=== PATIENT | female | born 1970 | race Caucasian/White ===

== ENCOUNTER 2019-08-08 15:57 | Inpatient (IN) | payer SELFPAY ==
[2019-08-08] VITALS (7 sets, daily range): BP systolic 150–200; BP diastolic 94–129; PULSE 103–123; RESP 16–30; TEMP 36.8–37; O2SAT 96–99; BMI 42.7
--- NOTE | ~2019-08-08 | XR_ITS ---
EXAMINATION: XR chest 2V EXAM DATE: 08/08/2019 17:05 INDICATION: Cough and weakness. TECHNIQUE: Frontal and lateral projections of the chest obtained and reviewed. Comparison is made to prior examination from 03/13/2017. FINDINGS: The lungs are clear. There are no pleural effusions. The cardiomediastinal silhouette is within normal limits. There is no pneumothorax suspected. The bones and soft tissues are unremarkab le. IMPRESSION: No acute cardiopulmonary findings. Reviewed, dictated and finalized at location A.
--- NOTE | 2019-08-08 16:25 | PC.NURSE ---
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
--- NOTE | 2019-08-08 16:47 | ECG_ITS ---
Measurements Intervals [place] Rate: 101 P: 73 DC: 144 QRS: -58 QRSD: 93 T: 46 QT: 381 QTc: 494 Interpretive Statements SINUS TACHYCARDIA LEFT ATRIAL ENLARGEMENT LEFT ANTERIOR FASCICULAR BLOCK POOR R WAVE PROGRESSION, ANTERIOR LEADS BORDERLINE ST-T WAVE ABNORMALITY- LATERAL LEADS BASELINE WANDER- I, II, AVR, AVL, V6 ABNORMAL ECG Electronically Signed On 08-09-2019 7:09:20 CDT by Kike Barrow D.O.
--- NOTE | 2019-08-08 16:50 | ED.WEAKNESS ---
HPI - Weakness General Chief complaint: Weakness <Lilian Mercedes PA-C - Last Filed: 08/08/19 18:50> Stated complaint: achey x8 months <UTE Lopez Last Filed: 08/08/19 18:50> Time Seen by Provider: 08/08/19 16:38 <Lilian Mercedes PA-C - Last Filed: 08/08/19 18:50> Source: patient <UTE Lopez Last Filed: 08/08/19 18:50> Mode of arrival: ambulatory <UTE Lopez Last Filed: 08/08/19 18:50> Limitations: no limitations <UTE Lopez Last Filed: 08/08/19 18:50> History of Present Illness HPI Narrative: This is a 49 year old female that presents to the ER for achiness x 8 months. Reports joint pain and myalgias mostly in her lower back pain and legs. Reports she has not been seen by anyone for this. Also reports a chronic cough and some congestion for the last couple of days. Reports some intermittent abdominal pain for a while as well. Denies fever, chest pain, shortness of breath, vomiting, diarrhea, dysuria or hematuria. <UTE Lopez Last Filed: 08/08/19 18:50> Related Data Home medications: Home Medications Medication Instructions Recorded Confirmed Unable to Obtain Home Medications 08/08/19 08/08/19 <UTE Lopez Last Filed: 08/08/19 18:50> Allergies/Adverse reactions: Allergies Allergy/AdvReac Type Severity Reaction Status Date / Time No Known Allergies Verified 10/24/09 16:24 <UTE Lopez Last Filed: 08/08/19 18:50> Review of Systems Review of Systems: Narrative: CONSTITUTIONAL: Denies fever ENT: Reports rhinorrhea, congestion. Denies sore throat, or otalgia. CARDIOVASCULAR: Denies chest pain, or edema. RESPIRATORY: Reports cough. Denies dyspnea. GASTROINTESTINAL: Reports abdominal pain. Denies nausea, vomiting, or diarrhea. GENITOURINARY: Denies dysuria or hematuria. MUSCULOSKELETAL: Reports back pain, joint pain, and myalgia. NEUROLOGIC: Denies numbness, or weakness. <Lilian Mercedes PA-C - Last Filed: 08/08/19 18:50> All systems reviewed & are unremarkable except as noted in HPI and below <Lilian Mercedes PA-C - Last Filed: 08/08/19 18:50> [facility] Past Medical History Medical History: Medical History (Updated 08/08/19 @ 16:56 by Lilian Mercedes PA-C) History of hypertension <Lilian Mercedes PA-C - Last Filed: 08/08/19 18:50> Social History Social History: Social History Smoking status: Current every day smoker <Lilian Mercedes PA-C - Last Filed: 08/08/19 18:50> Exam Narrative: Exam Narrative: GENERAL: Well-appearing, obese, and in no acute distress. HEAD: Normocephalic, atraumatic. EYES: EOMI. ENT: Nares clear, no rhinorrhea or epistaxis. Mucous membranes moist. Oropharynx without tonsillar hypertrophy exudate or other lesions. Bilateral TMs pearly hartman non-bulging NECK: Supple. No adenopathy or masses. CHEST: Clear to auscultation. No respiratory distress. No wheezes rales or rhonchi HEART: Regular rate and rhythm. No murmur heard. Normal peripheral pulses. ABDOMEN: Soft, nondistended, normal active bowel sounds. Mild tenderness to palpation throughout the abdomen, without guarding EXTREMITIES: Normal range of motion. No edema. Strength equal in bilateral upper and lower extremities SKIN: Warm, dry, no rash. NEURO: No focal deficits. Alert and oriented x3. PSYCH: Normal mood and affect <Lilian Mercedes PA-C - Last Filed: 08/08/19 18:50> Course TRANSPORTATION AGENT/PA Physician Supervision For this patient encounter, I reviewed the TRANSPORTATION AGENT or PA documentation, treatment plan, and medical decision making, and I had [id number] time with this patient. <Saul Rodríguez MD - Last Filed: 08/08/19 19:20> Vital Signs Vital signs: Vital Signs Temperature 36.8 C 08/08/19 16:14 Pulse Rate 118 H 08/08/19 16:14 Respiratory Rate 16 08/08/19 16:14 Blood Pressure 170/98 H 08/08/19 16:14 Pulse Oximetry 96 08/08/19 16:14 Temperatur
[2019-08-08 17:23] LABS: Basophils Absolute Auto 0.1 K/mm3 (0.0-0.1); Eosinophils Absolute Auto 0.2 K/mm3 (0-0.3); Eosinophils Percent Auto 1.2 % (0-4.4); Hematocrit 46.4 % (37.0-47.0); Immature Granulocyte Absolute 0.05 K/mm3 (0.00-0.031); Immature Granulocyte Percent A 0.4 % (0-0.5); Lymphocytes Absolute Auto 3.63 K/mm3 (0.9-3.2); Lymphocytes Percent Auto 26.2 % (18.3-44.2); Mean Corpuscular HGB Conc 32.3 g/dl (32-36); Mean Corpuscular Hemoglobin 27.2 pg (26-34); Mean Corpuscular Volume 84.1 fl (80-100); Mean Platelet Volume 11.6 fl (7.4-10.4); Monocytes Percent Auto 6.9 % (2.6-8.5); Neutrophils Absolute Auto 8.9 K/mm3 (1.3-6.7); Neutrophils Percent Auto 64.3 % (45.5-73.1); Platelet Count Result 275 k/mm3 (150-375); Red Blood Count 5.52 M/mm3 (4.2-5.4); Red Cell Distribution Width 13.9 % (11.5-14.5); White Blood Count 13.9 K/mm3 (4.5-10.0)
[2019-08-08 17:38] LABS: Alanine Aminotransferase 26 U/L (4-35); Albumin Level 3.5 g/dL (3.5-5.1); Alkaline Phosphatase 122 U/L (38-126); Aspartate Amino Transferase 34 U/L (14-36); Bilirubin,Total 0.2 mg/dL (0.2-1.3); Blood Urea Nitrogen 20 mg/dL (7-17); Calcium 8.8 mg/dL (8.4-10.2); Carbon Dioxide 23 mmol/L (22-30); Chloride 95 mmol/L (98-107); Estimated CRCL calculation 68 ml/min; Estimated Glomerular Filt Rate > 60; Glucose 625 mg/dL (65-105); Lipase 400 U/L (23-300); Potassium 4.4 mmol/L (3.4-5.0); Sodium 127 mmol/L (137-145)
[2019-08-08 17:50] LABS: CRP < 0.5 mg/dL (<1.0)
[2019-08-08] MEDS: ONDANSETRON INJ 4 MG/2 ML VIAL IV PUSH (18:03)
[2019-08-08] MEDS: INSULIN HUMAN REGULAR (*BKC) 100 UNITS/ML 9 UNITS IV PUSH (18:03)
[2019-08-08] MEDS: hydrALAZINE HCL 20 MG/ML VIAL IV PUSH (18:03)
[2019-08-08 18:04] LABS: Beta-Hydroxybutyrate/Acetoacetate 0.07 mmol/L (0.02-0.27)
[2019-08-08 18:08] LABS: Alveolar/Arterial O2 Gradient 37.8 mmHg; Base Excess ABG -0.3 mEq/l (+/-2.0); Carboxyhemoglobin 3.8 % THb (0-2.0); Fractional Inspired Oxygen 21 %; HCO3 ABG 23.6 mEq/l (22.0-26.0); Methemoglobin ABG 0.2 %THb (0-1.5); Oxygen Content ABG 19.7 %vol (16.0-22.0); Oxygen Saturation ABG 94.2 % (95.0-100.0); Oxyhemoglobin 90.5 % THb (90.0-100.0); PCO2 ABG 36.4 mmHg (35.0-45.0); PO2 ABG 68.3 mmHg (80.0-100.0); PO2 FiO2 Ratio Arterial Blood 3.25 %; Reduced Hemoglobin 5.5 %THb (0-5.0); Total Hemoglobin 15.5 g/dL (12.0-18.0); pH ABG 7.429 (7.350-7.450)
[2019-08-08 18:09] LABS: Magnesium 1.7 mg/dL (1.6-2.3); Phosphorus 6.3 mg/dL (2.5-4.5)
[2019-08-08 18:09] LABS: Device ROOM AIR; Site Drawn RIGHT BRACHIAL
[2019-08-08] MEDS: SODIUM CHLORIDE 0.9% IV 500 ML 999 ML IV CONT (18:13)
[2019-08-08 18:29] LABS: Hemoglobin A1C 11.5 % (<5.7)
[2019-08-08] MEDS: SODIUM CHLORIDE 0.9% IV 1,000 ML 999 ML IV CONT (18:46)
[2019-08-08 19:10] LABS: Add Urine Microscopic? YES; Appearance Urine Cloudy (Clear); Bilirubin Urine Negative (Negative); Blood Urine Negative (Negative); Color Urine Yellow (Yellow); Glucose Urine UA 3+ mg/dL (Negative); Ketones Urine Negative (Negative); Leukocyte Esterase Ur Trace LEU/UL (Negative); Mucus Urine Rare /lpf; Nitrate Urine Negative (Negative); Protein Urine 3+ mg/dL (Negative); Specific Grav Ur 1.029 (1.001-1.035); Squamous Epithelial Cell Urine Many /hpf (Few); Urobilinogen Urine Negative mg/dL (<2.0); WBC Urine 51-75 /hpf
[2019-08-08 19:11] LABS: Glucose Point of Care 356 (65-105)
[2019-08-08 21:18] LABS: Glucose Point of Care 423 (65-105)
[2019-08-08] MEDS: KETOROLAC 15 MG/ML VIAL (*BKC) IV PUSH (21:29)
--- NOTE | 2019-08-08 22:31 | PM.IMHP ---
H&P: HPI History of Present Illness Chief complaint: NEW ONSET DIABETES,HYPERTENSIVE URGENCY,HYPONATREM Narrative: This is a 49 year old morbidly obese female with known HTN who presented to the hospital with a complaint of diffuse body aches, abdominal discomfort, dysuria, increased urinartion and thirst, as well as generalized weakness. The patient is known to see Dr. Isaacs but states she hasn't followed up for several months. She can't tell me off the top of her head what blood pressure medication she is on. She denies any fevers, chills, sore throat, cough, nausea, vomiting, diarrhea, or rectal bleeding. The patient was evaluted in the ER tonight and found to have severely elevated blood pressure of 200/120 mm Hg. The patient's blood glucose was found to be 625 mg/dl. Her HgbA1c came back at 11.5%. The patient has a history of gestational diabetes. This is the first time she is being told that she is diabetic. The patient was treated in the ER with 1.5 Liters of NS as well as 9 units of insulin IV push. She was also given 20 mg of Hydralazine at 5 pm. We were asked to admit the patient to the hospital for her dehydration, UTI, and new onset diabetes mellitus. Review of Systems Review of Systems: All systems reviewed & are unremarkable except as noted in HPI and below PMFSH Past Medical History Medical History Gestational diabetes History of hypertension HTN (hypertension) with goal to be determined Social History Social History Smoking packs per day: 1 Smoking cigarettes per day: 20.0 Years smoked: 35 Smoking pack-years: 35.00 Smoking status: Current every day smoker Tobacco type: cigarettes Second hand tobacco smoke exposure: Yes Alcohol intake: current Substance use: never Gender identity (if verbalized by the patient): Female Spiritual care concerns: No Agree to blood products: Yes Meds Home Medications and Allergies Home Medications Medication Instructions Recorded Confirmed Type Unable to Obtain Home Medications 08/08/19 08/08/19 History Allergies Allergy/AdvReac Type Severity Reaction Status Date / Time No Known Allergies Verified 10/24/09 16:24 Vital Signs Vital Signs - 24 hr 08/08/19 16:14 08/08/19 18:11 08/08/19 18:12 Temperature 36.8 C Pulse Rate 118 H 105 H 112 H Respiratory Rate 16 30 H Blood Pressure 170/98 H 200/120 H Pulse Oximetry 96 99 08/08/19 19:30 08/08/19 20:30 08/08/19 21:20 Temperature Pulse Rate 109 H 123 H 105 H Respiratory Rate 20 20 20 Blood Pressure 178/102 H 182/129 H 150/105 H Pulse Oximetry 99 99 99 Exam Const: General: cooperative, no acute distress, alert, awake and ill appearing chronically Nutritional Appearance: obese morbidly obese Orientation/consciousness: patient oriented x3 HENMT: Head: normal to inspection General nose exam: Normal external nose present Face and sinus: normal facial exam Mouth: Yes Normal oral and palatal mucosa present and Yes oropharynx normal Eyes: Pupils: Equal, round and reactive pupils present EOM: EOMs intact bilaterally Neck: Neck: supple and no JVD Thyroid: thyroid normal Lymphatic: lymphadenopathy not noted Resp: Effort & Inspection: normal respiratory effort Auscultation: clear to auscultation bilaterally Cardio: Rate: tachycardic Rhythm: regular rhythm Heart sounds: no murmurs GI: Inspection: normal to inspection Auscultation: normal bowel sounds Skin: General skin exam: normal color and no rashes or lesions noted Neuro: General: patient oriented x3 Cranial nerves: Yes CN's II-XII intact bilaterally and Yes Equal, round and reactive pupils present Speech: normal speech Motor exam (neuro): 5/5 motor strength present throughout Sensory Exam: normal sensation Extrem: General: normal to inspection and no edema Psych: Mental Status: mental status
[2019-08-08 22:33] LABS: Glucose Point of Care 446 (65-105)
--- NOTE | 2019-08-08 22:48 | ADMGEN ---
This patient, Josy Perez, was admitted to [address] [facility] Surg Room 316-01. Patient/family oriented to hospital policies and general routines including ID bracelet, bed and alarms, visiting hours, pain management, procedures, bathroom and other care routines, personal items, smoking policy, room service/diet, and visiting hours. Valuables list has been completed. Information on how to activate the Rapid Response Team has been discussed. Patient/Family are encouraged to report perceived risks to care and to ask questions if they do not understand what they are told or what they should do.
[2019-08-08] MEDS: INSULIN ASPART (*BKC) 100 UNITS/ML 10 UNITS SUB-Q (23:12)
[2019-08-08] MEDS: SODIUM CHLORIDE 0.9% IV 1,000 ML 999 ML (23:23)
[2019-08-09 04:21] LABS: Glucose Point of Care 189 (65-105)
[2019-08-09] MEDS: hydrALAZINE HCL 20 MG/ML VIAL 10 MG IV PUSH (05:54)
[2019-08-09 05:59] LABS: Basophils Absolute Auto 0.1 K/mm3 (0.0-0.1); Basophils Percent Auto 0.8 % (0.2-1.2); Eosinophils Absolute Auto 0.3 K/mm3 (0-0.3); Eosinophils Percent Auto 2.2 % (0-4.4); Hemoglobin 13.1 g/dL (12.0-15.0); Immature Granulocyte Absolute 0.05 K/mm3 (0.00-0.031); Immature Granulocyte Percent A 0.4 % (0-0.5); Lymphocytes Absolute Auto 4.73 K/mm3 (0.9-3.2); Lymphocytes Percent Auto 40.2 % (18.3-44.2); Mean Corpuscular HGB Conc 31.2 g/dl (32-36); Mean Corpuscular Hemoglobin 26.7 pg (26-34); Mean Corpuscular Volume 85.5 fl (80-100); Monocytes Absolute Auto 0.9 K/mm3 (0.1-0.6); Monocytes Percent Auto 7.8 % (2.6-8.5); Neutrophils Absolute Auto 5.7 K/mm3 (1.3-6.7); Neutrophils Percent Auto 48.6 % (45.5-73.1); Platelet Count Result 233 k/mm3 (150-375); Red Blood Count 4.91 M/mm3 (4.2-5.4); White Blood Count 11.8 K/mm3 (4.5-10.0)
[2019-08-09 06:00] VITALS: BP 167/115; PULSE 95; RESP 20; TEMP 36.8; O2SAT 97
[2019-08-09 06:32] LABS: Blood Urea Nitrogen 20 mg/dL (7-17); Calcium 7.6 mg/dL (8.4-10.2); Carbon Dioxide 26 mmol/L (22-30); Chloride 101 mmol/L (98-107); Estimated CRCL calculation 62 ml/min; Estimated Glomerular Filt Rate 52; Glucose 284 mg/dL (65-105); Lipase 1204 U/L (23-300); Potassium 4.1 mmol/L (3.4-5.0); Sodium 130 mmol/L (137-145)
[2019-08-09 06:55] VITALS: BP 154/85
[2019-08-09 07:55] LABS: Glucose Point of Care 276 (65-105)
[2019-08-09] MEDS: INSULIN ASPART (*BKC) 100 UNITS/ML SUB-Q ×2 (08:38→12:29)
[2019-08-09] MEDS: INSULIN GLARGINE (*BKC) 100 UNITS/ML 21 UNITS SUB-Q (08:39)
[2019-08-09 12:13] LABS: Glucose Point of Care 286 (65-105)
--- NOTE | 2019-08-09 13:45 | PM.DS ---
DS: Diagnosis Admitting Diagnosis Admitting Diagnosis: Type 2 diabetes mellitus with hyperglycemia Discharge Diagnosis (1) Hyperglycemia due to type 2 diabetes mellitus: Qualifiers: Diabetes mellitus rodent exterminator insulin use: without skilled nursing use Qualified Code(s): E11.65 - Type 2 diabetes mellitus with hyperglycemia Code(s): E11.65 - Type 2 diabetes mellitus with hyperglycemia Status: Acute Assessment and Plan: Home with basal insulin, metformin, glipizide (2) Uncontrolled hypertension: Code(s): I10 - Essential (primary) hypertension Status: Chronic Assessment and Plan: Patient was noncompliant with home meds. Hydralazine and clonidine utilized while hospitalized Resume upon discharge. (3) Elevated lipase: Code(s): R74.8 - Abnormal levels of other serum enzymes Status: Acute Assessment and Plan: May be secondary to uncontorlled (4) Leukocytosis: Qualifiers: Leukocytosis type: unspecified Qualified Code(s): D72.829 - Elevated white blood cell count, unspecified Code(s): D72.829 - Elevated white blood cell count, unspecified Status: Acute Assessment and Plan: Likely secondary to UTI vs. hyperglycemia. Monitor CBCd. (5) Hyponatremia: Code(s): E87.1 - Hypo-osmolality and hyponatremia Status: Acute Assessment and Plan: Appears to be pseudohyponatremia from hyperglycemia. Corrected sodium for glucose is 135. Monitor serum sodium. (6) Dehydration: Code(s): E86.0 - Dehydration Status: Acute Assessment and Plan: Secondary to hyperglycemia and polyuria. We will administer another 1 liter NS now. Continue IV hydration overnight. Monitor urine output. (7) Tobacco dependence: Code(s): F17.200 - Nicotine dependence, unspecified, uncomplicated Status: Chronic Assessment and Plan: I have counseled the patient on tobacco cessation for 4 minutes. She verbalized her undrestanding and agreement. (8) Type 2 diabetes mellitus with diabetic polyneuropathy: Code(s): E11.42 - Type 2 diabetes mellitus with diabetic polyneuropathy Status: Acute Assessment and Plan: Likely due to hyperglycemia. A1c 11.4% Start gabapentin. DS: Summary Hospital Course Reason for hospitalization: Uncontrolled diabetes and hypertension Hospital Course: Patient presented with generalized aches and pains especially in the hands and feet. Found to have a blood sugar of 625. Terry wanted to repeated doses of subcutaneous insulin as well as IV fluids. Urinalysis was abnormal but appeared to be contaminated with many squamous cells noted. No bacteria were seen. She received ceftriaxone while inpatient. Lipase was elevated but felt to be due to uncontrolled diabetes. Sodium was was low and again felt to be due to on controlled diabetes. Blood sugar improved to 284 by morning of discharge. She was up and about with her walker as is her usual. She was tolerating her diet. She was encouraged to fill her prescriptions and take her medication. She had not been taking her medication at home. She did not realize that her primary physician had retired months ago. Status at Discharge Functional status at discharge: uses cane/walker Overall status at discharge: patient is progressing back to baseline Time Spent with Patient Time attestation: Total time spent providing and/or coordinating discharge services: 35 min Time spent: Greater than 30 minutes Exam Narrative: Exam Narrative: HEENT: EOMI, PERRL, pharyngeal mucosa pink and intact NECK: No JVD, adenopathy, or thyromegaly CHEST: Clear to auscultation. Normal effort. HEART: NL S1/S2, regular, no murmur ABDOMEN: BS+, soft, nontender, no mass, no bruits EXTREMITIES: No cyanosis, edema, or clubbing; without hyperalgesia or inflammatory changes or tenderness in hands or feet NEUROLOGIC: CN intact and symmetric to inspection. MUSCULOSKEL
[2019-08-09 14:00] VITALS: BP 147/73; PULSE 84; RESP 18; TEMP 36.8; O2SAT 99
[2019-08-09 14:50] VITALS: BMI 42.7
[2019-08-09] MEDS: CLONIDINE HCL 0.1 MG TABLET PO (15:26)
== END 2019-08-09 17:10 | disposition home or self-care (01) | DRG 420 ==
LOC: ANHED 16:38 → ANH3MEDSUR 20:53
PROVIDERS: Physician Assistant; Admitting Provider Family Medicine; Emergency Provider Emergency Medicine; Visit Provider Internal Medicine
DX: E11.65 Type 2 diabetes mellitus with hyperglycemia (principal); I16.0 Hypertensive urgency; E11.42 Type 2 diabetes mellitus with diabetic polyneuropathy; D72.829 Elevated white blood cell count, unspecified; E87.1 Hypo-osmolality and hyponatremia; E86.0 Dehydration; F17.200 Nicotine dependence, unspecified, uncomplicated; Z68.41 Body mass index [BMI] 40.0-44.9, adult; Z91.14 Patient's other noncompliance with medication regimen; E66.01 Morbid (severe) obesity due to excess calories
CPT/HCPCS: 36415; 36600; 71046; 80048; 80053; 81001; 82010; 82375; 82805; 83036; 83050; 83690; 83735; 84100; 84443; 85025; 86140; 87086; 93005; 96361; 96365; 96374; 96375; 99285; A9270; G0378; G0379; J0131; J0360; J0696; J1815; J1885; J2405; J7030; J7040

== ENCOUNTER 2019-12-20 17:49 | Observation (INO) | payer MEDICAID, SELFPAY ==
[2019-12-20] VITALS (9 sets, daily range): BP systolic 113–224; BP diastolic 59–123; PULSE 97–105; RESP 14–15; TEMP 36.7; O2SAT 98–100
--- NOTE | ~2019-12-20 | CT_ITS ---
EXAMINATION: CT brain wo con EXAM DATE: 12/20/2019 22:10 INDICATION: Fall, head injury. Generalized headache. TECHNIQUE: Spiral CT of the head was performed without contrast. Axial, coronal and sagittal images were reviewed. The dose-length product (DLP) for this examination was 605.33 mGy-cm. The exposure w as tailored according to patient size, and iterative reconstruction (ASIR) was used as additional dos e reduction technique. There is no prior study for comparison. FINDINGS: There is no acute intraparenchymal hemorrhage. No evidence of intraparenchymal brain mass lesion. No evidence of acute infarction. Mild microangiopathy. There is no mass effect or midline sh ift. The ventricles are normal in size. There are no extra-axial collections. There are no acute c alvarial fractures. The orbits are unremarkable. Soft tissue is unremarkable. Small right mastoid e ffusion. IMPRESSION: 1. No acute intracranial findings. Reviewed, dictated and finalized at location A.
--- NOTE | ~2019-12-20 | CT_ITS ---
EXAMINATION: CTA chest PE protocol EXAM DATE: 12/20/2019 22:09 INDICATION: Shortness of breath, elevated d-dimer, pneumonia. TECHNIQUE: Spiral CTA of the chest (pulmonary arteries) was performed with 100 cc Omnipaque 350 intr avenous contrast injection. Images were acquired during the pulmonary arterial phase. Coronal maxi mum intensity projection 3D-reconstructions were created by the technologist on dedicated workstation . Axial, coronal and sagittal reformatted images were reviewed. The dose-length product (DLP) for t his examination was 1018.16 mGy-cm. The exposure was tailored according to patient size (auto mA ex posure control), and iterative reconstruction (ASIR) was used as additional dose reduction technique. There is no prior study for comparison. FINDINGS: Pulmonary arteries are well opacified and without intraluminal filling defects. No thora cic aortic dissection. There is cardiomegaly. There are moderate bilateral pleural effusions with adj acent multisegmental bibasilar atelectasis. Can't exclude superimposed infection. Tracheobronchial tr ee is patent. There is no mediastinal, hilar or axillary lymphadenopathy. There is no pneumothora x. There is mild coronary arterial calcification, arterial sclerosis. Approximately half of the spleen is hypodense and also appears expanded, could be edematous if this i s acute infarction. Differential diagnosis does include necrotic mass, subcapsular seroma, abscess. T here is thoracic spondylosis without osteoblastic or osteolytic lesions identified. IMPRESSION: 1. No pulmonary emboli. 2. Cardiomegaly. Moderate pleural effusions and adjacent multisegmental atelectasis. Pneumonia not e xcludable. 3. Large splenic hypodensity, low density and appearance could indicate acute infarction. Recommend follow-up CT abdomen without and with contrast (after this contrast has been excreted, please wait at least 12 hours) which may help exclude other possibilities. Reviewed, dictated and finalized at location A. IMPRESSION: 1. No pulmonary emboli. 2. Cardiomegaly. Moderate pleural effusions and adjacent multisegmental atelec tasis. Pneumonia not excludable. 3. Large splenic hypodensity, low density and appearance could indicate acute infarction. Recommend follow-up CT abdomen without and with contrast (after thi s contrast has been excreted, please wait at least 12 hours) which may help exc lude other possibilities.
--- NOTE | ~2019-12-20 | CT_ITS ---
EXAMINATION: CT abdomen pelvis wo con DATE: 12/21/2019 11:30 INDICATION: Low abdominal pain. Splenic hypodensity. TECHNIQUE: Computed tomography (CT) of the abdomen and pelvis was performed without intravenous contr ast. Automated exposure control and iterative reconstruction technique were employed. The dose-length product was 1515.13 mGy-cm. COMPARISON: Chest CT 12/20/2019, CT abdomen and pelvis 11/21/2016 FINDINGS: The visualized portions of the lung bases demonstrate small pleural effusions and atelectas is with a dependent predominance. A calcified left lung nodule and calcified paraesophageal lymph nod e are consistent with old granulomatous disease. Cardiomegaly is noted. No pericardial effusion. The liver is normal. 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 There is a 10.1 x 6.4 cm mass in the spleen with attenuation of 28 HU, which enlarges the spleen. The pancreas, adrenal glands, and kidneys are normal. There are no dilated loops of bowel. The appendix is normal. There are no pathologically enlarged lymph nodes. There is no free intraperitoneal fluid. There is a benign bone island in right ilium. There is moderate thoracic spondylosis and mild lumbar spondylosi s. IMPRESSION: 1. 10.1 x 6.4 cm splenic mass, new from 11/21/16, most likely a subacute hematoma. 2. Small pleural effusions. Reviewed, dictated and finalized at location B. IMPRESSION: 1. 10.1 x 6.4 cm splenic mass, new from 11/21/16, most likely a subacute hematom a. 2. Small pleural effusions.
--- NOTE | ~2019-12-20 | XR_ITS ---
EXAMINATION: XR chest 1V portable EXAM DATE: 12/20/2019 19:00 INDICATION: Cough. TECHNIQUE: Portable AP frontal chest x-ray was obtained. Comparison is made to prior examination from 08/08/2019. FINDINGS: Dense left lower lobe segmental, and smaller amount of right lower lobe edema or pneumonia. The cardiac silhouette is enlarged. There is no pneumothorax suspected. Possible small left pleural effusion. There are no osseous abnormalities identified. IMPRESSION: 1. Acute bibasilar edema or pneumonia left more confluent than right. Clinical correlation. Reviewed, dictated and finalized at location A. IMPRESSION: 1. Acute bibasilar edema or pneumonia left more confluent than right. Clinica l correlation.
[2019-12-20 18:01] LABS: Glucose Point of Care 440 (65-105)
--- NOTE | 2019-12-20 18:10 | ED.GENADULT ---
HPI - General Adult General Chief complaint: Nausea/Vomiting/Diarrhea Stated complaint: AMB Source: patient Mode of arrival: EMS Limitations: no limitations History of Present Illness HPI narrative: Patient is vague about character and duration of symptoms. 49 y.o. with DM type 2 and HTN c/o weakness and shortness of breath since last week sometime. She states she has had chronic diarrhea and periodic vomiting for years. The latter has been much worse over the past week associated with lower abdominal discomfort. She has been short of breath with exertion recently. Today she had an attack SOB which prompted her evaluation. She has an occasional cough. She fell on 4 occasions in the past week contusing her buttocks, hitting her head and possibly other, forgotten areas. Since then she has been getting periodic bouts of head pain. Records reveal an admission to [facility] in July where she was first diagnosed with diabetes and also dx. with uncontrolled hypertension. Pt had been prescribed amlodipine, lisinopril- hctz, glipizide, metformin, Basaglar KwikPen u-100 u insulin to administer once daily and gabapentin. Pt. states she lost the medicine somewhere in the house but she's been so weak and falling that she hasn't been able to get up and look for them. She's not sure how long she's been out. Pt states she has been to [facility], [place], [place] and [facility] with complaints and is sent home. Related Data Allergies Allergy/AdvReac Type Severity Reaction Status Date / Time No Known Allergies Verified 10/24/09 16:24 Review of Systems Constitutional: Constitutional: Reports no additional constitutional complaints, Denies chills and Denies fever(s) ENT: Denies nasal congestion and Denies sore throat Cardiovascular: Cardiovascular: Denies chest pain Respiratory: Respiratory: Reports no additional respiratory complaints Gastrointestinal: Gastrointestinal: Denies melena and Reports diarrhea Genitourinary: Genitourinary: Denies dysuria Musculoskeletal: Musculoskeletal: Reports muscle weakness (legs get so weak she falls. ) and Denies numbness Integumentary/Breasts: Skin/Breast: Denies rash Neurologic: Denies syncope [facility] Past Medical History Medical History (Updated 12/21/19 @ 02:36 by Mahesh Addison MD) Gestational diabetes History of hypertension HTN (hypertension) with goal to be determined Obesity Social History Social History Smoking packs per day: 1 Smoking cigarettes per day: 20.0 Years smoked: 35 Smoking pack-years: 35.00 Smoking status: Current every day smoker Tobacco type: cigarettes Second hand tobacco smoke exposure: Yes Alcohol intake: current Substance use: never Gender identity (if verbalized by the patient): Female Spiritual care concerns: No Agree to blood products: Yes Exam Const: General: alert (On initial presentation pt. laying on side, moaning in distress) and ill appearing; No diaphoretic Orientation/consciousness: patient oriented x3 HENMT: Face and sinus: no sinus tenderness Mouth: Yes moist mucous membranes Eyes: EOM: EOMs intact bilaterally Neck: Neck: no lymphadenopathy Chest: Chest palpation & inspection: normal inspection of the chest Resp: Auscultation: no rales, no rhonchi, wheezes and diminished lung sounds Other: audible wheezes. Cardio: Rate: regular rate Rhythm: regular rhythm Heart sounds: no murmurs GI: Other: Tender across lower abdomen and panniculus : General: Yes no CVA tenderness Skin: Other: Moist, red rash speckled with white dots c/w candidal infection. Neuro: General: patient oriented x3 Extrem: General: normal to inspection Psych: Appearance: disheveled Mental Status: mental status grossly normal Thought content: Yes Normal thought content present Course Vital Signs Vital signs: Vital Signs Blood Pressure 204/113 H
--- NOTE | 2019-12-20 18:37 | ECG_ITS ---
Measurements Intervals [place] Rate: 98 P: 60 [place]V: 160 QRS: -18 QRSD: 104 T: 54 QT: 396 QTc: 506 Interpretive Statements SINUS RHYTHM LEFT ATRIAL ENLARGEMENT POOR R WAVE PROGRESSION, CONSIDER ANTERIOR INFARCT BASELINE WANDER- I, II, III ABNORMAL ECG Electronically Signed On 12-20-2019 19:38:52 CDT by Kike Barrow D.O.
[2019-12-20] MEDS: SODIUM CHLORIDE 0.9% IV 500 ML 999 ML IV CONT (18:59)
[2019-12-20 19:47] LABS: Basophils Absolute Auto 0.05 K/mm3 (0.00-0.10); Basophils Percent Auto 0.4 % (0.0-1.0); Eosinophils Absolute Auto 0.01 K/mm3 (0.02-0.50); Eosinophils Percent Auto 0.1 % (1.0-6.0); Hematocrit 43.1 % (35.0-49.0); Hemoglobin 13.1 g/dL (12.0-15.0); Immature Granulocyte Absolute 0.07 K/mm3 (0.00-0.00); Immature Granulocyte Percent A 0.6 % (0.0-0.0); Lymphocytes Absolute Auto 1.19 K/mm3 (1.10-4.50); Lymphocytes Percent Auto 10.1 % (18.0-42.0); Mean Corpuscular HGB Conc 30.4 g/dL (32.0-36.0); Mean Corpuscular Hemoglobin 25.4 pg (27.0-31.0); Mean Corpuscular Volume 83.7 fL (78.0-102.0); Mean Platelet Volume 11.3 fl (9.2-11.8); Monocytes Absolute Auto 0.59 K/mm3 (0.10-0.90); Neutrophils Absolute Auto 9.9 K/mm3 (1.7-7.2); Neutrophils Percent Auto 83.8 % (50.0-70.0); Platelet Count Result 400 K/mm3 (150-420); Red Blood Count 5.15 M/mm3 (4.20-5.40); Red Cell Distribution Width 14.6 % (11.6-14.4); White Blood Count 11.8 K/mm3 (4.8-10.8)
[2019-12-20 19:51] LABS: Add Urine Microscopic? YES; Appearance Urine Sl Cloudy (Clear); Bilirubin Urine 1+ (Negative); Blood Urine 1+ (Negative); Color Urine Yellow (Yellow); Glucose Urine UA 3+ (Negative); Ketones Urine 1+ (Negative); Leukocyte Esterase Ur Negative (Negative); Nitrate Urine Negative (Negative); Protein Urine 3+ (Negative); Specific Grav Ur 1.015 (1.010-1.020); Urobilinogen Urine 0.2 mg/dL (0.2-1.0)
[2019-12-20 20:02] LABS: Bacteria Urine 1+ /hpf; Budding Yeast Urine Present /hpf; Squamous Epithelial Cell Urine Few /hpf (Few)
[2019-12-20 20:06] LABS: Alanine Aminotransferase 19 U/L (14-59); Albumin Level 1.8 g/dL (3.4-5.0); Alkaline Phosphatase 102 U/L (46-116); Anion Gap 8 mmol/L (8-16); Aspartate Amino Transferase 22 U/L (15-37); Bilirubin,Total 0.4 mg/dL (0.00-1.00); Blood Urea Nitrogen 12 mg/dL (7-18); Calcium 8.3 mg/dL (8.5-10.1); Carbon Dioxide 29 mmol/L (21-32); Chloride 96 mmol/L (98-108); Estimated CRCL calculation 63 ml/min; Estimated Glomerular Filt Rate 45; Osmolality Calculated 294 mOsm/kg (285-295); Potassium 3.2 mmol/L (3.5-5.1); Sodium 133 mmol/L (136-145); Total Protein 7.1 g/dL (6.4-8.2); Troponin I 0.03 ng/mL (0.00-0.056)
[2019-12-20 20:07] LABS: D Dimer 1.45 mg/L (0.19-0.50)
[2019-12-20 20:08] LABS: Glucose 439 mg/dL (70-99)
[2019-12-20 21:45] LABS: Lipase 72 U/L (73-393)
--- NOTE | 2019-12-20 23:26 | PC.NURSE ---
2325 RN REQUESTS INPATIENT ROOM. PEDRO, DROP WIRE ALIGNER, PROVIDED ROOM 203.
--- NOTE | 2019-12-20 23:52 | PC.NURSE ---
PT HAS BEEN HAVING AUDITORY HALLUCINATIONS DURING ER TREATMENT, REFERRING TO THE HALLUCINATION SISSY
--- NOTE | 2019-12-20 23:53 | PC.NURSE ---
REPORT PROVIDED TO RACHEL STONE
[2019-12-21] VITALS (12 sets, daily range): BP systolic 136–204; BP diastolic 10–116; PULSE 79–105; RESP 16–22; TEMP 36.1–37.3; O2SAT 94–98; BMI 42.5
[2019-12-21] MEDS: cloNIDine HCL 0.1 MG TABLET PO (00:05)
--- NOTE | 2019-12-21 00:07 | PC.NURSE ---
0000 Requested that ERP address pts. BP as she has been in ER for 6 hrs. Orders received. Pt. resting in bed, talking to herself when entering room. Pt. has hx of bipolar and hasn't had any of her meds for days. Pt. states she hasn't been able to take any of them. Pt. sipping on ice water and requesting food from vending machine. Request denied as pt. is on special diet orders.
[2019-12-21 00:30] LABS: BNP 868 pg/mL (0-100)
[2019-12-21 00:34] LABS: Glucose Point of Care 278 (65-105)
[2019-12-21 00:54] LABS: Magnesium 2.1 mg/dL (1.8-2.4)
[2019-12-21] MEDS: LACTATED RINGERS 1,000 ML 75 ML IV CONT ×2 (02:22→17:14)
[2019-12-21] MEDS: POTASSIUM CHLORIDE 20 MEQ TABLET 40 MEQ PO (02:51)
--- NOTE | 2019-12-21 04:40 | PC.NURSE ---
Azithromycin started on 12/21/19 @ 0340 and stopped @ 12/21/19 [id number]
--- NOTE | 2019-12-21 05:00 | ECG_ITS ---
Measurements Intervals [place] Rate: 100 P: 77 WI: 164 QRS: -56 QRSD: 101 T: 63 QT: 393 QTc: 507 Interpretive Statements SINUS TACHYCARDIA LEFT ATRIAL ENLARGEMENT LEFT AXIS DEVIATION LOW QRS VOLTAGE IN LIMB LEADS POOR R WAVE PROGRESSION, CONSIDER ANTERIOR INFARCT BASELINE ARTIFACT- I, III, AVR, AVL ABNORMAL ECG Electronically Signed On 12-21-2019 7:21:07 CDT by Kike Barrow D.O.
--- NOTE | 2019-12-21 05:43 | ADMGEN ---
This patient, Josy Perez, was admitted to 2nd Floor Room 211-1. Patient oriented to hospital policies and general routines including ID bracelet, bed and alarms, visiting hours, pain management, procedures, bathroom and other care routines, personal items, smoking policy, room service/diet, and visiting hours. Valuables list includes clothing and purse. Information on how to activate the Rapid Response Team has been discussed. Patient/Family are encouraged to report perceived risks to care and to ask questions if they do not understand what they are told or what they should do.
[2019-12-21 06:23] LABS: Anion Gap 9 mmol/L (8-16); Blood Urea Nitrogen 16 mg/dL (7-18); Calcium 7.5 mg/dL (8.5-10.1); Carbon Dioxide 25 mmol/L (21-32); Chloride 95 mmol/L (98-108); Estimated CRCL calculation 61 ml/min; Estimated Glomerular Filt Rate 52; Osmolality Calculated 286 mOsm/kg (285-295); Potassium 3.1 mmol/L (3.5-5.1); Sodium 129 mmol/L (136-145); Troponin I 0.05 ng/mL (0.00-0.056)
[2019-12-21 06:29] LABS: Lactic Acid 1.2 mmol/L (0.4-2.0)
[2019-12-21 06:31] LABS: Glucose 403 mg/dL (70-99)
[2019-12-21 06:47] LABS: Influenza Control Valid (Valid)
--- NOTE | 2019-12-21 07:21 | ECHO_ITS ---
Patient Info Name: Josy Perez Age: 49 years : 1970 Gender: Female Ht: 62 in Wt: 232 lbs BSA: 2.21 m2 HR: 86 bpm BP: 184 / 107 mmHg Heart Rhythm: Sinus Rhythm Technical Quality: Fair Exam Date: 12/21/2019 9:52 AM Exam Location: [facility] Patient Status: Inpatient Admit Date: 12/21/2019 Staff Ordering Physician: Arti Albarran NP Group Art Supervisor: Anali Willingham RDCS Attending Provider: Mahesh Addison MD Referring Physician: Deion JOY; Exam Type: CA echo doppler color flow Study Info Indications I10 - Essential (primary) hypertension R06.00 - Dyspnea, unspecified Complete two-dimensional, color flow and Doppler transthoracic echocardiogram is performed. Strain analysis performed. History/Risk Factors Hypertension: Yes Diabetic Therapy: Insulin Obesity: Yes Diabetes Mellitus: Yes Tobacco Use: Current - Every Day If Any Current, Tobacco Type: Cigarettes If Current - Every Day \T\ Cigarettes, Amount: Heavy Tobacco Use (>=10/day) Frailty Scale (CSHA): 5: Mildly Frail Summary 1. Group Art Supervisor note: PT WOULD NOT LET ME FINISH EXAM. I WAS UNABLE TO GET THE REMAINING 2 CH, 3 CH, SUBCOSTALS OR SUPRASTERNAL NOTCH. PT APPEARS TO HAVE MENTAL RESTRICTION. 2. Left ventricular chamber dimension is normal. 3. Left ventricular systolic function is normal, estimated at 55-60%. 4. There is moderately increased left ventricular wall thickness. 5. The left ventricular diastolic function is grade I diastolic dysfunction. 6. E/e' 34 is significantly elevated. 7. Global longitudinal strain is abnormal at -7.8%. 8. Small mobile echogenic mass noted attached to left coronary cusp suggestive of vegetation. 9. There is mild aortic valve sclerosis. 10. The mitral valve has severely calcified leaflets and moderately calcified annulus. 11. Small mobile echogenic mass noted attached to posterior mitral valve leaflet suggestive of vegetation. 12. There is mild mitral valve regurgitation. Recommendations * Continue medical therapy for diabetes. * Smoking cessation counseling is recommended for this patient. Left Ventricle Group Art Supervisor note: PT WOULD NOT LET ME FINISH EXAM. I WAS UNABLE TO GET THE REMAINING 2 CH, 3 CH, SUBCOSTALS OR SUPRASTERNAL NOTCH. PT APPEARS TO HAVE MENTAL RESTRICTION. E/e' 34 is significantly elevated. Global longitudinal strain is abnormal at -7.8%. Left ventricular chamber dimension is normal. Left ventricular systolic function is normal, estimated at 55-60%. There is moderately increased left ventricular wall thickness. The left ventricular diastolic function is grade I diastolic dysfunction. Right Ventricle Right ventricular chamber dimension is normal. Right ventricular systolic function is normal. Left Atria Left atrial chamber dimension is normal. Right Atria Right atrial chamber dimension is normal. Aortic Valve Small mobile echogenic mass noted attached to left coronary cusp suggestive of vegetation. The aortic valve is trileaflet. There is mild aortic valve sclerosis. There is no aortic valve stenosis. There is no aortic valve regurgitation. Pulmonic Valve There is no pulmonic regurgitation. Mitral Valve The mitral valve has severely calcified leaflets and moderately calcified annulus. Small mobile echogenic mass noted attached to posterior mitral valve leaflet suggestive of vegetation. There is no mitral valve stenosis. There is mild mitral valve regurgitation. Tricuspid
[2019-12-21] MEDS: lisinopriL 20 MG TABLET PO (07:56)
[2019-12-21] MEDS: amLODIPine BESYLATE 5 MG TABLET 10 MG PO (07:56)
[2019-12-21] MEDS: hydroCHLOROthiazide 25 MG TABLET PO (07:57)
[2019-12-21] MEDS: ENOXAPARIN 40 MG/0.4 ML SYRINGE SUB-Q (07:59)
[2019-12-21] MEDS: GABAPENTIN 300 MG CAPSULE PO ×2 (08:00→17:11)
[2019-12-21] MEDS: MICONAZOLE NITRATE 2% CREAM 30 GM TUBE 1 APPLIC TOPICAL ×2 (08:00→21:33)
--- NOTE | 2019-12-21 08:28 | PM.IMHP ---
H&P: HPI History of Present Illness Date/Time: 12/21/19 08:28 <Arti Albarran, FRONT END DEVELOPER DESIGNER - Last Filed: 12/21/19 19:15> Chief complaint: Shortness of Breath <Arti Albarran, FRONT END DEVELOPER DESIGNER - Last Filed: 12/21/19 19:15> Narrative: Josy Perez is a 49 year old female admitted to the ED yesterday evening with shortness of breath and weakness for the past week. She stated she had chronic diarrhea and periodic vomiting for years. The vomitting had been worse over the past week, plus she started having an associated lower abdominal discomfort. Recently, she has been short of breath with exertion recently. Yesterday, she had an attack SOB which prompted her to go to the ED. She has an occasional cough and states that after her fall she had bloody and darkened sputum. She fell on 4-5 occasions in the past week; contusing her buttocks, hitting her head and flat on my abdomen . Since her falls, she has been getting periodic bouts of head pain. During her July admission to [facility], she was first diagnosed with diabetes and also dx. with uncontrolled hypertension. Pt had been prescribed amlodipine, lisinopril- hctz, glipizide, metformin, Basaglar KwikPen u-100 u insulin to administer once daily and gabapentin. BUT the patient told the ED doc that she lost the medicine somewhere in the house. And since she's been so weak and falling, that she hasn't been able to get up and look for her meds. She's not sure how long she's been without her meds. Pt states she has been to 4 different local hospitals: [place], [place], [place] and [facility] with complaints and is sent home. CT head had no acute changes. Her BPs were very high in ED; she was given clonidine in E.D. and started back on amlodipine and lisinopril/HCtz. Josy has a history of type 2 diabetes, hypertension, and weakness. She stated that she has been weak for many months >3 months, when I pushed her to ask how long she had been unable to walk without falling. She stated that there was no specific reason why she had been getting progressively weaker. When I asked her if she had tried physical therapy, she stated I just can't do it . She may benefit from antidepressant therapy And need a referral to a counselor and psychiatrist for major depression. She is a current everyday smoker, 1 pack per day. She is having difficulty processing her thoughts and communicating in a linear fashion. We will order a CT of the abdomen with contrast, but the patient refused the contrast so a CT of the abdomen and pelvis was completed without contrast. Her blood sugars, pulse, and blood pressures have been out of control without her taking medications at home. We will attempt to get her glucose levels under control with sliding scale insulin at the moderate dose level, her glucose levels are currently 312. Her systolic blood pressures since admission have been over 170 consistently. We will restart her home medications to better control her Blood pressures, including amlodipine at 10 mg and lisinopril. Her chest x-ray showed some possible bilateral pneumonia, the ED physician started her on IV Rocephin and IV azithromycin. ED physician ordered a COVID test, collected this morning, and that is pending. She was also ruled out for influenza a and B in those were both found to be negative. Her D-dimer has been elevated, the ED physician ordered a CT a of the chest and there was no pulmonary embolism found. She was started on Lovenox 40 subcu daily as DVT prophylaxis. She has had no coughing or sputum or expectorant during my exams and time spent with her. She has also not been short of breath or dyspneic with our conversations. her oxygen levels on room air show an SpO2 of 96% but at times when she complains of shortness of breath nursing staff will put her on 2 L of oxygen as needed per nasal cannula. She has some mild leukocytosis with a white blood cell count of 11.8. With her el
[2019-12-21 12:36] LABS: Basophils Absolute Auto 0.06 K/mm3 (0.00-0.10); Basophils Percent Auto 0.5 % (0.0-1.0); Eosinophils Absolute Auto 0.08 K/mm3 (0.02-0.50); Eosinophils Percent Auto 0.7 % (1.0-6.0); Hemoglobin 10.5 g/dL (12.0-15.0); Immature Granulocyte Absolute 0.05 K/mm3 (0.00-0.00); Immature Granulocyte Percent A 0.5 % (0.0-0.0); Lymphocytes Absolute Auto 2.52 K/mm3 (1.10-4.50); Lymphocytes Percent Auto 22.9 % (18.0-42.0); Mean Corpuscular Hemoglobin 25.2 pg (27.0-31.0); Mean Corpuscular Volume 84.1 fL (78.0-102.0); Mean Platelet Volume 10.9 fl (9.2-11.8); Monocytes Absolute Auto 1.04 K/mm3 (0.10-0.90); Monocytes Percent Auto 9.4 % (2.0-11.0); Neutrophils Absolute Auto 7.3 K/mm3 (1.7-7.2); Platelet Count Result 327 K/mm3 (150-420); Red Blood Count 4.16 M/mm3 (4.20-5.40); Red Cell Distribution Width 14.7 % (11.6-14.4)
[2019-12-21 12:44] LABS: Prothrombin Time 10.1 Seconds (9.64-11.0)
[2019-12-21 12:52] LABS: D Dimer 0.93 mg/L (0.19-0.50)
[2019-12-21] MEDS: ALBUTEROL SULFATE (*SP) INHALER 8 PUFF INHALATION ×2 (12:54→18:46)
[2019-12-21 13:02] LABS: BNP 497 pg/mL (0-100)
[2019-12-21 13:10] LABS: Creatine Kinase 23 U/L (26-192); Troponin I 0.04 ng/mL (0.00-0.056)
[2019-12-21 13:11] LABS: Anion Gap 6 mmol/L (8-16); Carbon Dioxide 28 mmol/L (21-32); Chloride 98 mmol/L (98-108); Potassium 3.1 mmol/L (3.5-5.1); Sodium 132 mmol/L (136-145)
[2019-12-21 13:12] LABS: Blood Urea Nitrogen 15 mg/dL (7-18); Calcium 7.8 mg/dL (8.5-10.1); Estimated CRCL calculation 69 ml/min; Estimated Glomerular Filt Rate > 60; Glucose 312 mg/dL (70-99); Osmolality Calculated 286 mOsm/kg (285-295)
[2019-12-21 13:13] LABS: Thyroid Stimulating Hormone Reflex 0.76 u/IU/mL (0.36-3.74)
--- NOTE | 2019-12-21 16:35 | PM.EVENT ---
Event Note Event Note Event Note: Echo today showed Left ventricular chamber dimension is normal. Left ventricular systolic function is normal, estimated at 55-60%. moderately increased left ventricular wall thickness. left ventricular diastolic function is grade I diastolic dysfunction. Small mobile echogenic mass noted attached to left coronary cusp suggestive of vegetation. mild aortic valve sclerosis. mitral valve has severely calcified leaflets and moderately Small mobile echogenic mass noted attached to posterior mitral valve leaflet suggestive of vegetation. mild mitral valve regurgitation. Right ventricular chamber dimension is normal. Right ventricular systolic function is normal. Left atrial chamber dimension is normal. Right atrial chamber dimension is normal. Aortic Valve Small mobile echogenic mass noted attached to left coronary cusp suggestive of vegetation. The aortic valve is trileaflet. There is mild aortic valve sclerosis. There is no aortic valve stenosis. There is no aortic valve regurgitation. There is no pulmonic regurgitation. Mitral Valve The mitral valve has severely calcified leaflets and moderately calcified annulus. Small mobile echogenic mass noted attached to posterior mitral valve leaflet suggestive of vegetation. There is no mitral valve stenosis. There is mild mitral valve regurgitation. Tricuspid Valve There is no tricuspid valve regurgitation. I have called and discussed these results with Dr. Pickett the ER physician at this time. I then called [facility] transfer line to update them regarding this finding. they are currently paging out a forming fixer to call us back and discuss this finding. I have advised them to call the charge nurses number at [phone] or the ER physician number at [phone].
--- NOTE | 2019-12-21 16:37 | PC.NURSE ---
pt heavy assist of 2 to get to commode, states she can't use her legs since having so many strokes, once up to commode pt unable to pee, back in bed, hob up, pt c/o not being able to eat or drink, repeats constantly that promised if i wasnt naughty and didnt throw up no more i could have something
[2019-12-21 17:30] LABS: Glucose Point of Care 324 (65-105)
--- NOTE | 2019-12-21 17:35 | PC.NURSE ---
pt complains that she is only getting liquids, no food, takes pill with no problems, iv running, hob up
--- NOTE | 2019-12-21 19:56 | PC.NURSE ---
pt is sleeping upon entering the room, sleeps through vital check, diet sofia mist refilled, rails up, 02 on, hob up, tele 87bpm
--- NOTE | 2019-12-21 20:18 | PC.NURSE ---
MD updated on current vitals signs and status. No new orders at this time.
[2019-12-21 21:15] LABS: Glucose Point of Care 386 (65-105)
[2019-12-21] MEDS: INSULIN GLARGINE (*BKC) 100 UNITS/ML 31 UNITS SUB-Q (21:20)
--- NOTE | 2019-12-21 22:10 | PC.NURSE ---
pt up to commode with assist x2, c/o weakness in legs, offered bed vargas, pt states no ill just pee the bed I won't use a bedpan , up with encouragement and cues, back in bed, unable to pee, pt requests more jello, chicken broth and juice
[2019-12-21 22:50] LABS: SARS-CoV-2 RNA PCR Negative
--- NOTE | 2019-12-21 23:22 | PM.EVENT ---
Event Note Event Note Event Note: I have examined the patient reviewed the chart. I discussed the patient's care with A Deion AGUSTIN and agree with her assessment and plan.
--- NOTE | 2019-12-21 23:24 | PC.NURSE ---
Contacted [facility] regarding transfer of pt and pt's COVID test coming back negative. They said they didnt have a bed available at this time but would call when one was available.
--- NOTE | 2019-12-21 23:59 | PC.NURSE ---
[facility] called stating that they have a bed available.
[2019-12-22] VITALS: BP 140/81; PULSE 87; PULSE 93; RESP 20; TEMP 36.5; O2SAT 90
--- NOTE | 2019-12-22 00:01 | PC.NURSE ---
Returned call to [facility] regarding bed on hold for pt. Information given to [employer] insurance healthcare consultant regarding pt.
--- NOTE | 2019-12-22 00:06 | PC.NURSE ---
Patient is disoriented to situation.
--- NOTE | 2019-12-22 00:11 | PC.NURSE ---
Notified Dr. Pickett of bed availability for pt.
--- NOTE | 2019-12-22 00:16 | PC.NURSE ---
Report called to Alan Norris RN at [facility]
[2019-12-22] MEDS: ACETAMINOPHEN 325 MG TABLET 650 MG PO (00:19)
--- NOTE | 2019-12-22 01:17 | PC.NURSE ---
[facility] ambulance notified of the need for a transfer.
--- NOTE | 2019-12-22 01:24 | PC.NURSE ---
[facility] ambulance service is unavailable for services. [facility] ambulance service notified and they said they could do the transfer.
--- NOTE | 2019-12-22 02:05 | PC.NURSE ---
Patient left for transfer to [facility] with [facility]. LR that was running was sent with the ambulance crew. Personal belongings were sent with the patient.
--- NOTE | 2019-12-22 02:10 | PC.NURSE ---
Pt transported to [facility] by [facility] ambulance service.
--- NOTE | 2020-01-07 02:46 | PM.DS ---
DS: Admitting Diagnosis Admitting Diagnosis Admitting Diagnosis: Shortness of Breath DS: Discharge Diagnosis Discharge Diagnosis (1) Vegetation of heart valve: Code(s): I33.0 - Acute and subacute infective endocarditis Status: Acute Assessment and Plan: Echocardiogram suggests small echogenic mass attached the left coronary cusp as well as echogenic masses attached to the posterior mitral valve leaflet. Patient also had a very mildly increased troponin as well as leukocytosis. Further evaluation, probably a EAMON, will be needed to further elucidate these issues. Patient is currently on ceftriaxone and azithromycin for presumed pneumonia. Patient had pending transfer for traumatic splenic disease and [facility] transfer line was called update them with the above findings. Cardiology [facility] was to call us back. (2) Injury, spleen, with hematoma: Code(s): S36.029A - Unspecified contusion of spleen, initial encounter Status: Acute Assessment and Plan: On admission his CT of the chest was done to evaluate shortness of breath and positive D-dimer. While the CTA was essentially negative for PE, it was noted that she had as hypodensity in the spleen. CT the abdomen and pelvis without contrast was performed and there was a 10 x 6 cm splenic mass thought to be a subacute hematoma. 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 Patient states she has many recent falls. A Deion AP and discussed the case with Dr. Deacon Lety Topete, trauma surgery at [facility] in [facility] who accepted her for transfer. (3) Fall: Code(s): W19.XXXA - Unspecified fall, initial encounter Status: Acute Assessment and Plan: Patient presented with hyponatremia, weakness, and likely some acute dehydration from her chronic vomiting and diarrhea. (4) Type 2 diabetes mellitus with diabetic polyneuropathy: Code(s): E11.42 - Type 2 diabetes mellitus with diabetic polyneuropathy Status: Acute Assessment and Plan: Patient has poorly controlled type 2 diabetes which is likely due to noncompliance with her medications. Patient states that she has been so weak that she is unable to get up and look for her medications. (5) Hyponatremia: Code(s): E87.1 - Hypo-osmolality and hyponatremia Status: Acute Assessment and Plan: Likely due to poor intake and diarrhea. Patient was given sodium chloride bolus plus lactated Ringer's during her stay. Her sodium decreased from 133 to 129 During the initial part of her stay but recovered partly prior to discharge. (6) Hypokalemia: Code(s): E87.6 - Hypokalemia Status: Acute Assessment and Plan: Likely due to poor intake. She received oral and IV potassium and during her stay her potassium remained relatively unchanged. (7) Shortness of breath: Code(s): R06.02 - Shortness of breath Status: Acute Assessment and Plan: patient require 1 L by nasal cannula to maintain sats from 95 to 97%. On the day of discharge her sats were 90% on room air. Hypoxia was initially thought to be related to her presumed pneumonia, however dehydration and presumed endocarditis pleural. Patient's habitus also suggests a history of CONNOR. DS: Summary Time Spent with Patient Time attestation: Total time spent providing and/or coordinating discharge services: 30 minutes. Exam Const: General: uncomfortable Other: Mild acute distress. HENMT: Mouth: Yes moist mucous membranes Resp: Effort & Inspection: normal respiratory effort Auscultation: clear to auscultation bilaterally, no rales, no rhonchi and no wheezes Cardio: Rate: regular rate Rhythm: regular rhythm Heart sounds: no gallops, no murmurs and no rubs GI: GI Palp: Yes Soft to palpation, Yes Tenderness to palpation present (GI) ( Mild left upper quadrant tenderness) and No Guarding due
== END 2019-12-22 02:04 | disposition short-term general hospital (02) ==
LOC: CHSED 17:52 → CHS2ND 12-21 01:00
PROVIDERS: Nurse Practitioner; Admitting Provider Family Medicine; Emergency Provider Family Medicine; Visit Provider Emergency Medicine
DX: I38 Endocarditis, valve unspecified (principal); S36.029A Unspecified contusion of spleen, initial encounter; N39.0 Urinary tract infection, site not specified; J18.9 Pneumonia, unspecified organism; E87.1 Hypo-osmolality and hyponatremia; E87.6 Hypokalemia; I10 Essential (primary) hypertension; E11.65 Type 2 diabetes mellitus with hyperglycemia; K52.9 Noninfective gastroenteritis and colitis, unspecified; R11.10 Vomiting, unspecified; R51 Headache; R29.6 Repeated falls; E66.9 Obesity, unspecified; F17.210 Nicotine dependence, cigarettes, uncomplicated; Z20.828 Contact with and (suspected) exposure to other viral communicable diseases; W19.XXXA Unspecified fall, initial encounter
CPT/HCPCS: 36415; 70450; 71045; 71275; 74176; 80048; 80053; 81001; 82550; 82553; 82948; 83036; 83605; 83690; 83735; 83880; 84443; 84484; 85025; 85380; 85610; 87040; 87086; 87088; 87635; 87804; 93005; 93306; 96360; 96361; 96365; 96367; 96372; 96375; 99284; 99285; A9270; C9803; G0378; G0379; J0696; J1650; J1815; J2060; J7040; J7060; J7120; Q9965; U0003

== ENCOUNTER 2020-03-09 17:35 | Emergency (ER) | payer OTHER, SELFPAY ==
--- NOTE | ~2020-03-09 | CT_ITS ---
EXAMINATION: CT abdomen pelvis wo con DATE: 03/09/2020 21:24 INDICATION: Abdominal pain. Perineal swelling. Wound. TECHNIQUE: Computed tomography (CT) of the abdomen and pelvis was performed without intravenous contr ast. The dose-length product was 1521.72 mGy-cm. Automated exposure control and iterative reconstruct ion technique were employed. COMPARISON: CT dated 12/21/2019 FINDINGS: There is lingular atelectasis left lower lobe. No significant pleural effusion. Small peric ardial effusion. Heart size normal. Calcified granuloma left lung base. There is a porcelain gallbladder. There is an ill-defined mass of the spleen, decreased in size brent red with prior examination allowing for differences of technique. There is hepatomegaly. The adrenal glands, pancreas and kidneys are unremarkable. Nonobstructive bowel gas pattern. There is inflammatio n and phlegmonous change in the posterior subcutaneous tissues overlying the sacrum extending to the perirectal region, suspicious for cellulitis. No definite abscess is identified, although evaluation limited without contrast. Small sclerotic lesion right ilium, likely benign bone island. IMPRESSION: 1. Inflammation and phlegmonous change in the posterior subcutaneous tissues overlying the sacrum ext ending to the perirectal region, suspicious for cellulitis. No definite abscess is identified, althou gh evaluation limited without contrast. 2: Decreased in size of ill-defined hypodense splenic mass, possibly maturing splenic infarct or reso lving infection. Reviewed, dictated and finalized at location A. IMPRESSION: 1. Inflammation and phlegmonous change in the posterior subcutaneous tissues ov erlying the sacrum extending to the perirectal region, suspicious for celluliti s. No definite abscess is identified, although evaluation limited without contr ast. 2: Decreased in size of ill-defined hypodense splenic mass, possibly maturing s plenic infarct or resolving infection.
--- NOTE | ~2020-03-09 | CT_ITS ---
EXAMINATION: CT pelvis wo con DATE: 03/09/2020 21:43 INDICATION: Perineal infection TECHNIQUE: Computed tomography (CT) of the pelvis was performed without intravenous contrast. The dos e-length product was 1031.18 mGy-cm. Automated exposure control and iterative reconstruction techniqu e were employed. COMPARISON: CT dated 03/09/2020 FINDINGS: There is inflammation and phlegmonous change in the gluteal soft tissues extending to the p erirectal region, compatible with cellulitis. No definitive abscess, although evaluation limited with out contrast. No significant bone or joint abnormality. Visualized aspects of the pelvis are unremark able. Bladder is unremarkable. IMPRESSION: 1. Inflammation/phlegmonous change posterior soft tissues extending from the sacral level into the gl uteal soft tissues to include the perirectal space. No definite fluid collection is identified, altho ugh abscess is not excluded without contrast. Reviewed, dictated and finalized at location A. IMPRESSION: 1. Inflammation/phlegmonous change posterior soft tissues extending from the sa cral level into the gluteal soft tissues to include the perirectal space. No de finite fluid collection is identified, although abscess is not excluded without contrast.
--- NOTE | ~2020-03-09 | XR_ITS ---
EXAMINATION: XR chest 1V portable 03/09/2020 21:28 INDICATION: Weakness. Transient alteration of awareness. PROCEDURE: AP view of the chest COMPARISON: Comparison to multiple prior studies sequentially, with oldest reviewed study dated 02/08. FINDINGS: The lungs are clear. The cardiomediastinal silhouette is within normal limits for techniqu e. There are no pleural effusions. There is no pneumothorax suspected. IMPRESSION: 1: NO ACUTE CARDIOPULMONARY DISEASE. Reviewed, dictated and finalized at location A.
[2020-03-09 18:20] VITALS: BP 124/69; PULSE 86; RESP 18; TEMP 35.8; O2SAT 98
--- NOTE | 2020-03-09 18:58 | PC.NURSE ---
patient presents to er with c/o my ass hurts . patients agatha area is red and has several open areas. patient just discharged from a rehab center and family states they need placement for patient.
--- NOTE | 2020-03-09 19:32 | ED.GENADULT ---
HPI - General Adult General Chief complaint: Unspecified Stated complaint: pain to perineum Time Seen by Provider: 03/09/20 18:58 History of Present Illness HPI narrative: Patient is a 49-year-old female who presents ER with swelling to her vaginal perineal region. Patient reports that she has been living at home for last 2-1/2 weeks since leaving a long-term rehab because her insurance will no longer pay. Because no one at her home will help care for her role her she has been urinating and sitting in her own excrement causing swelling and discomfort to her private region. Patient cannot give much history as to what her medical history is or why she was in a prison previously. Related Data Home Medications Medication Instructions Recorded Confirmed fluconazole 03/09/20 Allergies Allergy/AdvReac Type Severity Reaction Status Date / Time No Known Allergies Verified 10/24/09 16:24 Review of Systems Review of Systems: All systems reviewed & are unremarkable except as noted in HPI and below Constitutional: Constitutional: Denies chills, Denies fever(s) and Reports weakness ENT: Denies post nasal drip, Denies sinus pressure and Denies sore throat Cardiovascular: Cardiovascular: Denies chest pain, Denies edema and Denies dyspnea Gastrointestinal: Gastrointestinal: Denies abdominal pain, Denies diarrhea and Denies nausea Genitourinary: Comments: Perineal swelling and redness with tenderness. [facility] Past Medical History Medical History (Updated 03/10/20 @ 04:00 by Herbert Phillips MD) Gestational diabetes History of hypertension HTN (hypertension) with goal to be determined Obesity Social History Social History Smoking packs per day: 2 Smoking cigarettes per day: 40.0 Years smoked: 40 Smoking pack-years: 80.00 Smoking status: Current every day smoker Tobacco type: cigarettes Second hand tobacco smoke exposure: Yes Alcohol intake: former Substance use: never Gender identity (if verbalized by the patient): Female Spiritual care concerns: No Agree to blood products: Yes Exam Narrative: Exam Narrative: GENERAL: Chronically ill-appearing and unkempt, obese, and in no acute distress. HEAD: Normocephalic, atraumatic. EYES: PERRL and EOMI. ENT: Mucous membranes moist. CHEST: Clear to auscultation. No respiratory distress. HEART: Regular rate and rhythm. Normal peripheral pulses. ABDOMEN: Soft, nontender, nondistended. EXTREMITIES: Normal range of motion. No edema. SKIN: Warm, dry. Significant perineal redness and swelling with some healing 1 cm ulcerations. No area of discernible abscess. NEURO: Alert and oriented x3. Course Reevaluation(s) Reevaluation #1: Imipenem/elastin and vancomycin ordered for perineal infection. Discussed case with general surgery who feels patient should be transferred to a tertiary care center given significant leukocytosis and hyperglycemia that puts her at risk for a necrotizing infection of the perineal region. Feels this hospital is not capable of performing recurrent debridements that would be necessary and patient be better served with higher level of care. Will discuss with [facility] as thoughts were patient went for evaluation of cardiac vegetations a couple months ago. Date: 03/09/20 Time: 23:26 Reevaluation #2: Patient has been resting comfortably. BP has been stable. She is on insulin drip. Patient has received her room at [facility] where she is being admitted to the MICU under the care of Dr. Dang. Date: 03/10/20 Time: 03:58 Vital Signs Vital signs: Vital Signs Temperature 96.4 F L 03/09/20 18:20 Pulse Rate 86 03/09/20 18:20 Respiratory Rate 18 03/09/20 18:20 Blood Pressure 124/69 03/09/20 18:20 Pulse Oximetry 98 03/09/20 18:20 Temperature 96.4 F L 03/09/20 18:20 Pulse Rate 79 03/10/20 02:30 Respiratory Rate 18 03/10/20 02:30 Blood Pressure 149/62 H 10/3
[2020-03-09 20:35] LABS: Basophils Absolute Auto 0.2 K/mm3 (0.0-0.1); Basophils Percent Auto 0.6 % (0.2-1.2); Eosinophils Percent Auto 0.1 % (0-4.4); Hematocrit 35.5 % (37.0-47.0); Hemoglobin 10.9 g/dL (12.0-15.0); Immature Granulocyte Absolute 1.43 K/mm3 (0.00-0.031); Immature Granulocyte Percent A 4.4 % (0-0.5); Lymphocytes Absolute Auto 0.88 K/mm3 (0.9-3.2); Lymphocytes Percent Auto 2.7 % (18.3-44.2); Mean Corpuscular HGB Conc 30.7 g/dl (32-36); Mean Corpuscular Hemoglobin 23.3 pg (26-34); Mean Platelet Volume 10.6 fl (7.4-10.4); Monocytes Absolute Auto 1.5 K/mm3 (0.1-0.6); Monocytes Percent Auto 4.7 % (2.6-8.5); Neutrophils Absolute Auto 28.3 K/mm3 (1.3-6.7); Neutrophils Percent Auto 87.5 % (45.5-73.1); Nucleated Red Blood Cells Perc 0.1 % (0.0-0.2); Platelet Count Result 425 k/mm3 (150-375); Red Blood Count 4.67 M/mm3 (4.2-5.4); Red Cell Distribution Width 19.3 % (11.5-14.5); White Blood Count 32.4 K/mm3 (4.5-10.0)
[2020-03-09 20:54] LABS: Lactic Acid Reflex 1.7 mmol/L (0.7-2.1)
[2020-03-09 21:01] LABS: Anion Gap 10 mmol/L (8-16); Blood Urea Nitrogen 47 mg/dL (7-17); Carbon Dioxide 19 mmol/L (22-30); Chloride 95 mmol/L (98-107); Estimated Glomerular Filt Rate 30; Glucose 755 mg/dL (65-105); Potassium 3.3 mmol/L (3.4-5.0); Sodium 124 mmol/L (137-145)
[2020-03-09] MEDS: SODIUM CHLORIDE 0.9% IV 1,000 ML 999 ML IV CONT ×2 (21:30)
[2020-03-09] MEDS: INSULIN HUMAN REGULAR (*BKC) 100 UNITS/ML 10 UNITS IV PUSH (21:30)
[2020-03-09 21:59] VITALS: BP 122/70; PULSE 68; RESP 16; O2SAT 99
--- NOTE | 2020-03-09 22:57 | PC.NURSE ---
patient refusing finger stick and straight cath
[2020-03-09 23:06] LABS: Glucose Point of Care > 500 (65-105)
[2020-03-10 00:15] VITALS: BP 126/58; PULSE 75; RESP 18; O2SAT 99
--- NOTE | 2020-03-10 00:15 | PC.NURSE ---
Patient refusing to leave monitoring tech leads, BP cuff or SpO2 equipment on. Patient yelling and crying wants to be moved- Im freezing . Patient repositioned onto her right side-additional blankets added, given paper towels to spit in . Call albarado in reach
[2020-03-10] MEDS: INSULIN HUMAN REGULAR (*BKC) 100 UNITS in SODIUM CHLORIDE 0.9% IV 99 ML 8.8 UNITS IV CONT (01:40)
[2020-03-10] MEDS: SODIUM CHLORIDE 0.9% IV 1,000 ML 999 ML IV CONT (01:42)
[2020-03-10 02:30] VITALS: BP 149/62; PULSE 79; RESP 18; O2SAT 100
--- NOTE | 2020-03-10 02:30 | PC.NURSE ---
Patient continues to refuse continous monitoring---spot VS allowed by her--patient repositioned onto her left side now, water at her bedside refused tap water only bottled water , given new paper towels to spit in. Still refusing urinary straight cath or voiding per bedpan
[2020-03-10 02:37] LABS: Glucose Point of Care > 500 (65-105)
[2020-03-10 02:38] LABS: Glucose Point of Care > 500 (65-105)
--- NOTE | 2020-03-10 03:32 | PC.NURSE ---
fred called about transport, eta [id number]
--- NOTE | 2020-03-10 03:33 | PC.NURSE ---
Report given to Temitope RAMOS at [facility] for patient going to room 8424-A Transport called
[2020-03-10 03:52] LABS: Glucose Point of Care 438 (65-105)
--- NOTE | 2020-03-10 04:29 | PC.NURSE ---
Addendum entered by Olena Ron RN 03/10/20 04:29: from [facility] Original Note: updated eta [phone]
[2020-03-10 05:07] LABS: Glucose Point of Care 388 (65-105)
--- NOTE | 2020-03-10 05:27 | PC.NURSE ---
Transport here-per [facility] policy they are not able to take an Insulin drip without a nurse during transport. Dr Phillips aware that 0455 BGL was 388. He gave order to pause the insulin during transport -patient is stable and not in DKA. Update called to Temitope at [facility]
[2020-03-10 05:36] VITALS: BP 130/61; PULSE 77; RESP 18; O2SAT 99
== END 2020-03-10 05:38 | disposition short-term general hospital (02) ==
PROVIDERS: Emergency Provider Emergency Medicine; PCP Family Medicine
DX: L03.315 Cellulitis of perineum (principal); N17.9 Acute kidney failure, unspecified; R73.9 Hyperglycemia, unspecified; I10 Essential (primary) hypertension; E66.9 Obesity, unspecified; F17.210 Nicotine dependence, cigarettes, uncomplicated
CPT/HCPCS: 36415; 71045; 72192; 74176; 80048; 83605; 85025; 87040; 87147; 87186; 96361; 96365; 96366; 96367; 96375; 99285; J0743; J1815; J3370; J7030

== ENCOUNTER 2021-08-03 00:40 | Inpatient (IN) | payer OTHER, SELFPAY ==
[2021-08-03] VITALS (25 sets, daily range): BP systolic 132–178; BP diastolic 74–98; PULSE 66–166; RESP 10–24; TEMP 36.2–36.7; O2SAT 88–100
--- NOTE | 2021-08-03 | ECHO_ITS ---
Patient Info Name: Josy Perez Age: 51 years : 1970 Gender: Female Ht: 65 in Wt: 249 lbs BSA: 2.33 m2 HR: 81 bpm Technical Quality: Poor Exam Date: 08/03/2021 9:29 AM Exam Location: [facility] Patient Status: Inpatient Admit Date: 08/03/2021 Staff Ordering Physician: Edith Jennings DO Area Field Worker: Maryanne Bautista RDCS Attending Provider: Melvin Rao MD Referring Physician: Michaela SINGLETON; Exam Type: CA echo dop color flow w con Study Info Indications - Acute Respiratory Failure Complete two-dimensional, color flow and Doppler transthoracic echocardiogram is performed with contrast to opacify the left ventricle and to improve the deliniation of the left ventricle endocardial borders. Contrast/Agitated Saline Contrast/Ag. Saline: Definity Amount: 4.00 ml Reason for Poor Study: patient body habitus History/Risk Factors Hypertension: Yes Diabetic Therapy: Insulin Obesity: Yes Diabetes Mellitus: Yes Tobacco Use: Current - Every Day If Any Current, Tobacco Type: Cigarettes If Current - Every Day \T\ Cigarettes, Amount: Heavy Tobacco Use (>=10/day) Frailty Scale (CSHA): 5: Mildly Frail Summary 1. Left ventricular chamber dimension is mildly enlarged. 2. Definity contrast administered improved wall motion interpretation. 3. Left ventricular systolic function is normal, estimated at 60-65%. 4. There is moderately increased left ventricular wall thickness. 5. The left ventricular diastolic function is abnormal. 6. E/e' 25 is significantly elevated. 7. Left atrial chamber dimension is moderately enlarged. 8. There is mild aortic valve sclerosis. 9. Small echogenic mass attached to left coronary cusp measuring 0.28cm x 0.93 cm suggestive of vegetation and infective endocarditis. 10. There is mild mitral valve stenosis based on mean gradient of 8 mmHg, MVA of 1.8 by PHT. 11. No pulmonary hypertension, estimated pulmonary arterial systolic pressure is 38 mmHg. Recommendations * Continue medical therapy for diabetes. * Smoking cessation counseling is recommended for this patient. Left Ventricle E/e' 25 is significantly elevated. Definity contrast administered improved wall motion interpretation. Left ventricular chamber dimension is mildly enlarged. Left ventricular systolic function is normal, estimated at 60-65%. There is moderately increased left ventricular wall thickness. The left ventricular diastolic function is abnormal. Right Ventricle Right ventricular systolic function is normal and with normal TAPSE 2.3 cm. Right ventricular chamber dimension is normal. Left Atria Left atrial chamber dimension is moderately enlarged. Right Atria Right atrial chamber dimension is normal. Aortic Valve Small echogenic mass attached to left coronary cusp measuring 0.28cm x 0.93 cm suggestive of vegetation and infective endocarditis. The aortic valve is trileaflet. There is mild aortic valve sclerosis. There is no aortic valve stenosis. There is no aortic valve regurgitation. Pulmonic Valve There is no pulmonic regurgitation. Mitral Valve There is mild mitral valve stenosis based on mean gradient of 8 mmHg, MVA of 1.8 by PHT. The mitral valve has not well visualized. There is no mitral valve regurgitation. Tricuspid Valve The tricuspid valve leaflets are not well visualized. There is no tricuspid valve regurgitation. No pulmonary hypertension, estimated p
--- NOTE | ~2021-08-03 | CT_ITS ---
EXAMINATION: CT diagnostic chest wo con EXAM DATE: 08/03/2021 17:07 INDICATION: Shortness of breath. TECHNIQUE: Spiral CT of the chest without contrast. Axial, coronal and sagittal images of the chest were reviewed. Coronal maximum intensity pixel images of chest reviewed. The dose-length product ( DLP) for this examination was 1018.07 mGy-cm. The exposure was tailored according to patient size (a uto mA exposure control), and iterative reconstruction (ASIR) was used as additional dose reduction t echnique. Comparison is made to prior examination from 12/20/2019. FINDINGS: Development of multi segmental bilateral airspace disease with volume loss, appearance is most consistent with atelectasis. Difficult to exclude pneumonia. Small to moderate right, small lef t pleural effusions. Tracheobronchial tree is patent. There is no mediastinal, hilar or axillary l ymphadenopathy. There is no pneumothorax. Cardiomegaly. Small pericardial effusion. There is mil d coronary arterial calcification, arterial sclerosis. Upper abdomen is unremarkable. There is mil d to moderate thoracic spondylosis without osteoblastic or osteolytic lesions identified. IMPRESSION: 1. Cardiomegaly, small to moderate right, small left pleural effusions. 2. Multisegmental bilateral airspace disease with volume loss most consistent with atelectasis. Supe rimposed pneumonia not entirely excludable. Reviewed, dictated and finalized at location G. IMPRESSION: 1. Cardiomegaly, small to moderate right, small left pleural effusions. 2. Multisegmental bilateral airspace disease with volume loss most consistent with atelectasis. Superimposed pneumonia not entirely excludable.
--- NOTE | ~2021-08-03 | US_ITS ---
EXAMINATION: US venous doppler [facility] DATE: 08/05/2021 16:13 INDICATION: Lower limb swelling. TECHNIQUE: Grayscale ultrasound images without and with compression and Doppler ultrasound images of the bilateral lower extremity veins were obtained. COMPARISON: None. FINDINGS: The visualized portions of right common femoral vein, profunda (deep) femoral vein, femoral vein, pop liteal vein, peroneal veins, posterior tibial veins, and greater saphenous vein outflow are patent. The visualized portions of left common femoral vein, profunda femoral vein, femoral vein, popliteal v ein, peroneal veins, posterior tibial veins, and greater saphenous vein outflow are patent. IMPRESSION: 1. No deep venous thrombosis. Reviewed, dictated and finalized at location A.
--- NOTE | ~2021-08-03 | XR_ITS ---
EXAMINATION: XR chest 1V portable DATE: 08/04/2021 05:28 INDICATION: Shortness of breath TECHNIQUE: frontal view of the chest was obtained. COMPARISON: Chest radiograph and CT dated 07/2621 FINDINGS: Patient is rotated towards the left. Persistent opacities in the bilateral mid and lower lung zones c onsistent with atelectasis and/or pneumonia. There are also small bilateral pleural effusions trackin g along the fissures. No pneumothorax. Cardiomegaly. IMPRESSION: 1. Opacities in the bilateral mid and lower lung zones which could represent atelectasis and/or pneum onia. 2. Small bilateral pleural effusions. 3. Cardiomegaly. Reviewed, dictated and finalized at location A. IMPRESSION: 1. Opacities in the bilateral mid and lower lung zones which could represent at electasis and/or pneumonia. 2. Small bilateral pleural effusions. 3. Cardiomegaly.
--- NOTE | ~2021-08-03 | NM_ITS ---
EXAMINATION: NM pulmonary perfusion DATE: 08/05/2021 13:01 INDICATION: Shortness of breath. TECHNIQUE: 5.5 mCi Tc-99m MAA was administered intravenously for perfusion images. Scintigraphic eileen ges of the chest were obtained. COMPARISON: Chest single view 08/04/2021, chest CT 08/03/2021 FINDINGS: Perfusion images show moderate sized and large matched defects in left lower lobe. There are small ma tched defects in the upper lobes and right lower lobe. IMPRESSION: 1. Nondiagnostic (intermediate probability for pulmonary embolism). Reviewed, dictated and finalized at location A.
--- NOTE | ~2021-08-03 | US_ITS ---
EXAMINATION: US venous doppler UE DATE: 08/05/2021 16:14 INDICATION: Lower limb swelling. Shortness of breath. TECHNIQUE: Grayscale ultrasound images without and with compression and Doppler ultrasound images of the bilateral upper extremity veins were obtained. COMPARISON: None. FINDINGS: The visualized portions of the right internal jugular vein, subclavian vein, axillary vein, brachial veins, basilic vein, cephalic vein, radial vein, and ulnar vein are patent. The visualized portions of the left internal jugular vein, subclavian vein, axillary vein, brachial v eins, basilic vein, cephalic vein, radial vein, and ulnar vein are patent. IMPRESSION: 1. No deep venous thrombosis. Reviewed, dictated and finalized at location A.
--- NOTE | ~2021-08-03 | XR_ITS ---
EXAMINATION: XR chest 1V portable DATE: 08/03/2021 01:32 INDICATION: Shortness of breath TECHNIQUE: frontal view of the chest was obtained. COMPARISON: Chest radiograph dated 03/09/2020 FINDINGS: Gradient of basilar predominant hazy airspace opacity throughout the left hemithorax and in the right lower lung zone with blunting of the costophrenic angles consistent with small bilateral pleural eff usions and associated atelectasis or pneumonia. No pneumothorax. Cardiomegaly. IMPRESSION: 1. Small right and vjoxj-ds-lwrjguxt left posterior layering pleural effusions with associated atelec tasis and/or pneumonia. 2. Cardiomegaly. Reviewed, dictated and finalized at location A. IMPRESSION: 1. Small right and wcdte-gu-ufmnnsdp left posterior layering pleural effusions with associated atelectasis and/or pneumonia. 2. Cardiomegaly.
--- NOTE | 2021-08-03 00:50 | ECG_ITS ---
Measurements Intervals [place] Rate: 69 P: 80 UT: 183 QRS: -64 QRSD: 97 T: 32 QT: 416 QTc: 446 Interpretive Statements SINUS RHYTHM MARKED LEFT AXIS DEVIATION [QRS AXIS < -30] LOW QRS VOLTAGE IN PRECORDIAL LEADS [QRS DEFLECTION < 1.0 mV IN CHEST LEADS] POSSIBLE ANTERIOR MYOCARDIAL INFARCTION , OLD COMPARED TO ECG 12/21/2019 05:07:55 NO DIFFERENCE Electronically Signed On 08-03-2021 8:39:37 CDT by Sánchez Taylor M.D.
--- NOTE | 2021-08-03 00:55 | ED.SOB ---
HPI - SOB/Dyspnea General Chief Complaint: Shortness of Breath/Dyspnea Stated Complaint: SOB, LOW SAT Time Seen by Provider: 08/03/21 00:48 Source: patient and EMS Mode of arrival: EMS Limitations: no limitations History of Present Illness HPI Narrative: Patient is a 51-year-old female complain of shortness of breath that started tonight. Patient oxygen saturation according to EMS was in the low 80s when they arrived at the half-way. Patient was placed on 6 L which eventually brought it up to 88 to 90%. Patient denies any chest pain, cough, chest congestion, abdominal pain, nausea, vomiting, diaphoresis, fever or chills. Related Data Home Medications Medication Instructions Recorded Confirmed acetaminophen 650 mg PO Q4-5H PRN 08/03/21 08/03/21 Allergies Allergy/AdvReac Type Severity Reaction Status Date / Time citalopram AdvReac Unknown Verified 08/03/21 01:53 varenicline [From Chantix] AdvReac Unknown Verified 08/03/21 01:53 Review of Systems Review of Systems: All systems reviewed & are unremarkable except as noted in HPI and below Constitutional: Constitutional: Denies body ache(s), Denies chills, Denies excessive sweating, Denies fatigue, Denies fever(s), Denies headache(s), Denies lethargy, Denies malaise, Denies weakness and Denies weight loss Eyes: Eyes: Denies blurry vision, Denies change in vision and Denies loss of vision ENT: Denies dizziness, Denies ear discharge, Denies headache(s), Denies lip swelling, Denies epistaxis, Denies nasal congestion, Denies neck pain, Denies throat swelling and Denies tongue swelling Cardiovascular: Cardiovascular: Denies chest pain, Denies chest pain at rest, Denies chest pain with activity, Denies diaphoresis, Denies rapid heart rate, Denies edema, Denies irregular heart rhythm, Denies lightheadedness and Denies palpitations Respiratory: Respiratory: Denies chest congestion, Denies cough and Denies hemoptysis Gastrointestinal: Gastrointestinal: Denies abdominal pain, Denies melena, Denies hematochezia, Denies diarrhea, Denies nausea, Denies vomiting and Denies hematemesis Musculoskeletal: Musculoskeletal: Denies abnormal gait, Denies deformity, Denies joint swelling, Denies limited range of motion, Denies neck pain and Denies numbness Neurologic: Denies Abnormal speech present, Denies abnormal gait, Denies confusion, Denies dizziness, Denies headache(s), Denies focal weakness, Denies loss of vision, Denies numbness, Denies Other visual disturbances, Denies Sensory deficit (Neuro) and Denies weakness Psychiatric: Psychiatric: Denies confusion, Denies depression, Denies auditory hallucinations, Denies homicidal ideation and Denies suicidal ideation Endocrine: Endocrine: Denies cold intolerance, Denies excessive sweating, Denies fatigue, Denies heat intolerance and Denies palpitations Hematologic/Lymphatic: Hematologic/Lymphatic: Denies easy bleeding and Denies easy bruising Allergic/Immunologic: Allergic/Immunologic: Denies lip swelling, Denies throat swelling and Denies tongue swelling PMFSH Past Medical History Medical History (Updated 08/03/21 @ 02:05 by Don Ellsworth MD) Gestational diabetes History of hypertension HTN (hypertension) with goal to be determined Obesity Social History Social History Smoking packs per day: 2 Smoking cigarettes per day: 40.0 Years smoked: 40 Smoking pack-years: 80.00 Smoking status: Current every day smoker Tobacco type: cigarettes Second hand tobacco smoke exposure: Yes Alcohol intake: former Substance use: never Gender identity (if verbalized by the patient): Female Sexual Orientation (if Verbalized by the Patient): Straight or Heterosexual Spiritual care concerns: No Agree to blood products: Yes Exam Const: General: cooperative, comfortable, well developed, alert and awake; No confusion Nutritional Appearance: obese Orientation/conscious
[2021-08-03] MEDS: ALBUTEROL SULFATE NEB 2.5 MG/0.5 ML INH 5 MG INHALATION ×4 (01:00→20:55)
[2021-08-03] MEDS: IPRATROPIUM BR 0.02% INH SOLN 0.5 MG/2.5 ML VIAL INHALATION ×4 (01:00→20:55)
[2021-08-03 01:02] LABS: Basophils Absolute Auto 0.2 K/mm3 (0.0-0.1); Basophils Percent Auto 1.4 % (0.2-1.2); Eosinophils Absolute Auto 0.2 K/mm3 (0-0.3); Eosinophils Percent Auto 1.8 % (0-4.4); Hematocrit 32.5 % (37.0-47.0); Hemoglobin 9.2 g/dL (12.0-15.0); Immature Granulocyte Absolute 0.17 K/mm3 (0.00-0.031); Immature Granulocyte Percent A 1.5 % (0-0.5); Lymphocytes Absolute Auto 1.82 K/mm3 (0.9-3.2); Mean Corpuscular HGB Conc 28.3 g/dl (32-36); Mean Corpuscular Hemoglobin 21.9 pg (26-34); Mean Corpuscular Volume 77.2 fl (80-100); Mean Platelet Volume 9.3 fl (7.4-10.4); Monocytes Absolute Auto 1.4 K/mm3 (0.1-0.6); Monocytes Percent Auto 12.1 % (2.6-8.5); Neutrophils Absolute Auto 7.6 K/mm3 (1.3-6.7); Neutrophils Percent Auto 67.2 % (45.5-73.1); Nucleated Red Blood Cells Absolute Auto 0.1 K/mm3 (0.0-0.012); Nucleated Red Blood Cells Perc 1.1 % (0.0-0.2); Platelet Count Result 376 k/mm3 (150-375); Red Blood Count 4.21 M/mm3 (4.2-5.4); Red Cell Distribution Width 22.7 % (11.5-14.5); White Blood Count 11.4 K/mm3 (4.5-10.0)
[2021-08-03 01:14] LABS: Anion Gap 9 mmol/L (8-16); Blood Urea Nitrogen 38 mg/dL (7-17); Calcium 8.2 mg/dL (8.4-10.2); Carbon Dioxide 22 mmol/L (22-30); Chloride 107 mmol/L (98-107); Estimated Glomerular Filt Rate 31; Glucose 376 mg/dL (65-110); INR 1.1; Potassium 4.7 mmol/L (3.4-5.0); Prothrombin Time 13.3 Seconds (11.1-14.7); Sodium 138 mmol/L (137-145)
[2021-08-03 01:15] LABS: Partial Thromboplastin Time 29.8 SECONDS (22.3-36.8)
[2021-08-03 01:16] LABS: Alveolar/Arterial O2 Gradient 213.1 mmHg; Base Excess ABG -8.2 mEq/l (+/-2.0); Fractional Inspired Oxygen 44 %; HCO3 ABG 19.2 mEq/l (22.0-26.0); Oxygen Content ABG 11.2 %vol (16.0-22.0); PCO2 ABG 47.6 mmHg (35.0-45.0); PO2 FiO2 Ratio Arterial Blood 1.05 %; Total Hemoglobin 10.3 g/dL (12.0-18.0)
[2021-08-03 01:17] LABS: D Dimer 1.72 ug/mL (<0.48)
[2021-08-03 01:18] LABS: PO2 ABG 46.4 mmHg (80.0-100.0); pH ABG 7.223 (7.350-7.450)
[2021-08-03 01:19] LABS: Device NASAL CANNULA; Modified Allen's Test Pass; Oxygen Saturation ABG 73.8 % (95.0-100.0); Oxyhemoglobin 77.4 % THb (90.0-100.0); Site Drawn RIGHT RADIAL
[2021-08-03 01:23] LABS: Anisocytosis 1+ (NORMAL); Platelet Estimate Adequate (Adequate)
[2021-08-03 01:29] LABS: NT Pro B Type Natriuretic Pept 5470 pg/mL (5-100); Troponin I 0.062 ng/mL (0.000-0.034)
--- NOTE | 2021-08-03 01:42 | PC.NURSE ---
upon entry into room to take patient to CT. Patient adamantly refusing ct due to contrast. risks of not having CT explained. pt states she does not want CT dye.
[2021-08-03] MEDS: methylPREDNISolone SOD SUCC 125 MG VIAL IV PUSH (01:45)
--- NOTE | 2021-08-03 02:00 | PC.NURSE ---
Pt refused ABG blood draw and troponin 3 HR. pt states to get all of it in one stick education provided to patient about purpose of blood draw. pt refuses blood draw at this time. aware.
--- NOTE | 2021-08-03 03:19 | PC.NURSE ---
When tried to get blood, pt refused all tests
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
[2021-08-03 03:27] LABS: Glucose Point of Care 342 mg/dl (65-105)
[2021-08-03] MEDS: INSULIN ASPART (*BKC) 100 UNITS/ML 8 UNITS SUB-Q (03:54)
[2021-08-03] MEDS: ENOXAPARIN 30 MG/0.3 ML SYRINGE 15 MG SUB-Q (03:56)
[2021-08-03] MEDS: ASPIRIN 325 MG TABLET PO (03:57)
[2021-08-03] MEDS: FUROSEMIDE INJ 40 MG/4 ML VIAL IV PUSH ×2 (03:57→10:07)
[2021-08-03] MEDS: ENOXAPARIN 100 MG/ML SYRINGE SUB-Q (03:57)
[2021-08-03 04:40] LABS: SARS-CoV-2 RNA PCR Negative
[2021-08-03 04:52] LABS: Alanine Aminotransferase 17 U/L (4-35); Albumin Level 3.6 g/dL (3.5-5.1); Alkaline Phosphatase 124 U/L (38-126); Aspartate Amino Transferase 29 U/L (14-36); Bilirubin,Total 0.2 mg/dL (0.2-1.3)
--- NOTE | 2021-08-03 05:07 | ADMGEN ---
This patient, Josy Perez, was admitted to Intensive Care Unit-5 on 08/03/21 at 0430. Patient/family oriented to hospital policies and general routines including ID bracelet, bed and alarms, visiting hours, pain management, procedures, bathroom and other care routines, personal items, smoking policy, room service/diet, and visiting hours. Information on how to activate the Rapid Response Team has been discussed. Patient/Family are encouraged to report perceived risks to care and to ask questions if they do not understand what they are told or what they should do.
--- NOTE | 2021-08-03 05:42 | PC.NURSE ---
Pt refused russ catheter. Dr. Jennings notified. Specimen obtained by straight cath.
[2021-08-03] MEDS: IPRATROPIUM BR 0.02% INH SOLN 0.5 MG/2.5 ML VIAL 1 MG INHALATION (06:10)
[2021-08-03] MEDS: ALBUTEROL SULFATE NEB 2.5 MG/0.5 ML INH 10 MG INHALATION (06:10)
[2021-08-03 06:16] LABS: Alveolar/Arterial O2 Gradient 174.9 mmHg; Base Excess ABG -3.6 mEq/l (+/-2.0); Carboxyhemoglobin 2.2 % THb (0-2.0); Fractional Inspired Oxygen 55 %; HCO3 ABG 19.2 mEq/l (22.0-26.0); Methemoglobin ABG 0.3 %THb (0-1.5); Oxygen Content ABG 12.9 %vol (16.0-22.0); Oxygen Saturation ABG 99.4 % (95.0-100.0); Oxyhemoglobin 96.3 % THb (90.0-100.0); PCO2 ABG 26.9 mmHg (35.0-45.0); PO2 ABG 187.3 mmHg (80.0-100.0); PO2 FiO2 Ratio Arterial Blood 3.41 %; Reduced Hemoglobin 1.2 %THb (0-5.0); Total Hemoglobin 9.2 g/dL (12.0-18.0); pH ABG 7.471 (7.350-7.450)
[2021-08-03 06:17] LABS: Device HIGH FLOW NASAL CANN; Modified Allen's Test Pass; Site Drawn LEFT RADIAL
[2021-08-03 06:27] LABS: Add Urine Microscopic? YES; Appearance Urine Cloudy (Clear); Bacteria Urine 3+ /hpf; Bilirubin Urine Negative (Negative); Blood Urine Negative (Negative); Color Urine Yellow (Yellow); Glucose Urine UA 1+ mg/dL (Negative); Ketones Urine Negative (Negative); Leukocyte Esterase Ur Negative LEU/UL (Negative); Nitrate Urine Negative (Negative); Protein Urine 2+ mg/dL (Negative); RBC Urine 0-2 /hpf (0-2); Specific Grav Ur 1.008 (1.001-1.035); Squamous Epithelial Cell Urine Rare /hpf (Few); Urobilinogen Urine Negative mg/dL (<2.0)
[2021-08-03 06:47] LABS: Troponin I < 0.012 ng/mL (0.000-0.034)
[2021-08-03] MEDS: methylPREDNISolone SOD SUCC 125 MG VIAL 60 MG IV PUSH ×3 (08:21→22:17)
[2021-08-03] MEDS: NICOTINE (*PBKC) 14 MG PATCH 1 PATCH TRANSDERM (08:26)
[2021-08-03] MEDS: COLLAGENASE OINT 30 GM TUBE 1 APPLIC TOPICAL (08:28)
[2021-08-03 08:47] LABS: Hemoglobin A1C 8.9 % (<5.7)
[2021-08-03 08:48] LABS: Glucose Point of Care 399 mg/dl (65-105)
--- NOTE | 2021-08-03 08:50 | PCRCNOTE ---
08:00 tx omitted due to recent cont. neb given at 07:10, nurse notify, will give 14:00 tx earlier
[2021-08-03] MEDS: INSULIN ASPART (*BKC) 100 UNITS/ML SUB-Q ×2 (08:58→12:38)
[2021-08-03] MEDS: INSULIN ASPART (*BKC) 100 UNITS/ML 6 UNITS SUB-Q ×3 (08:59→17:31)
[2021-08-03] MEDS: PERFLUTREN LIPID MICROSPHERES 1.5 ML VIAL DILUTED TO 10 ML TOTAL VOLUME IV PUSH (09:29)
--- NOTE | 2021-08-03 09:29 | PC.NURSE ---
Patient refusing to answer orientation questions at 0800. continues to roll over and pull blankets over her head during physical assessment. Education and reassurance provided. No change in behavior.
[2021-08-03 09:37] LABS: Troponin I < 0.012 ng/mL (0.000-0.034)
[2021-08-03] MEDS: cloNIDine 0.2 MG/24 HR PATCH 1 PATCH TRANSDERM (10:07)
--- NOTE | 2021-08-03 10:46 | PC.NURSE ---
Patient refusing morning medications at 0800. Education provided and multiple attempts made. Patient continues to refuse medication. Will wait a bit and re-offer when breakfast arrives. Nurse to monitor.
[2021-08-03] MEDS: ASPIRIN 81 MG CHEWABLE TABLET PO (11:56)
[2021-08-03] MEDS: carvediloL 25 MG TABLET PO ×2 (11:57→17:33)
[2021-08-03] MEDS: GABAPENTIN 300 MG CAPSULE PO ×2 (11:57→17:33)
[2021-08-03] MEDS: ASCORBIC ACID 500 MG TABLET PO ×2 (11:57→17:32)
[2021-08-03] MEDS: ESCITALOPRAM OXALATE 10 MG TABLET PO (11:57)
[2021-08-03] MEDS: CHOLECALCIFEROL 1,000 UNITS TABLET 2000 UNITS PO (11:57)
[2021-08-03] MEDS: OLANZapine 5 MG TABLET PO (11:58)
[2021-08-03] MEDS: hydrALAZINE HCL 50 MG TABLET PO ×2 (11:58→17:33)
[2021-08-03] MEDS: amLODIPine BESYLATE 5 MG TABLET 10 MG PO (11:58)
[2021-08-03] MEDS: MULTIVITAMINS /C LUTEIN (CENTRUM SILVER) TABLET *BKC 1 TAB PO (11:58)
[2021-08-03] MEDS: QUEtiapine FUMARATE XR 50 MG TAB.ER.24H 150 MG PO (11:59)
--- NOTE | 2021-08-03 12:03 | PC.NURSE ---
Medications re-offered at 0900. Patient continues to ignore nurse and pull bed sheets over head. Education provided. No change in patient behavior. MD updated and aware.
--- NOTE | 2021-08-03 12:04 | PC.NURSE ---
Patient agreeable to taking morning medications now. Oral medications given at 1157.
[2021-08-03 13:14] LABS: Glucose Point of Care 372 mg/dl (65-105)
--- NOTE | 2021-08-03 15:11 | PC.NURSE ---
Patient assigned a bed in IMU department. Patient to be transferred to IMU room 202.
--- NOTE | 2021-08-03 15:45 | PM.IMPN ---
Progress Note: A&P Assessment and Plan (1) Acute respiratory failure with hypoxia and hypercapnia: Code(s): J96.01 - Acute respiratory failure with hypoxia; J96.02 - Acute respiratory failure with hypercapnia Status: Acute (2) Tobacco dependence: Code(s): F17.200 - Nicotine dependence, unspecified, uncomplicated Status: Chronic (3) Hyperglycemia due to type 2 diabetes mellitus: Qualifiers: Diabetes mellitus halfway insulin use: with halfway use Qualified Code(s): E11.65 - Type 2 diabetes mellitus with hyperglycemia; Z79.4 - nursing home (current) use of insulin Code(s): E11.65 - Type 2 diabetes mellitus with hyperglycemia Status: Acute (4) D-dimer, elevated: Code(s): R79.89 - Other specified abnormal findings of blood chemistry Status: Acute Additional Plan # acute hypoxic hypercapnic respiratory failure on to have oxygen saturation of 78% likely acute COPD exacerbation. Needed BiPAP due to tachypnea and accessory muscle use. However diffuse BiPAP and repeat ABG with improvement. Possible congestive heart failure particularly diastolic. Bilateral lower extremity edema with elevated BNP more than 5000. Started on diuresis. Will increase to 40 mg in the morning and 20 in the evening. Monitor renal function and adjust as needed. Did make good amount of diuresis with the current does of diuretics. COVID was negative. Check influenza screen. Chest x-ray with small right and [id number] left posterior layering pleural effusion with associated atelectasis and/or pneumonia with cardiomegaly. Echo is ordered. V/Q scan has not been done. Will get CT chest further evaluate. Likely combination of COPD exacerbation as well as CHF. # acute COPD exacerbation. No prior history of COPD however diffusely wheezing with significant history of smoking. Bronchodilators, Solu-Medrol. # hyperglycemia related to type 2 diabetes SSI and Lantus as ordered adjust as needed. Increase Lantus to 15 units twice daily # elevated D-dimer refused contrast study. V/Q scan ordered received a dose of Lovenox. V/Q scan when able to do # renal insufficiency unknown whether it is acute or chronic. However likely chronic kidney disease stage 3 in February her creatinine was 1.8 currently 1.7 continue to monitor # elevated troponin next set is normal will continue to monitor likely due to hypoxia # acute on chronic CHF exacerbation. Echo in the past with Grade 1 diastolic dysfunction # left heel ulcer looks infected and needs debridement. Will consult General surgery. Will start on antibiotics as well vancomycin and Primaxin. This would also cover for possible pneumonia underlying. Mild leukocytosis noted. # History of mitral valve and aortic valve vegetation on 12/2019 # History of bilateral buttock abscess needing debridement and status post colostomy 2019 # mild anemia no signs of bleeding continue to monitor # history of intellectual disability, psychiatric illness # history of hepatitis C # colostomy status # hypertension # obesity # diabetic neuropathy # DVT prophylaxis Lovenox full dose received this morning will start DVT prophylaxis dose from tomorrow 30 mg subQ daily. # [facility] at [facility] since 2019 # full code Subjective Date/time seen: 08/03/21 15:45 Interval history: HPI:51-year-old female with past medical history of intellectual disability, psychiatric illness, poorly controlled diabetes mellitus, hypertension, hepatitis-C, colostomy and diabetic foot wound who presented to the ER from [facility] due to shortness of breath. Patient is uncooperative with providing much history and tells me multiple times to leave her alone so that she can sleep. Evidently [facility] the patient was on a portable oxygen tank of 3 L nasal cannula satting 78%. The patient is not usually on a oxygen at home. According to the EMS run report the patient started leal
--- NOTE | 2021-08-03 17:08 | PC.NURSE ---
Patient moved to IMU department room 202 at 1700. This nurse to resume care.
[2021-08-03] MEDS: INSULIN GLARGINE (*BKC) 100 UNITS/ML 15 UNITS SUB-Q ×2 (17:31→22:48)
[2021-08-03] MEDS: FUROSEMIDE INJ 40 MG/4 ML VIAL 20 MG IV PUSH (17:47)
[2021-08-03 18:04] LABS: Influenza Control Positive
[2021-08-03] MEDS: INSULIN ASPART (*BKC) 100 UNITS/ML 12 UNITS SUB-Q (18:09)
[2021-08-03 18:44] LABS: Glucose Point of Care 414 mg/dl (65-105)
[2021-08-03 20:52] LABS: Glucose Point of Care 465 mg/dl (65-105)
[2021-08-03] MEDS: INSULIN ASPART (*BKC) 100 UNITS/ML 15 UNITS SUB-Q (22:49)
[2021-08-04] VITALS (30 sets, daily range): BP systolic 137–180; BP diastolic 55–91; PULSE 62–98; RESP 11–22; TEMP 36.3–37.2; O2SAT 90–99
[2021-08-04] MEDS: ALBUTEROL SULFATE NEB 2.5 MG/0.5 ML INH 5 MG INHALATION ×4 (01:12→19:47)
[2021-08-04] MEDS: IPRATROPIUM BR 0.02% INH SOLN 0.5 MG/2.5 ML VIAL INHALATION ×4 (01:13→19:48)
[2021-08-04] MEDS: INSULIN ASPART (*BKC) 100 UNITS/ML 15 UNITS SUB-Q ×2 (04:51→20:13)
[2021-08-04 05:08] LABS: Alveolar/Arterial O2 Gradient 224.3 mmHg; Base Excess ABG -0.8 mEq/l (+/-2.0); Fractional Inspired Oxygen 50 %; HCO3 ABG 25.5 mEq/l (22.0-26.0); Methemoglobin ABG 0.3 %THb (0-1.5); Oxygen Saturation ABG 94.1 % (95.0-100.0); Oxyhemoglobin 94.3 % THb (90.0-100.0); PO2 FiO2 Ratio Arterial Blood 1.52 %; Reduced Hemoglobin 5.4 %THb (0-5.0); Total Hemoglobin 9.7 g/dL (12.0-18.0); pH ABG 7.325 (7.350-7.450)
[2021-08-04 05:09] LABS: Device NON-INVASIVE VENT; Modified Allen's Test Pass; Non-Invasive Expiratory Pressure 5 CMH2O; Non-Invasive Inspiratory Pressure 12 CMH2O; Non-Invasive Vent Rate 12 /MIN; Site Drawn LEFT RADIAL
[2021-08-04 05:13] LABS: Basophils Percent Auto 0.2 % (0.2-1.2); Hematocrit 29.3 % (37.0-47.0); Hemoglobin 8.5 g/dL (12.0-15.0); Immature Granulocyte Absolute 0.15 K/mm3 (0.00-0.031); Immature Granulocyte Percent A 1.6 % (0-0.5); Lymphocytes Absolute Auto 0.89 K/mm3 (0.9-3.2); Lymphocytes Percent Auto 9.3 % (18.3-44.2); Mean Corpuscular Hemoglobin 21.8 pg (26-34); Mean Corpuscular Volume 75.1 fl (80-100); Mean Platelet Volume 9.6 fl (7.4-10.4); Monocytes Absolute Auto 0.6 K/mm3 (0.1-0.6); Monocytes Percent Auto 5.8 % (2.6-8.5); Neutrophils Percent Auto 83.1 % (45.5-73.1); Nucleated Red Blood Cells Absolute Auto 0.1 K/mm3 (0.0-0.012); Nucleated Red Blood Cells Perc 0.8 % (0.0-0.2); Platelet Count Result 351 k/mm3 (150-375); White Blood Count 9.6 K/mm3 (4.5-10.0)
[2021-08-04] MEDS: methylPREDNISolone SOD SUCC 125 MG VIAL 60 MG IV PUSH ×2 (05:22→13:04)
[2021-08-04 05:27] LABS: Alanine Aminotransferase 15 U/L (4-35); Albumin Level 3.3 g/dL (3.5-5.1); Alkaline Phosphatase 114 U/L (38-126); Anion Gap 10 mmol/L (8-16); Aspartate Amino Transferase 16 U/L (14-36); Bilirubin,Total 0.2 mg/dL (0.2-1.3); Blood Urea Nitrogen 43 mg/dL (7-17); Calcium 7.9 mg/dL (8.4-10.2); Carbon Dioxide 25 mmol/L (22-30); Chloride 101 mmol/L (98-107); Estimated CRCL calculation 45 ml/min; Estimated Glomerular Filt Rate 31; Glucose 395 mg/dL (65-110); Potassium 3.7 mmol/L (3.4-5.0); Sodium 136 mmol/L (137-145)
[2021-08-04 05:46] LABS: Anisocytosis 2+ (NORMAL); Hypochromasia 2+ (NORMAL); Platelet Estimate Adequate (Adequate)
[2021-08-04 05:52] LABS: Glucose Point of Care 366 mg/dl (65-105)
[2021-08-04 07:25] LABS: Glucose Point of Care 370 mg/dl (65-105)
[2021-08-04] MEDS: FUROSEMIDE INJ 40 MG/4 ML VIAL IV PUSH (08:14)
[2021-08-04] MEDS: NICOTINE (*PBKC) 14 MG PATCH 1 PATCH TRANSDERM (08:14)
[2021-08-04] MEDS: cloNIDine 0.2 MG/24 HR PATCH 1 PATCH TRANSDERM (08:15)
[2021-08-04] MEDS: INSULIN GLARGINE (*BKC) 100 UNITS/ML 15 UNITS SUB-Q (08:29)
[2021-08-04] MEDS: INSULIN ASPART (*BKC) 100 UNITS/ML SUB-Q ×2 (08:30→17:33)
[2021-08-04] MEDS: INSULIN ASPART (*BKC) 100 UNITS/ML 6 UNITS SUB-Q (08:30)
[2021-08-04] MEDS: GABAPENTIN 300 MG CAPSULE PO ×3 (08:37→16:26)
[2021-08-04] MEDS: MULTIVITAMINS /C LUTEIN (CENTRUM SILVER) TABLET *BKC 1 TAB PO (08:37)
[2021-08-04] MEDS: carvediloL 25 MG TABLET PO ×2 (08:37→16:26)
[2021-08-04] MEDS: ASCORBIC ACID 500 MG TABLET PO ×2 (08:37→16:26)
[2021-08-04] MEDS: QUEtiapine FUMARATE XR 50 MG TAB.ER.24H 150 MG PO (08:37)
[2021-08-04] MEDS: CHOLECALCIFEROL 1,000 UNITS TABLET 2000 UNITS PO (08:37)
[2021-08-04] MEDS: hydrALAZINE HCL 50 MG TABLET PO ×2 (08:37→16:26)
[2021-08-04] MEDS: OLANZapine 5 MG TABLET PO (08:37)
[2021-08-04] MEDS: amLODIPine BESYLATE 5 MG TABLET 10 MG PO (08:37)
[2021-08-04] MEDS: ESCITALOPRAM OXALATE 10 MG TABLET PO (08:37)
[2021-08-04] MEDS: COLLAGENASE OINT 30 GM TUBE 1 APPLIC TOPICAL (08:38)
[2021-08-04] MEDS: ASPIRIN 81 MG CHEWABLE TABLET PO (08:38)
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
[2021-08-04] MEDS: ENOXAPARIN 30 MG/0.3 ML SYRINGE SUB-Q (10:44)
[2021-08-04] MEDS: INSULIN GLARGINE (*BKC) 100 UNITS/ML SUB-Q (10:45)
[2021-08-04 11:19] LABS: Glucose Point of Care 401 mg/dl (65-105)
[2021-08-04] MEDS: INSULIN ASPART (*BKC) 100 UNITS/ML 14 UNITS SUB-Q (12:30)
[2021-08-04] MEDS: INSULIN ASPART (*BKC) 100 UNITS/ML 10 UNITS SUB-Q ×2 (12:31→17:34)
--- NOTE | 2021-08-04 14:05 | PM.IMPN ---
Progress Note: A&P Assessment and Plan (1) Acute respiratory failure with hypoxia and hypercapnia: Code(s): J96.01 - Acute respiratory failure with hypoxia; J96.02 - Acute respiratory failure with hypercapnia Status: Acute (2) Tobacco dependence: Code(s): F17.200 - Nicotine dependence, unspecified, uncomplicated Status: Chronic (3) Hyperglycemia due to type 2 diabetes mellitus: Qualifiers: Diabetes mellitus chcf insulin use: with chcf use Qualified Code(s): E11.65 - Type 2 diabetes mellitus with hyperglycemia; Z79.4 - correction (current) use of insulin Code(s): E11.65 - Type 2 diabetes mellitus with hyperglycemia Status: Acute (4) D-dimer, elevated: Code(s): R79.89 - Other specified abnormal findings of blood chemistry Status: Acute Additional Plan # acute hypoxic hypercapnic respiratory failure on to have oxygen saturation of 78% likely acute COPD exacerbation. Needed BiPAP due to tachypnea and accessory muscle use. However diffuse BiPAP and repeat ABG with improvement. Possible congestive heart failure particularly diastolic. Bilateral lower extremity edema with elevated BNP more than 5000. Started on diuresis. Will increase to 40 mg in the morning and 20 in the evening. Monitor renal function and adjust as needed. Did make good amount of diuresis with the current does of diuretics. COVID was negative. Check influenza screen. Chest x-ray with small right and zrrop-gf-wxmotojk left posterior layering pleural effusion with associated atelectasis and/or pneumonia with cardiomegaly. Echo is ordered. V/Q scan has not been done. CT chest reviewed. Noted cardiomegaly with vptgh-re-vrevkzoy right small left pleural effusions and multisegmental bilateral airspace disease with volume loss most consistent with atelectasis. Superimposed pneumonia not entirely excludable. Chest x-ray 08/04/2021 with improved aeration On vancomycin on imipenem for broad-spectrum antibiotic coverage for pneumonia along with wound infection in left heel Hypoxic respiratory failure Likely combination of COPD exacerbation as well as CHF. # acute COPD exacerbation. No prior history of COPD however diffusely wheezing with significant history of smoking. Bronchodilators, Solu-Medrol. Will lower the frequency of Solu-Medrol # hyperglycemia related to type 2 diabetes SSI and Lantus as ordered adjust as needed. Add prandial insulin along with increase Lantus # elevated D-dimer refused contrast study. V/Q scan ordered received a dose of Lovenox. V/Q scan when able to do # renal insufficiency unknown whether it is acute or chronic. However likely chronic kidney disease stage 3 in February her creatinine was 1.8 currently 1.7 continue to monitor # elevated troponin next set is normal will continue to monitor likely due to hypoxia # acute on chronic CHF exacerbation. Echo in the past with Grade 1 diastolic dysfunction continue diuresis # left heel ulcer looks infected and needs debridement. General surgery consulted. Started on antibiotics as well vancomycin and Primaxin. This would also cover for possible pneumonia underlying. Mild leukocytosis noted. # History of mitral valve and aortic valve vegetation on 12/2019 # History of bilateral buttock abscess needing debridement and status post colostomy 2019 # mild anemia no signs of bleeding continue to monitor # history of intellectual disability, psychiatric illness #history of hepatitis C # colostomy status # hypertension # obesity # diabetic neuropathy # DVT prophylaxis Lovenox full dose received this morning will start DVT prophylaxis dose from tomorrow 30 mg subQ daily. # shelter resident at [facility] since 2019 # full code Subjective Date/time seen: 08/04/21 14:05 Interval history: HPI:51-year-old female with past medical history of intellectual disability, psychiatric illness, poorly controlled d
[2021-08-04] MEDS: FUROSEMIDE INJ 40 MG/4 ML VIAL 20 MG IV PUSH (16:24)
[2021-08-04 16:33] LABS: Glucose Point of Care 327 mg/dl (65-105)
[2021-08-04 19:57] LABS: Glucose Point of Care 425 mg/dl (65-105)
[2021-08-04] MEDS: INSULIN GLARGINE (*BKC) 100 UNITS/ML 40 UNITS SUB-Q (20:12)
[2021-08-04] MEDS: ATORVASTATIN 40 MG TABLET PO (20:14)
[2021-08-04] MEDS: methylPREDNISolone SOD SUCC 40 MG VIAL IV PUSH (20:14)
[2021-08-04] MEDS: hydrOXYzine HCL 25 MG TABLET PO (20:15)
[2021-08-04 23:35] LABS: Glucose Point of Care 328 mg/dl (65-105)
[2021-08-04] MEDS: guaiFENesin 12 HR 600 MG TABCR PO (23:43)
[2021-08-05] VITALS (22 sets, daily range): BP systolic 130–179; BP diastolic 67–81; PULSE 57–78; RESP 14–27; TEMP 36–37.2; O2SAT 93–99
[2021-08-05] MEDS: INSULIN ASPART (*BKC) 100 UNITS/ML 10 UNITS SUB-Q ×3 (00:28→13:02)
[2021-08-05] MEDS: IPRATROPIUM BR 0.02% INH SOLN 0.5 MG/2.5 ML VIAL INHALATION ×3 (03:02→20:37)
[2021-08-05] MEDS: ALBUTEROL SULFATE NEB 2.5 MG/0.5 ML INH 5 MG INHALATION ×3 (03:02→20:37)
[2021-08-05 05:36] LABS: Basophils Percent Auto 0.2 % (0.2-1.2); Hematocrit 30.2 % (37.0-47.0); Hemoglobin 8.9 g/dL (12.0-15.0); Immature Granulocyte Absolute 0.16 K/mm3 (0.00-0.031); Immature Granulocyte Percent A 1.5 % (0-0.5); Lymphocytes Absolute Auto 1.11 K/mm3 (0.9-3.2); Lymphocytes Percent Auto 10.3 % (18.3-44.2); Mean Corpuscular HGB Conc 29.5 g/dl (32-36); Mean Corpuscular Hemoglobin 21.8 pg (26-34); Mean Corpuscular Volume 73.8 fl (80-100); Mean Platelet Volume 9.8 fl (7.4-10.4); Monocytes Absolute Auto 0.6 K/mm3 (0.1-0.6); Monocytes Percent Auto 5.3 % (2.6-8.5); Neutrophils Absolute Auto 8.9 K/mm3 (1.3-6.7); Neutrophils Percent Auto 82.7 % (45.5-73.1); Nucleated Red Blood Cells Absolute Auto 0.1 K/mm3 (0.0-0.012); Nucleated Red Blood Cells Perc 0.6 % (0.0-0.2); Platelet Count Result 344 k/mm3 (150-375); Red Blood Count 4.09 M/mm3 (4.2-5.4); Red Cell Distribution Width 21.2 % (11.5-14.5); White Blood Count 10.8 K/mm3 (4.5-10.0)
[2021-08-05 05:46] LABS: Alanine Aminotransferase 13 U/L (4-35); Albumin Level 3.5 g/dL (3.5-5.1); Alkaline Phosphatase 97 U/L (38-126); Anion Gap 8 mmol/L (8-16); Aspartate Amino Transferase 17 U/L (14-36); Bilirubin,Total 0.2 mg/dL (0.2-1.3); Blood Urea Nitrogen 52 mg/dL (7-17); Carbon Dioxide 28 mmol/L (22-30); Chloride 100 mmol/L (98-107); Estimated CRCL calculation 45 ml/min; Estimated Glomerular Filt Rate 31; Glucose 276 mg/dL (65-110); Magnesium 1.9 mg/dL (1.6-2.3); Potassium 3.5 mmol/L (3.4-5.0); Sodium 136 mmol/L (137-145)
[2021-08-05] MEDS: NICOTINE (*PBKC) 14 MG PATCH 1 PATCH TRANSDERM (08:55)
[2021-08-05] MEDS: cloNIDine 0.2 MG/24 HR PATCH 1 PATCH TRANSDERM (08:55)
[2021-08-05] MEDS: ASPIRIN 81 MG CHEWABLE TABLET PO (08:55)
[2021-08-05] MEDS: FUROSEMIDE INJ 40 MG/4 ML VIAL IV PUSH (08:56)
[2021-08-05] MEDS: hydrALAZINE HCL 50 MG TABLET PO ×2 (08:56→18:02)
[2021-08-05] MEDS: GABAPENTIN 300 MG CAPSULE PO ×3 (08:56→18:02)
[2021-08-05] MEDS: carvediloL 25 MG TABLET PO ×2 (08:56→18:02)
[2021-08-05] MEDS: INSULIN ASPART (*BKC) 100 UNITS/ML SUB-Q ×3 (08:57→18:03)
[2021-08-05] MEDS: INSULIN GLARGINE (*BKC) 100 UNITS/ML 20 UNITS SUB-Q ×2 (08:57→20:49)
[2021-08-05] MEDS: ENOXAPARIN 30 MG/0.3 ML SYRINGE SUB-Q (08:58)
[2021-08-05] MEDS: MULTIVITAMINS /C LUTEIN (CENTRUM SILVER) TABLET *BKC 1 TAB PO (08:58)
[2021-08-05] MEDS: guaiFENesin 12 HR 600 MG TABCR PO ×2 (08:58→20:56)
[2021-08-05] MEDS: methylPREDNISolone SOD SUCC 40 MG VIAL IV PUSH ×2 (08:58→20:56)
[2021-08-05] MEDS: amLODIPine BESYLATE 5 MG TABLET 10 MG PO (08:58)
[2021-08-05] MEDS: ASCORBIC ACID 500 MG TABLET PO ×2 (08:59→18:02)
[2021-08-05] MEDS: QUEtiapine FUMARATE XR 50 MG TAB.ER.24H 150 MG PO (08:59)
[2021-08-05] MEDS: COLLAGENASE OINT 30 GM TUBE 1 APPLIC TOPICAL ×2 (08:59→22:27)
[2021-08-05] MEDS: ESCITALOPRAM OXALATE 10 MG TABLET PO (08:59)
[2021-08-05] MEDS: OLANZapine 5 MG TABLET PO (08:59)
[2021-08-05] MEDS: CHOLECALCIFEROL 1,000 UNITS TABLET 2000 UNITS PO (09:00)
[2021-08-05 09:58] LABS: Glucose Point of Care 264 mg/dl (65-105)
[2021-08-05 13:33] LABS: Glucose Point of Care 265 mg/dl (65-105)
--- NOTE | 2021-08-05 14:27 | PM.IMPN ---
Progress Note: A&P Assessment and Plan (1) Acute respiratory failure with hypoxia and hypercapnia: Code(s): J96.01 - Acute respiratory failure with hypoxia; J96.02 - Acute respiratory failure with hypercapnia Status: Acute (2) Tobacco dependence: Code(s): F17.200 - Nicotine dependence, unspecified, uncomplicated Status: Chronic (3) Hyperglycemia due to type 2 diabetes mellitus: Qualifiers: Diabetes mellitus intermediate frame tender insulin use: with residential use Qualified Code(s): E11.65 - Type 2 diabetes mellitus with hyperglycemia; Z79.4 - watermelon inspector (current) use of insulin Code(s): E11.65 - Type 2 diabetes mellitus with hyperglycemia Status: Acute (4) D-dimer, elevated: Code(s): R79.89 - Other specified abnormal findings of blood chemistry Status: Acute Additional Plan # acute hypoxic hypercapnic respiratory failure on to have oxygen saturation of 78% likely acute COPD exacerbation. Needed BiPAP due to tachypnea and accessory muscle use. However diffuse BiPAP and repeat ABG with improvement. Possible congestive heart failure particularly diastolic. Bilateral lower extremity edema with elevated BNP more than 5000. Started on diuresis. Will increase to 40 mg in the morning and 20 in the evening. Monitor renal function and adjust as needed. Did make good amount of diuresis with the current does of diuretics. COVID was negative. Check influenza screen. Chest x-ray with small right and piiet-cp-dljtuuha left posterior layering pleural effusion with associated atelectasis and/or pneumonia with cardiomegaly. Echo is ordered. V/Q scan with moderate size and large matched defect in left lower lobe, small matched defect in the upper lobes of right lower lobe: Intermediate probability for PE. CT chest reviewed. Noted cardiomegaly with djvjk-tp-bmovctot right small left pleural effusions and multisegmental bilateral airspace disease with volume loss most consistent with atelectasis. Superimposed pneumonia not entirely excludable. Echo 08/03/2021 EF 60-65% moderately increased left ventricular wall thickness small echogenic mass attached to left coronary cusp measuring 0.28 cm x 0.93 cm suggestive of vegetation infective endocarditis. Blood culture however has been negative. Will need further evaluation with EAMON. Will consult Cardiology for this finding Chest x-ray 08/04/2021 with improved aeration On vancomycin on imipenem for broad-spectrum antibiotic coverage for pneumonia along with wound infection in left heel Hypoxic respiratory failure Likely combination of COPD exacerbation as well as CHF. # acute COPD exacerbation. No prior history of COPD however diffusely wheezing with significant history of smoking. Bronchodilators, Solu-Medrol. Continue Solu Medrol # hyperglycemia related to type 2 diabetes SSI and Lantus as ordered adjust as needed. Add prandial insulin along with increase Lantus # elevated D-dimer refused contrast study. V/Q scan ordered received a dose of Lovenox. V/Q scan with intermediate probability. Cannot do CTA due to renal insufficiency. Consult pulmonary. Will cover with therapeutic anticoagulation for PE. Check lower extremity Doppler # renal insufficiency unknown whether it is acute or chronic. However likely chronic kidney disease stage 3 in February her creatinine was 1.8 currently 1.7 continue to monitor # elevated troponin next set is normal will continue to monitor likely due to hypoxia # acute on chronic CHF exacerbation. Echo in the past with Grade 1 diastolic dysfunction continue diuresis # left heel ulcer looks infected and needs debridement. General surgery consulted. Started on antibiotics as well vancomycin and Primaxin. This would also cover for possible pneumonia underlying. Mild leukocytosis noted. # History of mitral valve and aortic valve vegetation on 12/2019 # History of bilateral buttock abscess needing debridement and status post colostomy
[2021-08-05] MEDS: INSULIN GLARGINE (*BKC) 100 UNITS/ML 10 UNITS SUB-Q (15:01)
--- NOTE | 2021-08-05 15:24 | PC.NURSE ---
Patient down to ultrasound at 1524. Transported by transport team via bed.
[2021-08-05 15:41] LABS: NT Pro B Type Natriuretic Pept 4820 pg/mL (5-100)
--- NOTE | 2021-08-05 16:12 | PC.NURSE ---
Patient back from ultrasound at 1612.
[2021-08-05 16:34] LABS: Glucose Point of Care 322 mg/dl (65-105)
--- NOTE | 2021-08-05 17:02 | PM.CNCAR ---
Assessment and Plan Assessment and plan (1) Abnormal echocardiogram: Code(s): R93.1 - Abnormal findings on diagnostic imaging of heart and coronary circulation Status: Acute Assessment and Plan: Echocardiogram reveals preserved LV systolic function without wall motion abnormalities, diastolic dysfunction. Mobile echodensity on left coronary cusp previous noted to be nodular calcification and mobile echodensity at the posterior mitral annulus on EAMON also found to be consistent with mobile calcification and not infective endocarditis patient is is not highly suspicious for infective endocarditis. Blood cultures negative to date from 08/03/2021. Continue to follow. No further workup or imaging indicated for chronic calcifications confirmed by repeat EAMON and again similar on surface echocardiograms over the past 2 years. (2) CHF (congestive heart failure): Code(s): I50.9 - Heart failure, unspecified Status: Acute Assessment and Plan: Possible mild decompensated heart failure with preserved ejection fraction in setting of acute on chronic hypoxic and hypercapnic respiratory failure. Patient very likely has underlying CONNOR and COPD. Gentle diuresis. Accurate input and output, daily weight. Monitor renal function electrolytes. Reassess volume status in a.m. consider transition to oral regimen after tomorrow. (3) Acute respiratory failure with hypoxia and hypercapnia: Code(s): J96.01 - Acute respiratory failure with hypoxia; J96.02 - Acute respiratory failure with hypercapnia Status: Acute Assessment and Plan: Continue support with supplemental oxygenation, BiPAP, antibiotics, bronchodilator therapy. Management per primary service. (4) Hypertension, uncontrolled: Code(s): I10 - Essential (primary) hypertension Status: Acute Assessment and Plan: Improved since admission. Continue to monitor (5) Diabetes mellitus type 2, uncontrolled: Qualifiers: Glycemic state: with hyperglycemia Qualified Code(s): E11.65 - Type 2 diabetes mellitus with hyperglycemia Code(s): E11.65 - Type 2 diabetes mellitus with hyperglycemia Status: Acute Assessment and Plan: Per primary service. (6) Tobacco dependence: Code(s): F17.200 - Nicotine dependence, unspecified, uncomplicated Status: Chronic Assessment and Plan: Smoking cessation staff genetic counselor performed. Patient very likely has COPD. History of Present Illness History of Present Illness Consult date/time: Date of service: 08/05/21 17:02 Cardiology consultation at the request of Dr. Rao for opinion regarding abnormal echocardiogram Requesting physician: Melvin Rao MD Consult reason: Other (Abnormal echocardiogram) Reason For Visit: Acute respiratory failure, acute CHF Narrative: Patient is a 51-year-old complicated female with a past medical history significant for intellectual disability, poorly controlled diabetes mellitus, hypertension diabetic ulcers, history of colostomy who was in half-way resident who was brought to the ER for complaints of shortness of breath and cough on 08/03/2021. Patient states she is not usually on oxygen. She denies chest pain at this time but admits to intermittent sharp right-sided and occasional left-sided chest pain once every 1-2 months lasting an hour so then resolved spontaneously. Sometimes worse with coughing no palpitations. Patient denies any prior known problems with her heart. She has a history mobile calcification and mention of vegetation on left coronary cusp of the aortic valve by echocardiogram 2019 and again this hospitalization. Reports from [facility] reveals 2 transesophageal echocardiograms which reveal mobile calcification posterior mitral valve annulus and nodular calcification of left coronary cusp of the aortic valve unchanged compared to previous studies. She does not recall having transesophageal echocardiogram perf
[2021-08-05] MEDS: FUROSEMIDE INJ 40 MG/4 ML VIAL 20 MG IV PUSH (18:02)
[2021-08-05] MEDS: ENOXAPARIN 120 MG/0.8 ML SYRINGE SUB-Q (18:03)
[2021-08-05] MEDS: INSULIN ASPART (*BKC) 100 UNITS/ML 14 UNITS SUB-Q (18:03)
[2021-08-05] MEDS: INSULIN GLARGINE (*BKC) 100 UNITS/ML 30 UNITS SUB-Q (18:04)
[2021-08-05 20:04] LABS: Glucose Point of Care 348 mg/dl (65-105)
[2021-08-05 20:34] LABS: Glucose Point of Care 458 mg/dl (65-105)
[2021-08-05] MEDS: INSULIN ASPART (*BKC) 100 UNITS/ML 18 UNITS SUB-Q (20:50)
[2021-08-05] MEDS: ATORVASTATIN 40 MG TABLET PO (20:56)
[2021-08-05] MEDS: hydrOXYzine HCL 25 MG TABLET PO (20:56)
[2021-08-06] VITALS (25 sets, daily range): BP systolic 145–178; BP diastolic 65–81; PULSE 65–79; RESP 16–22; TEMP 36.1–36.9; O2SAT 87–99
[2021-08-06 00:23] LABS: Glucose Point of Care 316 mg/dl (65-105)
[2021-08-06] MEDS: INSULIN ASPART (*BKC) 100 UNITS/ML 15 UNITS SUB-Q (01:04)
[2021-08-06] MEDS: ACETAMINOPHEN 325 MG TABLET 650 MG PO ×2 (02:34→17:44)
[2021-08-06] MEDS: ALBUTEROL SULFATE NEB 2.5 MG/0.5 ML INH 5 MG INHALATION ×4 (02:40→20:55)
[2021-08-06] MEDS: IPRATROPIUM BR 0.02% INH SOLN 0.5 MG/2.5 ML VIAL INHALATION ×4 (02:40→20:55)
[2021-08-06] MEDS: ENOXAPARIN 120 MG/0.8 ML SYRINGE SUB-Q (05:30)
--- NOTE | 2021-08-06 06:40 | PC.NURSE ---
Patient refused blood draws at 0430 and 0630 for cbc, mag cmp and glucose.
[2021-08-06 09:04] LABS: Glucose Point of Care 273 mg/dl (65-105)
[2021-08-06] MEDS: INSULIN GLARGINE (*BKC) 100 UNITS/ML 30 UNITS SUB-Q (10:27)
[2021-08-06] MEDS: INSULIN ASPART (*BKC) 100 UNITS/ML SUB-Q ×3 (10:28→17:33)
[2021-08-06] MEDS: INSULIN ASPART (*BKC) 100 UNITS/ML 14 UNITS SUB-Q ×3 (10:28→17:33)
[2021-08-06] MEDS: methylPREDNISolone SOD SUCC 40 MG VIAL IV PUSH (10:30)
[2021-08-06] MEDS: FUROSEMIDE INJ 40 MG/4 ML VIAL IV PUSH (10:30)
[2021-08-06] MEDS: ASPIRIN 81 MG CHEWABLE TABLET PO (10:34)
[2021-08-06] MEDS: carvediloL 25 MG TABLET PO ×2 (10:34→17:31)
[2021-08-06] MEDS: hydrALAZINE HCL 50 MG TABLET PO ×2 (10:34→17:31)
[2021-08-06] MEDS: amLODIPine BESYLATE 5 MG TABLET 10 MG PO (10:34)
[2021-08-06] MEDS: guaiFENesin 12 HR 600 MG TABCR PO ×2 (10:35→20:49)
[2021-08-06] MEDS: ASCORBIC ACID 500 MG TABLET PO ×2 (10:35→17:31)
[2021-08-06] MEDS: OLANZapine 5 MG TABLET PO (10:35)
[2021-08-06] MEDS: ESCITALOPRAM OXALATE 10 MG TABLET PO (10:35)
[2021-08-06] MEDS: GABAPENTIN 300 MG CAPSULE PO ×2 (10:35→17:31)
[2021-08-06] MEDS: QUEtiapine FUMARATE XR 50 MG TAB.ER.24H 150 MG PO (10:36)
[2021-08-06] MEDS: cloNIDine 0.2 MG/24 HR PATCH 1 PATCH TRANSDERM (10:36)
[2021-08-06 12:09] LABS: Glucose Point of Care 308 mg/dl (65-105)
--- NOTE | 2021-08-06 13:07 | PM.IMPN ---
Progress Note: A&P Assessment and Plan (1) Acute respiratory failure with hypoxia and hypercapnia: Code(s): J96.01 - Acute respiratory failure with hypoxia; J96.02 - Acute respiratory failure with hypercapnia Status: Acute (2) Tobacco dependence: Code(s): F17.200 - Nicotine dependence, unspecified, uncomplicated Status: Chronic (3) Hyperglycemia due to type 2 diabetes mellitus: Qualifiers: Diabetes mellitus termite exterminator insulin use: with termite exterminator use Qualified Code(s): E11.65 - Type 2 diabetes mellitus with hyperglycemia; Z79.4 - long term care pharmacist (current) use of insulin Code(s): E11.65 - Type 2 diabetes mellitus with hyperglycemia Status: Acute (4) D-dimer, elevated: Code(s): R79.89 - Other specified abnormal findings of blood chemistry Status: Acute Additional Plan # acute hypoxic hypercapnic respiratory failure on to have oxygen saturation of 78% likely acute COPD exacerbation. Needed BiPAP due to tachypnea and accessory muscle use. However diffuse BiPAP and repeat ABG with improvement. Possible congestive heart failure particularly diastolic. Bilateral lower extremity edema with elevated BNP more than 5000. Started on diuresis. increased to 40 mg in the morning and 20 in the evening. Monitor renal function and adjust as needed. Did make good amount of diuresis with the current does of diuretics. COVID was negative. Influenza screen negative Chest x-ray with small right and wcnqs-vz-njyrleuy left posterior layering pleural effusion with associated atelectasis and/or pneumonia with cardiomegaly. Echo is ordered. V/Q scan with moderate size and large matched defect in left lower lobe, small matched defect in the upper lobes of right lower lobe: Intermediate probability for PE. CT chest reviewed. Noted cardiomegaly with rswnx-xs-iexofncw right small left pleural effusions and multisegmental bilateral airspace disease with volume loss most consistent with atelectasis. Superimposed pneumonia not entirely excludable. Echo 08/03/2021 EF 60-65% moderately increased left ventricular wall thickness small echogenic mass attached to left coronary cusp measuring 0.28 cm x 0.93 cm suggestive of vegetation infective endocarditis. Blood culture however has been negative. Consulted Cardiology. Farm Implement Mechanic suggest these finding to be related to mobile calcification and not infective endocarditis. Fransisco deferred. Chest x-ray 08/04/2021 with improved aeration On vancomycin on imipenem for broad-spectrum antibiotic coverage for pneumonia along with wound infection in left heel Hypoxic respiratory failure Likely combination of COPD exacerbation as well as CHF. Further assessment for indeterminate V/Q scan with duplex ultrasound upper and lower extremities came back negative. Low likelihood of this being PE related. Will resume DVT prophylaxis dose now. # acute COPD exacerbation. No prior history of COPD however diffusely wheezing with significant history of smoking. Bronchodilators, Solu-Medrol. Continue Solu Medrol Change to p.o. prednisone # hyperglycemia related to type 2 diabetes SSI and Lantus as ordered adjust as needed. Add prandial insulin along with increase Lantus. Hyperglycemia related to steroid use. # elevated D-dimer refused contrast study. V/Q scan ordered received a dose of Lovenox. V/Q scan with intermediate probability. Cannot do CTA due to renal insufficiency. Covered with therapeutic anticoagulation for PE. Check lower extremity Doppler in upper extremity Doppler which came back negative for DVT low likelihood for this to be related to PE. Will lower down to prophylactic dose of Lovenox. # renal insufficiency unknown whether it is acute or chronic. However likely chronic kidney disease stage 3 in February her creatinine was 1.8 currently 1.7 continue to monitor # elevated troponin next set is normal will continue to monitor likely due to hypoxia # acute on chronic CHF exacerbati
[2021-08-06 16:06] LABS: Basophils Percent Auto 0.1 % (0.2-1.2); Hematocrit 31.7 % (37.0-47.0); Hemoglobin 9.4 g/dL (12.0-15.0); Immature Granulocyte Absolute 0.17 K/mm3 (0.00-0.031); Immature Granulocyte Percent A 1.6 % (0-0.5); Lymphocytes Absolute Auto 0.89 K/mm3 (0.9-3.2); Lymphocytes Percent Auto 8.5 % (18.3-44.2); Mean Corpuscular HGB Conc 29.7 g/dl (32-36); Mean Corpuscular Hemoglobin 22.2 pg (26-34); Mean Corpuscular Volume 74.8 fl (80-100); Mean Platelet Volume 9.5 fl (7.4-10.4); Monocytes Absolute Auto 0.7 K/mm3 (0.1-0.6); Monocytes Percent Auto 6.3 % (2.6-8.5); Neutrophils Absolute Auto 8.7 K/mm3 (1.3-6.7); Neutrophils Percent Auto 83.5 % (45.5-73.1); Nucleated Red Blood Cells Absolute Auto 0.1 K/mm3 (0.0-0.012); Nucleated Red Blood Cells Perc 0.7 % (0.0-0.2); Platelet Count Result 321 k/mm3 (150-375); Red Blood Count 4.24 M/mm3 (4.2-5.4); Red Cell Distribution Width 21.1 % (11.5-14.5); White Blood Count 10.4 K/mm3 (4.5-10.0)
[2021-08-06 16:35] LABS: Alanine Aminotransferase 19 U/L (4-35); Albumin Level 3.3 g/dL (3.5-5.1); Alkaline Phosphatase 111 U/L (38-126); Anion Gap 8 mmol/L (8-16); Aspartate Amino Transferase 35 U/L (14-36); Bilirubin,Total 0.4 mg/dL (0.2-1.3); Blood Urea Nitrogen 68 mg/dL (7-17); Calcium 7.5 mg/dL (8.4-10.2); Carbon Dioxide 31 mmol/L (22-30); Chloride 94 mmol/L (98-107); Estimated CRCL calculation 45 ml/min; Estimated Glomerular Filt Rate 31; Glucose 259 mg/dL (65-110); Magnesium 1.8 mg/dL (1.6-2.3); Potassium 3.7 mmol/L (3.4-5.0); Sodium 133 mmol/L (137-145)
[2021-08-06 16:48] LABS: Glucose Point of Care 280 mg/dl (65-105)
[2021-08-06 17:02] LABS: Vancomycin Trough 24.2 ug/mL (10.0-20.0)
[2021-08-06] MEDS: INSULIN GLARGINE (*BKC) 100 UNITS/ML 40 UNITS SUB-Q (17:32)
[2021-08-06] MEDS: FUROSEMIDE INJ 40 MG/4 ML VIAL 20 MG IV PUSH (17:32)
[2021-08-06 20:02] LABS: Glucose Point of Care 397 mg/dl (65-105)
[2021-08-06] MEDS: ATORVASTATIN 40 MG TABLET PO (20:49)
[2021-08-06] MEDS: hydrOXYzine HCL 25 MG TABLET PO (20:49)
[2021-08-07] VITALS (27 sets, daily range): BP systolic 132–166; BP diastolic 65–98; PULSE 62–116; RESP 12–24; TEMP 36.2–36.6; O2SAT 90–98
[2021-08-07] MEDS: ALBUTEROL SULFATE NEB 2.5 MG/0.5 ML INH 5 MG INHALATION ×3 (03:00→19:36)
[2021-08-07] MEDS: IPRATROPIUM BR 0.02% INH SOLN 0.5 MG/2.5 ML VIAL INHALATION ×3 (03:00→19:36)
[2021-08-07] MEDS: ENOXAPARIN 40 MG/0.4 ML SYRINGE SUB-Q (06:01)
[2021-08-07 07:59] LABS: Glucose Point of Care 258 mg/dl (65-105)
[2021-08-07 09:24] LABS: Alanine Aminotransferase 17 U/L (4-35); Albumin Level 3.1 g/dL (3.5-5.1); Alkaline Phosphatase 101 U/L (38-126); Anion Gap 7 mmol/L (8-16); Aspartate Amino Transferase 24 U/L (14-36); Bilirubin,Total 0.3 mg/dL (0.2-1.3); Blood Urea Nitrogen 72 mg/dL (7-17); Calcium 7.5 mg/dL (8.4-10.2); Carbon Dioxide 33 mmol/L (22-30); Chloride 94 mmol/L (98-107); Estimated CRCL calculation 41 ml/min; Estimated Glomerular Filt Rate 29; Glucose 205 mg/dL (65-110); Magnesium 1.9 mg/dL (1.6-2.3); Potassium 3.4 mmol/L (3.4-5.0); Sodium 134 mmol/L (137-145)
[2021-08-07 09:27] LABS: Basophils Percent Auto 0.2 % (0.2-1.2); Eosinophils Percent Auto 0.2 % (0-4.4); Hematocrit 31.6 % (37.0-47.0); Hemoglobin 9.2 g/dL (12.0-15.0); Immature Granulocyte Absolute 0.15 K/mm3 (0.00-0.031); Immature Granulocyte Percent A 1.2 % (0-0.5); Lymphocytes Absolute Auto 2.88 K/mm3 (0.9-3.2); Lymphocytes Percent Auto 22.5 % (18.3-44.2); Mean Corpuscular HGB Conc 29.1 g/dl (32-36); Mean Corpuscular Volume 75.6 fl (80-100); Monocytes Absolute Auto 1.6 K/mm3 (0.1-0.6); Monocytes Percent Auto 12.2 % (2.6-8.5); Neutrophils Absolute Auto 8.2 K/mm3 (1.3-6.7); Neutrophils Percent Auto 63.7 % (45.5-73.1); Nucleated Red Blood Cells Perc 0.3 % (0.0-0.2); Platelet Count Result 301 k/mm3 (150-375); Red Blood Count 4.18 M/mm3 (4.2-5.4); Red Cell Distribution Width 20.9 % (11.5-14.5); White Blood Count 12.8 K/mm3 (4.5-10.0)
--- NOTE | 2021-08-07 09:31 | PCRCNOTE ---
Window of time for administration has passed. See next scheduled administration.
[2021-08-07 10:32] LABS: Atypical Lymphocytes Present; Hypochromasia 2+ (NORMAL); Platelet Estimate Adequate (Adequate)
[2021-08-07] MEDS: QUEtiapine FUMARATE XR 50 MG TAB.ER.24H 150 MG PO (10:42)
[2021-08-07] MEDS: ESCITALOPRAM OXALATE 10 MG TABLET PO (10:43)
[2021-08-07] MEDS: cloNIDine 0.2 MG/24 HR PATCH 1 PATCH TRANSDERM (10:43)
[2021-08-07] MEDS: amLODIPine BESYLATE 5 MG TABLET 10 MG PO (10:43)
[2021-08-07] MEDS: hydrALAZINE HCL 50 MG TABLET PO ×3 (10:44→17:19)
[2021-08-07] MEDS: CHOLECALCIFEROL 1,000 UNITS TABLET 2000 UNITS PO (10:44)
[2021-08-07] MEDS: guaiFENesin 12 HR 600 MG TABCR PO ×2 (10:44→21:19)
[2021-08-07] MEDS: predniSONE 20 MG TABLET 40 MG PO (10:44)
[2021-08-07] MEDS: GABAPENTIN 300 MG CAPSULE PO ×3 (10:44→17:18)
[2021-08-07] MEDS: MULTIVITAMINS /C LUTEIN (CENTRUM SILVER) TABLET *BKC 1 TAB PO (10:44)
[2021-08-07] MEDS: OLANZapine 5 MG TABLET PO (10:45)
[2021-08-07] MEDS: ASCORBIC ACID 500 MG TABLET PO ×2 (10:45→17:19)
--- NOTE | 2021-08-07 10:45 | PM.PNCARD ---
Progress Note: A&P Assessment and Plan (1) Abnormal echocardiogram: Code(s): R93.1 - Abnormal findings on diagnostic imaging of heart and coronary circulation Status: Acute Assessment and Plan: Echocardiogram reveals preserved LV systolic function without wall motion abnormalities, diastolic dysfunction. Mobile echodensity on left coronary cusp previous noted to be nodular calcification and mobile echodensity at the posterior mitral annulus on EAMON also found to be consistent with mobile calcification and not infective endocarditis patient is is not highly suspicious for infective endocarditis. Blood cultures negative to date from 08/03/2021. Continue to follow. No further workup or imaging indicated for chronic calcifications confirmed by repeat EAMON and again similar on surface echocardiograms over the past 2 years. -no further cardiovascular workup in this regard warranted. (2) CHF (congestive heart failure): Code(s): I50.9 - Heart failure, unspecified Status: Acute Assessment and Plan: Possible mild decompensated heart failure with preserved ejection fraction in setting of acute on chronic hypoxic and hypercapnic respiratory failure. Patient very likely has underlying CONNOR and COPD. -significant increase in BUN. Discontinue IV Lasix. Very good urine output past 48 hours. Change to Lasix 40 mg daily for more gentle diuresis. Accurate input and output, daily weight. Monitor renal function electrolytes. -patient will follow-up with her bending press operator as an outpatient. No further recommendations at this time. Please do not hesitate to contact us with any additional questions or concerns. -we will sign off for now. (3) Acute respiratory failure with hypoxia and hypercapnia: Code(s): J96.01 - Acute respiratory failure with hypoxia; J96.02 - Acute respiratory failure with hypercapnia Status: Acute Assessment and Plan: Improving. Continue support with supplemental oxygenation, BiPAP, antibiotics, bronchodilator therapy. Management per primary service. (4) Hypertension, uncontrolled: Code(s): I10 - Essential (primary) hypertension Status: Acute Assessment and Plan: Improved since admission. Continue to monitor (5) Diabetes mellitus type 2, uncontrolled: Qualifiers: Glycemic state: with hyperglycemia Qualified Code(s): E11.65 - Type 2 diabetes mellitus with hyperglycemia Code(s): E11.65 - Type 2 diabetes mellitus with hyperglycemia Status: Acute Assessment and Plan: Per primary service. (6) Tobacco dependence: Code(s): F17.200 - Nicotine dependence, unspecified, uncomplicated Status: Chronic Assessment and Plan: Smoking cessation adult school counselor performed. Patient very likely has COPD. Subjective Date/time seen: Date of service: 08/07/21 10:45 Follow-up for abnormal echocardiogram, shortness of breath Patient initially refusing to speak with me lying in bed with her covers over her face eventually agreed speak with me and undergo examination. She states her breathing is better. She denies shortness of breath lying down, chest pain, palpitations. No edema. No new issues overnight. Review of Systems Review of Systems: All systems reviewed & are unremarkable except as noted in HPI and below Constitutional: Constitutional: Reports as per HPI, Reports no additional constitutional complaints, Reports fatigue, Denies fever(s) and Reports lethargy Eyes: Eyes: Reports as per HPI and Reports no additional eye complaints ENT: Reports system reviewed and no additional complaints, except as documented and Reports as per HPI Cardiovascular: Cardiovascular: Reports as per HPI, Reports no additional cardiovascular complaints, Denies chest pain, Reports pedal edema, Reports leg ulcers, Reports dyspnea and Reports dyspnea on exertion Respiratory: Respiratory: Reports as per HPI, Reports no additional respiratory complaints,
[2021-08-07] MEDS: ASPIRIN 81 MG CHEWABLE TABLET PO (10:46)
[2021-08-07] MEDS: carvediloL 25 MG TABLET PO ×2 (10:46→17:19)
[2021-08-07] MEDS: INSULIN ASPART (*BKC) 100 UNITS/ML SUB-Q (10:47)
[2021-08-07] MEDS: INSULIN ASPART (*BKC) 100 UNITS/ML 14 UNITS SUB-Q ×2 (10:47→12:48)
[2021-08-07] MEDS: INSULIN GLARGINE (*BKC) 100 UNITS/ML 40 UNITS SUB-Q ×2 (10:47→17:18)
[2021-08-07] MEDS: COLLAGENASE OINT 30 GM TUBE 1 APPLIC TOPICAL (10:48)
--- NOTE | 2021-08-07 11:10 | PCPTNOTE ---
Patient refused treatment this session due to butt hurts . Pt uncovered her face when therapy walked into the room. Pulled the covers over her head and shouted no when asked to sit EOB with therapy. Will attempt again.
[2021-08-07] MEDS: FUROSEMIDE 40 MG TABLET PO (12:44)
[2021-08-07 12:49] LABS: Glucose Point of Care 111 mg/dl (65-105)
[2021-08-07] MEDS: BENZONATATE 100 MG CAPSULE PO (17:18)
[2021-08-07 17:55] LABS: Glucose Point of Care 133 mg/dl (65-105)
--- NOTE | 2021-08-07 18:26 | PM.IMPN ---
Progress Note: A&P Assessment and Plan (1) Acute respiratory failure with hypoxia and hypercapnia: Code(s): J96.01 - Acute respiratory failure with hypoxia; J96.02 - Acute respiratory failure with hypercapnia Status: Acute (2) Tobacco dependence: Code(s): F17.200 - Nicotine dependence, unspecified, uncomplicated Status: Chronic (3) Hyperglycemia due to type 2 diabetes mellitus: Qualifiers: Diabetes mellitus terminal makeup operator insulin use: with terminal makeup operator use Qualified Code(s): E11.65 - Type 2 diabetes mellitus with hyperglycemia; Z79.4 - intermediate designer (current) use of insulin Code(s): E11.65 - Type 2 diabetes mellitus with hyperglycemia Status: Acute (4) D-dimer, elevated: Code(s): R79.89 - Other specified abnormal findings of blood chemistry Status: Acute Additional Plan # acute hypoxic hypercapnic respiratory failure on to have oxygen saturation of 78% likely acute COPD exacerbation. Needed BiPAP due to tachypnea and accessory muscle use. However diffuse BiPAP and repeat ABG with improvement. Possible congestive heart failure particularly diastolic. Bilateral lower extremity edema with elevated BNP more than 5000. Started on diuresis. increased to 40 mg in the morning and 20 in the evening. Monitor renal function and adjust as needed. Did make good amount of diuresis with the current does of diuretics. COVID was negative. Influenza screen negative Chest x-ray with small right and eukth-yf-szbjljho left posterior layering pleural effusion with associated atelectasis and/or pneumonia with cardiomegaly. Echo is ordered. V/Q scan with moderate size and large matched defect in left lower lobe, small matched defect in the upper lobes of right lower lobe: Intermediate probability for PE. CT chest reviewed. Noted cardiomegaly with jiuzc-lv-oogqcetz right small left pleural effusions and multisegmental bilateral airspace disease with volume loss most consistent with atelectasis. Superimposed pneumonia not entirely excludable. Echo 08/03/2021 EF 60-65% moderately increased left ventricular wall thickness small echogenic mass attached to left coronary cusp measuring 0.28 cm x 0.93 cm suggestive of vegetation infective endocarditis. Blood culture however has been negative. Consulted Cardiology. Refining Machine Operator suggest these finding to be related to mobile calcification and not infective endocarditis. Fransisco deferred. Chest x-ray 08/04/2021 with improved aeration On vancomycin on imipenem for broad-spectrum antibiotic coverage for pneumonia along with wound infection in left heel Hypoxic respiratory failure Likely combination of COPD exacerbation as well as CHF. Further assessment for indeterminate V/Q scan with duplex ultrasound upper and lower extremities came back negative. Low likelihood of this being PE related. Will resume DVT prophylaxis dose now. # acute COPD exacerbation. No prior history of COPD however diffusely wheezing with significant history of smoking. Bronchodilators, Solu-Medrol. Continue Solu Medrol Change to p.o. prednisone # hyperglycemia related to type 2 diabetes SSI and Lantus as ordered adjust as needed. Add prandial insulin along with increase Lantus. Hyperglycemia related to steroid use. # elevated D-dimer refused contrast study. V/Q scan ordered received a dose of Lovenox. V/Q scan with intermediate probability. Cannot do CTA due to renal insufficiency. Covered with therapeutic anticoagulation for PE. Check lower extremity Doppler in upper extremity Doppler which came back negative for DVT low likelihood for this to be related to PE. Will lower down to prophylactic dose of Lovenox. # renal insufficiency unknown whether it is acute or chronic. However likely chronic kidney disease stage 3 in February her creatinine was 1.8 currently 1.7 continue to monitor # elevated troponin next set is normal will continue to monitor likely due to hypoxia # acute on chronic CHF exacerbati
[2021-08-07 20:27] LABS: Glucose Point of Care 347 mg/dl (65-105)
[2021-08-07] MEDS: ATORVASTATIN 40 MG TABLET PO (21:19)
[2021-08-07] MEDS: hydrOXYzine HCL 25 MG TABLET PO (21:19)
[2021-08-08] VITALS (27 sets, daily range): BP systolic 146–174; BP diastolic 72–88; PULSE 62–76; RESP 16–22; TEMP 36.1–36.8; O2SAT 92–100
[2021-08-08] MEDS: IPRATROPIUM BR 0.02% INH SOLN 0.5 MG/2.5 ML VIAL INHALATION ×4 (02:10→20:25)
[2021-08-08] MEDS: ALBUTEROL SULFATE NEB 2.5 MG/0.5 ML INH 5 MG INHALATION ×4 (02:10→20:25)
[2021-08-08 05:12] LABS: Hemoglobin 9.3 g/dL (12.0-15.0); Mean Corpuscular HGB Conc 29.1 g/dl (32-36); Mean Corpuscular Hemoglobin 21.9 pg (26-34); Mean Corpuscular Volume 75.5 fl (80-100); Mean Platelet Volume 10.3 fl (7.4-10.4); Platelet Count Result 278 k/mm3 (150-375); Red Blood Count 4.24 M/mm3 (4.2-5.4); Red Cell Distribution Width 20.1 % (11.5-14.5); White Blood Count 10.7 K/mm3 (4.5-10.0)
[2021-08-08 05:40] LABS: Anion Gap 10 mmol/L (8-16); Blood Urea Nitrogen 78 mg/dL (7-17); Calcium 7.6 mg/dL (8.4-10.2); Carbon Dioxide 32 mmol/L (22-30); Chloride 90 mmol/L (98-107); Estimated CRCL calculation 39 ml/min; Estimated Glomerular Filt Rate 28; Glucose 342 mg/dL (65-110); Potassium 3.2 mmol/L (3.4-5.0); Sodium 132 mmol/L (137-145)
[2021-08-08] MEDS: ENOXAPARIN 40 MG/0.4 ML SYRINGE SUB-Q (06:20)
[2021-08-08 09:16] LABS: Glucose Point of Care 266 mg/dl (65-105)
--- NOTE | 2021-08-08 10:14 | PCPTNOTE ---
Attempted physical therapy evaluation, patient refused stating I'm still sleeping ! Let me be! RN and hospitalist aware. Will continue to follow.
[2021-08-08] MEDS: ASPIRIN 81 MG CHEWABLE TABLET PO (11:27)
[2021-08-08] MEDS: QUEtiapine FUMARATE XR 50 MG TAB.ER.24H 150 MG PO (11:28)
[2021-08-08] MEDS: CHOLECALCIFEROL 1,000 UNITS TABLET 2000 UNITS PO (11:28)
[2021-08-08] MEDS: ESCITALOPRAM OXALATE 10 MG TABLET PO (11:28)
[2021-08-08] MEDS: MULTIVITAMINS /C LUTEIN (CENTRUM SILVER) TABLET *BKC 1 TAB PO (11:29)
[2021-08-08] MEDS: amLODIPine BESYLATE 5 MG TABLET 10 MG PO (11:29)
[2021-08-08] MEDS: BENZONATATE 100 MG CAPSULE PO ×2 (11:29→16:52)
[2021-08-08] MEDS: predniSONE 20 MG TABLET 40 MG PO (11:29)
[2021-08-08] MEDS: GABAPENTIN 300 MG CAPSULE PO ×2 (11:29→16:53)
[2021-08-08] MEDS: hydrALAZINE HCL 50 MG TABLET PO ×2 (11:30→16:53)
[2021-08-08] MEDS: FUROSEMIDE 40 MG TABLET PO (11:30)
[2021-08-08] MEDS: ASCORBIC ACID 500 MG TABLET PO ×2 (11:30→16:52)
[2021-08-08] MEDS: guaiFENesin 12 HR 600 MG TABCR PO ×2 (11:30→20:31)
[2021-08-08] MEDS: NICOTINE (*PBKC) 14 MG PATCH 1 PATCH TRANSDERM (11:31)
[2021-08-08] MEDS: OLANZapine 5 MG TABLET PO (11:31)
[2021-08-08] MEDS: INSULIN GLARGINE (*BKC) 100 UNITS/ML 40 UNITS SUB-Q ×2 (11:32→16:55)
[2021-08-08] MEDS: cloNIDine 0.2 MG/24 HR PATCH 1 PATCH TRANSDERM (11:35)
[2021-08-08] MEDS: COLLAGENASE OINT 30 GM TUBE 1 APPLIC TOPICAL (11:41)
[2021-08-08] MEDS: carvediloL 25 MG TABLET PO ×2 (11:42→16:53)
[2021-08-08] MEDS: INSULIN ASPART (*BKC) 100 UNITS/ML SUB-Q ×2 (11:55→16:55)
[2021-08-08] MEDS: INSULIN ASPART (*BKC) 100 UNITS/ML 14 UNITS SUB-Q ×2 (11:56→16:55)
[2021-08-08] MEDS: POTASSIUM CHLORIDE INJ 40 MEQ in SODIUM CHLORIDE 0.9% IV 500 ML 130 MEQ IVPB (12:24)
[2021-08-08 12:37] LABS: Glucose Point of Care 246 mg/dl (65-105)
--- NOTE | 2021-08-08 15:49 | PM.IMPN ---
Progress Note: A&P Assessment and Plan (1) Acute respiratory failure with hypoxia and hypercapnia: Code(s): J96.01 - Acute respiratory failure with hypoxia; J96.02 - Acute respiratory failure with hypercapnia Status: Acute (2) Tobacco dependence: Code(s): F17.200 - Nicotine dependence, unspecified, uncomplicated Status: Chronic (3) Hyperglycemia due to type 2 diabetes mellitus: Qualifiers: Diabetes mellitus medical coding instructor insulin use: with medical coding instructor use Qualified Code(s): E11.65 - Type 2 diabetes mellitus with hyperglycemia; Z79.4 - roller inspector (current) use of insulin Code(s): E11.65 - Type 2 diabetes mellitus with hyperglycemia Status: Acute (4) D-dimer, elevated: Code(s): R79.89 - Other specified abnormal findings of blood chemistry Status: Acute Additional Plan # acute hypoxic hypercapnic respiratory failure on to have oxygen saturation of 78% likely acute COPD exacerbation. Needed BiPAP due to tachypnea and accessory muscle use. However diffuse BiPAP and repeat ABG with improvement. Possible congestive heart failure particularly diastolic. Bilateral lower extremity edema with elevated BNP more than 5000. Started on diuresis. increased to 40 mg in the morning and 20 in the evening. Monitor renal function and adjust as needed. Did make good amount of diuresis with the current does of diuretics. COVID was negative. Influenza screen negative Chest x-ray with small right and pjvfe-jt-rjzfuwzn left posterior layering pleural effusion with associated atelectasis and/or pneumonia with cardiomegaly. Echo is ordered. V/Q scan with moderate size and large matched defect in left lower lobe, small matched defect in the upper lobes of right lower lobe: Intermediate probability for PE. CT chest reviewed. Noted cardiomegaly with bledr-up-ugzqqktr right small left pleural effusions and multisegmental bilateral airspace disease with volume loss most consistent with atelectasis. Superimposed pneumonia not entirely excludable. Echo 08/03/2021 EF 60-65% moderately increased left ventricular wall thickness small echogenic mass attached to left coronary cusp measuring 0.28 cm x 0.93 cm suggestive of vegetation infective endocarditis. Blood culture however has been negative. Consulted Cardiology. Supervisor Opening And Picking suggest these finding to be related to mobile calcification and not infective endocarditis. Fransisco deferred. Chest x-ray 08/04/2021 with improved aeration On vancomycin on imipenem for broad-spectrum antibiotic coverage for pneumonia along with wound infection in left heel Hypoxic respiratory failure Likely combination of COPD exacerbation as well as CHF. Further assessment for indeterminate V/Q scan with duplex ultrasound upper and lower extremities came back negative. Low likelihood of this being PE related. Will resume DVT prophylaxis dose now. # acute COPD exacerbation. No prior history of COPD however diffusely wheezing with significant history of smoking. Bronchodilators, Solu-Medrol. Continue Solu Medrol Change to p.o. prednisone # hyperglycemia related to type 2 diabetes SSI and Lantus as ordered adjust as needed. Add prandial insulin along with increase Lantus. Hyperglycemia related to steroid use. # elevated D-dimer refused contrast study. V/Q scan ordered received a dose of Lovenox. V/Q scan with intermediate probability. Cannot do CTA due to renal insufficiency. Covered with therapeutic anticoagulation for PE. Check lower extremity Doppler in upper extremity Doppler which came back negative for DVT low likelihood for this to be related to PE. Will lower down to prophylactic dose of Lovenox. # renal insufficiency unknown whether it is acute or chronic. However likely chronic kidney disease stage 3 in February her creatinine was 1.8 currently 1.7 continue to monitor # elevated troponin next set is normal will continue to monitor likely due to hypoxia # acute on chronic CHF exacerbati
[2021-08-08 16:51] LABS: Glucose Point of Care 186 mg/dl (65-105)
--- NOTE | 2021-08-08 20:15 | PC.NURSE ---
Pt received from IMU, oriented to unit, report received from [facility].
--- NOTE | 2021-08-08 20:22 | PC.NURSE ---
patient transferred to edical at 2018. report given to melina ceballos rn at 0800.
[2021-08-08] MEDS: ATORVASTATIN 40 MG TABLET PO (20:31)
[2021-08-08] MEDS: hydrOXYzine HCL 25 MG TABLET PO (20:31)
[2021-08-08] MEDS: ACETAMINOPHEN 325 MG TABLET 650 MG PO (20:46)
[2021-08-08 21:31] LABS: Glucose Point of Care 266 mg/dl (65-105)
--- NOTE | 2021-08-08 22:15 | PCRCNOTE ---
Pt extremely agitated and refusing BiPAP. Will try again later in the evening after nurse has given her meds.
[2021-08-08] MEDS: ALPRAZolam (*CRX) 0.25 MG TABLET PO (22:34)
[2021-08-09] VITALS (13 sets, daily range): BP systolic 145–177; BP diastolic 66–85; PULSE 61–77; RESP 16–118; TEMP 36.3–36.6; O2SAT 94–97
[2021-08-09] MEDS: ALBUTEROL SULFATE NEB 2.5 MG/0.5 ML INH 5 MG INHALATION ×2 (01:57→09:40)
[2021-08-09] MEDS: IPRATROPIUM BR 0.02% INH SOLN 0.5 MG/2.5 ML VIAL INHALATION ×2 (01:57→09:40)
[2021-08-09] MEDS: ENOXAPARIN 40 MG/0.4 ML SYRINGE SUB-Q (06:04)
[2021-08-09 07:31] LABS: Glucose Point of Care 174 mg/dl (65-105)
[2021-08-09] MEDS: OLANZapine 5 MG TABLET PO (08:22)
[2021-08-09] MEDS: carvediloL 25 MG TABLET PO (08:23)
[2021-08-09] MEDS: BENZONATATE 100 MG CAPSULE PO ×2 (08:23→12:04)
[2021-08-09] MEDS: ASCORBIC ACID 500 MG TABLET PO (08:23)
[2021-08-09] MEDS: ESCITALOPRAM OXALATE 10 MG TABLET PO (08:23)
[2021-08-09] MEDS: MULTIVITAMINS /C LUTEIN (CENTRUM SILVER) TABLET *BKC 1 TAB PO (08:24)
[2021-08-09] MEDS: amLODIPine BESYLATE 5 MG TABLET 10 MG PO (08:24)
[2021-08-09] MEDS: predniSONE 20 MG TABLET 40 MG PO (08:24)
[2021-08-09] MEDS: CHOLECALCIFEROL 1,000 UNITS TABLET 2000 UNITS PO (08:24)
[2021-08-09] MEDS: hydrALAZINE HCL 50 MG TABLET PO ×2 (08:24→12:04)
[2021-08-09] MEDS: GABAPENTIN 300 MG CAPSULE PO ×2 (08:25→12:04)
[2021-08-09] MEDS: QUEtiapine FUMARATE XR 50 MG TAB.ER.24H 150 MG PO (08:25)
[2021-08-09] MEDS: FUROSEMIDE 40 MG TABLET PO (08:25)
[2021-08-09] MEDS: guaiFENesin 12 HR 600 MG TABCR PO (08:26)
[2021-08-09] MEDS: cloNIDine 0.2 MG/24 HR PATCH 1 PATCH TRANSDERM (08:26)
[2021-08-09] MEDS: ASPIRIN 81 MG CHEWABLE TABLET PO (08:29)
[2021-08-09] MEDS: INSULIN GLARGINE (*BKC) 100 UNITS/ML 40 UNITS SUB-Q (08:30)
[2021-08-09] MEDS: INSULIN ASPART (*BKC) 100 UNITS/ML 14 UNITS SUB-Q ×2 (08:30→11:53)
[2021-08-09 08:33] LABS: Hemoglobin 10.5 g/dL (12.0-15.0); Mean Corpuscular HGB Conc 29.2 g/dl (32-36); Mean Corpuscular Volume 75.3 fl (80-100); Mean Platelet Volume 9.5 fl (7.4-10.4); Platelet Count Result 286 k/mm3 (150-375); Red Blood Count 4.78 M/mm3 (4.2-5.4); Red Cell Distribution Width 20.4 % (11.5-14.5); White Blood Count 11.8 K/mm3 (4.5-10.0)
[2021-08-09] MEDS: COLLAGENASE OINT 30 GM TUBE 1 APPLIC TOPICAL (08:41)
[2021-08-09 08:43] LABS: Anion Gap 9 mmol/L (8-16); Blood Urea Nitrogen 74 mg/dL (7-17); Calcium 8.2 mg/dL (8.4-10.2); Carbon Dioxide 37 mmol/L (22-30); Chloride 91 mmol/L (98-107); Estimated CRCL calculation 42 ml/min; Estimated Glomerular Filt Rate 31; Glucose 186 mg/dL (65-110); Sodium 137 mmol/L (137-145)
--- NOTE | 2021-08-09 09:03 | PM.DS ---
DS: Admitting Diagnosis Discharge Date 08/09/2021 Admitting Diagnosis Shortness of breath DS: Discharge Diagnosis Discharge Diagnosis (1) Acute respiratory failure with hypoxia and hypercapnia: Code(s): J96.01 - Acute respiratory failure with hypoxia; J96.02 - Acute respiratory failure with hypercapnia Status: Acute (2) Tobacco dependence: Code(s): F17.200 - Nicotine dependence, unspecified, uncomplicated Status: Chronic (3) Hyperglycemia due to type 2 diabetes mellitus: Qualifiers: Diabetes mellitus adjunct faculty for medical terminology insulin use: with long-term use Qualified Code(s): E11.65 - Type 2 diabetes mellitus with hyperglycemia; Z79.4 - medical terminologist (current) use of insulin Code(s): E11.65 - Type 2 diabetes mellitus with hyperglycemia Status: Acute (4) D-dimer, elevated: Code(s): R79.89 - Other specified abnormal findings of blood chemistry Status: Acute DS: Summary Hospital Course Reason for hospitalization: Chief Complaint: Shortness of breath Narrative: 51-year-old female with past medical history of intellectual disability, psychiatric illness, poorly controlled diabetes mellitus, hypertension, hepatitis-C, colostomy and diabetic foot wound who presented to the ER from [facility] [place] due to shortness of breath. Patient is uncooperative with providing much history and tells me multiple times to leave her alone so that she can sleep. Evidently at the [facility] the patient was on a portable oxygen tank of 3 L nasal cannula satting 78%. The patient is not usually on a oxygen at home. According to the EMS run report the patient started having sudden shortness of breath 20 minutes prior to their arrival. The patient does smoke every day and reports about 1/4 pack per day use. Patient received a albuterol treatment in route and was placed on 8 L nasal cannula with improvement in oxygen saturations up to 91%. The patient reports that she does not usually wheeze and denies a history of COPD. Unfortunately patient is not the best historian. Patient is oriented to person in fact that she is in the hospital. She knows the month is July but thinks the years 2001. She denies any chest pain or significant cough. She complains constantly of being cold. She has not been noted have any rigors and has been afebrile since presentation. COVID PCR performed in the ER was negative. She is chronically incontinent of urine. She has known decubitus/diabetic foot ulcers to bilateral heels the left which is larger than the right. She complains of foot pain with palpation of her feet. She denies any nausea or vomiting. Interval history: HPI:51-year-old female with past medical history of intellectual disability, psychiatric illness, poorly controlled diabetes mellitus, hypertension, hepatitis-C, colostomy and diabetic foot wound who presented to the ER from [facility] [place] due to shortness of breath. Patient is uncooperative with providing much history and tells me multiple times to leave her alone so that she can sleep. Evidently at the [facility] the patient was on a portable oxygen tank of 3 L nasal cannula satting 78%. The patient is not usually on a oxygen at home. According to the EMS run report the patient started having sudden shortness of breath 20 minutes prior to their arrival. The patient does smoke every day and reports about 1/4 pack per day use. Patient received a albuterol treatment in route and was placed on 8 L nasal cannula with improvement in oxygen saturations up to 91%. The patient reports that she does not usually wheeze and denies a history of COPD. Unfortunately patient is not the best historian. Patient is oriented to person in fact that she is in the hospital. She knows the month is July but thinks the years 2001. She denies any chest pain or significant cough. She complains constantly of being cold. She has not been noted have any rigors and has been afebrile since presen
--- NOTE | 2021-08-09 10:19 | PCOTNOTE ---
Attempted to see patient this am, however patient sleeping with blanket over head upon entering. Began introduction while attempting to pull down cover, however patient pulled blanket back over head stating, No!
--- NOTE | 2021-08-09 10:34 | PCPTNOTE ---
Attempted physical therapy evaluation, Per RN patient getting ostomy bag changed. RN request therapist to return later.
--- NOTE | 2021-08-09 11:09 | PCOTNOTE ---
Attempted to see patient this am, however patient declined stating, I need to have my edison first. I don't have no strength or energy, and I need to eat my edison.
[2021-08-09 11:16] LABS: EDCOVIDSCREEN Negative (Negative)
[2021-08-09 11:29] LABS: Glucose Point of Care 173 mg/dl (65-105)
== END 2021-08-09 12:40 | DRG 133 ==
LOC: ANHED 02:05 → ANHICU 05:59 → ANHIMU 08-05 10:32 → ANH2MED 08-09 09:03 → ANHICU 08-12 17:21 → ANHIMU 08-12 17:21
PROVIDERS: Internal Medicine; Admitting Provider Internal Medicine; Emergency Provider Emergency Medicine; PCP Internal Medicine; Visit Provider Family Medicine
DX: J96.02 Acute respiratory failure with hypercapnia (principal); J96.01 Acute respiratory failure with hypoxia; J44.1 Chronic obstructive pulmonary disease with (acute) exacerbation; I13.0 Hypertensive heart and chronic kidney disease with heart failure and stage 1 through stage 4 chronic kidney disease, or unspecified chronic kidney disease; I50.33 Acute on chronic diastolic (congestive) heart failure; L89.629 Pressure ulcer of left heel, unspecified stage; L89.619 Pressure ulcer of right heel, unspecified stage; N18.30 Chronic kidney disease, stage 3 unspecified; Z20.822 Contact with and (suspected) exposure to COVID-19; D63.1 Anemia in chronic kidney disease; E11.22 Type 2 diabetes mellitus with diabetic chronic kidney disease; E11.621 Type 2 diabetes mellitus with foot ulcer; E11.40 Type 2 diabetes mellitus with diabetic neuropathy, unspecified; E11.65 Type 2 diabetes mellitus with hyperglycemia; E66.01 Morbid (severe) obesity due to excess calories; F17.210 Nicotine dependence, cigarettes, uncomplicated; G47.33 Obstructive sleep apnea (adult) (pediatric); F79 Unspecified intellectual disabilities; F99 Mental disorder, not otherwise specified; F32.A Depression, unspecified; H91.90 Unspecified hearing loss, unspecified ear; N39.498 Other specified urinary incontinence; R77.8 Other specified abnormalities of plasma proteins; R60.0 Localized edema; R93.1 Abnormal findings on diagnostic imaging of heart and coronary circulation; R79.89 Other specified abnormal findings of blood chemistry; Z28.21 Immunization not carried out because of patient refusal; Z79.4 Long term (current) use of insulin; Z90.710 Acquired absence of both cervix and uterus; Z68.39 Body mass index [BMI] 39.0-39.9, adult; Z86.19 Personal history of other infectious and parasitic diseases; Z93.3 Colostomy status; Z79.82 Long term (current) use of aspirin
CPT/HCPCS: 36415; 36600; 71045; 71250; 78580; 80048; 80053; 80076; 80202; 81001; 82375; 82805; 82948; 83036; 83050; 83735; 83880; 84484; 85025; 85027; 85380; 85610; 85730; 87040; 87070; 87147; 87205; 87426; 87804; 93005; 93970; 94002; 94003; 94640; 96374; 97167; 99291; A9270; A9540; C8929; C9803; J0743; J1650; J1815; J1940; J2920; J2930; J3370; J3480; J7040; J7512; Q9957; U0003; U0005

== ENCOUNTER 2021-09-03 07:27 | Emergency (ER) | payer OTHER, SELFPAY ==
--- NOTE | ~2021-09-03 | CT_ITS ---
EXAMINATION: CT brain wo con DATE: 09/03/2021 09:13 INDICATION: Altered mental status and slurred speech. TECHNIQUE: Computed tomography (CT) of the head was performed without intravenous contrast. Sagittal and coronal reconstructions were performed. The mA was adjusted according to patient size. Iterative reconstruction technique was employed. The dose-length product was 832.33 mGy-cm. COMPARISON: 12/20/2019 FINDINGS: No acute intracranial hemorrhage, acute infarction or abnormal extra axial fluid collection. Progress ion of now mild to moderate scattered white matter hypoattenuation consistent with chronic small vess el ischemic disease. Ventricles are normal and symmetric. No mass/mass effect. Right mastoid effusion and left otomastoiditis effusion. The orbitsand paranasal sinuses are normal. IMPRESSION: 1. Interval progression of now mild to moderate scattered white matter hypoattenuation consistent wit h chronic small vessel ischemic disease. 2. Right mastoid and left mastoid effusions. Reviewed, dictated and finalized at location B. IMPRESSION: 1. Interval progression of now mild to moderate scattered white matter hypoatte nuation consistent with chronic small vessel ischemic disease. 2. Right mastoid and left mastoid effusions.
[2021-09-03 07:27] VITALS: BP 158/94; PULSE 78; RESP 12; TEMP 36.7; O2SAT 98
[2021-09-03 07:34] LABS: Glucose Point of Care 333 mg/dl (65-105)
--- NOTE | 2021-09-03 07:36 | ECG_ITS ---
Measurements Intervals [place] Rate: 77 P: 48 MA: 209 QRS: -41 QRSD: 103 T: 29 QT: 405 QTc: 458 Interpretive Statements SINUS RHYTHM POSSIBLE LEFT ATRIAL ENLARGEMENT [-0.1mV P-WAVE IN V1/V2] LEFT AXIS DEVIATION [QRS AXIS < -30] LOW QRS VOLTAGE IN PRECORDIAL LEADS POOR R WAVE PROGRESSION, POSSIBLE OLD ANTERIOR TX COMPARED TO ECG 08/03/2021 01:51:45 NO SIGNIFICANT CHANGES Electronically Signed On 09-04-2021 13:27:14 CDT by Gaby Arreaga M.D.
[2021-09-03 08:09] LABS: Basophils Absolute Auto 0.1 K/mm3 (0.0-0.1); Basophils Percent Auto 0.8 % (0.2-1.2); Eosinophils Absolute Auto 0.4 K/mm3 (0-0.3); Eosinophils Percent Auto 3.5 % (0-4.4); Hematocrit 37.4 % (37.0-47.0); Hemoglobin 11.2 g/dL (12.0-15.0); Immature Granulocyte Absolute 0.17 K/mm3 (0.00-0.031); Immature Granulocyte Percent A 1.6 % (0-0.5); Lymphocytes Absolute Auto 2.83 K/mm3 (0.9-3.2); Lymphocytes Percent Auto 26.2 % (18.3-44.2); Mean Corpuscular HGB Conc 29.9 g/dl (32-36); Mean Corpuscular Hemoglobin 23.3 pg (26-34); Mean Corpuscular Volume 77.8 fl (80-100); Mean Platelet Volume 10.5 fl (7.4-10.4); Monocytes Absolute Auto 0.9 K/mm3 (0.1-0.6); Monocytes Percent Auto 8.6 % (2.6-8.5); Neutrophils Absolute Auto 6.4 K/mm3 (1.3-6.7); Neutrophils Percent Auto 59.3 % (45.5-73.1); Platelet Count Result 306 k/mm3 (150-375); Red Blood Count 4.81 M/mm3 (4.2-5.4); Red Cell Distribution Width 21.3 % (11.5-14.5); White Blood Count 10.8 K/mm3 (4.5-10.0)
[2021-09-03 08:17] VITALS: BP 127/66; PULSE 76; RESP 13; O2SAT 100
[2021-09-03 08:17] LABS: Alanine Aminotransferase 21 U/L (4-35); Albumin Level 3.3 g/dL (3.5-5.1); Alkaline Phosphatase 128 U/L (38-126); Anion Gap 8 mmol/L (8-16); Aspartate Amino Transferase 37 U/L (14-36); Bilirubin,Total 0.2 mg/dL (0.2-1.3); Blood Urea Nitrogen 34 mg/dL (7-17); Calcium 7.9 mg/dL (8.4-10.2); Carbon Dioxide 23 mmol/L (22-30); Chloride 102 mmol/L (98-107); Estimated CRCL calculation 46 ml/min; Estimated Glomerular Filt Rate 31; Glucose 324 mg/dL (65-110); Potassium 3.6 mmol/L (3.4-5.0); Sodium 133 mmol/L (137-145)
[2021-09-03 08:25] LABS: Prothrombin Time 12.4 Seconds (11.1-14.7)
[2021-09-03 08:26] LABS: Partial Thromboplastin Time 29.8 SECONDS (22.3-36.8)
[2021-09-03 08:32] LABS: Add Urine Microscopic? YES; Appearance Urine Cloudy (Clear); Bacteria Urine 2+ /hpf; Bilirubin Urine Negative (Negative); Color Urine Amber (Yellow); Glucose Urine UA 1+ mg/dL (Negative); Ketones Urine Negative (Negative); Leukocyte Esterase Ur 1+ LEU/UL (Negative); Mucus Urine Moderate /lpf; Nitrate Urine Negative (Negative); Protein Urine 3+ mg/dL (Negative); RBC Urine 0-2 /hpf (0-2); Specific Grav Ur 1.018 (1.001-1.035); Squamous Epithelial Cell Urine Rare /hpf (Few); Urobilinogen Urine Negative mg/dL (<2.0); WBC Clumps Urine Present /HPF; WBC Urine >75 /hpf
[2021-09-03 08:35] LABS: Amphetamine Screen Urine Positive (Negative); Barbiturate Screen Urine Negative (Negative); Benzodiazepines Screen Urine Negative (Negative); Cannabinoid Screen Urine Negative (Negative); Cocaine Screen Urine Negative (Negative); Methadone Screen Urine Negative (Negative); Opiate Screen Urine Negative (Negative); Phencyclidine Screen Urine Negative (Negative)
[2021-09-03 08:41] LABS: Blood Urine Negative (Negative)
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
[2021-09-03 08:52] LABS: Ethanol < 10 mg/dL (<10)
[2021-09-03 09:18] VITALS: BP 158/86; PULSE 77; RESP 12; O2SAT 96
[2021-09-03] MEDS: SODIUM CHLORIDE 0.9% IV 1,000 ML 999 ML IV CONT (09:41)
[2021-09-03 10:00] VITALS: BP 142/82; RESP 18; O2SAT 94
[2021-09-03 10:03] VITALS: BP 142/82; PULSE 74; RESP 16; O2SAT 94
--- NOTE | 2021-09-03 10:16 | PC.NURSE ---
Pt dressed into clothing she arrived in, depends dry at this time. Pt has fluids infusing. Updated pt on POC. EMS called and aprox arrival time to ED is 1030 this AM.
--- NOTE | 2021-09-03 10:38 | PC.NURSE ---
BS 283
[2021-09-03 10:39] LABS: Glucose Point of Care 283 mg/dl (65-105)
== END 2021-09-03 10:41 ==
PROVIDERS: Emergency Provider Emergency Medicine; PCP Internal Medicine
DX: F15.90 Other stimulant use, unspecified, uncomplicated (principal); E11.65 Type 2 diabetes mellitus with hyperglycemia; N39.0 Urinary tract infection, site not specified; I69.328 Other speech and language deficits following cerebral infarction; E11.22 Type 2 diabetes mellitus with diabetic chronic kidney disease; I12.9 Hypertensive chronic kidney disease with stage 1 through stage 4 chronic kidney disease, or unspecified chronic kidney disease; N18.9 Chronic kidney disease, unspecified; F17.210 Nicotine dependence, cigarettes, uncomplicated; Z79.4 Long term (current) use of insulin; Z79.899 Other long term (current) drug therapy; Z79.82 Long term (current) use of aspirin
CPT/HCPCS: 36415; 51701; 70450; 80053; 80307; 81001; 82948; 85025; 85610; 85730; 87077; 87086; 87088; 87186; 93005; 96365; 99284; J0696; J7030

== ENCOUNTER 2021-10-02 13:33 | Inpatient (IN) | payer OTHER, SELFPAY ==
[2021-10-02] VITALS (13 sets, daily range): BP systolic 142–198; BP diastolic 81–111; PULSE 72–90; RESP 13–24; TEMP 36.6–37.2; O2SAT 93–99; BMI 44.5
--- NOTE | ~2021-10-02 | XR_ITS ---
EXAMINATION: XR chest 1V portable DATE: 10/02/2021 13:54 INDICATION: Shortness of breath. TECHNIQUE: A single frontal view of the chest was obtained. COMPARISON: Chest single view 08/04/2021, chest CT 08/03/2021 FINDINGS: The patient is rotated to her left. There are small pleural effusions. There are airspace o pacities in all right lung zones and in left mid and lower lung zones, worst at the lung bases and in right midlung zone. No pneumothorax. Cardiomegaly is noted. IMPRESSION: 1. Worsened diffuse lung disease, consistent with atelectasis versus pneumonia. 2. Small pleural effusions. 3. Cardiomegaly. Reviewed, dictated and finalized at location A.
--- NOTE | ~2021-10-02 | US_ITS ---
EXAMINATION:US venous doppler LE BI INDICATION:Leg edema TECHNIQUE: Multiple grayscale, color flow and Doppler images of the right and left lower extremity de ep venous systems were obtained and reviewed. COMPARISON:08/05/2021 FINDINGS: The right common femoral, superficial femoral and popliteal veins demonstrate normal respir atory variation, augmentation and compressibility. Color flow is also seen within the posterior tibi al, peroneal, greater saphenous and profunda veins. The left common femoral, profunda femoral and fem oral veins are patent with normal flow, compressibility and augmentation. The remainder of the left l ower extremity veins are not visualized adequately for evaluation. IMPRESSION: 1: No lower extremity deep venous thrombosis. Limited evaluation of the left lower extremity veins. Reviewed, dictated and finalized at location A. IMPRESSION: 1: No lower extremity deep venous thrombosis. Limited evaluation of the left l ower extremity veins.
--- NOTE | ~2021-10-02 | XR_ITS ---
XR chest 1V portable DATE: 10/06/2021 09:55 INDICATION: Pneumonia TECHNIQUE: Portable supine AP view on 10/06/2021 0949 hours COMPARISON: 10/02/2021 portable AP chest at 1348 hours FINDINGS: There is persistent anterior segment right upper lobe and prominent right and to a lesser e xtent left lower lobe infiltrate. Mild pleural effusions. Cardiomegaly. Aortic arch calcification. Diffuse osteopenia. IMPRESSION: Persistent extensive bilateral pulmonary infiltrates, right greater than left Cardiomegaly, aortic atherosclerosis Little interval change since 10/02/2021 Reviewed, dictated and finalized at location A.
--- NOTE | 2021-10-02 13:37 | ECG_ITS ---
Measurements Intervals [place] Rate: 74 P: 82 MS: 180 QRS: 242 QRSD: 86 T: 15 QT: 372 QTc: 415 Interpretive Statements SINUS RHYTHM RIGHT AXIS DEVIATION LOW QRS VOLTAGE- DIFFUSE LEADS ANTEROSEPTAL INFARCT, AGE INDETERMINATE HIGH LATERAL INFARCT, AGE INDETERMINATE BASELINE ARTIFACT- I, II, III, AVL, V1-V2, V4 ABNORMAL ECG Electronically Signed On 10-02-2021 13:49:09 CDT by Kike Barrow D.O.
[2021-10-02 13:53] LABS: Alveolar/Arterial O2 Gradient 401.4 mmHg; Base Excess ABG -2.6 mEq/l (+/-2.0); Fractional Inspired Oxygen 75 %; HCO3 ABG 24.6 mEq/l (22.0-26.0); Oxygen Content ABG 14.3 %vol (16.0-22.0); Oxygen Saturation ABG 93.2 % (95.0-100.0); Oxyhemoglobin 92.6 % THb (90.0-100.0); PCO2 ABG 54.4 mmHg (35.0-45.0); PO2 ABG 75.6 mmHg (80.0-100.0); PO2 FiO2 Ratio Arterial Blood 1.01 %; Total Hemoglobin 10.9 g/dL (12.0-18.0)
[2021-10-02 13:55] LABS: Device OTHER DEVICE; Modified Allen's Test Pass; Site Drawn LEFT RADIAL; pH ABG 7.274 (7.350-7.450)
[2021-10-02 14:05] LABS: Basophils Absolute Auto 0.2 K/mm3 (0.0-0.1); Basophils Percent Auto 1.3 % (0.2-1.2); Eosinophils Absolute Auto 0.4 K/mm3 (0-0.3); Eosinophils Percent Auto 3.2 % (0-4.4); Hematocrit 36.6 % (37.0-47.0); Hemoglobin 10.1 g/dL (12.0-15.0); Immature Granulocyte Absolute 0.11 K/mm3 (0.00-0.031); Lymphocytes Absolute Auto 2.17 K/mm3 (0.9-3.2); Lymphocytes Percent Auto 19.2 % (18.3-44.2); Mean Corpuscular HGB Conc 27.6 g/dl (32-36); Mean Corpuscular Hemoglobin 22.8 pg (26-34); Mean Corpuscular Volume 82.6 fl (80-100); Mean Platelet Volume 9.9 fl (7.4-10.4); Monocytes Absolute Auto 1.1 K/mm3 (0.1-0.6); Monocytes Percent Auto 10.1 % (2.6-8.5); Neutrophils Absolute Auto 7.4 K/mm3 (1.3-6.7); Neutrophils Percent Auto 65.2 % (45.5-73.1); Nucleated Red Blood Cells Absolute Auto 0.1 K/mm3 (0.0-0.012); Nucleated Red Blood Cells Perc 0.4 % (0.0-0.2); Platelet Count Result 280 k/mm3 (150-375); Red Blood Count 4.43 M/mm3 (4.2-5.4); Red Cell Distribution Width 21.7 % (11.5-14.5); White Blood Count 11.3 K/mm3 (4.5-10.0)
[2021-10-02 14:16] LABS: Alanine Aminotransferase 22 U/L (6-35); Albumin Level 3.7 g/dL (3.5-5.1); Alkaline Phosphatase 127 U/L (38-126); Anion Gap 6 mmol/L (8-16); Aspartate Amino Transferase 31 U/L (14-36); Bilirubin,Total 0.2 mg/dL (0.2-1.3); Blood Urea Nitrogen 33 mg/dL (7-17); Calcium 8.2 mg/dL (8.4-10.2); Carbon Dioxide 26 mmol/L (22-30); Chloride 104 mmol/L (98-107); Estimated CRCL calculation 50 ml/min; Estimated Glomerular Filt Rate 36; Glucose 152 mg/dL (65-110); Potassium 4.6 mmol/L (3.4-5.0); Sodium 136 mmol/L (137-145)
[2021-10-02 14:28] LABS: NT Pro B Type Natriuretic Pept 1570 pg/mL (5-100); Troponin I < 0.012 ng/mL (0.000-0.034)
[2021-10-02 14:35] LABS: Prothrombin Time 12.6 Seconds (11.1-14.7)
[2021-10-02 14:39] LABS: Platelet Estimate Adequate (Adequate)
[2021-10-02 14:40] LABS: Anisocytosis 3+ (NORMAL); Hypochromasia 1+ (NORMAL)
--- NOTE | 2021-10-02 16:14 | ED.SOB ---
HPI - SOB/Dyspnea General Chief Complaint: Shortness of Breath/Dyspnea Stated Complaint: sob Source: patient and EMS Mode of arrival: EMS Limitations: no limitations History of Present Illness HPI Narrative: 51-year-old with a history of COPD, diabetes [facility] was brought in with complaints of shortness of breath as per the paramedics patient was found to be ashy and urias with SPO2 of 60%. Patient refused nebulizer treatment at retirement she was placed on 4 L which brought her SPO2 to 90s patient was later transferred to the ER with an continuous neb treatment and also received Decadron 10 mg IV by paramedics. Patient presently denies any chest pain, cough or fever or chills. MD elicited complaint: shortness of breath Pertinent past history: COPD Onset (ago): day(s) (1) Timing: constant Severity: moderate Exacerbating factors: nothing Relieving factors: oxygen and bronchodilators Known history of: COPD Associated symptoms: denies other symptoms Related Data Home oxygen amount: delivered by CPAP Home Medications Medication Instructions Recorded Confirmed Imodium A-D 2 mg PO PRN PRN Diarrhea 08/03/21 08/03/21 acetaminophen 650 mg PO Q4H PRN pain/fever 08/03/21 08/03/21 ascorbic acid (vitamin C) 500 mg 500 mg PO BID 08/03/21 08/03/21 tablet aspirin 81 mg PO DAILY 08/03/21 08/03/21 atorvastatin 40 mg tablet 40 mg PO HS 08/03/21 08/03/21 calcium alginate 2 X 2 bandage 08/03/21 08/03/21 (Ankit) carvedilol 25 mg tablet 25 mg PO BID 08/03/21 08/03/21 cholecalciferol (vitamin D3) 25 50 mcg PO DAILY 08/03/21 08/03/21 mcg (1,000 unit) tablet clonidine 0.2 mg/24 hr weekly 1 patch transdermal Q24H 08/03/21 08/03/21 transdermal patch collagenase clostridium histo. 250 1 applic topical DAILY 08/03/21 08/03/21 unit/gram topical ointment escitalopram oxalate 10 mg tablet 10 mg PO DAILY 08/03/21 08/03/21 gabapentin 300 mg capsule 300 mg PO TID 08/03/21 08/03/21 hydralazine 50 mg tablet 50 mg PO Q12H 08/03/21 08/03/21 hydroxyzine HCl 25 mg tablet 25 mg PO HS 08/03/21 08/03/21 insulin lispro 100 unit/mL 6 unit subcut TIDWMEAL 08/03/21 08/03/21 subcutaneous solution (Humalog U-100 Insulin) multivit with minerals-iron 18 1 tablet PO DAILY 08/03/21 08/03/21 mg-folic ac 400 mcg-vit K 25 mcg tablet (Adults Multivitamin) olanzapine 5 mg tablet 5 mg PO DAILY 08/03/21 08/03/21 quetiapine 150 mg tablet,extended 150 mg PO DAILY 08/03/21 08/03/21 release 24 hr silver-sodium alginate 5 gram 1 ea topical DAILY 08/03/21 08/03/21 topical powder Allergies Allergy/AdvReac Type Severity Reaction Status Date / Time citalopram AdvReac Unknown Verified 10/02/21 13:52 varenicline [From Chantix] AdvReac Unknown Verified 10/02/21 13:52 Review of Systems Review of Systems: All systems reviewed & are unremarkable except as noted in HPI and below ROS unobtainable: Yes unobtainable due to endotracheal tube Constitutional: Constitutional: Reports no additional constitutional complaints Eyes: Eyes: Reports no additional eye complaints ENT: Reports system reviewed and no additional complaints, except as documented Cardiovascular: Cardiovascular: Reports no additional cardiovascular complaints Respiratory: Respiratory: Reports as per HPI Gastrointestinal: Gastrointestinal: Reports no additional gastrointestinal complaints Musculoskeletal: Musculoskeletal: Reports no additional musculoskeletal complaints Neurologic: Reports system reviewed and no additional complaints, except as documented Endocrine: Endocrine: Reports no additional endocrine complaints Allergic/Immunologic: Allergic/Immunologic: Reports no additional allergic/immunologic complaints [facility] Past Medical History Medical History Chronic kidney disease Diabetic neuropathy Gestational diabetes Hearing loss History of hypertension HTN (hypertension) with goal to be dete
[2021-10-02 17:14] LABS: Influenza A QL RT-PCR Negative (Negative); Influenza B QL RT-PCR Negative (Negative); SARS-CoV-2 RNA PCR Negative
[2021-10-02] MEDS: methylPREDNISolone SOD SUCC 125 MG VIAL 60 MG IV PUSH ×2 (17:43→22:34)
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
--- NOTE | 2021-10-02 18:00 | PC.NURSE ---
This patient, Josy Perez, was admitted to IMU Room 203-01. Patient/family oriented to hospital policies and general routines including ID bracelet, bed and alarms, visiting hours, pain management, procedures, bathroom and other care routines, personal items, smoking policy, room service/diet, and visiting hours. Information on how to activate the Rapid Response Team has been discussed. Patient/Family are encouraged to report perceived risks to care and to ask questions if they do not understand what they are told or what they should do.
[2021-10-02 18:29] LABS: Glucose Point of Care 179 mg/dl (65-105)
[2021-10-02 20:47] LABS: Glucose Point of Care 296 mg/dl (65-105)
[2021-10-02 21:02] LABS: Alveolar/Arterial O2 Gradient 235.3 mmHg; Carboxyhemoglobin 0.3 % THb (0-2.0); Fractional Inspired Oxygen 50 %; HCO3 ABG 24.6 mEq/l (22.0-26.0); Methemoglobin ABG 0.4 %THb (0-1.5); Oxygen Content ABG 14.5 %vol (16.0-22.0); Oxygen Saturation ABG 90.8 % (95.0-100.0); PCO2 ABG 49.9 mmHg (35.0-45.0); PO2 ABG 65.1 mmHg (80.0-100.0); Reduced Hemoglobin 8.3 %THb (0-5.0); Total Hemoglobin 11.3 g/dL (12.0-18.0)
[2021-10-02 21:04] LABS: Device NON-INVASIVE VENT; Modified Allen's Test Pass; Non-Invasive Expiratory Pressure 7 CMH2O; Non-Invasive Inspiratory Pressure 12 CMH2O; Non-Invasive Vent Rate 4 /MIN; Site Drawn RIGHT RADIAL
[2021-10-02] MEDS: hydrALAZINE HCL 50 MG TABLET PO (22:33)
[2021-10-02] MEDS: ATORVASTATIN 40 MG TABLET PO (22:33)
[2021-10-02] MEDS: carvediloL 25 MG TABLET PO (22:34)
[2021-10-02] MEDS: hydrOXYzine HCL 25 MG TABLET PO (22:34)
[2021-10-02] MEDS: INSULIN GLARGINE (*BKC) 100 UNITS/ML 40 UNITS SUB-Q (22:44)
[2021-10-03] VITALS (29 sets, daily range): BP systolic 134–206; BP diastolic 82–101; PULSE 71–100; RESP 14–27; TEMP 36.2–37.1; O2SAT 91–97; BMI 44.6
--- NOTE | 2021-10-03 01:11 | PCRCNOTE ---
Pt is constantly taking off BiPAP mask and pulse oximeter. She states that she can't sleep when they are on and that she does not need them. Pt has to be reminded of the importance of keeping them on.
[2021-10-03] MEDS: ALBUTEROL SULFATE NEB 2.5 MG/0.5 ML INH 5 MG INHALATION ×4 (02:15→20:30)
[2021-10-03] MEDS: IPRATROPIUM BR 0.02% INH SOLN 0.5 MG/2.5 ML VIAL INHALATION ×4 (02:15→20:30)
[2021-10-03 05:00] LABS: Alveolar/Arterial O2 Gradient 260.5 mmHg; Base Excess ABG -0.6 mEq/l (+/-2.0); Carboxyhemoglobin 0.3 % THb (0-2.0); Fractional Inspired Oxygen 55 %; HCO3 ABG 25.6 mEq/l (22.0-26.0); Methemoglobin ABG 0.4 %THb (0-1.5); Oxygen Saturation ABG 94.6 % (95.0-100.0); Oxyhemoglobin 93.7 % THb (90.0-100.0); PCO2 ABG 48.8 mmHg (35.0-45.0); PO2 ABG 77.4 mmHg (80.0-100.0); PO2 FiO2 Ratio Arterial Blood 1.41 %; Reduced Hemoglobin 5.6 %THb (0-5.0); Total Hemoglobin 11.3 g/dL (12.0-18.0); pH ABG 7.337 (7.350-7.450)
[2021-10-03 05:02] LABS: Device NON-INVASIVE VENT; Modified Allen's Test Pass; Site Drawn LEFT RADIAL
[2021-10-03 05:03] LABS: Non-Invasive Expiratory Pressure 8 CMH2O; Non-Invasive Inspiratory Pressure 14 CMH2O; Non-Invasive Vent Rate 14 /MIN
[2021-10-03 05:27] LABS: Anion Gap 8 mmol/L (8-16); Blood Urea Nitrogen 36 mg/dL (7-17); Calcium 8.1 mg/dL (8.4-10.2); Carbon Dioxide 22 mmol/L (22-30); Chloride 106 mmol/L (98-107); Estimated CRCL calculation 58 ml/min; Estimated Glomerular Filt Rate 39; Glucose 271 mg/dL (65-110); Magnesium 2.3 mg/dL (1.6-2.3); Potassium 4.8 mmol/L (3.4-5.0); Sodium 136 mmol/L (137-145)
[2021-10-03] MEDS: methylPREDNISolone SOD SUCC 125 MG VIAL 60 MG IV PUSH ×2 (05:52→12:57)
--- NOTE | 2021-10-03 08:00 | P.PNIM_ITS ---
Progress Note: A&P Assessment and Plan (1) Acute on chronic respiratory failure with hypoxia and hypercapnia: Code(s): J96.21 - Acute and chronic respiratory failure with hypoxia; J96.22 - Acute and chronic respiratory failure with hypercapnia Status: Acute Assessment and Plan: * Secondary to COPD exacerbation, possible underlying pneumonia, continued tobacco use * Chest xray: ?Worsened diffuse lung disease, consistent with atelectasis versus pneumonia. * She was refusing nebulizers at [place] thus there may be a component of noncompliance. * Continue home albuterol and Atrovent neb treatments * Continue BiPAP at 14/8 rate 14 @45% * ABG from this am pH 7.337, CO2 48.8, O2 77.4, Sat 94.6 * Sputum culture ordered and pending * Solumedrol 60mg IV Q6Hr decrease to 40mg IV Q12 * Still remains course (2) Abnormal chest x-ray: Code(s): R93.89 - Abnormal findings on diagnostic imaging of other specified body structures Status: Acute Assessment and Plan: * Chest x-ray shows worsen diffuse lung disease consistent with atelectasis v ersus pneumonia. * She will be started on antibiotics given her increased shortness of breath, cough, and wheezing. * Continue azithromycin and ceftriaxone * SARS-CoV-2 by PCR was negative. (3) Chronic kidney disease, stage 3: Code(s): N18.30 - Chronic kidney disease, stage 3 unspecified Status: Acute Assessment and Plan: * BUN/Cr 36/1.40 * Creatinine appears to be at baseline * Continue to trend * Avoid nephrotoxic medications (4) Hypertension: Code(s): I10 - Essential (primary) hypertension Status: Acute Assessment and Plan: * Current BP * Blood pressures look to have been high since admission * Continue home antihypertensives * trend BP * Adjust therapy as indicated (5) Insulin dependent type 2 diabetes mellitus: Code(s): E11.9 - Type 2 diabetes mellitus without complications; Z79.4 - [facility] (current) use of insulin Status: Acute Assessment and Plan: * Current Glucose 271 * Continue basal insulin. * Initiate sliding scale insulin * Accu-Cheks * hypoglycemic protocol. (6) COPD exacerbation: Code(s): J44.1 - Chronic obstructive pulmonary disease with (acute) exacerbation Status: Acute Assessment and Plan: Scheduled bronchodilators. Continue maintenance inhalers. Solu-Medrol 6 the q.6 hours. Chest xray in the am Sputum culture ordered Time Spent With Patient Time with patient: 25 - 35 minutes Subjective Date/time seen: 10/03/21 08:00 Patient seemed to be very did drowsy today she stated that she was just very tired. She did not really communicate much or answer any questions. Complete review of systems unable to be obtained due to patient's mental status. ABG from 5:00 a.m. this morning did show a slight elevation of CO2. Patient was still on BiPAP. Re-evaluated patient at 1500. Patient was awake and off bipap. She did not have any complaints at this time. She was also on room air sating about 90%. S he denied any chest pain, shortness of breath, nausea, vomiting, diarrhea, constipation. 10/02/21? 17:45 This is a 51-year-old female with history of stroke, congestive heart failure, hypertension, COPD, sleep apnea, and bipolar disorder who presented to the emergency department via EMS from [facility] for evaluation of shortness of breath. She is currently o
--- NOTE | 2021-10-03 08:00 | PM.IMPN ---
Progress Note: A&P Assessment and Plan (1) Acute on chronic respiratory failure with hypoxia and hypercapnia: Code(s): J96.21 - Acute and chronic respiratory failure with hypoxia; J96.22 - Acute and chronic respiratory failure with hypercapnia Status: Acute Assessment and Plan: Secondary to COPD exacerbation, possible underlying pneumonia, continued tobacco use Chest xray: ?Worsened diffuse lung disease, consistent with atelectasis versus pneumonia. She was refusing nebulizers at [place] thus there may be a component of noncompliance. Continue home albuterol and Atrovent neb treatments Continue BiPAP at 14/8 rate 14 @45% ABG from this am pH 7.337, CO2 48.8, O2 77.4, Sat 94.6 Sputum culture ordered and pending Solumedrol 60mg IV Q6Hr decrease to 40mg IV Q12 Still remains course (2) Abnormal chest x-ray: Code(s): R93.89 - Abnormal findings on diagnostic imaging of other specified body structures Status: Acute Assessment and Plan: Chest x-ray shows worsen diffuse lung disease consistent with atelectasis versus pneumonia. She will be started on antibiotics given her increased shortness of breath, cough, and wheezing. Continue azithromycin and ceftriaxone SARS-CoV-2 by PCR was negative. (3) Chronic kidney disease, stage 3: Code(s): N18.30 - Chronic kidney disease, stage 3 unspecified Status: Acute Assessment and Plan: BUN/Cr 36/1.40 Creatinine appears to be at baseline Continue to trend Avoid nephrotoxic medications (4) Hypertension: Code(s): I10 - Essential (primary) hypertension Status: Acute Assessment and Plan: Current BP Blood pressures look to have been high since admission Continue home antihypertensives trend BP Adjust therapy as indicated (5) Insulin dependent type 2 diabetes mellitus: Code(s): E11.9 - Type 2 diabetes mellitus without complications; Z79.4 - retirement (current) use of insulin Status: Acute Assessment and Plan: Current Glucose 271 Continue basal insulin. Initiate sliding scale insulin Accu-Cheks hypoglycemic protocol. (6) COPD exacerbation: Code(s): J44.1 - Chronic obstructive pulmonary disease with (acute) exacerbation Status: Acute Assessment and Plan: Scheduled bronchodilators. Continue maintenance inhalers. Solu-Medrol 6 the q.6 hours. Chest xray in the am Sputum culture ordered Time Spent With Patient Time with patient: 25 - 35 minutes Subjective Date/time seen: 10/03/21 08:00 Patient seemed to be very did drowsy today she stated that she was just very tired. She did not really communicate much or answer any questions. Complete review of systems unable to be obtained due to patient's mental status. ABG from 5:00 a.m. this morning did show a slight elevation of CO2. Patient was still on BiPAP. Re-evaluated patient at 1500. Patient was awake and off bipap. She did not have any complaints at this time. She was also on room air sating about 90%. She denied any chest pain, shortness of breath, nausea, vomiting, diarrhea, constipation. 10/02/21? 17:45 This is a 51-year-old female with history of stroke, congestive heart failure, hypertension, COPD, sleep apnea, and bipolar disorder who presented to the emergency department via EMS from [facility] for evaluation of shortness of breath. She is currently on a BiPAP and while she is able to provide some history, I have supplemented some of the following via a review of her electronic medical records. Not long prior to arrival she was found hartman and ashy in appearance with an SpO2 of 60%. She refused a nebulizer treatment at the long term but did allow them to put her on 4 L nasal cannula which improved her sats into the mid 90s. She was given a continuous nebulizer and Decadron 10 mg IV en route to the emergency department with some subjectiv
[2021-10-03 08:03] LABS: Glucose Point of Care 244 mg/dl (65-105)
[2021-10-03] MEDS: INSULIN GLARGINE (*BKC) 100 UNITS/ML 40 UNITS SUB-Q ×2 (10:17→21:00)
[2021-10-03 12:41] LABS: Glucose Point of Care 280 mg/dl (65-105)
[2021-10-03] MEDS: amLODIPine BESYLATE 5 MG TABLET 10 MG PO (12:55)
[2021-10-03] MEDS: MULTIVITAMINS /C LUTEIN (CENTRUM SILVER) TABLET *BKC 1 TAB PO (12:56)
[2021-10-03] MEDS: carvediloL 25 MG TABLET PO ×2 (12:56→21:00)
[2021-10-03] MEDS: ASPIRIN 81 MG ENTERIC TABLET PO (12:56)
[2021-10-03] MEDS: GABAPENTIN 300 MG CAPSULE PO ×2 (12:56→16:14)
[2021-10-03] MEDS: CHOLECALCIFEROL 1,000 UNITS TABLET 2000 UNITS PO (12:56)
[2021-10-03] MEDS: hydrALAZINE HCL 50 MG TABLET PO ×2 (12:57→20:59)
[2021-10-03] MEDS: INSULIN ASPART (*BKC) 100 UNITS/ML 6 UNITS SUB-Q ×2 (12:57→17:59)
[2021-10-03] MEDS: ESCITALOPRAM OXALATE 10 MG TABLET PO (12:57)
[2021-10-03] MEDS: FUROSEMIDE 40 MG TABLET PO (12:57)
[2021-10-03] MEDS: INSULIN ASPART (*BKC) 100 UNITS/ML SUB-Q ×2 (12:58→17:59)
[2021-10-03] MEDS: BENZONATATE 100 MG CAPSULE PO ×2 (13:01→16:13)
[2021-10-03] MEDS: COLLAGENASE OINT 30 GM TUBE 1 APPLIC TOPICAL (13:08)
--- NOTE | 2021-10-03 15:27 | PC.NURSE ---
1510- Patient screaming and yelling for wheel alignment technician to stop with dopplers, attempted to redirect patient unsuccessfully.
[2021-10-03] MEDS: ASCORBIC ACID 500 MG TABLET PO (16:12)
[2021-10-03] MEDS: methylPREDNISolone SOD SUCC 40 MG VIAL IV PUSH (16:14)
[2021-10-03 17:26] LABS: Glucose Point of Care 290 mg/dl (65-105)
[2021-10-03] MEDS: QUEtiapine FUMARATE XR 50 MG TAB.ER.24H 150 MG PO (20:58)
[2021-10-03] MEDS: hydrOXYzine HCL 25 MG TABLET PO (20:59)
[2021-10-03] MEDS: ATORVASTATIN 40 MG TABLET PO (20:59)
[2021-10-03] MEDS: OLANZapine 5 MG TABLET PO (20:59)
[2021-10-03 21:09] LABS: Glucose Point of Care 257 mg/dl (65-105)
[2021-10-04] VITALS (21 sets, daily range): BP systolic 140–167; BP diastolic 72–105; PULSE 63–82; RESP 16–22; TEMP 36.4–36.7; O2SAT 93–97
[2021-10-04] MEDS: IPRATROPIUM BR 0.02% INH SOLN 0.5 MG/2.5 ML VIAL INHALATION ×3 (02:30→20:23)
[2021-10-04] MEDS: ALBUTEROL SULFATE NEB 2.5 MG/0.5 ML INH 5 MG INHALATION ×3 (02:30→20:22)
[2021-10-04 04:54] LABS: Basophils Percent Auto 0.2 % (0.2-1.2); Hematocrit 31.8 % (37.0-47.0); Hemoglobin 9.2 g/dL (12.0-15.0); Immature Granulocyte Absolute 0.07 K/mm3 (0.00-0.031); Immature Granulocyte Percent A 0.7 % (0-0.5); Lymphocytes Absolute Auto 1.39 K/mm3 (0.9-3.2); Mean Corpuscular HGB Conc 28.9 g/dl (32-36); Mean Corpuscular Hemoglobin 22.9 pg (26-34); Mean Corpuscular Volume 79.3 fl (80-100); Mean Platelet Volume 10.1 fl (7.4-10.4); Monocytes Absolute Auto 0.8 K/mm3 (0.1-0.6); Monocytes Percent Auto 8.5 % (2.6-8.5); Neutrophils Absolute Auto 7.6 K/mm3 (1.3-6.7); Neutrophils Percent Auto 76.6 % (45.5-73.1); Nucleated Red Blood Cells Perc 0.4 % (0.0-0.2); Platelet Count Result 307 k/mm3 (150-375); Red Blood Count 4.01 M/mm3 (4.2-5.4); Red Cell Distribution Width 21.1 % (11.5-14.5); White Blood Count 9.9 K/mm3 (4.5-10.0)
[2021-10-04 05:07] LABS: Anisocytosis 2+ (NORMAL); Hypochromasia 2+ (NORMAL); Platelet Estimate Adequate (Adequate)
[2021-10-04 05:08] LABS: Alanine Aminotransferase 16 U/L (6-35); Alkaline Phosphatase 87 U/L (38-126); Anion Gap 8 mmol/L (8-16); Aspartate Amino Transferase 18 U/L (14-36); Bilirubin,Total 0.1 mg/dL (0.2-1.3); Blood Urea Nitrogen 42 mg/dL (7-17); Calcium 8.2 mg/dL (8.4-10.2); Carbon Dioxide 25 mmol/L (22-30); Chloride 106 mmol/L (98-107); Estimated CRCL calculation 51 ml/min; Estimated Glomerular Filt Rate 34; Glucose 230 mg/dL (65-110); Magnesium 2.3 mg/dL (1.6-2.3); Potassium 4.4 mmol/L (3.4-5.0); Sodium 139 mmol/L (137-145)
[2021-10-04 08:12] LABS: Glucose Point of Care 209 mg/dl (65-105)
[2021-10-04] MEDS: INSULIN ASPART (*BKC) 100 UNITS/ML 6 UNITS SUB-Q (09:58)
[2021-10-04] MEDS: INSULIN ASPART (*BKC) 100 UNITS/ML SUB-Q ×2 (09:58→16:59)
[2021-10-04] MEDS: GABAPENTIN 300 MG CAPSULE PO ×3 (10:01→17:00)
[2021-10-04] MEDS: amLODIPine BESYLATE 5 MG TABLET 10 MG PO (10:01)
[2021-10-04] MEDS: FUROSEMIDE 40 MG TABLET PO (10:01)
[2021-10-04] MEDS: CHOLECALCIFEROL 1,000 UNITS TABLET 2000 UNITS PO (10:01)
[2021-10-04] MEDS: carvediloL 25 MG TABLET PO ×2 (10:02→21:15)
[2021-10-04] MEDS: ASCORBIC ACID 500 MG TABLET PO ×2 (10:02→17:00)
[2021-10-04] MEDS: ESCITALOPRAM OXALATE 10 MG TABLET PO (10:02)
[2021-10-04] MEDS: BENZONATATE 100 MG CAPSULE PO ×3 (10:03→16:59)
[2021-10-04] MEDS: hydrALAZINE HCL 50 MG TABLET PO ×2 (10:03→21:17)
[2021-10-04] MEDS: ASPIRIN 81 MG ENTERIC TABLET PO (10:03)
[2021-10-04] MEDS: COLLAGENASE OINT 30 GM TUBE 1 APPLIC TOPICAL (10:03)
[2021-10-04] MEDS: methylPREDNISolone SOD SUCC 40 MG VIAL IV PUSH (10:03)
[2021-10-04] MEDS: MULTIVITAMINS /C LUTEIN (CENTRUM SILVER) TABLET *BKC 1 TAB PO (10:04)
[2021-10-04] MEDS: INSULIN GLARGINE (*BKC) 100 UNITS/ML 40 UNITS SUB-Q (10:12)
--- NOTE | 2021-10-04 10:15 | PM.IMPN ---
Progress Note: A&P Assessment and Plan (1) Acute on chronic respiratory failure with hypoxia and hypercapnia: Code(s): J96.21 - Acute and chronic respiratory failure with hypoxia; J96.22 - Acute and chronic respiratory failure with hypercapnia Status: Acute Assessment and Plan: Secondary to COPD exacerbation, possible underlying pneumonia, continued tobacco use Chest xray: ?Worsened diffuse lung disease, consistent with atelectasis versus pneumonia. Seems to be more receptive to treatment Still unable to complete sentences, get tachypneic with talking Continue home albuterol and Atrovent neb treatments Continue BiPAP at 14/8 rate 14 @45%, currently on 2LNC ABG from 10/03/21 pH 7.337, CO2 48.8, O2 77.4, Sat 94.6 Sputum culture ordered and pending Change to PO prednisone 40mg x 4 days (2) COPD exacerbation: Code(s): J44.1 - Chronic obstructive pulmonary disease with (acute) exacerbation Status: Acute Assessment and Plan: Scheduled bronchodilators. Continue maintenance inhalers. Solu-Medrol 6 the q.6 hours, change to PO prednisone Chest xray in the am Sputum culture ordered (3) Abnormal chest x-ray: Code(s): R93.89 - Abnormal findings on diagnostic imaging of other specified body structures Status: Acute Assessment and Plan: Chest x-ray shows worsen diffuse lung disease consistent with atelectasis versus pneumonia. She will be started on antibiotics given her increased shortness of breath, cough, and wheezing. Continue azithromycin and ceftriaxone SARS-CoV-2 by PCR was negative. 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 Time Spent With Patient Time with patient: Greater than 35 minutes Subjective Date/time seen: 10/04/21 10:15 Interval history: 10/04/21 1015 Patient is doing lot better today. Patient stated that she is feeling okay she still very short of breath however she does state that she feels better than she did yesterday. She also stated that she feels like her speech is little bit worse than normal, however she did state that sometimes she gets like this. She denies any chest pain, nausea, vomiting, diarrhea, constipation, weakness or fatigue. She did state that she is very hungry and she wants more to eat. She is really having a hard time keeping up with sentences and breathing. Patient does appear stable and is probably able to go to a [facility] floor. 10/03/21? 08:00 Patient seemed to be very did drowsy today she stated that she was just very tired.? She did not really communicate much or answer any questions.? Complete review of systems unable to be obtained due to patient's mental status.? ABG from 5:00 a.m. this morning did show a slight elevation of CO2.? Patient was still on BiPAP. Re-evaluated patient at 1500.? Patient was awake and off bipap.? She did not have any complaints at this time.? She was also on room air sating about 90%.? She denied any chest pain, shortness of breath, nausea, vomiting, diarrhea, constipation.?
--- NOTE | 2021-10-04 10:15 | P.PNIM_ITS ---
Progress Note: A&P Assessment and Plan (1) Acute on chronic respiratory failure with hypoxia and hypercapnia: Code(s): J96.21 - Acute and chronic respiratory failure with hypoxia; J96.22 - Acute and chronic respiratory failure with hypercapnia Status: Acute Assessment and Plan: * Secondary to COPD exacerbation, possible underlying pneumonia, continued tobacco use * Chest xray: ?Worsened diffuse lung disease, consistent with atelectasis versus pneumonia. * Seems to be more receptive to treatment * Still unable to complete sentences, get tachypneic with talking * Continue home albuterol and Atrovent neb treatments * Continue BiPAP at 14/8 rate 14 @45%, currently on 2LNC * ABG from 10/03/21 pH 7.337, CO2 48.8, O2 77.4, Sat 94.6 * Sputum culture ordered and pending * Change to PO prednisone 40mg x 4 days (2) COPD exacerbation: Code(s): J44.1 - Chronic obstructive pulmonary disease with (acute) exacerbation Status: Acute Assessment and Plan: Scheduled bronchodilators. Continue maintenance inhalers. Solu-Medrol 6 the q.6 hours, change to PO prednisone Chest xray in the am Sputum culture ordered (3) Abnormal chest x-ray: Code(s): R93.89 - Abnormal findings on diagnostic imaging of other specified body structures Status: Acute Assessment and Plan: * Chest x-ray shows worsen diffuse lung disease consistent with atelectasis versus pneumonia. * She will be started on antibiotics given her increased shortness of breath, cough, and wheezing. * Continue azithromycin and ceftriaxone * SARS-CoV-2 by PCR was negative. (4) Chronic kidney disease, stage 3: Code(s): N18.30 - Chronic kidney disease, stage 3 unspecified Status: Acute Assessment and Plan: * BUN/Cr 42/1.60 * Creatinine appears to be at baseline * Continue to trend * Avoid nephrotoxic medications (5) Hypertension: Code(s): I10 - Essential (primary) hypertension Status: Acute Assessment and Plan: * Current BP 166/84 * Blood pressures look to have been high since admission * Continue home antihypertensives * trend BP * Adjust therapy as indicated (6) Insulin dependent type 2 diabetes mellitus: Code(s): E11.9 - Type 2 diabetes mellitus without complications; Z79.4 - core measures abstractor (current) use of insulin Status: Acute Assessment and Plan: * Current Glucose 230 * Increase Lantus to 50 units BID * Increase meal time insulin to 10 units * Insulin sliding scale, increase to high dose * Accu-Cheks * hypoglycemic protocol. Time Spent With Patient Time with patient: Greater than 35 minutes Subjective Date/time seen: 10/04/21 10:15 Interval history: 10/04/21 1015 Patient is doing lot better today. Patient stated that she is feeling okay she still very short of breath however she does state that she feels better than she did yesterday. She also stated that she feels like her speech is little bit worse than normal, however she did state that sometimes she gets like this. She denies any chest pain, nausea, vomiting, diarrhea, constipation, weakness or fatigue. She did state that she is very hungry and she wants more to eat. She is really having a hard time keeping up with sentences and breathing. Patient does appear stable and is probably able to go to a [facility] floor. 10/03/21? 08:00 Patient seemed to be very did drowsy today she stated that she was just very tired.? She di
[2021-10-04 11:37] LABS: Glucose Point of Care 198 mg/dl (65-105)
--- NOTE | 2021-10-04 12:29 | PCSTNOTE ---
Please refer to the Bedside Swallow Evaluation in the EMR. Please note, silent aspiration cannot be ruled out at bedside.
--- NOTE | 2021-10-04 13:08 | PC.NURSE ---
Report given to RACHEL Lan with 3 med-surg. All questions answered and plan of care reviewed. Patient to go to room 321.
--- NOTE | 2021-10-04 14:52 | PC.NURSE ---
Patient transferred from IMU to room 321 via bed at 1405. Patient denies any pain or discomfort when asked. Patient has bed alarm intact. Call light within reach and oriented of its use.
[2021-10-04 16:54] LABS: Glucose Point of Care 299 mg/dl (65-105)
[2021-10-04] MEDS: INSULIN ASPART (*BKC) 100 UNITS/ML 10 UNITS SUB-Q (16:59)
[2021-10-04] MEDS: ENOXAPARIN 40 MG/0.4 ML SYRINGE SUB-Q ×2 (21:00→21:18)
[2021-10-04] MEDS: QUEtiapine FUMARATE XR 50 MG TAB.ER.24H 150 MG PO (21:13)
[2021-10-04] MEDS: OLANZapine 5 MG TABLET PO (21:14)
[2021-10-04] MEDS: ATORVASTATIN 40 MG TABLET PO (21:17)
[2021-10-04] MEDS: hydrOXYzine HCL 25 MG TABLET PO (21:26)
[2021-10-04] MEDS: INSULIN GLARGINE (*BKC) 100 UNITS/ML 50 UNITS SUB-Q (21:28)
[2021-10-04 21:49] LABS: Glucose Point of Care 250 mg/dl (65-105)
[2021-10-04] MEDS: ACETAMINOPHEN 325 MG TABLET 650 MG PO (22:54)
[2021-10-05] VITALS (18 sets, daily range): BP systolic 144–196; BP diastolic 58–89; PULSE 66–82; RESP 16–20; TEMP 36.2–36.7; O2SAT 90–98
[2021-10-05] MEDS: TOLNAFTATE 1% POWDER 45 GM BTL 1 APPLIC TOPICAL ×2 (00:21→09:06)
[2021-10-05] MEDS: IPRATROPIUM BR 0.02% INH SOLN 0.5 MG/2.5 ML VIAL INHALATION ×4 (02:08→20:43)
[2021-10-05] MEDS: ALBUTEROL SULFATE NEB 2.5 MG/0.5 ML INH 5 MG INHALATION ×4 (02:08→20:43)
[2021-10-05 06:13] LABS: Basophils Percent Auto 0.1 % (0.2-1.2); Eosinophils Percent Auto 0.1 % (0-4.4); Hematocrit 30.5 % (37.0-47.0); Hemoglobin 9.4 g/dL (12.0-15.0); Immature Granulocyte Absolute 0.06 K/mm3 (0.00-0.031); Immature Granulocyte Percent A 0.5 % (0-0.5); Lymphocytes Absolute Auto 2.96 K/mm3 (0.9-3.2); Lymphocytes Percent Auto 24.9 % (18.3-44.2); Mean Corpuscular HGB Conc 30.8 g/dl (32-36); Mean Corpuscular Hemoglobin 23.5 pg (26-34); Mean Corpuscular Volume 76.3 fl (80-100); Mean Platelet Volume 9.8 fl (7.4-10.4); Monocytes Absolute Auto 1.6 K/mm3 (0.1-0.6); Monocytes Percent Auto 13.6 % (2.6-8.5); Neutrophils Absolute Auto 7.2 K/mm3 (1.3-6.7); Neutrophils Percent Auto 60.8 % (45.5-73.1); Nucleated Red Blood Cells Absolute Auto 0.1 K/mm3 (0.0-0.012); Nucleated Red Blood Cells Perc 0.4 % (0.0-0.2); Platelet Count Result 296 k/mm3 (150-375); Red Cell Distribution Width 19.9 % (11.5-14.5); White Blood Count 11.9 K/mm3 (4.5-10.0)
[2021-10-05 06:24] LABS: Alanine Aminotransferase 18 U/L (6-35); Alkaline Phosphatase 77 U/L (38-126); Anion Gap 8 mmol/L (8-16); Aspartate Amino Transferase 27 U/L (14-36); Bilirubin,Total 0.2 mg/dL (0.2-1.3); Blood Urea Nitrogen 55 mg/dL (7-17); Carbon Dioxide 26 mmol/L (22-30); Chloride 102 mmol/L (98-107); Estimated CRCL calculation 46 ml/min; Estimated Glomerular Filt Rate 31; Glucose 159 mg/dL (65-110); Magnesium 2.1 mg/dL (1.6-2.3); Sodium 136 mmol/L (137-145)
[2021-10-05 07:40] LABS: Glucose Point of Care 146 mg/dl (65-105)
[2021-10-05] MEDS: INSULIN GLARGINE (*BKC) 100 UNITS/ML 50 UNITS SUB-Q ×2 (09:01→22:54)
[2021-10-05] MEDS: INSULIN ASPART (*BKC) 100 UNITS/ML 10 UNITS SUB-Q ×3 (09:02→17:19)
[2021-10-05] MEDS: COLLAGENASE OINT 30 GM TUBE 1 APPLIC TOPICAL (09:03)
[2021-10-05] MEDS: predniSONE 20 MG TABLET 40 MG PO (09:04)
[2021-10-05] MEDS: hydrALAZINE HCL 50 MG TABLET PO (09:04)
[2021-10-05] MEDS: ASCORBIC ACID 500 MG TABLET PO ×2 (09:05→17:20)
[2021-10-05] MEDS: GABAPENTIN 300 MG CAPSULE PO ×3 (09:05→17:21)
[2021-10-05] MEDS: amLODIPine BESYLATE 5 MG TABLET 10 MG PO (09:05)
[2021-10-05] MEDS: FUROSEMIDE 40 MG TABLET PO (09:05)
[2021-10-05] MEDS: ASPIRIN 81 MG ENTERIC TABLET PO (09:05)
[2021-10-05] MEDS: BENZONATATE 100 MG CAPSULE PO ×3 (09:05→17:20)
[2021-10-05] MEDS: carvediloL 25 MG TABLET PO (09:05)
[2021-10-05] MEDS: CHOLECALCIFEROL 1,000 UNITS TABLET 2000 UNITS PO (09:05)
[2021-10-05] MEDS: ESCITALOPRAM OXALATE 10 MG TABLET PO (09:05)
[2021-10-05] MEDS: MULTIVITAMINS /C LUTEIN (CENTRUM SILVER) TABLET *BKC 1 TAB PO (09:06)
--- NOTE | 2021-10-05 09:15 | PM.IMPN ---
Progress Note: A&P Assessment and Plan (1) Acute on chronic respiratory failure with hypoxia and hypercapnia: Code(s): J96.21 - Acute and chronic respiratory failure with hypoxia; J96.22 - Acute and chronic respiratory failure with hypercapnia Status: Acute Assessment and Plan: Secondary to COPD exacerbation, possible underlying pneumonia, continued tobacco use Chest xray: ?Worsened diffuse lung disease, consistent with atelectasis versus pneumonia. Seems to be more receptive to treatment Able to complete sentences, and hold conversation Continue home albuterol and Atrovent neb treatments Continue BiPAP at 14/8 rate 14 @45%, currently on 2LNC ABG from 10/03/21 pH 7.337, CO2 48.8, O2 77.4, Sat 94.6 Sputum culture remains uncollected Change to PO prednisone 40mg x 4 days (2) COPD exacerbation: Code(s): J44.1 - Chronic obstructive pulmonary disease with (acute) exacerbation Status: Acute Assessment and Plan: Scheduled bronchodilators. Continue maintenance inhalers. PO prednisone Chest xray in the am Sputum culture ordered should be stable for DC (3) Abnormal chest x-ray: Code(s): R93.89 - Abnormal findings on diagnostic imaging of other specified body structures Status: Acute Assessment and Plan: Chest x-ray shows worsen diffuse lung disease consistent with atelectasis versus pneumonia. She will be started on antibiotics given her increased shortness of breath, cough, and wheezing. Continue azithromycin and ceftriaxone SARS-CoV-2 by PCR was negative. (4) Chronic kidney disease, stage 3: Code(s): N18.30 - Chronic kidney disease, stage 3 unspecified Status: Acute Assessment and Plan: BUN/Cr 55/1.70 Creatinine appears to be at baseline Continue to trend Avoid nephrotoxic medications (5) Hypertension: Code(s): I10 - Essential (primary) hypertension Status: Acute Assessment and Plan: Current BP 160/58 Blood pressures look to have been high since admission Continue home antihypertensives trend BP Adjust therapy as indicated Give one dose of lasix (6) Insulin dependent type 2 diabetes mellitus: Code(s): E11.9 - Type 2 diabetes mellitus without complications; Z79.4 - care home (current) use of insulin Status: Acute Assessment and Plan: Current Glucose 159 Increase Lantus to 50 units BID Increase meal time insulin to 10 units Insulin sliding scale, increase to high dose Accu-Cheks hypoglycemic protocol. Time Spent With Patient Time with patient: Greater than 35 minutes Subjective Date/time seen: 10/05/21914 Interval history: 10/05/21914 Patient was lying in bed. Patient stated that she is feeling on better than she has. She said she is very hungry and she was having some pain in her chest that has went away. She denies any shortness of breath or weakness at this time. She denies any radiation of pain from her chest. She denies any palpitations. She denies any nausea or vomiting. Patient remains on 2-3L nasal cannula. 10/04/21 1015 Patient is doing lot better today. Patient stated that she is feeling okay she still very short of breath however she does state that she feels better than she did yesterday. She also stated that she feels like her speech is little bit worse than normal, however she did state that sometimes she gets like this. She denies any chest pain, nausea, vomiting, diarrhea, constipation, weakness or fatigue. She did state that she is very hungry and she wants more to eat. She is really having a hard time keeping up with sentences and breathing. Patient does appear stable and [facility] 10/03/21? 08:00 Patient seemed to be very did drowsy today she stated that she was just very tired.? She did not really communicate much or answer any questions.? Complete review of systems un
--- NOTE | 2021-10-05 09:15 | P.PNIM_ITS ---
Progress Note: A&P Assessment and Plan (1) Acute on chronic respiratory failure with hypoxia and hypercapnia: Code(s): J96.21 - Acute and chronic respiratory failure with hypoxia; J96.22 - Acute and chronic respiratory failure with hypercapnia Status: Acute Assessment and Plan: * Secondary to COPD exacerbation, possible underlying pneumonia, continued tobacco use * Chest xray: ?Worsened diffuse lung disease, consistent with atelectasis versus pneumonia. * Seems to be more receptive to treatment * Able to complete sentences, and hold conversation * Continue home albuterol and Atrovent neb treatments * Continue BiPAP at 14/8 rate 14 @45%, currently on 2LNC * ABG from 10/03/21 pH 7.337, CO2 48.8, O2 77.4, Sat 94.6 * Sputum culture remains uncollected * Change to PO prednisone 40mg x 4 days (2) COPD exacerbation: Code(s): J44.1 - Chronic obstructive pulmonary disease with (acute) exacerbation Status: Acute Assessment and Plan: Scheduled bronchodilators. Continue maintenance inhalers. PO prednisone Chest xray in the am Sputum culture ordered should be stable for DC (3) Abnormal chest x-ray: Code(s): R93.89 - Abnormal findings on diagnostic imaging of other specified body structures Status: Acute Assessment and Plan: * Chest x-ray shows worsen diffuse lung disease consistent with atelectasis versus pneumonia. * She will be started on antibiotics given her increased shortness of breath, cough, and wheezing. * Continue azithromycin and ceftriaxone * SARS-CoV-2 by PCR was negative. (4) Chronic kidney disease, stage 3: Code(s): N18.30 - Chronic kidney disease, stage 3 unspecified Status: Acute Assessment and Plan: * BUN/Cr 55/1.70 * Creatinine appears to be at baseline * Continue to trend * Avoid nephrotoxic medications (5) Hypertension: Code(s): I10 - Essential (primary) hypertension Status: Acute Assessment and Plan: * Current BP 160/58 * Blood pressures look to have been high since admission * Continue home antihypertensives * trend BP * Adjust therapy as indicated * Give one dose of lasix (6) Insulin dependent type 2 diabetes mellitus: Code(s): E11.9 - Type 2 diabetes mellitus without complications; Z79.4 - buttermaker continuous churn (current) use of insulin Status: Acute Assessment and Plan: * Current Glucose 159 * Increase Lantus to 50 units BID * Increase meal time insulin to 10 units * Insulin sliding scale, increase to high dose * Accu-Cheks * hypoglycemic protocol. Time Spent With Patient Time with patient: Greater than 35 minutes Subjective Date/time seen: 10/05/21914 Interval history: 10/05/21914 Patient was lying in bed. Patient stated that she is feeling on better than she has. She said she is very hungry and she was having some pain in her chest that has went away. She denies any shortness of breath or weakness at this time. She denies any radiation of pain from her chest. She denies any palpitations. She denies any nausea or vomiting. Patient remains on 2-3L nasal cannula. 10/04/21 1015 Patient is doing lot better today. Patient stated that she is feeling okay she still very short of breath however she does state that she feels better than she did yesterday. She also stated that she feels like her speech is little bit worse than normal, however she did state that sometimes she gets like this. She
[2021-10-05 11:27] LABS: Glucose Point of Care 151 mg/dl (65-105)
[2021-10-05 16:17] LABS: Glucose Point of Care 273 mg/dl (65-105)
[2021-10-05] MEDS: INSULIN ASPART (*BKC) 100 UNITS/ML SUB-Q (17:19)
[2021-10-06] VITALS (14 sets, daily range): BP systolic 156–174; BP diastolic 73–88; PULSE 64–84; RESP 12–20; TEMP 36.7; O2SAT 96–99
[2021-10-06] MEDS: ATORVASTATIN 40 MG TABLET PO (00:52)
[2021-10-06] MEDS: carvediloL 25 MG TABLET PO ×2 (00:52→08:39)
[2021-10-06] MEDS: hydrOXYzine HCL 25 MG TABLET PO (00:54)
[2021-10-06] MEDS: hydrALAZINE HCL 50 MG TABLET PO ×2 (00:54→08:40)
[2021-10-06] MEDS: TOLNAFTATE 1% POWDER 45 GM BTL 1 APPLIC TOPICAL ×2 (00:55→08:41)
[2021-10-06] MEDS: OLANZapine 5 MG TABLET PO (00:55)
[2021-10-06] MEDS: QUEtiapine FUMARATE XR 50 MG TAB.ER.24H 150 MG PO (00:55)
[2021-10-06] MEDS: ALBUTEROL SULFATE NEB 2.5 MG/0.5 ML INH 5 MG INHALATION ×3 (02:40→14:01)
[2021-10-06] MEDS: IPRATROPIUM BR 0.02% INH SOLN 0.5 MG/2.5 ML VIAL INHALATION ×3 (02:40→14:02)
[2021-10-06 02:59] LABS: Glucose Point of Care 388 mg/dl (65-105)
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
[2021-10-06 06:32] LABS: Basophils Percent Auto 0.3 % (0.2-1.2); Eosinophils Percent Auto 0.4 % (0-4.4); Hematocrit 32.8 % (37.0-47.0); Hemoglobin 9.7 g/dL (12.0-15.0); Immature Granulocyte Absolute 0.06 K/mm3 (0.00-0.031); Immature Granulocyte Percent A 0.5 % (0-0.5); Lymphocytes Absolute Auto 2.99 K/mm3 (0.9-3.2); Lymphocytes Percent Auto 26.8 % (18.3-44.2); Mean Corpuscular HGB Conc 29.6 g/dl (32-36); Mean Corpuscular Hemoglobin 23.2 pg (26-34); Mean Corpuscular Volume 78.5 fl (80-100); Mean Platelet Volume 10.2 fl (7.4-10.4); Monocytes Absolute Auto 1.7 K/mm3 (0.1-0.6); Monocytes Percent Auto 14.8 % (2.6-8.5); Neutrophils Absolute Auto 6.4 K/mm3 (1.3-6.7); Neutrophils Percent Auto 57.2 % (45.5-73.1); Nucleated Red Blood Cells Perc 0.3 % (0.0-0.2); Platelet Count Result 296 k/mm3 (150-375); Red Blood Count 4.18 M/mm3 (4.2-5.4); White Blood Count 11.2 K/mm3 (4.5-10.0)
[2021-10-06 06:40] LABS: Alanine Aminotransferase 17 U/L (6-35); Albumin Level 3.1 g/dL (3.5-5.1); Alkaline Phosphatase 90 U/L (38-126); Anion Gap 7 mmol/L (8-16); Aspartate Amino Transferase 21 U/L (14-36); Bilirubin,Total 0.1 mg/dL (0.2-1.3); Blood Urea Nitrogen 57 mg/dL (7-17); Calcium 7.8 mg/dL (8.4-10.2); Carbon Dioxide 29 mmol/L (22-30); Chloride 100 mmol/L (98-107); Estimated CRCL calculation 51 ml/min; Estimated Glomerular Filt Rate 34; Glucose 229 mg/dL (65-110); Potassium 3.6 mmol/L (3.4-5.0); Sodium 136 mmol/L (137-145)
[2021-10-06 07:12] LABS: Anisocytosis 1+ (NORMAL); Hypochromasia 1+ (NORMAL); Platelet Estimate Adequate (Adequate)
[2021-10-06 08:03] LABS: Glucose Point of Care 194 mg/dl (65-105)
[2021-10-06] MEDS: CHOLECALCIFEROL 1,000 UNITS TABLET 2000 UNITS PO (08:38)
[2021-10-06] MEDS: INSULIN ASPART (*BKC) 100 UNITS/ML 10 UNITS SUB-Q ×3 (08:38→18:07)
[2021-10-06] MEDS: BENZONATATE 100 MG CAPSULE PO ×3 (08:39→18:13)
[2021-10-06] MEDS: INSULIN GLARGINE (*BKC) 100 UNITS/ML 50 UNITS SUB-Q (08:39)
[2021-10-06] MEDS: ESCITALOPRAM OXALATE 10 MG TABLET PO (08:39)
[2021-10-06] MEDS: predniSONE 20 MG TABLET 40 MG PO (08:39)
[2021-10-06] MEDS: ASPIRIN 81 MG ENTERIC TABLET PO (08:39)
[2021-10-06] MEDS: GABAPENTIN 300 MG CAPSULE PO ×3 (08:40→18:15)
[2021-10-06] MEDS: FUROSEMIDE 40 MG TABLET PO (08:40)
[2021-10-06] MEDS: MULTIVITAMINS /C LUTEIN (CENTRUM SILVER) TABLET *BKC 1 TAB PO (08:40)
[2021-10-06] MEDS: COLLAGENASE OINT 30 GM TUBE 1 APPLIC TOPICAL (08:40)
[2021-10-06] MEDS: amLODIPine BESYLATE 5 MG TABLET 10 MG PO (08:41)
[2021-10-06] MEDS: ASCORBIC ACID 500 MG TABLET PO ×2 (08:41→18:14)
--- NOTE | 2021-10-06 10:15 | PM.DS ---
DS: Admitting Diagnosis Discharge Date 10/06/21 1015 Admitting Diagnosis COPD exacerbation DS: Discharge Diagnosis Discharge Diagnosis (1) Acute on chronic respiratory failure with hypoxia and hypercapnia: Code(s): J96.21 - Acute and chronic respiratory failure with hypoxia; J96.22 - Acute and chronic respiratory failure with hypercapnia Status: Acute Assessment and Plan: Secondary to COPD exacerbation, possible underlying pneumonia, continued tobacco use Chest xray: ?Worsened diffuse lung disease, consistent with atelectasis versus pneumonia. Seems to be more receptive to treatment Able to complete sentences, and hold conversation Continue home albuterol and Atrovent neb treatments Continue BiPAP at 14/8 rate 14 @45%, currently on 2LNC ABG from 10/03/21 pH 7.337, CO2 48.8, O2 77.4, Sat 94.6 Sputum culture remains uncollected Change to PO prednisone 40mg x 4 days (2) COPD exacerbation: Code(s): J44.1 - Chronic obstructive pulmonary disease with (acute) exacerbation Status: Acute Assessment and Plan: Scheduled bronchodilators. Continue maintenance inhalers. PO prednisone Chest xray ?Persistent extensive bilateral pulmonary infiltrates, right greater than left Cardiomegaly, aortic atherosclerosis Little interval change since 10/02/2021? Sputum culture ordered should be stable for DC (3) Abnormal chest x-ray: Code(s): R93.89 - Abnormal findings on diagnostic imaging of other specified body structures Status: Acute Assessment and Plan: Chest x-ray shows worsen diffuse lung disease consistent with atelectasis versus pneumonia. She will be started on antibiotics given her increased shortness of breath, cough, and wheezing. Continue azithromycin and ceftriaxone, changed to augmentin for DC SARS-CoV-2 by PCR was negative. (4) Chronic kidney disease, stage 3: Code(s): N18.30 - Chronic kidney disease, stage 3 unspecified Status: Acute Assessment and Plan: BUN/Cr 57/1.60 Creatinine appears to be at baseline Continue to trend Avoid nephrotoxic medications (5) Hypertension: Code(s): I10 - Essential (primary) hypertension Status: Acute Assessment and Plan: Current BP 171/88 Blood pressures look to have been high since admission Continue home antihypertensives trend BP Adjust therapy as indicated Give one dose of lasix (6) Insulin dependent type 2 diabetes mellitus: Code(s): E11.9 - Type 2 diabetes mellitus without complications; Z79.4 - intermediate designer (current) use of insulin Status: Acute Assessment and Plan: Current Glucose 229 Increase Lantus to 50 units BID Increase meal time insulin to 10 units Insulin sliding scale, increase to high dose Accu-Cheks hypoglycemic protocol. (7) Iron deficiency anemia: Code(s): D50.9 - Iron deficiency anemia, unspecified Status: Acute Assessment and Plan: H/H 9.7/32.8 today MCV is 78.5 Anemia labs indicate low iron Iron supplement added DS: Summary Hospital Course Hospital Course: Patient is a 51-year-old female with a past medical history of CVA COPD diabetes and hypertension who presented to the ED from the shelter for evaluation of shortness of breath. Patient had been refusing some of her medications at the shelter and was found to have an SpO2 of 60%. Patient was placed on 4 L nasal cannula and her sats did improve into the 90s. ABG was done and showed that she was in respiratory acidosis and was placed on a BiPAP at that time. Since that time patient has been able to be off of BiPAP and has been able to maintain her oxygen saturations on her home O2 of 3 L. chest x-ray did show bilateral pulmonary infiltrates peer patient was placed on IV antibiotics consisting of azithromycin and ceftriaxone. COVID PCR was negative. Patient was also given Solu-Medrol which has bee
--- NOTE | 2021-10-06 10:15 | P.DS_ITS ---
DS: Admitting Diagnosis Discharge Date 10/06/21 1015 Admitting Diagnosis COPD exacerbation DS: Discharge Diagnosis Discharge Diagnosis (1) Acute on chronic respiratory failure with hypoxia and hypercapnia: Code(s): J96.21 - Acute and chronic respiratory failure with hypoxia; J96.22 - Acute and chronic respiratory failure with hypercapnia Status: Acute Assessment and Plan: * Secondary to COPD exacerbation, possible underlying pneumonia, continued tobacco use * Chest xray: ?Worsened diffuse lung disease, consistent with atelectasis versus pneumonia. * Seems to be more receptive to treatment * Able to complete sentences, and hold conversation * Continue home albuterol and Atrovent neb treatments * Continue BiPAP at 14/8 rate 14 @45%, currently on 2LNC * ABG from 10/03/21 pH 7.337, CO2 48.8, O2 77.4, Sat 94.6 * Sputum culture remains uncollected * Change to PO prednisone 40mg x 4 days (2) COPD exacerbation: Code(s): J44.1 - Chronic obstructive pulmonary disease with (acute) exacerbation Status: Acute Assessment and Plan: Scheduled bronchodilators. Continue maintenance inhalers. PO prednisone Chest xray ?Persistent extensive bilateral pulmonary infiltrates, right greater than left Cardiomegaly, aortic atherosclerosis Little interval change since 10/02/2021? Sputum culture ordered should be stable for DC (3) Abnormal chest x-ray: Code(s): R93.89 - Abnormal findings on diagnostic imaging of other specified body str uctures Status: Acute Assessment and Plan: * Chest x-ray shows worsen diffuse lung disease consistent with atelectasis versus pneumonia. * She will be started on antibiotics given her increased shortness of breath, cough, and wheezing. * Continue azithromycin and ceftriaxone, changed to augmentin for DC * SARS-CoV-2 by PCR was negative. (4) Chronic kidney disease, stage 3: Code(s): N18.30 - Chronic kidney disease, stage 3 unspecified Status: Acute Assessment and Plan: * BUN/Cr 57/1.60 * Creatinine appears to be at baseline * Continue to trend * Avoid nephrotoxic medications (5) Hypertension: Code(s): I10 - Essential (primary) hypertension Status: Acute Assessment and Plan: * Current BP 171/88 * Blood pressures look to have been high since admission * Continue home antihypertensives * trend BP * Adjust therapy as indicated * Give one dose of lasix (6) Insulin dependent type 2 diabetes mellitus: Code(s): E11.9 - Type 2 diabetes mellitus without complications; 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 (7) Iron deficiency anemia: Code(s): D50.9 - Iron deficiency anemia, unspecified Status: Acute Assessment and Plan: * H/H 9.7/32.8 today * MCV is 78.5 * Anemia labs indicate low iron * Iron supplement added DS: Summary Hospital Course Hospital Course: Patient is a 51-year-old female with a past medical history of CVA COPD diabetes and hypertension who presented to the ED from the long-term for evaluation of shortness of breath. Patient had been refusing some of her medications at the long-term and was found to have an SpO2 of 60
[2021-10-06 10:53] LABS: Iron 28 ug/dL (37-170)
[2021-10-06 11:03] LABS: Transferrin 314 mg/dL (206-381)
[2021-10-06 11:08] LABS: Percent Iron Saturation 6 % (20-50)
[2021-10-06 11:28] LABS: Folic Acid 9.9 ng/mL (2.76->20)
[2021-10-06 12:16] LABS: Glucose Point of Care 261 mg/dl (65-105)
[2021-10-06] MEDS: INSULIN ASPART (*BKC) 100 UNITS/ML SUB-Q ×2 (12:42→18:10)
[2021-10-06] MEDS: hydrALAZINE HCL 20 MG/ML VIAL 10 MG IV PUSH (12:43)
[2021-10-06 13:32] LABS: Pneumococcal Antigen Urine Not Detected (Not Detected)
[2021-10-06 14:21] LABS: EDCOVIDSCREEN Negative (Negative)
[2021-10-06 17:03] LABS: Glucose Point of Care 310 mg/dl (65-105)
[2021-10-06] MEDS: FERROUS SULFATE 324 MG TABLET PO (18:14)
[2021-10-07 13:56] LABS: Legionella pneumophila Ag Ur Not Detected (Not Detected)
== END 2021-10-06 18:30 | DRG 140 ==
LOC: ANHED 16:26 → ANHIMU 17:02 → ANH3MEDSUR 10-06 11:28 → ANHIMU 10-09 11:43
PROVIDERS: Physician Assistant; Admitting Provider Family Medicine; Emergency Provider Family Medicine; PCP Internal Medicine; Visit Provider Nurse Practitioner
DX: J44.1 Chronic obstructive pulmonary disease with (acute) exacerbation (principal); J18.9 Pneumonia, unspecified organism; J44.0 Chronic obstructive pulmonary disease with (acute) lower respiratory infection; J96.21 Acute and chronic respiratory failure with hypoxia; J96.22 Acute and chronic respiratory failure with hypercapnia; Z20.822 Contact with and (suspected) exposure to COVID-19; I13.0 Hypertensive heart and chronic kidney disease with heart failure and stage 1 through stage 4 chronic kidney disease, or unspecified chronic kidney disease; N18.30 Chronic kidney disease, stage 3 unspecified; I50.9 Heart failure, unspecified; L89.623 Pressure ulcer of left heel, stage 3; L89.613 Pressure ulcer of right heel, stage 3; J98.11 Atelectasis; D50.9 Iron deficiency anemia, unspecified; E11.22 Type 2 diabetes mellitus with diabetic chronic kidney disease; E11.42 Type 2 diabetes mellitus with diabetic polyneuropathy; E11.65 Type 2 diabetes mellitus with hyperglycemia; E66.01 Morbid (severe) obesity due to excess calories; G47.30 Sleep apnea, unspecified; F32.3 Major depressive disorder, single episode, severe with psychotic features; F17.210 Nicotine dependence, cigarettes, uncomplicated; Z79.4 Long term (current) use of insulin; Z86.73 Personal history of transient ischemic attack (TIA), and cerebral infarction without residual deficits; Z68.41 Body mass index [BMI] 40.0-44.9, adult; Z90.710 Acquired absence of both cervix and uterus; Z91.14 Patient's other noncompliance with medication regimen
CPT/HCPCS: 36415; 36600; 71045; 80048; 80053; 82375; 82607; 82728; 82746; 82805; 82948; 83036; 83050; 83540; 83550; 83735; 83880; 84466; 84484; 85025; 85610; 87040; 87426; 87449; 87502; 87899; 92610; 93005; 93970; 94002; 94003; 94640; 97110; 97162; 97166; 97530; 99285; A9270; C9803; J0360; J0456; J0696; J1650; J1815; J2920; J2930; J7512; U0003; U0005

== ENCOUNTER 2021-10-30 16:47 | Inpatient (IN) | payer OTHER, SELFPAY ==
[2021-10-30] VITALS (23 sets, daily range): BP systolic 148–181; BP diastolic 81–98; PULSE 73–96; RESP 8–24; TEMP 36.3–36.4; O2SAT 80–95; BMI 51.2; BMI 46.7
--- NOTE | ~2021-10-30 | XR_ITS ---
XR chest 1V portable DATE: 10/30/2021 17:25 INDICATION: Cough, low oxygen saturation. History of COPD. TECHNIQUE: Portable supine AP views on 10/30/2021 at 1720 hours COMPARISON: 10/06/2021 portable supine AP view FINDINGS: There is cardiomegaly. Pulmonary vascular congestion and redistribution. There are bilatera l pulmonary infiltrates, scattered throughout the right lung, as well as left mid lung, with atelecta sis/consolidation in the left lower lobe. Differential diagnosis for the pulmonary infiltrates includ es pulmonary edema, pneumonia. Mild pleural effusions. Aortic arch calcification. No pneumothorax. IMPRESSION: Cardiomegaly, pulmonary vascular congestion, small pleural effusions and bilateral pulmon aminata infiltrates, suggesting pulmonary edema. Pneumonia is not excluded. Reviewed, dictated and finalized at location A. IMPRESSION: Cardiomegaly, pulmonary vascular congestion, small pleural effusion s and bilateral pulmonary infiltrates, suggesting pulmonary edema. Pneumonia is not excluded.
--- NOTE | ~2021-10-30 | XR_ITS ---
EXAMINATION: XR chest 2V DATE: 11/06/2021 09:57 INDICATION: Congestive heart failure and hypoxia TECHNIQUE: frontal and lateral views of the chest were obtained. COMPARISON: Chest radiograph dated 10/30/[address] dated 11/03/2021 FINDINGS: Significantly limited evaluation on the lateral projection due to body habitus. Opacities in the bila teral lower lung zones, left greater than right including blunting at the posterior sulci consistent with small bilateral effusions and associated atelectasis versus pneumonia. Oblique band of discoid a telectasis/scarring in the right mid to upper lung zone. Improvement in prior pulmonary vascular maggy estion. Calcified nodules at the left lung base consistent with old granulomatous disease. No pneumot horax. Cardiomegaly. IMPRESSION: 1. Persistent small bilateral pleural effusions with associated atelectasis and/or pneumonia in the l ower lung zones. 2. Cardiomegaly. Reviewed, dictated and finalized at location A. IMPRESSION: 1. Persistent small bilateral pleural effusions with associated atelectasis and /or pneumonia in the lower lung zones. 2. Cardiomegaly.
--- NOTE | ~2021-10-30 | CT_ITS ---
EXAMINATION: CT diagnostic chest wo con DATE: 11/03/2021 20:28 INDICATION: Hypoxia TECHNIQUE: Computed tomography (CT) of the chest was performed without intravenous contrast. The dose -length product (DLP) was 1039.27 mGy-cm. Automated exposure control and iterative reconstruction justine hnique were employed. COMPARISON: 08/03/2021 FINDINGS: There are small pleural effusions. No pneumothorax is identified. Exam is captured in an ex piratory phase. There are some areas of air-trapping in the upper lobes. There are are airspace opaci ties of the lower lobes with improvement on the right and worsening on the left. Airspace opacities i n the medial right upper lobe have improved. There are stable airspace opacities in the perihilar and medial left upper lobe. Cardiomegaly is noted. There is unchanged mild mediastinal lymphadenopathy, likely reactive. There is moderate thoracic spondylosis. IMPRESSION: 1. Cardiomegaly with small pleural effusions. 2. Airspace opacities of the lungs as detailed above, likely atelectasis with possible superimposed p neumonia. Reviewed, dictated and finalized at location A. IMPRESSION: 1. Cardiomegaly with small pleural effusions. 2. Airspace opacities of the lungs as detailed above, likely atelectasis with p ossible superimposed pneumonia.
--- NOTE | ~2021-10-30 | US_ITS ---
EXAMINATION: US venous doppler [facility] DATE: 11/04/2021 14:46 INDICATION: Lower limb pain and swelling TECHNIQUE: Grayscale ultrasound images without and with compression and Doppler ultrasound images of the bilateral lower extremity veins were obtained. COMPARISON: None. FINDINGS: The visualized portions of right common femoral vein, profunda (deep) femoral vein, femoral vein, pop liteal vein and greater saphenous vein outflow are patent. Following assessment of the right poplitea l vein the patient requested termination of the study prior to evaluation of the veins in the right c césar caudal to the right popliteal vein as well as prior to evaluation of the veins in the left lower limb. IMPRESSION: 1. Incomplete study terminated at patient request prior to assessment of the veins below the right kn ee or throughout the left lower limb. 2. No deep venous thrombosis in the right popliteal and more proximal veins at the right thigh. Reviewed, dictated and finalized at location A. IMPRESSION: 1. Incomplete study terminated at patient request prior to assessment of the ve ins below the right knee or throughout the left lower limb. 2. No deep venous thrombosis in the right popliteal and more proximal veins at the right thigh.
--- NOTE | 2021-10-30 16:50 | ECG_ITS ---
Measurements Intervals [place] Rate: 79 P: 68 MI: 197 QRS: -28 QRSD: 98 T: 48 QT: 382 QTc: 439 Interpretive Statements SINUS RHYTHM LOW QRS VOLTAGE [QRS DEFLECTION < 0.5/1.0 mV IN LIMB/CHEST LEADS] POSSIBLE ANTERIOR MYOCARDIAL INFARCTION , OLD [30 ms Q WAVE IN V3/V4, OR R < 0.2 mV IN V4] COMPARED TO ECG 10/02/2021 13:44:33 NO SIGNIFICANT CHANGES Electronically Signed On 11-01-2021 15:58:00 CDT by Sánchez Taylor M.D.
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
[2021-10-30 17:10] LABS: Alveolar/Arterial O2 Gradient 145.8 mmHg; Base Excess ABG 0.6 mEq/l (+/-2.0); Carboxyhemoglobin 3.2 % THb (0-2.0); Fractional Inspired Oxygen 38 %; Methemoglobin ABG 0.3 %THb (0-1.5); Oxygen Content ABG 14.8 %vol (16.0-22.0); PCO2 ABG 57.8 mmHg (35.0-45.0); PO2 ABG 58.4 mmHg (80.0-100.0); PO2 FiO2 Ratio Arterial Blood 1.54 %; Reduced Hemoglobin 10.9 %THb (0-5.0); Total Hemoglobin 12.3 g/dL (12.0-18.0); pH ABG 7.303 (7.350-7.450)
[2021-10-30 17:10] LABS: Basophils Absolute Auto 0.1 K/mm3 (0.0-0.1); Basophils Percent Auto 1.1 % (0.2-1.2); Eosinophils Absolute Auto 0.4 K/mm3 (0-0.3); Eosinophils Percent Auto 3.5 % (0-4.4); Hematocrit 39.4 % (37.0-47.0); Hemoglobin 11.2 g/dL (12.0-15.0); Lymphocytes Absolute Auto 3.32 K/mm3 (0.9-3.2); Lymphocytes Percent Auto 32.9 % (18.3-44.2); Mean Corpuscular HGB Conc 28.4 g/dl (32-36); Mean Corpuscular Hemoglobin 24.3 pg (26-34); Mean Corpuscular Volume 85.7 fl (80-100); Mean Platelet Volume 9.9 fl (7.4-10.4); Monocytes Absolute Auto 0.9 K/mm3 (0.1-0.6); Monocytes Percent Auto 9.3 % (2.6-8.5); Neutrophils Absolute Auto 5.3 K/mm3 (1.3-6.7); Neutrophils Percent Auto 52.2 % (45.5-73.1); Nucleated Red Blood Cells Absolute Auto 0.1 K/mm3 (0.0-0.012); Nucleated Red Blood Cells Perc 0.5 % (0.0-0.2); Platelet Count Result 291 k/mm3 (150-375); Red Cell Distribution Width 25.2 % (11.5-14.5); White Blood Count 10.1 K/mm3 (4.5-10.0)
[2021-10-30 17:12] LABS: Oxygen Saturation ABG 87.1 % (95.0-100.0)
[2021-10-30 17:13] LABS: Device NASAL CANNULA; Liters per Minute 4.5 LPM; Modified Allen's Test Pass; Oxyhemoglobin 85.6 % THb (90.0-100.0); Site Drawn LEFT RADIAL
[2021-10-30 17:24] LABS: Lactic Acid Reflex 1.6 mmol/L (0.7-2.0)
[2021-10-30 17:27] LABS: INR 1.2; Prothrombin Time 14.3 Seconds (11.1-14.7)
[2021-10-30 17:28] LABS: Partial Thromboplastin Time 30.4 SECONDS (22.3-36.8)
[2021-10-30 17:35] LABS: NT Pro B Type Natriuretic Pept 2670 pg/mL (5-100); Troponin I < 0.012 ng/mL (0.000-0.034)
--- NOTE | 2021-10-30 17:39 | PC.NURSE ---
Pt refuses to have blood cultures drawn. States you're not sticking me with any more needles .
[2021-10-30] MEDS: FUROSEMIDE INJ 40 MG/4 ML VIAL IV PUSH (17:48)
[2021-10-30 18:06] LABS: Anisocytosis 2+ (NORMAL); Hypochromasia 1+ (NORMAL); Ovalocytes 1+ (NORMAL); Platelet Estimate Adequate (Adequate)
[2021-10-30 18:20] LABS: SARS-CoV-2 RNA PCR Negative
[2021-10-30] MEDS: ALBUTEROL SULFATE NEB 2.5 MG/3 ML INH 5 MG INHALATION ×2 (18:26→20:43)
[2021-10-30] MEDS: IPRATROPIUM BR 0.02% INH SOLN 0.5 MG/2.5 ML VIAL INHALATION ×2 (18:26→20:43)
--- NOTE | 2021-10-30 19:02 | PC.NURSE ---
Incontinent of large amount urine. Colostomy emptied with large amount stool.
--- NOTE | 2021-10-30 19:03 | PC.NURSE ---
Pt refuses to use bipap.
--- NOTE | 2021-10-30 19:10 | PCRCNOTE ---
patient refused use of NIV until she is provided dinner; Dr. Lin aware
[2021-10-30 19:42] LABS: Alanine Aminotransferase 18 U/L (6-35); Alkaline Phosphatase 78 U/L (38-126); Anion Gap 7 mmol/L (8-16); Aspartate Amino Transferase 32 U/L (14-36); Bilirubin,Total 0.3 mg/dL (0.2-1.3); Blood Urea Nitrogen 34 mg/dL (7-17); Carbon Dioxide 28 mmol/L (22-30); Chloride 104 mmol/L (98-107); Estimated CRCL calculation 49 ml/min; Estimated Glomerular Filt Rate 31; Glucose 186 mg/dL (65-110); Potassium 4.4 mmol/L (3.4-5.0); Sodium 139 mmol/L (137-145)
[2021-10-30 19:47] LABS: Albumin Level 3.5 g/dL (3.5-5.1)
--- NOTE | 2021-10-30 20:25 | PC.NURSE ---
this tech told the pt to hit her call light whenever she needs to urinate, pt told me that she never knows when she needs to urinate and it comes to fast for her to notify staff. this tech asked the MD if we could put a russ in and MD agreed
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
--- NOTE | 2021-10-30 21:39 | ADMGEN ---
This patient, Josy Perez, was admitted to IMU Room 202- at 2105. Patient/family oriented to hospital policies and general routines including ID bracelet, bed and alarms, visiting hours, pain management, procedures, bathroom and other care routines, personal items, smoking policy, room service/diet, and visiting hours. Information on how to activate the Rapid Response Team has been discussed. Patient/Family are encouraged to report perceived risks to care and to ask questions if they do not understand what they are told or what they should do.
--- NOTE | 2021-10-30 21:39 | PC.NURSE ---
photo's taken of wounds on coccyx and bilateral heels. preventative mepilex on coccyx, and bilateral heels cleansed with saline and redressed with telfa and wraps.
[2021-10-30 22:13] LABS: Troponin I < 0.012 ng/mL (0.000-0.034)
[2021-10-31] VITALS (17 sets, daily range): BP systolic 151–193; BP diastolic 79–95; PULSE 83–93; RESP 14–22; TEMP 36.3–37.4; O2SAT 90–94; BMI 46.7
[2021-10-31] MEDS: methylPREDNISolone SOD SUCC 125 MG VIAL 60 MG IV PUSH ×3 (00:16→13:02)
--- NOTE | 2021-10-31 00:47 | PC.NURSE ---
patient refusing labs to be drawn
[2021-10-31] MEDS: ALBUTEROL SULFATE NEB 2.5 MG/3 ML INH 5 MG INHALATION (02:10)
[2021-10-31] MEDS: IPRATROPIUM BR 0.02% INH SOLN 0.5 MG/2.5 ML VIAL INHALATION ×3 (02:10→20:08)
--- NOTE | 2021-10-31 02:13 | PCRCNOTE ---
Pt will not keep BIPAP on. Pt stated 'I don't like it.' RT and RN have both informed the pt that wearing the BIPAP will improve pts vital signs and ADL's. Pt still uncompliant.
--- NOTE | 2021-10-31 05:18 | PC.NURSE ---
patient refused morning labs because they just took blood for abg's. so she will not let us get more. patient stated that's crazy .
[2021-10-31 05:19] LABS: Alveolar/Arterial O2 Gradient 189.2 mmHg; Base Excess ABG -2.4 mEq/l (+/-2.0); Carboxyhemoglobin 1.8 % THb (0-2.0); Fractional Inspired Oxygen 44 %; HCO3 ABG 25.2 mEq/l (22.0-26.0); Methemoglobin ABG 0.2 %THb (0-1.5); Oxygen Content ABG 14.8 %vol (16.0-22.0); PO2 ABG 60.7 mmHg (80.0-100.0); PO2 FiO2 Ratio Arterial Blood 1.38 %; Reduced Hemoglobin 10.9 %THb (0-5.0); Total Hemoglobin 12.1 g/dL (12.0-18.0)
[2021-10-31 05:20] LABS: pH ABG 7.271 (7.350-7.450)
[2021-10-31 05:21] LABS: Oxygen Saturation ABG 87.5 % (95.0-100.0)
[2021-10-31 05:22] LABS: Device NASAL CANNULA; Modified Allen's Test Unable to perform; Oxyhemoglobin 87.1 % THb (90.0-100.0); Site Drawn LEFT RADIAL
--- NOTE | 2021-10-31 05:23 | PCRCNOTE ---
RT OBTAINED A MIXED ARTERIAL AND VENOUS SAMPLE. PT WILL NOT HOLD STILL AND WILL NOT ALLOW RT TO DRAW A MORE ACCURATE ABG.
--- NOTE | 2021-10-31 06:39 | PC.NURSE ---
patient pulled out iv access. patient stated that she didn't mean it. audra from vascular access if aware and is going to try to get one in patient.
--- NOTE | 2021-10-31 07:55 | PM.IMPN ---
Progress Note: A&P Assessment and Plan (1) Acute on chronic respiratory failure with hypoxia and hypercapnia: Code(s): J96.21 - Acute and chronic respiratory failure with hypoxia; J96.22 - Acute and chronic respiratory failure with hypercapnia Status: Acute Assessment and Plan: Tobacco dependence w/ COPD. BNP 2670 w/ CXR with pulmonary vacular congestion suggesting decompensated heart failure. Lung exam c/w COPD exacerbation. COVID19. -Chen to monitor UOP -Furosemide 40 mg IV BID -Rapid flu -Strict I&OS -Methylprednisolone 60 mg IV q8h -Duonebs q4h (2) CHF (congestive heart failure): Code(s): I50.9 - Heart failure, unspecified Status: Acute Assessment and Plan: Decompensated. BNP elevated and CXR with pulmonary vascular congestion with patient having increasing oxygen requirements. Echo 08/03/21 EF 60-65% with diastolic dysfunction. Takes furosemide 40 mg po daily at home. Will hold for now. -Furosemide 40 mg IV BID -Replete lytes (3) COPD with acute exacerbation: Code(s): J44.1 - Chronic obstructive pulmonary disease with (acute) exacerbation Status: Acute Assessment and Plan: -Duoneb q4h -Methylprednisolone 60 mg IV q8h (4) Chronic kidney disease, stage 3: Qualifiers: Chronic kidney disease stage 3 subtype: stage 3b (GFR 30-44) Qualified Code(s): N18.32 - Chronic kidney disease, stage 3b Code(s): N18.30 - Chronic kidney disease, stage 3 unspecified Status: Acute Assessment and Plan: Since about 02/2020 baseline creatinine has been 1.7-1.8. Appears to be at baseline. (5) Diabetes mellitus with hyperglycemia: Code(s): E11.65 - Type 2 diabetes mellitus with hyperglycemia Status: Acute Assessment and Plan: Hyperglycemia likely due to steroids. Seems to have been 200s-400s for the past few hospitalizations. Takes glargine 40 units BID at home with lispro 6 units with meals. -Hemoglobin a1c -High dose sliding scale -Increased glargine to 42 units BID (6) Tobacco dependence: Code(s): F17.200 - Nicotine dependence, unspecified, uncomplicated Status: Chronic Subjective Date/time seen: 10/31/21 07:55 Patient denies having any pain. Denies having any shortness of breath or difficulty breathing. Says she would like to have her ears and nose cleaned. Review of Systems Respiratory: Respiratory: Denies dyspnea Exam Narrative: GENERAL: NAD, cooperative HEENT: Normocephalic, atraumatic, anicteric NECK: Supple CV: Normal S1, S2, RRR, No MRG RESP: Exam difficult due to patient body habitus and saying she cannot sit forward. Expiratory wheezes throughout anterior lung jones. EXTREMITIES: Warm and well perfused, no clubbing, cyanosis, or edema. SKIN: warm, dry and intact. NEURO: CN 2-12 grossly intact. Intellectual disability at baseline Objective Data Vital Signs Vital Signs: Vital Signs - 24 hr 10/30/21 17:02 10/30/21 17:08 10/30/21 17:08 Temperature 97.5 F L Pulse Rate 73 77 Respiratory Rate 24 H Blood Pressure 148/81 H Pulse Oximetry 80 L 94 Oxygen Delivery Room Air Nasal Cannula Oxygen Flow Rate 4 10/30/21 17:58 10/30/21 18:06 10/30/21 18:26 Temperature Pulse Rate 79 Respiratory Rate 14 Blood Pressure Pulse Oximetry 92 92 Oxygen Delivery Nasal Cannula Nasal Cannula Oxygen Flow Rate 5 6 10/30/21 18:35 10/30/21 17:47 10/30/21 17:59 Temperature Pulse Rate 78 76 80 Respiratory Rate 18 18 8 L Blood Pressure 170/93 H 168/97 H Pulse Oximetry 95 94 92 Oxygen Delivery Oxygen Flow Rate 10/30/21 18:00 10/30/21 18:01 10/30/21 18:37 Temperature Pulse Rate 78 78 78 Respiratory Rate 10 L 10 L 12 Blood Pressure 170/98 H Pulse Oximetry 88 L 85 L Oxygen Delivery Oxygen Flow Rate 10/30/21 20:47 10/30/21 21:15 10/30/21 18:02 Temperature Pulse Rate 90 77 Respiratory Rate 16 10 L Blood Pressure
[2021-10-31 08:03] LABS: Glucose Point of Care 427 mg/dl (65-105)
[2021-10-31] MEDS: ENOXAPARIN 40 MG/0.4 ML SYRINGE SUB-Q ×2 (09:00→20:54)
[2021-10-31] MEDS: CHOLECALCIFEROL 1,000 UNITS TABLET 2000 UNITS PO (09:01)
[2021-10-31] MEDS: hydrALAZINE HCL 50 MG TABLET PO ×2 (09:01→20:56)
[2021-10-31] MEDS: BENZONATATE 100 MG CAPSULE PO ×3 (09:01→16:38)
[2021-10-31] MEDS: TOLNAFTATE 1% POWDER 45 GM BTL 1 APPLIC TOPICAL ×2 (09:01→20:57)
[2021-10-31] MEDS: ASCORBIC ACID 500 MG TABLET PO ×2 (09:01→16:39)
[2021-10-31] MEDS: FERROUS SULFATE 324 MG TABLET PO ×2 (09:01→16:39)
[2021-10-31] MEDS: ESCITALOPRAM OXALATE 10 MG TABLET PO (09:01)
[2021-10-31] MEDS: GABAPENTIN 300 MG CAPSULE PO ×3 (09:01→16:39)
[2021-10-31] MEDS: amLODIPine BESYLATE 5 MG TABLET 10 MG PO (09:01)
[2021-10-31] MEDS: carvediloL 25 MG TABLET PO ×2 (09:01→20:53)
[2021-10-31] MEDS: ASPIRIN 81 MG ENTERIC TABLET PO (09:01)
[2021-10-31] MEDS: MULTIVITAMINS /C LUTEIN (CENTRUM SILVER) TABLET *BKC 1 TAB PO (09:01)
[2021-10-31] MEDS: INSULIN ASPART (*BKC) 100 UNITS/ML SUB-Q ×3 (09:03→16:39)
[2021-10-31] MEDS: FUROSEMIDE INJ 40 MG/4 ML VIAL IV PUSH ×2 (09:03→16:39)
[2021-10-31] MEDS: INSULIN ASPART (*BKC) 100 UNITS/ML 6 UNITS SUB-Q ×3 (09:04→16:40)
[2021-10-31] MEDS: INSULIN GLARGINE (*BKC) 100 UNITS/ML 40 UNITS SUB-Q (09:04)
--- NOTE | 2021-10-31 09:24 | PCRCNOTE ---
Window of time for administration has passed. See next scheduled administration.
[2021-10-31 12:07] LABS: Glucose Point of Care 377 mg/dl (65-105)
[2021-10-31] MEDS: SILVERGEL (ELTA) 45 ML 1 APPLIC TOPICAL (13:03)
[2021-10-31] MEDS: ALBUTEROL SULFATE NEB 2.5 MG/0.5 ML INH 5 MG INHALATION ×2 (14:21→20:07)
--- NOTE | 2021-10-31 15:05 | PCNSR ---
On 10/31/21, the student, Carmen Ha, provided care and completed [facility] documentation on this patient. I have reviewed the student's documentation and agree with the findings.
[2021-10-31 16:06] LABS: Glucose Point of Care 357 mg/dl (65-105)
[2021-10-31 16:22] LABS: Basophils Percent Auto 0.2 % (0.2-1.2); Hemoglobin 11.1 g/dL (12.0-15.0); Immature Granulocyte Absolute 0.18 K/mm3 (0.00-0.031); Immature Granulocyte Percent A 2.2 % (0-0.5); Lymphocytes Absolute Auto 1.01 K/mm3 (0.9-3.2); Lymphocytes Percent Auto 12.2 % (18.3-44.2); Mean Corpuscular HGB Conc 28.5 g/dl (32-36); Mean Corpuscular Hemoglobin 24.2 pg (26-34); Mean Platelet Volume 9.9 fl (7.4-10.4); Monocytes Absolute Auto 0.5 K/mm3 (0.1-0.6); Monocytes Percent Auto 5.6 % (2.6-8.5); Neutrophils Absolute Auto 6.6 K/mm3 (1.3-6.7); Neutrophils Percent Auto 79.8 % (45.5-73.1); Nucleated Red Blood Cells Absolute Auto 0.1 K/mm3 (0.0-0.012); Nucleated Red Blood Cells Perc 0.7 % (0.0-0.2); Platelet Count Result 279 k/mm3 (150-375); Red Blood Count 4.59 M/mm3 (4.2-5.4); Red Cell Distribution Width 24.5 % (11.5-14.5); White Blood Count 8.3 K/mm3 (4.5-10.0)
[2021-10-31 16:34] LABS: Anion Gap 9 mmol/L (8-16); Blood Urea Nitrogen 38 mg/dL (7-17); Calcium 8.3 mg/dL (8.4-10.2); Carbon Dioxide 28 mmol/L (22-30); Chloride 99 mmol/L (98-107); Estimated CRCL calculation 50 ml/min; Estimated Glomerular Filt Rate 31; Glucose 365 mg/dL (65-110); Magnesium 2.2 mg/dL (1.6-2.3); Phosphorus 5.3 mg/dL (2.5-4.5); Potassium 4.1 mmol/L (3.4-5.0); Sodium 136 mmol/L (137-145)
[2021-10-31] MEDS: hydrALAZINE HCL 20 MG/ML VIAL 10 MG IV PUSH (16:38)
[2021-10-31 17:10] LABS: Procalcitonin 0.1 ng/mL
[2021-10-31 17:45] LABS: Glucose Point of Care 350 mg/dl (65-105)
[2021-10-31 17:46] LABS: Anisocytosis 3+ (NORMAL); Hypochromasia 1+ (NORMAL); Platelet Estimate Adequate (Adequate)
--- NOTE | 2021-10-31 17:53 | ADMGEN ---
This patient, Josy Perez, was admitted to [facility] Room 317-01 at 1700. Patient/family oriented to hospital policies and general routines including ID bracelet, bed and alarms, visiting hours, pain management, procedures, bathroom and other care routines, personal items, smoking policy, room service/diet, and visiting hours. Information on how to activate the Rapid Response Team has been discussed. Patient/Family are encouraged to report perceived risks to care and to ask questions if they do not understand what they are told or what they should do.
[2021-10-31 20:07] LABS: Alanine Aminotransferase 17 U/L (6-35); Albumin Level 3.5 g/dL (3.5-5.1); Alkaline Phosphatase 94 U/L (38-126); Aspartate Amino Transferase 18 U/L (14-36); Bilirubin,Total 0.2 mg/dL (0.2-1.3)
[2021-10-31] MEDS: ATORVASTATIN 40 MG TABLET PO (20:53)
[2021-10-31] MEDS: hydrOXYzine HCL 25 MG TABLET PO (20:56)
[2021-10-31] MEDS: INSULIN GLARGINE (*BKC) 100 UNITS/ML 42 UNITS SUB-Q (20:57)
[2021-10-31] MEDS: QUEtiapine FUMARATE XR 50 MG TAB.ER.24H 150 MG PO (20:58)
[2021-10-31] MEDS: OLANZapine 5 MG TABLET PO (20:58)
--- NOTE | 2021-10-31 21:07 | PC.NURSE ---
pt refuses solu-medrol at this time because she states it will make her bigger . pt still refuses solu-medrol after education and wants her refusal to be documented
[2021-10-31 21:18] LABS: Glucose Point of Care 318 mg/dl (65-105)
[2021-11-01] VITALS (19 sets, daily range): BP systolic 128–175; BP diastolic 65–87; PULSE 60–100; RESP 16–22; TEMP 36.2–37.1; O2SAT 80–96
[2021-11-01 05:57] LABS: Basophils Percent Auto 0.2 % (0.2-1.2); Hematocrit 38.6 % (37.0-47.0); Hemoglobin 10.9 g/dL (12.0-15.0); Immature Granulocyte Absolute 0.15 K/mm3 (0.00-0.031); Immature Granulocyte Percent A 1.5 % (0-0.5); Lymphocytes Percent Auto 17.6 % (18.3-44.2); Mean Corpuscular HGB Conc 28.2 g/dl (32-36); Mean Corpuscular Hemoglobin 24.3 pg (26-34); Mean Platelet Volume 9.6 fl (7.4-10.4); Monocytes Percent Auto 9.8 % (2.6-8.5); Neutrophils Absolute Auto 7.3 K/mm3 (1.3-6.7); Neutrophils Percent Auto 70.9 % (45.5-73.1); Nucleated Red Blood Cells Perc 0.2 % (0.0-0.2); Platelet Count Result 260 k/mm3 (150-375); Red Blood Count 4.49 M/mm3 (4.2-5.4); Red Cell Distribution Width 24.4 % (11.5-14.5); White Blood Count 10.2 K/mm3 (4.5-10.0)
[2021-11-01 06:06] LABS: Anion Gap 5 mmol/L (8-16); Blood Urea Nitrogen 40 mg/dL (7-17); Carbon Dioxide 31 mmol/L (22-30); Chloride 100 mmol/L (98-107); Estimated CRCL calculation 47 ml/min; Estimated Glomerular Filt Rate 29; Glucose 258 mg/dL (65-110); Potassium 3.9 mmol/L (3.4-5.0); Sodium 136 mmol/L (137-145)
[2021-11-01] MEDS: hydrALAZINE HCL 20 MG/ML VIAL 10 MG IV PUSH (06:10)
[2021-11-01 06:35] LABS: Anisocytosis 1+ (NORMAL); Macrocytosis 1+ (NORMAL); Platelet Estimate Adequate (Adequate); Poikilocytosis 1+ (NORMAL)
--- NOTE | 2021-11-01 07:24 | PM.IMPN ---
Progress Note: A&P Assessment and Plan (1) Acute on chronic respiratory failure with hypoxia and hypercapnia: Code(s): J96.21 - Acute and chronic respiratory failure with hypoxia; J96.22 - Acute and chronic respiratory failure with hypercapnia Status: Acute Assessment and Plan: Tobacco dependence w/ COPD. BNP 2670 w/ CXR with pulmonary vacular congestion suggesting decompensated heart failure. Lung exam c/w COPD exacerbation. COVID19. -Chen to monitor UOP -Furosemide 40 mg IV BID -Rapid flu -Strict I&OS -Methylprednisolone 60 mg IV q8h -Duonebs q4h (2) CHF (congestive heart failure): Code(s): I50.9 - Heart failure, unspecified Status: Acute Assessment and Plan: Decompensated. BNP elevated and CXR with pulmonary vascular congestion with patient having increasing oxygen requirements. Echo 08/03/21 EF 60-65% with diastolic dysfunction. Takes furosemide 40 mg po daily at home. Positive 540. -Furosemide 20 mg IV BID -Replete lytes -Will add fluid restriction (3) COPD with acute exacerbation: Code(s): J44.1 - Chronic obstructive pulmonary disease with (acute) exacerbation Status: Acute Assessment and Plan: Appears to be significantly improved this morning. From the limited exam there was significntly less wheezing and patient is down to 5LNC. Per care coordination, who called her facility patient uses 2.5LNC, so treatment will need to continue until she is near 2.5LNC. Also, patient frequently removes the oxygen as she was not wearing it the entire time I was in the room this morning. -Will change methylprednisolone to 60 IV BID -Continue scheduled duo nebs -Ordered continuous pulse oximetry (4) Chronic kidney disease, stage 3: Qualifiers: Chronic kidney disease stage 3 subtype: stage 3b (GFR 30-44) Qualified Code(s): N18.32 - Chronic kidney disease, stage 3b Code(s): N18.30 - Chronic kidney disease, stage 3 unspecified Status: Acute Assessment and Plan: Since about 02/2020 baseline creatinine has been 1.7-1.8. Appears to be at baseline. (5) Diabetes mellitus with hyperglycemia: Code(s): E11.65 - Type 2 diabetes mellitus with hyperglycemia Status: Acute Assessment and Plan: Hyperglycemia likely due to steroids. Seems to have been 200s-400s for the past few hospitalizations. Takes glargine 40 units BID at home with lispro 6 units with meals. -Hemoglobin a1c -High dose sliding scale -Increased glargine to 42 units BID -Will increase scheduled aspart to 8 units TIDWM (6) Tobacco dependence: Code(s): F17.200 - Nicotine dependence, unspecified, uncomplicated Status: Chronic Subjective Date/time seen: 11/01/21 07:24 Patient refuses to cooperate with exam and interview lying in bed with her head covered with a blank. Review of Systems Review of Systems: Patient refuses to answer questions. ROS unobtainable: Yes other Exam Narrative: GENERAL: NAD, cooperative HEENT: Normocephalic, atraumatic, anicteric NECK: Supple CV: Normal S1, S2, RRR, No MRG RESP: No wheezes or crackles in anterior lung jones or posterior upper lung ojnes. EXTREMITIES: Warm and well perfused, no clubbing, cyanosis, or edema. SKIN: warm, dry and intact. NEURO: CN 2-12 grossly intact. Intellectual disability at baseline Objective Data Vital Signs Vital Signs: Vital Signs - 24 hr 10/31/21 08:00 10/31/21 08:00 10/31/21 12:00 Temperature 99.1 F 99.3 F Pulse Rate 89 88 Respiratory Rate 14 14 Blood Pressure 193/95 H 176/94 H Pulse Oximetry 91 91 90 Oxygen Delivery Nasal Cannula Oxygen Flow Rate 5 10/31/21 12:00 10/31/21 08:00 10/31/21 12:00 Temperature Pulse Rate 91 90 Respiratory Rate Blood Pressure Pulse Oximetry 91 Oxygen Delivery Nasal Cannula Oxygen Flow Rate 5 10/31/21 10:00 10/31/21 14:00 10/31/21 14:20 Temperature Pulse Rate 88 86 Respi
[2021-11-01 08:04] LABS: Glucose Point of Care 237 mg/dl (65-105)
[2021-11-01] MEDS: ALBUTEROL SULFATE NEB 2.5 MG/0.5 ML INH 5 MG INHALATION ×5 (08:04→23:56)
[2021-11-01] MEDS: IPRATROPIUM BR 0.02% INH SOLN 0.5 MG/2.5 ML VIAL INHALATION ×5 (08:05→23:56)
[2021-11-01] MEDS: INSULIN ASPART (*BKC) 100 UNITS/ML 6 UNITS SUB-Q ×2 (08:49→12:40)
[2021-11-01] MEDS: INSULIN ASPART (*BKC) 100 UNITS/ML SUB-Q ×2 (08:49→12:39)
[2021-11-01] MEDS: ENOXAPARIN 40 MG/0.4 ML SYRINGE SUB-Q ×2 (08:50→20:13)
[2021-11-01] MEDS: GABAPENTIN 300 MG CAPSULE PO ×3 (08:50→17:41)
[2021-11-01] MEDS: ASPIRIN 81 MG ENTERIC TABLET PO (08:50)
[2021-11-01] MEDS: SILVERGEL (ELTA) 45 ML 1 APPLIC TOPICAL (08:50)
[2021-11-01] MEDS: CHOLECALCIFEROL 1,000 UNITS TABLET 2000 UNITS PO (08:50)
[2021-11-01] MEDS: TOLNAFTATE 1% POWDER 45 GM BTL 1 APPLIC TOPICAL ×2 (08:50→20:16)
[2021-11-01] MEDS: hydrALAZINE HCL 50 MG TABLET PO ×2 (08:50→20:14)
[2021-11-01] MEDS: amLODIPine BESYLATE 5 MG TABLET 10 MG PO (08:51)
[2021-11-01] MEDS: carvediloL 25 MG TABLET PO ×2 (08:51→20:13)
[2021-11-01] MEDS: FERROUS SULFATE 324 MG TABLET PO ×2 (08:52→17:42)
[2021-11-01] MEDS: BENZONATATE 100 MG CAPSULE PO ×3 (08:52→17:42)
[2021-11-01] MEDS: ASCORBIC ACID 500 MG TABLET PO ×2 (08:52→17:42)
[2021-11-01] MEDS: ESCITALOPRAM OXALATE 10 MG TABLET PO (08:52)
[2021-11-01] MEDS: MULTIVITAMINS /C LUTEIN (CENTRUM SILVER) TABLET *BKC 1 TAB PO (08:52)
[2021-11-01] MEDS: INSULIN GLARGINE (*BKC) 100 UNITS/ML 42 UNITS SUB-Q ×2 (08:53→20:15)
[2021-11-01 12:04] LABS: Glucose Point of Care 214 mg/dl (65-105)
[2021-11-01 17:08] LABS: Glucose Point of Care 161 mg/dl (65-105)
[2021-11-01] MEDS: methylPREDNISolone SOD SUCC 125 MG VIAL 60 MG IV PUSH (17:43)
[2021-11-01] MEDS: FUROSEMIDE INJ 40 MG/4 ML VIAL 20 MG IV PUSH (17:43)
[2021-11-01] MEDS: INSULIN ASPART (*BKC) 100 UNITS/ML 8 UNITS SUB-Q (17:43)
[2021-11-01] MEDS: OLANZapine 5 MG TABLET PO (20:13)
[2021-11-01] MEDS: QUEtiapine FUMARATE XR 50 MG TAB.ER.24H 150 MG PO (20:13)
[2021-11-01] MEDS: hydrOXYzine HCL 25 MG TABLET PO (20:13)
[2021-11-01] MEDS: ATORVASTATIN 40 MG TABLET PO (20:15)
[2021-11-01 20:33] LABS: Glucose Point of Care 212 mg/dl (65-105)
[2021-11-02] VITALS (20 sets, daily range): BP systolic 153–163; BP diastolic 72–94; PULSE 65–100; RESP 14–20; TEMP 36.1–36.3; O2SAT 91–95
--- NOTE | 2021-11-02 | PCRCNOTE ---
Patient refuses to wear Bipap at this time.
[2021-11-02] MEDS: hydrALAZINE HCL 20 MG/ML VIAL 10 MG IV PUSH (00:07)
[2021-11-02] MEDS: IPRATROPIUM BR 0.02% INH SOLN 0.5 MG/2.5 ML VIAL INHALATION ×4 (03:49→20:11)
[2021-11-02] MEDS: ALBUTEROL SULFATE NEB 2.5 MG/0.5 ML INH 5 MG INHALATION ×4 (03:49→20:11)
--- NOTE | 2021-11-02 03:50 | PCRCNOTE ---
Patient constantly removing oxygen during typewriter mechanic's shift. SPO2 anywhere between 78% and 80% when found on room air. Solutions Architect placed oxygen back on patient and educated on the importance of keeping her oxygen on. She states she understands but doesn't like to wear it.
[2021-11-02 06:15] LABS: Basophils Percent Auto 0.3 % (0.2-1.2); Hematocrit 38.5 % (37.0-47.0); Hemoglobin 10.9 g/dL (12.0-15.0); Immature Granulocyte Absolute 0.14 K/mm3 (0.00-0.031); Immature Granulocyte Percent A 1.5 % (0-0.5); Lymphocytes Absolute Auto 1.12 K/mm3 (0.9-3.2); Lymphocytes Percent Auto 11.7 % (18.3-44.2); Mean Corpuscular HGB Conc 28.3 g/dl (32-36); Mean Corpuscular Hemoglobin 24.4 pg (26-34); Mean Corpuscular Volume 86.1 fl (80-100); Monocytes Absolute Auto 0.4 K/mm3 (0.1-0.6); Neutrophils Absolute Auto 7.9 K/mm3 (1.3-6.7); Neutrophils Percent Auto 82.5 % (45.5-73.1); Platelet Count Result 251 k/mm3 (150-375); Red Blood Count 4.47 M/mm3 (4.2-5.4); Red Cell Distribution Width 24.5 % (11.5-14.5); White Blood Count 9.6 K/mm3 (4.5-10.0)
[2021-11-02 06:39] LABS: Anion Gap 7 mmol/L (8-16); Blood Urea Nitrogen 53 mg/dL (7-17); Calcium 8.1 mg/dL (8.4-10.2); Carbon Dioxide 26 mmol/L (22-30); Chloride 103 mmol/L (98-107); Estimated CRCL calculation 41 ml/min; Estimated Glomerular Filt Rate 25; Glucose 292 mg/dL (65-110); Potassium 4.2 mmol/L (3.4-5.0); Sodium 136 mmol/L (137-145)
[2021-11-02 07:38] LABS: Anisocytosis 1+ (NORMAL); Platelet Estimate Adequate (Adequate); Poikilocytosis 1+ (NORMAL)
[2021-11-02 07:57] LABS: Glucose Point of Care 299 mg/dl (65-105)
--- NOTE | 2021-11-02 08:38 | PM.IMPN ---
Progress Note: A&P Assessment and Plan (1) Acute on chronic respiratory failure with hypoxia and hypercapnia: Code(s): J96.21 - Acute and chronic respiratory failure with hypoxia; J96.22 - Acute and chronic respiratory failure with hypercapnia Status: Acute Assessment and Plan: Tobacco dependence w/ COPD. BNP 2670 w/ CXR with pulmonary vacular congestion suggesting decompensated heart failure. Lung exam c/w COPD exacerbation. COVID19 negative. Flu negative. Urine pneumococcal & legionella negative. Improved. -Chen to monitor UOP -Discontinue furosemide -Will transition to oral steroids tomorrow -Methylprednisolone 60 mg IV q12h -Duonebs q4h (2) CHF (congestive heart failure): Code(s): I50.9 - Heart failure, unspecified Status: Acute Assessment and Plan: Decompensated. BNP elevated and CXR with pulmonary vascular congestion with patient having increasing oxygen requirements. Echo 08/03/21 EF 60-65% with diastolic dysfunction. Takes furosemide 40 mg po daily at home. This has improved. -Holding furosemide due to CHRIS. (3) COPD with acute exacerbation: Code(s): J44.1 - Chronic obstructive pulmonary disease with (acute) exacerbation Status: Acute Assessment and Plan: Appears to be significantly improved this morning. From the limited exam there was significntly less wheezing and patient is down to 5LNC. Per care coordination, who called her facility patient uses 2.5LNC, so treatment will need to continue until she is near 2.5LNC. Also, patient frequently removes the oxygen as she was not wearing it the entire time I was in the room this morning. -Methylprednisolone to 60 IV BID -Continue scheduled duo nebs -Ordered continuous pulse oximetry (4) Chronic kidney disease, stage 3: Qualifiers: Chronic kidney disease stage 3 subtype: stage 3b (GFR 30-44) Qualified Code(s): N18.32 - Chronic kidney disease, stage 3b Code(s): N18.30 - Chronic kidney disease, stage 3 unspecified Status: Acute Assessment and Plan: Since about 02/2020 baseline creatinine has been 1.7-1.8. CHRIS this morning. Gave LR 250cc, discontinued furosemide and fluid restrictions. Will recheck BMP in the morning. (5) Diabetes mellitus with hyperglycemia: Code(s): E11.65 - Type 2 diabetes mellitus with hyperglycemia Status: Acute Assessment and Plan: Hyperglycemia likely due to steroids. Seems to have been 200s-400s for the past few hospitalizations. Takes glargine 40 units BID at home with lispro 6 units with meals. Hemoglobin a1c 9.0. -High dose sliding scale -Glargine to 42 units BID -Aspart to 8 units TIDWM (6) Tobacco dependence: Code(s): F17.200 - Nicotine dependence, unspecified, uncomplicated Status: Chronic (7) Nasal congestion: Code(s): R09.81 - Nasal congestion Status: Acute Assessment and Plan: -Phenylephrine BID x 72 hours -Fluticasone BID Subjective Date/time seen: 11/02/21 08:38 Patient says she feels better. Says she has congestion and rhinorrhea. Says she would like someone to clean out her ears and nose. Review of Systems ENT: Reports nasal congestion and Reports nasal discharge Exam Narrative: GENERAL: NAD, cooperative HEENT: Normocephalic, atraumatic, anicteric NECK: Supple CV: Normal S1, S2, RRR, No MRG RESP: No wheezes or crackles. Improved air movement. EXTREMITIES: Warm and well perfused, no clubbing, cyanosis, or edema. SKIN: warm, dry and intact. NEURO: CN 2-12 grossly intact. Intellectual disability at baseline Objective Data Vital Signs Vital Signs: Vital Signs - 24 hr 11/01/21 08:51 11/01/21 11:21 11/01/21 12:00 Temperature 97.1 F L Pulse Rate 60 69 Respiratory Rate 16 18 Blood Pressure 128/65 Pulse Oximetry 85 L Oxygen Delivery Oxygen Flow Rate 11/01/21 15:09 11/01/21 15:35 11/01/21 11:40 Temperature Pulse
[2021-11-02] MEDS: CHOLECALCIFEROL 1,000 UNITS TABLET 2000 UNITS PO (08:40)
[2021-11-02] MEDS: hydrALAZINE HCL 50 MG TABLET PO ×2 (08:40→20:26)
[2021-11-02] MEDS: ASCORBIC ACID 500 MG TABLET PO ×2 (08:40→17:45)
[2021-11-02] MEDS: carvediloL 25 MG TABLET PO ×2 (08:41→20:26)
[2021-11-02] MEDS: ESCITALOPRAM OXALATE 10 MG TABLET PO (08:41)
[2021-11-02] MEDS: MULTIVITAMINS /C LUTEIN (CENTRUM SILVER) TABLET *BKC 1 TAB PO (08:41)
[2021-11-02] MEDS: GABAPENTIN 300 MG CAPSULE PO ×3 (08:41→17:43)
[2021-11-02] MEDS: ENOXAPARIN 40 MG/0.4 ML SYRINGE SUB-Q ×2 (08:42→20:26)
[2021-11-02] MEDS: ASPIRIN 81 MG ENTERIC TABLET PO (08:42)
[2021-11-02] MEDS: methylPREDNISolone SOD SUCC 125 MG VIAL 60 MG IV PUSH ×2 (08:42→17:49)
[2021-11-02] MEDS: amLODIPine BESYLATE 5 MG TABLET 10 MG PO (08:42)
[2021-11-02] MEDS: INSULIN GLARGINE (*BKC) 100 UNITS/ML 42 UNITS SUB-Q ×2 (08:43→20:22)
[2021-11-02] MEDS: BENZONATATE 100 MG CAPSULE PO ×3 (08:43→17:43)
[2021-11-02] MEDS: INSULIN ASPART (*BKC) 100 UNITS/ML SUB-Q ×3 (08:45→17:48)
[2021-11-02] MEDS: SILVERGEL (ELTA) 45 ML 1 APPLIC TOPICAL (08:46)
[2021-11-02] MEDS: INSULIN ASPART (*BKC) 100 UNITS/ML 8 UNITS SUB-Q ×3 (08:46→17:47)
[2021-11-02] MEDS: TOLNAFTATE 1% POWDER 45 GM BTL 1 APPLIC TOPICAL ×2 (08:46→20:27)
[2021-11-02] MEDS: LACTATED RINGERS 250 ML IV CONT (08:50)
[2021-11-02 11:53] LABS: Glucose Point of Care 287 mg/dl (65-105)
[2021-11-02] MEDS: PHENYLEPHRINE 1% NA SPR (*BKC) 15 ML BTL 1 SPRAY NASAL ×2 (12:29→20:26)
[2021-11-02] MEDS: FLUTICASONE PROPIONATE 0.05% NA SPR 16 GM BTL (*BKC) 1 SPRAY NASAL ×2 (12:29→20:26)
[2021-11-02] MEDS: FERROUS SULFATE 324 MG TABLET PO ×2 (12:29→17:44)
[2021-11-02 17:29] LABS: Glucose Point of Care 290 mg/dl (65-105)
[2021-11-02] MEDS: ATORVASTATIN 40 MG TABLET PO (20:25)
[2021-11-02] MEDS: hydrOXYzine HCL 25 MG TABLET PO (20:26)
[2021-11-02] MEDS: QUEtiapine FUMARATE XR 50 MG TAB.ER.24H 150 MG PO (20:26)
[2021-11-02] MEDS: OLANZapine 5 MG TABLET PO (20:28)
[2021-11-02 20:42] LABS: Glucose Point of Care 325 mg/dl (65-105)
[2021-11-03] VITALS (16 sets, daily range): BP systolic 145–172; BP diastolic 70–97; PULSE 69–75; RESP 16–18; TEMP 36.3–37.6; O2SAT 92–96
--- NOTE | 2021-11-03 08:02 | PM.IMPN ---
Progress Note: A&P Assessment and Plan (1) Acute on chronic respiratory failure with hypoxia and hypercapnia: Code(s): J96.21 - Acute and chronic respiratory failure with hypoxia; J96.22 - Acute and chronic respiratory failure with hypercapnia Status: Acute Assessment and Plan: Tobacco dependence w/ COPD. BNP 2670 w/ CXR with pulmonary vacular congestion suggesting decompensated heart failure. Lung exam c/w COPD exacerbation. COVID19 negative. Flu negative. Urine pneumococcal & legionella negative. Continues to require 5LNC. No respiratory distress but desaturation when oxygen lowered. -CT chest ordered -May need pulmonology consult. Waiting until CT chest completed. Per chart review, patient has not been seen by our Pulmonology in the past. -Prednisone 40 mg po daily to end 11/04 unless symptoms are persistent -Duonebs q4h (2) CHF (congestive heart failure): Code(s): I50.9 - Heart failure, unspecified Status: Acute Assessment and Plan: Decompensated. BNP elevated and CXR with pulmonary vascular congestion with patient having increasing oxygen requirements. Echo 08/03/21 EF 60-65% with diastolic dysfunction. Takes furosemide 40 mg po daily at home. Appears euvolemic s/p diuresis. (3) COPD with acute exacerbation: Code(s): J44.1 - Chronic obstructive pulmonary disease with (acute) exacerbation Status: Acute Assessment and Plan: Appears to be significantly improved this morning. From the limited exam there was significntly less wheezing and patient is down to 5LNC. Per care coordination, who called her facility patient uses 2.5LNC, so treatment will need to continue until she is near 2.5LNC. Still requiring 5LNC. -Prednisone 40 mg po daily -Continue scheduled duo nebs -Ordered continuous pulse oximetry (4) Chronic kidney disease, stage 3: Qualifiers: Chronic kidney disease stage 3 subtype: stage 3b (GFR 30-44) Qualified Code(s): N18.32 - Chronic kidney disease, stage 3b Code(s): N18.30 - Chronic kidney disease, stage 3 unspecified Status: Acute Assessment and Plan: Since about 02/2020 baseline creatinine has been 1.7-1.8. CHRIS resolved. Creatinine is at baseline. (5) Diabetes mellitus with hyperglycemia: Code(s): E11.65 - Type 2 diabetes mellitus with hyperglycemia Status: Acute Assessment and Plan: Hyperglycemia likely due to steroids. Seems to have been 200s-400s for the past few hospitalizations. Takes glargine 40 units BID at home with lispro 6 units with meals. Hemoglobin a1c 9.0. -BG 200s-300s -High dose sliding scale -Glargine to 42 units BID -Aspart to 8 units TIDWM (6) Tobacco dependence: Code(s): F17.200 - Nicotine dependence, unspecified, uncomplicated Status: Chronic (7) Nasal congestion: Code(s): R09.81 - Nasal congestion Status: Acute Assessment and Plan: Improved. -Phenylephrine BID x 72 hours from 11/02 -Fluticasone BID Subjective Date/time seen: 11/03/21 08:02 Patient says she feels fine. She says her nasal congestion is better. Review of Systems ENT: Denies nasal congestion Exam Narrative: GENERAL: NAD, cooperative HEENT: Normocephalic, atraumatic, anicteric NECK: Supple CV: Normal S1, S2, RRR, No MRG RESP: Expiratory wheezes throughout. No crackles or rhonchi. EXTREMITIES: Warm and well perfused, no clubbing, cyanosis, or edema. SKIN: warm, dry and intact. NEURO: CN 2-12 grossly intact. Intellectual disability at baseline Objective Data Vital Signs Vital Signs: Vital Signs - 24 hr 11/02/21 08:13 11/02/21 08:14 11/02/21 08:25 Temperature Pulse Rate 67 100 68 Respiratory Rate 18 20 20 Blood Pressure Pulse Oximetry 95 Oxygen Delivery Nasal Cannula Oxygen Flow Rate 5 11/02/21 08:41 11/02/21 13:02 11/02/21 13:08 Temperature Pulse Rate 67 72 68 Respiratory Rate 18 20 Blood Pressur
[2021-11-03] MEDS: ALBUTEROL SULFATE NEB 2.5 MG/0.5 ML INH 5 MG INHALATION ×4 (08:03→21:19)
[2021-11-03] MEDS: IPRATROPIUM BR 0.02% INH SOLN 0.5 MG/2.5 ML VIAL INHALATION ×4 (08:04→21:19)
[2021-11-03 08:12] LABS: Glucose Point of Care 276 mg/dl (65-105)
[2021-11-03] MEDS: GABAPENTIN 300 MG CAPSULE PO ×3 (08:32→17:26)
[2021-11-03] MEDS: carvediloL 25 MG TABLET PO ×2 (08:32→21:19)
[2021-11-03] MEDS: predniSONE 20 MG TABLET 40 MG PO (08:33)
[2021-11-03] MEDS: BENZONATATE 100 MG CAPSULE PO ×3 (08:33→17:26)
[2021-11-03] MEDS: ASCORBIC ACID 500 MG TABLET PO ×2 (08:33→17:27)
[2021-11-03] MEDS: FLUTICASONE PROPIONATE 0.05% NA SPR 16 GM BTL (*BKC) 1 SPRAY NASAL ×2 (08:34→21:19)
[2021-11-03] MEDS: hydrALAZINE HCL 50 MG TABLET PO ×2 (08:34→21:19)
[2021-11-03] MEDS: ASPIRIN 81 MG ENTERIC TABLET PO (08:34)
[2021-11-03] MEDS: MULTIVITAMINS /C LUTEIN (CENTRUM SILVER) TABLET *BKC 1 TAB PO (08:34)
[2021-11-03] MEDS: ESCITALOPRAM OXALATE 10 MG TABLET PO (08:34)
[2021-11-03] MEDS: CHOLECALCIFEROL 1,000 UNITS TABLET 2000 UNITS PO (08:34)
[2021-11-03] MEDS: amLODIPine BESYLATE 5 MG TABLET 10 MG PO (08:34)
[2021-11-03] MEDS: ENOXAPARIN 40 MG/0.4 ML SYRINGE SUB-Q ×2 (08:34→21:19)
[2021-11-03] MEDS: TOLNAFTATE 1% POWDER 45 GM BTL 1 APPLIC TOPICAL ×2 (08:35→21:35)
[2021-11-03] MEDS: PHENYLEPHRINE 1% NA SPR (*BKC) 15 ML BTL 1 SPRAY NASAL ×2 (08:35→21:19)
[2021-11-03] MEDS: SILVERGEL (ELTA) 45 ML 1 APPLIC TOPICAL (08:35)
[2021-11-03] MEDS: FERROUS SULFATE 324 MG TABLET PO ×2 (08:35→17:27)
[2021-11-03] MEDS: INSULIN GLARGINE (*BKC) 100 UNITS/ML 42 UNITS SUB-Q ×2 (08:38→21:35)
[2021-11-03] MEDS: INSULIN ASPART (*BKC) 100 UNITS/ML SUB-Q ×3 (08:38→17:25)
[2021-11-03] MEDS: INSULIN ASPART (*BKC) 100 UNITS/ML 8 UNITS SUB-Q ×3 (08:38→17:26)
[2021-11-03 08:48] LABS: Anion Gap 5 mmol/L (8-16); Blood Urea Nitrogen 67 mg/dL (7-17); Calcium 8.4 mg/dL (8.4-10.2); Carbon Dioxide 31 mmol/L (22-30); Chloride 101 mmol/L (98-107); Estimated CRCL calculation 47 ml/min; Estimated Glomerular Filt Rate 29; Glucose 295 mg/dL (65-110); Potassium 4.4 mmol/L (3.4-5.0); Sodium 137 mmol/L (137-145)
[2021-11-03 11:45] LABS: Glucose Point of Care 357 mg/dl (65-105)
[2021-11-03 16:49] LABS: Glucose Point of Care 313 mg/dl (65-105)
[2021-11-03 20:40] LABS: Glucose Point of Care 309 mg/dl (65-105)
[2021-11-03] MEDS: hydrOXYzine HCL 25 MG TABLET PO (21:19)
[2021-11-03] MEDS: QUEtiapine FUMARATE XR 50 MG TAB.ER.24H 150 MG PO (21:19)
[2021-11-03] MEDS: ATORVASTATIN 40 MG TABLET PO (21:20)
[2021-11-03] MEDS: OLANZapine 5 MG TABLET PO (21:20)
[2021-11-04] VITALS (12 sets, daily range): BP systolic 150–164; BP diastolic 79–94; PULSE 62–96; RESP 18–20; TEMP 36.1–36.7; O2SAT 88–97
[2021-11-04 06:35] LABS: Anion Gap 5 mmol/L (8-16); Blood Urea Nitrogen 73 mg/dL (7-17); Calcium 8.2 mg/dL (8.4-10.2); Carbon Dioxide 30 mmol/L (22-30); Chloride 101 mmol/L (98-107); Estimated CRCL calculation 50 ml/min; Estimated Glomerular Filt Rate 31; Glucose 207 mg/dL (65-110); Potassium 4.3 mmol/L (3.4-5.0); Sodium 136 mmol/L (137-145)
[2021-11-04] MEDS: ALBUTEROL SULFATE NEB 2.5 MG/0.5 ML INH 5 MG INHALATION ×3 (08:11→23:58)
[2021-11-04] MEDS: IPRATROPIUM BR 0.02% INH SOLN 0.5 MG/2.5 ML VIAL INHALATION ×3 (08:12→23:58)
[2021-11-04 08:53] LABS: Glucose Point of Care 193 mg/dl (65-105)
[2021-11-04] MEDS: INSULIN GLARGINE (*BKC) 100 UNITS/ML 42 UNITS SUB-Q ×2 (10:15→22:42)
[2021-11-04] MEDS: INSULIN ASPART (*BKC) 100 UNITS/ML 8 UNITS SUB-Q ×3 (10:15→17:07)
[2021-11-04] MEDS: PHENYLEPHRINE 1% NA SPR (*BKC) 15 ML BTL 1 SPRAY NASAL ×2 (10:19→21:14)
[2021-11-04] MEDS: FLUTICASONE PROPIONATE 0.05% NA SPR 16 GM BTL (*BKC) 1 SPRAY NASAL ×2 (10:19→21:15)
[2021-11-04] MEDS: amLODIPine BESYLATE 5 MG TABLET 10 MG PO (10:20)
[2021-11-04] MEDS: ENOXAPARIN 40 MG/0.4 ML SYRINGE SUB-Q ×2 (10:20→21:16)
[2021-11-04] MEDS: cloNIDine 0.2 MG/24 HR PATCH 1 PATCH TRANSDERM (10:20)
[2021-11-04] MEDS: carvediloL 25 MG TABLET PO ×2 (10:21→21:14)
[2021-11-04] MEDS: predniSONE 20 MG TABLET 40 MG PO (10:21)
[2021-11-04] MEDS: ASCORBIC ACID 500 MG TABLET PO ×2 (10:21→17:10)
[2021-11-04] MEDS: hydrALAZINE HCL 50 MG TABLET PO ×2 (10:22→21:15)
[2021-11-04] MEDS: ESCITALOPRAM OXALATE 10 MG TABLET PO (10:22)
[2021-11-04] MEDS: GABAPENTIN 300 MG CAPSULE PO ×3 (10:22→17:09)
[2021-11-04] MEDS: ASPIRIN 81 MG ENTERIC TABLET PO (10:22)
[2021-11-04] MEDS: BENZONATATE 100 MG CAPSULE PO ×3 (10:22→17:10)
[2021-11-04] MEDS: FERROUS SULFATE 324 MG TABLET PO ×2 (10:22→17:10)
[2021-11-04] MEDS: MULTIVITAMINS /C LUTEIN (CENTRUM SILVER) TABLET *BKC 1 TAB PO (10:22)
[2021-11-04] MEDS: CHOLECALCIFEROL 1,000 UNITS TABLET 2000 UNITS PO (10:22)
[2021-11-04] MEDS: TOLNAFTATE 1% POWDER 45 GM BTL 1 APPLIC TOPICAL ×2 (10:23→21:15)
[2021-11-04] MEDS: SILVERGEL (ELTA) 45 ML 1 APPLIC TOPICAL (10:23)
[2021-11-04 12:16] LABS: Glucose Point of Care 185 mg/dl (65-105)
--- NOTE | 2021-11-04 13:19 | PM.IMPN ---
Progress Note: A&P Assessment and Plan (1) Acute on chronic respiratory failure with hypoxia and hypercapnia: Code(s): J96.21 - Acute and chronic respiratory failure with hypoxia; J96.22 - Acute and chronic respiratory failure with hypercapnia Status: Acute Assessment and Plan: Patient brought to emergency room because of hypoxia. She is Tobacco dependent w/ COPD. BNP 2670 w/ CXR with pulmonary vacular congestion suggesting decompensated heart failure. Lung exam c/w COPD exacerbation. COVID19 negative. Was on IV Lasix and Solu-Medrol but both have been stopped. Continues to require 5LNC and stil wheezing. CT chest showed CMG with pleural effusions and airspace opacities. Continue Duonebs q4h. Add Lasix IV. Consider adding back Slou-Medrol. Wean o2 to baseline 2.5L as tolerated (2) CHF (congestive heart failure): Code(s): I50.9 - Heart failure, unspecified Status: Acute Assessment and Plan: Decompensated. BNP elevated and CXR with pulmonary vascular congestion with patient having increasing oxygen requirements. Echo 08/03/21 EF 60-65% with diastolic dysfunction. Takes furosemide 40 mg po daily at home. Pedal edema noted. Will resume IV Lasix. Check dopplers. Monitor renal function closely. (3) COPD with acute exacerbation: Code(s): J44.1 - Chronic obstructive pulmonary disease with (acute) exacerbation Status: Acute Assessment and Plan: Patient continues to have wheezing and patient continues to have increased O2 requirement. Baseline O2 requirement is 2.5LNC. Continue Prenisone and nebs but consider changing to Solu-Medrol. Continue nebs. Wean o2 as toelrated (4) Chronic kidney disease, stage 3: Qualifiers: Chronic kidney disease stage 3 subtype: stage 3b (GFR 30-44) Qualified Code(s): N18.32 - Chronic kidney disease, stage 3b Code(s): N18.30 - Chronic kidney disease, stage 3 unspecified Status: Acute Assessment and Plan: Since about 02/2020 baseline creatinine has been 1.7-1.8. CHRIS with Cr to 2.1 but now back to baseline. Follow closely on IV Lasix (5) Diabetes mellitus with hyperglycemia: Code(s): E11.65 - Type 2 diabetes mellitus with hyperglycemia Status: Acute Assessment and Plan: A1c 9.0 in September. Hyperglycemia likely due to steroids. Seems to have been 200s-400s for the past few hospitalizations. Takes glargine 40 units Q12H with lispro 6 units with meals. Continue High dose sliding scale. Continue Glargine at 42 units Q12H and Aspart to 8 units TIDWM. (6) Tobacco dependence: Code(s): F17.200 - Nicotine dependence, unspecified, uncomplicated Status: Chronic Assessment and Plan: Educated about the benefits of smoking cessation (7) Nasal congestion: Code(s): R09.81 - Nasal congestion Status: Acute Assessment and Plan: Improved. Continue: -Phenylephrine BID x 72 hours from 11/02 -Fluticasone BID Plan DVT Prophylaxis: Lovenox Code status: Full Subjective Date/time seen: 11/04/21 13:19 Interval history: 51yo female with hx of bipolar disorder, intellectual disability, COPD, hypertension, diabetes mellitus, and morbid obesity who presented to the ER via EMS from [facility] for hypoxia. Assuming care. Chart reviewed. Patient denies any chest pain. No abdominal pain. ?I feel good? today. She refused her BiPAP. Nursing states the patient has been noncompliant with treatment at times. She has a chronic Chen. Exam Narrative: AF 96.9 150/94 76 18 94% 5L Gen - NARD lying semi-recumbent in bed Chest - diffuse expiratory wheezes, nml RR CV - RRR S1/S2. Abd - Soft, obese, NT. Colostomy LLQ with brown stool in bag - Chen secured draining clear yellow urine Ext - 1+ pitting pedal edema Neuro - Intellectual disability at baseline Psych - Nml mood but odd affect Skin - Warm and dry Objective Data Vital Signs Vital Signs:
[2021-11-04 17:04] LABS: Glucose Point of Care 226 mg/dl (65-105)
[2021-11-04] MEDS: INSULIN ASPART (*BKC) 100 UNITS/ML SUB-Q (17:08)
[2021-11-04] MEDS: FUROSEMIDE INJ 40 MG/4 ML VIAL IV PUSH (17:09)
[2021-11-04] MEDS: QUEtiapine FUMARATE XR 50 MG TAB.ER.24H 150 MG PO (21:14)
[2021-11-04] MEDS: hydrOXYzine HCL 25 MG TABLET PO (21:15)
[2021-11-04] MEDS: ATORVASTATIN 40 MG TABLET PO (21:15)
[2021-11-04] MEDS: OLANZapine 5 MG TABLET PO (21:15)
--- NOTE | 2021-11-04 21:32 | PCRCNOTE ---
Pt refusing 2000 UPD treatment on 11/04. Pt stated she wanted a snack instead of her breathing treatment. When RT stated she could not give her a snack but had a treatment for her instead, the pt stated 'don't worry about it, I am breathing fine.' Pt in no distress and advised to tell RN if she was in need of a treatment.
[2021-11-04 22:12] LABS: Glucose Point of Care 243 mg/dl (65-105)
[2021-11-05] VITALS (16 sets, daily range): BP systolic 170–172; BP diastolic 85–94; PULSE 61–85; RESP 12–18; TEMP 36.1–36.8; O2SAT 91–95
[2021-11-05] MEDS: IPRATROPIUM BR 0.02% INH SOLN 0.5 MG/2.5 ML VIAL INHALATION ×4 (04:14→20:24)
[2021-11-05] MEDS: ALBUTEROL SULFATE NEB 2.5 MG/0.5 ML INH 5 MG INHALATION ×4 (04:14→20:23)
[2021-11-05 07:47] LABS: Glucose Point of Care 155 mg/dl (65-105)
[2021-11-05] MEDS: INSULIN ASPART (*BKC) 100 UNITS/ML 8 UNITS SUB-Q ×3 (08:10→17:09)
[2021-11-05] MEDS: INSULIN GLARGINE (*BKC) 100 UNITS/ML 42 UNITS SUB-Q ×2 (08:10→21:57)
[2021-11-05] MEDS: FLUTICASONE PROPIONATE 0.05% NA SPR 16 GM BTL (*BKC) 1 SPRAY NASAL ×2 (08:16→21:58)
[2021-11-05] MEDS: ENOXAPARIN 40 MG/0.4 ML SYRINGE SUB-Q ×2 (08:17→21:58)
[2021-11-05] MEDS: SILVERGEL (ELTA) 45 ML 1 APPLIC TOPICAL (08:17)
[2021-11-05] MEDS: hydrALAZINE HCL 50 MG TABLET PO ×2 (08:21→22:00)
[2021-11-05] MEDS: BENZONATATE 100 MG CAPSULE PO (08:21)
[2021-11-05] MEDS: CHOLECALCIFEROL 1,000 UNITS TABLET 2000 UNITS PO (08:21)
[2021-11-05] MEDS: ASCORBIC ACID 500 MG TABLET PO ×2 (08:21→17:11)
[2021-11-05] MEDS: MULTIVITAMINS /C LUTEIN (CENTRUM SILVER) TABLET *BKC 1 TAB PO (08:22)
[2021-11-05] MEDS: FERROUS SULFATE 324 MG TABLET PO ×2 (08:22→17:11)
[2021-11-05] MEDS: ESCITALOPRAM OXALATE 10 MG TABLET PO (08:22)
[2021-11-05] MEDS: predniSONE 20 MG TABLET 40 MG PO (08:22)
[2021-11-05] MEDS: amLODIPine BESYLATE 5 MG TABLET 10 MG PO (08:22)
[2021-11-05] MEDS: carvediloL 25 MG TABLET PO ×2 (08:22→21:58)
[2021-11-05] MEDS: GABAPENTIN 300 MG CAPSULE PO ×3 (08:23→17:12)
[2021-11-05] MEDS: TOLNAFTATE 1% POWDER 45 GM BTL 1 APPLIC TOPICAL ×2 (08:23→22:00)
[2021-11-05] MEDS: ASPIRIN 81 MG ENTERIC TABLET PO (08:23)
[2021-11-05] MEDS: FUROSEMIDE INJ 40 MG/4 ML VIAL IV PUSH ×2 (08:23→17:11)
[2021-11-05] MEDS: PHENYLEPHRINE 1% NA SPR (*BKC) 15 ML BTL 1 SPRAY NASAL (08:24)
[2021-11-05 09:54] LABS: Hematocrit 41.2 % (37.0-47.0); Hemoglobin 11.9 g/dL (12.0-15.0); Mean Corpuscular HGB Conc 28.9 g/dl (32-36); Mean Corpuscular Hemoglobin 24.5 pg (26-34); Mean Corpuscular Volume 84.8 fl (80-100); Mean Platelet Volume 10.4 fl (7.4-10.4); Platelet Count Result 231 k/mm3 (150-375); Red Blood Count 4.86 M/mm3 (4.2-5.4); Red Cell Distribution Width 23.2 % (11.5-14.5); White Blood Count 9.1 K/mm3 (4.5-10.0)
[2021-11-05 10:14] LABS: Anion Gap 6 mmol/L (8-16); Blood Urea Nitrogen 75 mg/dL (7-17); Calcium 8.4 mg/dL (8.4-10.2); Carbon Dioxide 32 mmol/L (22-30); Chloride 96 mmol/L (98-107); Estimated CRCL calculation 51 ml/min; Estimated Glomerular Filt Rate 31; Glucose 155 mg/dL (65-110); Potassium 4.1 mmol/L (3.4-5.0); Sodium 134 mmol/L (137-145)
[2021-11-05 10:52] LABS: Thyroid Stimulating Hormone Reflex 0.497 uIU/mL (0.465-4.68)
[2021-11-05 11:40] LABS: Glucose Point of Care 187 mg/dl (65-105)
--- NOTE | 2021-11-05 12:36 | PCNFU ---
Nutrition Follow-Up Complete: Increased protein needs releated to two stage III pressure ulcers on both heals as evidenced by protein needs of 98-110grams/day/pro based on IBW of 61.2kg at 1.6-1.8 gm/kg. Goal: Maintain oral intake of 75% or more with Casimiro BID (90kcal, 2.5gm pro each) to aid in wound recovery. - Pt is meeting goal, continue current goal. Pt current nutrition is DBCC. Last recorded weight is 140.4 kg, a gain of 4.6kg from initial visit 10/31. Bowel Motility: +BM (11/03) Labs Reviewed: Hgb 11.9, Na 134, GFR 31, BUN 75, Cr 1.7, Glu 155 Meds Noted: Vit D, Multivitamin, Vit C, Lantus, Novolog, Ferrous Sulfate Skin: Stage III Pressure Ulcer on both heels Additional Notes: Pt is eating 100% of meals with Casimiro BID (90kcal, 2.5gm pro each). Pt has a good appetite. Monitor oral intake, changes in weight, and labs every 7 days.
--- NOTE | 2021-11-05 13:29 | PCNSR ---
On 11/05/21, the student, Carmen Ha, provided care and completed [facility] documentation on this patient. I have reviewed the student's documentation and agree with the findings.
--- NOTE | 2021-11-05 15:40 | PM.IMPN ---
Progress Note: A&P Assessment and Plan (1) Acute on chronic respiratory failure with hypoxia and hypercapnia: Code(s): J96.21 - Acute and chronic respiratory failure with hypoxia; J96.22 - Acute and chronic respiratory failure with hypercapnia Status: Acute Assessment and Plan: Patient brought to emergency room because of hypoxia. She is Tobacco dependent w/ COPD. BNP 2670 w/ CXR showing pulmonary vacular congestion suggesting decompensated heart failure. Lung exam was concerning for COPD exacerbation. COVID19 negative. Was on IV Lasix and Solu-Medrol but both were stopped. Continues to require 5LNC but poorly compliant with oxygen therapy. 88% on room air. CT chest showed cardiomegaly with pleural effusions and airspace opacities. Continue Duonebs q4h. Continue Lasix 40 mg IV b.i.d. Consider adding back Solu-Medrol, however lung exam seems improved today, therefore will defer at this time. Wean o2 to baseline 2.5L as tolerated (2) CHF (congestive heart failure): Code(s): I50.9 - Heart failure, unspecified Status: Acute Assessment and Plan: Decompensated. BNP elevated and CXR with pulmonary vascular congestion with patient having increasing oxygen requirements. Echo 08/03/21 EF 60-65% with diastolic dysfunction. Takes furosemide 40 mg po daily at home. Pedal edema noted. Continue IV Lasix. Patient refused venous dopplers mid exam. No DVT of right popliteal and proximal right thigh veins, nothing else able to be evaluated as study was terminated. Renal function remains stable on IV diuretics. (3) COPD with acute exacerbation: Code(s): J44.1 - Chronic obstructive pulmonary disease with (acute) exacerbation Status: Acute Assessment and Plan: Patient continues to have increased O2 requirement. Baseline O2 requirement is 2.5LNC. Continue Prednisone and nebs. Consider restarting Solu-Medrol if no improvement. Wean o2 as toelrated. Patient poorly compliant with O2 use. (4) Chronic kidney disease, stage 3: Qualifiers: Chronic kidney disease stage 3 subtype: stage 3b (GFR 30-44) Qualified Code(s): N18.32 - Chronic kidney disease, stage 3b Code(s): N18.30 - Chronic kidney disease, stage 3 unspecified Status: Acute Assessment and Plan: Since about 02/2020 baseline creatinine has been 1.7-1.8. CHRIS with Cr to 2.1 but now back to baseline. Follow closely on IV Lasix (5) Diabetes mellitus with hyperglycemia: Code(s): E11.65 - Type 2 diabetes mellitus with hyperglycemia Status: Acute Assessment and Plan: A1c 9.0 in September. Hyperglycemia likely due to steroids. Seems to have been 200s-400s for the past few hospitalizations. Takes glargine 40 units Q12H with lispro 6 units with meals. Continue High dose sliding scale. Continue Glargine at 42 units Q12H and Aspart to 8 units TIDWM. Blood sugars better controlled today 150-180s. (6) Tobacco dependence: Code(s): F17.200 - Nicotine dependence, unspecified, uncomplicated Status: Chronic Assessment and Plan: Smokes 0.5 packs per day. Educated about the benefits of smoking cessation (7) Nasal congestion: Code(s): R09.81 - Nasal congestion Status: Acute Assessment and Plan: Nearly resolved. Completed 3 days of phenylephrine, discontinued today. Continue fluticasone BID. Plan DVT Prophylaxis: Lovenox Code status: Full Subjective Date/time seen: 11/05/21 15:40 Interval history: Date of service: 11/05/2021 Josy Perez is a 51-year-old female with a history of CKD, diastolic dysfunction, hypertension, type 2 diabetes mellitus, iron deficiency anemia, tobacco dependence, CONNOR who is seen in follow-up for CHF and COPD. When I entered the room she had her nasal cannula resting on her forehead. I asked her why she was not wearing the oxygen and she stated she does not needed. She states she can tell when she needs it because she
[2021-11-05 16:31] LABS: Glucose Point of Care 253 mg/dl (65-105)
[2021-11-05] MEDS: INSULIN ASPART (*BKC) 100 UNITS/ML SUB-Q (17:08)
[2021-11-05] MEDS: ATORVASTATIN 40 MG TABLET PO (21:59)
[2021-11-05] MEDS: QUEtiapine FUMARATE XR 50 MG TAB.ER.24H 150 MG PO (21:59)
[2021-11-05] MEDS: OLANZapine 5 MG TABLET PO (21:59)
[2021-11-05] MEDS: hydrOXYzine HCL 25 MG TABLET PO (22:00)
[2021-11-05 22:07] LABS: Glucose Point of Care 289 mg/dl (65-105)
[2021-11-05] MEDS: hydrALAZINE HCL 20 MG/ML VIAL 10 MG IV PUSH (23:27)
[2021-11-06] VITALS (18 sets, daily range): BP systolic 152–180; BP diastolic 67–88; PULSE 70–79; RESP 16–20; TEMP 36.3–36.4; O2SAT 87–95
[2021-11-06] MEDS: ALBUTEROL SULFATE NEB 2.5 MG/0.5 ML INH 5 MG INHALATION ×5 (00:26→20:18)
[2021-11-06] MEDS: IPRATROPIUM BR 0.02% INH SOLN 0.5 MG/2.5 ML VIAL INHALATION ×5 (00:26→20:18)
[2021-11-06 06:34] LABS: Anion Gap 4 mmol/L (8-16); Blood Urea Nitrogen 78 mg/dL (7-17); Calcium 7.8 mg/dL (8.4-10.2); Carbon Dioxide 33 mmol/L (22-30); Chloride 95 mmol/L (98-107); Estimated CRCL calculation 53 ml/min; Estimated Glomerular Filt Rate 34; Glucose 223 mg/dL (65-110); Sodium 132 mmol/L (137-145)
[2021-11-06 08:06] LABS: Glucose Point of Care 218 mg/dl (65-105)
[2021-11-06] MEDS: ENOXAPARIN 40 MG/0.4 ML SYRINGE SUB-Q ×2 (08:21→20:21)
[2021-11-06] MEDS: FUROSEMIDE INJ 40 MG/4 ML VIAL IV PUSH ×2 (08:21→16:01)
[2021-11-06] MEDS: MULTIVITAMINS /C LUTEIN (CENTRUM SILVER) TABLET *BKC 1 TAB PO (08:21)
[2021-11-06] MEDS: carvediloL 25 MG TABLET PO ×2 (08:21→21:55)
[2021-11-06] MEDS: GABAPENTIN 300 MG CAPSULE PO ×3 (08:21→16:00)
[2021-11-06] MEDS: CHOLECALCIFEROL 1,000 UNITS TABLET 2000 UNITS PO (08:21)
[2021-11-06] MEDS: predniSONE 20 MG TABLET 40 MG PO (08:22)
[2021-11-06] MEDS: ASPIRIN 81 MG ENTERIC TABLET PO (08:22)
[2021-11-06] MEDS: ASCORBIC ACID 500 MG TABLET PO ×2 (08:22→16:00)
[2021-11-06] MEDS: FLUTICASONE PROPIONATE 0.05% NA SPR 16 GM BTL (*BKC) 1 SPRAY NASAL ×2 (08:22→20:21)
[2021-11-06] MEDS: amLODIPine BESYLATE 5 MG TABLET 10 MG PO (08:22)
[2021-11-06] MEDS: ESCITALOPRAM OXALATE 10 MG TABLET PO (08:22)
[2021-11-06] MEDS: BENZONATATE 100 MG CAPSULE PO ×3 (08:22→16:00)
[2021-11-06] MEDS: FERROUS SULFATE 324 MG TABLET PO ×2 (08:22→16:00)
[2021-11-06] MEDS: INSULIN ASPART (*BKC) 100 UNITS/ML 8 UNITS SUB-Q ×3 (08:24→16:48)
[2021-11-06] MEDS: INSULIN ASPART (*BKC) 100 UNITS/ML SUB-Q ×3 (08:24→16:47)
[2021-11-06] MEDS: hydrALAZINE HCL 50 MG TABLET PO ×3 (08:24→21:55)
[2021-11-06] MEDS: TOLNAFTATE 1% POWDER 45 GM BTL 1 APPLIC TOPICAL ×2 (08:27→20:22)
[2021-11-06] MEDS: INSULIN GLARGINE (*BKC) 100 UNITS/ML 42 UNITS SUB-Q ×2 (08:27→21:54)
[2021-11-06] MEDS: SILVERGEL (ELTA) 45 ML 1 APPLIC TOPICAL (08:38)
--- NOTE | 2021-11-06 09:59 | PCOTNOTE ---
Attempted to see pt. upon return from x-ray. Pt. declined to participate in therapy at this time, stating that she will start tomorrow . Will follow.
[2021-11-06 12:10] LABS: Glucose Point of Care 222 mg/dl (65-105)
[2021-11-06] MEDS: hydrALAZINE HCL 20 MG/ML VIAL 10 MG IV PUSH (13:37)
[2021-11-06 16:46] LABS: Glucose Point of Care 248 mg/dl (65-105)
--- NOTE | 2021-11-06 17:06 | PM.IMPN ---
Progress Note: A&P Assessment and Plan (1) Acute on chronic respiratory failure with hypoxia and hypercapnia: Code(s): J96.21 - Acute and chronic respiratory failure with hypoxia; J96.22 - Acute and chronic respiratory failure with hypercapnia Status: Acute Assessment and Plan: Patient brought to emergency room because of hypoxia. She is tobacco dependent w/ COPD. BNP 2670 w/ CXR showing pulmonary vacular congestion suggesting decompensated heart failure. COVID swab negative. Was on IV Lasix and Solu-Medrol but both were stopped. Continues to require 5LNC but poorly compliant with oxygen therapy. CT chest showed cardiomegaly with pleural effusions and airspace opacities. Lasix IV resumed and lung exam improved today and edema better but still requiring 5L O2. Doppler showing no obvious DVT but incomplete study. CXR today showing improvement in prior pulmonary congestion but persistetn small bilateral effusions with associated atelectasis. Doubt PNA since no fevers or elevated WBC. Continue Duonebs q4h. Continue Lasix 40 mg IV b.i.d. Do not believe steroids would be of benefit. Wean o2 to baseline 2.5L as tolerated but this may be her new baseline. Check VQ scan if patient agreeable. (2) CHF (congestive heart failure): Code(s): I50.9 - Heart failure, unspecified Status: Acute Assessment and Plan: Decompensated. BNP elevated and CXR with pulmonary vascular congestion with patient having increasing oxygen requirements. Echo 08/03/21 EF 60-65% with diastolic dysfunction. Takes furosemide 40 mg po daily at home. Pedal edema noted and improved. Patient refused venous dopplers mid exam. No DVT of right popliteal and proximal right thigh veins, nothing else able to be evaluated as study was terminated. Renal function remains stable on IV diuretics. Continue IV Lasix. (3) COPD with acute exacerbation: Code(s): J44.1 - Chronic obstructive pulmonary disease with (acute) exacerbation Status: Acute Assessment and Plan: Patient with increased O2 requirement. Baseline O2 requirement is 2.5LNC. Continue Prednisone and nebs. Wean o2 as tolerated. Patient poorly compliant with O2 use. Stop Prednisone tomorrow (4) Chronic kidney disease, stage 3: Qualifiers: Chronic kidney disease stage 3 subtype: stage 3b (GFR 30-44) Qualified Code(s): N18.32 - Chronic kidney disease, stage 3b Code(s): N18.30 - Chronic kidney disease, stage 3 unspecified Status: Acute Assessment and Plan: Since about 02/2020 baseline creatinine has been 1.7-1.8. CHRIS with Cr to 2.1 but now back to baseline. Follow closely on IV Lasix (5) Diabetes mellitus with hyperglycemia: Code(s): E11.65 - Type 2 diabetes mellitus with hyperglycemia Status: Acute Assessment and Plan: A1c 9.0 in September. Hyperglycemia likely due to steroids. Seems to have been 200s-400s for the past few hospitalizations. Takes glargine 40 units Q12H with lispro 6 units with meals. Continue High dose sliding scale. Continue Glargine at 42 units Q12H and Aspart to 8 units TIDWM. Blood sugars should improve once off the Prednisone (6) Tobacco dependence: Code(s): F17.200 - Nicotine dependence, unspecified, uncomplicated Status: Chronic Assessment and Plan: Smokes 0.5 packs per day. Educated about the benefits of smoking cessation but seems uninterested (7) Nasal congestion: Code(s): R09.81 - Nasal congestion Status: Acute Assessment and Plan: Nearly resolved. Completed 3 days of phenylephrine. Continue fluticasone BID. (8) Hypertension: Code(s): I10 - Essential (primary) hypertension Status: Acute Assessment and Plan: Blood pressure noted. Blood pressure remains high. Possibly related to prednisone. Will advance hydralazine. Continue to follow. Plan DVT Prophylaxis: Lovenox Code status: Full Subjective Date/time seen:
--- NOTE | 2021-11-06 17:26 | PCRCNOTE ---
Window of time for administration has passed. See next scheduled administration.
[2021-11-06] MEDS: hydrOXYzine HCL 25 MG TABLET PO (20:20)
[2021-11-06] MEDS: QUEtiapine FUMARATE XR 50 MG TAB.ER.24H 150 MG PO (20:20)
[2021-11-06] MEDS: OLANZapine 5 MG TABLET PO (20:20)
[2021-11-06] MEDS: ATORVASTATIN 40 MG TABLET PO (20:21)
[2021-11-06 20:50] LABS: Glucose Point of Care 329 mg/dl (65-105)
--- NOTE | 2021-11-06 22:01 | PC.NURSE ---
11/06/21 2200 pt o2 sats 87-88% room air. placed on 1L/nc.
[2021-11-07] VITALS (11 sets, daily range): BP systolic 143–166; BP diastolic 73–83; PULSE 69–82; RESP 18–20; TEMP 36.7–37.1; O2SAT 90–93
[2021-11-07] MEDS: ALBUTEROL SULFATE NEB 2.5 MG/0.5 ML INH 5 MG INHALATION ×3 (00:20→13:12)
[2021-11-07] MEDS: IPRATROPIUM BR 0.02% INH SOLN 0.5 MG/2.5 ML VIAL INHALATION ×3 (00:20→13:12)
[2021-11-07] MEDS: hydrALAZINE HCL 50 MG TABLET PO (05:07)
--- NOTE | 2021-11-07 08:02 | PCOTNOTE ---
Attempted OT evaluation this AM. Patient with nursing getting colostomy bag changed. Will continue to attempt.
[2021-11-07 08:07] LABS: Glucose Point of Care 281 mg/dl (65-105)
[2021-11-07] MEDS: INSULIN ASPART (*BKC) 100 UNITS/ML SUB-Q ×3 (08:50→16:43)
[2021-11-07] MEDS: INSULIN ASPART (*BKC) 100 UNITS/ML 8 UNITS SUB-Q ×3 (08:50→16:43)
[2021-11-07] MEDS: FERROUS SULFATE 324 MG TABLET PO ×2 (08:51→16:12)
[2021-11-07] MEDS: ENOXAPARIN 40 MG/0.4 ML SYRINGE SUB-Q (08:51)
[2021-11-07] MEDS: carvediloL 25 MG TABLET PO (08:51)
[2021-11-07] MEDS: predniSONE 20 MG TABLET 40 MG PO (08:51)
[2021-11-07] MEDS: amLODIPine BESYLATE 5 MG TABLET 10 MG PO (08:51)
[2021-11-07] MEDS: FUROSEMIDE INJ 40 MG/4 ML VIAL IV PUSH ×2 (08:51→16:12)
[2021-11-07] MEDS: FLUTICASONE PROPIONATE 0.05% NA SPR 16 GM BTL (*BKC) 1 SPRAY NASAL (08:51)
[2021-11-07] MEDS: ASCORBIC ACID 500 MG TABLET PO ×2 (08:51→16:12)
[2021-11-07] MEDS: ESCITALOPRAM OXALATE 10 MG TABLET PO (08:51)
[2021-11-07] MEDS: BENZONATATE 100 MG CAPSULE PO ×3 (08:51→16:12)
[2021-11-07] MEDS: CHOLECALCIFEROL 1,000 UNITS TABLET 2000 UNITS PO (08:51)
[2021-11-07] MEDS: INSULIN GLARGINE (*BKC) 100 UNITS/ML 42 UNITS SUB-Q (08:52)
[2021-11-07] MEDS: GABAPENTIN 300 MG CAPSULE PO ×3 (08:52→16:12)
[2021-11-07] MEDS: SILVERGEL (ELTA) 45 ML 1 APPLIC TOPICAL (08:52)
[2021-11-07] MEDS: TOLNAFTATE 1% POWDER 45 GM BTL 1 APPLIC TOPICAL (08:52)
[2021-11-07] MEDS: MULTIVITAMINS /C LUTEIN (CENTRUM SILVER) TABLET *BKC 1 TAB PO (08:52)
[2021-11-07] MEDS: ASPIRIN 81 MG ENTERIC TABLET PO (08:52)
--- NOTE | 2021-11-07 09:27 | PCRCNOTE ---
Pt refused 08 [facility] tx
--- NOTE | 2021-11-07 10:01 | PC.NURSE ---
pt refused am labs
[2021-11-07 11:51] LABS: Glucose Point of Care 292 mg/dl (65-105)
[2021-11-07] MEDS: hydrALAZINE HCL 25 MG TABLET 75 MG PO (13:08)
[2021-11-07] MEDS: ACETAMINOPHEN 325 MG TABLET 650 MG PO (13:21)
--- NOTE | 2021-11-07 13:29 | PC.NURSE ---
pt refusing to go to [facility] for testing
--- NOTE | 2021-11-07 13:50 | PCOTNOTE ---
Attempted OT evaluation a second time today. Patient in room yelling inappropriately and refusing testing at this time. Not appropriate for therapy at this time.
--- NOTE | 2021-11-07 14:00 | PCCCNOTE ---
On 11/07/21, the student, [Ary Mahoney], provided care and completed [facility] documentation on this patient. I have reviewed the student's documentation and agree with the findings.
--- NOTE | 2021-11-07 14:21 | PC.NURSE ---
Report given to Jonna at [facility]. Russ to be removed, pt doesn't have russ at facility, pt possible discharging per MD Burgos today.
--- NOTE | 2021-11-07 14:30 | PC.NURSE ---
pt bladder scanned 20 ml in bladder, MD Aubrey ramirez'd removing russ.
[2021-11-07] MEDS: HYDROcodone/acetaminophen (*CRX) 5-325 MG TABLET 1 TAB PO (14:33)
--- NOTE | 2021-11-07 15:03 | PC.NURSE ---
at resting comfortable after receiving pain pill and removing russ
--- NOTE | 2021-11-07 15:07 | PC.NURSE ---
covid test sent to lab for analysis.
[2021-11-07 15:26] LABS: EDCOVIDSCREEN Negative (Negative)
--- NOTE | 2021-11-07 15:59 | PC.NURSE ---
This patient, Josy Perez, was transferred from ICU-8 to 3 Med Surg Room 317-01 at 1335. Patient/family oriented to hospital policies and general routines including ID bracelet, bed and alarms, visiting hours, pain management, procedures, bathroom and other care routines, personal items, smoking policy, room service/diet, and visiting hours. Information on how to activate the Rapid Response Team has been discussed. Patient/Family are encouraged to report perceived risks to care and to ask questions if they do not understand what they are told or what they should do. Report received from Brittany RAMOS
--- NOTE | 2021-11-07 15:59 | PM.DS ---
DS: Admitting Diagnosis Discharge Date 11/07/21 Admitting Diagnosis Hypoxia DS: Discharge Diagnosis Discharge Diagnosis (1) Acute on chronic respiratory failure with hypoxia and hypercapnia: Code(s): J96.21 - Acute and chronic respiratory failure with hypoxia; J96.22 - Acute and chronic respiratory failure with hypercapnia Status: Acute Assessment and Plan: Patient brought to emergency room because of hypoxia. She is tobacco dependent w/ COPD. BNP 2670 w/ CXR showing pulmonary vacular congestion suggesting decompensated heart failure. COVID swab negative. Was on IV Lasix and Solu-Medrol but both were stopped. She continued to require 5LNC but poorly compliant with oxygen therapy. CT chest showed cardiomegaly with pleural effusions and airspace opacities. Doppler showing no obvious DVT but incomplete study. Lasix IV resumed with good UOP. Her exam improved. CXR showing improvement in prior pulmonary congestion but persistent small bilateral effusions with associated atelectasis. Doubt PNA since no fevers or elevated WBC. Patient continued to refuse multiple studies and lab testing making care of the patient difficult. She was able to come off oxygen. [place] that her hypoxia was related to acute on chronic diastolic CHF. (2) CHF (congestive heart failure): Code(s): I50.9 - Heart failure, unspecified Status: Acute Assessment and Plan: Decompensated acute on chronic diastolic CHF. BNP elevated and CXR with pulmonary vascular congestion with patient having increasing oxygen requirements. Echo 08/03/21 EF 60-65% with diastolic dysfunction. Lasix not on home med list. Pedal edema noted. Patient refused venous dopplers mid exam. No DVT of right popliteal and proximal right thigh veins, nothing else able to be evaluated as study was terminated. Renal function remains stable on IV diuretics. Good UOP with diuresis. Will continue Lasix at discharge but just once daily since unable to get follow up labs. (3) COPD with acute exacerbation: Code(s): J44.1 - Chronic obstructive pulmonary disease with (acute) exacerbation Status: Acute Assessment and Plan: Patient with increased O2 requirement. Baseline O2 requirement is 2.5LNC but able to come off O2 here. She completed a course of steroids. To [facility] with order for O2 prn (4) Chronic kidney disease, stage 3: Qualifiers: Chronic kidney disease stage 3 subtype: stage 3b (GFR 30-44) Qualified Code(s): N18.32 - Chronic kidney disease, stage 3b Code(s): N18.30 - Chronic kidney disease, stage 3 unspecified Status: Acute Assessment and Plan: Since about 02/2020 baseline creatinine has been 1.7-1.8. CHRIS with Cr to 2.1 but now back to baseline. Follow after discharge (5) Diabetes mellitus with hyperglycemia: Code(s): E11.65 - Type 2 diabetes mellitus with hyperglycemia Status: Acute Assessment and Plan: A1c 9.0 in September. Hyperglycemia likely due to steroids. Seems to have been 200s-400s for the past few hospitalizations. Takes glargine 40 units Q12H with lispro 6 units with meals and this was advanced. Steroids to stop today so should improve. (6) Tobacco dependence: Code(s): F17.200 - Nicotine dependence, unspecified, uncomplicated Status: Chronic Assessment and Plan: Smokes 0.5 packs per day. She was educated about the benefits of smoking cessation but she seems uninterested (7) Nasal congestion: Code(s): R09.81 - Nasal congestion Status: Acute Assessment and Plan: Resolved. Completed 3 days of phenylephrine. Continue fluticasone nasal spray (8) Hypertension: Code(s): I10 - Essential (primary) hypertension Status: Acute Assessment and Plan: Blood pressure noted and was elevated at times. Possibly related to prednisone. We advanced hydralazine with improvement DS: Summary Hospital Course Reason for hos
[2021-11-07 16:52] LABS: Glucose Point of Care 239 mg/dl (65-105)
--- NOTE | 2021-11-07 17:16 | PC.NURSE ---
discharge paperwork faxed to [facility].
--- NOTE | 2021-11-07 17:56 | PC.NURSE ---
iv removed, awaiting ambulance back to [place].
[2021-11-07 18:12] LABS: Anion Gap 6 mmol/L (8-16); Blood Urea Nitrogen 88 mg/dL (7-17); Calcium 8.1 mg/dL (8.4-10.2); Carbon Dioxide 35 mmol/L (22-30); Chloride 95 mmol/L (98-107); Estimated CRCL calculation 47 ml/min; Estimated Glomerular Filt Rate 29; Glucose 247 mg/dL (65-110); Potassium 4.2 mmol/L (3.4-5.0); Sodium 136 mmol/L (137-145)
== END 2021-11-07 19:12 | DRG 133 ==
LOC: ANHED 19:52 → ANHIMU 20:39 → ANH3MEDSUR 11-01 00:02 → ANHIMU 11-08 11:11
PROVIDERS: Family Medicine; Internal Medicine; Internal Medicine Interventional Cardiology; Admitting Provider Student in an Organized Health Care Education/Training Program; Emergency Provider Emergency Medicine; PCP Internal Medicine; Visit Provider Physician Assistant
DX: J96.21 Acute and chronic respiratory failure with hypoxia (principal); J44.1 Chronic obstructive pulmonary disease with (acute) exacerbation; I50.33 Acute on chronic diastolic (congestive) heart failure; F17.200 Nicotine dependence, unspecified, uncomplicated; I13.0 Hypertensive heart and chronic kidney disease with heart failure and stage 1 through stage 4 chronic kidney disease, or unspecified chronic kidney disease; E11.65 Type 2 diabetes mellitus with hyperglycemia; E11.22 Type 2 diabetes mellitus with diabetic chronic kidney disease; J96.22 Acute and chronic respiratory failure with hypercapnia; E66.01 Morbid (severe) obesity due to excess calories; F32.9 Major depressive disorder, single episode, unspecified; Z68.43 Body mass index [BMI] 50.0-59.9, adult; Z99.81 Dependence on supplemental oxygen; Z82.49 Family history of ischemic heart disease and other diseases of the circulatory system; Z83.3 Family history of diabetes mellitus; N18.32 Chronic kidney disease, stage 3b; Z79.899 Other long term (current) drug therapy; Z79.4 Long term (current) use of insulin
CPT/HCPCS: 36415; 36600; 71045; 71046; 71250; 80048; 80053; 82375; 82805; 82948; 83050; 83605; 83735; 83880; 84100; 84145; 84443; 84484; 85025; 85027; 85610; 85730; 87040; 87426; 93005; 93970; 94002; 94640; 96372; 96374; 96375; 96376; 97162; 99285; A9270; C9803; G0378; G0379; J0360; J1650; J1815; J1940; J2930; J7120; J7512; U0003; U0005

== ENCOUNTER 2021-12-03 00:44 | Inpatient (IN) | payer OTHER, SELFPAY ==
[2021-12-03] VITALS (36 sets, daily range): BP systolic 110–188; BP diastolic 41–104; PULSE 72–112; RESP 9–25; TEMP 36.2–36.8; O2SAT 87–97; BMI 44.6; BMI 44.5
--- NOTE | ~2021-12-03 | XR_ITS ---
EXAMINATION: XR chest 1V portable DATE: 12/06/2021 05:27 INDICATION: Shortness of breath TECHNIQUE: frontal view of the chest was obtained. COMPARISON: Chest radiograph dated 12/03/2021 FINDINGS: Significant decrease in the prior perihilar predominant airspace opacities consistent with resolving now mild pulmonary edema. Linear bands of discoid atelectasis/scarring in the bilateral mid and left lower lung zones. No pleural effusion or pneumothorax. Cardiomegaly IMPRESSION: 1. Likely resolving congestive heart failure with significant decrease in now mild perihilar predomin ant pulmonary edema with a few superimposed bands of discoid atelectasis. 2. Cardiomegaly. Reviewed, dictated and finalized at location A. IMPRESSION: 1. Likely resolving congestive heart failure with significant decrease in now m ild perihilar predominant pulmonary edema with a few superimposed bands of disc oid atelectasis. 2. Cardiomegaly.
--- NOTE | ~2021-12-03 | XR_ITS ---
EXAMINATION: XR chest 1V portable DATE: 12/03/2021 01:43 INDICATION: Shortness of breath TECHNIQUE: frontal view of the chest was obtained. COMPARISON: Chest radiograph dated 11/06/2021 FINDINGS: Persistent bandlike opacity in the right mid to upper lung zone consistent with discoid atelectasis/s carring. Increasing scattered more patchy airspace opacities throughout the right lung and in the lef t mid and lower lung zones. No pleural effusion or pneumothorax. Cardiomegaly. IMPRESSION: 1. Increasing bilateral lung disease which could represent pulmonary edema, atelectasis, pneumonia or some combination thereof. Reviewed, dictated and finalized at location A. IMPRESSION: 1. Increasing bilateral lung disease which could represent pulmonary edema, ate lectasis, pneumonia or some combination thereof.
--- NOTE | 2021-12-03 00:59 | ECG_ITS ---
Measurements Intervals [place] Rate: 109 P: 87 [place]: 185 QRS: 212 QRSD: 105 T: 50 QT: 365 QTc: 492 Interpretive Statements SINUS TACHYCARDIA RIGHT AXIS DEVIATION LEFT ATRIAL ENLARGEMENT LOW VOLTAGE- LIMB LEADS ANTEROSEPTAL INFARCT, AGE INDETERMINATE CONSIDER HIGH LATERAL INFARCT, AGE INDETERMINATE BASELINE WANDER- I, II, AVR, AVL, AVF, V1 ABNORMAL ECG Electronically Signed On 12-03-2021 7:19:05 CDT by Kike Barrow D.O.
--- NOTE | 2021-12-03 01:00 | ED.SOB ---
HPI - SOB/Dyspnea General Chief Complaint: Shortness of Breath/Dyspnea Stated Complaint: DIFFICULTY IN BREATHING; LOW O2 SATS Time Seen by Provider: 12/03/21 00:50 Source: patient, EMS, RN notes reviewed and old records reviewed Mode of arrival: EMS Limitations: no limitations History of Present Illness HPI Narrative: This is a 51 year old female with history of CHF, COPD, CONNOR who presents for evaluation of shortness of breath. EMS states patient was on 2 L NC on their arrival, and her oxygen saturation was in the mid 80s. They increased her oxygen to 6L and they report it was 89%. She was given albuterol nebulizer in route and her oxygen saturation increased to 96%. Patient is currently 96% on 4L NC. She states she developed shortness of breath because she was crying and upset. She is upset and states she is being neglected at the detention. She states nursing aides did not clean her up all day. She states she feels better. She denies worsening cough, chest pain, URI, fever, nausea or vomiting. EMS reports patient is on oxygen chronically but she refuses to wear it at night and she refuses her CPAP. Related Data Home Medications Medication Instructions Recorded Confirmed ascorbic acid (vitamin C) 500 mg 500 mg PO BID 08/03/21 12/03/21 tablet aspirin 81 mg tablet,delayed 81 mg PO DAILY ##0 08/03/21 12/03/21 release (Adult Low Dose Aspirin) atorvastatin 40 mg tablet 40 mg PO HS 08/03/21 12/03/21 carvedilol 25 mg tablet 25 mg PO BID 08/03/21 12/03/21 cholecalciferol (vitamin D3) 25 50 mcg PO DAILY 08/03/21 12/03/21 mcg (1,000 unit) tablet clonidine 0.2 mg/24 hr weekly 1 patch transdermal WEEKLY 08/03/21 12/03/21 transdermal patch escitalopram oxalate 10 mg tablet 10 mg PO DAILY 08/03/21 12/03/21 gabapentin 300 mg capsule 300 mg PO TID 08/03/21 12/03/21 hydroxyzine HCl 25 mg tablet 25 mg PO HS 08/03/21 12/03/21 multivit with minerals-iron 18 1 tablet PO DAILY 08/03/21 12/03/21 mg-folic ac 400 mcg-vit K 25 mcg tablet (Adults Multivitamin) olanzapine 5 mg tablet 5 mg PO HS 08/03/21 12/03/21 quetiapine 150 mg tablet,extended 150 mg PO HS 08/03/21 12/03/21 release 24 hr insulin lispro 100 unit/mL See Rx Instructions .Route .COMPLEX 10/02/21 12/03/21 subcutaneous solution (Humalog U-100 Insulin) ipratropium bromide 0.02 % 0.5 mg inhalation Q6H PRN 10/02/21 12/03/21 solution for inhalation Shortness Of Breath Or Wheezing albuterol sulfate 2.5 mg/0.5 mL 5 mg inhalation Q6HRT PRN 12/03/21 12/03/21 solution for nebulization Shortness Of Breath Or Wheezing Allergies Allergy/AdvReac Type Severity Reaction Status Date / Time citalopram AdvReac Unknown Verified 10/30/21 17:10 varenicline [From Chantix] AdvReac Unknown Verified 10/30/21 17:10 Review of Systems Review of Systems: All systems reviewed & are unremarkable except as noted in HPI and below Constitutional: Constitutional: Denies chills, Denies fatigue and Denies fever(s) ENT: Denies nasal congestion Cardiovascular: Cardiovascular: Denies chest pain and Denies rapid heart rate Respiratory: Respiratory: Denies chest congestion, Denies cough and Reports dyspnea Gastrointestinal: Gastrointestinal: Denies abdominal pain, Denies bloating, Denies nausea and Denies vomiting Integumentary/Breasts: Skin/Breast: Reports skin ulcer (chronic bilateral heel) [facility] Past Medical History Medical History (Updated 12/03/21 @ 06:28 by Edith Jennings DO) Chronic kidney disease, stage 3 With baseline creatinine around 1.7 Diabetic neuropathy Diastolic dysfunction Echocardiogram in July 2021 showed normal LV systolic function with an EF of 60 to 65% and diastolic dysfunction. 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
[2021-12-03 01:22] LABS: Basophils Absolute Auto 0.1 K/mm3 (0.0-0.1); Basophils Percent Auto 0.8 % (0.2-1.2); Eosinophils Absolute Auto 0.4 K/mm3 (0-0.3); Eosinophils Percent Auto 2.7 % (0-4.4); Hematocrit 39.9 % (37.0-47.0); Hemoglobin 11.7 g/dL (12.0-15.0); Immature Granulocyte Percent A 1.3 % (0-0.5); Lymphocytes Absolute Auto 3.46 K/mm3 (0.9-3.2); Lymphocytes Percent Auto 22.5 % (18.3-44.2); Mean Corpuscular HGB Conc 29.3 g/dl (32-36); Mean Corpuscular Volume 85.3 fl (80-100); Mean Platelet Volume 9.9 fl (7.4-10.4); Monocytes Absolute Auto 1.5 K/mm3 (0.1-0.6); Monocytes Percent Auto 9.6 % (2.6-8.5); Neutrophils Absolute Auto 9.7 K/mm3 (1.3-6.7); Neutrophils Percent Auto 63.1 % (45.5-73.1); Nucleated Red Blood Cells Perc 0.2 % (0.0-0.2); Platelet Count Result 249 k/mm3 (150-375); Red Blood Count 4.68 M/mm3 (4.2-5.4); Red Cell Distribution Width 22.4 % (11.5-14.5); White Blood Count 15.4 K/mm3 (4.5-10.0)
[2021-12-03 01:23] LABS: Alveolar/Arterial O2 Gradient 135.7 mmHg; Base Excess ABG 1.3 mEq/l (+/-2.0); Carboxyhemoglobin 4.4 % THb (0-2.0); Fractional Inspired Oxygen 36 %; HCO3 ABG 27.2 mEq/l (22.0-26.0); Methemoglobin ABG 0.2 %THb (0-1.5); Oxygen Content ABG 15.5 %vol (16.0-22.0); Oxygen Saturation ABG 92.1 % (95.0-100.0); PCO2 ABG 48.1 mmHg (35.0-45.0); PO2 ABG 65.2 mmHg (80.0-100.0); PO2 FiO2 Ratio Arterial Blood 1.81 %; Reduced Hemoglobin 7.9 %THb (0-5.0); Total Hemoglobin 12.6 g/dL (12.0-18.0)
[2021-12-03 01:25] LABS: Device NASAL CANNULA; Modified Allen's Test Unable to perform; Oxyhemoglobin 87.5 % THb (90.0-100.0); Site Drawn LEFT RADIAL
[2021-12-03 01:32] LABS: INR 1.1; Partial Thromboplastin Time 27.5 SECONDS (22.3-36.8); Prothrombin Time 13.3 Seconds (11.1-14.7)
[2021-12-03 01:33] LABS: Alanine Aminotransferase 18 U/L (6-35); Albumin Level 3.2 g/dL (3.5-5.1); Alkaline Phosphatase 93 U/L (38-126); Anion Gap 9 mmol/L (8-16); Aspartate Amino Transferase 28 U/L (14-36); Bilirubin,Total 0.3 mg/dL (0.2-1.3); Blood Urea Nitrogen 39 mg/dL (7-17); Calcium 8.4 mg/dL (8.4-10.2); Carbon Dioxide 30 mmol/L (22-30); Chloride 95 mmol/L (98-107); Estimated Glomerular Filt Rate 36; Glucose 269 mg/dL (65-110); Potassium 3.5 mmol/L (3.4-5.0); Sodium 134 mmol/L (137-145)
[2021-12-03 01:42] LABS: Anisocytosis 1+ (NORMAL); Hypochromasia 1+ (NORMAL); Ovalocytes 1+ (NORMAL); Platelet Estimate Adequate (Adequate)
[2021-12-03 01:51] LABS: NT Pro B Type Natriuretic Pept 3040 pg/mL (5-100); Troponin I 0.046 ng/mL (0.000-0.034)
[2021-12-03 01:58] LABS: SARS-CoV-2 RNA PCR Negative
[2021-12-03] MEDS: FUROSEMIDE INJ 40 MG/4 ML VIAL IV PUSH ×3 (02:25→20:40)
[2021-12-03] MEDS: NITROGLYCERIN OINTMENT 1 INCH DOSE TRANSDERM (02:25)
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
--- NOTE | 2021-12-03 03:45 | ADMGEN ---
This patient, Josy Perez, was admitted to IMU Room 209-01 at 0342. Patient/family oriented to hospital policies and general routines including ID bracelet, bed and alarms, visiting hours, pain management, procedures, bathroom and other care routines, personal items, smoking policy, room service/diet, and visiting hours. Information on how to activate the Rapid Response Team has been discussed. Patient/Family are encouraged to report perceived risks to care and to ask questions if they do not understand what they are told or what they should do.
[2021-12-03 07:38] LABS: Troponin I 0.055 ng/mL (0.000-0.034)
[2021-12-03 07:52] LABS: Glucose Point of Care 274 mg/dl (65-105)
[2021-12-03] MEDS: INSULIN GLARGINE (*BKC) 100 UNITS/ML 42 UNITS SUB-Q ×2 (08:54→20:40)
[2021-12-03] MEDS: INSULIN ASPART (*BKC) 100 UNITS/ML 8 UNITS SUB-Q ×3 (08:55→17:46)
[2021-12-03] MEDS: INSULIN ASPART (*BKC) 100 UNITS/ML SUB-Q ×2 (08:55→13:10)
[2021-12-03] MEDS: cloNIDine 0.2 MG/24 HR PATCH 1 PATCH TRANSDERM (08:57)
[2021-12-03] MEDS: ENOXAPARIN 40 MG/0.4 ML SYRINGE SUB-Q (08:58)
[2021-12-03] MEDS: hydrALAZINE HCL 25 MG TABLET 75 MG PO ×3 (08:58→17:45)
[2021-12-03] MEDS: FERROUS SULFATE 324 MG TABLET PO ×2 (09:01→17:45)
[2021-12-03] MEDS: GABAPENTIN 300 MG CAPSULE PO ×3 (09:01→17:45)
[2021-12-03] MEDS: ASCORBIC ACID 500 MG TABLET PO ×2 (09:01→17:45)
[2021-12-03] MEDS: CHOLECALCIFEROL 1,000 UNITS TABLET 2000 UNITS PO (09:01)
[2021-12-03] MEDS: BENZONATATE 100 MG CAPSULE PO (09:01)
[2021-12-03] MEDS: ESCITALOPRAM OXALATE 10 MG TABLET PO (09:02)
[2021-12-03] MEDS: carvediloL 25 MG TABLET PO ×2 (09:02→17:44)
[2021-12-03] MEDS: amLODIPine BESYLATE 5 MG TABLET 10 MG PO (09:02)
[2021-12-03] MEDS: ASPIRIN 81 MG ENTERIC TABLET PO (09:02)
[2021-12-03 09:41] LABS: Magnesium 2.1 mg/dL (1.6-2.3)
[2021-12-03 11:58] LABS: Glucose Point of Care 224 mg/dl (65-105)
[2021-12-03] MEDS: SILVERGEL (ELTA) 45 ML 1 APPLIC TOPICAL (13:12)
--- NOTE | 2021-12-03 13:25 | PC.NURSE ---
This patient, Josy Perez, was received from IMU on 12/03/21 at 1325. Patient/family oriented to unit policies and routines. Report received from RACHEL Powers.
--- NOTE | 2021-12-03 13:31 | PC.NURSE ---
This patient, Josy Perez, was transferred to [facility] on 12/03/21 at 1322. Personal belongings sent with patient. Report given to Ashtyn RAMOS. Appropriate documentation sent with patient.
--- NOTE | 2021-12-03 14:26 | PM.IMPN ---
Progress Note: A&P Assessment and Plan (1) Acute and chronic respiratory failure: Qualifiers: Respiratory failure complication: hypoxia and hypercapnia Qualified Code(s): J96.21 - Acute and chronic respiratory failure with hypoxia; J96.22 - Acute and chronic respiratory failure with hypercapnia Code(s): J96.20 - Acute and chronic respiratory failure, unspecified whether with hypoxia or hypercapnia Status: Acute Assessment and Plan: Due to acute diastolic heart failure exacerbation. COPD exacerbation less likely this patient's pH is compensated and pCO2 is stable compared to prior. Patient's chest x-ray appears more consistent with CHF exacerbation. Scheduled nebulizer treatments have been ordered. Will continue supplemental oxygen if the patient allows. The patient would benefit from BiPAP use but the patient refuses BiPAP and will often times refuse supplemental oxygen. 12/03/2021 interval history: patient is a morbidly obese with history of COPD and diastolic congestive heart failure presented with shortness of breath most likely multifactorial secondary to exacerbation of COPD, diastolic congestive heart failure, morbid obesity hypoventilation and patient is noncompliant with her BiPAP, patient is being diuresed treated with bronchodilator, patient states is unable to tolerate BiPAP will consult engraver lettering to help adjust the BiPAP setting to help the patient with noninvasive ventilator, will continue to monitor will have a PT OT evaluate the patient and further recommendation to follow. (2) CHF exacerbation: Qualifiers: Heart failure type: diastolic Qualified Code(s): I50.33 - Acute on chronic diastolic (congestive) heart failure Code(s): I50.9 - Heart failure, unspecified Status: Acute Assessment and Plan: Patient has acute on chronic diastolic heart failure exacerbation. I would not be surprising the patient was not necessarily compliant with her medications at the [facility]. Patient received Lasix in the ER. She was also given wanted to nitropaste which resulted in rapid improvement in respiratory status and blood pressure. Will continue Lasix 40 mg IV b.i.d.. Will monitor renal function closely given patient's history of chronic kidney disease. (3) Uncontrolled stage 2 hypertension: Code(s): I10 - Essential (primary) hypertension Status: Acute Assessment and Plan: Likely due to volume overload. Cannot completely exclude the possibility that the patient may have refused her antihypertensives at the [facility]. Patient's blood pressures have improved significantly at after wanted to nitropaste was applied. (4) Chronic renal insufficiency: Qualifiers: Chronic kidney disease stage: stage 3 (moderate) Chronic kidney disease stage 3 subtype: stage 3b (GFR 30-44) Qualified Code(s): N18.32 - Chronic kidney disease, stage 3b Code(s): N18.9 - Chronic kidney disease, unspecified Status: Acute Assessment and Plan: Patient's renal function is actually a little bit better than her baseline. Likely in part due to her relatively volume overloaded status. Will monitor creatinine daily. (5) Insulin dependent type 2 diabetes mellitus: Code(s): E11.9 - Type 2 diabetes mellitus without complications; Z79.4 - senior living (current) use of insulin Status: Acute Assessment and Plan: Patient's glucoses are elevated. Will resume the patient's home Lantus and will add high-dose sliding scale insulin and in addition to the patient's mealtime bolus insulin of 8 units t.i.d.. Will check Accu-Cheks a.c. HS and hypoglycemia protocol has been ordered. (6) Pressure ulcer of right heel: Code(s): L89.619 - Pressure ulcer of right heel, unspecified stage Status: Acute Assessment and Plan: Patient has chronic bilateral heel wounds. Nursing staff has yet to document heel wound and take pictu
[2021-12-03 16:47] LABS: Glucose Point of Care 130 mg/dl (65-105)
[2021-12-03 17:26] LABS: Alveolar/Arterial O2 Gradient 110.9 mmHg; Base Excess ABG 2.6 mEq/l (+/-2.0); Carboxyhemoglobin 0.9 % THb (0-2.0); Fractional Inspired Oxygen 36 %; HCO3 ABG 30.1 mEq/l (22.0-26.0); Methemoglobin ABG 0.4 %THb (0-1.5); Oxygen Saturation ABG 93.8 % (95.0-100.0); PCO2 ABG 60.1 mmHg (35.0-45.0); PO2 ABG 76.1 mmHg (80.0-100.0); PO2 FiO2 Ratio Arterial Blood 2.11 %; Reduced Hemoglobin 5.7 %THb (0-5.0); Total Hemoglobin 12.2 g/dL (12.0-18.0); pH ABG 7.317 (7.350-7.450)
--- NOTE | 2021-12-03 17:26 | PM.CNPUL ---
Assessment and Plan Assessment and plan (1) COPD (chronic obstructive pulmonary disease): Code(s): J44.9 - Chronic obstructive pulmonary disease, unspecified Status: Acute Assessment and Plan: Patient carries a history of COPD and her home medicine list contains albuterol and ipratroprium nebulizers Q 6 PRN. patient is an active smoker. Patient has no evidence of emphysema on most recent CT scan of the chest on 11/04/2021. I have no PFTs. At this time patient has no active wheezing. I do not feel this is an active COPD exacerbation. I will place patient on albuterol 2.5 mg nebulized q.6 hours and ipratropium 0.5 nebulized q.6 hours. At this time I feel no need for antibiotics, systemic steroids or inhaled corticosteroids. I agree with holding antibiotics at this time. Patient has evidence of fluid overload and I agree with aggressive diuresis per hospitalist and Cardiology teams as tolerated by her cardiac and renal systems. Patient is currently lethargic and I will obtain an ABG. If she has hypercarbic respiratory failure I will attempt noninvasive ventilation with an AVAPS mode which she may better tolerate. Of note patient was recently admitted on 10/30/2021 and wore BiPAP for 3 hours and then refused BiPAP daily through 11/06/2021. Will follow with you. (2) CONNOR (obstructive sleep apnea): Code(s): G47.33 - Obstructive sleep apnea (adult) (pediatric) Status: Acute Assessment and Plan: Patient carries a history of obstructive sleep apnea and intermittently wears a CPAP mask at the nursing facility. She does not know where her sleep study was performed. I will obtain empty to obtain additional medical records from her [place] on 12/04/2021. Will attempt to obtain a download from the [facility] to assess her compliance at the [facility]. History of Present Illness History of Present Illness Consult date: 12/03/21 Chief complaint: Decompensated CHF, acute on chronic respiratory fa Narrative: 12/03/2021: This is a new Pulmonary consult for noncompliance with BiPAP. 51-year-old woman with a history of obstructive sleep apnea, COPD, bipolar disorder, morbid obesity, intellectual disability diastolic congestive heart failure who presented from [facility] for hypoxemia. Patient presented to the emergency room with a white blood cell count of 15.4, 2.7% eosinophils equals 416 per micro L, BNP of 3040, positive troponins, COVID RT PCR test negative, a blood gas on 4 L of a pH of 7.37/48/65 and a creatinine of 1.5. Patient was treated for fluid overload with Lasix, COPD with albuterol and ipratropium and was admitted to the floor. Per nursing report she was attempted to be placed on BiPAP but she refused this therapy. Today the patient is sleeping but does arouse and follow simple commands and tells me that she does have obstructive sleep apnea and intermittently wears a CPAP. She does not know her settings and does not know where she had her sleep study performed. 12/03 Per the nurse patient was awake alert eating earlier today. She is lethargic but does open her eyes to name and follow simple commands with all 4 extremities. Patient is currently on 4 L with saturations 97%. There is no wheeze in. DATA: EXAMINATION: XR chest 1V portable DATE: 12/03/2021 01:43 INDICATION: Shortness of breath TECHNIQUE: frontal view of the chest was obtained. COMPARISON: Chest radiograph dated 11/06/2021 FINDINGS: Persistent bandlike opacity in the right mid to upper lung zone consistent with discoid atelectasis/scarring. Increasing scattered more patchy airspace opacities throughout the right lung and in the left mid and lower lung zones. No pleural effusion or pneumothorax. Cardiomegaly. IMPRESSION: 1. Increasing bilateral lung disease which could represent pulmonary edema, atelectasis, pneumonia or some combination thereof. EXAMINATION:
[2021-12-03 17:29] LABS: Device NASAL CANNULA; Modified Allen's Test Pass; Site Drawn LEFT RADIAL
[2021-12-03] MEDS: OLANZapine 5 MG TABLET PO (20:40)
[2021-12-03] MEDS: hydrOXYzine HCL 25 MG TABLET PO (20:40)
[2021-12-03] MEDS: ATORVASTATIN 40 MG TABLET PO (20:40)
[2021-12-03] MEDS: QUEtiapine FUMARATE XR 50 MG TAB.ER.24H 150 MG PO (20:40)
[2021-12-03] MEDS: ALBUTEROL SULFATE NEB 2.5 MG/0.5 ML INH INHALATION (20:50)
[2021-12-03] MEDS: IPRATROPIUM BR 0.02% INH SOLN 0.5 MG/2.5 ML VIAL INHALATION (20:50)
[2021-12-03 21:00] LABS: Glucose Point of Care 163 mg/dl (65-105)
[2021-12-04] VITALS (14 sets, daily range): BP systolic 119–173; BP diastolic 58–86; PULSE 72–88; RESP 18–24; TEMP 36–37.1; O2SAT 93–100; BMI 46.0
[2021-12-04] MEDS: ALBUTEROL SULFATE NEB 2.5 MG/0.5 ML INH INHALATION ×4 (02:10→21:08)
[2021-12-04] MEDS: IPRATROPIUM BR 0.02% INH SOLN 0.5 MG/2.5 ML VIAL INHALATION ×4 (02:10→21:06)
[2021-12-04 05:37] LABS: Alveolar/Arterial O2 Gradient 115.6 mmHg; Base Excess ABG 4.2 mEq/l (+/-2.0); Fractional Inspired Oxygen 35 %; HCO3 ABG 31.1 mEq/l (22.0-26.0); Oxygen Content ABG 15.1 %vol (16.0-22.0); Oxyhemoglobin 91.7 % THb (90.0-100.0); PCO2 ABG 57.7 mmHg (35.0-45.0); PO2 ABG 66.9 mmHg (80.0-100.0); PO2 FiO2 Ratio Arterial Blood 1.91 %; Total Hemoglobin 11.7 g/dL (12.0-18.0); pH ABG 7.349 (7.350-7.450)
[2021-12-04 05:38] LABS: Device OTHER DEVICE; Modified Allen's Test Unable to perform; Site Drawn LEFT RADIAL
[2021-12-04 06:02] LABS: Hematocrit 38.2 % (37.0-47.0); Hemoglobin 10.6 g/dL (12.0-15.0); Mean Corpuscular HGB Conc 27.7 g/dl (32-36); Mean Corpuscular Hemoglobin 25.1 pg (26-34); Mean Corpuscular Volume 90.3 fl (80-100); Mean Platelet Volume 10.3 fl (7.4-10.4); Platelet Count Result 249 k/mm3 (150-375); Red Blood Count 4.23 M/mm3 (4.2-5.4); Red Cell Distribution Width 22.5 % (11.5-14.5); White Blood Count 10.8 K/mm3 (4.5-10.0)
[2021-12-04 06:25] LABS: Anion Gap 10 mmol/L (8-16); Blood Urea Nitrogen 43 mg/dL (7-17); Calcium 8.1 mg/dL (8.4-10.2); Carbon Dioxide 29 mmol/L (22-30); Chloride 96 mmol/L (98-107); Estimated CRCL calculation 46 ml/min; Estimated Glomerular Filt Rate 29; Glucose 135 mg/dL (65-110); Potassium 3.8 mmol/L (3.4-5.0); Sodium 135 mmol/L (137-145)
[2021-12-04 08:03] LABS: Glucose Point of Care 158 mg/dl (65-105)
[2021-12-04] MEDS: ASPIRIN 81 MG ENTERIC TABLET PO (09:13)
[2021-12-04] MEDS: GABAPENTIN 300 MG CAPSULE PO ×3 (09:13→17:46)
[2021-12-04] MEDS: ESCITALOPRAM OXALATE 10 MG TABLET PO (09:13)
[2021-12-04] MEDS: ASCORBIC ACID 500 MG TABLET PO ×2 (09:13→17:45)
[2021-12-04] MEDS: hydrALAZINE HCL 25 MG TABLET 75 MG PO ×3 (09:14→17:46)
[2021-12-04] MEDS: SILVERGEL (ELTA) 45 ML 1 APPLIC TOPICAL (09:14)
[2021-12-04] MEDS: FERROUS SULFATE 324 MG TABLET PO ×2 (09:14→17:46)
[2021-12-04] MEDS: amLODIPine BESYLATE 5 MG TABLET 10 MG PO (09:14)
[2021-12-04] MEDS: CHOLECALCIFEROL 1,000 UNITS TABLET 2000 UNITS PO (09:14)
[2021-12-04] MEDS: FUROSEMIDE INJ 40 MG/4 ML VIAL IV PUSH ×2 (09:15→20:53)
[2021-12-04] MEDS: INSULIN GLARGINE (*BKC) 100 UNITS/ML 42 UNITS SUB-Q ×2 (09:15→20:57)
[2021-12-04] MEDS: INSULIN ASPART (*BKC) 100 UNITS/ML 8 UNITS SUB-Q ×3 (09:16→17:47)
[2021-12-04] MEDS: ENOXAPARIN 40 MG/0.4 ML SYRINGE SUB-Q (09:38)
--- NOTE | 2021-12-04 10:04 | PM.PNPUL ---
Progress Note: A&P Assessment and Plan (1) COPD (chronic obstructive pulmonary disease): Code(s): J44.9 - Chronic obstructive pulmonary disease, unspecified Status: Acute Assessment and Plan: Patient carries a history of COPD and her home medicine list contains albuterol and ipratroprium nebulizers Q 6 PRN. Patient has 18 PY history and is an active smoker. Patient has no evidence of emphysema on most recent CT scan of the chest on 11/04/2021. I have no PFTs. At this time patient has no active wheezing. I do not feel this is an active COPD exacerbation. I will place patient on albuterol 2.5 mg nebulized q.6 hours and ipratropium 0.5 nebulized q.6 hours. At this time I feel no need for antibiotics, systemic steroids or inhaled corticosteroids. I agree with holding antibiotics at this time. Patient has evidence of fluid overload and I agree with aggressive diuresis per hospitalist and Cardiology teams as tolerated by her cardiac and renal systems. Patient is currently lethargic and I will obtain an ABG. If she has hypercarbic respiratory failure I will attempt noninvasive ventilation with an AVAPS mode which she may better tolerate. Of note patient was recently admitted on 10/30/2021 and wore BiPAP for 3 hours and then refused BiPAP daily through 11/06/2021. ABG on 4 L nasal cannula the pH of 7.32/60/76. ? I will attempt noninvasive ventilation with an AVAPS mode rate of 18, tidal volume 450, EPAP 5, minimal inspiratory pressure 6, maximal inspiratory pressure 25, FiO2 35%.? I will obtain a blood gas in the morning prior to removal of the settings. ?patient has refused noninvasive ventilation in the past and if patient refuses NIV the level of care should be discussed with POA. Hospitalist spoke to the patient and she is DNR. 12/04 Patient intermittently wore the noninvasive ventilator last night and the nurses had to continue to struggle with her for her to wear it. The daytime nurse walked into the room and she had taken the mask off. The patient tells me she is not sure if she wore the mask last night. On the above AVAPS mode the patient had a morning blood gas of 7.35/58/67. White blood cell count is 10.8, creatinne is1.8, patient diuresed 75 mL since admission. No wheezes on exam. No wheezes on exam and I will continue albuterol and ipratropium nebulizers for now. Patient has chronic respiratory acidosis on her blood gas this morning and I will increase the backup rate on the AVAPS mode to 22 and increase the tidal volume to 500. The patient tells me that she will not wear the machine tonight but I have tried to convince her to wear the machine she states that the mask does not cause her face pain and that the air is delivered she just cannot tolerate anything on her mouth and nose. Discussed with . Will follow with you. (2) CONNOR (obstructive sleep apnea): Code(s): G47.33 - Obstructive sleep apnea (adult) (pediatric) Status: Acute Assessment and Plan: Patient carries a history of obstructive sleep apnea and intermittently wears a CPAP mask at the nursing facility. She does not know where her sleep study was performed. I will obtain empty to obtain additional medical records from her [place] on 12/04/2021. 12/04 Will attempt to obtain a download from the [facility] to assess [facility]. Subjective Date/time seen: 12/04/21 10:04 Interval history: 12/03/2021:? This is a new Pulmonary consult for noncompliance with BiPAP. ? 51-year-old woman with a history of obstructive sleep apnea,? COPD, bipolar disorder, morbid obesity, intellectual disability diastolic congestive heart failure who presented from [facility] for hypoxemia.? Patient presented to the emergency room with a white blood cell count of 15.4, 2.7% eosinophils equals 416 per micro L, BNP of 3040,? positive troponins, COVID RT PCR test negative, a blood
[2021-12-04] MEDS: carvediloL 25 MG TABLET PO ×2 (11:06→17:45)
[2021-12-04 11:49] LABS: Glucose Point of Care 206 mg/dl (65-105)
[2021-12-04] MEDS: INSULIN ASPART (*BKC) 100 UNITS/ML SUB-Q ×2 (12:43→17:47)
--- NOTE | 2021-12-04 14:40 | PCDIET ---
Pt is asking for multiple food items and meal trays. Agreed to send double protein portions to help with satiety.
--- NOTE | 2021-12-04 14:55 | PM.IMPN ---
Progress Note: A&P Assessment and Plan (1) Acute and chronic respiratory failure: Qualifiers: Respiratory failure complication: hypoxia and hypercapnia Qualified Code(s): J96.21 - Acute and chronic respiratory failure with hypoxia; J96.22 - Acute and chronic respiratory failure with hypercapnia Code(s): J96.20 - Acute and chronic respiratory failure, unspecified whether with hypoxia or hypercapnia Status: Acute Assessment and Plan: Due to acute diastolic heart failure exacerbation. COPD exacerbation less likely this patient's pH is compensated and pCO2 is stable compared to prior. Patient's chest x-ray appears more consistent with CHF exacerbation. Scheduled nebulizer treatments have been ordered. Will continue supplemental oxygen if the patient allows. The patient would benefit from BiPAP use but the patient refuses BiPAP and will often times refuse supplemental oxygen. appreciate Pulmonary is helped with setting of noninvasive ventilator. (2) CHF exacerbation: Qualifiers: Heart failure type: diastolic Qualified Code(s): I50.33 - Acute on chronic diastolic (congestive) heart failure Code(s): I50.9 - Heart failure, unspecified Status: Acute Assessment and Plan: Patient has acute on chronic diastolic heart failure exacerbation. continue diuresis (3) Uncontrolled stage 2 hypertension: Code(s): I10 - Essential (primary) hypertension Status: Acute Assessment and Plan: monitor (4) Chronic renal insufficiency: Qualifiers: Chronic kidney disease stage: stage 3 (moderate) Chronic kidney disease stage 3 subtype: stage 3b (GFR 30-44) Qualified Code(s): N18.32 - Chronic kidney disease, stage 3b Code(s): N18.9 - Chronic kidney disease, unspecified Status: Acute Assessment and Plan: monitor (5) Insulin dependent type 2 diabetes mellitus: Code(s): E11.9 - Type 2 diabetes mellitus without complications; Z79.4 - [employer] (current) use of insulin Status: Acute Assessment and Plan: monitor blood sugar and adjust insulin as needed (6) Pressure ulcer of right heel: Code(s): L89.619 - Pressure ulcer of right heel, unspecified stage Status: Acute Assessment and Plan: Patient has chronic bilateral heel wounds. Nursing staff has yet to document heel wound and take pictures. Patient did not allow me to evaluate the wounds in the ER. (7) Pressure ulcer, heel, left, unstageable: Code(s): L89.620 - Pressure ulcer of left heel, unstageable Status: Acute Assessment and Plan: Patient's left heel wound was previously unstageable. I was unable to evaluate the wounds. I am hoping that nursing staff can obtain pictures of the wounds. Continue localized wound care. Subjective Date/time seen: 12/04/21 14:55 no new complaints Exam Narrative: morbidly obese Patient is comfortable, NAD HEENT: eyes are clear and none icteric LUNGS: normal respiratory effort ABD: morbidly obese Lower extremities: no edema SKIN: nonjaundiced Neuro: grossly intact. Const: Other: Morbidly obese, appears older than stated age, no acute distress HENMT: Other: Nasal cannula in place, crowded posterior oropharynx, tacky mucous membranes, poor dentition Eyes: Other: Pupils are equal and reactive, no conjunctival pallor, no scleral icterus Neck: Other: Large neck circumference, no JVD Resp: Other: Decreased breath sounds bilaterally, snoring respirations, no increased work of breathing, no tachypnea Cardio: Other: Mild tachycardia, regular rate, 2+ pulses bilateral upper and lower extremities GI: Other: Obese, nontender, soft, ostomy in the lower abdomen with green appearing liquid stool : Other: Incontinent of urine, depends in place Skin: Other: No rashes of pannus fold currently, chronic heel wounds dressings not removed due to lack of patient
[2021-12-04 17:22] LABS: Glucose Point of Care 236 mg/dl (65-105)
[2021-12-04] MEDS: HYDROcodone/acetaminophen (*CRX) 5-325 MG TABLET 1 TAB PO (17:45)
[2021-12-04] MEDS: QUEtiapine FUMARATE XR 50 MG TAB.ER.24H 150 MG PO (20:52)
[2021-12-04] MEDS: ATORVASTATIN 40 MG TABLET PO (20:52)
[2021-12-04] MEDS: OLANZapine 5 MG TABLET PO (20:52)
[2021-12-04] MEDS: hydrOXYzine HCL 25 MG TABLET PO (20:53)
[2021-12-04 21:09] LABS: Glucose Point of Care 156 mg/dl (65-105)
[2021-12-05] VITALS (9 sets, daily range): BP systolic 127–146; BP diastolic 73–76; PULSE 71–79; RESP 18–23; TEMP 36.3–36.5; O2SAT 90–94
[2021-12-05] MEDS: ALBUTEROL SULFATE NEB 2.5 MG/0.5 ML INH INHALATION ×2 (01:48→08:40)
[2021-12-05] MEDS: IPRATROPIUM BR 0.02% INH SOLN 0.5 MG/2.5 ML VIAL INHALATION ×2 (01:48→08:39)
[2021-12-05 06:03] LABS: Base Excess ABG 4.2 mEq/l (+/-2.0); Fractional Inspired Oxygen 32 %; HCO3 ABG 30.8 mEq/l (22.0-26.0); Oxyhemoglobin 94.4 % THb (90.0-100.0); PCO2 ABG 56.1 mmHg (35.0-45.0); PO2 ABG 86.5 mmHg (80.0-100.0); Site Drawn LEFT RADIAL; pH ABG 7.358 (7.350-7.450)
[2021-12-05 06:04] LABS: Device NASAL CANNULA; Modified Allen's Test Pass
[2021-12-05 06:15] LABS: Hematocrit 37.2 % (37.0-47.0); Hemoglobin 11.2 g/dL (12.0-15.0); Mean Corpuscular HGB Conc 30.1 g/dl (32-36); Mean Corpuscular Hemoglobin 25.9 pg (26-34); Mean Corpuscular Volume 85.9 fl (80-100); Mean Platelet Volume 10.7 fl (7.4-10.4); Platelet Count Result 282 k/mm3 (150-375); Red Blood Count 4.33 M/mm3 (4.2-5.4); Red Cell Distribution Width 22.3 % (11.5-14.5); White Blood Count 9.8 K/mm3 (4.5-10.0)
[2021-12-05 06:28] LABS: Anion Gap 10 mmol/L (8-16); Blood Urea Nitrogen 48 mg/dL (7-17); Calcium 7.8 mg/dL (8.4-10.2); Carbon Dioxide 32 mmol/L (22-30); Chloride 95 mmol/L (98-107); Estimated CRCL calculation 42 ml/min; Estimated Glomerular Filt Rate 26; Glucose 141 mg/dL (65-110); Potassium 3.6 mmol/L (3.4-5.0); Sodium 137 mmol/L (137-145)
--- NOTE | 2021-12-05 06:54 | PCRCNOTE ---
patient removed NIV throughout the night; patient eventually refused further use prior to RT obtaining abg.
[2021-12-05 07:53] LABS: Glucose Point of Care 156 mg/dl (65-105)
[2021-12-05] MEDS: SILVERGEL (ELTA) 45 ML 1 APPLIC TOPICAL (08:41)
[2021-12-05] MEDS: ENOXAPARIN 40 MG/0.4 ML SYRINGE SUB-Q (08:41)
[2021-12-05] MEDS: hydrALAZINE HCL 25 MG TABLET 75 MG PO ×2 (08:42→17:06)
[2021-12-05] MEDS: ASCORBIC ACID 500 MG TABLET PO ×2 (08:42→17:06)
[2021-12-05] MEDS: CHOLECALCIFEROL 1,000 UNITS TABLET 2000 UNITS PO (08:42)
[2021-12-05] MEDS: GABAPENTIN 300 MG CAPSULE PO ×2 (08:42→17:06)
[2021-12-05] MEDS: amLODIPine BESYLATE 5 MG TABLET 10 MG PO (08:42)
[2021-12-05] MEDS: carvediloL 25 MG TABLET PO ×2 (08:42→17:06)
[2021-12-05] MEDS: ASPIRIN 81 MG ENTERIC TABLET PO (08:42)
[2021-12-05] MEDS: ESCITALOPRAM OXALATE 10 MG TABLET PO (08:42)
[2021-12-05] MEDS: FERROUS SULFATE 324 MG TABLET PO ×2 (08:42→17:07)
[2021-12-05] MEDS: HYDROcodone/acetaminophen (*CRX) 5-325 MG TABLET 1 TAB PO (08:42)
[2021-12-05] MEDS: INSULIN GLARGINE (*BKC) 100 UNITS/ML 42 UNITS SUB-Q ×2 (08:43→20:33)
[2021-12-05] MEDS: FUROSEMIDE INJ 40 MG/4 ML VIAL IV PUSH ×2 (08:43→20:30)
[2021-12-05] MEDS: INSULIN ASPART (*BKC) 100 UNITS/ML 8 UNITS SUB-Q ×3 (08:45→17:06)
--- NOTE | 2021-12-05 09:09 | PM.PNPUL ---
Progress Note: A&P Assessment and Plan (1) COPD (chronic obstructive pulmonary disease): Code(s): J44.9 - Chronic obstructive pulmonary disease, unspecified Status: Acute Assessment and Plan: Patient carries a history of COPD and her home medicine list contains albuterol and ipratroprium nebulizers Q 6 PRN. Patient has 18 PY history and is an active smoker. Patient has no evidence of emphysema on most recent CT scan of the chest on 11/04/2021. I have no PFTs. Patient has COPD with chronic hypercarbic and hypoxemic respiratory failure with blood gas on 10/02/2021 of 7.27/55/76, blood gas on 10/31/2021 of 7.27/56/61 on 3 L nasal cannula and this admission on 12/03/2021 at 4:57 p.m. of 7.32/60/76. She would benefit from noninvasive ventilation to prevent disease progression and subsequent hospitalizations. She tolerated BiPAP poorly and refused to wear this and is tolerating noninvasive ventilation with an AVAPS mode marginally better. 12/03 At this time patient has no active wheezing. I do not feel this is an active COPD exacerbation. I will place patient on albuterol 2.5 mg nebulized q.6 hours and ipratropium 0.5 nebulized q.6 hours. At this time I feel no need for antibiotics, systemic steroids or inhaled corticosteroids. I agree with holding antibiotics at this time. Patient has evidence of fluid overload and I agree with aggressive diuresis per hospitalist and Cardiology teams as tolerated by her cardiac and renal systems. Patient is currently lethargic and I will obtain an ABG. If she has hypercarbic respiratory failure I will attempt noninvasive ventilation with an AVAPS mode which she may better tolerate. Of note patient was recently admitted on 10/30/2021 and wore BiPAP for 3 hours and then refused BiPAP daily through 11/06/2021. ABG on 4 L nasal cannula the pH of 7.32/60/76. ? I will attempt noninvasive ventilation with an AVAPS mode rate of 18, tidal volume 450, EPAP 5, minimal inspiratory pressure 6, maximal inspiratory pressure 25, FiO2 35%.? I will obtain a blood gas in the morning prior to removal of the settings. ?patient has refused noninvasive ventilation in the past and if patient refuses NIV the level of care should be discussed with POA. Hospitalist spoke to the patient and she is DNR. 12/04 Patient intermittently wore the noninvasive ventilator last night and the nurses had to continue to struggle with her for her to wear it. The daytime nurse walked into the room and she had taken the mask off. The patient tells me she is not sure if she wore the mask last night. On the above AVAPS mode the patient had a morning blood gas of 7.35/58/67. White blood cell count is 10.8, creatinne is1.8, patient diuresed 75 mL since admission. No wheezes on exam. No wheezes on exam and I will continue albuterol and ipratropium nebulizers for now. Patient has chronic respiratory acidosis on her blood gas this morning and I will increase the backup rate on the AVAPS mode to 22 and increase the tidal volume to 500. The patient tells me that she will not wear the machine tonight but I have tried to convince her to wear the machine she states that the mask does not cause her face pain and that the air is delivered she just cannot tolerate anything on her mouth and nose. 12/05 patient currently is awake and complaining of pain. She denies any shortness of breath. No wheezes and will change her albuterol and Atrovent nebulizer to anoro ellipta 62.5/25 at 1 puff q.day. Per documentations and per nursing sign-out patient did wear her noninvasive ventilator with the AVAPS mode last night from approximately 23:15 through 4:25. settings were Sparkle Apt rate of 22, tidal volume 500, EPAP 5, minimal inspiratory pressure 6, maximal inspiratory pressure 25, inspiratory time 1.0 sec, rise of 3 and 35% FiO2. At 4:25 a.m. she refused the mask. She had a blood gas at 5:52 a.m. on 3 L
[2021-12-05 11:31] LABS: Glucose Point of Care 182 mg/dl (65-105)
--- NOTE | 2021-12-05 11:42 | PM.IMPN ---
Progress Note: A&P Assessment and Plan (1) Acute and chronic respiratory failure: Qualifiers: Respiratory failure complication: hypoxia and hypercapnia Qualified Code(s): J96.21 - Acute and chronic respiratory failure with hypoxia; J96.22 - Acute and chronic respiratory failure with hypercapnia Code(s): J96.20 - Acute and chronic respiratory failure, unspecified whether with hypoxia or hypercapnia Status: Acute Assessment and Plan: Diastolic CHF appears to be compensated currently. Appreciate Pulmonary is helped with setting of noninvasive ventilator. component of [facility] and [facility] (2) CHF exacerbation: Qualifiers: Heart failure type: diastolic Qualified Code(s): I50.33 - Acute on chronic diastolic (congestive) heart failure Code(s): I50.9 - Heart failure, unspecified Status: Acute Assessment and Plan: Appears compensated. (3) Uncontrolled stage 2 hypertension: Code(s): I10 - Essential (primary) hypertension Status: Acute Assessment and Plan: monitor (4) Chronic renal insufficiency: Qualifiers: Chronic kidney disease stage: stage 3 (moderate) Chronic kidney disease stage 3 subtype: stage 3b (GFR 30-44) Qualified Code(s): N18.32 - Chronic kidney disease, stage 3b Code(s): N18.9 - Chronic kidney disease, unspecified Status: Acute Assessment and Plan: monitor (5) Insulin dependent type 2 diabetes mellitus: Code(s): E11.9 - Type 2 diabetes mellitus without complications; Z79.4 - manager terminal (current) use of insulin Status: Acute Assessment and Plan: monitor blood sugar and adjust insulin as needed (6) Pressure ulcer of right heel: Code(s): L89.619 - Pressure ulcer of right heel, unspecified stage Status: Acute Assessment and Plan: Patient has chronic bilateral heel wounds. (7) Pressure ulcer, heel, left, unstageable: Code(s): L89.620 - Pressure ulcer of left heel, unstageable Status: Acute Assessment and Plan: Continue localized wound care. Subjective Date/time seen: 12/05/21 11:42 Doing okay. No new complaints. Exam Narrative: morbidly obese Patient is comfortable, NAD HEENT: eyes are clear and none icteric LUNGS: normal respiratory effort ABD: morbidly obese Lower extremities: no edema SKIN: nonjaundiced Neuro: grossly intact. Const: Other: Morbidly obese, appears older than stated age, no acute distress HENMT: Other: Nasal cannula in place, crowded posterior oropharynx, tacky mucous membranes, poor dentition Eyes: Other: Pupils are equal and reactive, no conjunctival pallor, no scleral icterus Neck: Other: Large neck circumference, no JVD Resp: Other: Decreased breath sounds bilaterally, snoring respirations, no increased work of breathing, no tachypnea Cardio: Other: Mild tachycardia, regular rate, 2+ pulses bilateral upper and lower extremities GI: Other: Obese, nontender, soft, ostomy in the lower abdomen with green appearing liquid stool : Other: Incontinent of urine, depends in place Skin: Other: No rashes of pannus fold currently, chronic heel wounds dressings not removed due to lack of patient cooperation Neuro: Other: Patient was somnolent aroused easily to verbal stimuli, moving upper extremities equally, no slurred speech, responses slowed, exam limited due to lack of cooperation Extrem: Other: 1+ pitting edema to the feet and ankles, chronic bilateral heel wounds with Kerlix dressings in place Psych: Other: Disheveled, poor attitude, poor insight and judgment Objective Data Vital Signs Vital Signs: Vital Signs - 24 hr 12/04/21 14:02 12/04/21 14:00 12/04/21 21:09 Temperature 98.2 F Pulse Rate 78 76 86 Respiratory Rate 20 18 18 Blood Pressure 143/78 H Pulse Oximetry 100 Oxygen Delivery Oxygen Flow Rate 12/04/21 21:10 12/04/21 20:00
[2021-12-05 16:37] LABS: Glucose Point of Care 112 mg/dl (65-105)
[2021-12-05] MEDS: ATORVASTATIN 40 MG TABLET PO (20:30)
[2021-12-05] MEDS: QUEtiapine FUMARATE XR 50 MG TAB.ER.24H 150 MG PO (20:30)
[2021-12-05] MEDS: hydrOXYzine HCL 25 MG TABLET PO (20:30)
[2021-12-05] MEDS: OLANZapine 5 MG TABLET PO (20:30)
[2021-12-05 20:39] LABS: Glucose Point of Care 122 mg/dl (65-105)
[2021-12-06] VITALS (10 sets, daily range): BP systolic 146–165; BP diastolic 73–76; PULSE 72–81; RESP 18–21; TEMP 36.2–36.9; O2SAT 86–95
[2021-12-06 04:38] LABS: Alveolar/Arterial O2 Gradient 120.7 mmHg; Base Excess ABG 4.6 mEq/l (+/-2.0); Fractional Inspired Oxygen 35 %; HCO3 ABG 30.2 mEq/l (22.0-26.0); Oxygen Content ABG 15.8 %vol (16.0-22.0); Oxygen Saturation ABG 94.4 % (95.0-100.0); Oxyhemoglobin 92.5 % THb (90.0-100.0); PO2 ABG 71.9 mmHg (80.0-100.0); PO2 FiO2 Ratio Arterial Blood 2.05 %; Total Hemoglobin 12.1 g/dL (12.0-18.0); pH ABG 7.407 (7.350-7.450)
[2021-12-06 04:40] LABS: Device NON-INVASIVE VENT; Modified Allen's Test Pass; Non-Invasive Expiratory Pressure 5 CMH2O; Non-Invasive Inspiratory Pressure 16 CMH2O; Non-Invasive Vent Rate 20 /MIN; Site Drawn RIGHT RADIAL
[2021-12-06 06:22] LABS: Hematocrit 37.9 % (37.0-47.0); Hemoglobin 11.1 g/dL (12.0-15.0); Mean Corpuscular HGB Conc 29.3 g/dl (32-36); Mean Corpuscular Hemoglobin 25.7 pg (26-34); Mean Corpuscular Volume 87.7 fl (80-100); Mean Platelet Volume 10.2 fl (7.4-10.4); Platelet Count Result 256 k/mm3 (150-375); Red Blood Count 4.32 M/mm3 (4.2-5.4); Red Cell Distribution Width 22.1 % (11.5-14.5); White Blood Count 10.2 K/mm3 (4.5-10.0)
[2021-12-06 06:48] LABS: Anion Gap 8 mmol/L (8-16); Blood Urea Nitrogen 55 mg/dL (7-17); Calcium 8.2 mg/dL (8.4-10.2); Carbon Dioxide 36 mmol/L (22-30); Chloride 93 mmol/L (98-107); Estimated CRCL calculation 35 ml/min; Estimated Glomerular Filt Rate 21; Glucose 124 mg/dL (65-110); NT Pro B Type Natriuretic Pept 1650 pg/mL (5-100); Sodium 137 mmol/L (137-145)
[2021-12-06] MEDS: UMECLIDINIUM/VILANTEROL 62.5-25 MCG ELLIPTA 1 PUFF INHALATION (07:55)
[2021-12-06 08:13] LABS: Glucose Point of Care 151 mg/dl (65-105)
[2021-12-06] MEDS: SILVERGEL (ELTA) 45 ML 1 APPLIC TOPICAL (08:52)
[2021-12-06] MEDS: hydrALAZINE HCL 25 MG TABLET 75 MG PO ×3 (08:52→17:14)
[2021-12-06] MEDS: ASPIRIN 81 MG ENTERIC TABLET PO (08:53)
[2021-12-06] MEDS: ENOXAPARIN 40 MG/0.4 ML SYRINGE SUB-Q (08:53)
[2021-12-06] MEDS: carvediloL 25 MG TABLET PO ×2 (08:54→17:14)
[2021-12-06] MEDS: FERROUS SULFATE 324 MG TABLET PO ×2 (08:54→17:15)
[2021-12-06] MEDS: amLODIPine BESYLATE 5 MG TABLET 10 MG PO (08:54)
[2021-12-06] MEDS: ESCITALOPRAM OXALATE 10 MG TABLET PO (08:54)
[2021-12-06] MEDS: CHOLECALCIFEROL 1,000 UNITS TABLET 2000 UNITS PO (08:54)
[2021-12-06] MEDS: GABAPENTIN 300 MG CAPSULE PO ×3 (08:54→17:15)
[2021-12-06] MEDS: ASCORBIC ACID 500 MG TABLET PO ×2 (08:54→17:14)
[2021-12-06] MEDS: HYDROcodone/acetaminophen (*CRX) 5-325 MG TABLET 1 TAB PO ×2 (09:00→16:30)
[2021-12-06] MEDS: SODIUM CHLORIDE 0.9% IV 1,000 ML 50 ML IV CONT (09:01)
[2021-12-06] MEDS: INSULIN ASPART (*BKC) 100 UNITS/ML 8 UNITS SUB-Q ×3 (09:02→17:16)
[2021-12-06] MEDS: INSULIN GLARGINE (*BKC) 100 UNITS/ML 42 UNITS SUB-Q ×2 (09:02→20:36)
--- NOTE | 2021-12-06 09:57 | P.PNPL_ITS ---
Progress Note: A&P Assessment and Plan (1) COPD (chronic obstructive pulmonary disease): Code(s): J44.9 - Chronic obstructive pulmonary disease, unspecified Status: Acute Assessment and Plan: Patient carries a history of COPD and her home medicine list contains albuterol and ipratroprium nebulizers Q 6 PRN. Patient has 18 PY history and is an active smoker. Patient has no evidence of emphysema on most recent CT scan of the chest on 11/04/2021. I have no PFTs. Patient has COPD with chronic hypercarbic and hypoxemic respiratory failure with blood gas on 10/02/2021 of 7.27/55/76, blood gas on 10/31/2021 of 7.27/56/61 on 3 L nasal cannula and this admission on 12/03/2021 at 4:57 p.m. of 7.32/60/76. She would benefit from noninvasive ventilation to prevent disease progression and subsequent hospitalizations. She tolerated BiPAP poorly and refused to wear this and is tolerating noninvasive ventilation with an AVAPS mode marginally better. 12/03 At this time patient has no active wheezing. I do not feel this is an active COPD exacerbation. I will place patient on albuterol 2.5 mg nebulized q.6 hours and ipratropium 0.5 nebulized q.6 hours. At this time I feel no need for antibiotics, systemic steroids or inhaled corticosteroids. I agree with holding antibiotics at this time. Patient has evidence of fluid overload and I agree with aggressive diuresis per hospitalist and Cardiology teams as tolerated by her cardiac and renal systems. Patient is currently lethargic and I will obtain an ABG. If she has hypercarbic respiratory failure I will attempt noninvasive ventilation with an AVAPS mode which she may better tolerate. Of note patient was recently admitted on 10/30/2021 and wore BiPAP for 3 hours and then refused BiPAP daily through 11/06/2021. ABG on 4 L nasal cannula the pH of 7.32/60/76. ? I will attempt noninvasive ventilation with an AVAPS mode rate of 18, tidal volume 450, EPAP 5, minimal inspiratory pressure 6, maximal inspiratory pressure 25, FiO2 35%.? I will obtain a blood gas in the morning prior to removal of the settings. ?patient has refused noninvasive ventilation in the past and if patient refuses NIV the level of care should be discussed with POA. Hospitalist spoke to the patient and she is DNR. 12/04 Patient intermittently wore the noninvasive ventilator last night and the nurses had to continue to struggle with her for her to wear it. The daytime nurse walked into the room and she had taken the mask off. The patient tells me she is not sure if she wore the mask last night. On the above AVAPS mode the patient had a morning blood gas of 7.35/58/67. White blood cell count is 10.8, creatinne is1.8, patient diuresed 75 mL since admission. No wheezes on exam. No wheezes on exam and I will continue albuterol and ipratropium nebulizers for now. Patient has chronic respiratory acidosis on her blood gas this morning and I will increase the backup rate on the AVAPS mode to 22 and increase the tidal volume to 500. The patient tells me that she will not wear the machine tonight but I have tried to convince her to wear the machine she states that the mask do es not cause her face pain and that the air is delivered she just cannot tolerate anything on her mouth and nose. 12/05 patient currently is awake and complaining of pain. She denies any shortness of breath. No wheezes and will change her albuterol and Atrovent nebulizer to anoro ellipta 62.5/25 at 1 puff q.day. Per documentations and per nursing sign-out patient did wear her noninvasive ventilator with the AVAPS mode last night from approximately 23:15 through 4:
[2021-12-06 11:37] LABS: Glucose Point of Care 170 mg/dl (65-105)
--- NOTE | 2021-12-06 12:01 | PM.IMPN ---
Progress Note: A&P Assessment and Plan (1) Acute and chronic respiratory failure: Qualifiers: Respiratory failure complication: hypoxia and hypercapnia Qualified Code(s): J96.21 - Acute and chronic respiratory failure with hypoxia; J96.22 - Acute and chronic respiratory failure with hypercapnia Code(s): J96.20 - Acute and chronic respiratory failure, unspecified whether with hypoxia or hypercapnia Status: Acute Assessment and Plan: Diastolic CHF appears to be compensated currently. Appreciate Pulmonary is helped with setting of noninvasive ventilator. component of [facility] and [facility] (2) CHF exacerbation: Qualifiers: Heart failure type: diastolic Qualified Code(s): I50.33 - Acute on chronic diastolic (congestive) heart failure Code(s): I50.9 - Heart failure, unspecified Status: Acute Assessment and Plan: Appears compensated. (3) Uncontrolled stage 2 hypertension: Code(s): I10 - Essential (primary) hypertension Status: Acute Assessment and Plan: monitor (4) Chronic renal insufficiency: Qualifiers: Chronic kidney disease stage: stage 3 (moderate) Chronic kidney disease stage 3 subtype: stage 3b (GFR 30-44) Qualified Code(s): N18.32 - Chronic kidney disease, stage 3b Code(s): N18.9 - Chronic kidney disease, unspecified Status: Acute Assessment and Plan: Slight bump in creatinine likely from dehydration. IV fluids given Dc Lasix. Will recheck BMP in the morning (5) Insulin dependent type 2 diabetes mellitus: Code(s): E11.9 - Type 2 diabetes mellitus without complications; Z79.4 - [facility] (current) use of insulin Status: Acute Assessment and Plan: monitor blood sugar and adjust insulin as needed (6) Pressure ulcer of right heel: Code(s): L89.619 - Pressure ulcer of right heel, unspecified stage Status: Acute Assessment and Plan: Patient has chronic bilateral heel wounds. (7) Pressure ulcer, heel, left, unstageable: Code(s): L89.620 - Pressure ulcer of left heel, unstageable Status: Acute Assessment and Plan: Continue localized wound care. Subjective Date/time seen: 12/06/21 12:01 No complaints Exam Narrative: morbidly obese Patient is comfortable, NAD HEENT: eyes are clear and none icteric LUNGS: normal respiratory effort ABD: morbidly obese Lower extremities: no edema SKIN: nonjaundiced Neuro: grossly intact. Const: Other: Morbidly obese, appears older than stated age, no acute distress HENMT: Other: Nasal cannula in place, crowded posterior oropharynx, tacky mucous membranes, poor dentition Eyes: Other: Pupils are equal and reactive, no conjunctival pallor, no scleral icterus Neck: Other: Large neck circumference, no JVD Resp: Other: Decreased breath sounds bilaterally, snoring respirations, no increased work of breathing, no tachypnea Cardio: Other: Mild tachycardia, regular rate, 2+ pulses bilateral upper and lower extremities GI: Other: Obese, nontender, soft, ostomy in the lower abdomen with green appearing liquid stool : Other: Incontinent of urine, depends in place Skin: Other: No rashes of pannus fold currently, chronic heel wounds dressings not removed due to lack of patient cooperation Neuro: Other: Patient was somnolent aroused easily to verbal stimuli, moving upper extremities equally, no slurred speech, responses slowed, exam limited due to lack of cooperation Extrem: Other: 1+ pitting edema to the feet and ankles, chronic bilateral heel wounds with Kerlix dressings in place Psych: Other: Disheveled, poor attitude, poor insight and judgment Objective Data Vital Signs Vital Signs: Vital Signs - 24 hr 12/05/21 14:00 12/05/21 21:46 12/05/21 22:41 Temperature 97.4 F L 97.7 F Pulse Rate 76 79 79 Respiratory Rate 21 H 18 23 H Blood Pressure 127/75 144/76 H Pul
[2021-12-06 17:08] LABS: Glucose Point of Care 174 mg/dl (65-105)
[2021-12-06] MEDS: OLANZapine 5 MG TABLET PO (20:35)
[2021-12-06] MEDS: hydrOXYzine HCL 25 MG TABLET PO (20:35)
[2021-12-06] MEDS: ATORVASTATIN 40 MG TABLET PO (20:35)
[2021-12-06] MEDS: QUEtiapine FUMARATE XR 50 MG TAB.ER.24H 150 MG PO (20:35)
--- NOTE | 2021-12-06 20:41 | PC.NURSE ---
Pt. refusing oxygen at this time. When asked to put back on her nasal cannula, pt. said no, I'm breathing fine. If I wasn't breathing fine, I'd put it on. Pt. educated on the need for oxygen to stay on at all times.
[2021-12-06 21:00] LABS: Glucose Point of Care 221 mg/dl (65-105)
[2021-12-07] MEDS: HYDROcodone/acetaminophen (*CRX) 5-325 MG TABLET 1 TAB PO ×2 (00:33→16:40)
[2021-12-07 06:00] VITALS: BP 147/66; PULSE 74; RESP 18; TEMP 36.7; O2SAT 88
--- NOTE | 2021-12-07 06:19 | PC.NURSE ---
Pt. refusing oxygen at all times from all nursing staff. Pt. saturating at 88% on room air. Pt. educated on the need for oxygen.
[2021-12-07 06:20] VITALS: O2SAT 88
[2021-12-07 06:29] LABS: Anion Gap 10 mmol/L (8-16); Blood Urea Nitrogen 53 mg/dL (7-17); Calcium 7.8 mg/dL (8.4-10.2); Carbon Dioxide 30 mmol/L (22-30); Chloride 94 mmol/L (98-107); Estimated CRCL calculation 40 ml/min; Estimated Glomerular Filt Rate 25; Glucose 156 mg/dL (65-110); Hemoglobin 10.9 g/dL (12.0-15.0); Mean Corpuscular HGB Conc 29.5 g/dl (32-36); Mean Corpuscular Hemoglobin 25.6 pg (26-34); Mean Corpuscular Volume 87.1 fl (80-100); Mean Platelet Volume 10.4 fl (7.4-10.4); Platelet Count Result 262 k/mm3 (150-375); Potassium 3.9 mmol/L (3.4-5.0); Red Blood Count 4.25 M/mm3 (4.2-5.4); Red Cell Distribution Width 21.4 % (11.5-14.5); Sodium 134 mmol/L (137-145); White Blood Count 10.6 K/mm3 (4.5-10.0)
[2021-12-07] MEDS: UMECLIDINIUM/VILANTEROL 62.5-25 MCG ELLIPTA 1 PUFF INHALATION (07:20)
[2021-12-07 07:24] VITALS: PULSE 73; RESP 20; O2SAT 93
[2021-12-07 08:00] VITALS: PULSE 70; RESP 20; O2SAT 93
[2021-12-07 08:00] LABS: Glucose Point of Care 159 mg/dl (65-105)
[2021-12-07 08:39] VITALS: PULSE 70
[2021-12-07] MEDS: ASPIRIN 81 MG ENTERIC TABLET PO (08:39)
[2021-12-07] MEDS: hydrALAZINE HCL 25 MG TABLET 75 MG PO ×2 (08:39→12:34)
[2021-12-07] MEDS: ASCORBIC ACID 500 MG TABLET PO (08:39)
[2021-12-07] MEDS: carvediloL 25 MG TABLET PO (08:39)
[2021-12-07] MEDS: ESCITALOPRAM OXALATE 10 MG TABLET PO (08:39)
[2021-12-07] MEDS: CHOLECALCIFEROL 1,000 UNITS TABLET 2000 UNITS PO (08:39)
[2021-12-07] MEDS: SILVERGEL (ELTA) 45 ML 1 APPLIC TOPICAL (08:40)
[2021-12-07] MEDS: GABAPENTIN 300 MG CAPSULE PO ×2 (08:40→12:34)
[2021-12-07] MEDS: ENOXAPARIN 40 MG/0.4 ML SYRINGE SUB-Q (08:40)
[2021-12-07] MEDS: INSULIN GLARGINE (*BKC) 100 UNITS/ML 42 UNITS SUB-Q (08:40)
[2021-12-07] MEDS: amLODIPine BESYLATE 5 MG TABLET 10 MG PO (08:40)
[2021-12-07] MEDS: FERROUS SULFATE 324 MG TABLET PO (08:40)
[2021-12-07] MEDS: INSULIN ASPART (*BKC) 100 UNITS/ML 8 UNITS SUB-Q ×2 (08:41→12:35)
--- NOTE | 2021-12-07 12:05 | PM.DS ---
DS: Admitting Diagnosis Discharge Date December 07, 2021 Admitting Diagnosis Acute on chronic hypercarbic respiratory failure DS: Discharge Diagnosis Discharge Diagnosis (1) Acute and chronic respiratory failure: Qualifiers: Respiratory failure complication: hypoxia and hypercapnia Qualified Code(s): J96.21 - Acute and chronic respiratory failure with hypoxia; J96.22 - Acute and chronic respiratory failure with hypercapnia Code(s): J96.20 - Acute and chronic respiratory failure, unspecified whether with hypoxia or hypercapnia Status: Acute Assessment and Plan: Diastolic CHF appears to be compensated currently. Appreciate Pulmonary is helped with setting of noninvasive ventilator. component of [facility] and [facility] (2) CHF exacerbation: Qualifiers: Heart failure type: diastolic Qualified Code(s): I50.33 - Acute on chronic diastolic (congestive) heart failure Code(s): I50.9 - Heart failure, unspecified Status: Acute Assessment and Plan: Appears compensated. (3) Uncontrolled stage 2 hypertension: Code(s): I10 - Essential (primary) hypertension Status: Acute Assessment and Plan: monitor (4) Chronic renal insufficiency: Qualifiers: Chronic kidney disease stage: stage 3 (moderate) Chronic kidney disease stage 3 subtype: stage 3b (GFR 30-44) Qualified Code(s): N18.32 - Chronic kidney disease, stage 3b Code(s): N18.9 - Chronic kidney disease, unspecified Status: Acute Assessment and Plan: At baseline (5) Insulin dependent type 2 diabetes mellitus: Code(s): E11.9 - Type 2 diabetes mellitus without complications; Z79.4 - correction (current) use of insulin Status: Acute Assessment and Plan: monitor blood sugar and adjust insulin as needed (6) Pressure ulcer of right heel: Code(s): L89.619 - Pressure ulcer of right heel, unspecified stage Status: Acute Assessment and Plan: Patient has chronic bilateral heel wounds. (7) Pressure ulcer, heel, left, unstageable: Code(s): L89.620 - Pressure ulcer of left heel, unstageable Status: Acute Assessment and Plan: Continue localized wound care. DS: Summary Hospital Course Hospital Course: Admitted for hypercarbic respiratory failure. Pulmonary was consulted and put the patient on noninvasive ventilator. This we maintained on patient's discharge. ABG this recently looks okay. Patient is not having any mental confusion or any other complaints. Patient can be discharged to facility. Time Spent with Patient Time attestation: Total time spent providing and/or coordinating discharge services: Exam Narrative: morbidly obese Patient is comfortable, NAD HEENT: eyes are clear and none icteric LUNGS: normal respiratory effort ABD: morbidly obese Lower extremities: no edema SKIN: nonjaundiced Neuro: grossly intact. Const: Other: Morbidly obese, appears older than stated age, no acute distress HENMT: Other: Nasal cannula in place, crowded posterior oropharynx, tacky mucous membranes, poor dentition Eyes: Other: Pupils are equal and reactive, no conjunctival pallor, no scleral icterus Neck: Other: Large neck circumference, no JVD Resp: Other: Decreased breath sounds bilaterally, snoring respirations, no increased work of breathing, no tachypnea Cardio: Other: Mild tachycardia, regular rate, 2+ pulses bilateral upper and lower extremities GI: Other: Obese, nontender, soft, ostomy in the lower abdomen with green appearing liquid stool : Other: Incontinent of urine, depends in place Skin: Other: No rashes of pannus fold currently, chronic heel wounds dressings not removed due to lack of patient cooperation Neuro: Other: Patient was somnolent aroused easily to verbal stimuli, moving upper extremities equally, no slurred speech, responses slowed, exam limited due to lack of nursing unit coordinator
[2021-12-07 12:14] LABS: Glucose Point of Care 137 mg/dl (65-105)
[2021-12-07 13:48] LABS: EDCOVIDSCREEN Negative (Negative)
[2021-12-07 14:00] VITALS: BP 102/53; PULSE 74; RESP 20; TEMP 36.4; O2SAT 92
[2021-12-07 16:10] LABS: Glucose Point of Care 154 mg/dl (65-105)
== END 2021-12-07 17:00 | DRG 133 ==
LOC: ANHED 01:15 → ANHIMU 02:54 → ANH3MEDSUR 13:22
PROVIDERS: Family Medicine; Internal Medicine Pulmonary Disease; Admitting Provider Internal Medicine; Emergency Provider General Practice; PCP Internal Medicine; Visit Provider Chiropractor
DX: J96.22 Acute and chronic respiratory failure with hypercapnia (principal); I50.33 Acute on chronic diastolic (congestive) heart failure; Z68.41 Body mass index [BMI] 40.0-44.9, adult; I13.0 Hypertensive heart and chronic kidney disease with heart failure and stage 1 through stage 4 chronic kidney disease, or unspecified chronic kidney disease; J96.21 Acute and chronic respiratory failure with hypoxia; E11.22 Type 2 diabetes mellitus with diabetic chronic kidney disease; E11.40 Type 2 diabetes mellitus with diabetic neuropathy, unspecified; N18.32 Chronic kidney disease, stage 3b; J44.9 Chronic obstructive pulmonary disease, unspecified; E66.2 Morbid (severe) obesity with alveolar hypoventilation; L89.622 Pressure ulcer of left heel, stage 2; L89.612 Pressure ulcer of right heel, stage 2; Z20.822 Contact with and (suspected) exposure to COVID-19; F31.9 Bipolar disorder, unspecified; F79 Unspecified intellectual disabilities; F17.210 Nicotine dependence, cigarettes, uncomplicated; H91.90 Unspecified hearing loss, unspecified ear; D50.9 Iron deficiency anemia, unspecified; Z79.4 Long term (current) use of insulin; Z79.82 Long term (current) use of aspirin; Z79.899 Other long term (current) drug therapy; Z91.19 Patient's noncompliance with other medical treatment and regimen
CPT/HCPCS: 36415; 36600; 71045; 80048; 80053; 82375; 82805; 82948; 83050; 83735; 83880; 84484; 85025; 85027; 85610; 85730; 87426; 93005; 94002; 94003; 94640; 96372; 96374; 99285; A9270; C9803; G0378; G0379; J1650; J1815; J1940; J7030; U0003; U0005

== ENCOUNTER 2022-01-17 12:56 | Emergency (ER) | payer OTHER, SELFPAY ==
[2022-01-17] VITALS (16 sets, daily range): BP systolic 136–150; BP diastolic 74–87; PULSE 68–86; RESP 16–20; TEMP 36.6–36.8; O2SAT 88–100
[2022-01-17 13:09] LABS: Basophils Absolute Auto 0.1 K/mm3 (0.0-0.1); Eosinophils Absolute Auto 0.5 K/mm3 (0-0.3); Eosinophils Percent Auto 3.2 % (0-4.4); Hematocrit 42.2 % (37.0-47.0); Hemoglobin 12.7 g/dL (12.0-15.0); Immature Granulocyte Absolute 0.06 K/mm3 (0.00-0.031); Immature Granulocyte Percent A 0.4 % (0-0.5); Lymphocytes Absolute Auto 2.25 K/mm3 (0.9-3.2); Lymphocytes Percent Auto 15.8 % (18.3-44.2); Mean Corpuscular HGB Conc 30.1 g/dl (32-36); Mean Corpuscular Hemoglobin 26.4 pg (26-34); Mean Corpuscular Volume 87.7 fl (80-100); Mean Platelet Volume 9.8 fl (7.4-10.4); Monocytes Absolute Auto 0.9 K/mm3 (0.1-0.6); Monocytes Percent Auto 6.4 % (2.6-8.5); Neutrophils Absolute Auto 10.5 K/mm3 (1.3-6.7); Neutrophils Percent Auto 73.2 % (45.5-73.1); Platelet Count Result 252 k/mm3 (150-375); Red Blood Count 4.81 M/mm3 (4.2-5.4); Red Cell Distribution Width 18.4 % (11.5-14.5); White Blood Count 14.3 K/mm3 (4.5-10.0)
[2022-01-17 13:25] LABS: INR 1.1; Prothrombin Time 13.4 Seconds (11.1-14.7)
[2022-01-17 13:26] LABS: Partial Thromboplastin Time 31.5 SECONDS (22.3-36.8)
[2022-01-17 13:27] LABS: Alanine Aminotransferase 26 U/L (6-35); Albumin Level 3.2 g/dL (3.5-5.1); Alkaline Phosphatase 85 U/L (38-126); Anion Gap 12 mmol/L (8-16); Aspartate Amino Transferase 29 U/L (14-36); Bilirubin,Total 0.3 mg/dL (0.2-1.3); Blood Urea Nitrogen 39 mg/dL (7-17); Calcium 8.4 mg/dL (8.4-10.2); Carbon Dioxide 24 mmol/L (22-30); Chloride 100 mmol/L (98-107); Estimated Glomerular Filt Rate 26; Glucose 238 mg/dL (65-110); Potassium 4.4 mmol/L (3.4-5.0); Sodium 136 mmol/L (137-145)
--- NOTE | 2022-01-17 15:05 | ED.GENADULT ---
HPI - General Adult General Chief complaint: GI Bleed Stated complaint: Blood in Ostomy bag Time Seen by Provider: 01/17/22 13:54 History of Present Illness HPI narrative: 51-year-old female presenting to the emergency department for evaluation of blood in her ostomy bag. Patient states that yesterday she had some food for which she has an allergy to and she noticed blood in the ostomy bag today. Patient does report some abdominal cramping. Patient is resting comfortably in the emergency department. Patient does have history of COPD, congestive heart failure, insulin-dependent diabetes. Patient is unsure on why she initially needed to have the ostomy placed. Patient's ostomy has been in place for approximately 2 years. Related Data Home Medications Medication Instructions Recorded Confirmed ascorbic acid (vitamin C) 500 mg 500 mg PO BID 08/03/21 12/03/21 tablet aspirin 81 mg tablet,delayed 81 mg PO DAILY ##0 08/03/21 12/03/21 release (Adult Low Dose Aspirin) atorvastatin 40 mg tablet 40 mg PO HS 08/03/21 12/03/21 carvedilol 25 mg tablet 25 mg PO BID 08/03/21 12/03/21 cholecalciferol (vitamin D3) 25 50 mcg PO DAILY 08/03/21 12/03/21 mcg (1,000 unit) tablet clonidine 0.2 mg/24 hr weekly 1 patch transdermal WEEKLY 08/03/21 12/03/21 transdermal patch escitalopram oxalate 10 mg tablet 10 mg PO DAILY 08/03/21 12/03/21 gabapentin 300 mg capsule 300 mg PO TID 08/03/21 12/03/21 hydroxyzine HCl 25 mg tablet 25 mg PO HS 08/03/21 12/03/21 multivit with minerals-iron 18 1 tablet PO DAILY 08/03/21 12/03/21 mg-folic ac 400 mcg-vit K 25 mcg tablet (Adults Multivitamin) olanzapine 5 mg tablet 5 mg PO HS 08/03/21 12/03/21 quetiapine 150 mg tablet,extended 150 mg PO HS 08/03/21 12/03/21 release 24 hr insulin lispro 100 unit/mL See Rx Instructions .Route .COMPLEX 10/02/21 12/03/21 subcutaneous solution (Humalog U-100 Insulin) ipratropium bromide 0.02 % 0.5 mg inhalation Q6H PRN 10/02/21 12/03/21 solution for inhalation Shortness Of Breath Or Wheezing albuterol sulfate 2.5 mg/0.5 mL 5 mg inhalation Q6HRT PRN 12/03/21 12/03/21 solution for nebulization Shortness Of Breath Or Wheezing Allergies Allergy/AdvReac Type Severity Reaction Status Date / Time citalopram AdvReac Unknown Verified 01/17/22 12:40 varenicline [From Chantix] AdvReac Unknown Verified 01/17/22 12:40 Review of Systems Review of Systems: CONSTITUTIONAL: Denies fever, chills, or sweats. EYES: Denies visual changes, redness, or discharge. ENT: Denies rhinorrhea, congestion, sore throat, or otalgia. CARDIOVASCULAR: Denies chest pain, palpitations, or edema. RESPIRATORY: Denies cough or dyspnea. GASTROINTESTINAL: See HPI GENITOURINARY: Denies dysuria or hematuria. SKIN: Denies rash or itching. MUSCULOSKELETAL: Denies back pain, joint pain, or myalgia. NEUROLOGIC: Denies headache, numbness, or weakness. [facility] Past Medical History Medical History (Updated 01/18/22 @ 00:00 by Background Daemon) Chronic kidney disease, stage 3 With baseline creatinine around 1.7 Diabetic neuropathy Diastolic dysfunction Echocardiogram in July 2021 showed normal LV systolic function with an EF of 60 to 65% and diastolic dysfunction. 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 During that hospitalization she had a colostomy placed and had debridement. Hearing loss Hypertension Injury, spleen, with hematoma Versus abscess Insulin dependent type 2 diabetes mellitus Iron deficiency anemia Major depression with psychotic features Morbid obesity Previously 51 down to 44. Obstructive sleep apnea Refuses CPAP/BiPAP Sex
--- NOTE | 2022-01-17 15:43 | PC.NURSE ---
ostomy pouch changed. skin around pouch has excoriated areas. Area gently cleaned and dried before pouch applied. Pt wanted brief removed because she states it's hurting my butt. Yeast noted to agatha area and excoriation. ERP notified.
[2022-01-17] MEDS: FLUCONAZOLE 150 MG TABLET PO (16:09)
== END 2022-01-17 17:39 | disposition home or self-care (01) ==
PROVIDERS: Emergency Medicine; Emergency Provider Emergency Medicine
DX: K94.02 Colostomy infection (principal); B37.9 Candidiasis, unspecified; Y83.2 Surgical operation with anastomosis, bypass or graft as the cause of abnormal reaction of the patient, or of later complication, without mention of misadventure at the time of the procedure; J44.9 Chronic obstructive pulmonary disease, unspecified; I13.0 Hypertensive heart and chronic kidney disease with heart failure and stage 1 through stage 4 chronic kidney disease, or unspecified chronic kidney disease; E11.22 Type 2 diabetes mellitus with diabetic chronic kidney disease; E11.40 Type 2 diabetes mellitus with diabetic neuropathy, unspecified; I50.30 Unspecified diastolic (congestive) heart failure; N18.30 Chronic kidney disease, stage 3 unspecified; D50.9 Iron deficiency anemia, unspecified; G47.33 Obstructive sleep apnea (adult) (pediatric); F32.A Depression, unspecified; Z79.4 Long term (current) use of insulin; Z79.82 Long term (current) use of aspirin; Z79.51 Long term (current) use of inhaled steroids; F17.210 Nicotine dependence, cigarettes, uncomplicated
CPT/HCPCS: 36415; 80053; 85025; 85610; 85730; 86850; 86900; 86901; 99284; A9270

== ENCOUNTER 2022-05-01 14:55 | Inpatient (IN) | payer OTHER, SELFPAY ==
[2022-05-01] VITALS (17 sets, daily range): BP systolic 125–144; BP diastolic 61–82; PULSE 71–95; RESP 12–21; TEMP 37.7; O2SAT 90–100
--- NOTE | ~2022-05-01 | XR_ITS ---
EXAMINATION: XR chest 1V portable DATE: 05/01/2022 16:35 INDICATION: Intermittent chest pain TECHNIQUE: frontal view of the chest was obtained. COMPARISON: Chest radiograph dated FINDINGS: Mild cardiomegaly with pulmonary vascular congestion but without sundeep pulmonary edema. Small left pl eural effusion. Mild streaky opacities at the bilateral lung bases and favor atelectasis over pneumon ia. No pneumothorax or right-sided pleural effusion. Calcified nodule at the left lung base consisten t with old granulomatous disease. IMPRESSION: 1. Cardiomegaly with pulmonary vascular congestion but without sundeep pulmonary edema. 2. Mild streaky bibasilar opacities and favor atelectasis over pneumonia. 3. Small left pleural effusion Reviewed, dictated and finalized at location B. S DRIVER
--- NOTE | ~2022-05-01 | CT_ITS ---
EXAMINATION: CT abdomen pelvis wo con DATE: 05/01/2022 17:01 INDICATION: Assess for gangrene. Fever. Vaginal itching and erythema. TECHNIQUE: Computed tomography (CT) of the abdomen and pelvis was performed without intravenous contr ast. Automated exposure control and iterative reconstruction technique were employed. The dose-length product was 1687.82 mGy-cm. COMPARISON: 03/09/2020 FINDINGS: Small left pleural effusion with dependent compressive atelectasis in the left lower lobe. Calcified nodule in the atelectatic portion of the left lower lobe consistent with old granulomatous disease. A dditional discoid atelectasis at the lingula and right lower lobe. Cardiomegaly. No pericardial effus ion. Liver, pancreas and bilateral adrenal glands are normal. Porcelain gallbladder with diffuse gall bladder wall calcification. There is new focal splenic atrophy at the site of a prior geographic hypo dense region likely representing evolution of a prior splenic infarct. Left lower quadrant and colost darilng with Rajan's pouch. Small bowel and appendix are normal. Gas and a Chen catheter in the bladde r. Anteverted uterus and bilateral adnexa are unremarkable. Enhancing is some inflammatory stranding posterior to the sacrum and coccyx with suggestion of a small amount of superficial perianal subcutan eous phlegmonous change. No evident abscess or soft tissue gas. No cortical erosions at the sacrum or coccyx to suggest osteomyelitis. Moderate spondylosis at the lumbosacral junction and lower thoracic spine with mild intervening lumbar spondylosis. Unchanged small sclerotic likely bone islands at the right posterior iliac spine. IMPRESSION: 1. Persistent inflammation consistent with cellulitis posterior to the sacrum and coccyx and suggesti on of mild perirenal superficial subcutaneous phlegmonous change without evident abscess, soft tissue gas or underlying ostomy myelitis. 2. Small left pleural effusion. 3. Porcelain gallbladder. Reviewed, dictated and finalized at location B. ISLAND ATTENDANT IMPRESSION: 1. Persistent inflammation consistent with cellulitis posterior to the sacrum a nd coccyx and suggestion of mild perirenal superficial subcutaneous phlegmonous change without evident abscess, soft tissue gas or underlying ostomy myelitis. 2. Small left pleural effusion. 3. Porcelain gallbladder.
--- NOTE | ~2022-05-01 | XR_ITS ---
EXAM: XR foot RT min 3V, XR foot LT min 3V DATE: 05/10/2022 16:55 HISTORY: Heel ulcer . COMPARISON: None available. FINDINGS: Severely decreased mineralization. No fracture or dislocation. No lytic or blastic lesion. Suboptimal external oblique view of the left foot. Scattered degenerative changes. Large soft tissue defect over the right heel likely exposing bone. Subjacent cortical erosion in the right calcaneus. No definite soft tissue defect over the left heel. IMPRESSION: Large right heel ulcer with right calcaneal osteomyelitis. No definite radiographic evide nce of osteomyelitis elsewhere in the right foot or in the left foot. Reviewed, dictated and finalized at location K. INE PACKAGE SEALER IMPRESSION: Large right heel ulcer with right calcaneal osteomyelitis. No defin ite radiographic evidence of osteomyelitis elsewhere in the right foot or in th e left foot.
--- NOTE | 2022-05-01 15:06 | ECG_ITS ---
Measurements Intervals [place] Rate: 127 P: FL: 0 QRS: 92 QRSD: 159 T: -67 QT: 330 QTc: 480 Interpretive Statements UNINTERPRETABLE ECG Electronically Signed On 05-01-2022 16:54:57 DIRECTOR OF INSTITUTIONAL SALES by Magdiel Ambrosio M.D.
[2022-05-01 15:21] LABS: Basophils Absolute Auto 0.1 K/mm3 (0.0-0.1); Basophils Percent Auto 0.4 % (0.2-1.2); Eosinophils Percent Auto 0.1 % (0-4.4); Hematocrit 44.4 % (37.0-47.0); Immature Granulocyte Absolute 0.12 K/mm3 (0.00-0.031); Immature Granulocyte Percent A 0.6 % (0-0.5); Lymphocytes Absolute Auto 2.21 K/mm3 (0.9-3.2); Lymphocytes Percent Auto 10.8 % (18.3-44.2); Mean Corpuscular HGB Conc 31.5 g/dl (32-36); Mean Corpuscular Hemoglobin 27.4 pg (26-34); Mean Corpuscular Volume 86.9 fl (80-100); Mean Platelet Volume 9.5 fl (7.4-10.4); Monocytes Absolute Auto 1.5 K/mm3 (0.1-0.6); Monocytes Percent Auto 7.3 % (2.6-8.5); Neutrophils Absolute Auto 16.5 K/mm3 (1.3-6.7); Neutrophils Percent Auto 80.8 % (45.5-73.1); Platelet Count Result 303 k/mm3 (150-375); Red Blood Count 5.11 M/mm3 (4.2-5.4); Red Cell Distribution Width 16.4 % (11.5-14.5); White Blood Count 20.4 K/mm3 (4.5-10.0)
[2022-05-01 15:31] LABS: INR 1.1; Prothrombin Time 14.1 Seconds (11.1-14.7)
[2022-05-01 15:32] LABS: Alanine Aminotransferase 19 U/L (6-35); Albumin Level 3.5 g/dL (3.5-5.1); Alkaline Phosphatase 94 U/L (38-126); Anion Gap 11 mmol/L (8-16); Aspartate Amino Transferase 22 U/L (14-36); Bilirubin,Total 0.5 mg/dL (0.2-1.3); Blood Urea Nitrogen 53 mg/dL (7-17); Calcium 8.1 mg/dL (8.4-10.2); Carbon Dioxide 26 mmol/L (22-30); Chloride 94 mmol/L (98-107); Estimated CRCL calculation 31 ml/min; Estimated Glomerular Filt Rate 20; Glucose 252 mg/dL (65-110); Lipase 29 U/L (23-300); Potassium 3.2 mmol/L (3.4-5.0); Sodium 131 mmol/L (137-145)
[2022-05-01 15:43] LABS: Troponin I 0.021 ng/mL (0.000-0.034)
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
--- NOTE | 2022-05-01 16:24 | ECG_ITS ---
Measurements Intervals [place] Rate: 73 P: 72 MI: 206 QRS: 240 QRSD: 97 T: 37 QT: 430 QTc: 474 Interpretive Statements SINUS RHYTHM LEFT ATRIAL ENLARGEMENT [-0.15mV P WAVE IN V1/V2] MARKED RIGHT AXIS DEVIATION [QRS AXIS > 100] POSSIBLE ANTERIOR MYOCARDIAL INFARCTION , OF INDETERMINATE AGE [30 ms Q WAVE IN V3/V4, OR R < 0.2 mV IN V4] ABNORMAL ECG COMPARED TO ECG 05/01/2022 15:07:10 SINUS RHYTHM NOW PRESENT Electronically Signed On 05-01-2022 16:56:13 POCKET CUTTER by Magdiel Ambrosio M.D.
--- NOTE | 2022-05-01 16:24 | PC.NURSE ---
repeat EKG ordered per Dr. Wilburn request
--- NOTE | 2022-05-01 16:46 | PC.NURSE ---
Pt to ED per EMS from [facility]. pt was placed in room 9 for evaluation. Upon undressing pt to place in gown and on monitor a rotting odor noticed and became worse when pt's pants were removed. Informed ERP to evaluated agatha area and vulva appears macerated, swollen and red. Yellow thick substance noted in labial folds. Pt states it hurts from the front to my butt hole. Swelling redness what also appears to be macerated tissue noted in pt gluteal crevice. Pt has area to right thigh that is broken down tissue in the shape of russ. Bilateral heels wrapped from dressing change at [place], dressing not removed at this moment. Pt placed on the monitor SLN place and pt repositioned for comfort.
[2022-05-01] MEDS: MORPHINE SULFATE (*CRX) 4 MG/ML INJ IV PUSH (16:49)
[2022-05-01 16:51] LABS: Add Urine Microscopic? YES; Appearance Urine Cloudy (Clear); Bilirubin Urine Negative (Negative); Blood Urine Trace-Intact (Negative); Color Urine Light Yellow (Yellow); Glucose Urine UA Negative (Negative); Ketones Urine Negative (Negative); Leukocyte Esterase Ur Trace LEU/UL (Negative); Nitrate Urine Negative (Negative); Protein Urine 3+ mg/dL (Negative); Specific Grav Ur 1.025 (1.001-1.035); Urobilinogen Urine 0.2 mg/dL (<2.0); pH Urine 5.5 (5.0-9.0)
[2022-05-01] MEDS: SODIUM CHLORIDE 0.9% IV 1,000 ML 999 ML IV CONT (16:51)
[2022-05-01 16:55] LABS: Amorphous Sediment Urine Few; Bacteria Urine 4+ /hpf; Mucus Urine Rare /lpf; WBC Clumps Urine Present /HPF; WBC Urine >75 /hpf
--- NOTE | 2022-05-01 17:14 | PC.NURSE ---
spoke with Fernanda RN and Bere, wound nurse at [facility]. both state that there are specific orders for wound care for patient, however, she refuses treatment and is noncompliant with the treatments d/t not wanting to miss her smoke breaks. per [facility], patient wants to sit up in the chair all day long. facility is aware and described region to vagina, coccyx and heels and what treatment each is to receive per orders.
--- NOTE | 2022-05-01 17:26 | PC.NURSE ---
spoke with patient and told her what the facility said regarding daily wound care. patient screams they are lying .
[2022-05-01 18:11] LABS: Lactic Acid Reflex 1.6 mmol/L (0.7-2.0)
[2022-05-01 18:23] LABS: Alanine Aminotransferase 16 U/L (6-35); Albumin Level 3.4 g/dL (3.5-5.1); Alkaline Phosphatase 84 U/L (38-126); Anion Gap 10 mmol/L (8-16); Aspartate Amino Transferase 20 U/L (14-36); Bilirubin,Total 0.4 mg/dL (0.2-1.3); Blood Urea Nitrogen 50 mg/dL (7-17); Calcium 7.6 mg/dL (8.4-10.2); Carbon Dioxide 25 mmol/L (22-30); Chloride 94 mmol/L (98-107); Estimated CRCL calculation 32 ml/min; Estimated Glomerular Filt Rate 21; Glucose 167 mg/dL (65-110); Potassium 2.8 mmol/L (3.4-5.0); Sodium 129 mmol/L (137-145)
[2022-05-01 18:24] LABS: Troponin I 0.019 ng/mL (0.000-0.034)
[2022-05-01 18:28] LABS: CRP 17.2 mg/dL (<1.0)
[2022-05-01 18:55] LABS: Influenza A QL RT-PCR Negative (Negative); Influenza B QL RT-PCR Negative (Negative); SARS-CoV-2 RNA PCR Negative
--- NOTE | 2022-05-01 19:17 | PM.IMHP ---
H&P: HPI History of Present Illness Date/Time: 05/01/22 19:17 Chief Complaint: Multiple complaints Narrative: This is a 51-year-old female patient who comes from the care home. The patient has numerous complaints. The patient stated that she had chest pain for several weeks and is getting worse. She also states she was short of breath. The patient stated that the chest pain was constant there was no relieving factors. The patient complains of pain to her bottom and vagina and a foul smelling her from those areas. The patient also has ulcerated areas to her heels. The patient is diabetic and his psychiatric conditions. She has mental disabilities. The care home reportedly stated that the patient is noncompliant with wound care treatment. Her white count is 20.4. Her potassium was found to be 2.8 and her sodium 129. Abdominal pelvis CT was read as the following. Persistent inflammation consistent with cellulitis posterior to the sacrum and coccyx and suggestion of mild perirenal superficial subcutaneous phlegmonous change without evident abscess, soft tissue gas or underlying ostomy myelitis. 2. Small left pleural effusion. 3. Porcelain gallbladder. Chest x-ray read as follows. Cardiomegaly with pulmonary vascular congestion but without sundeep pulmonary edema. 2. Mild streaky bibasilar opacities and favor atelectasis over pneumonia. 3. Small left pleural effusion The patient was started on cefepime Flagyl and vancomycin. She was also given morphine for discomfort Troponins are nonreactive x3. C reactive protein 17.2. Urine is positive for UT. Patient is negative for influenza A/B and COVID. The patient is being admitted for observation status on the date of service of 05/01/2022 I Review of Systems Review of Systems: See HPI All systems reviewed & are unremarkable except as noted in HPI and below Constitutional: Constitutional: Reports as per HPI and Reports no additional constitutional complaints Eyes: Eyes: Reports as per HPI and Reports no additional eye complaints ENT: Reports system reviewed and no additional complaints, except as documented and Reports Normal hearing present Cardiovascular: Cardiovascular: Reports no additional cardiovascular complaints Respiratory: Respiratory: Reports no additional respiratory complaints and Reports no additional respiratory complaints Gastrointestinal: Gastrointestinal: Reports as per HPI and Reports no additional gastrointestinal complaints Musculoskeletal: Musculoskeletal: Reports no additional musculoskeletal complaints Integumentary/Breasts: Skin/Breast: Reports system reviewed and no additional complaints, except as docu and Reports as per HPI Neurologic: Reports system reviewed and no additional complaints, except as documented, Reports as per HPI and Reports Normal hearing present Psychiatric: Psychiatric: Reports no additional psychiatric complaints and Reports as per HPI Endocrine: Endocrine: Reports no additional endocrine complaints Hematologic/Lymphatic: Hematologic/Lymphatic: Reports no additional hematologic/lymphatic complaints Allergic/Immunologic: Allergic/Immunologic: Reports no additional allergic/immunologic complaints [facility] Past Medical History Medical History (Updated 05/02/22 @ 00:46 by Erin Zamora NP) CHF (congestive heart failure) Chronic kidney disease, stage 3 With baseline creatinine around 1.7 COPD with acute exacerbation Diabetic neuropathy Diastolic dysfunction Echocardiogram in July 2021 showed normal LV systolic function with an EF of 60 to 65% and diastolic dysfunction. 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
[2022-05-01] MEDS: POTASSIUM CHLORIDE 20 MEQ TABLET 40 MEQ PO (19:31)
[2022-05-01] MEDS: HYDROcodone/acetaminophen (*CRX) 7.5-325 MG TABLET 1 TAB PO (19:31)
[2022-05-01] MEDS: metroNIDAZOLE 500 MG/ISO 100ML 500 MG/100 ML BAG 100 MG IVPB (19:33)
[2022-05-01 21:43] LABS: Troponin I 0.018 ng/mL (0.000-0.034)
[2022-05-02] VITALS (10 sets, daily range): BP systolic 134–170; BP diastolic 61–78; PULSE 70–96; RESP 16–22; TEMP 36.2–37.2; O2SAT 92–99; BMI 49.6
[2022-05-02 01:33] LABS: Anion Gap 10 mmol/L (8-16); Blood Urea Nitrogen 53 mg/dL (7-17); Calcium 7.8 mg/dL (8.4-10.2); Carbon Dioxide 23 mmol/L (22-30); Chloride 97 mmol/L (98-107); Estimated CRCL calculation 31 ml/min; Estimated Glomerular Filt Rate 20; Glucose 173 mg/dL (65-110); Potassium 3.4 mmol/L (3.4-5.0); Sodium 130 mmol/L (137-145)
[2022-05-02 01:34] LABS: Hemoglobin A1C 9.1 % (<5.7)
[2022-05-02 01:44] LABS: Troponin I 0.018 ng/mL (0.000-0.034)
[2022-05-02] MEDS: POTASSIUM CHLORIDE 20 MEQ PACKET (FOR LIQUID) 40 MEQ PO (03:22)
--- NOTE | 2022-05-02 03:23 | PCRCNOTE ---
pt will not wear Hospital BIPAP/CPAP [facility] not wear at [facility]
[2022-05-02 03:40] LABS: Sodium Urine Random 32 meq/L
--- NOTE | 2022-05-02 05:07 | PC.NURSE ---
Pt admited to [facility] from er via stretcher. transferred to bed with 5 assists due to morbid obesity and nonambulatory status. Pt screaming and crying upon admission, using baby talk. room air, decreased lung sounds. Abdomen large, firm and redness noted to left side , above and below colostomy. Warm to touch edema to abd and legs Colostomy soft brown stool. Sacral area , buttock , right posterior thigh, labia, groin redness maceration , foul odor, white thick drainage in vagina noted. Bilateral heel wounds. Chen removed and new catheter inserted. Urine specimen sent. Pt refused cpap- RT talked with pt. Bedbound, turn reposition. Called nursing facility, received fax of pt meds, medical history.
[2022-05-02] MEDS: metroNIDAZOLE 500 MG/ISO 100ML 500 MG/100 ML BAG 100 MG IVPB ×3 (06:16→21:35)
[2022-05-02 07:34] LABS: Basophils Absolute Auto 0.1 K/mm3 (0.0-0.1); Basophils Percent Auto 0.4 % (0.2-1.2); Eosinophils Percent Auto 0.1 % (0-4.4); Hematocrit 43.5 % (37.0-47.0); Hemoglobin 13.4 g/dL (12.0-15.0); Immature Granulocyte Absolute 0.15 K/mm3 (0.00-0.031); Immature Granulocyte Percent A 0.6 % (0-0.5); Lymphocytes Absolute Auto 1.56 K/mm3 (0.9-3.2); Lymphocytes Percent Auto 6.6 % (18.3-44.2); Mean Corpuscular HGB Conc 30.8 g/dl (32-36); Mean Corpuscular Volume 90.8 fl (80-100); Mean Platelet Volume 11.1 fl (7.4-10.4); Monocytes Absolute Auto 1.3 K/mm3 (0.1-0.6); Monocytes Percent Auto 5.4 % (2.6-8.5); Neutrophils Absolute Auto 20.4 K/mm3 (1.3-6.7); Neutrophils Percent Auto 86.9 % (45.5-73.1); Platelet Count Result 155 k/mm3 (150-375); Red Blood Count 4.79 M/mm3 (4.2-5.4); Red Cell Distribution Width 16.5 % (11.5-14.5); White Blood Count 23.5 K/mm3 (4.5-10.0)
[2022-05-02 07:46] LABS: Lactic Acid Reflex 0.8 mmol/L (0.7-2.0)
[2022-05-02 08:14] LABS: Magnesium 2.1 mg/dL (1.6-2.3); Phosphorus 5.9 mg/dL (2.5-4.5)
[2022-05-02 08:48] LABS: Glucose Point of Care 210 mg/dl (65-105)
--- NOTE | 2022-05-02 09:00 | PM.IMPN ---
Progress Note: A&P Assessment and Plan (1) Acute and chronic respiratory failure: Qualifiers: Respiratory failure complication: hypoxia and hypercapnia Qualified Code(s): J96.21 - Acute and chronic respiratory failure with hypoxia; J96.22 - Acute and chronic respiratory failure with hypercapnia Code(s): J96.20 - Acute and chronic respiratory failure, unspecified whether with hypoxia or hypercapnia Status: Acute Assessment and Plan: Chronic Diastolic CHF Summa: Not in acute exacerbation and Appears to be compensated currently. Appreciate Pulmonary is helped with setting of noninvasive ventilator. component of OHS and CONNOR (2) CHF exacerbation: Qualifiers: Heart failure type: diastolic Qualified Code(s): I50.33 - Acute on chronic diastolic (congestive) heart failure Code(s): I50.9 - Heart failure, unspecified Status: Acute Assessment and Plan: Appears compensated. Continue home medications. (3) Uncontrolled stage 2 hypertension: Code(s): I10 - Essential (primary) hypertension Status: Acute Assessment and Plan: Continue home medication and monitor blood pressure. Today's BP have been in the 125/61-156-71 range (4) Chronic renal insufficiency: Qualifiers: Chronic kidney disease stage: stage 3 (moderate) Chronic kidney disease stage 3 subtype: stage 3b (GFR 30-44) Qualified Code(s): N18.32 - Chronic kidney disease, stage 3b Code(s): N18.9 - Chronic kidney disease, unspecified Status: Acute Assessment and Plan: Slight bump in creatinine likely from dehydration. IV fluids given Dc Lasix. Will recheck BMP. (5) Insulin dependent type 2 diabetes mellitus: Code(s): E11.9 - Type 2 diabetes mellitus without complications; Z79.4 - penitentiary (current) use of insulin Status: Acute Assessment and Plan: monitor blood sugar and adjust insulin as needed Accu-Cheks have been in the 177-264 range. (6) Pressure ulcer of right heel: Code(s): L89.619 - Pressure ulcer of right heel, unspecified stage Status: Acute Assessment and Plan: Patient has chronic bilateral heel wounds. Wound Care consult. (7) Pressure ulcer, heel, left, unstageable: Code(s): L89.620 - Pressure ulcer of left heel, unstageable Status: Acute Assessment and Plan: Continue localized wound care. Time Spent With Patient Time with patient: 15 - 25 minutes Subjective Date/time seen: 05/02/22 18:22 Interval history: Patient was seen examined at the bedside. She denies any active complaint. The she appears to be very weak and bedbound. Physical therapy was ordered. Review of Systems Review of Systems: See HPI All systems reviewed & are unremarkable except as noted in HPI and below Constitutional: Constitutional: Reports as per HPI and Reports no additional constitutional complaints Eyes: Eyes: Reports as per HPI and Reports no additional eye complaints ENT: Reports system reviewed and no additional complaints, except as documented and Reports Normal hearing present Cardiovascular: Cardiovascular: Reports no additional cardiovascular complaints Respiratory: Respiratory: Reports no additional respiratory complaints and Reports no additional respiratory complaints Gastrointestinal: Gastrointestinal: Reports as per HPI and Reports no additional gastrointestinal complaints Musculoskeletal: Musculoskeletal: Reports no additional musculoskeletal complaints Integumentary/Breasts: Skin/Breast: Reports system reviewed and no additional complaints, except as docu and Reports as per HPI Neurologic: Reports system reviewed and no additional complaints, except as documented, Reports as per HPI and Reports Normal hearing present Psychiatric: Psychiatric: Reports no additional psychiatric complaints and Reports as per HPI Endocrine: Endocrine: Reports no additional endocrine complaints
[2022-05-02] MEDS: SOD HYPOCHLORITE 1/4 STRENGTH 473 ML 1 APPLIC TOPICAL ×2 (09:57→21:36)
[2022-05-02] MEDS: POTASSIUM CHLORIDE 20 MEQ PACKET (FOR LIQUID) PO ×2 (09:59→17:35)
[2022-05-02] MEDS: INSULIN ASPART (*BKC) 100 UNITS/ML SUB-Q ×2 (09:59→13:09)
[2022-05-02] MEDS: OLANZapine 5 MG TABLET PO (09:59)
[2022-05-02 12:39] LABS: Glucose Point of Care 264 mg/dl (65-105)
[2022-05-02 17:00] LABS: Glucose Point of Care 177 mg/dl (65-105)
[2022-05-02 20:02] LABS: Anion Gap 8 mmol/L (8-16); Blood Urea Nitrogen 53 mg/dL (7-17); Calcium 7.4 mg/dL (8.4-10.2); Carbon Dioxide 24 mmol/L (22-30); Chloride 93 mmol/L (98-107); Estimated CRCL calculation 32 ml/min; Estimated Glomerular Filt Rate 21; Glucose 232 mg/dL (65-110); Potassium 3.6 mmol/L (3.4-5.0); Sodium 125 mmol/L (137-145)
[2022-05-02] MEDS: TOLNAFTATE 1% POWDER 45 GM BTL 1 APPLIC TOPICAL (20:52)
[2022-05-02] MEDS: BENZONATATE 100 MG CAPSULE PO (20:53)
[2022-05-02] MEDS: hydrALAZINE HCL 25 MG TABLET 75 MG PO (20:53)
[2022-05-02] MEDS: QUEtiapine FUMARATE XR 50 MG TAB.ER.24H 150 MG PO (20:54)
[2022-05-02] MEDS: hydrOXYzine HCL 25 MG TABLET PO (20:54)
[2022-05-02] MEDS: INSULIN GLARGINE (*BKC) 100 UNITS/ML 42 UNITS SUB-Q (21:05)
[2022-05-02] MEDS: ATORVASTATIN 40 MG TABLET PO (21:38)
[2022-05-02 21:48] LABS: Glucose Point of Care 233 mg/dl (65-105)
[2022-05-02] MEDS: ACETAMINOPHEN 325 MG TABLET 650 MG PO (22:40)
[2022-05-03] VITALS (11 sets, daily range): BP systolic 133–147; BP diastolic 63–72; PULSE 59–80; RESP 18–24; TEMP 36.5–37.1; O2SAT 95–98
[2022-05-03] MEDS: LIDOCAINE HCL 2% JELLY 5 ML TUBE 1 APPLIC TOPICAL ×3 (04:00→17:20)
[2022-05-03] MEDS: ACETAMINOPHEN 325 MG TABLET 650 MG PO ×2 (05:12→21:47)
[2022-05-03] MEDS: hydrALAZINE HCL 25 MG TABLET 75 MG PO ×3 (05:13→21:21)
[2022-05-03] MEDS: metroNIDAZOLE 500 MG/ISO 100ML 500 MG/100 ML BAG 100 MG IVPB ×3 (05:14→23:41)
[2022-05-03 06:01] LABS: Alanine Aminotransferase 15 U/L (6-35); Albumin Level 2.9 g/dL (3.5-5.1); Alkaline Phosphatase 89 U/L (38-126); Anion Gap 8 mmol/L (8-16); Aspartate Amino Transferase 27 U/L (14-36); Bilirubin,Total 0.4 mg/dL (0.2-1.3); Blood Urea Nitrogen 55 mg/dL (7-17); Calcium 7.4 mg/dL (8.4-10.2); Carbon Dioxide 26 mmol/L (22-30); Chloride 94 mmol/L (98-107); Estimated CRCL calculation 34 ml/min; Estimated Glomerular Filt Rate 22; Glucose 179 mg/dL (65-110); Potassium 3.3 mmol/L (3.4-5.0); Sodium 128 mmol/L (137-145)
[2022-05-03 09:22] LABS: Glucose Point of Care 178 mg/dl (65-105)
--- NOTE | 2022-05-03 09:28 | PM.IMPN ---
Progress Note: A&P Assessment and Plan (1) Acute and chronic respiratory failure: Qualifiers: Respiratory failure complication: hypoxia and hypercapnia Qualified Code(s): J96.21 - Acute and chronic respiratory failure with hypoxia; J96.22 - Acute and chronic respiratory failure with hypercapnia Code(s): J96.20 - Acute and chronic respiratory failure, unspecified whether with hypoxia or hypercapnia Status: Acute Assessment and Plan: Chronic Diastolic CHF Summa: Not in acute exacerbation and Appears to be compensated currently. Appreciate Pulmonary is helped with setting of noninvasive ventilator. component of OHS and CONNOR (2) CHF exacerbation: Qualifiers: Heart failure type: diastolic Qualified Code(s): I50.33 - Acute on chronic diastolic (congestive) heart failure Code(s): I50.9 - Heart failure, unspecified Status: Acute Assessment and Plan: Appears compensated. Continue home medications. (3) Uncontrolled stage 2 hypertension: Code(s): I10 - Essential (primary) hypertension Status: Acute Assessment and Plan: Continue home medication and monitor blood pressure. Today's BP have been in the 133/63-167/66. (4) Chronic renal insufficiency: Qualifiers: Chronic kidney disease stage: stage 3 (moderate) Chronic kidney disease stage 3 subtype: stage 3b (GFR 30-44) Qualified Code(s): N18.32 - Chronic kidney disease, stage 3b Code(s): N18.9 - Chronic kidney disease, unspecified Status: Acute Assessment and Plan: Slight bump in creatinine likely from dehydration. IV fluids given Dc Lasix. Will recheck BMP. (5) Insulin dependent type 2 diabetes mellitus: Code(s): E11.9 - Type 2 diabetes mellitus without complications; Z79.4 - halfway (current) use of insulin Status: Acute Assessment and Plan: monitor blood sugar and adjust insulin as needed Accu-Cheks have been in the 177-233 range. (6) Pressure ulcer of right heel: Code(s): L89.619 - Pressure ulcer of right heel, unspecified stage Status: Acute Assessment and Plan: Patient has chronic bilateral heel wounds. Wound Care consult. (7) Pressure ulcer, heel, left, unstageable: Code(s): L89.620 - Pressure ulcer of left heel, unstageable Status: Acute Assessment and Plan: Continue localized wound care. Time Spent With Patient Time with patient: 15 - 25 minutes Subjective Date/time seen: 05/03/22 09:28 Interval history: Patient was seen examined at the bedside. she is very sleepy. She denies any active complaint. The she appears to be very weak and bedbound. Vaginal area with of a lesion and foul-smelling odor. Review of Systems Review of Systems: All systems reviewed & are unremarkable except as noted in HPI and below Constitutional: Constitutional: Reports as per HPI and Reports no additional constitutional complaints Eyes: Eyes: Reports as per HPI and Reports no additional eye complaints ENT: Reports system reviewed and no additional complaints, except as documented and Reports Normal hearing present Cardiovascular: Cardiovascular: Reports no additional cardiovascular complaints Respiratory: Respiratory: Reports no additional respiratory complaints and Reports no additional respiratory complaints Gastrointestinal: Gastrointestinal: Reports as per HPI and Reports no additional gastrointestinal complaints Musculoskeletal: Musculoskeletal: Reports no additional musculoskeletal complaints Integumentary/Breasts: Skin/Breast: Reports system reviewed and no additional complaints, except as docu and Reports as per HPI Neurologic: Reports system reviewed and no additional complaints, except as documented, Reports as per HPI and Reports Normal hearing present Psychiatric: Psychiatric: Reports no additional psychiatric complaints and Reports as per HPI Endocrine: Endocrine: Reports no a
[2022-05-03] MEDS: ASPIRIN 81 MG ENTERIC TABLET PO (10:05)
[2022-05-03] MEDS: CHOLECALCIFEROL 1,000 UNITS TABLET 2000 UNITS PO (10:05)
[2022-05-03] MEDS: amLODIPine BESYLATE 5 MG TABLET 10 MG PO (10:05)
[2022-05-03] MEDS: ESCITALOPRAM OXALATE 10 MG TABLET PO (10:05)
[2022-05-03] MEDS: FERROUS SULFATE 324 MG TABLET PO ×2 (10:05→17:19)
[2022-05-03] MEDS: MULTIVITAMINS /C LUTEIN (CENTRUM SILVER) TABLET *BKC 1 TAB PO (10:05)
[2022-05-03] MEDS: ASCORBIC ACID 500 MG TABLET PO ×2 (10:05→17:19)
[2022-05-03] MEDS: GABAPENTIN 400 MG CAPSULE PO ×3 (10:05→17:19)
[2022-05-03] MEDS: metOLazone 2.5 MG TABLET PO (10:06)
[2022-05-03] MEDS: carvediloL 25 MG TABLET PO ×2 (10:06→17:19)
[2022-05-03] MEDS: SOD HYPOCHLORITE 1/4 STRENGTH 473 ML 1 APPLIC TOPICAL (10:07)
[2022-05-03] MEDS: FUROSEMIDE 40 MG TABLET PO (10:07)
[2022-05-03] MEDS: TOLNAFTATE 1% POWDER 45 GM BTL 1 APPLIC TOPICAL (10:07)
[2022-05-03] MEDS: COLLAGENASE OINT 30 GM TUBE 1 APPLIC TOPICAL (10:08)
[2022-05-03] MEDS: FLUCONAZOLE 150 MG TABLET PO (10:55)
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
[2022-05-03 12:45] LABS: Glucose Point of Care 183 mg/dl (65-105)
[2022-05-03] MEDS: INSULIN GLARGINE (*BKC) 100 UNITS/ML 42 UNITS SUB-Q ×2 (13:54→21:22)
[2022-05-03] MEDS: INSULIN ASPART (*BKC) 100 UNITS/ML 10 UNITS SUB-Q ×2 (13:55→17:42)
[2022-05-03 17:38] LABS: Glucose Point of Care 142 mg/dl (65-105)
[2022-05-03 20:41] LABS: Glucose Point of Care 131 mg/dl (65-105)
[2022-05-03] MEDS: BENZONATATE 100 MG CAPSULE PO (21:21)
[2022-05-03] MEDS: hydrOXYzine HCL 25 MG TABLET PO (21:21)
[2022-05-03] MEDS: ATORVASTATIN 40 MG TABLET PO (21:22)
[2022-05-03] MEDS: QUEtiapine FUMARATE XR 50 MG TAB.ER.24H 150 MG PO (21:24)
[2022-05-03] MEDS: OLANZapine 5 MG TABLET PO (21:25)
[2022-05-04] VITALS (12 sets, daily range): BP systolic 138–149; BP diastolic 61–74; PULSE 61–73; RESP 16–22; TEMP 36.2–37.3; O2SAT 96–100
[2022-05-04] MEDS: BENZONATATE 100 MG CAPSULE PO (05:40)
[2022-05-04] MEDS: ACETAMINOPHEN 325 MG TABLET 650 MG PO ×2 (05:40→20:22)
[2022-05-04] MEDS: metroNIDAZOLE 500 MG/ISO 100ML 500 MG/100 ML BAG 100 MG IVPB ×3 (05:40→22:13)
[2022-05-04] MEDS: hydrALAZINE HCL 25 MG TABLET 75 MG PO ×3 (05:44→22:13)
[2022-05-04] MEDS: LIDOCAINE HCL 2% JELLY 5 ML TUBE 1 APPLIC TOPICAL ×3 (05:45→18:05)
[2022-05-04] MEDS: TOLNAFTATE 1% POWDER 45 GM BTL 1 APPLIC TOPICAL ×3 (05:46→20:23)
[2022-05-04] MEDS: SOD HYPOCHLORITE 1/4 STRENGTH 473 ML 1 APPLIC TOPICAL ×3 (05:47→20:23)
[2022-05-04 06:06] LABS: Anion Gap 7 mmol/L (8-16); Blood Urea Nitrogen 62 mg/dL (7-17); Calcium 7.7 mg/dL (8.4-10.2); Carbon Dioxide 26 mmol/L (22-30); Chloride 96 mmol/L (98-107); Estimated CRCL calculation 31 ml/min; Estimated Glomerular Filt Rate 20; Glucose 132 mg/dL (65-110); Potassium 2.9 mmol/L (3.4-5.0); Sodium 129 mmol/L (137-145)
[2022-05-04] MEDS: carvediloL 25 MG TABLET PO ×2 (08:47→18:05)
[2022-05-04] MEDS: amLODIPine BESYLATE 5 MG TABLET 10 MG PO (08:48)
[2022-05-04] MEDS: FERROUS SULFATE 324 MG TABLET PO ×2 (08:48→18:05)
[2022-05-04] MEDS: CHOLECALCIFEROL 1,000 UNITS TABLET 2000 UNITS PO (08:49)
[2022-05-04] MEDS: ASCORBIC ACID 500 MG TABLET PO ×2 (08:49→18:04)
[2022-05-04] MEDS: COLLAGENASE OINT 30 GM TUBE 1 APPLIC TOPICAL (08:49)
[2022-05-04] MEDS: ESCITALOPRAM OXALATE 10 MG TABLET PO (08:49)
[2022-05-04] MEDS: FUROSEMIDE 40 MG TABLET PO (08:49)
[2022-05-04] MEDS: ASPIRIN 81 MG ENTERIC TABLET PO (08:49)
[2022-05-04] MEDS: MULTIVITAMINS /C LUTEIN (CENTRUM SILVER) TABLET *BKC 1 TAB PO (08:50)
[2022-05-04] MEDS: GABAPENTIN 400 MG CAPSULE PO ×3 (08:50→18:05)
[2022-05-04] MEDS: POTASSIUM CHLORIDE 20 MEQ PACKET (FOR LIQUID) 40 MEQ PO ×2 (08:50→18:05)
[2022-05-04 09:02] LABS: Glucose Point of Care 130 mg/dl (65-105)
[2022-05-04 12:45] LABS: Glucose Point of Care 200 mg/dl (65-105)
[2022-05-04] MEDS: INSULIN ASPART (*BKC) 100 UNITS/ML 10 UNITS SUB-Q ×2 (13:33→18:07)
--- NOTE | 2022-05-04 13:48 | PM.IMPN ---
Progress Note: A&P Assessment and Plan (1) Acute and chronic respiratory failure: Qualifiers: Respiratory failure complication: hypoxia and hypercapnia Qualified Code(s): J96.21 - Acute and chronic respiratory failure with hypoxia; J96.22 - Acute and chronic respiratory failure with hypercapnia Code(s): J96.20 - Acute and chronic respiratory failure, unspecified whether with hypoxia or hypercapnia Status: Acute Assessment and Plan: Appreciate pulmonology consultation, NIV at night (2) CHF exacerbation: Qualifiers: Heart failure type: diastolic Qualified Code(s): I50.33 - Acute on chronic diastolic (congestive) heart failure Code(s): I50.9 - Heart failure, unspecified Status: Acute Assessment and Plan: Euvolemic, continue home meds (3) Uncontrolled stage 2 hypertension: Code(s): I10 - Essential (primary) hypertension Status: Acute Assessment and Plan: Stable (4) Chronic renal insufficiency: Qualifiers: Chronic kidney disease stage: stage 3 (moderate) Chronic kidney disease stage 3 subtype: stage 3b (GFR 30-44) Qualified Code(s): N18.32 - Chronic kidney disease, stage 3b Code(s): N18.9 - Chronic kidney disease, unspecified Status: Acute Assessment and Plan: Stable (5) Insulin dependent type 2 diabetes mellitus: Code(s): E11.9 - Type 2 diabetes mellitus without complications; Z79.4 - MCFP (current) use of insulin Status: Acute Assessment and Plan: Accu-Cheks, sliding scale insulin (6) Pressure ulcer of right heel: Code(s): L89.619 - Pressure ulcer of right heel, unspecified stage Status: Acute Assessment and Plan: Wound care consult (7) Pressure ulcer, heel, left, unstageable: Code(s): L89.620 - Pressure ulcer of left heel, unstageable Status: Acute Assessment and Plan: Continue localized wound care. Plan DVT prophylaxis with SCDs GI prophylaxis not indicated Code status full code Subjective Date/time seen: 05/04/22 13:48 Interval history: No overnight events noted. No chest pain or shortness of breath. No nausea, vomiting or diarrhea. No fevers or chills. Review of Systems Review of Systems: ROS unobtainable: Yes unobtainable due to mental status Exam Narrative: General: No acute distress, alert and oriented per baseline HEENT: Atraumatic, normocephalic, mucous membranes moist CV: Regular rate and rhythm, S1, S2 Lungs: Clear to auscultation bilaterally, no rales or crackles noted, no wheezes, good air entry Abdomen: Soft, nontender, nondistended, obese Extremities: Normal to inspection Skin: No rashes noted, no lesions or wounds seen Psych: Euthymic, normal affect Objective Data Vital Signs Vital Signs: Vital Signs - 24 hr 05/03/22 17:19 05/03/22 14:00 05/03/22 16:00 Temperature 97.7 F Pulse Rate 63 62 59 L Respiratory Rate 18 Blood Pressure 133/72 Pulse Oximetry 98 Oxygen Delivery Oxygen Flow Rate 05/03/22 19:22 05/03/22 20:00 05/04/22 00:00 Temperature 97.9 F Pulse Rate 64 80 66 Respiratory Rate 22 H Blood Pressure 147/72 H Pulse Oximetry 95 Oxygen Delivery Oxygen Flow Rate 05/04/22 04:00 05/04/22 05:57 05/04/22 08:47 Temperature 97.8 F Pulse Rate 71 65 63 Respiratory Rate 22 H Blood Pressure 149/66 H Pulse Oximetry 98 Oxygen Delivery Oxygen Flow Rate 05/04/22 08:00 05/04/22 12:00 05/04/22 08:50 Temperature Pulse Rate 61 68 Respiratory Rate Blood Pressure Pulse Oximetry 98 Oxygen Delivery Nasal Cannula Oxygen Flow Rate 2 Intake/Output Intake/Output: Intake & Output 05/01/22 05/02/22 05/03/22 05/04/22 23:59 23:59 23:59 23:59 Intake Total 1650 1800 1680 730 Output Total 1027 6860 1707 Balance 1650 639 -115 -436 Meds/Results Medications: Active Medications Generic Name Dose Route Start Last Admin
[2022-05-04 17:26] LABS: Glucose Point of Care 282 mg/dl (65-105)
[2022-05-04 17:33] LABS: Vancomycin Trough 37.1 ug/mL (10.0-20.0)
[2022-05-04] MEDS: INSULIN ASPART (*BKC) 100 UNITS/ML SUB-Q (18:06)
[2022-05-04] MEDS: POTASSIUM CHLORIDE 20 MEQ TABLET 40 MEQ PO (19:47)
[2022-05-04] MEDS: OLANZapine 5 MG TABLET PO (20:24)
[2022-05-04] MEDS: QUEtiapine FUMARATE XR 50 MG TAB.ER.24H 150 MG PO (20:25)
[2022-05-04] MEDS: ATORVASTATIN 40 MG TABLET PO (20:25)
[2022-05-04] MEDS: hydrOXYzine HCL 25 MG TABLET PO (20:25)
[2022-05-04] MEDS: INSULIN GLARGINE (*BKC) 100 UNITS/ML 42 UNITS SUB-Q (20:57)
[2022-05-04 21:02] LABS: Glucose Point of Care 215 mg/dl (65-105)
[2022-05-05] VITALS (12 sets, daily range): BP systolic 132–145; BP diastolic 68–98; PULSE 62–74; RESP 12–18; TEMP 36.4–36.7; O2SAT 90–97
[2022-05-05] MEDS: LIDOCAINE HCL 2% JELLY 5 ML TUBE 1 APPLIC TOPICAL (05:00)
[2022-05-05] MEDS: metroNIDAZOLE 500 MG/ISO 100ML 500 MG/100 ML BAG 100 MG IVPB ×2 (05:00→20:58)
[2022-05-05] MEDS: hydrALAZINE HCL 25 MG TABLET 75 MG PO ×2 (05:00→20:58)
[2022-05-05 08:06] LABS: Anion Gap 6 mmol/L (8-16); Blood Urea Nitrogen 71 mg/dL (7-17); Calcium 7.9 mg/dL (8.4-10.2); Carbon Dioxide 29 mmol/L (22-30); Chloride 96 mmol/L (98-107); Estimated CRCL calculation 30 ml/min; Estimated Glomerular Filt Rate 19; Glucose 127 mg/dL (65-110); Potassium 3.6 mmol/L (3.4-5.0); Sodium 131 mmol/L (137-145)
--- NOTE | 2022-05-05 08:19 | PC.NURSE ---
Patient refusing to keep 2L of oxygen on. When dozing off patient will desaturate into the 80's.
[2022-05-05] MEDS: FUROSEMIDE 40 MG TABLET PO (08:33)
[2022-05-05] MEDS: CHOLECALCIFEROL 1,000 UNITS TABLET 2000 UNITS PO (08:33)
[2022-05-05] MEDS: MULTIVITAMINS /C LUTEIN (CENTRUM SILVER) TABLET *BKC 1 TAB PO (08:33)
[2022-05-05] MEDS: POTASSIUM CHLORIDE 20 MEQ PACKET (FOR LIQUID) 40 MEQ PO ×2 (08:33→17:52)
[2022-05-05] MEDS: carvediloL 25 MG TABLET PO ×2 (08:33→17:52)
[2022-05-05] MEDS: amLODIPine BESYLATE 5 MG TABLET 10 MG PO (08:33)
[2022-05-05] MEDS: ASCORBIC ACID 500 MG TABLET PO ×2 (08:33→17:52)
[2022-05-05] MEDS: ASPIRIN 81 MG ENTERIC TABLET PO (08:34)
[2022-05-05] MEDS: COLLAGENASE OINT 30 GM TUBE 1 APPLIC TOPICAL (08:34)
[2022-05-05] MEDS: ESCITALOPRAM OXALATE 10 MG TABLET PO (08:34)
[2022-05-05] MEDS: FERROUS SULFATE 324 MG TABLET PO ×2 (08:34→17:52)
[2022-05-05] MEDS: GABAPENTIN 400 MG CAPSULE PO ×2 (08:34→17:52)
[2022-05-05] MEDS: metOLazone 2.5 MG TABLET PO (08:34)
[2022-05-05] MEDS: TOLNAFTATE 1% POWDER 45 GM BTL 1 APPLIC TOPICAL ×2 (08:35→20:01)
[2022-05-05] MEDS: SOD HYPOCHLORITE 1/4 STRENGTH 473 ML 1 APPLIC TOPICAL ×2 (08:35→20:01)
--- NOTE | 2022-05-05 09:32 | PM.GYNPNOP ---
PRODUCTION SCHEDULER - A/P Postoperative Procedures: Procedures Operation Date: 05/05/22 14:00 <No data on this case meets the specified criteria> Time Spent With Patient Time: Total time spent is greater than 50% in coordination of care (as documented) at patient's floor/unit and/or counseling patient: Time with patient: less than 15 minutes PRODUCTION SCHEDULER- PN:Subj Post-Op Subjective Date/time seen: 05/05/22 09:32 To do biopsy of the vulva today and exam under anesthesia in the operating room. NPO and consented Interval history: No overnight events noted. No chest pain or shortness of breath. No nausea, vomiting or diarrhea. No fevers or chills. PRODUCTION SCHEDULER - PN: Obj Data Vital Signs Vital Signs: Vital Signs - 24 hr 05/04/22 12:00 05/04/22 14:00 05/04/22 18:05 Temperature 97.2 F L Pulse Rate 68 70 65 Respiratory Rate 16 Blood Pressure 138/61 Pulse Oximetry 100 Oxygen Delivery Oxygen Flow Rate 05/04/22 16:00 05/04/22 20:29 05/04/22 20:00 Temperature 99.1 F Pulse Rate 68 73 Respiratory Rate 18 Blood Pressure 138/74 Pulse Oximetry 96 96 Oxygen Delivery Nasal Cannula Oxygen Flow Rate 2 05/04/22 20:00 05/05/22 00:00 05/05/22 04:14 Temperature 97.6 F Pulse Rate 72 69 63 Respiratory Rate 18 Blood Pressure 144/68 H Pulse Oximetry 97 Oxygen Delivery Oxygen Flow Rate 05/05/22 04:00 05/05/22 08:33 Temperature Pulse Rate 62 66 Respiratory Rate Blood Pressure Pulse Oximetry Oxygen Delivery Oxygen Flow Rate Intake/Output Intake/Output: Intake & Output 05/02/22 05/03/22 05/04/22 05/05/22 23:59 23:59 23:59 23:59 Intake Total 1800 1680 1220 500 Output Total 1025 9845 2900 950 Balance 481 -001 -1680 -450 Meds/Results Medications: Active Medications Generic Name Dose Route Start Last Admin Trade Name Freq PRN Reason Stop Dose Admin Acetaminophen 650 mg 05/02/22 22:18 05/04/22 20:22 Acetaminophen 325 Mg Tablet PO 650 mg Q4H PRN Administration Mild Pain (1-3) or Fever Albuterol 2.5 mg 05/02/22 00:34 Albuterol Sulfate Neb 2.5 Mg/3 Ml Inh INHALATION Q6HRT PRN Shortness Of Breath Amlodipine Besylate 10 mg 05/03/22 09:00 05/05/22 08:33 Amlodipine Besylate 5 Mg Tablet PO 10 mg DAILY GRANT Administration Ascorbic Acid 500 mg 05/03/22 09:00 05/05/22 08:33 Ascorbic Acid 500 Mg Tablet PO 500 mg BID GRANT Administration Aspirin 81 mg 05/03/22 09:00 05/05/22 08:34 Aspirin 81 Mg Enteric Tablet PO 81 mg DAILY GRANT Administration Atorvastatin Calcium 40 mg 05/02/22 21:00 05/04/22 20:25 Atorvastatin 40 Mg Tablet PO 40 mg HS GRANT Administration Benzonatate 100 mg 05/02/22 18:18 05/04/22 05:40 Benzonatate 100 Mg Capsule PO 100 mg TID PRN Administration Cough Carvedilol 25 mg 05/03/22 08:00 05/05/22 08:33 Carvedilol 25 Mg Tablet PO 25 mg BIDWM GRANT Administration Clonidine HCl 1 patch 05/05/22 09:00 05/05/22 08:34 Clonidine 0.2 Mg/24 Hr Patch TRANSDERM Not Given Mo@0900 [facility] Collagenase 1 applic 05/03/22 09:00 05/05/22 08:34 Collagenase Oint 30 Gm Tube TOPICAL 1 applic DAILY GRANT Administration Dextrose 12.5 gm 05/02/22 00:39 Dextrose 50% 25 Gm/50 Ml Syringe IV PUSH PRN PRN Hypoglycemia Protocol Escitalopram Oxalate 10 mg 05/03/22 09:00 05/05/22 08:34 Escitalopram Oxalate 10 Mg Tablet PO 10 mg DAILY GRANT Administration Ferrous Sulfate 324 mg 05/03/22 08:00 05/05/22 08:34 Ferrous Sulfate 324 Mg Tablet PO 324 mg BIDWM GRANT Administration Furosemide 40 mg 05/03/22 09:00 05/05/22 08:33 Furosemide 40 Mg Tablet PO 40 mg DAILY GRANT Administration Gabapentin 400 mg 05/03/22 09:00 05/05/22 08:34 Gabapentin 400 Mg Capsule PO 400 mg TID GRANT Administration Glucagon 1 mg 05/02/22 00:39 Glucagon For Inj 1 Mg Vial IM PRN PRN Hypoglycemia Protocol Glucose 15 gm 05/02/22 0
--- NOTE | 2022-05-05 11:46 | PC.NURSE ---
Freight Adjuster called preop to determine what consent form is needed for procedure today. No answer.
--- NOTE | 2022-05-05 13:44 | PC.NURSE ---
Patient off of unit to surgery
--- NOTE | 2022-05-05 14:11 | WPDANESEPPF ---
Anes - Initial Pre Proc Eval Procedure: Operation Date: 05/05/22 14:00 Proposed Procedures p Marsupialization Bartholin's Cyst - R. Frankie Baron MD Date/Time: 05/05/22 14:11 Surgeon: Luke Burgos MD Pre Op Diagnosis: cellulitis/cp Patient Data Age: 51 Gender: F Height: 1.6 m Weight: 127.01 kg Last Vital Signs Temp 36.4 C 05/05/22 04:14 Pulse 66 05/05/22 12:00 Resp 18 05/05/22 04:14 BP 144/68 H 05/05/22 04:14 Pulse Ox 97 05/05/22 04:14 O2 Del Method Room Air 05/05/22 08:34 O2 Flow Rate 2 05/04/22 20:00 Allergies Allergy/AdvReac Type Severity Reaction Status Date / Time citalopram AdvReac Unknown Verified 01/17/22 12:40 [email or web address] [From Chantix] AdvReac Unknown Verified 01/17/22 12:40 Home Medications Medication Instructions Recorded Confirmed Type amlodipine 10 mg tablet 10 mg PO DAILY #30 tabs 08/09/19 05/02/22 Rx ascorbic acid (vitamin C) 500 mg 500 mg PO BID 08/03/21 05/02/22 History tablet aspirin 81 mg tablet,delayed 81 mg PO DAILY ##0 08/03/21 05/02/22 History release (Adult Low Dose Aspirin) atorvastatin 40 mg tablet 40 mg PO HS 08/03/21 05/02/22 History carvedilol 25 mg tablet 25 mg PO BID 08/03/21 05/02/22 History cholecalciferol (vitamin D3) 25 50 mcg PO DAILY 08/03/21 05/02/22 History mcg (1,000 unit) tablet clonidine 0.2 mg/24 hr weekly 1 patch transdermal WEEKLY 08/03/21 05/02/22 History transdermal patch escitalopram oxalate 10 mg tablet 10 mg PO DAILY 08/03/21 05/02/22 History hydroxyzine HCl 25 mg tablet 25 mg PO HS 08/03/21 05/02/22 History multivit with minerals-iron 18 1 tablet PO DAILY 08/03/21 05/02/22 History mg-folic ac 400 mcg-vit K 25 mcg tablet (Adults Multivitamin) olanzapine 5 mg tablet 5 mg PO HS 08/03/21 05/02/22 History quetiapine 150 mg tablet,extended 150 mg PO HS 08/03/21 05/02/22 History release 24 hr insulin lispro 100 unit/mL See Rx Instructions .Route .COMPLEX 10/02/21 05/02/22 History subcutaneous solution (Humalog U-100 Insulin) ipratropium bromide 0.02 % 0.5 mg inhalation Q6H PRN 10/02/21 05/02/22 History solution for inhalation Shortness Of Breath Or Wheezing ferrous sulfate 325 mg (65 mg 324 mg PO BIDWM #60 tabs 10/06/21 05/02/22 Rx iron) tablet tolnaftate 1 % topical powder 1 applic topical Q12HR #1 g 10/06/21 05/02/22 Rx benzonatate 100 mg capsule 100 mg PO TID PRN Cough #30 caps 11/07/21 05/02/22 Rx furosemide 40 mg tablet (Lasix) 40 mg PO DAILY #30 tabs 11/07/21 05/02/22 Rx hydralazine 25 mg tablet 75 mg PO Q8HR #30 tabs 11/07/21 05/02/22 Rx insulin glargine 100 unit/mL 42 unit (0.42 mL) subcut Q12H #10 11/07/21 05/02/22 Rx subcutaneous solution (Lantus mL U-100 Insulin) miconazole nitrate 2 % topical 1 applic topical Q12HR #1,692 grams 11/07/21 05/02/22 Rx ointment (Aloe [place] Antifungal (miconazole)) albuterol sulfate 2.5 mg/0.5 mL 5 mg inhalation Q6HRT PRN 12/03/21 05/02/22 History solution for nebulization Shortness Of Breath Or Wheezing albuterol sulfate 90 mcg/actuation 1 inh inhalation QID PRN shortness 12/07/21 05/02/22 Rx aerosol inhaler (Ventolin HFA) of breath or wheezing #8.5 grams collagenase clostridium histo. 250 1 applic topical DAILY 05/02/22 05/02/22 History unit/gram topical ointment (Santyl) gabapentin 400 mg capsule 400 mg PO TID 05/02/22 05/02/22 History insulin lispro 100 unit/mL 10 unit subcut TIDWMEAL 05/02/22 05/02/22 History subcutaneous solution (Humalog U-100 Insulin) metolazone 2.5 mg tablet 2.5 mg PO .QOD 05/02/22 05/02/22 History potassium chloride 20 mEq 20 meq PO .QOD 05/02/22 05/02/22 History tablet,extended release(part/cryst) Laboratory Tests 05/04/22 05/04/22 05/04/22 17:06 17:13 20:49 Sodium Potassium Chloride Carbon Dioxide Anion Gap BUN Creatinine Estim Creat Clear Calc Estimated GFR Glucose
--- NOTE | 2022-05-05 14:18 | WPDHPUPDATE1 ---
History and Physical Update Update Date/Time: 05/05/22 14:18 History and Physical has been reviewed, including an updated exam of the patient. There are NO changes in the patient's condition. Risks, benefits, and alternatives have been discussed and questions answered. Patient agrees to proceed with procedure.
[2022-05-05] MEDS: LACTATED RINGERS 1,000 ML 30 ML IV CONT (14:35)
--- NOTE | 2022-05-05 15:08 | W.PM.PROC2 ---
Procedure Note - Detailed Date of Procedure 05/05/22 Pre-op Diagnosis cellulitis/cp, vulvar lesion Post-op Diagnosis Same Procedure Performed vulvar biopsy x3 Surgeon Simone Baron MD Anesthesia MAC Indications vulvar lesion Findings verrucal lesion with severe induration and erythema of the underlying skin extending over the right vulva from the midpoint to the most posterior aspect of the vulva/labia majora. Very vascular tissue that bled easily. Friable tissue Description of Procedure Patient was taken the operating room. She was prepped and draped in the dorsal lithotomy position after induction of LMA anesthesia. Three vulvar biopsies were taken from the left vulva. These were from the midportion to the posterior portion of the vulva. These were done with Chamberino punch and a scalpel. the biopsies were grasped in freed with scissors. The tissue was very friable. [id number] sutures were used Over the defects in the tissue of the vulva. It was hemostatic at the end of the procedure. She was taken recovery room stable in condition. Sponge lap needle counts were correct x2. Estimated Blood Loss 5 Urine Output 200 Pathology Yes ( Three vulvar biopsies)
--- NOTE | 2022-05-05 15:31 | PM.IMPN ---
Progress Note: A&P Assessment and Plan (1) Vulvar lesion: Code(s): N90.89 - Other specified noninflammatory disorders of vulva and perineum Status: Acute Assessment and Plan: Biopsy taken today by OB, anticipate discharge home tomorrow (2) Acute and chronic respiratory failure: Qualifiers: Respiratory failure complication: hypoxia and hypercapnia Qualified Code(s): J96.21 - Acute and chronic respiratory failure with hypoxia; J96.22 - Acute and chronic respiratory failure with hypercapnia Code(s): J96.20 - Acute and chronic respiratory failure, unspecified whether with hypoxia or hypercapnia Status: Acute Assessment and Plan: Stable (3) CHF exacerbation: Qualifiers: Heart failure type: diastolic Qualified Code(s): I50.33 - Acute on chronic diastolic (congestive) heart failure Code(s): I50.9 - Heart failure, unspecified Status: Acute Assessment and Plan: Euvolemic, continue home meds (4) Uncontrolled stage 2 hypertension: Code(s): I10 - Essential (primary) hypertension Status: Acute Assessment and Plan: Stable (5) Chronic renal insufficiency: Qualifiers: Chronic kidney disease stage: stage 3 (moderate) Chronic kidney disease stage 3 subtype: stage 3b (GFR 30-44) Qualified Code(s): N18.32 - Chronic kidney disease, stage 3b Code(s): N18.9 - Chronic kidney disease, unspecified Status: Acute Assessment and Plan: Stable (6) Insulin dependent type 2 diabetes mellitus: Code(s): E11.9 - Type 2 diabetes mellitus without complications; Z79.4 - medical terminologist (current) use of insulin Status: Acute Assessment and Plan: Accu-Cheks, sliding scale insulin (7) Pressure ulcer of right heel: Code(s): L89.619 - Pressure ulcer of right heel, unspecified stage Status: Acute Assessment and Plan: Wound care consult (8) Pressure ulcer, heel, left, unstageable: Code(s): L89.620 - Pressure ulcer of left heel, unstageable Status: Acute Assessment and Plan: Continue localized wound care. Plan DVT prophylaxis with SCDs GI prophylaxis not indicated Code status full code Subjective Date/time seen: 05/05/22 15:31 Interval history: No overnight events noted. No chest pain or shortness of breath. No nausea, vomiting or diarrhea. No fevers or chills. Review of Systems Review of Systems: ROS unobtainable: Yes unobtainable due to mental status Exam Narrative: General: No acute distress, alert and oriented per baseline HEENT: Atraumatic, normocephalic, mucous membranes moist CV: Regular rate and rhythm, S1, S2 Lungs: Clear to auscultation bilaterally, no rales or crackles noted, no wheezes, good air entry Abdomen: Soft, nontender, nondistended, obese Extremities: Normal to inspection Skin: No rashes noted, no lesions or wounds seen Objective Data Vital Signs Vital Signs: Vital Signs - 24 hr 05/04/22 18:05 05/04/22 16:00 05/04/22 20:29 Temperature 99.1 F Pulse Rate 65 68 73 Respiratory Rate 18 Blood Pressure 138/74 Pulse Oximetry 96 Oxygen Delivery Oxygen Flow Rate 05/04/22 20:00 05/04/22 20:00 05/05/22 00:00 Temperature Pulse Rate 72 69 Respiratory Rate Blood Pressure Pulse Oximetry 96 Oxygen Delivery Nasal Cannula Oxygen Flow Rate 2 05/05/22 04:14 05/05/22 04:00 05/05/22 08:33 Temperature 97.6 F Pulse Rate 63 62 66 Respiratory Rate 18 Blood Pressure 144/68 H Pulse Oximetry 97 Oxygen Delivery Oxygen Flow Rate 05/05/22 08:34 05/05/22 08:00 05/05/22 12:00 Temperature Pulse Rate 64 66 Respiratory Rate Blood Pressure Pulse Oximetry Oxygen Delivery Room Air Oxygen Flow Rate 05/05/22 15:08 05/05/22 15:23 Temperature 97.8 F Pulse Rate 70 67 Respiratory Rate 13 12 Blood Pressure 145/78 H 132/98 H Pulse Oximetry 95 90 Oxygen Delivery Sim
--- NOTE | 2022-05-05 15:45 | PC.NURSE ---
Patient returned to unit from recovery
[2022-05-05 17:39] LABS: Glucose Point of Care 188 mg/dl (65-105)
[2022-05-05] MEDS: INSULIN ASPART (*BKC) 100 UNITS/ML 10 UNITS SUB-Q (18:02)
[2022-05-05] MEDS: QUEtiapine FUMARATE XR 50 MG TAB.ER.24H 150 MG PO (20:00)
[2022-05-05] MEDS: hydrOXYzine HCL 25 MG TABLET PO (20:00)
[2022-05-05] MEDS: OLANZapine 5 MG TABLET PO (20:00)
[2022-05-05] MEDS: ATORVASTATIN 40 MG TABLET PO (20:01)
[2022-05-05] MEDS: INSULIN GLARGINE (*BKC) 100 UNITS/ML 42 UNITS SUB-Q (20:01)
[2022-05-05 20:39] LABS: Glucose Point of Care 394 mg/dl (65-105)
[2022-05-06] VITALS (10 sets, daily range): BP systolic 134–148; BP diastolic 60–67; PULSE 64–75; RESP 16–18; TEMP 36.6–36.8; O2SAT 96–100
[2022-05-06] MEDS: metroNIDAZOLE 500 MG/ISO 100ML 500 MG/100 ML BAG 100 MG IVPB (05:23)
[2022-05-06] MEDS: LIDOCAINE HCL 2% JELLY 5 ML TUBE 1 APPLIC TOPICAL ×3 (05:23→17:35)
[2022-05-06] MEDS: hydrALAZINE HCL 25 MG TABLET 75 MG PO ×3 (05:23→20:47)
[2022-05-06] MEDS: ACETAMINOPHEN 325 MG TABLET 650 MG PO ×3 (05:53→17:41)
[2022-05-06 06:36] LABS: Anion Gap 8 mmol/L (8-16); Blood Urea Nitrogen 71 mg/dL (7-17); Calcium 7.9 mg/dL (8.4-10.2); Carbon Dioxide 28 mmol/L (22-30); Chloride 98 mmol/L (98-107); Estimated CRCL calculation 34 ml/min; Estimated Glomerular Filt Rate 22; Glucose 234 mg/dL (65-110); Potassium 4.3 mmol/L (3.4-5.0); Sodium 134 mmol/L (137-145)
[2022-05-06 08:33] LABS: Glucose Point of Care 247 mg/dl (65-105)
[2022-05-06] MEDS: POTASSIUM CHLORIDE 20 MEQ PACKET (FOR LIQUID) 40 MEQ PO (09:49)
[2022-05-06] MEDS: ASPIRIN 81 MG ENTERIC TABLET PO (09:50)
[2022-05-06] MEDS: FERROUS SULFATE 324 MG TABLET PO ×2 (09:50→17:34)
[2022-05-06] MEDS: ASCORBIC ACID 500 MG TABLET PO ×2 (09:50→17:34)
[2022-05-06] MEDS: GABAPENTIN 400 MG CAPSULE PO ×3 (09:50→17:35)
[2022-05-06] MEDS: carvediloL 25 MG TABLET PO ×2 (09:50→17:34)
[2022-05-06] MEDS: ESCITALOPRAM OXALATE 10 MG TABLET PO (09:50)
[2022-05-06] MEDS: MULTIVITAMINS /C LUTEIN (CENTRUM SILVER) TABLET *BKC 1 TAB PO (09:50)
[2022-05-06] MEDS: INSULIN ASPART (*BKC) 100 UNITS/ML SUB-Q ×3 (09:51→17:35)
[2022-05-06] MEDS: CHOLECALCIFEROL 1,000 UNITS TABLET 2000 UNITS PO (09:51)
[2022-05-06] MEDS: FUROSEMIDE 40 MG TABLET PO (09:51)
[2022-05-06] MEDS: amLODIPine BESYLATE 5 MG TABLET 10 MG PO (09:51)
[2022-05-06] MEDS: COLLAGENASE OINT 30 GM TUBE 1 APPLIC TOPICAL (09:52)
[2022-05-06] MEDS: INSULIN ASPART (*BKC) 100 UNITS/ML 10 UNITS SUB-Q ×3 (09:52→17:35)
[2022-05-06] MEDS: INSULIN GLARGINE (*BKC) 100 UNITS/ML 42 UNITS SUB-Q ×2 (09:52→20:55)
[2022-05-06] MEDS: SOD HYPOCHLORITE 1/4 STRENGTH 473 ML 1 APPLIC TOPICAL ×2 (09:52→21:01)
[2022-05-06] MEDS: TOLNAFTATE 1% POWDER 45 GM BTL 1 APPLIC TOPICAL ×2 (09:52→21:00)
--- NOTE | 2022-05-06 11:26 | PM.DS ---
DS: Admitting Diagnosis Discharge Date 05/06/2022 Admitting Diagnosis Chest pain with shortness of breath, vaginal discharge DS: Discharge Diagnosis Discharge Diagnosis (1) Vulvar lesion: Code(s): N90.89 - Other specified noninflammatory disorders of vulva and perineum Status: Acute (2) Acute and chronic respiratory failure: Qualifiers: Respiratory failure complication: hypoxia and hypercapnia Qualified Code(s): J96.21 - Acute and chronic respiratory failure with hypoxia; J96.22 - Acute and chronic respiratory failure with hypercapnia Code(s): J96.20 - Acute and chronic respiratory failure, unspecified whether with hypoxia or hypercapnia Status: Acute (3) CHF exacerbation: Qualifiers: Heart failure type: diastolic Qualified Code(s): I50.33 - Acute on chronic diastolic (congestive) heart failure Code(s): I50.9 - Heart failure, unspecified Status: Acute (4) Uncontrolled stage 2 hypertension: Code(s): I10 - Essential (primary) hypertension Status: Acute (5) Chronic renal insufficiency: Qualifiers: Chronic kidney disease stage: stage 3 (moderate) Chronic kidney disease stage 3 subtype: stage 3b (GFR 30-44) Qualified Code(s): N18.32 - Chronic kidney disease, stage 3b Code(s): N18.9 - Chronic kidney disease, unspecified Status: Acute (6) Insulin dependent type 2 diabetes mellitus: Code(s): E11.9 - Type 2 diabetes mellitus without complications; Z79.4 - terminal system operator (current) use of insulin Status: Acute (7) Pressure ulcer of right heel: Code(s): L89.619 - Pressure ulcer of right heel, unspecified stage Status: Acute (8) Pressure ulcer, heel, left, unstageable: Code(s): L89.620 - Pressure ulcer of left heel, unstageable Status: Acute (9) Cellulitis and abscess of buttock: Code(s): L02.31 - Cutaneous abscess of buttock; L03.317 - Cellulitis of buttock Status: Acute (10) CONNOR (obstructive sleep apnea): Code(s): G47.33 - Obstructive sleep apnea (adult) (pediatric) Status: Acute (11) COPD (chronic obstructive pulmonary disease): Code(s): J44.9 - Chronic obstructive pulmonary disease, unspecified Status: Acute DS: Summary Hospital Course Hospital Course: 51-year-old female patient who [facility] The patient has numerous complaints.? The patient stated that she had chest pain for several weeks and is getting worse.? She also states she was short of breath.? The patient stated that the chest pain was constant there was no relieving factors.? The patient complains of pain to her bottom and vagina and a foul smelling her from those areas.? The patient also has ulcerated areas to her heels.? The patient is diabetic and his psychiatric conditions.? She has mental disabilities.? The [facility] reportedly stated that the patient is noncompliant with wound care treatment.? Her white count is 20.4.? Her potassium was found to be 2.8 and her sodium 129.? CT the abdomen pelvis showed cellulitis of the sacrum and coccyx. She was started on cefepime, Flagyl and vancomycin. Troponins were negative x3. She did have some acute kidney injury thought to be prerenal. Her baseline creatinine appears to be between 1.8 and 2. She did come back down to 2.3 with supportive care. Recheck BMP in 1 week. Vulvar lesion was found concerning for malignancy. Ob Gyne was consulted and performed a vulvar biopsy. Antibiotics were de-escalated to Flagyl and cefdinir. Patient's symptoms continued to improve. Wound Care was consulted. Time Spent with Patient Time attestation: Total time spent providing and/or coordinating discharge services: DS: Data Data Completed and Pending Pending studies at discharge: Pending at discharge 05/05/22 15:00 Surgical [PTH] Routine Labs on day of discharge: Labs from last 24 hours 05/06/22 05/06/22 05/05/22 08:19 06:05 1
--- NOTE | 2022-05-06 11:43 | PM.IMPN ---
Progress Note: A&P Assessment and Plan (1) Cellulitis and abscess of buttock: Code(s): L02.31 - Cutaneous abscess of buttock; L03.317 - Cellulitis of buttock Status: Acute Assessment and Plan: 1 of 2 blood cultures, as well as the wound culture, were positive for group G Streptococcus One blood culture showed Staphylococcus epidermis, another had staphylococcal hominis, suspect contaminant Sens showed resistance to rocephin, will switch to IV doxycycline, d/c flagyl Repeat blood cultures pending (2) Vulvar lesion: Code(s): N90.89 - Other specified noninflammatory disorders of vulva and perineum Status: Acute Assessment and Plan: Biopsy taken today by OB, follow-up biopsy outpatient (3) Acute and chronic respiratory failure: Qualifiers: Respiratory failure complication: hypoxia and hypercapnia Qualified Code(s): J96.21 - Acute and chronic respiratory failure with hypoxia; J96.22 - Acute and chronic respiratory failure with hypercapnia Code(s): J96.20 - Acute and chronic respiratory failure, unspecified whether with hypoxia or hypercapnia Status: Acute Assessment and Plan: Stable (4) CHF exacerbation: Qualifiers: Heart failure type: diastolic Qualified Code(s): I50.33 - Acute on chronic diastolic (congestive) heart failure Code(s): I50.9 - Heart failure, unspecified Status: Acute Assessment and Plan: Euvolemic, continue home meds (5) Uncontrolled stage 2 hypertension: Code(s): I10 - Essential (primary) hypertension Status: Acute Assessment and Plan: Stable (6) Chronic renal insufficiency: Qualifiers: Chronic kidney disease stage: stage 3 (moderate) Chronic kidney disease stage 3 subtype: stage 3b (GFR 30-44) Qualified Code(s): N18.32 - Chronic kidney disease, stage 3b Code(s): N18.9 - Chronic kidney disease, unspecified Status: Acute Assessment and Plan: Stable, appears to have a baseline of 1.8, unsure if this is new baseline or changes need to be made to improve kidney status, nephrology consult pending (7) Insulin dependent type 2 diabetes mellitus: Code(s): E11.9 - Type 2 diabetes mellitus without complications; Z79.4 - [facility] (current) use of insulin Status: Acute Assessment and Plan: Accu-Cheks, sliding scale insulin (8) Pressure ulcer of right heel: Code(s): L89.619 - Pressure ulcer of right heel, unspecified stage Status: Acute Assessment and Plan: Wound care consult (9) Pressure ulcer, heel, left, unstageable: Code(s): L89.620 - Pressure ulcer of left heel, unstageable Status: Acute Assessment and Plan: Continue localized wound care. Plan DVT prophylaxis with SCDs GI prophylaxis not indicated Code status full code Subjective Date/time seen: 05/06/22 11:43 Interval history: No overnight events noted. No chest pain or shortness of breath. No nausea, vomiting or diarrhea. No fevers or chills. Review of Systems Review of Systems: 12 point review of systems was assessed and was negative except as noted in the HPI Exam Narrative: General: No acute distress, alert and oriented per baseline HEENT: Atraumatic, normocephalic, mucous membranes moist CV: Regular rate and rhythm, S1, S2 Lungs: Clear to auscultation bilaterally, no rales or crackles noted, no wheezes, good air entry Abdomen: Soft, nontender, nondistended Extremities: Normal to inspection Skin: No rashes noted, no lesions or wounds seen Objective Data Vital Signs Vital Signs: Vital Signs - 24 hr 05/05/22 12:00 05/05/22 15:08 05/05/22 15:23 Temperature 97.8 F Pulse Rate 66 70 67 Respiratory Rate 13 12 Blood Pressure 145/78 H 132/98 H Pulse Oximetry 95 90 Oxygen Delivery Simple Face Mask Room Air Oxygen Flow Rate 6 05/05/22 16:00 05/05/22 17:52 05/05/22 20:00 Temperature Pulse Rate 69 74 70
[2022-05-06 12:07] LABS: Basophils Absolute Auto 0.1 K/mm3 (0.0-0.1); Basophils Percent Auto 0.4 % (0.2-1.2); Eosinophils Percent Auto 0.1 % (0-4.4); Hemoglobin 13.4 g/dL (12.0-15.0); Immature Granulocyte Absolute 0.44 K/mm3 (0.00-0.031); Immature Granulocyte Percent A 2.8 % (0-0.5); Lymphocytes Absolute Auto 1.46 K/mm3 (0.9-3.2); Lymphocytes Percent Auto 9.4 % (18.3-44.2); Mean Corpuscular HGB Conc 31.2 g/dl (32-36); Mean Corpuscular Hemoglobin 27.2 pg (26-34); Mean Corpuscular Volume 87.4 fl (80-100); Mean Platelet Volume 9.5 fl (7.4-10.4); Monocytes Absolute Auto 0.8 K/mm3 (0.1-0.6); Monocytes Percent Auto 4.9 % (2.6-8.5); Neutrophils Absolute Auto 12.8 K/mm3 (1.3-6.7); Neutrophils Percent Auto 82.4 % (45.5-73.1); Platelet Count Result 344 k/mm3 (150-375); Red Blood Count 4.92 M/mm3 (4.2-5.4); White Blood Count 15.6 K/mm3 (4.5-10.0)
[2022-05-06 12:21] LABS: Glucose Point of Care 237 mg/dl (65-105)
[2022-05-06] MEDS: DOXYCYCLINE 100 MG/NS 100 ML 100 MG/100 ML BAG IVPB ×2 (13:47→20:48)
--- NOTE | 2022-05-06 16:21 | PC.NURSE ---
family member came to nurses station asking if pt was on any diet restrictions and if pt could have haitian food. RN stated pt is on a diabetic diet and should not have haitian food. Family member agreed and understood. RN then went in to pt's room and saw that family member still gave pt the haitian food.
[2022-05-06 17:26] LABS: Glucose Point of Care 221 mg/dl (65-105)
[2022-05-06 19:49] LABS: Osmolality, Urine 332 mOsm/kg (50-1200)
[2022-05-06 20:06] LABS: Glucose Point of Care 263 mg/dl (65-105)
[2022-05-06] MEDS: QUEtiapine FUMARATE XR 50 MG TAB.ER.24H 150 MG PO (20:47)
[2022-05-06] MEDS: hydrOXYzine HCL 25 MG TABLET PO (20:48)
[2022-05-06] MEDS: ATORVASTATIN 40 MG TABLET PO (20:48)
[2022-05-06] MEDS: OLANZapine 5 MG TABLET PO (20:48)
[2022-05-07] VITALS (10 sets, daily range): BP systolic 134; BP diastolic 64; PULSE 62–68; RESP 16–20; TEMP 35.9–36.6; O2SAT 91–100
[2022-05-07] MEDS: hydrALAZINE HCL 25 MG TABLET 75 MG PO ×3 (05:50→20:25)
[2022-05-07 05:52] LABS: Basophils Absolute Auto 0.2 K/mm3 (0.0-0.1); Basophils Percent Auto 1.3 % (0.2-1.2); Eosinophils Absolute Auto 0.3 K/mm3 (0-0.3); Eosinophils Percent Auto 2.5 % (0-4.4); Hematocrit 41.3 % (37.0-47.0); Immature Granulocyte Absolute 0.62 K/mm3 (0.00-0.031); Immature Granulocyte Percent A 4.6 % (0-0.5); Lymphocytes Absolute Auto 2.67 K/mm3 (0.9-3.2); Lymphocytes Percent Auto 19.8 % (18.3-44.2); Mean Corpuscular HGB Conc 31.5 g/dl (32-36); Mean Corpuscular Hemoglobin 27.1 pg (26-34); Mean Platelet Volume 9.2 fl (7.4-10.4); Monocytes Absolute Auto 1.3 K/mm3 (0.1-0.6); Monocytes Percent Auto 9.8 % (2.6-8.5); Neutrophils Absolute Auto 8.4 K/mm3 (1.3-6.7); Platelet Count Result 338 k/mm3 (150-375); Red Cell Distribution Width 15.8 % (11.5-14.5); White Blood Count 13.5 K/mm3 (4.5-10.0)
[2022-05-07 05:57] LABS: Anion Gap 11 mmol/L (8-16); Blood Urea Nitrogen 76 mg/dL (7-17); Calcium 7.9 mg/dL (8.4-10.2); Carbon Dioxide 25 mmol/L (22-30); Chloride 96 mmol/L (98-107); Estimated CRCL calculation 35 ml/min; Estimated Glomerular Filt Rate 23; Glucose 194 mg/dL (65-110); Potassium 3.8 mmol/L (3.4-5.0); Sodium 132 mmol/L (137-145)
[2022-05-07] MEDS: ACETAMINOPHEN 325 MG TABLET 650 MG PO ×2 (05:59→09:59)
[2022-05-07 08:31] LABS: Glucose Point of Care 236 mg/dl (65-105)
[2022-05-07] MEDS: MULTIVITAMINS /C LUTEIN (CENTRUM SILVER) TABLET *BKC 1 TAB PO (09:55)
[2022-05-07] MEDS: QUEtiapine FUMARATE 12.5 MG TABLET PO (09:55)
[2022-05-07] MEDS: amLODIPine BESYLATE 5 MG TABLET 10 MG PO (09:55)
[2022-05-07] MEDS: CHOLECALCIFEROL 1,000 UNITS TABLET 2000 UNITS PO (09:55)
[2022-05-07] MEDS: FERROUS SULFATE 324 MG TABLET PO ×2 (09:56→18:04)
[2022-05-07] MEDS: ASPIRIN 81 MG ENTERIC TABLET PO (09:56)
[2022-05-07] MEDS: metOLazone 2.5 MG TABLET PO (09:56)
[2022-05-07] MEDS: FUROSEMIDE 40 MG TABLET PO (09:56)
[2022-05-07] MEDS: ASCORBIC ACID 500 MG TABLET PO ×2 (09:56→18:04)
[2022-05-07] MEDS: GABAPENTIN 400 MG CAPSULE PO ×3 (09:56→18:04)
[2022-05-07] MEDS: carvediloL 25 MG TABLET PO ×2 (09:56→18:04)
[2022-05-07] MEDS: ESCITALOPRAM OXALATE 10 MG TABLET PO (09:56)
[2022-05-07] MEDS: SOD HYPOCHLORITE 1/4 STRENGTH 473 ML 1 APPLIC TOPICAL ×2 (09:57→20:24)
[2022-05-07] MEDS: DOXYCYCLINE 100 MG/NS 100 ML 100 MG/100 ML BAG IVPB ×2 (09:57→20:22)
[2022-05-07] MEDS: INSULIN ASPART (*BKC) 100 UNITS/ML 10 UNITS SUB-Q ×2 (09:58→13:11)
[2022-05-07] MEDS: INSULIN ASPART (*BKC) 100 UNITS/ML SUB-Q ×2 (09:58→13:12)
[2022-05-07] MEDS: INSULIN GLARGINE (*BKC) 100 UNITS/ML 42 UNITS SUB-Q (09:58)
[2022-05-07] MEDS: COLLAGENASE OINT 30 GM TUBE 1 APPLIC TOPICAL (09:59)
[2022-05-07] MEDS: TOLNAFTATE 1% POWDER 45 GM BTL 1 APPLIC TOPICAL ×2 (09:59→20:24)
[2022-05-07 11:40] LABS: Glucose Point of Care 205 mg/dl (65-105)
--- NOTE | 2022-05-07 16:03 | PM.IMPN ---
Progress Note: A&P Assessment and Plan (1) Cellulitis and abscess of buttock: Code(s): L02.31 - Cutaneous abscess of buttock; L03.317 - Cellulitis of buttock Status: Acute Assessment and Plan: 1 of 2 blood cultures, as well as the wound culture, were positive for group G Streptococcus One blood culture showed Staphylococcus epidermis, another had staphylococcal hominis, suspect contaminant Sens showed resistance to rocephin, will switch to IV doxycycline, d/c flagyl Repeat blood cultures No growth to date For group G Streptococcus penicillin is drug of choice. Will switch him back to Rocephin 2 g every day Group G Streptococcus grew on wound culture from both right heel as well as sacrum (2) Vulvar lesion: Code(s): N90.89 - Other specified noninflammatory disorders of vulva and perineum Status: Acute Assessment and Plan: Biopsy taken today by OB, follow-up biopsy outpatient (3) Acute and chronic respiratory failure: Qualifiers: Respiratory failure complication: hypoxia and hypercapnia Qualified Code(s): J96.21 - Acute and chronic respiratory failure with hypoxia; J96.22 - Acute and chronic respiratory failure with hypercapnia Code(s): J96.20 - Acute and chronic respiratory failure, unspecified whether with hypoxia or hypercapnia Status: Acute Assessment and Plan: Stable (4) CHF exacerbation: Qualifiers: Heart failure type: diastolic Qualified Code(s): I50.33 - Acute on chronic diastolic (congestive) heart failure Code(s): I50.9 - Heart failure, unspecified Status: Acute Assessment and Plan: Euvolemic, continue home meds (5) Uncontrolled stage 2 hypertension: Code(s): I10 - Essential (primary) hypertension Status: Acute Assessment and Plan: Stable (6) Chronic renal insufficiency: Qualifiers: Chronic kidney disease stage: stage 3 (moderate) Chronic kidney disease stage 3 subtype: stage 3b (GFR 30-44) Qualified Code(s): N18.32 - Chronic kidney disease, stage 3b Code(s): N18.9 - Chronic kidney disease, unspecified Status: Acute Assessment and Plan: Stable, appears to have a baseline of 1.8, unsure if this is new baseline or changes need to be made to improve kidney status, nephrology consult pending Creatinine stable Chronic Chen (7) Insulin dependent type 2 diabetes mellitus: Code(s): E11.9 - Type 2 diabetes mellitus without complications; Z79.4 - intermediate (current) use of insulin Status: Acute Assessment and Plan: Accu-Cheks, sliding scale insulin (8) Pressure ulcer of right heel: Code(s): L89.619 - Pressure ulcer of right heel, unspecified stage Status: Acute Assessment and Plan: Wound care consult (9) Pressure ulcer, heel, left, unstageable: Code(s): L89.620 - Pressure ulcer of left heel, unstageable Status: Acute Assessment and Plan: Continue localized wound care. Plan bed-bound longterm resident Several decubitus ulcers sacral DVT prophylaxis with SCDs GI prophylaxis not indicated Code status full code Subjective Date/time seen: 05/07/22 16:03 Interval history: chart reviewed. No overnight events reported. Complains of pain delete that no nausea vomiting abdominal pain. Review of Systems Review of Systems: All systems reviewed & are unremarkable except as noted in HPI and below Exam Narrative: General: No acute distress, alert and oriented per baseline HEENT: Atraumatic, normocephalic, mucous membranes moist CV: Regular rate and rhythm, S1, S2 Lungs: Clear to auscultation bilaterally, no rales or crackles noted, no wheezes, good air entry Abdomen: Soft, nontender, nondistended Extremities: Normal to inspection Skin: No rashes noted, no lesions or wounds seen Objective Data Vital Signs Vital Signs: Vital Signs - 24 hr 05/06/22 17:34 05/06/22 20:00 05/06/22 20:0
[2022-05-07 17:17] LABS: Glucose Point of Care 98 mg/dl (65-105)
[2022-05-07] MEDS: HYDROcodone/acetaminophen (*CRX) 5-325 MG TABLET 1 TAB PO (18:03)
[2022-05-07] MEDS: cefTRIAXone 2 GM in SODIUM CHLORIDE 0.9% IV 100 ML 200 ML IVPB (18:03)
[2022-05-07] MEDS: ATORVASTATIN 40 MG TABLET PO (20:24)
[2022-05-07] MEDS: QUEtiapine FUMARATE XR 50 MG TAB.ER.24H 150 MG PO (20:25)
[2022-05-07] MEDS: hydrOXYzine HCL 25 MG TABLET PO (20:25)
[2022-05-07] MEDS: OLANZapine 5 MG TABLET PO (20:25)
[2022-05-07 21:59] LABS: Glucose Point of Care 128 mg/dl (65-105)
[2022-05-07] MEDS: INSULIN GLARGINE (*BKC) 100 UNITS/ML 21 UNITS SUB-Q (22:01)
[2022-05-08] VITALS (11 sets, daily range): BP systolic 125–139; BP diastolic 64–80; PULSE 62–74; RESP 18; TEMP 36.3–36.6; O2SAT 90–92
[2022-05-08] MEDS: hydrALAZINE HCL 25 MG TABLET 75 MG PO ×3 (05:53→20:49)
[2022-05-08 06:00] LABS: Basophils Absolute Auto 0.2 K/mm3 (0.0-0.1); Basophils Percent Auto 1.6 % (0.2-1.2); Eosinophils Absolute Auto 0.8 K/mm3 (0-0.3); Eosinophils Percent Auto 5.4 % (0-4.4); Hematocrit 41.6 % (37.0-47.0); Hemoglobin 12.8 g/dL (12.0-15.0); Immature Granulocyte Absolute 0.72 K/mm3 (0.00-0.031); Immature Granulocyte Percent A 5.1 % (0-0.5); Lymphocytes Percent Auto 24.2 % (18.3-44.2); Mean Corpuscular HGB Conc 30.8 g/dl (32-36); Mean Corpuscular Hemoglobin 26.8 pg (26-34); Mean Platelet Volume 9.3 fl (7.4-10.4); Monocytes Absolute Auto 1.4 K/mm3 (0.1-0.6); Monocytes Percent Auto 10.2 % (2.6-8.5); Neutrophils Absolute Auto 7.5 K/mm3 (1.3-6.7); Neutrophils Percent Auto 53.5 % (45.5-73.1); Platelet Count Result 354 k/mm3 (150-375); Red Blood Count 4.78 M/mm3 (4.2-5.4); Red Cell Distribution Width 15.9 % (11.5-14.5); White Blood Count 14.1 K/mm3 (4.5-10.0)
[2022-05-08 06:13] LABS: Anion Gap 9 mmol/L (8-16); Blood Urea Nitrogen 80 mg/dL (7-17); Calcium 7.7 mg/dL (8.4-10.2); Carbon Dioxide 29 mmol/L (22-30); Chloride 96 mmol/L (98-107); Estimated CRCL calculation 34 ml/min; Estimated Glomerular Filt Rate 22; Glucose 91 mg/dL (65-110); Potassium 3.9 mmol/L (3.4-5.0); Sodium 134 mmol/L (137-145)
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
[2022-05-08 08:55] LABS: Glucose Point of Care 84 mg/dl (65-105)
[2022-05-08] MEDS: GABAPENTIN 400 MG CAPSULE PO ×3 (09:22→18:02)
[2022-05-08] MEDS: QUEtiapine FUMARATE 12.5 MG TABLET PO (09:22)
[2022-05-08] MEDS: ESCITALOPRAM OXALATE 10 MG TABLET PO (09:22)
[2022-05-08] MEDS: MULTIVITAMINS /C LUTEIN (CENTRUM SILVER) TABLET *BKC 1 TAB PO (09:22)
[2022-05-08] MEDS: CHOLECALCIFEROL 1,000 UNITS TABLET 2000 UNITS PO (09:22)
[2022-05-08] MEDS: carvediloL 25 MG TABLET PO ×2 (09:22→18:01)
[2022-05-08] MEDS: amLODIPine BESYLATE 5 MG TABLET 10 MG PO (09:23)
[2022-05-08] MEDS: ASCORBIC ACID 500 MG TABLET PO ×2 (09:23→18:02)
[2022-05-08] MEDS: FUROSEMIDE 40 MG TABLET PO (09:23)
[2022-05-08] MEDS: ASPIRIN 81 MG ENTERIC TABLET PO (09:23)
[2022-05-08] MEDS: FERROUS SULFATE 324 MG TABLET PO ×2 (09:23→18:02)
[2022-05-08] MEDS: COLLAGENASE OINT 30 GM TUBE 1 APPLIC TOPICAL (09:24)
[2022-05-08] MEDS: TOLNAFTATE 1% POWDER 45 GM BTL 1 APPLIC TOPICAL ×2 (09:25→20:50)
[2022-05-08] MEDS: HYDROcodone/acetaminophen (*CRX) 5-325 MG TABLET 1 TAB PO ×2 (09:29→18:01)
[2022-05-08] MEDS: SOD HYPOCHLORITE 1/4 STRENGTH 473 ML 1 APPLIC TOPICAL ×2 (09:43→20:50)
[2022-05-08] MEDS: DOXYCYCLINE 100 MG/NS 100 ML 100 MG/100 ML BAG IVPB (09:47)
--- NOTE | 2022-05-08 11:47 | PM.IMPN ---
Progress Note: A&P Assessment and Plan (1) Cellulitis and abscess of buttock: Code(s): L02.31 - Cutaneous abscess of buttock; L03.317 - Cellulitis of buttock Status: Acute Assessment and Plan: 1 of 2 blood cultures, as well as the wound culture, were positive for group G Streptococcus One blood culture showed Staphylococcus epidermis, another had staphylococcal hominis, suspect contaminant Sens showed resistance to rocephin, will switch to IV doxycycline, d/c flagyl Repeat blood cultures No growth to date For group G Streptococcus penicillin is drug of choice. Will switch him back to Rocephin 2 g every day Group G Streptococcus grew on wound culture from both right heel as well as sacrum. May benefit from debridement. General surgery consulted. Appreciate his recommendations. 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 (3) Acute and chronic respiratory failure: Qualifiers: Respiratory failure complication: hypoxia and hypercapnia Qualified Code(s): J96.21 - Acute and chronic respiratory failure with hypoxia; J96.22 - Acute and chronic respiratory failure with hypercapnia Code(s): J96.20 - Acute and chronic respiratory failure, unspecified whether with hypoxia or hypercapnia Status: Acute Assessment and Plan: Stable (4) CHF exacerbation: Qualifiers: Heart failure type: diastolic Qualified Code(s): I50.33 - Acute on chronic diastolic (congestive) heart failure Code(s): I50.9 - Heart failure, unspecified Status: Acute Assessment and Plan: Euvolemic, continue home meds (5) Uncontrolled stage 2 hypertension: Code(s): I10 - Essential (primary) hypertension Status: Acute Assessment and Plan: Stable (6) Chronic renal insufficiency: Qualifiers: Chronic kidney disease stage: stage 3 (moderate) Chronic kidney disease stage 3 subtype: stage 3b (GFR 30-44) Qualified Code(s): N18.32 - Chronic kidney disease, stage 3b Code(s): N18.9 - Chronic kidney disease, unspecified Status: Acute Assessment and Plan: Stable, appears to have a baseline of 1.8, unsure if this is new baseline or changes need to be made to improve kidney status, nephrology consult pending Creatinine stable Chronic Chen (7) Insulin dependent type 2 diabetes mellitus: Code(s): E11.9 - Type 2 diabetes mellitus without complications; 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 Plan bed-bound detention resident Several decubitus ulcers sacral DVT prophylaxis with SCDs GI prophylaxis not indicated Code status full code Subjective Date/time seen: 05/08/22 11:47 Interval history: no overnight events. Complains of pain. No abdominal pain nausea vomiting. General surgery note reviewed. Review of Systems Review of Systems: All systems reviewed & are unremarkable except as noted in HPI and below Exam Narrative: General: No acute distress, alert and oriented per baseline HEENT: Atraumatic, normocephalic, mucous membranes moist CV: Regular rate and rhythm, S1, S2 Lungs: Clear to auscultation bilaterally, no rales or crackles n
--- NOTE | 2022-05-08 12:29 | PM.CNNEP ---
Assessment and Plan Assessment and plan (1) CHRIS (acute kidney injury): Code(s): N17.9 - Acute kidney failure, unspecified Status: Acute Assessment and Plan: CHRIS present or is this just progression of her known CKD(?) suspect her wounds and infection issues may be causing some fluctuations creatinine has remained relatively stable since admission -- new baseline? (2) Stage 3b chronic kidney disease: Code(s): N18.32 - Chronic kidney disease, stage 3b Status: Chronic Assessment and Plan: baseline creatinine has fluctuated from 1.5 - 2.1mg/dl this has been present since at least 2019 if not longer presumably secondary to diabetes, hypertension, vascular disease, and CONNOR (3) Cellulitis and abscess of buttock: Code(s): L02.31 - Cutaneous abscess of buttock; L03.317 - Cellulitis of buttock Status: Acute Assessment and Plan: cultures noted on antibiotics (4) Vulvar lesion: Code(s): N90.89 - Other specified noninflammatory disorders of vulva and perineum Status: Acute Assessment and Plan: Senior Solutions Consultant following 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, with focal microinvasion will need outpatient follow-up (5) Pressure ulcer of right heel: Code(s): L89.619 - Pressure ulcer of right heel, unspecified stage Status: Acute Assessment and Plan: Group G Streptococcus grew on wound culture from both right heel Surgery following debridement to be done today (6) Hypertension: Code(s): I10 - Essential (primary) hypertension Status: Chronic Assessment and Plan: reasonable control at this time follow trend of hemodynamics (7) Insulin dependent type 2 diabetes mellitus: Code(s): E11.9 - Type 2 diabetes mellitus without complications; Z79.4 - vermin exterminator (current) use of insulin Status: Chronic Assessment and Plan: follow accuchecks glycemic control Will continue to follow. History of Present Illness Reason for Consult Consult date: 05/08/22 Chief Complaint Chief complaint: cellulitis/cp History of Present Illness Narrative: the patient is a 51-year-old female with a past medical history as outlined below who presented to [facility] with multiple complaints. The patient currently resides at a nursing facility secondary to her psychiatric issues and mental disability. Most of the information I have obtained is from review of the electronic medical record as well as discussion with the physician/ nurses involved in her care. As mentioned, she presented to [facility] ER with multiple complaints which range from chest pain, shortness of breath, and discomfort in her vaginal area as well as back/buttocks. It is difficult to ascertain which 1 of these symptoms was the most concerning but suffice to say that given these complaints, she was transferred to the ER for further assessment Workup and evaluation emergency room demonstrated the patient to be somewhat hypertensive with routine blood test that were significant for an elevated white blood cell count, hypokalemia, and hyponatremia. Furthermore, she was noted to have bilateral heel ulcerations in conjunction with her inflammation in her vaginal, buttocks, and sacral area. A subsequent abdominal CT scan was done which demonstrated persistent inflammation consistent with cellulitis posterior to the sacrum and coccyx as well as the suggestive of mild perirenal superficial subcutaneous phlegmon miss change without evident abscess, soft tissue gas, or underlying osteomyelitis. Given her constellation of symptoms, laboratory findings, and imaging studies, she was subsequent admitted the hospital for further evaluation and therapy. Since her admission, she has been seen in consultation by OB Gyne as well as General surgery with regard to her vaginal pain and bilateral heel ulcers. She has been maintained o
[2022-05-08 12:40] LABS: Glucose Point of Care 164 mg/dl (65-105)
[2022-05-08] MEDS: INSULIN ASPART (*BKC) 100 UNITS/ML SUB-Q ×2 (13:08→18:02)
[2022-05-08] MEDS: cefTRIAXone 2 GM in SODIUM CHLORIDE 0.9% IV 100 ML 200 ML IVPB (18:01)
[2022-05-08 18:21] LABS: Glucose Point of Care 198 mg/dl (65-105)
--- NOTE | 2022-05-08 18:51 | PM.GYNPNOP ---
FISHING VESSEL CAPTAIN - A/P Assessment and plan (1) Vulvar carcinoma: Code(s): C51.9 - Malignant neoplasm of vulva, unspecified Status: Acute Assessment and Plan: difficult to get full thickness biopsy of this tough tissue. Diagnosis in Situ. Uncertain if biopsy was an out was adequate enough. There was micro invasion. Patient needs gynecoid treatment or evaluation. Not sure if treatment is possible here given the patient's health status. Postoperative Procedures: Procedures Operation Date: 05/05/22 14:00 Actual Procedure Side Surgeon p Biospy of RIGHT Vulva x 3 Right Simone Baron MD Operation Date: 05/09/22 16:00 <No data on this case meets the specified criteria> Time Spent With Patient Time: Total time spent is greater than 50% in coordination of care (as documented) at patient's floor/unit and/or counseling patient: Time with patient: 15 - 25 minutes FISHING VESSEL CAPTAIN- PN:Subj Post-Op Subjective Date/time seen: 05/08/22 18:51 Interval history: 51-year-old female with vulvar carcinoma in Situ. Patient had limited understanding of the diagnosis. I tried to give her information on the diagnosis and treatment. Likely that she will not be treated. FISHING VESSEL CAPTAIN - PN: Obj Data Vital Signs Vital Signs: Vital Signs - 24 hr 05/07/22 21:06 05/07/22 20:00 05/07/22 20:00 Temperature 98 F Pulse Rate 64 68 64 Respiratory Rate 20 20 Blood Pressure 134/64 Pulse Oximetry 91 91 Oxygen Delivery Room Air 05/08/22 00:00 05/08/22 04:00 05/08/22 05:53 Temperature 97.8 F Pulse Rate 62 69 68 Respiratory Rate 18 Blood Pressure 139/68 Pulse Oximetry 90 Oxygen Delivery 05/08/22 09:22 05/08/22 09:45 05/08/22 09:45 Temperature Pulse Rate 68 67 Respiratory Rate Blood Pressure Pulse Oximetry Oxygen Delivery Room Air 05/08/22 12:00 05/08/22 15:14 05/08/22 18:01 Temperature 97.4 F L Pulse Rate 70 72 72 Respiratory Rate 18 Blood Pressure 138/64 Pulse Oximetry 90 Oxygen Delivery 05/08/22 16:00 Temperature Pulse Rate 70 Respiratory Rate Blood Pressure Pulse Oximetry Oxygen Delivery Intake/Output Intake/Output: Intake & Output 05/05/22 05/06/22 05/07/2229/22 23:59 23:59 23:59 23:59 Intake Total 1370 0888 539 5750 Output Total 2150 2600 4000 2700 Balance -707 -7887 -3100 -500 Meds/Results Medications: Active Medications Generic Name Dose Route Start Last Admin Trade Name Freq PRN Reason Stop Dose Admin Acetaminophen 650 mg 05/02/22 22:18 05/07/22 09:59 Acetaminophen 325 Mg Tablet PO 650 mg Q4H PRN Administration Mild Pain (1-3) or Fever Hydrocodone Bitart/Acetaminophen 1 tab 05/07/22 16:34 05/08/22 18:01 Hydrocodone/Acetaminophen (*Crx) 5-325 Mg Tablet PO 1 tab Q4H PRN Administration Pain Rated 4-6 Albuterol 2.5 mg 05/02/22 00:34 Albuterol Sulfate Neb 2.5 Mg/3 Ml Inh INHALATION Q6HRT PRN Shortness Of Breath Amlodipine Besylate 10 mg 05/03/22 09:00 05/08/22 09:23 Amlodipine Besylate 5 Mg Tablet PO 10 mg DAILY GRANT Administration Ascorbic Acid 500 mg 05/03/22 09:00 05/08/22 18:02 Ascorbic Acid 500 Mg Tablet PO 500 mg BID GRANT Administration Aspirin 81 mg 05/03/22 09:00 05/08/22 09:23 Aspirin 81 Mg Enteric Tablet PO 81 mg DAILY GRANT Administration Atorvastatin Calcium 40 mg 05/02/22 21:00 05/07/22 20:24 Atorvastatin 40 Mg Tablet PO 40 mg HS GRANT Administration Benzonatate 100 mg 05/02/22 18:18 05/04/22 05:40 Benzonatate 100 Mg Capsule PO 100 mg TID PRN Administration Cough Carvedilol 25 mg 05/03/22 08:00 05/08/22 18:01 Carvedilol 25 Mg Tablet PO 25 mg BIDWM GRANT Administration Clonidine HCl 1 patch 05/05/22 09:00 05/05/22 08:34 Clonidine 0.2 Mg/24 Hr Patch TRANSDERM Not Given Mo@0900 [facility] Collagenase 1 applic 05/03/22 09:00 05/08/22 09:24 Collagenase Oint 30 Gm Tube TOPICAL 1 applic DAILY [facility] Ad
[2022-05-08] MEDS: OLANZapine 5 MG TABLET PO (20:49)
[2022-05-08] MEDS: QUEtiapine FUMARATE XR 50 MG TAB.ER.24H 150 MG PO (20:49)
[2022-05-08] MEDS: hydrOXYzine HCL 25 MG TABLET PO (20:50)
[2022-05-08] MEDS: ATORVASTATIN 40 MG TABLET PO (20:50)
[2022-05-08] MEDS: INSULIN GLARGINE (*BKC) 100 UNITS/ML 20 UNITS SUB-Q (20:54)
[2022-05-08 20:58] LABS: Glucose Point of Care 192 mg/dl (65-105)
[2022-05-09] VITALS (16 sets, daily range): BP systolic 143–174; BP diastolic 64–86; PULSE 64–75; RESP 12–22; TEMP 36–36.8; O2SAT 91–100
[2022-05-09] MEDS: HYDROcodone/acetaminophen (*CRX) 5-325 MG TABLET 1 TAB PO ×3 (01:46→21:35)
[2022-05-09 05:58] LABS: Anion Gap 6 mmol/L (8-16); Blood Urea Nitrogen 83 mg/dL (7-17); Calcium 7.7 mg/dL (8.4-10.2); Carbon Dioxide 31 mmol/L (22-30); Chloride 93 mmol/L (98-107); Estimated CRCL calculation 35 ml/min; Estimated Glomerular Filt Rate 23; Glucose 150 mg/dL (65-110); Magnesium 1.9 mg/dL (1.6-2.3); Potassium 3.5 mmol/L (3.4-5.0); Sodium 130 mmol/L (137-145)
[2022-05-09] MEDS: hydrALAZINE HCL 25 MG TABLET 75 MG PO ×2 (05:58→21:28)
[2022-05-09 09:37] LABS: Glucose Point of Care 172 mg/dl (65-105)
[2022-05-09] MEDS: TOLNAFTATE 1% POWDER 45 GM BTL 1 APPLIC TOPICAL ×2 (10:11→21:30)
[2022-05-09] MEDS: COLLAGENASE OINT 30 GM TUBE 1 APPLIC TOPICAL (10:11)
--- NOTE | 2022-05-09 11:39 | PM.PNNEP ---
Progress Note: A&P Assessment and Plan (1) CHRIS (acute kidney injury): Code(s): N17.9 - Acute kidney failure, unspecified Status: Acute Assessment and Plan: CHRIS present or is this just progression of her known CKD(?) suspect more the latter suspect her wounds and infection issues may be causing some fluctuations creatinine has remained relatively stable since admission -- new baseline? (2) Stage 3b chronic kidney disease: Code(s): N18.32 - Chronic kidney disease, stage 3b Status: Chronic Assessment and Plan: baseline creatinine has fluctuated from 1.5 - 2.1mg/dl this has been present since at least 2019 if not longer presumably secondary to diabetes, hypertension, vascular disease, and CONNOR (3) Cellulitis and abscess of buttock: Code(s): L02.31 - Cutaneous abscess of buttock; L03.317 - Cellulitis of buttock Status: Acute Assessment and Plan: cultures noted on antibiotics (4) Vulvar lesion: Code(s): N90.89 - Other specified noninflammatory disorders of vulva and perineum Status: Acute Assessment and Plan: Rn Liaison following 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, with focal microinvasion will need outpatient follow-up (5) Pressure ulcer of right heel: Code(s): L89.619 - Pressure ulcer of right heel, unspecified stage Status: Acute Assessment and Plan: Group G Streptococcus grew on wound culture from both right heel Surgery following debridement to be done today (6) Hypertension: Code(s): I10 - Essential (primary) hypertension Status: Chronic Assessment and Plan: reasonable control at this time follow trend of hemodynamics (7) Insulin dependent type 2 diabetes mellitus: Code(s): E11.9 - Type 2 diabetes mellitus without complications; Z79.4 - senior living (current) use of insulin Status: Chronic Assessment and Plan: follow accuchecks glycemic control Will continue to follow. Subjective Date/time seen: 05/09/22 11:39 No apparent distress noted at the time of my visit; asking me for water but she is NPO for planned debridement of her heel ulcer; no other acute issues/events voiced overnight or earlier this morning. Exam Narrative: General: WD/WN female in NAD Heart: normal S1 and S2; no rub Lungs: clear to auscultation Abdomen: soft, nontender, nondistended, positive bowel sounds Extremities: no cyanosis or clubbing; no edema Skin: bilateral heel ulcers noted Objective Data Vital Signs Vital Signs: Vital Signs Temp Pulse Resp BP Pulse Ox O2 Del Method O2 Flow Rate 05/09/22 11:00 70 05/09/22 08:00 72 05/09/22 16:28 66 16 174/84 H 93 Room Air 05/09/22 16:10 67 12 167/86 H 91 Room Air 05/09/22 15:54 97.1 F L 64 20 145/73 H 97 Simple Face Mask 6 05/09/22 14:28 96.8 F L 69 16 149/78 H 95 Room Air 05/09/22 04:00 74 05/09/22 04:10 97.3 F L 74 20 148/64 H 98 05/09/22 00:00 72 05/08/22 20:00 74 18 92 Room Air 05/08/22 20:24 97.6 F 74 18 125/80 92 05/08/22 20:00 70 05/08/22 18:01 72 Intake/Output Intake/Output: Intake & Output 05/06/22 05/07/22 05/08/22 05/09/22 23:59 23:59 23:59 23:59 Intake Total 0654 968 2223 580 Output Total 2600 4000 2700 2925 Balance -1090 -7145 40 -9410 Meds/Results Medications: Active Medications Generic Name Dose Route Start Last Admin Trade Name Freq PRN Reason Stop Dose Admin Acetaminophen 650 mg 05/02/22 22:18 05/07/22 09:59 Acetaminophen 325 Mg Tablet PO 650 mg Q4H PRN Administration Mild Pain (1-3) or Fever Hydrocodone Bitart/Acetaminophen 1 tab 05/07/22 16:34 05/09/22 05:58 Hydrocodone/Acetaminophen (*Crx) 5-325 Mg Tablet PO 1 tab Q4H PRN Administration Pain Rated 4-6 Albuterol 2.5 mg 05/02/22 00:34 Albuterol Sulfate Neb 2.
--- NOTE | 2022-05-09 11:39 | P.PNNP_ITS ---
Progress Note: A&P Assessment and Plan (1) CHRIS (acute kidney injury): Code(s): N17.9 - Acute kidney failure, unspecified Status: Acute Assessment and Plan: * CHRIS present or is this just progression of her known CKD(?) * suspect more the latter * suspect her wounds and infection issues may be causing some fluctuations * creatinine has remained relatively stable since admission -- new baseline? (2) Stage 3b chronic kidney disease: Code(s): N18.32 - Chronic kidney disease, stage 3b Status: Chronic Assessment and Plan: * baseline creatinine has fluctuated from 1.5 - 2.1mg/dl * this has been present since at least 2019 if not longer * presumably secondary to diabetes, hypertension, vascular disease, and CONNOR (3) Cellulitis and abscess of buttock: Code(s): L02.31 - Cutaneous abscess of buttock; L03.317 - Cellulitis of buttock Status: Acute Assessment and Plan: * cultures noted * on antibiotics (4) Vulvar lesion: Code(s): N90.89 - Other specified noninflammatory disorders of vulva and perineum Status: Acute Assessment and Plan: * Database Analyst following * 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, with focal microinvasion * will need outpatient follow-up (5) Pressure ulcer of right heel: Code(s): L89.619 - Pressure ulcer of right heel, unspecified stage Status: Acute Assessment and Plan: * Group G Streptococcus grew on wound culture from both right heel * Surgery following * debridement to be done today (6) Hypertension: Code(s): I10 - Essential (primary) hypertension Status: Chronic Assessment and Plan: * reasonable control at this time * follow trend of hemodynamics (7) Insulin dependent type 2 diabetes mellitus: Code(s): E11.9 - Type 2 diabetes mellitus without complications; Z79.4 - assisted (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 Subjective Date/time seen: 05/09/22 11:39 No apparent distress noted at the time of my visit; asking me for water but she is NPO for planned debridement of her heel ulcer; no other acute issues/events voiced overnight or earlier this morning. Exam Narrative: General: WD/WN female in NAD Heart: normal S1 and S2; no rub Lungs: clear to auscultation Abdomen: soft, nontender, nondistended, positive bowel sounds Extremities: no cyanosis or clubbing; no edema Skin: bilateral heel ulcers noted Objective Data Vital Signs Vital Signs: Vital Signs Temp Pulse Resp BP Pulse Ox O2 Del Method O2 Flow Rate 05/09/22 11:00 70 05/09/22 08:00 72 05/09/22 16:28 66 16 174/84 H 93 Room Air 05/09/22 16:10 67 12 167/86 H 91 Room Air 05/09/22 15:54 97.1 F L 64 20 145/73 H 97 Simple Face Mask 6 05/09/22 14:28 96.8 F L 69 16 149/78 H 95 Room Air 05/09/22 04:00 74 05/09/22 04:10 97.3 F L 74 20 148/64 H 98 05/09/22 00:00 72 05/08/22 20:00 74 18 92 Room Air 05/08/22 20:24 97.6 F 74 18 125/80 92 05/08/22 20:00 70 05/08/22 18:01 72 Intake/Output Intake/Output: Intake & Output
[2022-05-09 12:14] LABS: Glucose Point of Care 138 mg/dl (65-105)
[2022-05-09] MEDS: SOD HYPOCHLORITE 1/4 STRENGTH 473 ML 1 APPLIC TOPICAL ×2 (12:36→21:29)
--- NOTE | 2022-05-09 12:59 | PCNFU ---
Nutrition Follow-Up Complete: Increased nutrient needs related to altered skin integrity as evidenced by mulitiple areas of skin breakdown Goal: Meet nutritional needs to support wound healing - Goal being met Pt current nutrition is NPO for testing today. Previous heart healthy, 100% intakes all meals. Casimiro BID, compact BID for wounds. Nutrition recommendation: Advance back to PO when medically able. Continue current diet and supplements when advanced Last recorded weight is 127.01 kg. Bowel Motility: +1 BM 05/09/22 Labs Reviewed: Alb 130, BUN 83, Cr 2.2, Glu 138-198 Meds Noted: [place]; carvedilol, Lasix, novolog, lantus Skin: Multiple areas of skin breakdown. Additional Notes: Pt's family brought in some food per the RN reports. Even though the RN said she was not supposed to have it because she's on a diabetic diet. Monitor intake, wt, labs, skin. Follow up in 7 days.
[2022-05-09] MEDS: LIDOCAINE HCL 2% JELLY 5 ML TUBE 1 APPLIC TOPICAL (13:32)
[2022-05-09] MEDS: LACTATED RINGERS 1,000 ML 30 ML IV CONT (14:00)
--- NOTE | 2022-05-09 14:28 | SUR.PREOP ---
1400- PT BROUGHT DOWN FROM [address] [place] [address]. PT STATED PAIN 12/18. FLUSHED PIV AND INFILTRATED. PT STATED VERY PAINFUL. PIV SITE RED. PIV DC'ED. CALLED [facility] TO PLACE PIV WITH ULTRASOUND. SPOKE WITH DR. BNEJAMIN AND HE STATED PT CAN HAVE FENTANYL 25 MCG AT A TIME X 2.
[2022-05-09] MEDS: fentaNYL CITRATE INJ (*CRX) 100 MCG/2 ML VIAL 25 MCG IV PUSH ×2 (14:32→14:43)
--- NOTE | 2022-05-09 14:41 | WPDANESEPPF ---
Anes - Initial Pre Proc Eval Procedure: Operation Date: 05/05/22 14:00 Proposed Procedures p Marsupialization Bartholin's Cyst - Simone Baron MD Operation Date: 05/09/22 16:00 Proposed Procedures p Debridement Decubitus Ulcer Right Heel - Surinder Dias MD Date/Time: 05/09/22 14:41 Surgeon: Melvin Rao MD Pre Op Diagnosis: cellulitis/cp Patient Data Age: 51 Gender: F Height: 1.6 m Weight: 127.01 kg Last Vital Signs Temp 96.8 F L 05/09/22 14:28 Pulse 69 05/09/22 14:28 Resp 16 05/09/22 14:28 BP 149/78 H 05/09/22 14:28 Pulse Ox 95 05/09/22 14:28 O2 Del Method Room Air 05/09/22 14:28 O2 Flow Rate 6 05/05/22 15:08 Allergies Allergy/AdvReac Type Severity Reaction Status Date / Time citalopram AdvReac Unknown Verified 01/17/22 12:40 [email or web address] [From Chantix] AdvReac Unknown Verified 01/17/22 12:40 Home Medications Medication Instructions Recorded Confirmed Type amlodipine 10 mg tablet 10 mg PO DAILY #30 tabs 08/09/19 05/02/22 Rx ascorbic acid (vitamin C) 500 mg 500 mg PO BID 08/03/21 05/02/22 History tablet aspirin 81 mg tablet,delayed 81 mg PO DAILY ##0 08/03/21 05/02/22 History release (Adult Low Dose Aspirin) atorvastatin 40 mg tablet 40 mg PO HS 08/03/21 05/02/22 History carvedilol 25 mg tablet 25 mg PO BID 08/03/21 05/02/22 History cholecalciferol (vitamin D3) 25 50 mcg PO DAILY 08/03/21 05/02/22 History mcg (1,000 unit) tablet clonidine 0.2 mg/24 hr weekly 1 patch transdermal WEEKLY 08/03/21 05/02/22 History transdermal patch escitalopram oxalate 10 mg tablet 10 mg PO DAILY 08/03/21 05/02/22 History hydroxyzine HCl 25 mg tablet 25 mg PO HS 08/03/21 05/02/22 History multivit with minerals-iron 18 1 tablet PO DAILY 08/03/21 05/02/22 History mg-folic ac 400 mcg-vit K 25 mcg tablet (Adults Multivitamin) olanzapine 5 mg tablet 5 mg PO HS 08/03/21 05/02/22 History quetiapine 150 mg tablet,extended 150 mg PO HS 08/03/21 05/02/22 History release 24 hr insulin lispro 100 unit/mL See Rx Instructions .Route .COMPLEX 10/02/21 05/02/22 History subcutaneous solution (Humalog U-100 Insulin) ipratropium bromide 0.02 % 0.5 mg inhalation Q6H PRN 10/02/21 05/02/22 History solution for inhalation Shortness Of Breath Or Wheezing ferrous sulfate 325 mg (65 mg 324 mg PO BIDWM #60 tabs 10/06/21 05/02/22 Rx iron) tablet tolnaftate 1 % topical powder 1 applic topical Q12HR #1 g 10/06/21 05/02/22 Rx benzonatate 100 mg capsule 100 mg PO TID PRN Cough #30 caps 11/07/21 05/02/22 Rx furosemide 40 mg tablet (Lasix) 40 mg PO DAILY #30 tabs 11/07/21 05/02/22 Rx hydralazine 25 mg tablet 75 mg PO Q8HR #30 tabs 11/07/21 05/02/22 Rx insulin glargine 100 unit/mL 42 unit (0.42 mL) subcut Q12H #10 11/07/21 05/02/22 Rx subcutaneous solution (Lantus mL U-100 Insulin) miconazole nitrate 2 % topical 1 applic topical Q12HR #1,692 grams 11/07/21 05/02/22 Rx ointment (Aloe [place] Antifungal (miconazole)) albuterol sulfate 2.5 mg/0.5 mL 5 mg inhalation Q6HRT PRN 12/03/21 05/02/22 History solution for nebulization Shortness Of Breath Or Wheezing albuterol sulfate 90 mcg/actuation 1 inh inhalation QID PRN shortness 12/07/21 05/02/22 Rx aerosol inhaler (Ventolin HFA) of breath or wheezing #8.5 grams collagenase clostridium histo. 250 1 applic topical DAILY 05/02/22 05/02/22 History unit/gram topical ointment (Santyl) gabapentin 400 mg capsule 400 mg PO TID 05/02/22 05/02/22 History insulin lispro 100 unit/mL 10 unit subcut TIDWMEAL 05/02/22 05/02/22 History subcutaneous solution (Humalog U-100 Insulin) metolazone 2.5 mg tablet 2.5 mg PO .QOD 05/02/22 05/02/22 History potassium chloride 20 mEq 20 meq PO .QOD 05/02/22 05/02/22 History tablet,extended release(part/cryst) Laboratory Tests 05/08/22 05/08/22 05/09/22 18:00 20:48 05:38 Sodium 130 mmol/L L mmol/L (137-145) Potassium 3.5 mmol/L mmol/L (3.4-5.0) Chloride
[2022-05-09] MEDS: ceFAZolin 3 GM/D5W 100 ML 100 ML IVPB (15:06)
--- NOTE | 2022-05-09 15:55 | P.OP_ITS ---
Procedure Note - Detailed Date of Procedure 05/09/22 Pre-op Diagnosis Necrotic decubitus ulcer right heel Post-op Diagnosis Same Procedure Performed Excisional debridement skin subcutaneous and muscle right heel 5 cm x 6 cm down to bone. Surgeon Surinder Dias MD Composing Machine Operator Celso BROWNE Anesthesia General (LMA) Indications Patient has a foul-smelling black and soft eschar over her right heel due to pressure injury. She is taken to surgery now for excision all debridement Findings There was a large area of foul-smelling tissue that I debrided down to bone of the right heel. Measurements were as above. The depth was about 6 mm. Description of Procedure The patient was taken to surgery and induced into anesthesia with general per LMA. She was placed in left lateral position so that the right heel was exposed. Prep and drape was carried out. Although the eschar was mobile it was very foul smelling. I debrided this and all the tissue down to the calcaneus. There was not much in the way of undermining of the skin surrounding the decubitus ulcer. I did excise all of the tissue. I measured the defect and it was 5 x 6 cm with a depth of 6-7 mm. After debridement, I did use some cautery and hemostasis was adequate. We dressed the wound with Xeroform gauze fluffs ABD and Kerlix wrap. The waffle boots were then replaced. Estimated Blood Loss -5 Urine Output 750 Drains No Packing No Pathology None sent Complications No immediate complications Condition Stable Disposition PACU [facility] Billing Surgery - Charge Forward: Surgery Billing (Excisional debridement 5 x 6 cm with depth of 6-7 mm. This was of the right heel.)
[2022-05-09 17:46] LABS: Glucose Point of Care 171 mg/dl (65-105)
[2022-05-09] MEDS: carvediloL 25 MG TABLET PO (18:02)
[2022-05-09] MEDS: FERROUS SULFATE 324 MG TABLET PO (18:02)
[2022-05-09] MEDS: GABAPENTIN 400 MG CAPSULE PO (18:02)
[2022-05-09] MEDS: ASCORBIC ACID 500 MG TABLET PO (18:02)
[2022-05-09] MEDS: cefTRIAXone 2 GM in SODIUM CHLORIDE 0.9% IV 100 ML 200 ML IVPB (18:04)
--- NOTE | 2022-05-09 18:28 | PM.IMPN ---
Progress Note: A&P Assessment and Plan (1) Cellulitis and abscess of buttock: Code(s): L02.31 - Cutaneous abscess of buttock; L03.317 - Cellulitis of buttock Status: Acute Assessment and Plan: 1 of 2 blood cultures, as well as the wound culture, were positive for group G Streptococcus One blood culture showed Staphylococcus epidermis, another had staphylococcal hominis, suspect contaminant Sens showed resistance to rocephin, will switch to IV doxycycline, d/c flagyl Repeat blood cultures No growth to date For group G Streptococcus penicillin is drug of choice. Will switch him back to Rocephin 2 g every day Group G Streptococcus grew on wound culture from both right heel as well as sacrum. Underwent debridement of right heel 05/09/2022 General surgery consulted. Appreciate his recommendations. 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 (3) Acute and chronic respiratory failure: Qualifiers: Respiratory failure complication: hypoxia and hypercapnia Qualified Code(s): J96.21 - Acute and chronic respiratory failure with hypoxia; J96.22 - Acute and chronic respiratory failure with hypercapnia Code(s): J96.20 - Acute and chronic respiratory failure, unspecified whether with hypoxia or hypercapnia Status: Acute Assessment and Plan: Stable (4) CHF exacerbation: Qualifiers: Heart failure type: diastolic Qualified Code(s): I50.33 - Acute on chronic diastolic (congestive) heart failure Code(s): I50.9 - Heart failure, unspecified Status: Acute Assessment and Plan: Euvolemic, continue home meds (5) Uncontrolled stage 2 hypertension: Code(s): I10 - Essential (primary) hypertension Status: Acute Assessment and Plan: Stable (6) Chronic renal insufficiency: Qualifiers: Chronic kidney disease stage: stage 3 (moderate) Chronic kidney disease stage 3 subtype: stage 3b (GFR 30-44) Qualified Code(s): N18.32 - Chronic kidney disease, stage 3b Code(s): N18.9 - Chronic kidney disease, unspecified Status: Acute Assessment and Plan: Stable, appears to have a baseline of 1.8, unsure if this is new baseline or changes need to be made to improve kidney status, nephrology consult recommendation appreciated Creatinine stable Chronic Chen (7) Insulin dependent type 2 diabetes mellitus: Code(s): E11.9 - Type 2 diabetes mellitus without complications; Z79.4 - long term (current) use of insulin Status: Chronic Assessment and Plan: Accu-Cheks, sliding scale insulin (8) Pressure ulcer of right heel: Code(s): L89.619 - Pressure ulcer of right heel, unspecified stage Status: Acute Assessment and Plan: Wound care consult General surgery consulted for possible debridement need due to group G streptococcal infection leading to bacteremia (9) Pressure ulcer, heel, left, unstageable: Code(s): L89.620 - Pressure ulcer of left heel, unstageable Status: Acute Assessment and Plan: Continue localized wound care. Plan bed-bound care home resident Several decubitus ulcers sacral DVT prophylaxis with SCDs GI prophylaxis not indicated Code status full code Subjective Date/time seen: 05/09/22 18:28 Interval history: No overnight events. Denies any new complaints. Going further debridement today. Seen earlier today. Review of Systems Review of Systems: All systems reviewed & are unremarkable except as noted in HPI and below Exam Narrative: General: No acute distress, alert and oriented per baseline HEENT: Atraumatic, normocephalic, mucous membranes moist CV: Regular rate and rhythm, S1, S2 Lungs: Clear to auscultation bilat
[2022-05-09] MEDS: INSULIN ASPART (*BKC) 100 UNITS/ML SUB-Q (18:51)
[2022-05-09] MEDS: QUEtiapine FUMARATE XR 50 MG TAB.ER.24H 150 MG PO (21:28)
[2022-05-09] MEDS: ATORVASTATIN 40 MG TABLET PO (21:29)
[2022-05-09] MEDS: hydrOXYzine HCL 25 MG TABLET PO (21:29)
[2022-05-09] MEDS: OLANZapine 5 MG TABLET PO (21:29)
[2022-05-09] MEDS: INSULIN GLARGINE (*BKC) 100 UNITS/ML 20 UNITS SUB-Q (21:36)
[2022-05-09 21:42] LABS: Glucose Point of Care 340 mg/dl (65-105)
[2022-05-10] VITALS (12 sets, daily range): BP systolic 138–152; BP diastolic 61–77; PULSE 68–84; RESP 20–22; TEMP 36.6–36.8; O2SAT 91–98
[2022-05-10] MEDS: LIDOCAINE HCL 2% JELLY 5 ML TUBE 1 APPLIC TOPICAL ×3 (00:53→19:19)
[2022-05-10] MEDS: hydrALAZINE HCL 25 MG TABLET 75 MG PO ×3 (06:53→21:03)
--- NOTE | 2022-05-10 06:58 | WPDANESPN ---
Anes - Prog Note Post-Op Date/Time: 05/10/22 06:58 Cardiovascular status: normal Respiratory status: normal Airway patency: baseline Mental status: baseline Post-Op hydration status: normal Vital Signs: Last Vital Signs Temp 98 F 05/10/22 06:37 Pulse 73 05/10/22 06:37 Resp 22 H 05/10/22 06:37 BP 138/77 05/10/22 06:37 Pulse Ox 98 05/10/22 06:37 O2 Del Method Room Air 05/09/22 21:00 O2 Flow Rate 6 05/09/22 15:54 Pain Score (VAS): 0/10 I/O: Intake & Output 05/09/22 05/09/22 05/10/22 15:59 23:59 07:59 Intake Total 100 730 Output Total 825 1200 700 Balance -725 -470 -700 Laboratory Tests 05/08/22 05:48 05/09/22 05:38 05/09/22 05/09/22 05/09/22 09:08 12:10 17:43 POC Capillary Glucose 172 H 138 H 171 H 05/09/22 21:16 POC Capillary Glucose 340 H Post-procedural complaints: none Patient Feedback: Patient satisfied with anesthetic care.
[2022-05-10 07:34] LABS: Basophils Absolute Auto 0.1 K/mm3 (0.0-0.1); Basophils Percent Auto 0.6 % (0.2-1.2); Eosinophils Percent Auto 0.1 % (0-4.4); Hematocrit 44.9 % (37.0-47.0); Hemoglobin 13.7 g/dL (12.0-15.0); Immature Granulocyte Absolute 0.48 K/mm3 (0.00-0.031); Immature Granulocyte Percent A 4.8 % (0-0.5); Lymphocytes Absolute Auto 1.18 K/mm3 (0.9-3.2); Lymphocytes Percent Auto 11.7 % (18.3-44.2); Mean Corpuscular HGB Conc 30.5 g/dl (32-36); Mean Corpuscular Hemoglobin 26.9 pg (26-34); Mean Corpuscular Volume 88.2 fl (80-100); Mean Platelet Volume 9.6 fl (7.4-10.4); Monocytes Absolute Auto 0.4 K/mm3 (0.1-0.6); Monocytes Percent Auto 4.2 % (2.6-8.5); Neutrophils Absolute Auto 7.9 K/mm3 (1.3-6.7); Neutrophils Percent Auto 78.6 % (45.5-73.1); Platelet Count Result 344 k/mm3 (150-375); Red Blood Count 5.09 M/mm3 (4.2-5.4); Red Cell Distribution Width 15.9 % (11.5-14.5); White Blood Count 10.1 K/mm3 (4.5-10.0)
[2022-05-10 07:46] LABS: Anion Gap 10 mmol/L (8-16); Blood Urea Nitrogen 76 mg/dL (7-17); Calcium 8.3 mg/dL (8.4-10.2); Carbon Dioxide 30 mmol/L (22-30); Chloride 95 mmol/L (98-107); Estimated CRCL calculation 37 ml/min; Estimated Glomerular Filt Rate 25; Glucose 256 mg/dL (65-110); Potassium 4.4 mmol/L (3.4-5.0); Sodium 135 mmol/L (137-145)
[2022-05-10] MEDS: HYDROcodone/acetaminophen (*CRX) 5-325 MG TABLET 1 TAB PO ×2 (08:41→15:43)
[2022-05-10] MEDS: amLODIPine BESYLATE 5 MG TABLET 10 MG PO (08:42)
[2022-05-10] MEDS: GABAPENTIN 400 MG CAPSULE PO ×3 (08:42→17:36)
[2022-05-10] MEDS: carvediloL 25 MG TABLET PO ×2 (08:43→17:35)
[2022-05-10] MEDS: MULTIVITAMINS /C LUTEIN (CENTRUM SILVER) TABLET *BKC 1 TAB PO (08:43)
[2022-05-10] MEDS: QUEtiapine FUMARATE 12.5 MG TABLET PO (08:44)
[2022-05-10] MEDS: FERROUS SULFATE 324 MG TABLET PO ×2 (08:44→17:36)
[2022-05-10] MEDS: FUROSEMIDE 40 MG TABLET PO (08:44)
[2022-05-10] MEDS: ASCORBIC ACID 500 MG TABLET PO ×2 (08:44→17:33)
[2022-05-10] MEDS: POTASSIUM CHLORIDE 20 MEQ PACKET (FOR LIQUID) 40 MEQ PO ×2 (08:44→17:36)
[2022-05-10] MEDS: ASPIRIN 81 MG ENTERIC TABLET PO (08:44)
[2022-05-10] MEDS: CHOLECALCIFEROL 1,000 UNITS TABLET 2000 UNITS PO (08:45)
[2022-05-10] MEDS: ESCITALOPRAM OXALATE 10 MG TABLET PO (08:45)
[2022-05-10 08:46] LABS: Glucose Point of Care 265 mg/dl (65-105)
[2022-05-10] MEDS: COLLAGENASE OINT 30 GM TUBE 1 APPLIC TOPICAL (08:47)
[2022-05-10] MEDS: TOLNAFTATE 1% POWDER 45 GM BTL 1 APPLIC TOPICAL ×2 (08:47→20:13)
[2022-05-10] MEDS: SOD HYPOCHLORITE 1/4 STRENGTH 473 ML 1 APPLIC TOPICAL ×2 (08:47→20:13)
[2022-05-10] MEDS: INSULIN ASPART (*BKC) 100 UNITS/ML SUB-Q ×6 (08:58→17:39)
--- NOTE | 2022-05-10 12:15 | P.PNNP_ITS ---
Progress Note: A&P Assessment and Plan (1) CHRIS (acute kidney injury): Code(s): N17.9 - Acute kidney failure, unspecified Status: Acute Assessment and Plan: * creatinine relatively stable if not slow improvement * CHRIS present or is this just progression of her known CKD(?) * suspect her wounds and infection issues may be causing some fluctuations (2) Stage 3b chronic kidney disease: Code(s): N18.32 - Chronic kidney disease, stage 3b Status: Chronic Assessment and Plan: * baseline creatinine has fluctuated from 1.5 - 2.1mg/dl * this has been present since at least 2019 if not longer * presumably secondary to diabetes, hypertension, vascular disease, and CONNOR (3) Cellulitis and abscess of buttock: Code(s): L02.31 - Cutaneous abscess of buttock; L03.317 - Cellulitis of buttock Status: Acute Assessment and Plan: * cultures noted * on antibiotics (4) Vulvar lesion: Code(s): N90.89 - Other specified noninflammatory disorders of vulva and perineum Status: Acute Assessment and Plan: * 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 * 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, with focal microinvasion * will need outpatient follow-up (5) Pressure ulcer of right heel: Code(s): L89.619 - Pressure ulcer of right heel, unspecified stage Status: Acute Assessment and Plan: * Group G Streptococcus grew on wound culture from right heel * Surgery following * s/p debridement (on 04/29/22) * local wound care (6) Hypertension: Code(s): I10 - Essential (primary) hypertension Status: Chronic Assessment and Plan: * reasonable control at this time * follow trend of hemodynamics (7) Insulin dependent type 2 diabetes mellitus: Code(s): E11.9 - Type 2 diabetes mellitus without complications; Z79.4 - long-term (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 Subjective Date/time seen: 05/10/22 12:15 Tolerated debridement of right heel yesterday afternoon without any complications; otherwise, she seems to be feeling reasonably well; pain control adequate; no apparent issues/eents overnight or earlier this morning. Exam Narrative: General: WD/WN female in NAD Heart: normal S1 and S2; no rub Lungs: clear to auscultation Abdomen: soft, nontender, nondistended, positive bowel sounds Extremities: no cyanosis or clubbing; no edema Skin: bilateral heel ulcers; right heel dressings in place Objective Data Vital Signs Vital Signs: Vital Signs Temp Pulse Resp BP Pulse Ox O2 Del Method O2 Flow Rate 05/10/22 08:43 72 05/10/22 06:37 98 F 73 22 H 138/77 98 05/10/22 04:00 68 05/10/22 00:00 71 05/09/22 20:00 75 05/09/22 21:00 99 Room Air 05/09/22 20:00 Room Air 05/09/22 22:12 98.1 F 74 22 H 143/83 H 98 05/09/22 18:00 98.2 F 73 18 169/74 H 100 05/09/22 17:30 98.1 F 71 20 154/74 H 100 05/09/22 17:15 97.9 F 69 18 154/71 H 100 05/09/22 18:02 71 05/09/22 16:28 66 16 174/84 H 93 Room Air 05/09/22 16:10 67 12 167/86 H 91 Room Air 05/09/22 15:54 97.1 F L 64 20 145/73 H 97 Simple Face Mask 6
--- NOTE | 2022-05-10 12:15 | PM.PNNEP ---
Progress Note: A&P Assessment and Plan (1) CHRIS (acute kidney injury): Code(s): N17.9 - Acute kidney failure, unspecified Status: Acute Assessment and Plan: creatinine relatively stable if not slow improvement CHRIS present or is this just progression of her known CKD(?) suspect her wounds and infection issues may be causing some fluctuations (2) Stage 3b chronic kidney disease: Code(s): N18.32 - Chronic kidney disease, stage 3b Status: Chronic Assessment and Plan: baseline creatinine has fluctuated from 1.5 - 2.1mg/dl this has been present since at least 2019 if not longer presumably secondary to diabetes, hypertension, vascular disease, and CONNOR (3) Cellulitis and abscess of buttock: Code(s): L02.31 - Cutaneous abscess of buttock; L03.317 - Cellulitis of buttock Status: Acute Assessment and Plan: cultures noted on antibiotics (4) Vulvar lesion: Code(s): N90.89 - Other specified noninflammatory disorders of vulva and perineum Status: Acute Assessment and Plan: 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4 - [facility] (current) use of insulin Status: Chronic Assessment and Plan: follow accuchecks glycemic control Will continue to follow. Subjective Date/time seen: 05/10/22 12:15 Tolerated debridement of right heel yesterday afternoon without any complications; otherwise, she seems to be feeling reasonably well; pain control adequate; no apparent issues/eents overnight or earlier this morning. Exam Narrative: General: WD/WN female in NAD Heart: normal S1 and S2; no rub Lungs: clear to auscultation Abdomen: soft, nontender, nondistended, positive bowel sounds Extremities: no cyanosis or clubbing; no edema Skin: bilateral heel ulcers; right heel dressings in place Objective Data Vital Signs Vital Signs: Vital Signs Temp Pulse Resp BP Pulse Ox O2 Del Method O2 Flow Rate 05/10/22 08:43 72 05/10/22 06:37 98 F 73 22 H 138/77 98 05/10/22 04:00 68 05/10/22 00:00 71 05/09/22 20:00 75 05/09/22 21:00 99 Room Air 05/09/22 20:00 Room Air 05/09/22 22:12 98.1 F 74 22 H 143/83 H 98 05/09/22 18:00 98.2 F 73 18 169/74 H 100 05/09/22 17:30 98.1 F 71 20 154/74 H 100 05/09/22 17:15 97.9 F 69 18 154/71 H 100 05/09/22 18:02 71 05/09/22 16:28 66 16 174/84 H 93 Room Air 05/09/22 16:10 67 12 167/86 H 91 Room Air 05/09/22 15:54 97.1 F L 64 20 145/73 H 97 Simple Face Mask 6 05/09/22 14:28 96.8 F L 69 16 149/78 H 95 Room Air Intake/Output Intake/Output: Intake & Output 05/07/22 05/08/22 05/09/22 05/10/22 23:59 23:59 23:59 23:59 Intake Total 900 2840 1310 960 Output Total 4000 2700 3375 700 Balance -3100 140 -2065 260 Meds/Results Medications: Active Medications Generic Name Dose Route Start Last Admin Trade Name Freq PRN Reason Stop Dose Admin Acetaminophen 650 mg 05/02/22 22:18 05/07/22 09:59 Acetaminophen 325 Mg Tablet PO 650 mg Q4H PRN Administration Mild Pain (1-3) or Fever Hydrocodone Bitart/Acetaminophen 1 tab 05/07/22 16:34 05/10/22 08:41 Hydrocodone/Acet
[2022-05-10 12:36] LABS: Glucose Point of Care 295 mg/dl (65-105)
--- NOTE | 2022-05-10 15:44 | PM.IMPN ---
Progress Note: A&P Assessment and Plan (1) Cellulitis and abscess of buttock: Code(s): L02.31 - Cutaneous abscess of buttock; L03.317 - Cellulitis of buttock Status: Acute Assessment and Plan: 1 of 2 blood cultures, as well as the wound culture, were positive for group G Streptococcus One blood culture showed Staphylococcus epidermis, another had staphylococcal hominis, suspect contaminant Sens showed resistance to rocephin, will switch to IV doxycycline, d/c flagyl Repeat blood cultures No growth to date For group G Streptococcus penicillin is drug of choice. Will switch him back to Rocephin 2 g every day Group G Streptococcus grew on wound culture from both right heel as well as sacrum. Underwent debridement of right heel 05/09/2022 General surgery consulted. Appreciate his recommendations. 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 (3) Acute and chronic respiratory failure: Qualifiers: Respiratory failure complication: hypoxia and hypercapnia Qualified Code(s): J96.21 - Acute and chronic respiratory failure with hypoxia; J96.22 - Acute and chronic respiratory failure with hypercapnia Code(s): J96.20 - Acute and chronic respiratory failure, unspecified whether with hypoxia or hypercapnia Status: Acute Assessment and Plan: Stable (4) CHF exacerbation: Qualifiers: Heart failure type: diastolic Qualified Code(s): I50.33 - Acute on chronic diastolic (congestive) heart failure Code(s): I50.9 - Heart failure, unspecified Status: Acute Assessment and Plan: Euvolemic, continue home meds (5) Uncontrolled stage 2 hypertension: Code(s): I10 - Essential (primary) hypertension Status: Acute Assessment and Plan: Stable (6) Chronic renal insufficiency: Qualifiers: Chronic kidney disease stage: stage 3 (moderate) Chronic kidney disease stage 3 subtype: stage 3b (GFR 30-44) Qualified Code(s): N18.32 - Chronic kidney disease, stage 3b Code(s): N18.9 - Chronic kidney disease, unspecified Status: Acute Assessment and Plan: Stable, appears to have a baseline of 1.8, unsure if this is new baseline or changes need to be made to improve kidney status, nephrology consult recommendation appreciated Creatinine stable Chronic Chen (7) Insulin dependent type 2 diabetes mellitus: Code(s): E11.9 - Type 2 diabetes mellitus without complications; 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 Ulcer goes all the way to the bone calcaneum Will get x-ray to see if any changes of osteomyelitis present. Continue on antibiotics as ordered. (9) Pressure ulcer, heel, left, unstageable: Code(s): L89.620 - Pressure ulcer of left heel, unstageable Status: Acute Assessment and Plan: Continue localized wound care. Plan bed-bound residential resident Several decubitus ulcers sacral DVT prophylaxis with SCDs GI prophylaxis not indicated Code status full code Subjective Date/time seen: 05/10/22 15:44 Interval history: Overnight events. Feels better on her heels after the debridement today. No fever chills. Denies any shortness of breath or chest pain. Review of Systems Review of Systems: All systems reviewed & are unremarkable except as noted in HPI and below Exa
[2022-05-10 17:32] LABS: Glucose Point of Care 272 mg/dl (65-105)
[2022-05-10] MEDS: cefTRIAXone 2 GM in SODIUM CHLORIDE 0.9% IV 100 ML 200 ML IVPB (17:59)
[2022-05-10] MEDS: ATORVASTATIN 40 MG TABLET PO (20:14)
[2022-05-10] MEDS: hydrOXYzine HCL 25 MG TABLET PO (20:14)
[2022-05-10] MEDS: OLANZapine 5 MG TABLET PO (20:14)
[2022-05-10] MEDS: QUEtiapine FUMARATE XR 50 MG TAB.ER.24H 150 MG PO (20:14)
[2022-05-10] MEDS: INSULIN GLARGINE (*BKC) 100 UNITS/ML 20 UNITS SUB-Q (21:03)
[2022-05-10 21:07] LABS: Glucose Point of Care 333 mg/dl (65-105)
[2022-05-11] VITALS (9 sets, daily range): BP systolic 125–153; BP diastolic 64–77; PULSE 61–82; RESP 18–22; TEMP 36.5–36.8; O2SAT 93–95
[2022-05-11 06:18] LABS: Basophils Absolute Auto 0.1 K/mm3 (0.0-0.1); Basophils Percent Auto 1.1 % (0.2-1.2); Eosinophils Absolute Auto 0.3 K/mm3 (0-0.3); Eosinophils Percent Auto 2.9 % (0-4.4); Hematocrit 41.6 % (37.0-47.0); Hemoglobin 12.8 g/dL (12.0-15.0); Immature Granulocyte Absolute 0.42 K/mm3 (0.00-0.031); Immature Granulocyte Percent A 3.8 % (0-0.5); Lymphocytes Absolute Auto 2.38 K/mm3 (0.9-3.2); Lymphocytes Percent Auto 21.6 % (18.3-44.2); Mean Corpuscular HGB Conc 30.8 g/dl (32-36); Mean Corpuscular Hemoglobin 27.2 pg (26-34); Mean Corpuscular Volume 88.5 fl (80-100); Mean Platelet Volume 9.5 fl (7.4-10.4); Monocytes Absolute Auto 1.2 K/mm3 (0.1-0.6); Monocytes Percent Auto 10.6 % (2.6-8.5); Neutrophils Absolute Auto 6.6 K/mm3 (1.3-6.7); Platelet Count Result 337 k/mm3 (150-375)
[2022-05-11 06:34] LABS: Alanine Aminotransferase 14 U/L (6-35); Albumin Level 3.4 g/dL (3.5-5.1); Alkaline Phosphatase 103 U/L (38-126); Anion Gap 9 mmol/L (8-16); Aspartate Amino Transferase 28 U/L (14-36); Bilirubin,Total 0.3 mg/dL (0.2-1.3); Blood Urea Nitrogen 81 mg/dL (7-17); Calcium 7.7 mg/dL (8.4-10.2); Carbon Dioxide 30 mmol/L (22-30); Chloride 94 mmol/L (98-107); Estimated CRCL calculation 38 ml/min; Estimated Glomerular Filt Rate 26; Glucose 268 mg/dL (65-110); Magnesium 1.9 mg/dL (1.6-2.3); Potassium 4.1 mmol/L (3.4-5.0); Sodium 133 mmol/L (137-145)
[2022-05-11] MEDS: hydrALAZINE HCL 25 MG TABLET 75 MG PO ×3 (06:44→22:31)
[2022-05-11 08:43] LABS: Glucose Point of Care 215 mg/dl (65-105)
[2022-05-11] MEDS: HYDROcodone/acetaminophen (*CRX) 5-325 MG TABLET 1 TAB PO ×3 (09:36→22:31)
[2022-05-11] MEDS: MULTIVITAMINS /C LUTEIN (CENTRUM SILVER) TABLET *BKC 1 TAB PO (09:38)
[2022-05-11] MEDS: FERROUS SULFATE 324 MG TABLET PO ×2 (09:38→18:27)
[2022-05-11] MEDS: ASCORBIC ACID 500 MG TABLET PO ×2 (09:38→18:29)
[2022-05-11] MEDS: GABAPENTIN 400 MG CAPSULE PO ×3 (09:38→18:24)
[2022-05-11] MEDS: ASPIRIN 81 MG ENTERIC TABLET PO (09:38)
[2022-05-11] MEDS: FUROSEMIDE 40 MG TABLET PO (09:38)
[2022-05-11] MEDS: amLODIPine BESYLATE 5 MG TABLET 10 MG PO (09:38)
[2022-05-11] MEDS: ESCITALOPRAM OXALATE 10 MG TABLET PO (09:38)
[2022-05-11] MEDS: QUEtiapine FUMARATE 12.5 MG TABLET PO (09:39)
[2022-05-11] MEDS: carvediloL 25 MG TABLET PO ×2 (09:39→18:27)
[2022-05-11] MEDS: metOLazone 2.5 MG TABLET PO (09:40)
[2022-05-11] MEDS: COLLAGENASE OINT 30 GM TUBE 1 APPLIC TOPICAL (09:40)
[2022-05-11] MEDS: CHOLECALCIFEROL 1,000 UNITS TABLET 2000 UNITS PO (09:40)
[2022-05-11] MEDS: TOLNAFTATE 1% POWDER 45 GM BTL 1 APPLIC TOPICAL ×2 (09:41→22:33)
[2022-05-11] MEDS: POTASSIUM CHLORIDE 20 MEQ PACKET (FOR LIQUID) 40 MEQ PO ×2 (09:42→18:28)
[2022-05-11] MEDS: INSULIN ASPART (*BKC) 100 UNITS/ML SUB-Q ×5 (09:43→18:35)
--- NOTE | 2022-05-11 11:35 | PM.PNGS ---
Progress Note: A&P Assessment and Plan (1) Pressure ulcer of right heel: Code(s): L89.619 - Pressure ulcer of right heel, unspecified stage Status: Chronic Assessment and Plan: Improved after debridement 2 days ago but still necrotic, black and tissue over heal with minimal if any granulation tissue. Continue Santyl dressing changes. May try to debride further at bedside if patient will allow. Continue dressings and waffle boots. Subjective Subjective Date/Time Seen: 05/11/22 11:35 Post Op day: 2 Patient reports: no new complaints and feels better Exam Extrem: Right lower extremity: foot (Still black and necrotic material on heal, no granulation tissue noted) Objective Data Vital Signs Vital Signs: Vital Signs - 24 hr 05/10/22 14:32 05/10/22 17:35 05/10/22 19:18 Temperature 36.8 C 36.7 C Pulse Rate 79 84 75 Respiratory Rate 20 20 Blood Pressure 152/70 H 140/61 Pulse Oximetry 97 91 Oxygen Delivery 05/10/22 12:00 05/10/22 16:00 05/10/22 19:55 Temperature Pulse Rate 78 81 Respiratory Rate Blood Pressure Pulse Oximetry Oxygen Delivery Room Air 05/11/22 06:00 05/10/22 20:00 05/11/22 00:00 Temperature 36.6 C Pulse Rate 82 73 70 Respiratory Rate 22 H Blood Pressure 153/77 H Pulse Oximetry 93 Oxygen Delivery 05/11/22 04:00 05/11/22 09:39 Temperature Pulse Rate 61 64 Respiratory Rate Blood Pressure Pulse Oximetry Oxygen Delivery Intake/Output Intake/Output: Intake & Output 05/08/22 05/09/22 05/10/22 05/11/22 23:59 23:59 23:59 23:59 Intake Total 2840 1410 1560 480 Output Total 2700 3375 1450 1550 Balance 140 -1965 110 -1070 Meds/Results Medications: Active Medications Generic Name Dose Route Start Last Admin Trade Name Freq PRN Reason Stop Dose Admin Acetaminophen 650 mg 05/02/22 22:18 05/07/22 09:59 Acetaminophen 325 Mg Tablet PO 650 mg Q4H PRN Administration Mild Pain (1-3) or Fever Hydrocodone Bitart/Acetaminophen 1 tab 05/07/22 16:34 05/11/22 09:36 Hydrocodone/Acetaminophen (*Crx) 5-325 Mg Tablet PO 1 tab Q4H PRN Administration Pain Rated 4-6 Albuterol 2.5 mg 05/02/22 00:34 Albuterol Sulfate Neb 2.5 Mg/3 Ml Inh INHALATION Q6HRT PRN Shortness Of Breath Amlodipine Besylate 10 mg 05/03/22 09:00 05/11/22 09:38 Amlodipine Besylate 5 Mg Tablet PO 10 mg DAILY GRANT Administration Ascorbic Acid 500 mg 05/03/22 09:00 05/11/22 09:38 Ascorbic Acid 500 Mg Tablet PO 500 mg BID GRANT Administration Aspirin 81 mg 05/03/22 09:00 05/11/22 09:38 Aspirin 81 Mg Enteric Tablet PO 81 mg DAILY GRANT Administration Atorvastatin Calcium 40 mg 05/02/22 21:00 05/10/22 20:14 Atorvastatin 40 Mg Tablet PO 40 mg HS GRANT Administration Benzonatate 100 mg 05/02/22 18:18 05/04/22 05:40 Benzonatate 100 Mg Capsule PO 100 mg TID PRN Administration Cough Carvedilol 25 mg 05/03/22 08:00 05/11/22 09:39 Carvedilol 25 Mg Tablet PO 25 mg BIDWM GRANT Administration Clonidine HCl 1 patch 05/05/22 09:00 05/05/22 08:34 Clonidine 0.2 Mg/24 Hr Patch TRANSDERM Not Given Mo@0900 [facility] Collagenase 1 applic 05/03/22 09:00 05/11/22 09:40 Collagenase Oint 30 Gm Tube TOPICAL 1 applic DAILY GRANT Administration Dextrose 12.5 gm 05/02/22 00:39 Dextrose 50% 25 Gm/50 Ml Syringe IV PUSH PRN PRN Hypoglycemia Protocol Escitalopram Oxalate 10 mg 05/03/22 09:00 05/11/22 09:38 Escitalopram Oxalate 10 Mg Tablet PO 10 mg DAILY GRANT Administration Fentanyl Citrate 25 mcg 05/05/22 14:10 Fentanyl Citrate Inj (*Crx) 100 Mcg/2 Ml Vial IV PUSH Q2M PRN Pain Fentanyl Citrate 25 mcg 05/09/22 14:40 05/09/22 14:43 Fentanyl Citrate Inj (*Crx) 100 Mcg/2 Ml Vial IV PUSH 25 mcg Q5MIN PRN Administration Pain Fentanyl Citrate 25 mcg 05/09/22 14:47 Fentanyl Citrate Inj (*Crx) 100 Mcg
--- NOTE | 2022-05-11 12:06 | P.PNNP_ITS ---
Progress Note: A&P Assessment and Plan (1) CHRIS (acute kidney injury): Code(s): N17.9 - Acute kidney failure, unspecified Status: Acute Assessment and Plan: * creatinine relatively stable if not slow improvement * CHRIS present or is this just progression of her known CKD(?) * suspect her wounds and infection issues may be causing some fluctuations (2) Stage 3b chronic kidney disease: Code(s): N18.32 - Chronic kidney disease, stage 3b Status: Chronic Assessment and Plan: * baseline creatinine has fluctuated from 1.5 - 2.1mg/dl * this has been present since at least 2019 if not longer * presumably secondary to diabetes, hypertension, vascular disease, and CONNOR (3) Cellulitis and abscess of buttock: Code(s): L02.31 - Cutaneous abscess of buttock; L03.317 - Cellulitis of buttock Status: Acute Assessment and Plan: * cultures noted * on antibiotics (4) Vulvar lesion: Code(s): N90.89 - Other specified noninflammatory disorders of vulva and perineum Status: Acute Assessment and Plan: * Patient Experience Coordinator following * 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, with focal microinvasion * will need outpatient follow-up (5) Pressure ulcer of right heel: Code(s): L89.619 - Pressure ulcer of right heel, unspecified stage Status: Chronic Assessment and Plan: * Group G Streptococcus grew on wound culture from right heel * Surgery following * s/p debridement (on 05/09/22) * local wound care (6) Hypertension: Code(s): I10 - Essential (primary) hypertension Status: Chronic Assessment and Plan: * reasonable control at this time * follow trend of hemodynamics (7) Insulin dependent type 2 diabetes mellitus: Code(s): E11.9 - Type 2 diabetes mellitus without complications; Z79.4 - director long term care (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 Subjective Date/time seen: 05/11/22 12:06 Appears to be doing relatively well; no acute issues or problems voiced; nursing report some vaginal bleeding and Patient Experience Coordinator is coming to re-assess; no other events overnight or earlier this morning; no apparent distress to report. Exam Narrative: General: WD/WN female in NAD Heart: normal S1 and S2; no rub Lungs: clear to auscultation Abdomen: soft, nontender, nondistended, positive bowel sounds Extremities: no cyanosis or clubbing; no edema Skin: right heel dressings in place Objective Data Vital Signs Vital Signs: Vital Signs Temp Pulse Resp BP Pulse Ox O2 Del Method 05/11/22 09:39 64 05/11/22 04:00 61 05/11/22 00:00 70 05/10/22 20:00 73 05/11/22 06:00 98 F 82 22 H 153/77 H 93 05/10/22 19:55 Room Air 05/10/22 16:00 81 05/10/22 19:18 98.1 F 75 20 140/61 91 05/10/22 17:35 84 Intake/Output Intake/Output: Intake & Output 05/08/22 05/09/22 05/10/22 05/11/22 23:59 23:59 23:59 23:59 Intake Total 2840 1410 1560 720 Output Total 2700 3375 1450 1550 Balance 140 -1965 110 -830 Meds/Results Medications: Active Me
--- NOTE | 2022-05-11 12:06 | PM.PNNEP ---
Progress Note: A&P Assessment and Plan (1) CHRIS (acute kidney injury): Code(s): N17.9 - Acute kidney failure, unspecified Status: Acute Assessment and Plan: creatinine relatively stable if not slow improvement CHRIS present or is this just progression of her known CKD(?) suspect her wounds and infection issues may be causing some fluctuations (2) Stage 3b chronic kidney disease: Code(s): N18.32 - Chronic kidney disease, stage 3b Status: Chronic Assessment and Plan: baseline creatinine has fluctuated from 1.5 - 2.1mg/dl this has been present since at least 2019 if not longer presumably secondary to diabetes, hypertension, vascular disease, and CONNOR (3) Cellulitis and abscess of buttock: Code(s): L02.31 - Cutaneous abscess of buttock; L03.317 - Cellulitis of buttock Status: Acute Assessment and Plan: cultures noted on antibiotics (4) Vulvar lesion: Code(s): N90.89 - Other specified noninflammatory disorders of vulva and perineum Status: Acute Assessment and Plan: Hose Seamer following 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, with focal microinvasion will need outpatient follow-up (5) Pressure ulcer of right heel: Code(s): L89.619 - Pressure ulcer of right heel, unspecified stage Status: Chronic Assessment and Plan: Group G Streptococcus grew on wound culture from right heel Surgery following s/p debridement (on 05/09/22) local wound care (6) Hypertension: Code(s): I10 - Essential (primary) hypertension Status: Chronic Assessment and Plan: reasonable control at this time follow trend of hemodynamics (7) Insulin dependent type 2 diabetes mellitus: Code(s): E11.9 - Type 2 diabetes mellitus without complications; Z79.4 - intermediate (current) use of insulin Status: Chronic Assessment and Plan: follow accuchecks glycemic control Will continue to follow. Subjective Date/time seen: 05/11/22 12:06 Appears to be doing relatively well; no acute issues or problems voiced; nursing report some vaginal bleeding and Hose Seamer is coming to re-assess; no other events overnight or earlier this morning; no apparent distress to report. Exam Narrative: General: WD/WN female in NAD Heart: normal S1 and S2; no rub Lungs: clear to auscultation Abdomen: soft, nontender, nondistended, positive bowel sounds Extremities: no cyanosis or clubbing; no edema Skin: right heel dressings in place Objective Data Vital Signs Vital Signs: Vital Signs Temp Pulse Resp BP Pulse Ox O2 Del Method 05/11/22 09:39 64 05/11/22 04:00 61 05/11/22 00:00 70 05/10/22 20:00 73 05/11/22 06:00 98 F 82 22 H 153/77 H 93 05/10/22 19:55 Room Air 05/10/22 16:00 81 05/10/22 19:18 98.1 F 75 20 140/61 91 05/10/22 17:35 84 Intake/Output Intake/Output: Intake & Output 05/08/22 05/09/22 05/10/22 05/11/22 23:59 23:59 23:59 23:59 Intake Total 2840 1410 1560 720 Output Total 2700 3375 1450 1550 Balance 140 -1965 110 -830 Meds/Results Medications: Active Medications Generic Name Dose Route Start Last Admin Trade Name Freq PRN Reason Stop Dose Admin Acetaminophen 650 mg 05/02/22 22:18 05/07/22 09:59 Acetaminophen 325 Mg Tablet PO 650 mg Q4H PRN Administration Mild Pain (1-3) or Fever Hydrocodone Bitart/Acetaminophen 1 tab 05/07/22 16:34 05/11/22 14:56 Hydrocodone/Acetaminophen (*Crx) 5-325 Mg Tablet PO 1 tab Q4H PRN Administration Pain Rated 4-6 Albuterol 2.5 mg 05/02/22 00:34 Albuterol Sulfate Neb 2.5 Mg/3 Ml Inh INHALATION Q6HRT PRN Shortness Of Breath Amlodipine Besylate 10 mg 05/03/22 09:00 05/11/22 09:38 Amlodipine Besylate 5 Mg Tablet PO 10 mg DAILY GRNAT Administration Ascorbic Acid 500 mg 05/03/22 09:00 05/11/22 09:38 Ascorb
[2022-05-11 12:39] LABS: Glucose Point of Care 269 mg/dl (65-105)
--- NOTE | 2022-05-11 12:39 | PM.GYNPNOP ---
COMPUTER BOOKKEEPER - A/P Assessment and plan (1) Vulvar carcinoma: Code(s): C51.9 - Malignant neoplasm of vulva, unspecified Status: Acute Assessment and Plan: female genital bleeding reported. Patient has no complaints regarding the female genital tract at this time. Vulva was examined. There is a clot over the vulva that was removed. The bowel was examined in part. A thorough exam could not be performed at the bedside due to the mobility of the patient. The biopsy site seemed to be oozing. Monsel's solution was applied to the biopsy sites. Hopefully this will temporize the bleeding or slow the bleeding to where it was stopped. Will consider examination in the OR if bleeding continues. Postoperative Procedures: Procedures Operation Date: 05/05/22 14:00 Actual Procedure Side Surgeon p Biospy of RIGHT Vulva x 3 Right Simone Baron MD Operation Date: 05/09/22 16:00 Actual Procedure Side Surgeon p Debridement Decubitus Ulcer Right Heel Right Surinder Dias MD Time Spent With Patient Time: Total time spent is greater than 50% in coordination of care (as documented) at patient's floor/unit and/or counseling patient: Time with patient: 15 - 25 minutes COMPUTER BOOKKEEPER- PN:Subj Post-Op Subjective Date/time seen: 05/11/22 12:39 female genital bleeding reported. Patient has no complaints regarding the female genital tract at this time. Vulva was examined. There is a clot over the vulva that was removed. The bowel was examined in part. A thorough exam could not be performed at the bedside due to the mobility of the patient. The biopsy site seemed to be oozing. Monsel's solution was applied to the biopsy sites. Hopefully this will temporize the bleeding or slow the bleeding to where it was stopped. Will consider examination in the OR if bleeding continues. Interval history: Overnight events. Feels better on her heels after the debridement today. No fever chills. Denies any shortness of breath or chest pain. COMPUTER BOOKKEEPER - PN: Obj Data Vital Signs Vital Signs: Vital Signs - 24 hr 05/10/22 14:32 05/10/22 17:35 05/10/22 19:18 Temperature 98.2 F 98.1 F Pulse Rate 79 84 75 Respiratory Rate 20 20 Blood Pressure 152/70 H 140/61 Pulse Oximetry 97 91 Oxygen Delivery 05/10/22 16:00 05/10/22 19:55 05/11/22 06:00 Temperature 98 F Pulse Rate 81 82 Respiratory Rate 22 H Blood Pressure 153/77 H Pulse Oximetry 93 Oxygen Delivery Room Air 05/10/22 20:00 05/11/22 00:00 05/11/22 04:00 Temperature Pulse Rate 73 70 61 Respiratory Rate Blood Pressure Pulse Oximetry Oxygen Delivery 05/11/22 09:39 Temperature Pulse Rate 64 Respiratory Rate Blood Pressure Pulse Oximetry Oxygen Delivery Intake/Output Intake/Output: Intake & Output 05/08/22 05/09/22 05/10/22 05/11/22 23:59 23:59 23:59 23:59 Intake Total 2840 1410 1560 480 Output Total 2700 3375 1450 1550 Balance 140 -1965 110 -1070 Meds/Results Medications: Active Medications Generic Name Dose Route Start Last Admin Trade Name Freq PRN Reason Stop Dose Admin Acetaminophen 650 mg 05/02/22 22:18 05/07/22 09:59 Acetaminophen 325 Mg Tablet PO 650 mg Q4H PRN Administration Mild Pain (1-3) or Fever Hydrocodone Bitart/Acetaminophen 1 tab 05/07/22 16:34 05/11/22 09:36 Hydrocodone/Acetaminophen (*Crx) 5-325 Mg Tablet PO 1 tab Q4H PRN Administration Pain Rated 4-6 Albuterol 2.5 mg 05/02/22 00:34 Albuterol Sulfate Neb 2.5 Mg/3 Ml Inh INHALATION Q6HRT PRN Shortness Of Breath Amlodipine Besylate 10 mg 05/03/22 09:00 05/11/22 09:38 Amlodipine Besylate 5 Mg Tablet PO 10 mg DAILY GRANT Administration Ascorbic Acid 500 mg 05/03/22 09:00 05/11/22 09:38 Ascorbic Acid 500 Mg Tablet PO 500 mg BID GRANT Administration Aspirin 81 mg 05/03/22 09:00 05/11/22 09:38 Aspirin 81 Mg Enteric Tablet PO 81 mg DAILY GRANT Administration Atorvastatin Calcium 40
--- NOTE | 2022-05-11 14:17 | PM.IMPN ---
Progress Note: A&P Assessment and Plan (1) Cellulitis and abscess of buttock: Code(s): L02.31 - Cutaneous abscess of buttock; L03.317 - Cellulitis of buttock Status: Acute Assessment and Plan: 1 of 2 blood cultures, as well as the wound culture, were positive for group G Streptococcus One blood culture showed Staphylococcus epidermis, another had staphylococcal hominis, suspect contaminant Sens showed resistance to rocephin, will switch to IV doxycycline, d/c flagyl Repeat blood cultures No growth to date For group G Streptococcus penicillin is drug of choice. Will switch him back to Rocephin 2 g every day Group G Streptococcus grew on wound culture from both right heel as well as sacrum. Underwent debridement of right heel 05/09/2022 General surgery consulted. Appreciate his recommendations. 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 Now having bleeding likely from the biopsy area Appreciated gynecology help To OR to stop bleeding if needed planned Monitor H&H (3) Acute and chronic respiratory failure: Qualifiers: Respiratory failure complication: hypoxia and hypercapnia Qualified Code(s): J96.21 - Acute and chronic respiratory failure with hypoxia; J96.22 - Acute and chronic respiratory failure with hypercapnia Code(s): J96.20 - Acute and chronic respiratory failure, unspecified whether with hypoxia or hypercapnia Status: Acute Assessment and Plan: Stable (4) CHF exacerbation: Qualifiers: Heart failure type: diastolic Qualified Code(s): I50.33 - Acute on chronic diastolic (congestive) heart failure Code(s): I50.9 - Heart failure, unspecified Status: Acute Assessment and Plan: Euvolemic, continue home meds (5) Uncontrolled stage 2 hypertension: Code(s): I10 - Essential (primary) hypertension Status: Acute Assessment and Plan: Stable (6) Chronic renal insufficiency: Qualifiers: Chronic kidney disease stage: stage 3 (moderate) Chronic kidney disease stage 3 subtype: stage 3b (GFR 30-44) Qualified Code(s): N18.32 - Chronic kidney disease, stage 3b Code(s): N18.9 - Chronic kidney disease, unspecified Status: Acute Assessment and Plan: Stable, appears to have a baseline of 1.8, unsure if this is new baseline or changes need to be made to improve kidney status, nephrology consult recommendation appreciated Creatinine stable Chronic Chen (7) Insulin dependent type 2 diabetes mellitus: Code(s): E11.9 - Type 2 diabetes mellitus without complications; 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 Will need extended IV antibiotics to treat this at least 6 weeks Continue on antibiotics as ordered. (9) Pressure ulcer, heel, left, unstageable: Code(s): L89.620 - Pressure ulcer of left heel, unstageable Status: Acute Assessment and Plan: Continue localized wound care. Plan bed-bound shelter resident Several decubitus ulcers sacral DVT prophylaxis with SCDs GI prophylaxis not indicated Code status full code Subjective Date/time seen: 05/11/22 14:17 Interval history: Events noted. She has been having vaginal bleed. Gynecology has evaluated t
--- NOTE | 2022-05-11 14:57 | PM.GYNPNOP ---
WIRELESS RETAIL MANAGER - A/P Assessment and plan (1) Vulvar carcinoma: Code(s): C51.9 - Malignant neoplasm of vulva, unspecified Status: Acute Plan 05/11/22 14:57 Return to examine the patient for continued bleeding. She was examined. Some large clots removed from around the wound and from the vagina. This may be blood that ran into the vagina from the vulva. The skin folds may come together with enough pressure to force blood vagina. There was no bleeding at this time. More Monsel's was applied over the cancer surface where the biopsies were obtained. Considered a pressure dressing but not required at this time. To observe. Postoperative Procedures: Procedures Operation Date: 05/05/22 14:00 Actual Procedure Side Surgeon p Biospy of RIGHT Vulva x 3 Right Simone Baron MD Operation Date: 05/09/22 16:00 Actual Procedure Side Surgeon p Debridement Decubitus Ulcer Right Heel Right Surinder Dias MD Time Spent With Patient Time: Total time spent is greater than 50% in coordination of care (as documented) at patient's floor/unit and/or counseling patient: Time with patient: 15 - 25 minutes WIRELESS RETAIL MANAGER- PN:Subj Post-Op Subjective Date/time seen: 05/11/22 14:57 Return to examine the patient for continued bleeding. She was examined. Some large clots removed from around the wound and from the vagina. This may be blood that ran into the vagina from the vulva. The skin folds may come together with enough pressure to force blood vagina. There was no bleeding at this time. More Monsel's was applied over the cancer surface where the biopsies were obtained. Considered a pressure dressing but not required at this time. To observe. Interval history: Events noted. She has been having vaginal bleed. Gynecology has evaluated the patient. She complains of pain in her bilateral heel but is better. No fever chills. WIRELESS RETAIL MANAGER - PN: Obj Data Vital Signs Vital Signs: Vital Signs - 24 hr 05/10/22 17:35 05/10/22 19:18 05/10/22 16:00 Temperature 98.1 F Pulse Rate 84 75 81 Respiratory Rate 20 Blood Pressure 140/61 Pulse Oximetry 91 Oxygen Delivery 05/10/22 19:55 05/11/22 06:00 05/10/22 20:00 Temperature 98 F Pulse Rate 82 73 Respiratory Rate 22 H Blood Pressure 153/77 H Pulse Oximetry 93 Oxygen Delivery Room Air 05/11/22 00:00 05/11/22 04:00 05/11/22 09:39 Temperature Pulse Rate 70 61 64 Respiratory Rate Blood Pressure Pulse Oximetry Oxygen Delivery 05/11/22 14:00 Temperature 98.3 F Pulse Rate 66 Respiratory Rate 18 Blood Pressure 125/66 Pulse Oximetry 95 Oxygen Delivery Intake/Output Intake/Output: Intake & Output 05/08/22 05/09/22 05/10/22 05/11/22 23:59 23:59 23:59 23:59 Intake Total 2840 1410 1560 720 Output Total 2700 3375 1450 1550 Balance 140 -1965 110 -830 Meds/Results Medications: Active Medications Generic Name Dose Route Start Last Admin Trade Name Freq PRN Reason Stop Dose Admin Acetaminophen 650 mg 05/02/22 22:18 05/07/22 09:59 Acetaminophen 325 Mg Tablet PO 650 mg Q4H PRN Administration Mild Pain (1-3) or Fever Hydrocodone Bitart/Acetaminophen 1 tab 05/07/22 16:34 05/11/22 14:56 Hydrocodone/Acetaminophen (*Crx) 5-325 Mg Tablet PO 1 tab Q4H PRN Administration Pain Rated 4-6 Albuterol 2.5 mg 05/02/22 00:34 Albuterol Sulfate Neb 2.5 Mg/3 Ml Inh INHALATION Q6HRT PRN Shortness Of Breath Amlodipine Besylate 10 mg 05/03/22 09:00 05/11/22 09:38 Amlodipine Besylate 5 Mg Tablet PO 10 mg DAILY GRANT Administration Ascorbic Acid 500 mg 05/03/22 09:00 05/11/22 09:38 Ascorbic Acid 500 Mg Tablet PO 500 mg BID GRANT Administration Aspirin 81 mg 05/03/22 09:00 05/11/22 09:38 Aspirin 81 Mg Enteric Tablet PO 81 mg DAILY GRANT Administration Atorvastatin Calcium 40 mg 05/02/22 21:00 05/10/22 20:14 Atorvastatin 40 Mg Tablet PO 40 mg HS GRANT Administration Benzonatate
[2022-05-11 17:40] LABS: Glucose Point of Care 183 mg/dl (65-105)
[2022-05-11] MEDS: cefTRIAXone 2 GM in SODIUM CHLORIDE 0.9% IV 100 ML 200 ML IVPB (18:30)
[2022-05-11 22:01] LABS: Glucose Point of Care 219 mg/dl (65-105)
[2022-05-11] MEDS: QUEtiapine FUMARATE XR 50 MG TAB.ER.24H 150 MG PO (22:30)
[2022-05-11] MEDS: hydrOXYzine HCL 25 MG TABLET PO (22:31)
[2022-05-11] MEDS: OLANZapine 5 MG TABLET PO (22:32)
[2022-05-11] MEDS: ATORVASTATIN 40 MG TABLET PO (22:32)
[2022-05-11] MEDS: SOD HYPOCHLORITE 1/4 STRENGTH 473 ML 1 APPLIC TOPICAL (22:33)
[2022-05-11] MEDS: INSULIN GLARGINE (*BKC) 100 UNITS/ML 20 UNITS SUB-Q (22:35)
[2022-05-12] VITALS (11 sets, daily range): BP systolic 130–152; BP diastolic 72–74; PULSE 63–84; RESP 16–18; TEMP 36.4–36.7; O2SAT 91–98
[2022-05-12] MEDS: hydrALAZINE HCL 25 MG TABLET 75 MG PO ×3 (05:51→20:35)
[2022-05-12 06:00] LABS: Basophils Absolute Auto 0.2 K/mm3 (0.0-0.1); Basophils Percent Auto 1.4 % (0.2-1.2); Eosinophils Absolute Auto 0.7 K/mm3 (0-0.3); Eosinophils Percent Auto 5.6 % (0-4.4); Hematocrit 39.5 % (37.0-47.0); Hemoglobin 12.3 g/dL (12.0-15.0); Immature Granulocyte Absolute 0.26 K/mm3 (0.00-0.031); Immature Granulocyte Percent A 2.2 % (0-0.5); Lymphocytes Absolute Auto 3.23 K/mm3 (0.9-3.2); Lymphocytes Percent Auto 26.8 % (18.3-44.2); Mean Corpuscular HGB Conc 31.1 g/dl (32-36); Mean Corpuscular Hemoglobin 26.9 pg (26-34); Mean Corpuscular Volume 86.2 fl (80-100); Mean Platelet Volume 9.1 fl (7.4-10.4); Monocytes Absolute Auto 1.1 K/mm3 (0.1-0.6); Neutrophils Absolute Auto 6.6 K/mm3 (1.3-6.7); Platelet Count Result 303 k/mm3 (150-375); Red Blood Count 4.58 M/mm3 (4.2-5.4); Red Cell Distribution Width 15.9 % (11.5-14.5)
[2022-05-12 06:08] LABS: Alanine Aminotransferase 15 U/L (6-35); Albumin Level 3.2 g/dL (3.5-5.1); Alkaline Phosphatase 108 U/L (38-126); Anion Gap 6 mmol/L (8-16); Aspartate Amino Transferase 30 U/L (14-36); Bilirubin,Total 0.2 mg/dL (0.2-1.3); Blood Urea Nitrogen 77 mg/dL (7-17); Calcium 7.5 mg/dL (8.4-10.2); Carbon Dioxide 30 mmol/L (22-30); Chloride 94 mmol/L (98-107); Estimated CRCL calculation 35 ml/min; Estimated Glomerular Filt Rate 23; Glucose 177 mg/dL (65-110); Magnesium 1.7 mg/dL (1.6-2.3); Potassium 3.7 mmol/L (3.4-5.0); Sodium 130 mmol/L (137-145)
[2022-05-12 08:41] LABS: Glucose Point of Care 181 mg/dl (65-105)
[2022-05-12] MEDS: INSULIN ASPART (*BKC) 100 UNITS/ML SUB-Q ×4 (10:05→18:16)
[2022-05-12] MEDS: amLODIPine BESYLATE 5 MG TABLET 10 MG PO (10:06)
[2022-05-12] MEDS: MULTIVITAMINS /C LUTEIN (CENTRUM SILVER) TABLET *BKC 1 TAB PO (10:06)
[2022-05-12] MEDS: carvediloL 25 MG TABLET PO ×2 (10:06→17:36)
[2022-05-12] MEDS: FERROUS SULFATE 324 MG TABLET PO ×2 (10:07→17:36)
[2022-05-12] MEDS: cloNIDine 0.2 MG/24 HR PATCH 1 PATCH TRANSDERM (10:07)
[2022-05-12] MEDS: FUROSEMIDE 40 MG TABLET PO (10:07)
[2022-05-12] MEDS: ESCITALOPRAM OXALATE 10 MG TABLET PO (10:07)
[2022-05-12] MEDS: CHOLECALCIFEROL 1,000 UNITS TABLET 2000 UNITS PO (10:07)
[2022-05-12] MEDS: ASCORBIC ACID 500 MG TABLET PO ×2 (10:07→17:36)
[2022-05-12] MEDS: ASPIRIN 81 MG ENTERIC TABLET PO (10:07)
[2022-05-12] MEDS: QUEtiapine FUMARATE 12.5 MG TABLET PO (10:07)
[2022-05-12] MEDS: GABAPENTIN 400 MG CAPSULE PO ×3 (10:07→17:36)
[2022-05-12] MEDS: TOLNAFTATE 1% POWDER 45 GM BTL 1 APPLIC TOPICAL ×2 (10:09→20:36)
[2022-05-12] MEDS: COLLAGENASE OINT 30 GM TUBE 1 APPLIC TOPICAL (10:10)
--- NOTE | 2022-05-12 11:48 | P.PNNP_ITS ---
Progress Note: A&P Assessment and Plan (1) CHRIS (acute kidney injury): Code(s): N17.9 - Acute kidney failure, unspecified Status: Acute Assessment and Plan: * creatinine relatively stable if not slow improvement * CHRIS present or is this just progression of her known CKD(?) * suspect her wounds and infection issues may be causing some fluctuations (2) Stage 3b chronic kidney disease: Code(s): N18.32 - Chronic kidney disease, stage 3b Status: Chronic Assessment and Plan: * baseline creatinine has fluctuated from 1.5 - 2.1mg/dl * this has been present since at least 2019 if not longer * presumably secondary to diabetes, hypertension, vascular disease, and CONNOR (3) Cellulitis and abscess of buttock: Code(s): L02.31 - Cutaneous abscess of buttock; L03.317 - Cellulitis of buttock Status: Acute Assessment and Plan: * cultures noted * on antibiotics (4) Vulvar lesion: Code(s): N90.89 - Other specified noninflammatory disorders of vulva and perineum Status: Acute Assessment and Plan: * Campus Rep following * 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, with focal microinvasion * will need outpatient follow-up (5) Pressure ulcer of right heel: Code(s): L89.619 - Pressure ulcer of right heel, unspecified stage Status: Chronic Assessment and Plan: * Group G Streptococcus grew on wound culture from right heel * Surgery following * s/p debridement (on 05/09/22) * local wound care (6) Hypertension: Code(s): I10 - Essential (primary) hypertension Status: Chronic Assessment and Plan: * reasonable control at this time * follow trend of hemodynamics (7) Insulin dependent type 2 diabetes mellitus: Code(s): E11.9 - Type 2 diabetes mellitus without complications; 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 Subjective Date/time seen: 05/12/22 11:48 No real significant change noted -- appears to be doing reasonably well; no apparent distress noted; no isseus/problems overnight or earlier this morning; tolerating antibiotic therapy. Exam Narrative: General: WD/WN female in NAD Heart: normal S1 and S2; no rub Lungs: clear to auscultation Abdomen: soft, nontender, nondistended, positive bowel sounds Extremities: no cyanosis or clubbing; no edema Skin: right heel dressings in place Objective Data Vital Signs Vital Signs: Vital Signs Temp Pulse Resp BP Pulse Ox O2 Del Method 05/12/22 11:00 69 05/12/22 08:00 65 05/12/22 10:06 65 05/12/22 04:00 68 05/12/22 04:13 97.6 F 65 18 152/72 H 94 05/12/22 00:00 63 05/11/22 20:00 65 05/11/22 20:00 Room Air 05/11/22 21:51 97.7 F 65 20 138/64 93 05/11/22 18:27 70 Intake/Output Intake/Output: Intake & Output 05/09/22 05/10/22 05/11/22 05/12/22 23:59 23:59 23:59 23:59 Intake Total 1410 1660 970 480 Output Total 3375 1450 3500 1749 Balance -1965 481 -6635 -4091 Meds/Results Medications: Active Medi
--- NOTE | 2022-05-12 11:48 | PM.PNNEP ---
Progress Note: A&P Assessment and Plan (1) CHRIS (acute kidney injury): Code(s): N17.9 - Acute kidney failure, unspecified Status: Acute Assessment and Plan: creatinine relatively stable if not slow improvement CHRIS present or is this just progression of her known CKD(?) suspect her wounds and infection issues may be causing some fluctuations (2) Stage 3b chronic kidney disease: Code(s): N18.32 - Chronic kidney disease, stage 3b Status: Chronic Assessment and Plan: baseline creatinine has fluctuated from 1.5 - 2.1mg/dl this has been present since at least 2019 if not longer presumably secondary to diabetes, hypertension, vascular disease, and CONNOR (3) Cellulitis and abscess of buttock: Code(s): L02.31 - Cutaneous abscess of buttock; L03.317 - Cellulitis of buttock Status: Acute Assessment and Plan: cultures noted on antibiotics (4) Vulvar lesion: Code(s): N90.89 - Other specified noninflammatory disorders of vulva and perineum Status: Acute Assessment and Plan: What Job Titles Mean following 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, with focal microinvasion will need outpatient follow-up (5) Pressure ulcer of right heel: Code(s): L89.619 - Pressure ulcer of right heel, unspecified stage Status: Chronic Assessment and Plan: Group G Streptococcus grew on wound culture from right heel Surgery following s/p debridement (on 05/09/22) local wound care (6) Hypertension: Code(s): I10 - Essential (primary) hypertension Status: Chronic Assessment and Plan: reasonable control at this time follow trend of hemodynamics (7) Insulin dependent type 2 diabetes mellitus: Code(s): E11.9 - Type 2 diabetes mellitus without complications; Z79.4 - [facility] (current) use of insulin Status: Chronic Assessment and Plan: follow accuchecks glycemic control Will continue to follow. Subjective Date/time seen: 05/12/22 11:48 No real significant change noted -- appears to be doing reasonably well; no apparent distress noted; no isseus/problems overnight or earlier this morning; tolerating antibiotic therapy. Exam Narrative: General: WD/WN female in NAD Heart: normal S1 and S2; no rub Lungs: clear to auscultation Abdomen: soft, nontender, nondistended, positive bowel sounds Extremities: no cyanosis or clubbing; no edema Skin: right heel dressings in place Objective Data Vital Signs Vital Signs: Vital Signs Temp Pulse Resp BP Pulse Ox O2 Del Method 05/12/22 11:00 69 05/12/22 08:00 65 05/12/22 10:06 65 05/12/22 04:00 68 05/12/22 04:13 97.6 F 65 18 152/72 H 94 05/12/22 00:00 63 05/11/22 20:00 65 05/11/22 20:00 Room Air 05/11/22 21:51 97.7 F 65 20 138/64 93 05/11/22 18:27 70 Intake/Output Intake/Output: Intake & Output 05/09/22 05/10/22 05/11/22 05/12/22 23:59 23:59 23:59 23:59 Intake Total 1410 1660 970 480 Output Total 3375 1450 3500 [id number] [place] [id number] 291 -9701 -3183 Meds/Results Medications: Active Medications Generic Name Dose Route Start Last Admin Trade Name Freq PRN Reason Stop Dose Admin Acetaminophen 650 mg 05/02/22 22:18 05/07/22 09:59 Acetaminophen 325 Mg Tablet PO 650 mg Q4H PRN Administration Mild Pain (1-3) or Fever Hydrocodone Bitart/Acetaminophen 1 tab 05/07/22 16:34 05/11/22 22:31 Hydrocodone/Acetaminophen (*Crx) 5-325 Mg Tablet PO 1 tab Q4H PRN Administration Pain Rated 4-6 Albuterol 2.5 mg 05/02/22 00:34 Albuterol Sulfate Neb 2.5 Mg/3 Ml Inh INHALATION Q6HRT PRN Shortness Of Breath Amlodipine Besylate 10 mg 05/03/22 09:00 05/12/22 10:06 Amlodipine Besylate 5 Mg Tablet PO 10 mg DAILY GRANT Administration Ascorbic Acid 500 mg 05/03/22 09:00 05/12/22 10:07 Ascorbic Acid 500 Mg
[2022-05-12 12:59] LABS: Glucose Point of Care 193 mg/dl (65-105)
[2022-05-12] MEDS: SOD HYPOCHLORITE 1/4 STRENGTH 473 ML 1 APPLIC TOPICAL ×2 (13:55→20:36)
--- NOTE | 2022-05-12 15:43 | PM.IMPN ---
Progress Note: A&P Assessment and Plan (1) Cellulitis and abscess of buttock: Code(s): L02.31 - Cutaneous abscess of buttock; L03.317 - Cellulitis of buttock Status: Acute Assessment and Plan: 1 of 2 blood cultures, as well as the wound culture, were positive for group G Streptococcus One blood culture showed Staphylococcus epidermis, another had staphylococcal hominis, suspect contaminant Sens showed resistance to rocephin, will switch to IV doxycycline, d/c flagyl Repeat blood cultures No growth to date For group G Streptococcus penicillin is drug of choice. Will switch him back to Rocephin 2 g every day Group G Streptococcus grew on wound culture from both right heel as well as sacrum. Underwent debridement of right heel 05/09/2022 General surgery consulted. Appreciate his recommendations. 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 Now having bleeding likely from the biopsy area Appreciated gynecology help To OR to stop bleeding if needed planned Monitor H&H and remained stable Was bleed has stopped (3) Acute and chronic respiratory failure: Qualifiers: Respiratory failure complication: hypoxia and hypercapnia Qualified Code(s): J96.21 - Acute and chronic respiratory failure with hypoxia; J96.22 - Acute and chronic respiratory failure with hypercapnia Code(s): J96.20 - Acute and chronic respiratory failure, unspecified whether with hypoxia or hypercapnia Status: Acute Assessment and Plan: Stable (4) CHF exacerbation: Qualifiers: Heart failure type: diastolic Qualified Code(s): I50.33 - Acute on chronic diastolic (congestive) heart failure Code(s): I50.9 - Heart failure, unspecified Status: Acute Assessment and Plan: Euvolemic, continue home meds (5) Uncontrolled stage 2 hypertension: Code(s): I10 - Essential (primary) hypertension Status: Acute Assessment and Plan: Stable (6) Chronic renal insufficiency: Qualifiers: Chronic kidney disease stage: stage 3 (moderate) Chronic kidney disease stage 3 subtype: stage 3b (GFR 30-44) Qualified Code(s): N18.32 - Chronic kidney disease, stage 3b Code(s): N18.9 - Chronic kidney disease, unspecified Status: Acute Assessment and Plan: Stable, appears to have a baseline of 1.8, unsure if this is new baseline or changes need to be made to improve kidney status, nephrology consult recommendation appreciated Creatinine stable Chronic Chen (7) Insulin dependent type 2 diabetes mellitus: Code(s): E11.9 - Type 2 diabetes mellitus without complications; Z79.4 - intermediate manager (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 Will need extended IV antibiotics to treat this at least 6 weeks Continue on antibiotics as ordered. (9) Pressure ulcer, heel, left, unstageable: Code(s): L89.620 - Pressure ulcer of left heel, unstageable Status: Acute Assessment and Plan: Continue localized wound care. Plan bed-bound half-way resident Several decubitus ulcers sacral DVT prophylaxis with SCDs GI prophylaxis not indicated Code status full code Subjective Date/time seen: 05/12/22 15:43 Interval history: No overnight events. No further
[2022-05-12 17:27] LABS: Glucose Point of Care 209 mg/dl (65-105)
[2022-05-12] MEDS: cefTRIAXone 2 GM in SODIUM CHLORIDE 0.9% IV 100 ML 200 ML IVPB (17:35)
[2022-05-12] MEDS: HYDROcodone/acetaminophen (*CRX) 5-325 MG TABLET 1 TAB PO (18:38)
[2022-05-12 20:20] LABS: Glucose Point of Care 212 mg/dl (65-105)
[2022-05-12] MEDS: OLANZapine 5 MG TABLET PO (20:35)
[2022-05-12] MEDS: ATORVASTATIN 40 MG TABLET PO (20:35)
[2022-05-12] MEDS: hydrOXYzine HCL 25 MG TABLET PO (20:35)
[2022-05-12] MEDS: QUEtiapine FUMARATE XR 50 MG TAB.ER.24H 150 MG PO (20:35)
[2022-05-12] MEDS: INSULIN GLARGINE (*BKC) 100 UNITS/ML 20 UNITS SUB-Q (20:37)
[2022-05-13] VITALS (7 sets, daily range): BP systolic 135; BP diastolic 72; PULSE 69–80; RESP 16–18; TEMP 36.7–37.1; O2SAT 97–98
[2022-05-13] MEDS: HYDROcodone/acetaminophen (*CRX) 5-325 MG TABLET 1 TAB PO ×2 (01:39→21:15)
[2022-05-13 06:02] LABS: Basophils Absolute Auto 0.2 K/mm3 (0.0-0.1); Basophils Percent Auto 1.3 % (0.2-1.2); Eosinophils Absolute Auto 0.6 K/mm3 (0-0.3); Eosinophils Percent Auto 5.2 % (0-4.4); Hematocrit 38.8 % (37.0-47.0); Hemoglobin 12.1 g/dL (12.0-15.0); Immature Granulocyte Absolute 0.15 K/mm3 (0.00-0.031); Immature Granulocyte Percent A 1.3 % (0-0.5); Lymphocytes Absolute Auto 2.96 K/mm3 (0.9-3.2); Lymphocytes Percent Auto 24.7 % (18.3-44.2); Mean Corpuscular HGB Conc 31.2 g/dl (32-36); Mean Corpuscular Hemoglobin 27.1 pg (26-34); Mean Corpuscular Volume 86.8 fl (80-100); Mean Platelet Volume 9.5 fl (7.4-10.4); Monocytes Absolute Auto 1.2 K/mm3 (0.1-0.6); Monocytes Percent Auto 10.1 % (2.6-8.5); Neutrophils Absolute Auto 6.9 K/mm3 (1.3-6.7); Neutrophils Percent Auto 57.4 % (45.5-73.1); Platelet Count Result 302 k/mm3 (150-375); Red Blood Count 4.47 M/mm3 (4.2-5.4); Red Cell Distribution Width 15.9 % (11.5-14.5)
[2022-05-13 06:12] LABS: Alanine Aminotransferase 15 U/L (6-35); Alkaline Phosphatase 90 U/L (38-126); Anion Gap 6 mmol/L (8-16); Aspartate Amino Transferase 24 U/L (14-36); Bilirubin,Total 0.1 mg/dL (0.2-1.3); Blood Urea Nitrogen 76 mg/dL (7-17); Calcium 7.7 mg/dL (8.4-10.2); Carbon Dioxide 29 mmol/L (22-30); Chloride 94 mmol/L (98-107); Estimated CRCL calculation 38 ml/min; Estimated Glomerular Filt Rate 26; Glucose 171 mg/dL (65-110); Magnesium 1.7 mg/dL (1.6-2.3); Potassium 3.4 mmol/L (3.4-5.0); Sodium 129 mmol/L (137-145)
[2022-05-13] MEDS: hydrALAZINE HCL 25 MG TABLET 75 MG PO ×3 (06:22→21:15)
[2022-05-13 09:00] LABS: Glucose Point of Care 171 mg/dl (65-105)
[2022-05-13] MEDS: FUROSEMIDE 40 MG TABLET PO (09:25)
[2022-05-13] MEDS: MULTIVITAMINS /C LUTEIN (CENTRUM SILVER) TABLET *BKC 1 TAB PO (09:25)
[2022-05-13] MEDS: ASPIRIN 81 MG ENTERIC TABLET PO (09:25)
[2022-05-13] MEDS: CHOLECALCIFEROL 1,000 UNITS TABLET 2000 UNITS PO (09:25)
[2022-05-13] MEDS: FERROUS SULFATE 324 MG TABLET PO ×2 (09:25→17:28)
[2022-05-13] MEDS: amLODIPine BESYLATE 5 MG TABLET 10 MG PO (09:25)
[2022-05-13] MEDS: carvediloL 25 MG TABLET PO ×2 (09:25→17:29)
[2022-05-13] MEDS: ESCITALOPRAM OXALATE 10 MG TABLET PO (09:25)
[2022-05-13] MEDS: ASCORBIC ACID 500 MG TABLET PO ×2 (09:27→17:28)
[2022-05-13] MEDS: GABAPENTIN 400 MG CAPSULE PO ×3 (09:27→17:28)
[2022-05-13] MEDS: COLLAGENASE OINT 30 GM TUBE 1 APPLIC TOPICAL (09:28)
[2022-05-13] MEDS: TOLNAFTATE 1% POWDER 45 GM BTL 1 APPLIC TOPICAL ×2 (09:28→21:16)
[2022-05-13] MEDS: INSULIN ASPART (*BKC) 100 UNITS/ML SUB-Q ×5 (09:37→17:39)
[2022-05-13] MEDS: QUEtiapine FUMARATE 12.5 MG TABLET PO (10:12)
--- NOTE | 2022-05-13 10:31 | P.PNNP_ITS ---
Progress Note: A&P Assessment and Plan (1) CHRIS (acute kidney injury): Code(s): N17.9 - Acute kidney failure, unspecified Status: Acute Assessment and Plan: * creatinine relatively stable if not slow improvement * suspect her wounds and infection issues may be causing some fluctuations * given low sodium and good urine output, d/c'd metolazone * follow repeat labs and UOP (2) Stage 3b chronic kidney disease: Code(s): N18.32 - Chronic kidney disease, stage 3b Status: Chronic Assessment and Plan: * baseline creatinine has fluctuated from 1.5 - 2.1mg/dl * this has been present since at least 2019 if not longer * presumably secondary to diabetes, hypertension, vascular disease, and CONNOR (3) Cellulitis and abscess of buttock: Code(s): L02.31 - Cutaneous abscess of buttock; L03.317 - Cellulitis of buttock Status: Acute Assessment and Plan: * cultures noted * on antibiotics (4) Vulvar lesion: Code(s): N90.89 - Other specified noninflammatory disorders of vulva and perineum Status: Acute Assessment and Plan: * 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 * 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, with focal microinvasion * will need outpatient follow-up (5) Pressure ulcer of right heel: Code(s): L89.619 - Pressure ulcer of right heel, unspecified stage Status: Chronic Assessment and Plan: * Group G Streptococcus grew on wound culture from right heel * Surgery following * s/p debridement (on 05/09/22) * local wound care (6) Hypertension: Code(s): I10 - Essential (primary) hypertension Status: Chronic Assessment and Plan: * reasonable control at this time * follow trend of hemodynamics (7) Insulin dependent type 2 diabetes mellitus: Code(s): E11.9 - Type 2 diabetes mellitus without complications; Z79.4 - terminal operator (current) use of insulin Status: Chronic Assessment and Plan: * follow accuchecks * glycemic control Not much else to say given relative stability in renal funciton -- will continue to follow intermittently. Subjective Date/time seen: 05/13/22 10:31 No new issues or problems to report; feels reasonably well; tolerating IV antibiotic therapy; no other acute issues/events overnight or earlier this morning; renal function remains relatively stable with good urine output noted. Exam Narrative: General: WD/WN female in NAD Heart: normal S1 and S2; no rub Lungs: clear to auscultation Abdomen: soft, nontender, nondistended, positive bowel sounds Extremities: no cyanosis or clubbing; no edema Skin: right heel dressings Objective Data Vital Signs Vital Signs: Vital Signs Temp Pulse Resp BP Pulse Ox O2 Del Method 05/13/22 08:00 69 05/13/22 09:25 71 05/13/22 04:00 71 05/13/22 00:00 69 05/12/22 20:00 Room Air 05/12/22 20:00 72 05/12/22 21:44 98.1 F 84 16 130/74 98 05/12/22 17:36 71 05/12/22 14:00 97.6 F 67 16 91 05/12/22 16:00 72 05/12/22 12:00 69 Intake/Output Intake/Output: Intake & Output 05/10/22 05/11/22 05/12/22 05/13/22 23:59 23:59 23:59 23:59 Intake Total 1660 1070 960 Ou
--- NOTE | 2022-05-13 10:31 | PM.PNNEP ---
Progress Note: A&P Assessment and Plan (1) CHRIS (acute kidney injury): Code(s): N17.9 - Acute kidney failure, unspecified Status: Acute Assessment and Plan: creatinine relatively stable if not slow improvement suspect her wounds and infection issues may be causing some fluctuations given low sodium and good urine output, d/c'd metolazone follow repeat labs and UOP (2) Stage 3b chronic kidney disease: Code(s): N18.32 - Chronic kidney disease, stage 3b Status: Chronic Assessment and Plan: baseline creatinine has fluctuated from 1.5 - 2.1mg/dl this has been present since at least 2019 if not longer presumably secondary to diabetes, hypertension, vascular disease, and CONNOR (3) Cellulitis and abscess of buttock: Code(s): L02.31 - Cutaneous abscess of buttock; L03.317 - Cellulitis of buttock Status: Acute Assessment and Plan: cultures noted on antibiotics (4) Vulvar lesion: Code(s): N90.89 - Other specified noninflammatory disorders of vulva and perineum Status: Acute Assessment and Plan: 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, with focal microinvasion will need outpatient follow-up (5) Pressure ulcer of right heel: Code(s): L89.619 - Pressure ulcer of right heel, unspecified stage Status: Chronic Assessment and Plan: Group G Streptococcus grew on wound culture from right heel Surgery following s/p debridement (on 05/09/22) local wound care (6) Hypertension: Code(s): I10 - Essential (primary) hypertension Status: Chronic Assessment and Plan: reasonable control at this time follow trend of hemodynamics (7) Insulin dependent type 2 diabetes mellitus: Code(s): E11.9 - Type 2 diabetes mellitus without complications; Z79.4 - vermin exterminator (current) use of insulin Status: Chronic Assessment and Plan: follow accuchecks glycemic control Not much else to say given relative stability in renal funciton -- will continue to follow intermittently. Subjective Date/time seen: 05/13/22 10:31 No new issues or problems to report; feels reasonably well; tolerating IV antibiotic therapy; no other acute issues/events overnight or earlier this morning; renal function remains relatively stable with good urine output noted. Exam Narrative: General: WD/WN female in NAD Heart: normal S1 and S2; no rub Lungs: clear to auscultation Abdomen: soft, nontender, nondistended, positive bowel sounds Extremities: no cyanosis or clubbing; no edema Skin: right heel dressings Objective Data Vital Signs Vital Signs: Vital Signs Temp Pulse Resp BP Pulse Ox O2 Del Method 05/13/22 08:00 69 05/13/22 09:25 71 05/13/22 04:00 71 05/13/22 00:00 69 05/12/22 20:00 Room Air 05/12/22 20:00 72 05/12/22 21:44 98.1 F 84 16 130/74 98 05/12/22 17:36 71 05/12/22 14:00 97.6 F 67 16 91 05/12/22 16:00 72 05/12/22 12:00 69 Intake/Output Intake/Output: Intake & Output 05/10/22 05/11/22 05/12/22 05/13/22 23:59 23:59 23:59 23:59 Intake Total 1660 1070 960 Output Total 1450 3500 3495 1999 Balance 210 -9936 -1566 -1999 Meds/Results Medications: Active Medications Generic Name Dose Route Start Last Admin Trade Name Freq PRN Reason Stop Dose Admin Acetaminophen 650 mg 05/02/22 22:18 05/07/22 09:59 Acetaminophen 325 Mg Tablet PO 650 mg Q4H PRN Administration Mild Pain (1-3) or Fever Hydrocodone Bitart/Acetaminophen 1 tab 05/07/22 16:34 05/13/22 01:39 Hydrocodone/Acetaminophen (*Crx) 5-325 Mg Tablet PO 1 tab Q4H PRN Administration Pain Rated 4-6 Albuterol 2.5 mg 05/02/22 00:34 Albuterol Sulfate Neb 2.5 Mg/3 Ml Inh INHALATION Q6HRT PRN Shortness Of Breath Amlodipine Besylate 10 mg 05/03/22 09:00 05/13/22 09:25
[2022-05-13 13:00] LABS: Glucose Point of Care 232 mg/dl (65-105)
--- NOTE | 2022-05-13 16:33 | PM.IMPN ---
Progress Note: A&P Assessment and Plan (1) Cellulitis and abscess of buttock: Code(s): L02.31 - Cutaneous abscess of buttock; L03.317 - Cellulitis of buttock Status: Acute Assessment and Plan: 1 of 2 blood cultures, as well as the wound culture, were positive for group G Streptococcus One blood culture showed Staphylococcus epidermis, another had staphylococcal hominis, suspect contaminant Sens showed resistance to rocephin, will switch to IV doxycycline, d/c flagyl Repeat blood cultures No growth to date For group G Streptococcus penicillin is drug of choice. Will switch him back to Rocephin 2 g every day Group G Streptococcus grew on wound culture from both right heel as well as sacrum. Underwent debridement of right heel 05/09/2022 General surgery consulted. Appreciate his recommendations. Continue ceftriaxone 2 g daily. Negative blood culture on 05/06/2022. Need 6 weeks antibiotics due to underlying osteomyelitis. Can change to oral antibiotics. For the full course. Will continue ceftriaxone while here. Switched to oral Augmentin and doxycycline for the full course has discussed with ID pharmacist. 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 Now having bleeding likely from the biopsy area Appreciated gynecology help To OR to stop bleeding if needed planned Monitor H&H and remained stable Vaginal bleed has stopped (3) Acute and chronic respiratory failure: Qualifiers: Respiratory failure complication: hypoxia and hypercapnia Qualified Code(s): J96.21 - Acute and chronic respiratory failure with hypoxia; J96.22 - Acute and chronic respiratory failure with hypercapnia Code(s): J96.20 - Acute and chronic respiratory failure, unspecified whether with hypoxia or hypercapnia Status: Acute Assessment and Plan: Stable (4) CHF exacerbation: Qualifiers: Heart failure type: diastolic Qualified Code(s): I50.33 - Acute on chronic diastolic (congestive) heart failure Code(s): I50.9 - Heart failure, unspecified Status: Acute Assessment and Plan: Euvolemic, continue home meds (5) Uncontrolled stage 2 hypertension: Code(s): I10 - Essential (primary) hypertension Status: Acute Assessment and Plan: Stable (6) Chronic renal insufficiency: Qualifiers: Chronic kidney disease stage: stage 3 (moderate) Chronic kidney disease stage 3 subtype: stage 3b (GFR 30-44) Qualified Code(s): N18.32 - Chronic kidney disease, stage 3b Code(s): N18.9 - Chronic kidney disease, unspecified Status: Acute Assessment and Plan: Stable, appears to have a baseline of 1.8, unsure if this is new baseline or changes need to be made to improve kidney status, nephrology consult recommendation appreciated Creatinine stable Chronic Chen (7) Insulin dependent type 2 diabetes mellitus: Code(s): E11.9 - Type 2 diabetes mellitus without complications; Z79.4 - senior care (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 Will need antibiotic course for at least 6 weeks. At least 10 days of IV antibiotics due to bacteremia switched to Augmentin doxycycline at discharge. Continue on antibiotics as ordered. (9) Pressure ulcer, heel, left, unstageab
[2022-05-13] MEDS: cefTRIAXone 2 GM in SODIUM CHLORIDE 0.9% IV 100 ML 200 ML IVPB (17:29)
[2022-05-13 17:33] LABS: Glucose Point of Care 238 mg/dl (65-105)
[2022-05-13 20:04] LABS: Glucose Point of Care 306 mg/dl (65-105)
[2022-05-13] MEDS: OLANZapine 5 MG TABLET PO (21:15)
[2022-05-13] MEDS: QUEtiapine FUMARATE XR 50 MG TAB.ER.24H 150 MG PO (21:15)
[2022-05-13] MEDS: ATORVASTATIN 40 MG TABLET PO (21:15)
[2022-05-13] MEDS: hydrOXYzine HCL 25 MG TABLET PO (21:15)
[2022-05-13] MEDS: INSULIN GLARGINE (*BKC) 100 UNITS/ML 20 UNITS SUB-Q (21:16)
[2022-05-14 05:51] LABS: Basophils Absolute Auto 0.2 K/mm3 (0.0-0.1); Basophils Percent Auto 1.4 % (0.2-1.2); Eosinophils Absolute Auto 0.5 K/mm3 (0-0.3); Eosinophils Percent Auto 4.6 % (0-4.4); Hematocrit 40.2 % (37.0-47.0); Hemoglobin 12.3 g/dL (12.0-15.0); Immature Granulocyte Absolute 0.09 K/mm3 (0.00-0.031); Immature Granulocyte Percent A 0.8 % (0-0.5); Lymphocytes Absolute Auto 2.68 K/mm3 (0.9-3.2); Mean Corpuscular HGB Conc 30.6 g/dl (32-36); Mean Corpuscular Hemoglobin 27.1 pg (26-34); Mean Corpuscular Volume 88.5 fl (80-100); Mean Platelet Volume 9.9 fl (7.4-10.4); Monocytes Absolute Auto 1.1 K/mm3 (0.1-0.6); Monocytes Percent Auto 10.1 % (2.6-8.5); Neutrophils Absolute Auto 6.2 K/mm3 (1.3-6.7); Neutrophils Percent Auto 58.1 % (45.5-73.1); Platelet Count Result 290 k/mm3 (150-375); Red Blood Count 4.54 M/mm3 (4.2-5.4); Red Cell Distribution Width 16.1 % (11.5-14.5); White Blood Count 10.7 K/mm3 (4.5-10.0)
[2022-05-14 05:58] LABS: Alanine Aminotransferase 17 U/L (6-35); Albumin Level 3.1 g/dL (3.5-5.1); Alkaline Phosphatase 82 U/L (38-126); Anion Gap 7 mmol/L (8-16); Aspartate Amino Transferase 27 U/L (14-36); Bilirubin,Total 0.3 mg/dL (0.2-1.3); Blood Urea Nitrogen 76 mg/dL (7-17); Calcium 7.6 mg/dL (8.4-10.2); Carbon Dioxide 30 mmol/L (22-30); Chloride 93 mmol/L (98-107); Estimated CRCL calculation 38 ml/min; Estimated Glomerular Filt Rate 26; Glucose 211 mg/dL (65-110); Magnesium 1.7 mg/dL (1.6-2.3); Potassium 3.5 mmol/L (3.4-5.0); Sodium 130 mmol/L (137-145)
[2022-05-14 06:00] VITALS: BP 145/74; PULSE 67; RESP 18; TEMP 36.6; O2SAT 94
[2022-05-14] MEDS: hydrALAZINE HCL 25 MG TABLET 75 MG PO ×2 (06:02→13:07)
[2022-05-14] MEDS: HYDROcodone/acetaminophen (*CRX) 5-325 MG TABLET 1 TAB PO ×2 (06:04→15:08)
[2022-05-14 09:20] LABS: Glucose Point of Care 256 mg/dl (65-105)
[2022-05-14] MEDS: MULTIVITAMINS /C LUTEIN (CENTRUM SILVER) TABLET *BKC 1 TAB PO (09:23)
[2022-05-14] MEDS: CHOLECALCIFEROL 1,000 UNITS TABLET 2000 UNITS PO (09:23)
[2022-05-14] MEDS: GABAPENTIN 400 MG CAPSULE PO ×2 (09:23→13:07)
[2022-05-14] MEDS: FERROUS SULFATE 324 MG TABLET PO (09:23)
[2022-05-14] MEDS: ASPIRIN 81 MG ENTERIC TABLET PO (09:23)
[2022-05-14] MEDS: QUEtiapine FUMARATE 12.5 MG TABLET PO (09:23)
[2022-05-14] MEDS: amLODIPine BESYLATE 5 MG TABLET 10 MG PO (09:23)
[2022-05-14] MEDS: ESCITALOPRAM OXALATE 10 MG TABLET PO (09:23)
[2022-05-14] MEDS: ASCORBIC ACID 500 MG TABLET PO (09:23)
[2022-05-14] MEDS: TOLNAFTATE 1% POWDER 45 GM BTL 1 APPLIC TOPICAL (09:24)
[2022-05-14] MEDS: COLLAGENASE OINT 30 GM TUBE 1 APPLIC TOPICAL (09:24)
[2022-05-14] MEDS: FUROSEMIDE 40 MG TABLET PO (09:24)
[2022-05-14] MEDS: SOD HYPOCHLORITE 1/4 STRENGTH 473 ML 1 APPLIC TOPICAL (09:25)
[2022-05-14] MEDS: INSULIN ASPART (*BKC) 100 UNITS/ML SUB-Q ×4 (09:25→13:09)
[2022-05-14 09:27] VITALS: PULSE 72
[2022-05-14] MEDS: carvediloL 25 MG TABLET PO (09:27)
[2022-05-14] MEDS: POTASSIUM CHLORIDE 20 MEQ PACKET (FOR LIQUID) 40 MEQ PO ×2 (09:34)
[2022-05-14 12:32] LABS: Glucose Point of Care 233 mg/dl (65-105)
[2022-05-14] MEDS: LIDOCAINE HCL 2% JELLY 5 ML TUBE 1 APPLIC TOPICAL (13:07)
[2022-05-14 13:50] VITALS: BP 126/53; PULSE 92; RESP 16; TEMP 36.8; O2SAT 98
--- NOTE | 2022-05-14 14:39 | PM.DS ---
DS: Admitting Diagnosis Discharge Date 05/14/2022 Admitting Diagnosis Multiple complaints DS: Discharge Diagnosis Discharge Diagnosis (1) Cellulitis and abscess of buttock: Code(s): L02.31 - Cutaneous abscess of buttock; L03.317 - Cellulitis of buttock Status: Acute Assessment and Plan: 1 of 2 blood cultures, as well as the wound culture, were positive for group G Streptococcus One blood culture showed Staphylococcus epidermis, another had staphylococcal hominis, suspect contaminant Sens showed resistance to rocephin, will switch to IV doxycycline, d/c flagyl Repeat blood cultures No growth to date For group G Streptococcus penicillin is drug of choice. Will switch him back to Rocephin 2 g every day Group G Streptococcus grew on wound culture from both right heel as well as sacrum. Underwent debridement of right heel 05/09/2022 General surgery consulted. Appreciate his recommendations. Continue ceftriaxone 2 g daily. Negative blood culture on 05/06/2022. Need 6 weeks antibiotics due to underlying osteomyelitis. Can change to oral antibiotics. For the full course. Will continue ceftriaxone while here. Switched to oral Augmentin and doxycycline for the full course has discussed with ID pharmacist. 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 Now having bleeding likely from the biopsy area Appreciated gynecology help To OR to stop bleeding if needed planned Monitor H&H and remained stable Vaginal bleed has stopped (3) Acute and chronic respiratory failure: Qualifiers: Respiratory failure complication: hypoxia and hypercapnia Qualified Code(s): J96.21 - Acute and chronic respiratory failure with hypoxia; J96.22 - Acute and chronic respiratory failure with hypercapnia Code(s): J96.20 - Acute and chronic respiratory failure, unspecified whether with hypoxia or hypercapnia Status: Acute Assessment and Plan: Stable (4) CHF exacerbation: Qualifiers: Heart failure type: diastolic Qualified Code(s): I50.33 - Acute on chronic diastolic (congestive) heart failure Code(s): I50.9 - Heart failure, unspecified Status: Acute Assessment and Plan: Euvolemic, continue home meds (5) Uncontrolled stage 2 hypertension: Code(s): I10 - Essential (primary) hypertension Status: Acute Assessment and Plan: Stable (6) Chronic renal insufficiency: Qualifiers: Chronic kidney disease stage: stage 3 (moderate) Chronic kidney disease stage 3 subtype: stage 3b (GFR 30-44) Qualified Code(s): N18.32 - Chronic kidney disease, stage 3b Code(s): N18.9 - Chronic kidney disease, unspecified Status: Acute Assessment and Plan: Stable, appears to have a baseline of 1.8, unsure if this is new baseline or changes need to be made to improve kidney status, nephrology consult recommendation appreciated Creatinine stable Chronic Chen (7) Insulin dependent type 2 diabetes mellitus: Code(s): E11.9 - Type 2 diabetes mellitus without complications; Z79.4 - retirement (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 Will need antibiotic course for at least 6 weeks. At least 10 days of IV antibiotics due to bacteremia switched to Augmentin doxyc
--- NOTE | 2022-05-14 16:59 | PC.NURSE ---
Per Nephrology and Surgery, ok to be discharged.
[2022-05-14 17:30] LABS: Glucose Point of Care 237 mg/dl (65-105)
[2022-05-14 17:50] LABS: EDCOVIDSCREEN Negative (Negative)
== END 2022-05-14 19:00 | DRG 364 ==
LOC: ANHED 18:13 → ANH3MEDSUR 20:34 → ANH3MED 05-02 00:55
PROVIDERS: Emergency Medicine; Internal Medicine; Nurse Practitioner; Obstetrics & Gynecology; Student in an Organized Health Care Education/Training Program; Surgery; Admitting Provider Internal Medicine; Emergency Provider Emergency Medicine; PCP Family Medicine; Visit Provider Family Medicine
PROC: 0UBMXZX Excision of Vulva, External Approach, Diagnostic (ICD-10-PCS; CPT 56440; principal; 2022-05-05 14:00)
PROC: 0KBV0ZZ Excision of Right Foot Muscle, Open Approach (ICD-10-PCS; principal; 2022-05-09 16:00)
DX: E11.628 Type 2 diabetes mellitus with other skin complications (principal); L89.620 Pressure ulcer of left heel, unstageable; L89.610 Pressure ulcer of right heel, unstageable; J96.21 Acute and chronic respiratory failure with hypoxia; I96 Gangrene, not elsewhere classified; N17.9 Acute kidney failure, unspecified; E11.22 Type 2 diabetes mellitus with diabetic chronic kidney disease; N18.32 Chronic kidney disease, stage 3b; E11.40 Type 2 diabetes mellitus with diabetic neuropathy, unspecified; I13.0 Hypertensive heart and chronic kidney disease with heart failure and stage 1 through stage 4 chronic kidney disease, or unspecified chronic kidney disease; I50.32 Chronic diastolic (congestive) heart failure; L03.317 Cellulitis of buttock; G47.33 Obstructive sleep apnea (adult) (pediatric); R07.9 Chest pain, unspecified; J44.9 Chronic obstructive pulmonary disease, unspecified; J96.22 Acute and chronic respiratory failure with hypercapnia; Z79.4 Long term (current) use of insulin; N90.89 Other specified noninflammatory disorders of vulva and perineum; Z20.822 Contact with and (suspected) exposure to COVID-19; E66.01 Morbid (severe) obesity due to excess calories; Z68.42 Body mass index [BMI] 45.0-49.9, adult; F17.210 Nicotine dependence, cigarettes, uncomplicated; Z74.01 Bed confinement status; Z79.82 Long term (current) use of aspirin; Z79.51 Long term (current) use of inhaled steroids; Z79.899 Other long term (current) drug therapy; Z83.3 Family history of diabetes mellitus; Z82.49 Family history of ischemic heart disease and other diseases of the circulatory system
CPT/HCPCS: 36415; 71045; 73630; 74176; 80048; 80053; 80202; 81001; 82948; 83036; 83605; 83690; 83735; 83935; 84100; 84300; 84443; 84484; 85025; 85055; 85610; 85730; 86140; 87040; 87070; 87077; 87086; 87088; 87147; 87186; 87205; 87426; 87491; 87591; 87636; 87661; 88304; 88342; 93005; 96361; 96365; 96366; 96367; 96368; 96375; 99285; A9270; C9803; G0378; G0379; J0690; J0692; J0696; J1100; J1170; J1815; J2250; J2270; J2405; J2704; J3010; J3370; J7030; J7120

== ENCOUNTER 2022-07-18 13:15 | Inpatient (IN) | payer OTHER, SELFPAY ==
[2022-07-18] VITALS (38 sets, daily range): BP systolic 71–149; BP diastolic 44–122; PULSE 70–89; RESP 11–23; TEMP 34.6–36.3; O2SAT 92–100
--- NOTE | ~2022-07-18 | XR_ITS ---
EXAMINATION: XR chest ET placement, XR abdomen NG/feed tube insert DATE: 07/18/2022 23:28 INDICATION: Endotracheal tube placement. Orogastric tube placement. TECHNIQUE: 1. Frontal view of the chest was obtained. 2. AP view of the abdomen was obtained. COMPARISON: Chest radiograph dated 07/18/2022 FINDINGS: Chest: Endotracheal tube tip 2.3 cm above the harris. Right upper extremity peripherally inserted central ve nous catheter (PICC) tip at the mid superior vena cava. Opacification of the left lower lung zone consistent with small left pleural effusion and associated retrocardiac atelectasis seen on CT from earlier in the day. Mild streaky atelectasis at the right lili ng base. No pneumothorax or evident right pleural effusion. Mild cardiomegaly. Abdomen: Nasogastric tube tip in proximal side port in the body of the stomach. The right abdomen, left lower quadrant and pelvis are excluded from the [id number]. IMPRESSION: 1. Endotracheal tube, nasogastric tube and right PICC line all in expected positions. 2. Small left pleural effusion with bibasilar atelectasis, left greater than right. Reviewed, dictated and finalized at location A. ARE INTERVIEWER IMPRESSION: 1. Endotracheal tube, nasogastric tube and right PICC line all in expected posi tions. 2. Small left pleural effusion with bibasilar atelectasis, left greater than ri ght.
--- NOTE | ~2022-07-18 | XR_ITS ---
EXAMINATION: XR foot LT 2V DATE: 07/18/2022 15:05 INDICATION: Deep pressure sores TECHNIQUE: Dorsoplantar and lateral views of the left foot were obtained. COMPARISON: None. FINDINGS: Diffuse osteopenia. Alignment is normal. No fracture. Mild osteoarthritis of the fifth tarsal metatar rosa, metatarsophalangeal and interphalangeal joints. Moderate-sized plantar calcaneal spur. No cortic al erosions or osteolysis to suggest osteomyelitis. No left ankle joint effusion. No soft tissue gas. IMPRESSION: 1. Mild polyarticular osteoarthritis in the mid and forefoot and moderate-sized plantar calcaneal spu r. No osteomyelitis or other acute osseous abnormality.. Reviewed, dictated and finalized at location A. NE SPECIALIST IMPRESSION: 1. Mild polyarticular osteoarthritis in the mid and forefoot and moderate-sized plantar calcaneal spur. No osteomyelitis or other acute osseous abnormality..
--- NOTE | ~2022-07-18 | XR_ITS ---
EXAMINATION: XR chest 1V portable DATE: 07/19/2022 05:44 INDICATION: Intubation TECHNIQUE: frontal view of the chest was obtained. COMPARISON: Chest radiograph dated 07/18/2022 FINDINGS: Endotracheal tube tip 2.2 cm above the harris. Nasogastric tube extends below the left hemidiaphragm with distal tip collimated off the study. Right upper extremity peripherally inserted central venous catheter (PICC) tip at the mid superior vena cava. Persistent opacities in the left mid to lower lung zone with Hypaque costophrenic angle consistent wi th small left pleural effusion and associated atelectasis and/or pneumonia. Cardiomegaly. Dense brii l annular calcification. IMPRESSION: 1. Small left pleural effusion with associated atelectasis/or pneumonia in the mid to lower lung zone s. Reviewed, dictated and finalized at location A. PROGRAMMER ANALYST IMPRESSION: 1. Small left pleural effusion with associated atelectasis/or pneumonia in the mid to lower lung zones.
--- NOTE | ~2022-07-18 | US_ITS ---
EXAMINATION: US renal BI DATE: 07/19/2022 09:24 INDICATION: Acute kidney injury TECHNIQUE: Multiple ultrasound grayscale images of the kidneys were obtained. COMPARISON: CT dated 07/18/2022 FINDINGS: The right kidney measures 12.2 x 5.9 x 5.9 cm. The left kidney measures 11.5 x 6.5 x 5.3 cm. The kidn eys demonstrate normal echogenicity. There is no hydronephrosis in either kidney. No stones identifi ed. The bladder is nonvisualized, likely decompressed with a Chen catheter in place.. IMPRESSION: 1. Normal kidneys without hydronephrosis. Reviewed, dictated and finalized at location A. FACTURING ENGINEERING INTERN
--- NOTE | ~2022-07-18 | XR_ITS ---
XR foot RT 2V DATE: 07/18/2022 15:05 INDICATION: Deep pressure sores of the heels TECHNIQUE: AP and lateral views COMPARISON: 05/10/2022 right foot FINDINGS: There are widely large soft tissue ulceration with exposure of the posterior inferior calca neus suggestion of some posterior inferior calcaneal bone destruction suggesting osteomyelitis. Diffuse osteopenia. Extensive arterial calcifications including metatarsal artery and digital artery calcifications, like ly due to diabetes. IMPRESSION: Large 2-D pressure ulcer at the posterior heel with exposure of the calcaneus probable ca lcaneal osteomyelitis Osteopenia Extensive arterial calcification, suggesting diabetes Reviewed, dictated and finalized at location B. UCTION CONTROL EXPEDITER IMPRESSION: Large 2-D pressure ulcer at the posterior heel with exposure of the calcaneus probable calcaneal osteomyelitis Osteopenia Extensive arterial calcification, suggesting diabetes
--- NOTE | ~2022-07-18 | XR_ITS ---
EXAMINATION: XR chest port-a-cath/central DATE: 07/21/2022 15:07 INDICATION: Dialysis catheter placement TECHNIQUE: frontal view of the chest was obtained. COMPARISON: Chest radiograph dated 07/21/2022 FINDINGS: Endotracheal tube tip 3.2 cm above the harris. Nasogastric tube extends below the left hemidiaphragm with distal tip collimated off the study. Right upper extremity peripherally inserted central venous catheter (PICC) tip at the mid superior vena cava. Tip of a newly placed large-bore dual-lumen righ t internal jugular central venous catheter in the high right atrium. Mild opacities in the right lower lung zone. More dense consolidation in the left upper and lower kayleigh g zones with hazy opacities in the remaining aerated left midlung zone. No pneumothorax or right-side d pleural effusion. Mild cardiomegaly. Mitral annular calcification. IMPRESSION: 1. Lines and tubes in expected position as detailed above. 2. Increasing dense opacities in the left lung most dense in the upper and lower lung zones likely re presenting a small to moderate-sized left pleural effusion with associated atelectasis and/or pneumon ia. 2. Increasing opacity right lower lung zone which could also represent atelectasis or pneumonia. 3. Mild cardiomegaly. Reviewed, dictated and finalized at location B. IMPRESSION: 1. Lines and tubes in expected position as detailed above. 2. Increasing dense opacities in the left lung most dense in the upper and lowe r lung zones likely representing a small to moderate-sized left pleural effusio n with associated atelectasis and/or pneumonia. 2. Increasing opacity right lower lung zone which could also represent atelecta sis or pneumonia. 3. Mild cardiomegaly.
--- NOTE | ~2022-07-18 | XR_ITS ---
XR chest 1V DATE: 07/18/2022 15:05 INDICATION: Altered mental state. Bilateral open hands of the heels TECHNIQUE: AP chest COMPARISON: 07/18/2021 CT chest abdomen pelvis 05/01/2022 portable AP chest FINDINGS: Cardiomegaly. Mild pulmonary vascular congestion is suggested. Mild infiltrate or atelectas is in the lower lung zones, left greater than right. Mild left pleural effusion. Diffuse osteopenia. IMPRESSION: Cardiomegaly, mild pulmonary vascular congestion Bilateral lower lung infiltrate and/atelectasis, mild left pleural effusion Reviewed, dictated and finalized at location B. R SEALER
--- NOTE | ~2022-07-18 | XR_ITS ---
Portable chest x-ray Comparison: 07/22/2022 Clinical History: Tube placement Findings: Endotracheal tube, NG tube, and 2 right-sided central venous lines are in satisfactory pos itions. Moderate left pleural effusion is present. There is central congestive change and mild pulmon aminata edema. Cardiomediastinal silhouette is stable. Bones and soft tissues are unremarkable. Impression: Support tubes, as above. Moderate left pleural effusion. Central congestive change and mild pulmonary edema. Reviewed, dictated and finalized at location . Impression: Support tubes, as above. Moderate left pleural effusion. Central congestive change and mild pulmonary edema.
--- NOTE | ~2022-07-18 | XR_ITS ---
EXAMINATION: XR barium swallow modified DATE: 07/24/2022 14:24 INDICATION: Recent intubation. TECHNIQUE: The patient was given barium-containing material of multiple consistencies to swallow by t keeley speech pathologist while I performed fluoroscopy. Fluoroscopy exposure time was 0.8 minutes. The n umber of fluoroscopy images saved to the PACS was 1. Dose-area product was 1.218 Gy-cm^2. FINDINGS: There is spillage of liquids to the vallecula and piriform sinuses immediately prior to the swallow. There is no laryngeal penetration or aspiration. IMPRESSION: 1. No laryngeal penetration or aspiration. 2. Please refer to the speech therapy report for recommendations. Reviewed, dictated and finalized at location A.
--- NOTE | ~2022-07-18 | XR_ITS ---
EXAMINATION: XR chest 1V portable DATE: 07/20/2022 05:56 INDICATION: Intubated TECHNIQUE: frontal view of the chest was obtained. COMPARISON: Chest radiograph dated 07/19/2022 FINDINGS: Endotracheal tube tip 2.1 cm above the harris. Nasogastric tube extends below the left hemidiaphragm with distal tip collimated off the study. Right upper extremity peripherally inserted central venous catheter (PICC) tip at the superior vena cava. Gradient of lower lung predominant hazy airspace opacity in the left lung with more dense consolidati on in the left lower lung zone. Increasing opacities in the right lower lung zone with obscuration of the right hemidiaphragm. No pneumothorax. Likely with dense mitral annular calcification. IMPRESSION: 1. Increasing bilateral lung disease, left greater than right, most likely representing atelectasis a nd/or pneumonia superimposed over small bilateral pleural effusions. 2. Cardiomegaly. Reviewed, dictated and finalized at location A. IMPRESSION: 1. Increasing bilateral lung disease, left greater than right, most likely repr esenting atelectasis and/or pneumonia superimposed over small bilateral pleural effusions. 2. Cardiomegaly.
--- NOTE | ~2022-07-18 | XR_ITS ---
Portable chest x-ray Comparison: 07/21/2022 Clinical History: Respiratory failure Findings: Endotracheal tube, NG tube, and 2 right-sided central venous lines are in place. Moderate left pleural effusion is present. There is central congestive change. Cardiomediastinal silhouette i s stable. Bones and soft tissues are unremarkable. Impression: Moderate left pleural effusion. Central congestive changes. Support tubes, as above. Reviewed, dictated and finalized at location . Impression: Moderate left pleural effusion. Central congestive changes. Support tubes, as above.
--- NOTE | ~2022-07-18 | CT_ITS ---
EXAMINATION: CT brain wo con DATE: 07/18/2022 14:56 INDICATION: Altered mental status. Lethargy. TECHNIQUE: Computed tomography (CT) of the head was performed without intravenous contrast. The mA wa s adjusted according to patient size. Iterative reconstruction technique was employed. Exam dose: 12 86.33 mGy-cm total exam DLP. COMPARISON: September 03, 2021 CT brain FINDINGS: Cerebral atherosclerotic calcification. There is nonspecific diminished attenuation of the cerebral white matter, likely due to chronic small vessel ischemic changes. Soft tissue detail is limited in the posterior fossa on 2 sets of images. Otherwise no intracranial m ass lesion or hemorrhage or cerebrovascular accident is evident. No midline shift or mass effect. No subdural or epidural hematoma is detected. There is limited development of the mastoid air cells bilaterally, left mastoid effusions. The parana rosa sinuses are normally developed and aerated. No fracture or bone destruction of the cranial vault. IMPRESSION: Limited examination of posterior fossa Cerebral atherosclerosis and chronic small vessel ischemic changes of the cerebral white matter No apparent acute intracranial finding Reviewed, dictated and finalized at Location A. Reviewed, dictated and finalized at location B. ALK DEVELOPER IMPRESSION: Limited examination of posterior fossa Cerebral atherosclerosis and chronic small vessel ischemic changes of the cereb ral white matter No apparent acute intracranial finding
--- NOTE | ~2022-07-18 | XR_ITS ---
Portable chest x-ray Comparison: 07/20/2022 Clinical History: Respiratory failure Findings: Endotracheal tube, NG tube, and right-sided PICC line are in place. There is extensive haz y left lung airspace consolidation with possible small left pleural effusion. Minimal haziness right lung base noted. Cardiomediastinal silhouette is stable. Bones and soft tissues are unremarkable. Impression: Stable support tubes. Extensive hazy left lung airspace disease, suggestive of asymmetric pulmonary edema versus pneumonia. Minimal haziness right lung base, nonspecific. Probable small left pleural effusion. Reviewed, dictated and finalized at location . Impression: Stable support tubes. Extensive hazy left lung airspace disease, suggestive of asymmetric pulmonary e iker versus pneumonia. Minimal haziness right lung base, nonspecific. Probable small left pleural effusion.
--- NOTE | ~2022-07-18 | CT_ITS ---
EXAMINATION: CT chest abdomen pelvis wo con DATE: 07/18/2022 14:56 INDICATION: Sepsis TECHNIQUE: Computed tomography (CT) of the chest, abdomen and pelvis was performed without intravenou s contrast. Automated exposure control and iterative reconstruction technique were employed. Exam dos e: 1871.49 mGy-cm total exam DLP. COMPARISON: 05/01/2022 portable AP chest 05/01/2022 CT abdomen pelvis 11/03/2021 CT chest FINDINGS: There is subcutaneous emphysema of the superomedial right chest wall. Right upper extremity PIC catheter tip at the very proximal aspect of superior vena cava. No other tu bes or lines. Diffuse patchy bilateral groundglass density of the lungs suggesting small airways disease, atelectas is. Bilateral lower lobe discoid atelectasis and/or scarring. Mild left pleural effusion with depende nt left lower lobe infiltrate/atelectasis. Cardiomegaly. No pericardial effusion. Coronary artery, aortic and great vessel calcification. No tho racic aortic aneurysm. No hilar or mediastinal mass lesion or lymphadenopathy. There is extensive calcification of the wall of the gallbladder (porcelain gallbladder). No hepatic, splenic, pancreatic, adrenal or renal space-occupying mass lesion is evident on this limited noncontr ast examination. No bile duct or pancreatic duct dilatation. No urinary tract calculus or hydroureteronephrosis. There is a Chen catheter mild accumulation withi n the evacuated urinary bladder. The uterus and adnexal areas are unremarkable. There is atherosclerotic calcification but normal caliber of the abdominal aorta. No intraperitoneal or retroperitoneal or pelvic mass lesion or adenopathy or ascites is noted. Left colostomy. Normal ap pendix. No bowel obstruction or intraperitoneal free air. No suspicious osteolytic or osteoblastic lesions are noted. IMPRESSION: Focal subcutaneous emphysema of superomedial right chest wall Right upper extremity PIC catheter in very proximal superior vena cava Diffuse patchy groundglass density of the lungs suggesting small airways disease Bilateral lower lobe atelectasis/infiltrate Cardiomegaly Porcelain gallbladder Left colostomy; no bowel obstruction Reviewed, dictated and finalized at Location A. Reviewed, dictated and finalized at location B. F OF HARBOR PATROL IMPRESSION: Focal subcutaneous emphysema of superomedial right chest wall Right upper extremity PIC catheter in very proximal superior vena cava Diffuse patchy groundglass density of the lungs suggesting small airways diseas e Bilateral lower lobe atelectasis/infiltrate Cardiomegaly Porcelain gallbladder Left colostomy; no bowel obstruction
--- NOTE | 2022-07-18 13:22 | ECG_ITS ---
Measurements Intervals [place] Rate: 69 P: -15 [place]: 187 QRS: -81 QRSD: 108 T: 20 QT: 424 QTc: 456 Interpretive Statements SINUS RHYTHM LEFT AXIS DEVIATION [QRS AXIS < -30] LOW QRS VOLTAGE IN LIMB LEADS CONSIDER ANTEROSEPTAL INFARCT, AGE INDETERMINATE CONSIDER INFERIOR INFARCT, AGE INDETERMINATE BASELINE ARTIFACT- I, II, AVR, AVL, AVF ABNORMAL ECG COMPARED TO ECG 05/01/2022 16:27:03 NO SIGNIFICANT CHANGES Electronically Signed On 07-18-2022 21:00:54 [employer]ANE ASSEMBLER by Kike Barrow D.O.
--- NOTE | 2022-07-18 13:24 | ED.AMS ---
HPI - Altered Mental Status General Chief Complaint: Altered Mental Status Stated Complaint: altered mental status - low blood pressure Time Seen by Provider: 07/18/22 13:18 History of Present Illness HPI narrative: Patient is a 52-year-old female with a history of hypertension, COPD, CHF, diabetes, hyperlipidemia presenting with altered mental status. Patient resides at a nursing facility and was noted to be more lethargic than normal today. EMS was called and found her to be hypotensive with a pressure of 80/50. They report that she was vigorously responsive to painful stimuli. On arrival, the patient was somnolent but responds to verbal and painful stimuli. Moving all extremities spontaneously. Further history limited due to altered mental status. Related Data Home Medications Medication Instructions Recorded Confirmed ascorbic acid (vitamin C) 500 mg 500 mg PO BID 08/03/21 07/18/22 tablet aspirin 81 mg tablet,delayed 81 mg PO DAILY ##0 08/03/21 07/18/22 release (Adult Low Dose Aspirin) atorvastatin 40 mg tablet 40 mg PO HS 08/03/21 07/18/22 carvedilol 25 mg tablet 25 mg PO BID 08/03/21 07/18/22 cholecalciferol (vitamin D3) 25 50 mcg PO DAILY 08/03/21 07/18/22 mcg (1,000 unit) tablet clonidine 0.2 mg/24 hr weekly 1 patch transdermal WEEKLY 08/03/21 07/18/22 transdermal patch escitalopram oxalate 10 mg tablet 10 mg PO DAILY 08/03/21 07/18/22 hydroxyzine HCl 25 mg tablet 25 mg PO HS 08/03/21 07/18/22 multivit with minerals-iron 18 1 tablet PO DAILY 08/03/21 07/18/22 mg-folic ac 400 mcg-vit K 25 mcg tablet (Adults Multivitamin) olanzapine 5 mg tablet 5 mg PO HS 08/03/21 07/18/22 quetiapine 150 mg tablet,extended 150 mg PO HS 08/03/21 07/18/22 release 24 hr insulin lispro 100 unit/mL See Rx Instructions .Route .COMPLEX 10/02/21 07/18/22 subcutaneous solution (Humalog U-100 Insulin) ipratropium bromide 0.02 % 0.5 mg inhalation Q6H PRN 10/02/21 07/18/22 solution for inhalation Shortness Of Breath Or Wheezing albuterol sulfate 2.5 mg/0.5 mL 5 mg inhalation Q6HRT PRN 12/03/21 07/18/22 solution for nebulization Shortness Of Breath Or Wheezing collagenase clostridium histo. 250 1 applic topical DAILY 05/02/22 07/18/22 unit/gram topical ointment (Santyl) gabapentin 400 mg capsule 600 mg PO Q8H 05/02/22 07/18/22 insulin lispro 100 unit/mL 10 unit subcut TIDWMEAL 05/02/22 07/18/22 subcutaneous solution (Humalog U-100 Insulin) metolazone 2.5 mg tablet 2.5 mg PO EVERY OTHER DAY 05/02/22 07/18/22 potassium chloride 20 mEq 20 meq PO EVERY OTHER DAY 05/02/22 07/18/22 tablet,extended release(part/cryst) acetaminophen 300 mg-codeine 60 mg 1 tablet PO TID 07/18/22 07/18/22 tablet acetaminophen 650 mg tablet 650 mg PO Q4H PRN Pain (Scale 07/18/22 07/18/22 Score 1-3) ceftriaxone 2 gram/50 mL in 2 g IV DAILY 07/18/22 07/18/22 dextrose (iso-osm) intravenous piggyback hydralazine 25 mg tablet 75 mg PO Q8H 07/18/22 07/18/22 insulin glargine 100 unit/mL 42 unit subcut Q12H 07/18/22 07/18/22 subcutaneous solution (Lantus U-100 Insulin) nifedipine 30 mg tablet,extended 30 mg PO DAILY 07/18/22 07/18/22 release 24 hr polyethylene glycol 3350 17 gram 17 g PO DAILY 07/18/22 07/18/22 oral powder packet (Miralax) vancomycin 1,000 mg intravenous 1 g IV EVERY OTHER DAY 07/18/22 07/18/22 injection Allergies Allergy/AdvReac Type Severity Reaction Status Date / Time citalopram AdvReac Unknown Verified 01/17/22 12:40 varenicline [From Chantix] AdvReac Unknown Verified 01/17/22 12:40 Review of Systems Review of Systems: ROS unobtainable: Yes unobtainable due to mental status PMFSH Past Medical History Medical History Carcinoma in situ of vulva Chronic kidney disease Baseline creatinine ranges between 2.0 and 2.50. Diabetic neuropathy Diastolic dysfunction Echocardiogram in July 2021 showed normal LV systolic function with an EF
[2022-07-18 13:44] LABS: Alveolar/Arterial O2 Gradient 14.8 mmHg; Base Excess ABG -14.6 mEq/l (+/-2.0); Fractional Inspired Oxygen 21 %; HCO3 ABG 15.2 mEq/l (22.0-26.0); Oxygen Content ABG 15.1 %vol (16.0-22.0); Oxyhemoglobin 89.1 % THb (90.0-100.0); PCO2 ABG 52.3 mmHg (35.0-45.0); PO2 ABG 72.3 mmHg (80.0-100.0); PO2 FiO2 Ratio Arterial Blood 3.44 %
[2022-07-18] MEDS: LACTATED RINGERS 1,000 ML 999 ML IV CONT ×2 (13:44→14:31)
[2022-07-18 13:48] LABS: pH ABG 7.081 (7.350-7.450)
[2022-07-18 13:49] LABS: Modified Allen's Test Unable to perform; Oxygen Saturation ABG 87.6 % (95.0-100.0); Site Drawn LEFT RADIAL
[2022-07-18 13:51] LABS: Basophils Absolute Auto 0.1 K/mm3 (0.0-0.1); Basophils Percent Auto 0.9 % (0.2-1.2); Eosinophils Absolute Auto 0.5 K/mm3 (0-0.3); Hemoglobin 11.7 g/dL (12.0-15.0); Immature Granulocyte Absolute 0.12 K/mm3 (0.00-0.031); Immature Granulocyte Percent A 1.2 % (0-0.5); Lymphocytes Absolute Auto 2.68 K/mm3 (0.9-3.2); Lymphocytes Percent Auto 25.9 % (18.3-44.2); Mean Corpuscular HGB Conc 30.8 g/dl (32-36); Mean Corpuscular Hemoglobin 28.2 pg (26-34); Mean Corpuscular Volume 91.6 fl (80-100); Mean Platelet Volume 10.2 fl (7.4-10.4); Monocytes Absolute Auto 0.9 K/mm3 (0.1-0.6); Monocytes Percent Auto 8.5 % (2.6-8.5); Neutrophils Absolute Auto 6.1 K/mm3 (1.3-6.7); Neutrophils Percent Auto 58.5 % (45.5-73.1); Platelet Count Result 357 k/mm3 (150-375); Red Blood Count 4.15 M/mm3 (4.2-5.4); Red Cell Distribution Width 17.8 % (11.5-14.5); White Blood Count 10.3 K/mm3 (4.5-10.0)
[2022-07-18 14:01] LABS: INR 1.1; Lactic Acid Reflex 0.6 mmol/L (0.7-2.0); Prothrombin Time 13.6 Seconds (11.1-14.7)
[2022-07-18 14:05] LABS: Alanine Aminotransferase 20 U/L (6-35); Albumin Level 3.3 g/dL (3.5-5.1); Alkaline Phosphatase 103 U/L (38-126); Anion Gap 12 mmol/L (8-16); Aspartate Amino Transferase 35 U/L (14-36); Bilirubin,Total 0.4 mg/dL (0.2-1.3); Blood Urea Nitrogen 80 mg/dL (7-17); Calcium 8.5 mg/dL (8.4-10.2); Carbon Dioxide 16 mmol/L (22-30); Chloride 100 mmol/L (98-107); Estimated CRCL calculation 13 ml/min; Estimated Glomerular Filt Rate 7; Glucose 132 mg/dL (65-110); Lipase 31 U/L (23-300); Potassium 6.9 mmol/L (3.4-5.0); Sodium 128 mmol/L (137-145)
[2022-07-18 14:11] LABS: NT Pro B Type Natriuretic Pept 7500 pg/mL (19.9-100); Troponin I < 0.012 ng/mL (0.000-0.034)
[2022-07-18 14:24] LABS: Influenza A QL RT-PCR Negative (Negative); Influenza B QL RT-PCR Negative (Negative); SARS-CoV-2 RNA PCR Negative
[2022-07-18] MEDS: CALCIUM GLUCONATE 1,000 MG/10 ML VIAL 1000 MG IV PUSH (14:31)
[2022-07-18] MEDS: INSULIN HUMAN REGULAR (*BKC) 100 UNITS/ML 10 UNITS IV PUSH ×2 (14:31→20:08)
[2022-07-18] MEDS: DEXTROSE 50% 25 GM/50 ML SYRINGE IV PUSH ×2 (14:31→20:08)
[2022-07-18] MEDS: ALBUTEROL SULFATE NEB 2.5 MG/3 ML INH 10 MG INHALATION (14:31)
[2022-07-18 14:39] LABS: Glucose Point of Care 132 mg/dl (65-105)
[2022-07-18] MEDS: ALBUMIN HUMAN 25% 25 GM/100 ML 100 ML IVPB (15:24)
[2022-07-18] MEDS: metroNIDAZOLE 500 MG/ISO 100ML 500 MG/100 ML BAG 100 MG IVPB (15:43)
--- NOTE | 2022-07-18 15:57 | PC.NURSE ---
Dressings applied to both heels
--- NOTE | 2022-07-18 16:00 | PM.IMHP ---
H&P: HPI History of Present Illness Date/Time: 07/18/22 16:00 Chief Complaint: Altered mental status. Narrative: This is a 52-year-old female with multiple medical problems including insulin-dependent diabetes, chronic kidney disease, heart failure with preserved ejection fraction, hypertension, sleep apnea, hepatitis-C, morbid obesity, and other comorbidities who presented to the emergency department via EMS from home with for evaluation of altered mental status. She is somnolent but arousable at the time of my evaluation however she is not cooperative and she yells expletives when awakened to answer questions. As such I was unable to obtain a good history and the following information was obtained via a review of her EMR as well as nursing report. She has been to the hospital service from a recent admission in April 2022 in which he was treated for acute on chronic respiratory failure, CHF exacerbation, and osteomyelitis of the right heel. Since that time she has been hospitalized at [facility] and it sounds as though she was released from that facility within the last week or so. She has a PICC line in place but unfortunately we have not been able to get in touch with her rehab center to determine why this was placed and what she is receiving. In any regard she was apparently more lethargic today than normal and EMS was summoned. On their arrival she was hypotensive with a blood pressure of 80/50. Blood pressure responded nicely to IV fluids given in the emergency department. She was afebrile on arrival with a temperature of 97.3? however her temperature did dip to 94.3? and she is currently on a Oscar Hugger. Labs in the ED were significant for acute on chronic kidney injury with a BUN and creatinine of 80 and 6.40 respectively (baseline creatinine is probably around 2.0 to 2.50), sodium 128, potassium 6.9, chloride 100, carbon dioxide 16, anion gap 12, lactic acid 0.6, proBNP 7500. A Chen catheter was inserted and she has only had about 30 mL of urine output thus far. Brain CT showed no acute findings though limited examination the posterior fossa. CT of the chest/abdomen/pelvis showed focal subcutaneous emphysema of superior medial right chest wall (it looks like IV attempt was made at this site), diffuse patchy ground-glass densities of the lung suggesting small airways disease, bilateral lower lobe atelectasis/infiltrate, cardiomegaly, porcelain gallbladder. 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 ABG on arrival showed a pH of 7.081, pCO2 52.3, and a bicarb of 15.2. In the ED she was bolused with IV fluids, received broad-spectrum antibiotics, was treated appropriately for the hyperkalemia, and she was started on a bicarbonate drip. She was also started on BiPAP given concomitant respiratory acidosis. She was admitted to the ICU. Repeat blood gas this evening showed that she was not compensating appropriately for her mixed acidosis picture and decision was made intubate after discussions with the handle bar assembler. Review of Systems Review of Systems: Unable to obtain given clinical condition as above. [facility] Past Medical History Medical History (Updated 07/18/22 @ 23:31 by Estela Smith PA-C) Carcinoma in situ of vulva Chronic kidney disease Baseline creatinine ranges between 2.0 and 2.50. Diabetic neuropathy Diastolic dysfunction Echocardiogram in July 2021 showed normal LV systolic function with an EF of 60 to 65% and diastolic dysfunction. 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 During th
--- NOTE | 2022-07-18 16:24 | PC.NURSE ---
Dressings removed by . Stated to leave them off for surgical consult.
[2022-07-18] MEDS: SODIUM BICARBONATE 8.4% 50 MEQ/50 ML SYRINGE IV PUSH ×2 (17:04→20:08)
[2022-07-18 17:37] LABS: Troponin I < 0.012 ng/mL (0.000-0.034)
[2022-07-18 18:01] LABS: Alveolar/Arterial O2 Gradient 64.8 mmHg; Base Excess ABG -13.8 mEq/l (+/-2.0); Carboxyhemoglobin 1.4 % THb (0-2.0); Fractional Inspired Oxygen 30 %; HCO3 ABG 14.3 mEq/l (22.0-26.0); Methemoglobin ABG 0.4 %THb (0-1.5); Oxygen Content ABG 16.4 %vol (16.0-22.0); Oxygen Saturation ABG 95.8 % (95.0-100.0); Oxyhemoglobin 94.8 % THb (90.0-100.0); PCO2 ABG 41.6 mmHg (35.0-45.0); PO2 ABG 100.2 mmHg (80.0-100.0); PO2 FiO2 Ratio Arterial Blood 3.34 %; Reduced Hemoglobin 3.4 %THb (0-5.0); Total Hemoglobin 12.2 g/dL (12.0-18.0)
[2022-07-18 18:04] LABS: Device NON-INVASIVE VENT; Modified Allen's Test Unable to perform; Non-Invasive Expiratory Pressure 8 CMH2O; Non-Invasive Inspiratory Pressure 18 CMH2O; Non-Invasive Vent Rate 22 /MIN; Site Drawn LEFT RADIAL; pH ABG 7.155 (7.350-7.450)
--- NOTE | 2022-07-18 18:29 | ADMGEN ---
This patient, Josy Perez, was admitted to Intensive Care Unit-3. Patient/family oriented to hospital policies and general routines including ID bracelet, bed and alarms, visiting hours, pain management, procedures, bathroom and other care routines, personal items, smoking policy, room service/diet, and visiting hours. Information on how to activate the Rapid Response Team has been discussed. Patient/Family are encouraged to report perceived risks to care and to ask questions if they do not understand what they are told or what they should do.
[2022-07-18] MEDS: SODIUM BICARBONATE 8.4% 150 MEQ in DEXTROSE 5% 1,000 ML 950 ML 50 MEQ IV CONT (18:48)
[2022-07-18 19:04] LABS: Troponin I < 0.012 ng/mL (0.000-0.034)
[2022-07-18 19:08] LABS: Anion Gap 13 mmol/L (8-16); Blood Urea Nitrogen 75 mg/dL (7-17); Calcium 8.5 mg/dL (8.4-10.2); Carbon Dioxide 14 mmol/L (22-30); Chloride 99 mmol/L (98-107); Estimated CRCL calculation 13 ml/min; Estimated Glomerular Filt Rate 7; Glucose 204 mg/dL (65-110); Magnesium 2.1 mg/dL (1.6-2.3); Potassium 6.4 mmol/L (3.4-5.0); Sodium 126 mmol/L (137-145)
[2022-07-18 19:55] LABS: Phosphorus 11.8 mg/dL (2.5-4.5)
[2022-07-18] MEDS: CALCIUM GLUC 1,000 MG/NS 100ML 1,000 MG/100 ML BAG 200 MG IVPB (20:08)
[2022-07-18 21:17] LABS: Appearance Urine Slightly Cloudy (Clear); Bilirubin Urine Negative (Negative); Blood Urine 3+ (Negative); Color Urine Yellow (Yellow); Glucose Urine UA Negative (Negative); Ketones Urine Trace mg/dL (Negative); Leukocyte Esterase Ur 2+ LEU/UL (Negative); Nitrate Urine Negative (Negative); Protein Urine 3+ mg/dL (Negative); Specific Grav Ur >= 1.030 (1.001-1.035); Urobilinogen Urine 0.2 mg/dL (<2.0)
[2022-07-18 21:22] LABS: Add Urine Microscopic? YES
[2022-07-18 21:24] LABS: Squamous Epithelial Cell Urine Few /hpf (Few)
[2022-07-18 21:26] LABS: Bacteria Urine 2+ /hpf
[2022-07-18 21:34] LABS: Alveolar/Arterial O2 Gradient 69.1 mmHg; Fractional Inspired Oxygen 30 %; HCO3 ABG 16.5 mEq/l (22.0-26.0); Oxygen Content ABG 15.8 %vol (16.0-22.0); PCO2 ABG 48.1 mmHg (35.0-45.0); PO2 ABG 88.3 mmHg (80.0-100.0); PO2 FiO2 Ratio Arterial Blood 2.94 %; Total Hemoglobin 11.9 g/dL (12.0-18.0)
[2022-07-18 21:36] LABS: pH ABG 7.154 (7.350-7.450)
[2022-07-18 21:37] LABS: Device BIPAP; Expiratory Pressure 8 cmH2O; Inspiratory Pressure 18 cmH2O; Modified Allen's Test Pass; Site Drawn LEFT RADIAL
[2022-07-18 21:57] LABS: Anion Gap 11 mmol/L (8-16); Blood Urea Nitrogen 74 mg/dL (7-17); Calcium 8.3 mg/dL (8.4-10.2); Carbon Dioxide 17 mmol/L (22-30); Chloride 101 mmol/L (98-107); Estimated CRCL calculation 13 ml/min; Estimated Glomerular Filt Rate 7; Glucose 206 mg/dL (65-110); Potassium 5.9 mmol/L (3.4-5.0); Sodium 129 mmol/L (137-145)
[2022-07-18] MEDS: SODIUM BICARBONATE 8.4% 50 MEQ/50 ML SYRINGE 100 MEQ IV PUSH (22:26)
--- NOTE | 2022-07-18 22:45 | WPDPROCEDUR ---
Procedures Intubation Intubation Date: 07/18/22 Intubation Time: 22:45 Consent: Emergent conditions. Consent implied given full code status. A pre-procedural Time-Out was completed immediately before starting the procedure and confirmed: Patient Identification, Site, Procedure, Patient Position and the Availability of Requisite Equipment: Yes Sedative: etomidate Mg given: 20 Paralytic: rocuronium Mg given: 50 Laryngoscope: fiber optic video scope Assist device used: fiber optic device ET tube size: 7.5 Tube secured depth (cm): 25 Tube secured location: lips Tube placement confirmation: visualized tube passing through cords, equal breath sounds bilaterally, no breath sounds over epigastrium and confirmation by capnometry Patient tolerated procedure: well Intubation complications: none Additional comments: Patient was preoxygenated with BiPAP and SpO2 was 100% at the time of RSI. Etomidate and rocuronium were given in rapid sequence. She was intubated easily and atraumatically on 1st attempt. 7.5 ET tube was seen passing through the vocal cords. Mist was noted in the ET tube, lung sounds were auscultated bilaterally, and there was good colorimetric change. Chest x-ray was reviewed post intubation. Vent settings and sedation per barrel bridge assembler.
[2022-07-18] MEDS: ETOMIDATE 20 MG/10 ML AMPUL IV PUSH (23:42)
[2022-07-18] MEDS: CENTRAL LINE FLUSH 10 ML IV PUSH (23:42)
[2022-07-18] MEDS: RAPID SEQUENCE INTUBATION KIT 1 EACH (23:42)
[2022-07-18] MEDS: SODIUM POLYSTYRENE SULFONONATE 15 GM/60 ML BTL 30 GM PO (23:42)
[2022-07-18] MEDS: ROCURONIUM BROMIDE 50 MG/5 ML VIAL IV PUSH (23:43)
[2022-07-18] MEDS: FENTANYL 2,500MCG/NS250ML(*CRX 2,500 MCG/250 ML BAG IV CONT (23:45)
[2022-07-18] MEDS: MIDAZOLAM 100MG/NS 100ML(*CRX) 100 MG/100 ML BAG IV CONT (23:46)
[2022-07-19] VITALS (85 sets, daily range): BP systolic 127–161; BP diastolic 71–128; PULSE 72–92; RESP 19–25; TEMP 36.2–37; O2SAT 93–100
[2022-07-19 00:39] LABS: Alveolar/Arterial O2 Gradient 606.1 mmHg; Base Excess ABG -8.4 mEq/l (+/-2.0); Fractional Inspired Oxygen 100 %; HCO3 ABG 16.1 mEq/l (22.0-26.0); Oxygen Content ABG 15.8 %vol (16.0-22.0); Oxygen Saturation ABG 94.9 % (95.0-100.0); PCO2 ABG 30.2 mmHg (35.0-45.0); PO2 ABG 76.7 mmHg (80.0-100.0); PO2 FiO2 Ratio Arterial Blood 0.77 %; Total Hemoglobin 11.9 g/dL (12.0-18.0); pH ABG 7.345 (7.350-7.450)
[2022-07-19 00:40] LABS: Device VENTILATOR; Modified Allen's Test Pass; Site Drawn LEFT RADIAL
[2022-07-19 00:41] LABS: Arterial Blood Gas PEEP 5 cmH2O; Arterial Blood Gas Tidal Volume 380 ml; Arterial Blood Gas Vent Mode CMV; Arterial Blood Gas Ventilator rate 22 /MIN
[2022-07-19] MEDS: metroNIDAZOLE 500 MG/ISO 100ML 500 MG/100 ML BAG 100 MG IVPB ×4 (01:17→17:59)
[2022-07-19 01:37] LABS: Glucose Point of Care 150 mg/dl (65-105)
[2022-07-19 01:44] LABS: Anion Gap 13 mmol/L (8-16); Blood Urea Nitrogen 79 mg/dL (7-17); Calcium 8.2 mg/dL (8.4-10.2); Carbon Dioxide 18 mmol/L (22-30); Chloride 100 mmol/L (98-107); Estimated CRCL calculation 13 ml/min; Estimated Glomerular Filt Rate 8; Glucose 139 mg/dL (65-110); Potassium 5.4 mmol/L (3.4-5.0); Sodium 131 mmol/L (137-145)
[2022-07-19 01:48] LABS: Creatinine Urine 158.8 mg/dL
[2022-07-19 01:50] LABS: Potassium Urine Random 55.4 meq/L; Sodium Urine Random 17 meq/L
[2022-07-19 01:51] LABS: Complement C3 109 mg/dL (88-165)
[2022-07-19 01:55] LABS: Erythrocyte Sedimentation Rate 132 mm/hr (0-20)
[2022-07-19 02:39] LABS: Eosinophil Urine None Seen % (None Seen); Urine Eos QC 2nd Tech Confirmed
[2022-07-19 02:44] LABS: Total Protein Urine Random > 600 mg/dL
[2022-07-19 04:59] LABS: Hematocrit 30.6 % (37.0-47.0); Hemoglobin 9.9 g/dL (12.0-15.0); Mean Corpuscular HGB Conc 32.4 g/dl (32-36); Mean Corpuscular Volume 86.4 fl (80-100); Mean Platelet Volume 10.1 fl (7.4-10.4); Platelet Count Result 325 k/mm3 (150-375); Red Blood Count 3.54 M/mm3 (4.2-5.4); Red Cell Distribution Width 17.1 % (11.5-14.5); White Blood Count 8.8 K/mm3 (4.5-10.0)
[2022-07-19 05:10] LABS: INR 1.1; Prothrombin Time 13.7 Seconds (11.1-14.7)
[2022-07-19 05:12] LABS: Alanine Aminotransferase 20 U/L (6-35); Alkaline Phosphatase 76 U/L (38-126); Anion Gap 13 mmol/L (8-16); Aspartate Amino Transferase 28 U/L (14-36); Bilirubin,Total 0.3 mg/dL (0.2-1.3); Blood Urea Nitrogen 77 mg/dL (7-17); Carbon Dioxide 18 mmol/L (22-30); Chloride 101 mmol/L (98-107); Creatine Kinase 590 U/L (30-135); Estimated CRCL calculation 13 ml/min; Estimated Glomerular Filt Rate 7; Glucose 91 mg/dL (65-110); Potassium 5.2 mmol/L (3.4-5.0); Sodium 132 mmol/L (137-145)
[2022-07-19 06:18] LABS: Alveolar/Arterial O2 Gradient 304.2 mmHg; Base Excess ABG -6.7 mEq/l (+/-2.0); Carboxyhemoglobin 0.2 % THb (0-2.0); Fractional Inspired Oxygen 70 %; HCO3 ABG 17.7 mEq/l (22.0-26.0); Methemoglobin ABG 0.3 %THb (0-1.5); Oxygen Content ABG 15.3 %vol (16.0-22.0); Oxyhemoglobin 97.8 % THb (90.0-100.0); PCO2 ABG 31.8 mmHg (35.0-45.0); PO2 ABG 160.7 mmHg (80.0-100.0); Reduced Hemoglobin 1.7 %THb (0-5.0); Total Hemoglobin 10.9 g/dL (12.0-18.0); pH ABG 7.364 (7.350-7.450)
[2022-07-19 06:20] LABS: Device VENTILATOR; Modified Allen's Test Pass; Site Drawn RIGHT RADIAL
[2022-07-19 06:21] LABS: Arterial Blood Gas PEEP 5 cmH2O; Arterial Blood Gas Tidal Volume 380 ml; Arterial Blood Gas Vent Mode CMV; Arterial Blood Gas Ventilator rate 20 /MIN
[2022-07-19] MEDS: CENTRAL LINE FLUSH 10 ML IV PUSH ×3 (06:38→20:28)
[2022-07-19] MEDS: ENOXAPARIN 30 MG/0.3 ML SYRINGE SUB-Q (09:01)
[2022-07-19] MEDS: FAMOTIDINE 20 MG/2 ML VIAL IV PUSH (09:01)
--- NOTE | 2022-07-19 10:29 | WPDCNINT ---
Assessment and Plan Assessment and plan (1) Acute and chronic respiratory failure: Qualifiers: Respiratory failure complication: hypoxia and hypercapnia Qualified Code(s): J96.21 - Acute and chronic respiratory failure with hypoxia; J96.22 - Acute and chronic respiratory failure with hypercapnia Code(s): J96.20 - Acute and chronic respiratory failure, unspecified whether with hypoxia or hypercapnia Status: Acute Assessment and Plan: Acute Respiratory failure secondary to encephalopathy, renal failure, possible pneumonia Chest x-ray - Small left pleural effusion with associated atelectasis/or pneumonia in the mid to lower lung zones ABG and ventilator settings reviewed Continue full mechanical ventilation support to prevent hypoxemia/hypercarbia and end organ damage. Bronchodilators (2) Acute osteomyelitis of right calcaneus: Code(s): M86.171 - Other acute osteomyelitis, right ankle and foot Status: Acute Assessment and Plan: Patient was on IV Rocephin as an outpatient. Currently on vancomycin Levaquin and cefepime (3) Metabolic acidosis with respiratory acidosis: Code(s): E87.4 - Mixed disorder of acid-base balance Status: Acute Assessment and Plan: Improved with IV bicarb and mechanical ventilation (4) Hyperkalemia: Code(s): E87.5 - Hyperkalemia Status: Acute Assessment and Plan: Will order Lokelma (5) Xfpet-yb-jbqsumn kidney injury: Code(s): N17.9 - Acute kidney failure, unspecified; N18.9 - Chronic kidney disease, unspecified Status: Acute Assessment and Plan: Baseline creatinine around 2. Presented with creatinine of 6.4 Renal ultrasound done and report pending Patient evaluated by Nephrology. Further workup per Nephrology CK elevated at 590. Continue IV fluids. Monitor CK level Lasix ordered May need dialysis (6) Diabetes mellitus with hyperglycemia: Code(s): E11.65 - Type 2 diabetes mellitus with hyperglycemia Status: Acute Assessment and Plan: Sliding scale insulin (7) Pressure ulcer, heel, left, unstageable: Code(s): L89.620 - Pressure ulcer of left heel, unstageable Status: Acute Assessment and Plan: Wound care consult (8) Sepsis: Code(s): A41.9 - Sepsis, unspecified organism Status: Acute Assessment and Plan: UA suggestive of UTI. Patient also has osteomyelitis. Chest x-ray suggest pneumonia Lactic acid is normal Continue IV fluids Urine sputum and blood cultures are ordered and pending (9) Encephalopathy acute: Code(s): G93.40 - Encephalopathy, unspecified Status: Acute Assessment and Plan: Head CT was negative for acute change Check ammonia level Sedation holiday Plan DVT prophylaxis -Lovenox Stress ulcer prophylaxis -PPI Nutrition -start Tube Feeds Code Status - Full Code Total Critical Care Time - 40 minutes Due to a high probability of clinically significant, life threatening deterioration, the patient required my highest level of preparedness to intervene emergently and I personally spent this critical care time directly and personally managing the patient. This critical care time included obtaining a history; examining the patient; pulse oximetry; ordering and review of studies; arranging urgent treatment with development of a management plan; evaluation of patient's response to treatment; frequent reassessment; and discussions with other providers. It was exclusive of separately billable procedures and treating other patients and teaching time. 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
--- NOTE | 2022-07-19 10:49 | PM.CNNEP ---
Assessment and Plan Assessment and plan (1) Dhdaw-ht-oypfrvy kidney injury: Code(s): N17.9 - Acute kidney failure, unspecified; N18.9 - Chronic kidney disease, unspecified Status: Acute Assessment and Plan: The patient has chronic kidney disease. Baseline creatinine is around 2 and her GFR is reflective of stage 4 chronic kidney disease. It is unclear if she sees anybody as an outpatient as she cannot give a history. Most likely this is due to diabetes and high blood pressure. The patient has acute kidney injury as well. She has multiple issues that might lead to this. She was hypotensive on admission and also when she got to the ICU. She was most likely dehydrated as well. The patient has multiple sources of infection including decubitus ulcers, pneumonia, and has signs of sepsis. She was on diuretics as an outpatient. All of the above could lead to pre renal azotemia or ATN. Obstruction is always a possibility. Will check a renal ultrasound. Inflammatory disease or infiltrative diseases are possible as well but less likely in this clinical scenario. Will check urine electrolytes and renal ultrasound. Currently the blood pressure looks a little bit better (2) Hyperkalemia: Code(s): E87.5 - Hyperkalemia Status: Acute Assessment and Plan: the patient had a high potassium. Most likely due to the renal failure and possibly high catabolic rate. She was also on potassium supplements. This is on his way down. (3) Metabolic acidosis with respiratory acidosis: Code(s): E87.4 - Mixed disorder of acid-base balance Status: Acute Assessment and Plan: She has a respiratory acidosis from inadequate breathing. She is now on the ventilator. She has a metabolic acidosis, possibly due to hypotensive and or sepsis. She is getting bicarbonate. (4) Sepsis: Code(s): A41.9 - Sepsis, unspecified organism Status: Acute Assessment and Plan: the patient has cultures done in and is on broad-spectrum antibiotics (5) Hyperglycemia due to type 2 diabetes mellitus: Qualifiers: Diabetes mellitus usp insulin use: with usp use Qualified Code(s): E11.65 - Type 2 diabetes mellitus with hyperglycemia; Z79.4 - predatory animal exterminator (current) use of insulin Code(s): E11.65 - Type 2 diabetes mellitus with hyperglycemia Status: Acute Assessment and Plan: the patient is on Accu-Cheks and sliding scale insulin (6) Hypertension: Code(s): I10 - Essential (primary) hypertension Status: Acute Assessment and Plan: blood pressure is not high at the moment. History of Present Illness Reason for Consult Consult date: 07/20/22 Chief Complaint Chief complaint: Acute Renal Failure History of Present Illness Narrative: Josy is an unfortunate 52-year-old lady who has multiple medical problems including chronic kidney disease, diabetes, hypertension, sleep apnea who refuses CPAP, Hepatitis C,congestive heart failure with preserved ejection fraction, vulvar carcinoma in situ, decubitus ulcers, anemia, morbid obesity, history of endocarditis, and depression. she lives at a alf facility. She was recently discharged from [facility] with the PICC line. It is unclear what happened there. While at the alf facility, she became confused and belligerent. They sent her to the emergency room here at [place]. Here she was still very agitated. She was hypotensive. She had multiple electrolyte abnormalities including high potassium and high BUN plus creatinine with a low CO2. The patient had a CT scan of the brain which was unremarkable, and a CT scan of the chest abdomen and pelvis without contrast which showed focal subcu emphysema in the right upper chest wall, atelectasis, cardiomegaly, porcelain gallbladder. She was started on a BiPAP and admitted to the ICU.
--- NOTE | 2022-07-19 11:29 | PC.NURSE ---
Called [phone] to update patients contact acid plant operator helper Jeevan, no answer.
[2022-07-19] MEDS: MINERAL OIL/WHITE PETROLATUM OINTMENT 1 APPLIC EACH EYE ×2 (11:47→20:28)
[2022-07-19] MEDS: SODIUM ZIRCONIUM CYCLOSILICATE 10 GM POWD.PACK PO ×3 (11:47→20:29)
--- NOTE | 2022-07-19 12:33 | PM.CNGS ---
Assessment and Plan Assessment and plan (1) Acute osteomyelitis of right calcaneus: Code(s): M86.171 - Other acute osteomyelitis, right ankle and foot Status: Acute Assessment and Plan: The right toe heel wound has exposed calcaneus bone with chronic osteomyelitis. There is an area about 2x3cm where there was soft tissue necrosis of the tissue that will likely need to be debrided. Given there is no evidence of surrounding cellulitis or proximal ascending cellulitis of the right foot to the proximal leg I would think that her sepsis is more likely due to something other than her right heel such as line sepsis. The left heel has a developing pressure ulcer which may also need to be debrided. Continue broad-spectrum IV antibiotics IV and aggressive ICU Critical Care. She will ultimately need some debridement of those heel wounds. If they remain as chronic nonhealing wounds and she remains bed ridden consideration for below-knee amputation at least on the right side should be considered. (2) Sepsis: Code(s): A41.9 - Sepsis, unspecified organism Status: Acute Assessment and Plan: Could be due to line sepsis or urosepsis. Continue IV antibiotics. Less likely due to the heel ulcers. However the heel ulcer will the be debrided surgically and has couple days. (3) Cellulitis of left heel: Code(s): L03.116 - Cellulitis of left lower limb Status: Acute Assessment and Plan: Will likely need to have debridement of the left heel as well. History of Present Illness Consult details Consult date: 07/19/22 Narrative: Unfortunate 52-year-old female who was admitted through the emergency room yesterday to the ICU after it was noted she had mental status changes at the [facility]. She was recently admitted to [facility] for treatment and sent to the [facility] within the last week. No records are available at this time to review from [facility]. She did have a previous admission here to [facility] at which time I partner Dr. Surinder Dias had debrided and necrotic pressure ulcer on the right heel on 05/09/22. Evidence osteomyelitis was noted at that time with exposed calcaneus. She appeared to be septic in the emergency room which may have been from line sepsis as she has a PICC line placed. She was intubated last evening in the ICU and remained intubated now. I have been asked to evaluate the bilateral heel wounds to see if she may need more surgical debridement of the wounds. She apparently is bed-bound at the [facility]. She remains a full code. Review of Systems Review of Systems: The remainder of the review of systems to include constitutional, HEENT, cardiovascular, respiratory, GI, , integumentary, musculoskeletal, endocrine, immunologic, hematologic, psychiatric, and neurologic are all negative except for which is mentioned above in the HPI. [facility] Past Medical History Medical History Carcinoma in situ of vulva Chronic kidney disease Baseline creatinine ranges between 2.0 and 2.50. Diabetic neuropathy Diastolic dysfunction Echocardiogram in July 2021 showed normal LV systolic function with an EF of 60 to 65% and diastolic dysfunction. 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 During that hospitalization she had a colostomy placed and had debridement. Hearing loss Hypertension Injury, spleen, with hematoma Versus abscess Insulin dependent type 2 diabetes mellitus Iron deficiency anemia Major depression with psychotic feat
[2022-07-19 13:15] LABS: Ammonia < 9 umol/L (9-30)
[2022-07-19] MEDS: SODIUM BICARBONATE 8.4% 150 MEQ in DEXTROSE 5% 1,000 ML 950 ML 50 MEQ IV CONT (14:43)
--- NOTE | 2022-07-19 15:25 | PM.IMPN ---
Progress Note: A&P Assessment and Plan (1) Sepsis: Code(s): A41.9 - Sepsis, unspecified organism Status: Acute Assessment and Plan: Continue IV antibiotics with vancomycin, cefepime, Levaquin Concern for possible UTI, follow urine cultures Concern for possible pneumonia, serial chest x-rays, follow-up blood in sputum culture Continue IV fluids for now (2) Acute and chronic respiratory failure: Qualifiers: Respiratory failure complication: hypoxia and hypercapnia Qualified Code(s): J96.21 - Acute and chronic respiratory failure with hypoxia; J96.22 - Acute and chronic respiratory failure with hypercapnia Code(s): J96.20 - Acute and chronic respiratory failure, unspecified whether with hypoxia or hypercapnia Status: Acute Assessment and Plan: Multifactorial, possible pneumonia, appreciate critical care consultation Continue intubation, ventilation Continue IV antibiotics, vancomycin, Levaquin, cefepime (3) Acute osteomyelitis of right calcaneus: Code(s): M86.171 - Other acute osteomyelitis, right ankle and foot Status: Acute Assessment and Plan: Antibiotics as above (4) Metabolic acidosis with respiratory acidosis: Code(s): E87.4 - Mixed disorder of acid-base balance Status: Acute Assessment and Plan: Improved with IV bicarb and mechanical ventilation (5) Hyperkalemia: Code(s): E87.5 - Hyperkalemia Status: Acute Assessment and Plan: lokelma ordered by Critical Care (6) Wqzos-wc-wizzuws kidney injury: Code(s): N17.9 - Acute kidney failure, unspecified; N18.9 - Chronic kidney disease, unspecified Status: Acute Assessment and Plan: Appreciate nephrology consultation, baseline creatinine appears to be around 2 Severe CHRIS noted, may need dialysis (7) Diabetes mellitus with hyperglycemia: Code(s): E11.65 - Type 2 diabetes mellitus with hyperglycemia Status: Acute Assessment and Plan: Accu-Cheks, sliding scale insulin, check A1c (8) Pressure ulcer, heel, left, unstageable: Code(s): L89.620 - Pressure ulcer of left heel, unstageable Status: Acute Assessment and Plan: Appreciate Wound consultation (9) Encephalopathy acute: Code(s): G93.40 - Encephalopathy, unspecified Status: Acute Assessment and Plan: Head CT was negative for acute change Ammonia level less than 9 Sedation holiday Plan DVT prophylaxis -Lovenox Stress ulcer prophylaxis -PPI Nutrition -start Tube Feeds Code Status - Full Code Subjective Date/time seen: 07/19/22 15:25 Interval history: intubated, sedated. no overnight events. no fevers. Review of Systems Review of Systems: ROS unobtainable: Yes unobtainable due to endotracheal tube Exam Narrative: General: Intubated, sedated HEENT: Atraumatic, normocephalic, mucous membranes dry CV: Regular rate and rhythm, S1, S2 Lungs: Coarse breath sounds throughout, no wheeze Abdomen: Soft, colostomy noted Extremities: No edema noted Skin: Dressings noted on bilateral heel wounds, clean/dry/intact Psych: Unable to assess Objective Data Vital Signs Vital Signs: Vital Signs - 24 hr 07/18/22 15:30 07/18/22 15:45 07/18/22 16:26 Temperature Pulse Rate 80 80 79 Respiratory Rate 12 14 22 H Blood Pressure 128/55 L 130/66 Pulse Oximetry 100 100 100 Oxygen Delivery BiPAP Fraction of Inspired Oxygen 07/18/22 16:28 07/18/22 16:30 07/18/22 16:32 Temperature Pulse Rate 82 80 81 Respiratory Rate 12 12 20 Blood Pressure 122/84 137/44 L Pulse Oximetry 97 98 100 Oxygen Delivery Fraction of Inspired Oxygen 07/18/22 16:45 07/18/22 16:46 07/18/22 17:00 Temperature Pulse Rate 81 81 80 Respiratory Rate 15 13 14 Blood Pressure 130/68 Pulse Oximetry 98 96 100 Oxygen Delivery Fraction of Inspired Oxygen 07/18/22 17:01 07/18/22 17:08 03
[2022-07-19 17:59] LABS: Glucose Point of Care 138 mg/dl (65-105)
[2022-07-19 18:10] LABS: Glucose Point of Care 117 mg/dl (65-105)
[2022-07-19 18:17] LABS: Anion Gap 11 mmol/L (8-16); Blood Urea Nitrogen 74 mg/dL (7-17); Calcium 7.6 mg/dL (8.4-10.2); Carbon Dioxide 19 mmol/L (22-30); Chloride 99 mmol/L (98-107); Estimated CRCL calculation 14 ml/min; Estimated Glomerular Filt Rate 8; Glucose 125 mg/dL (65-110); Potassium 4.5 mmol/L (3.4-5.0); Sodium 129 mmol/L (137-145)
[2022-07-20] VITALS (110 sets, daily range): BP systolic 141–192; BP diastolic 70–130; PULSE 0–120; RESP 0–44; TEMP 36.8–37.8; O2SAT 87–99
[2022-07-20] MEDS: SODIUM BICARBONATE 8.4% 150 MEQ in DEXTROSE 5% 1,000 ML 950 ML 125 MEQ IV CONT (00:25)
[2022-07-20] MEDS: metroNIDAZOLE 500 MG/ISO 100ML 500 MG/100 ML BAG 100 MG IVPB ×2 (00:27→06:02)
[2022-07-20 00:40] LABS: Glucose Point of Care 145 mg/dl (65-105)
--- NOTE | 2022-07-20 03:09 | PC.NURSE ---
Daylight Savings Time For Daylight Savings Time Ending in the Fall - Clocks are moved back. For Daylight Savings Time Beginning in the Spring - Clocks are moved ahead. For [facility], the time of change occurs at 0200 hrs. Time is taken from the caseworker. This entry on the patient's chart recognizes the change in time reflected during documentation. Example: 2 entries for vital signs may be charted for 0200 hrs.
[2022-07-20 05:17] LABS: Alveolar/Arterial O2 Gradient 143.2 mmHg; Base Excess ABG -2.9 mEq/l (+/-2.0); Carboxyhemoglobin 0.4 % THb (0-2.0); Fractional Inspired Oxygen 35 %; HCO3 ABG 22.1 mEq/l (22.0-26.0); Methemoglobin ABG 0.4 %THb (0-1.5); Oxygen Content ABG 20.1 %vol (16.0-22.0); Oxygen Saturation ABG 90.6 % (95.0-100.0); Oxyhemoglobin 88.8 % THb (90.0-100.0); PCO2 ABG 39.3 mmHg (35.0-45.0); PO2 ABG 60.7 mmHg (80.0-100.0); PO2 FiO2 Ratio Arterial Blood 1.73 %; Reduced Hemoglobin 10.4 %THb (0-5.0); Total Hemoglobin 16.1 g/dL (12.0-18.0); pH ABG 7.367 (7.350-7.450)
[2022-07-20 05:18] LABS: Arterial Blood Gas PEEP 5 cmH2O; Arterial Blood Gas Tidal Volume 380 ml; Arterial Blood Gas Vent Mode CMV; Arterial Blood Gas Ventilator rate 20 /MIN; Device VENTILATOR; Modified Allen's Test Pass; Site Drawn LEFT RADIAL
[2022-07-20 05:33] LABS: Hematocrit 30.7 % (37.0-47.0); Mean Corpuscular HGB Conc 32.6 g/dl (32-36); Mean Corpuscular Hemoglobin 28.7 pg (26-34); Mean Corpuscular Volume 88.2 fl (80-100); Mean Platelet Volume 9.7 fl (7.4-10.4); Platelet Count Result 292 k/mm3 (150-375); Red Blood Count 3.48 M/mm3 (4.2-5.4); Red Cell Distribution Width 17.5 % (11.5-14.5); White Blood Count 10.9 K/mm3 (4.5-10.0)
[2022-07-20 05:43] LABS: Alanine Aminotransferase 19 U/L (6-35); Albumin Level 2.8 g/dL (3.5-5.1); Alkaline Phosphatase 83 U/L (38-126); Anion Gap 13 mmol/L (8-16); Aspartate Amino Transferase 25 U/L (14-36); Bilirubin,Total 0.4 mg/dL (0.2-1.3); Blood Urea Nitrogen 73 mg/dL (7-17); Calcium 7.1 mg/dL (8.4-10.2); Carbon Dioxide 21 mmol/L (22-30); Chloride 98 mmol/L (98-107); Estimated CRCL calculation 14 ml/min; Estimated Glomerular Filt Rate 8; Glucose 168 mg/dL (65-110); Magnesium 1.7 mg/dL (1.6-2.3); Potassium 4.4 mmol/L (3.4-5.0); Sodium 132 mmol/L (137-145)
[2022-07-20] MEDS: CENTRAL LINE FLUSH 10 ML IV PUSH ×3 (06:02→21:00)
[2022-07-20 06:09] LABS: Vancomycin Random 31.3 ug/mL (10-20)
--- NOTE | 2022-07-20 08:08 | WPDINTPN ---
Progress Note: A&P Assessment and Plan (1) Acute and chronic respiratory failure: Qualifiers: Respiratory failure complication: hypoxia and hypercapnia Qualified Code(s): J96.21 - Acute and chronic respiratory failure with hypoxia; J96.22 - Acute and chronic respiratory failure with hypercapnia Code(s): J96.20 - Acute and chronic respiratory failure, unspecified whether with hypoxia or hypercapnia Status: Acute Assessment and Plan: Acute Respiratory failure secondary to encephalopathy, renal failure, possible pneumonia CT chest on admission Focal subcutaneous emphysema of superomedial right chest wall Right upper extremity PIC catheter in very proximal superior vena cava Diffuse patchy groundglass density of the lungs suggesting small airways disease Bilateral lower lobe atelectasis/infiltrate Cardiomegaly Chest x-ray reviewed ABG and ventilator settings reviewed Continue full mechanical ventilation support to prevent hypoxemia/hypercarbia and end organ damage. Bronchodilators Sedation holiday (2) Acute osteomyelitis of right calcaneus: Code(s): M86.171 - Other acute osteomyelitis, right ankle and foot Status: Acute Assessment and Plan: Patient was on IV Rocephin as an outpatient. Currently on vancomycin Levaquin and cefepime Surgery planning to debridement tomorrow (3) Metabolic acidosis with respiratory acidosis: Code(s): E87.4 - Mixed disorder of acid-base balance Status: Acute Assessment and Plan: Improved with IV bicarb and mechanical ventilation (4) Hyperkalemia: Code(s): E87.5 - Hyperkalemia Status: Acute Assessment and Plan: Normalized with lokelma (5) Mhfpn-bz-sgsxesu kidney injury: Code(s): N17.9 - Acute kidney failure, unspecified; N18.9 - Chronic kidney disease, unspecified Status: Acute Assessment and Plan: Baseline creatinine around 2. Presented with creatinine of 6.4 Renal ultrasound done and shows unremarkable kidneys with no hydronephrosis Potassium level has improved with Lokelma Patient evaluated by Nephrology. And case discussed with Dr. Aceves He recommends holding further iV fluids and administering diuretics. Six ordered monitor CK level She may need dialysis (6) Diabetes mellitus with hyperglycemia: Code(s): E11.65 - Type 2 diabetes mellitus with hyperglycemia Status: Acute Assessment and Plan: Sliding scale insulin (7) Pressure ulcer, heel, left, unstageable: Code(s): L89.620 - Pressure ulcer of left heel, unstageable Status: Acute Assessment and Plan: Wound care consult (8) Sepsis: Code(s): A41.9 - Sepsis, unspecified organism Status: Acute Assessment and Plan: UA suggestive of UTI. Patient also has osteomyelitis although wound does not look overall be infected. Chest x-ray suggest pneumonia but again not very impressive. She also has a PICC line was recently placed Lactic acid was normal Her blood pressure was in fact elevated She has received significant amount IV fluids will hold further IV fluids at this time Urine sputum and blood cultures are ordered and pending Continue empiric antibiotics (9) Encephalopathy acute: Code(s): G93.40 - Encephalopathy, unspecified Status: Acute Assessment and Plan: Head CT was negative for acute change Normal ammonia level Sedation holiday and transition to propofol Plan DVT prophylaxis -Lovenox Stress ulcer prophylaxis -PPI Nutrition -continue Tube Feeds Code Status - Full Code Case discussed with Dr. Aceves from Nephrology Total Critical Care Time - 35 minutes Due to a high probability of clinically significant, life threatening deterioration, the patient required my highest level of preparedness to intervene emergently and I personally spent this critical care time directly and personally managing the patient. This critical care time included obtaining a his
[2022-07-20] MEDS: ENOXAPARIN 30 MG/0.3 ML SYRINGE SUB-Q (08:23)
[2022-07-20] MEDS: MINERAL OIL/WHITE PETROLATUM OINTMENT 1 APPLIC EACH EYE ×2 (08:23→20:57)
[2022-07-20] MEDS: PANTOPRAZOLE SODIUM IV 40 MG VIAL IV PUSH (08:24)
[2022-07-20] MEDS: LABETALOL HCL INJ 100 MG/20 ML VIAL 20 MG IV PUSH ×3 (08:31→16:11)
[2022-07-20] MEDS: carvediloL 12.5 MG TABLET PO ×2 (08:40→20:57)
--- NOTE | 2022-07-20 10:11 | PM.IMPN ---
Progress Note: A&P Assessment and Plan (1) Sepsis: Code(s): A41.9 - Sepsis, unspecified organism Status: Acute Assessment and Plan: Continue IV antibiotics with vancomycin, cefepime, Levaquin started on 07/18 Concern for possible UTI, follow urine cultures Concern for possible pneumonia, serial chest x-rays, follow-up blood in sputum culture IV fluids discontinued, receiving Lasix Chest x-ray today looks a little worse than yesterday, concerning for progressive congestion versus worsening pneumonia (2) Acute and chronic respiratory failure: Qualifiers: Respiratory failure complication: hypoxia and hypercapnia Qualified Code(s): J96.21 - Acute and chronic respiratory failure with hypoxia; J96.22 - Acute and chronic respiratory failure with hypercapnia Code(s): J96.20 - Acute and chronic respiratory failure, unspecified whether with hypoxia or hypercapnia Status: Acute Assessment and Plan: Multifactorial, possible pneumonia, chest x-ray little worse today than yesterday, appreciate critical care consultation, consider pulmonology consultation? Continue intubation, ventilation Continue IV antibiotics, vancomycin, Levaquin, cefepime (3) Acute osteomyelitis of right calcaneus: Code(s): M86.171 - Other acute osteomyelitis, right ankle and foot Status: Acute Assessment and Plan: Antibiotics as above, OR 07/21 (4) Metabolic acidosis with respiratory acidosis: Code(s): E87.4 - Mixed disorder of acid-base balance Status: Acute Assessment and Plan: Improved with IV bicarb and mechanical ventilation (5) Hyperkalemia: Code(s): E87.5 - Hyperkalemia Status: Acute Assessment and Plan: lokelma ordered by Critical Care (6) Tomna-nh-oqqlhpl kidney injury: Code(s): N17.9 - Acute kidney failure, unspecified; N18.9 - Chronic kidney disease, unspecified Status: Acute Assessment and Plan: Appreciate nephrology consultation, baseline creatinine appears to be around 2 Severe CHRIS noted, may need dialysis, creatinine 5.6 today 07/20, about the same as yesterday when it was 5.7 (7) Diabetes mellitus with hyperglycemia: Code(s): E11.65 - Type 2 diabetes mellitus with hyperglycemia Status: Acute Assessment and Plan: Accu-Cheks, sliding scale insulin, check A1c Blood glucose reviewed 07/20, 117-150 (8) Pressure ulcer, heel, left, unstageable: Code(s): L89.620 - Pressure ulcer of left heel, unstageable Status: Acute Assessment and Plan: Appreciate Wound consultation, see above (9) Encephalopathy acute: Code(s): G93.40 - Encephalopathy, unspecified Status: Acute Assessment and Plan: Head CT was negative for acute change Ammonia level less than 9 Sedation holiday per product marketing executive Plan DVT prophylaxis with Lovenox GI prophylaxis with PPI Code status full code Nutrition with tube feeds Subjective Date/time seen: 07/20/22 10:11 Interval history: 52-year-old female from rehab facility presented with multiple medical problems including diabetes, kidney disease, heart failure, hepatitis-C presented with altered mental status. Pertinent past medical history includes hospitalization for osteomyelitis of the right heel in April 2022, transferred to [facility] for further care (records pending, details unknown at this time), she does have PICC line in place, presumably for long-term IV antibiotics to treat the osteomyelitis but this has not been confirmed. Patient remains intubated, sedated, mechanical ventilation per product marketing executive. No overnight events. She did have a low-grade fever overnight. Tolerating tube feeds. Sedation holidays per product marketing executive. Surgery planned for debridement of osteomyelitis of right heel 07/21. Review of Systems Review of Systems: ROS unobtainable: Yes unobtainable due to endotracheal tube Exam Na
--- NOTE | 2022-07-20 10:21 | PM.PNNEP ---
Progress Note: A&P Assessment and Plan (1) Iqamj-ti-eqhgvrm kidney injury: Code(s): N17.9 - Acute kidney failure, unspecified; N18.9 - Chronic kidney disease, unspecified Status: Acute Assessment and Plan: The patient has chronic kidney disease. Baseline creatinine is around 2 and her GFR is reflective of stage 4 chronic kidney disease. It is unclear if she sees anybody as an outpatient as she cannot give a history. Most likely this is due to diabetes and high blood pressure. The patient has acute kidney injury as well. urine electrolytes are pre renal. Renal ultrasound is normal. UA shows a few white cells and few red cells. CK is high but not enough to cause kidney disease She has multiple issues that might lead to CHRIS She was hypotensive on admission and also when she got to the ICU. She was most likely dehydrated as well. The patient has multiple sources of infection including decubitus ulcers, pneumonia. Discussed with . she does not have much of a white count, lactic acid is normal, and blood pressure was low on admission but readily improved to normal and now is even high. So infection may not be as big of an issue. She might have been dehydrated on admission but now chest x-ray and physical exam show volume overload. It is unknown how long she was hypotensive before she came into the hospital so she could have ATN from low blood pressure and dehydration. Normally if somebody is just dehydrated than hydration alone will improve renal function quickly. However the delay could be the ATN component. At this point she is has volume overload so will try some diuretics consider dialysis if she does not respond or if the numbers worsen. (2) Hyperkalemia: Code(s): E87.5 - Hyperkalemia Status: Acute Assessment and Plan: Resolved. (3) Metabolic acidosis with respiratory acidosis: Code(s): E87.4 - Mixed disorder of acid-base balance Status: Acute Assessment and Plan: improved (4) Sepsis: Code(s): A41.9 - Sepsis, unspecified organism Status: Acute Assessment and Plan: the patient has cultures done in and is on broad-spectrum antibiotics. Await culture results. 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 Will see how she responds to diuretics. Subjective Date/time seen: 07/20/22 10:21 Interval history: Josy is intubated and sedated. She cannot give a history. She looks comfortable. Exam Narrative: WDWN Female intubated and sedated in the ICU in [facility] skin no rash head ncat lungs course bilateral cor reg no rub abd BS+ nontender and soft ext 1 to2+ diffuse edema. Objective Data Vital Signs Vital Signs: Vital Signs - 24 hr 07/19/22 09:30 07/19/22 09:45 07/19/22 10:00 Temperature 97.4 F L 97.4 F L Pulse Rate 76 76 74 Respiratory Rate 20 20 Blood Pressure Pulse Oximetry 99 98 Oxygen Delivery Fraction of Inspired Oxygen 07/19/22 10:00 07/19/22 10:01 07/19/22 10:15 Temperature 97.4 F L 97.4 F L 97.5 F L Pulse Rate 76 75 76 Respiratory Rate 20 20 20 Blood Pressure 145/83 H Pulse Oximetry 98 98 98 Oxygen Delivery Fraction of Inspired Oxygen 07/19/22 10:30 07/19/22 12:00 07/19/22 12:00 Temperature 97.5 F L Pulse Rate 75 74 75 Respiratory Rate 20 20 Blood Pressure Pulse Oximetry 98 98 Oxygen Delivery
--- NOTE | 2022-07-20 11:12 | PM.PNGS ---
Progress Note: A&P Assessment and Plan (1) Pressure ulcer of right heel, unstageable: Code(s): L89.610 - Pressure ulcer of right heel, unstageable Status: Chronic Assessment and Plan: Patient will need to go to the operating room tomorrow for surgical debridement of the nonviable tissue in the right heel wound. Will assess at the time of surgery to see a placement of wound VAC will be beneficial for postoperative dressing. We will get consent from patient's family today. Continue IV antibiotics and the rest of supportive management in the ICU. Keep intubated today will need to be intubated for surgery tomorrow. Plan will be to hopefully extubate her after surgery. (2) Pressure ulcer, heel, left, unstageable: Code(s): L89.620 - Pressure ulcer of left heel, unstageable Status: Acute Assessment and Plan: Will need debridement in the OR tomorrow as well. May and may not need a wound VAC placed. Subjective Subjective Date/Time Seen: 07/20/22 11:12 Interval history: Patient remains intubated hemodynamically stable. Vent support is and minimal settings but plans are to continue intubation today in preparation for surgery tomorrow. Renal function has improved and she follows commands when sedation is stopped. Exam Narrative: Right heel ulcer with exposed calcaneus bone 3cm area of necrotic tissue without surrounding redness or drainage of pus. Some granulation tissue was noted the base of the wound. Left heel with stage 2 pressure ulcer. GI: Other: Soft and nondistended. Left lower quadrant colostomy in place with output of stool. Objective Data Vital Signs Vital Signs: Vital Signs - 24 hr 07/19/22 10:15 07/19/22 10:30 07/19/22 12:00 Temperature 36.4 C L 36.4 C L Pulse Rate 76 75 74 Respiratory Rate 20 20 Blood Pressure Pulse Oximetry 98 98 Oxygen Delivery Fraction of Inspired Oxygen 07/19/22 12:00 07/19/22 12:00 07/19/22 10:45 Temperature 36.4 C L Pulse Rate 75 74 Respiratory Rate 20 20 Blood Pressure Pulse Oximetry 98 97 Oxygen Delivery Mechanical Ventilation Fraction of Inspired Oxygen 50 50 07/19/22 11:00 07/19/22 11:01 07/19/22 11:15 Temperature 36.4 C 36.4 C 36.4 C Pulse Rate 74 74 74 Respiratory Rate 20 20 20 Blood Pressure 136/79 Pulse Oximetry 98 98 98 Oxygen Delivery Fraction of Inspired Oxygen 07/19/22 11:30 07/19/22 11:45 07/19/22 12:00 Temperature 36.4 C 36.4 C 36.4 C L Pulse Rate 77 77 76 Respiratory Rate 20 20 20 Blood Pressure Pulse Oximetry 99 99 98 Oxygen Delivery Fraction of Inspired Oxygen 07/19/22 12:01 07/19/22 14:00 07/19/22 12:02 Temperature 36.4 C L 36.4 C L Pulse Rate 76 74 76 Respiratory Rate 20 20 Blood Pressure 151/82 H Pulse Oximetry 98 98 Oxygen Delivery Fraction of Inspired Oxygen 07/19/22 12:15 07/19/22 12:30 07/19/22 12:46 Temperature 36.4 C L 36.4 C L 36.3 C L Pulse Rate 75 75 74 Respiratory Rate 20 20 20 Blood Pressure Pulse Oximetry 97 97 96 Oxygen Delivery Fraction of Inspired Oxygen 07/19/22 13:00 07/19/22 13:01 07/19/22 13:15 Temperature 36.3 C L 36.3 C L 36.3 C L Pulse Rate 74 75 74 Respiratory Rate 20 20 20 Blood Pressure 141/81 H Pulse Oximetry 97 97 97 Oxygen Delivery Fraction of Inspired Oxygen 07/19/22 13:30 07/19/22 13:45 07/19/22 14:00 Temperature 36.2 C L 36.2 C L 36.2 C L Pulse Rate 74 74 74 Respiratory Rate 20 20 20 Blood Pressure Pulse Oximetry 97 97 97 Oxygen Delivery Fraction of Inspired Oxygen 07/19/22 14:01 07/19/22 14:36 07/19/22 16:00 Temperature 36.2 C L Pulse Rate 74 74 75 Respiratory Rate 20 20 Blood Pressure 145/79 H Pulse Oximetry 97 97 96 Oxygen Delivery Mechanical Ventilation Mechanical Ventilation Fraction of Inspired Oxygen 50 50 07/19/22 16:00 07/19/22 16:00 07/19/22 14:02 Temperature 36.2 C L Pulse Rate 75 74 Respiratory Rate 20 Blood Pressure
[2022-07-20] MEDS: SODIUM ZIRCONIUM CYCLOSILICATE 10 GM POWD.PACK PO ×3 (11:21→21:00)
[2022-07-20 11:25] LABS: Glucose Point of Care 191 mg/dl (65-105)
[2022-07-20 12:36] LABS: Triglycerides 301 mg/dL (<150)
[2022-07-20] MEDS: PROPOFOL IV EMULSION 100 ML 3.52 MG IV CONT (12:53)
[2022-07-20] MEDS: FUROSEMIDE INJ 100 MG/10 ML VIAL 80 MG IV PUSH (16:12)
[2022-07-20] MEDS: amLODIPine BESYLATE 5 MG TABLET FEED TUBE (17:12)
[2022-07-20 17:13] LABS: Glucose Point of Care 193 mg/dl (65-105)
[2022-07-20] MEDS: levoFLOXacin 500 MG/D5W 100 ML 500 MG/100 ML BAG 66.67 MG IVPB (17:46)
[2022-07-20] MEDS: hydrALAZINE HCL 20 MG/ML VIAL IV PUSH ×2 (18:30→18:32)
[2022-07-20] MEDS: cloNIDine HCL 0.1 MG TABLET PO (18:53)
[2022-07-20] MEDS: PROPOFOL IV EMULSION 100 ML 10.55 MG IV CONT (21:01)
[2022-07-21] VITALS (113 sets, daily range): BP systolic 79–164; BP diastolic 40–106; PULSE 61–92; RESP 11–26; TEMP 35.4–37.4; O2SAT 86–100; BMI 42.1
[2022-07-21 00:29] LABS: Glucose Point of Care 170 mg/dl (65-105)
[2022-07-21 04:24] LABS: Base Excess ABG 0.2 mEq/l (+/-2.0); Carboxyhemoglobin 0.2 % THb (0-2.0); Device VENTILATOR; Fractional Inspired Oxygen 35 %; HCO3 ABG 24.5 mEq/l (22.0-26.0); Methemoglobin ABG 0.3 %THb (0-1.5); Modified Allen's Test Pass; Oxygen Content ABG 15.1 %vol (16.0-22.0); Oxygen Saturation ABG 92.2 % (95.0-100.0); Oxyhemoglobin 90.2 % THb (90.0-100.0); PCO2 ABG 38.6 mmHg (35.0-45.0); PO2 ABG 61.7 mmHg (80.0-100.0); PO2 FiO2 Ratio Arterial Blood 1.76 %; Reduced Hemoglobin 9.3 %THb (0-5.0); Site Drawn RIGHT RADIAL; Total Hemoglobin 11.9 g/dL (12.0-18.0); pH ABG 7.421 (7.350-7.450)
[2022-07-21 04:25] LABS: Arterial Blood Gas PEEP 5 cmH2O; Arterial Blood Gas Tidal Volume 380 ml; Arterial Blood Gas Vent Mode CMV; Arterial Blood Gas Ventilator rate 20 /MIN
[2022-07-21 04:37] LABS: Hematocrit 32.4 % (37.0-47.0); Hemoglobin 10.4 g/dL (12.0-15.0); Mean Corpuscular HGB Conc 32.1 g/dl (32-36); Mean Corpuscular Hemoglobin 28.3 pg (26-34); Mean Platelet Volume 9.5 fl (7.4-10.4); Platelet Count Result 305 k/mm3 (150-375); Red Blood Count 3.68 M/mm3 (4.2-5.4); Red Cell Distribution Width 17.2 % (11.5-14.5); White Blood Count 10.2 K/mm3 (4.5-10.0)
[2022-07-21 04:46] LABS: Alanine Aminotransferase 18 U/L (6-35); Albumin Level 2.9 g/dL (3.5-5.1); Alkaline Phosphatase 96 U/L (38-126); Anion Gap 13 mmol/L (8-16); Aspartate Amino Transferase 24 U/L (14-36); Bilirubin,Total 0.4 mg/dL (0.2-1.3); Blood Urea Nitrogen 76 mg/dL (7-17); Calcium 7.4 mg/dL (8.4-10.2); Carbon Dioxide 24 mmol/L (22-30); Chloride 94 mmol/L (98-107); Estimated CRCL calculation 15 ml/min; Estimated Glomerular Filt Rate 8; Glucose 156 mg/dL (65-110); Magnesium 1.5 mg/dL (1.6-2.3); Sodium 131 mmol/L (137-145)
[2022-07-21] MEDS: LABETALOL HCL INJ 100 MG/20 ML VIAL 20 MG IV PUSH (04:48)
[2022-07-21] MEDS: PROPOFOL IV EMULSION 100 ML 10.55 MG IV CONT ×2 (04:48→19:00)
[2022-07-21 05:02] LABS: Vancomycin Random 27.6 ug/mL (10-20)
[2022-07-21] MEDS: CENTRAL LINE FLUSH 10 ML IV PUSH ×3 (05:05→20:55)
[2022-07-21] MEDS: hydrALAZINE HCL 20 MG/ML VIAL IV PUSH (05:38)
--- NOTE | 2022-07-21 08:10 | PM.PNNEP ---
Progress Note: A&P Assessment and Plan (1) Suodq-hx-ihsaoae kidney injury: Code(s): N17.9 - Acute kidney failure, unspecified; N18.9 - Chronic kidney disease, unspecified Status: Acute Assessment and Plan: The patient has chronic kidney disease. Baseline creatinine is around 2 and her GFR is reflective of stage 4 chronic kidney disease. It is unclear if she sees anybody as an outpatient as she cannot give a history. Most likely this is due to diabetes and high blood pressure. The patient has acute kidney injury as well. urine electrolytes are pre renal. Renal ultrasound is normal. UA shows a few white cells and few red cells. CK is high but not enough to cause kidney disease She has CHRIS, most likely due to prior hypotension, infection, ATN She has diffuse swelling and chest x-ray showing fluid. She received diuretics last night and made a little more urine but not much. Creatinine is a little bit better. It is unclear how long was going to take for her to get better but it does not sound like she is making great strides at this point. Dr. Chan is doing a debridement today. He will place a dialysis catheter we will commence with dry ultrafiltration we can watch the BUN and creatinine with more accuracy doing that and see if her renal function improves as we get fluid off (2) Hyperkalemia: Code(s): E87.5 - Hyperkalemia Status: Acute Assessment and Plan: Resolved. (3) Metabolic acidosis with respiratory acidosis: Code(s): E87.4 - Mixed disorder of acid-base balance Status: Acute Assessment and Plan: improved (4) Sepsis: Code(s): A41.9 - Sepsis, unspecified organism Status: Acute Assessment and Plan: the patient has cultures done in and is on broad-spectrum antibiotics. Await culture results. 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 Will remove fluid with dialysis and reassess. Subjective Date/time seen: 07/21/22 08:10 Interval history: Josy is intubated and sedated. On less sedatives. She opens her eyes a little when I call her name does not interact Exam Narrative: WDWN Female intubated and sedated in the ICU in [facility] skin no rash or subQ nodules head ncat lungs course bilateral cor reg no rub or gallop abd BS+ nontender and soft ext 1 to2+ diffuse edema. Objective Data Vital Signs Vital Signs: Vital Signs - 24 hr 07/20/22 08:31 07/20/22 08:40 07/20/22 10:00 Temperature Pulse Rate 82 83 84 Respiratory Rate Blood Pressure Pulse Oximetry 96 Oxygen Delivery Mechanical Ventilation Fraction of Inspired Oxygen 35 07/20/22 12:00 07/20/22 10:00 07/20/22 12:00 Temperature Pulse Rate 82 83 Respiratory Rate 20 Blood Pressure Pulse Oximetry 95 Oxygen Delivery Mechanical Ventilation Fraction of Inspired Oxygen 35 35 07/20/22 08:15 07/20/22 08:30 07/20/22 08:32 Temperature 99.2 F 99.2 F 99.2 F Pulse Rate 84 83 82 Respiratory Rate 20 20 20 Blood Pressure 191/101 H Pulse Oximetry 96 96 95 Oxygen Delivery Fraction of Inspired Oxygen 07/20/22 08:45 07/20/22 08:46 07/20/22 09:00 Temperature 99.2 F 99.2 F 99.2 F Pulse Rate 83 82 84 Respiratory Rate 18 20 20 Blood Pressure 183/93 H Pulse Oximetry 95 95 95 Oxygen Delivery Fraction of Inspired Oxygen 07/20/22 09:01 07/20/22 09:15 07/20/22 09:16 Temperatu
--- NOTE | 2022-07-21 08:44 | WPDINTPN ---
Progress Note: A&P Assessment and Plan (1) Acute and chronic respiratory failure: Qualifiers: Respiratory failure complication: hypoxia and hypercapnia Qualified Code(s): J96.21 - Acute and chronic respiratory failure with hypoxia; J96.22 - Acute and chronic respiratory failure with hypercapnia Code(s): J96.20 - Acute and chronic respiratory failure, unspecified whether with hypoxia or hypercapnia Status: Acute Assessment and Plan: Acute Respiratory failure secondary to encephalopathy, renal failure, possible pneumonia CT chest on admission Focal subcutaneous emphysema of superomedial right chest wall Right upper extremity PIC catheter in very proximal superior vena cava Diffuse patchy groundglass density of the lungs suggesting small airways disease Bilateral lower lobe atelectasis/infiltrate Cardiomegaly Chest x-ray reviewed ABG and ventilator settings reviewed Continue full mechanical ventilation support to prevent hypoxemia/hypercarbia and end organ damage. Bronchodilators Sedation holiday Hold weaning as patient is going for surgical debridement today Empiric antibiotics as below (2) Acute osteomyelitis of right calcaneus: Code(s): M86.171 - Other acute osteomyelitis, right ankle and foot Status: Acute Assessment and Plan: Patient was on IV Rocephin as an outpatient. Currently on vancomycin Levaquin and cefepime Surgery planning to debridement today (3) Metabolic acidosis with respiratory acidosis: Code(s): E87.4 - Mixed disorder of acid-base balance Status: Acute Assessment and Plan: Improved with IV bicarb and mechanical ventilation (4) Hyperkalemia: Code(s): E87.5 - Hyperkalemia Status: Acute Assessment and Plan: Normalized with lokelma (5) Iubnn-pp-wfpsmbv kidney injury: Code(s): N17.9 - Acute kidney failure, unspecified; N18.9 - Chronic kidney disease, unspecified Status: Acute Assessment and Plan: Baseline creatinine around 2. Presented with creatinine of 6.4 Renal ultrasound done and shows unremarkable kidneys with no hydronephrosis Potassium level has improved with Lokelma Patient is being followed by Nephrology. And case discussed with Dr. Aceves Although creatinine has improved markedly to 5.3 and urine output is reasonable with diuretics patient still has volume overload Will request General surgery to place a temporary dialysis catheter in the OR today and plan to initiate dialysis to remove volume Continue diuretics (6) Diabetes mellitus with hyperglycemia: Code(s): E11.65 - Type 2 diabetes mellitus with hyperglycemia Status: Acute Assessment and Plan: Sliding scale insulin (7) Pressure ulcer, heel, left, unstageable: Code(s): L89.620 - Pressure ulcer of left heel, unstageable Status: Acute Assessment and Plan: Wound care consult (8) Sepsis: Code(s): A41.9 - Sepsis, unspecified organism Status: Acute Assessment and Plan: UA suggestive of UTI. Patient also has osteomyelitis although wound does not look overly infected. Chest x-ray suggest pneumonia but again not very impressive. She also has a PICC line was recently placed Lactic acid was normal Her blood pressure was in fact elevated She has received significant amount IV fluids will hold further IV fluids at this time Urine sputum and blood cultures are ordered and negative now Continue empiric antibiotics vanc and cefepime (9) Encephalopathy acute: Code(s): G93.40 - Encephalopathy, unspecified Status: Acute Assessment and Plan: Head CT was negative for acute change Normal ammonia level Patient now following commands on sedation holiday Plan DVT prophylaxis -Lovenox Stress ulcer prophylaxis -PPI Nutrition -continue Tube Feeds Code Status - Full Code Case discussed with Dr. Aceves from Nephrology and Dr. Pedraza from surgery Total Critical Care Time - 35 minut
[2022-07-21] MEDS: MINERAL OIL/WHITE PETROLATUM OINTMENT 1 APPLIC EACH EYE ×2 (09:22→20:54)
[2022-07-21] MEDS: PANTOPRAZOLE SODIUM IV 40 MG VIAL IV PUSH (09:22)
[2022-07-21] MEDS: FUROSEMIDE INJ 100 MG/10 ML VIAL 80 MG IV PUSH ×2 (09:22→18:43)
[2022-07-21] MEDS: carvediloL 12.5 MG TABLET PO (09:22)
[2022-07-21] MEDS: amLODIPine BESYLATE 5 MG TABLET FEED TUBE (09:23)
[2022-07-21] MEDS: cloNIDine HCL 0.1 MG TABLET FEED TUBE (09:24)
[2022-07-21] MEDS: MAGNESIUM SULF 2 GM/WATER 50ML 2 GM/50 ML BAG IVPB (09:28)
--- NOTE | 2022-07-21 09:44 | PM.EVENT ---
Event Note Event Note Event Note: I talked with tami Cannon, patient's sister. We discussed the situation. Renal function is not recovering. She has lots of fluid on board keeping her on the ventilator and her urine output is present but not very high. It would be good for us to try take fluid off with the dialysis machine. We discussed the process, risks, benefits, and alternatives in the patient's sister agrees to proceed.
[2022-07-21 10:57] LABS: Hepatitis B Surface Antigen Negative (Negative)
[2022-07-21] MEDS: SODIUM ZIRCONIUM CYCLOSILICATE 10 GM POWD.PACK PO ×2 (11:00→20:55)
[2022-07-21 11:02] LABS: Hepatitis B Core IgM Result Negative (Negative)
[2022-07-21 11:14] LABS: Hepatitis B Surface Anti Res Negative
--- NOTE | 2022-07-21 12:45 | WPDANESEPPF ---
Anes - Initial Pre Proc Eval Procedure: Operation Date: 07/21/22 13:00 Proposed Procedures p Incision and Debridement Bilateral Heels - Frankie Chan MD s Insertion Temporary Dialysis Catheter - Frankie Chan MD Date/Time: 07/21/22 12:45 Surgeon: Sánchez Pillai MD Pre Op Diagnosis: Acute Renal Failure Patient Data Age: 52 Gender: F Height: 1.68 m Weight: 118.4 kg Last Vital Signs Temp 36.9 C 07/21/22 11:01 Pulse 77 07/21/22 11:20 Resp 20 07/21/22 11:01 BP 142/106 H 07/21/22 11:00 Pulse Ox 93 07/21/22 11:20 O2 Del Method Mechanical Ventilation 07/21/22 11:20 O2 Flow Rate 4 07/18/22 13:48 FiO2 35 07/21/22 11:20 Allergies Allergy/AdvReac Type Severity Reaction Status Date / Time citalopram AdvReac Unknown Verified 01/17/22 12:40 varenicline [From Chantix] AdvReac Unknown Verified 01/17/22 12:40 Home Medications Medication Instructions Recorded Confirmed Type amlodipine 10 mg tablet 10 mg PO DAILY #30 tabs 08/09/19 07/18/22 Rx ascorbic acid (vitamin C) 500 mg 500 mg PO BID 08/03/21 07/18/22 History tablet aspirin 81 mg tablet,delayed 81 mg PO DAILY ##0 08/03/21 07/18/22 History release (Adult Low Dose Aspirin) atorvastatin 40 mg tablet 40 mg PO HS 08/03/21 07/18/22 History carvedilol 25 mg tablet 25 mg PO BID 08/03/21 07/18/22 History cholecalciferol (vitamin D3) 25 50 mcg PO DAILY 08/03/21 07/18/22 History mcg (1,000 unit) tablet clonidine 0.2 mg/24 hr weekly 1 patch transdermal WEEKLY 08/03/21 07/18/22 History transdermal patch escitalopram oxalate 10 mg tablet 10 mg PO DAILY 08/03/21 07/18/22 History hydroxyzine HCl 25 mg tablet 25 mg PO HS 08/03/21 07/18/22 History multivit with minerals-iron 18 1 tablet PO DAILY 08/03/21 07/18/22 History mg-folic ac 400 mcg-vit K 25 mcg tablet (Adults Multivitamin) olanzapine 5 mg tablet 5 mg PO HS 08/03/21 07/18/22 History quetiapine 150 mg tablet,extended 150 mg PO HS 08/03/21 07/18/22 History release 24 hr insulin lispro 100 unit/mL See Rx Instructions .Route .COMPLEX 10/02/21 07/18/22 History subcutaneous solution (Humalog U-100 Insulin) ipratropium bromide 0.02 % 0.5 mg inhalation Q6H PRN 10/02/21 07/18/22 History solution for inhalation Shortness Of Breath Or Wheezing ferrous sulfate 325 mg (65 mg 324 mg PO BIDWM #60 tabs 10/06/21 07/18/22 Rx iron) tablet tolnaftate 1 % topical powder 1 applic topical Q12HR #1 g 10/06/21 07/18/22 Rx benzonatate 100 mg capsule 100 mg PO TID PRN Cough #30 caps 11/07/21 07/18/22 Rx furosemide 40 mg tablet (Lasix) 40 mg PO DAILY #30 tabs 11/07/21 07/18/22 Rx miconazole nitrate 2 % topical 1 applic topical Q12HR #1,692 grams 11/07/21 07/18/22 Rx ointment ([place] Antifungal (miconazole)) albuterol sulfate 2.5 mg/0.5 mL 5 mg inhalation Q6HRT PRN 12/03/21 07/18/22 History solution for nebulization Shortness Of Breath Or Wheezing albuterol sulfate 90 mcg/actuation 1 inh inhalation QID PRN shortness 12/07/21 07/18/22 Rx aerosol inhaler (Ventolin HFA) of breath or wheezing #8.5 grams collagenase clostridium histo. 250 1 applic topical DAILY 05/02/22 07/18/22 History unit/gram topical ointment (Santyl) gabapentin 400 mg capsule 600 mg PO Q8H 05/02/22 07/18/22 History insulin lispro 100 unit/mL 10 unit subcut TIDWMEAL 05/02/22 07/18/22 History subcutaneous solution (Humalog U-100 Insulin) metolazone 2.5 mg tablet 2.5 mg PO EVERY OTHER DAY 05/02/22 07/18/22 History potassium chloride 20 mEq 20 meq PO EVERY OTHER DAY 05/02/22 07/18/22 History tablet,extended release(part/cryst) acetaminophen 300 mg-codeine 60 mg 1 tablet PO TID 07/18/22 07/18/22 History tablet acetaminophen 650 mg tablet 650 mg PO Q4H PRN Pain (Scale 07/18/22 07/18/22 History Score 1-3) ceftriaxone 2 gram/50 mL in 2 g IV DAILY 07/18/22 07/18/22 History dextrose (iso-osm) intravenous piggyback hydralazine 25 mg tablet 75 mg PO Q8H 07/18/22 07/18/22 History ins
--- NOTE | 2022-07-21 13:10 | PM.PNGS ---
Progress Note: A&P Assessment and Plan (1) Chronic heel ulcer: Code(s): L97.409 - Non-pressure chronic ulcer of unspecified heel and midfoot with unspecified severity Status: Acute Assessment and Plan: Patient will be going to the operating today for surgical debridement of the necrotic tissue in the bilateral heels. We will likely place wound vacs after debridement. Continue antibiotics. (2) Acute renal failure: Code(s): N17.9 - Acute kidney failure, unspecified Status: Acute Assessment and Plan: Decision has been made to proceed with hemodialysis. Given the necrotic wounds on the heels , I would not place a tunneled hemodialysis catheter at this time. Will go ahead and place a non tunneled temporary hemodialysis catheter in the OR at the same time as the heel debridement today. Consent for both procedures have been obtained from the patient's family. Subjective Subjective Date/Time Seen: 07/21/22 13:10 Interval history: Patient rated remains intubated but on minimal ventilation settings. Decision has been made to proceed with hemodialysis her she will need a temporary hemodialysis catheter placed during the surgery today for debridement of her bilateral heel ulcers. Tube feedings have been held since midnight. She has otherwise been hemodynamically stable. Exam Narrative: Right heel ulcer with 3 cm area of necrotic tissue with some drainage. No ascending redness on the right foot. The calcaneus heel bone is exposed and the right foot. Left foot with 2cm area of more superficial necrotic tissue. No rashes in the neck or anterior chest. Objective Data Vital Signs Vital Signs: Vital Signs - 24 hr 07/20/22 14:00 07/20/22 13:15 07/20/22 13:16 Temperature 37.2 C 37.2 C Pulse Rate 80 82 83 Respiratory Rate 20 20 Blood Pressure 185/93 H Pulse Oximetry 96 96 Oxygen Delivery Fraction of Inspired Oxygen 07/20/22 13:30 07/20/22 13:31 07/20/22 13:45 Temperature 37.2 C 37.2 C 37.2 C Pulse Rate 81 80 80 Respiratory Rate 20 20 20 Blood Pressure 188/97 H 180/93 H Pulse Oximetry 96 96 96 Oxygen Delivery Fraction of Inspired Oxygen 07/20/22 13:46 07/20/22 14:00 07/20/22 14:01 Temperature 37.2 C 37.2 C 37.2 C Pulse Rate 80 79 80 Respiratory Rate 20 20 20 Blood Pressure 187/96 H Pulse Oximetry 96 96 96 Oxygen Delivery Fraction of Inspired Oxygen 07/20/22 14:15 07/20/22 14:16 07/20/22 14:30 Temperature 37.2 C 37.2 C 37.2 C Pulse Rate 80 80 81 Respiratory Rate 20 20 20 Blood Pressure 181/93 H 189/99 H Pulse Oximetry 96 96 96 Oxygen Delivery Fraction of Inspired Oxygen 07/20/22 14:31 07/20/22 14:45 07/20/22 14:46 Temperature 37.2 C 37.2 C 37.2 C Pulse Rate 80 81 81 Respiratory Rate 20 20 20 Blood Pressure 182/95 H Pulse Oximetry 96 97 96 Oxygen Delivery Fraction of Inspired Oxygen 07/20/22 15:00 07/20/22 15:01 07/20/22 16:11 Temperature 37.2 C 37.2 C Pulse Rate 81 80 83 Respiratory Rate 20 20 Blood Pressure 190/98 H Pulse Oximetry 95 96 Oxygen Delivery Fraction of Inspired Oxygen 07/20/22 16:01 07/20/22 16:00 07/20/22 16:00 Temperature Pulse Rate 82 82 82 Respiratory Rate 20 Blood Pressure Pulse Oximetry 96 96 Oxygen Delivery Mechanical Ventilation Mechanical Ventilation Fraction of Inspired Oxygen 35 35 07/20/22 16:00 07/20/22 15:15 07/20/22 15:16 Temperature 37.2 C 37.2 C Pulse Rate 84 84 Respiratory Rate 20 20 Blood Pressure 187/101 H Pulse Oximetry 96 96 Oxygen Delivery Fraction of Inspired Oxygen 35 07/20/22 15:30 07/20/22 15:31 07/20/22 15:45 Temperature 37.2 C 37.2 C 37.2 C Pulse Rate 83 83 82 Respiratory Rate 20 20 20 Blood Pressure 187/96 H 188/97 H Pulse Oximetry 96 96 96 Oxygen Delivery Fraction of Inspired Oxygen 07/20/22 15:46 07/20/22 16:00 07/20/22 16:01 Temperature 37.2 C 37.2 C 37.2 C Pulse Rate 83 83 82 Respir
--- NOTE | 2022-07-21 13:16 | WPDHPUPDATE1 ---
History and Physical Update Update Date/Time: 07/21/22 13:16 History and Physical has been reviewed, including an updated exam of the patient. There are NO changes in the patient's condition. Risks, benefits, and alternatives have been discussed and questions answered. Patient agrees to proceed with procedure.
[2022-07-21 13:38] LABS: Glucose Point of Care 158 mg/dl (65-105)
[2022-07-21] MEDS: HEPARIN SODIUM, PORCINE 10,000 UNITS/10 ML VIAL 10 UNITS IV PUSH (14:21)
[2022-07-21] MEDS: HEPARIN SODIUM LOCK FLUSH 500 UNITS/5 ML SYRINGE 5000 UNITS IV PUSH (14:22)
--- NOTE | 2022-07-21 14:32 | SUR.OPER ---
Specimens handed to [place] at 1430
--- NOTE | 2022-07-21 15:59 | W.PM.PROC2 ---
Procedure Note - Detailed Date of Procedure 07/21/22 Pre-op Diagnosis Acute Renal Failure , bilateral heel ulcers. Post-op Diagnosis Same Procedure Performed 1. Bilateral heel ulcer debridements with sharp scissor and scalpel of bone, subcutaneous tissue, and skin with placement of bilateral heel wound vacs 50 sq cm). 2. Ultrasound-guided placement of non tunneled temporary right internal jugular vein Ian hemodialysis catheter with intraoperative fluoroscopy. Surgeon Frankie Chan MD [employer] Anesthesia General Indications patient is a [age]-year-old female from a assisted and is bedridden. She has chronic pressure heel ulcers bilaterally with necrotic tissue and exposed bone on the right heel. She is now intubated and also in acute renal failure and so she presents now for bilateral heel ulcer debridements as well as placement of wound vacs and placement of a non tunneled temporary hemodialysis catheter for anticipated hemodialysis. Findings Right heel ulcer had a 1cm area exposed calcaneus bone. There was some granulation tissue noted but there was a area of necrotic tissue consisting of subcutaneous tissue and skin extending for about 3cm cephalad from the calcaneus. After the debridement of the right heel wound measured 6cm in length by 5cm in with but there was a 3cm area of tunneling. The left heel had more superficial necrosis of the skin and subcutaneous tissue but no exposure of the bone. This area on the left heel measured 5cm in length by 4cm in with by 0.5cm in depth. There was no tunneling or exposed bone on the left heel ulcer. Wound vacs were placed on both wounds. The total area covered by both wound vacs together measured 50 sq cm. Description of Procedure After informed consent was obtained from the patient's family by telephone she was then taken directly from the intensive care unit to the operating room intubated and sedated. She was then transferred from the ICU bed to the operating table and then general anesthesia was induced. We 1st started by performing a time-out identifying the patient as well as procedure to be performed and no site marking was needed since this was a bilateral lower extremity procedure. She was already on scheduled IV antibiotics. For started by performing sharp scissor and scalpel debridement of the non viable tissue on the right heel. There was about a 1cm area of exposed calcaneus bone. There was a area necrotic tissue that was tunneling cephalad from the heel and after I completely excised the necrotic skin and soft tissue from this area the tunnel was about 3cm in length. I also utilized a rongeur and debrided the portion of the exposed bone at the base of the wound from the calcaneus. Some of the tissue which was necrotic from the tunnel was sent to pathology for tissue culture. Once I felt assured that all the necrotic tissue and bone had been debrided I then checked tissue and much of it was bleeding. I then placed Hermilo hemostatic agent onto the bleeding surfaces and held pressure on the area for about 5minutes. This did achieve hemostasis. I then turned my attention to the left heel where there was the more superficial pressure ulcer. Utilizing a sharp scalpel I excised away the skin and underlying necrotic subcutaneous tissue. The calcaneus bone was not exposed and not debrided. Once I had the tissue debrided down to good bleeding tissue I then measured the resulting wound it was 5cm length by 4cm in with by about 0.5cm in depth. Again Hermilo powder was used to achieve hemostasis . I then proceeded to apply black foam sponge to both of the wounds and nature of the guide sponge up into the 3cm tunnel on the right heel. I then applied a piece of clear adhesive dressing over the black foam on both heels and then cut away small disc of the cleared he has of dressing over the black foam. A radha pad suction disc was placed on each piece of the black foa
[2022-07-21 19:06] LABS: Glucose Point of Care 144 mg/dl (65-105)
[2022-07-22] VITALS (106 sets, daily range): BP systolic 106–175; BP diastolic 54–108; PULSE 63–97; RESP 17–30; TEMP 35.9–37.1; O2SAT 91–100
[2022-07-22] MEDS: carvediloL 12.5 MG TABLET PO (00:28)
[2022-07-22 00:38] LABS: Glucose Point of Care 136 mg/dl (65-105)
[2022-07-22 05:02] LABS: Hematocrit 29.8 % (37.0-47.0); Hemoglobin 9.7 g/dL (12.0-15.0); Mean Corpuscular HGB Conc 32.6 g/dl (32-36); Mean Corpuscular Hemoglobin 28.9 pg (26-34); Mean Corpuscular Volume 88.7 fl (80-100); Mean Platelet Volume 9.4 fl (7.4-10.4); Platelet Count Result 280 k/mm3 (150-375); Red Blood Count 3.36 M/mm3 (4.2-5.4); Red Cell Distribution Width 17.1 % (11.5-14.5)
[2022-07-22 05:13] LABS: Alanine Aminotransferase 16 U/L (6-35); Albumin Level 2.9 g/dL (3.5-5.1); Alkaline Phosphatase 80 U/L (38-126); Anion Gap 12 mmol/L (8-16); Aspartate Amino Transferase 17 U/L (14-36); Bilirubin,Total 0.4 mg/dL (0.2-1.3); Blood Urea Nitrogen 75 mg/dL (7-17); Calcium 7.6 mg/dL (8.4-10.2); Carbon Dioxide 24 mmol/L (22-30); Chloride 94 mmol/L (98-107); Estimated CRCL calculation 15 ml/min; Estimated Glomerular Filt Rate 8; Glucose 152 mg/dL (65-110); Phosphorus 10.9 mg/dL (2.5-4.5); Potassium 3.5 mmol/L (3.4-5.0); Sodium 130 mmol/L (137-145)
[2022-07-22 05:41] LABS: Alveolar/Arterial O2 Gradient 131.4 mmHg; Base Excess ABG -0.7 mEq/l (+/-2.0); Fractional Inspired Oxygen 35 %; HCO3 ABG 23.7 mEq/l (22.0-26.0); Oxygen Saturation ABG 94.9 % (95.0-100.0); PCO2 ABG 38.7 mmHg (35.0-45.0); PO2 ABG 73.2 mmHg (80.0-100.0); PO2 FiO2 Ratio Arterial Blood 2.09 %; pH ABG 7.405 (7.350-7.450)
[2022-07-22 05:43] LABS: Device VENTILATOR; Modified Allen's Test Pass; Site Drawn LEFT RADIAL
[2022-07-22 05:44] LABS: Arterial Blood Gas PEEP 5 cmH2O; Arterial Blood Gas Tidal Volume 380 ml; Arterial Blood Gas Vent Mode CMV; Arterial Blood Gas Ventilator rate 20 /MIN
[2022-07-22] MEDS: CENTRAL LINE FLUSH 10 ML IV PUSH ×3 (06:03→21:55)
--- NOTE | 2022-07-22 08:27 | WPDINTPN ---
Progress Note: A&P Assessment and Plan (1) Acute and chronic respiratory failure: Qualifiers: Respiratory failure complication: hypoxia and hypercapnia Qualified Code(s): J96.21 - Acute and chronic respiratory failure with hypoxia; J96.22 - Acute and chronic respiratory failure with hypercapnia Code(s): J96.20 - Acute and chronic respiratory failure, unspecified whether with hypoxia or hypercapnia Status: Acute Assessment and Plan: Acute Respiratory failure secondary to encephalopathy, renal failure, possible pneumonia CT chest on admission Focal subcutaneous emphysema of superomedial right chest wall Right upper extremity PIC catheter in very proximal superior vena cava Diffuse patchy groundglass density of the lungs suggesting small airways disease Bilateral lower lobe atelectasis/infiltrate Cardiomegaly Chest x-ray reviewed ABG and ventilator settings reviewed Continue full mechanical ventilation support to prevent hypoxemia/hypercarbia and end organ damage. Bronchodilators Sedation holiday and will attempt a weaning trial after hemodialysis today Empiric antibiotics as below (2) Acute osteomyelitis of right calcaneus: Code(s): M86.171 - Other acute osteomyelitis, right ankle and foot Status: Acute Assessment and Plan: Patient was on IV Rocephin as an outpatient. Currently on vancomycin and cefepime 07/21 Bilateral heel ulcer debridements with sharp scissor and scalpel of bone, subcutaneous tissue, and skin with placement of bilateral heel wound vacs 50 sq cm). now patient has wound VAC on both heels Continue empiric antibiotics vancomycin and cefepime Cultures have been negative till now (3) Pressure ulcer, heel, left, unstageable: Code(s): L89.620 - Pressure ulcer of left heel, unstageable Status: Acute Assessment and Plan: Status post debridement 07/21 wound care consult (4) Sepsis: Code(s): A41.9 - Sepsis, unspecified organism Status: Acute Assessment and Plan: UA suggestive of UTI. Patient also has osteomyelitis although wound does not look overly infected. Chest x-ray suggest pneumonia but again not very impressive. She also has a PICC line was recently placed Lactic acid was normal Her blood pressure was in fact elevated She has received significant amount IV fluids will hold further IV fluids at this time Urine sputum and blood cultures are ordered and negative now She is afebrile and WBC has normalized continue empiric antibiotics vanc and cefepime (5) Cvivv-ik-wmrbyky kidney injury: Code(s): N17.9 - Acute kidney failure, unspecified; N18.9 - Chronic kidney disease, unspecified Status: Acute Assessment and Plan: Baseline creatinine around 2. Presented with creatinine of 6.4 Renal ultrasound done and shows unremarkable kidneys with no hydronephrosis Potassium level has improved with Lokelma 07/21 temporary hemodialysis catheter was placed. Hemodialysis session was attempted but had to be discontinued due to low blood pressure. Patient had just returned from surgery and had general anesthesia and was also received antihypertensive medications in the morning. Blood pressure now improved. Plan for hemodialysis session today Case discussed with Dr. Aceves Although her urine output is reasonable with diuretics patient, she is still has volume overload and has creatinine remains elevated at 5.3 and BUN at 75 (6) Diabetes mellitus with hyperglycemia: Code(s): E11.65 - Type 2 diabetes mellitus with hyperglycemia Status: Acute Assessment and Plan: Sliding scale insulin (7) Encephalopathy acute: Code(s): G93.40 - Encephalopathy, unspecified Status: Acute Assessment and Plan: Head CT was negative for acute change Normal ammonia level Patient has been following commands on sedation holiday Plan DVT prophylaxis -Lovenox Stress ulcer prophylaxis -PPI Nutrition -continue Tube Fe
[2022-07-22] MEDS: ENOXAPARIN 30 MG/0.3 ML SYRINGE SUB-Q (08:52)
[2022-07-22] MEDS: MINERAL OIL/WHITE PETROLATUM OINTMENT 1 APPLIC EACH EYE ×2 (08:53→21:54)
[2022-07-22] MEDS: PANTOPRAZOLE SODIUM IV 40 MG VIAL IV PUSH (08:53)
[2022-07-22] MEDS: FUROSEMIDE INJ 100 MG/10 ML VIAL 80 MG IV PUSH ×2 (09:00→17:22)
--- NOTE | 2022-07-22 09:04 | PM.PNNEP ---
Progress Note: A&P Assessment and Plan (1) Razux-ku-tqanqsj kidney injury: Code(s): N17.9 - Acute kidney failure, unspecified; N18.9 - Chronic kidney disease, unspecified Status: Acute Assessment and Plan: The patient has chronic kidney disease. Baseline creatinine is around 2 and her GFR is reflective of stage 4 chronic kidney disease. It is unclear if she sees anybody as an outpatient as she cannot give a history. Most likely this is due to diabetes and high blood pressure. The patient has acute kidney injury as well. urine electrolytes are pre renal. Renal ultrasound is normal. UA shows a few white cells and few red cells. CK is high but not enough to cause kidney disease She has CHRIS, most likely due to prior hypotension, infection, ATN creatinine is slowly improving. She has diffuse swelling and chest x-ray showing fluid. Will try another dry ultrafiltration today. (2) Hyperkalemia: Code(s): E87.5 - Hyperkalemia Status: Acute Assessment and Plan: Resolved. (3) Metabolic acidosis with respiratory acidosis: Code(s): E87.4 - Mixed disorder of acid-base balance Status: Acute Assessment and Plan: improved (4) Sepsis: Code(s): A41.9 - Sepsis, unspecified organism Status: Acute Assessment and Plan: the patient has cultures done in and is on broad-spectrum antibiotics. Await culture results. (5) Hyperglycemia due to type 2 diabetes mellitus: Qualifiers: Diabetes mellitus custodial insulin use: with custodial use Qualified Code(s): E11.65 - Type 2 diabetes mellitus with hyperglycemia; Z79.4 - retirement (current) use of insulin Code(s): E11.65 - Type 2 diabetes mellitus with hyperglycemia Status: Acute Assessment and Plan: the patient is on Accu-Cheks and sliding scale insulin (6) Hypertension: Code(s): I10 - Essential (primary) hypertension Status: Acute Assessment and Plan: blood pressure is doing pretty well today. Subjective Date/time seen: 07/22/22 09:04 Interval history: Josy is intubated and sedated. On less sedatives. Dropped blood pressure yesterday on dialysis. Not much fluid removed Exam Narrative: WDWN Female intubated and sedated in the ICU in NAD skin no rash or subQ nodules head ncat lungs course bilateral breath sounds cor reg no rub abd BS+ nontender and soft ext 1 to2+ diffuse edema. Objective Data Vital Signs Vital Signs: Vital Signs - 24 hr 07/21/22 09:22 07/21/22 09:15 07/21/22 09:30 Temperature 98.4 F 98.4 F Pulse Rate 84 84 83 Respiratory Rate 20 20 Blood Pressure Pulse Oximetry 93 93 Oxygen Delivery Fraction of Inspired Oxygen 07/21/22 09:31 07/21/22 09:45 07/21/22 10:00 Temperature 98.4 F 98.4 F Pulse Rate 84 85 83 Respiratory Rate 20 20 Blood Pressure 162/82 H Pulse Oximetry 93 91 Oxygen Delivery Fraction of Inspired Oxygen 07/21/22 10:00 07/21/22 10:01 07/21/22 10:15 Temperature 98.4 F 98.4 F 98.4 F Pulse Rate 83 82 80 Respiratory Rate 20 20 20 Blood Pressure 126/70 Pulse Oximetry 91 91 91 Oxygen Delivery Fraction of Inspired Oxygen 07/21/22 10:30 07/21/22 10:31 07/21/22 10:45 Temperature 98.4 F 98.4 F 98.4 F Pulse Rate 79 78 78 Respiratory Rate 20 20 20 Blood Pressure 123/67 Pulse Oximetry 91 92 92 Oxygen Delivery Fraction of Inspired Oxygen 07/21/22 11:00 07/21/22 11:01 07/21/22 11:20 Temperature 98.4 F 98.4 F Pulse Rate 90 85 77 Respiratory Rate 16 20 Blood Pressure 142/106 H Pulse Oximetry 86 L 89 L 93 Oxygen Delivery Mechanical Ventilation Fraction of Inspired Oxygen 35 07/21/22 13:30 07/21/22 15:32 07/21/22 17:17 Temperature Pulse Rate 76 68 Respiratory Rate Blood Pressure Pulse Oximetry 95 93 Oxygen Delivery Mechanical Ventilation Mechanical Ventilation Mechanical Ventilation Fraction o
--- NOTE | 2022-07-22 10:21 | PCNFU ---
Nutrition Follow-Up Complete: Inadequate energy intake related to mechanical ventilation as evidenced by need for alternative nutrition support to meet estimated needs Goal:Meet estimated needs Pt current nutrition is NPO, Tube feedings: Nepro at 40ml/hr = 1584kcals, 71g protein. Nutrition recommendation: Continue with current plan of care. Last recorded weight is 118.7 kg. Bowel Motility: +BM 07/21 Labs Reviewed: Hgb:9.7, HCT:29.8, Alb:2.9, NA:130, GFR:8, BUN:75, Cr:5.3 Meds Noted: lovenox, lasix, zofran, protonix, propofol = 185kcals Skin: Left heel unstageable, Right heel stage IV Additional Notes: pt continues on Nepro tube feedings, tolerating well. Agree with diet orders Monitor tube feedings, wt, labs. Follow daily in ICU, Follow up every Thursday and Thursday.
[2022-07-22 10:30] LABS: Vancomycin Random 23.2 ug/mL (10-20)
--- NOTE | 2022-07-22 11:20 | WPDPN ---
Progress Note: A&P Assessment and Plan (1) Acute renal failure: Code(s): N17.9 - Acute kidney failure, unspecified Status: Acute Assessment and Plan: Nephrology plans another hemodialysis treatment today. Hopefully they will be able to complete a full treatment without issues with flows from the catheter. (2) Chronic heel ulcer: Code(s): L97.409 - Non-pressure chronic ulcer of unspecified heel and midfoot with unspecified severity Status: Acute Assessment and Plan: Bilateral wound vacs in place. Dressings will be changed by the wound care nurses. Subjective Date/time seen: 07/22/22 11:20 Interval history: Patient remains intubated in ICU. She underwent bilateral heel ulcer debridements and placement of a non tunneled for a Ian hemodialysis catheter in the right internal jugular vein and yesterday. Hemodialysis nurse states that the catheter is somewhat positional and they had to reverse the flows yesterday to get some fluid off the patient. Today they will try again for longer hemodialysis treatment. Exam Narrative: Bilateral heel wounds have wound vacs in place. Normal output from the wound vacs. No redness around the heels and spreading proximally up the distal leg. Hemodialysis catheter site in the right neck is clean and dry. Objective Data Vital Signs Vital Signs: Vital Signs - 24 hr 07/21/22 13:30 07/21/22 15:32 07/21/22 17:17 Temperature Pulse Rate 76 68 Respiratory Rate Blood Pressure Pulse Oximetry 95 93 Oxygen Delivery Mechanical Ventilation Mechanical Ventilation Mechanical Ventilation Fraction of Inspired Oxygen 35 35 35 07/21/22 12:00 07/21/22 12:00 07/21/22 12:00 Temperature Pulse Rate 75 75 Respiratory Rate 20 Blood Pressure Pulse Oximetry 95 Oxygen Delivery Mechanical Ventilation Fraction of Inspired Oxygen 35 35 07/21/22 16:00 07/21/22 16:00 07/21/22 16:00 Temperature Pulse Rate 73 64 Respiratory Rate 20 Blood Pressure Pulse Oximetry 90 Oxygen Delivery Mechanical Ventilation Fraction of Inspired Oxygen 35 35 07/21/22 16:00 07/21/22 16:07 07/21/22 16:15 Temperature 36.4 C L Pulse Rate 74 78 65 Respiratory Rate 20 Blood Pressure 127/75 124/57 L 110/54 L Pulse Oximetry 96 Oxygen Delivery Fraction of Inspired Oxygen 07/21/22 16:30 07/21/22 16:45 07/21/22 17:00 Temperature Pulse Rate 68 61 70 Respiratory Rate Blood Pressure 91/50 L 81/45 L 87/50 L Pulse Oximetry Oxygen Delivery Fraction of Inspired Oxygen 07/21/22 17:02 07/21/22 17:05 07/21/22 11:30 Temperature 35.5 C L 36.9 C Pulse Rate 68 71 77 Respiratory Rate 20 20 Blood Pressure 87/52 L 107/56 L 125/74 Pulse Oximetry 99 94 Oxygen Delivery Fraction of Inspired Oxygen 07/21/22 11:31 07/21/22 11:45 07/21/22 12:00 Temperature 36.9 C 36.9 C 36.9 C Pulse Rate 77 76 76 Respiratory Rate 20 20 20 Blood Pressure 126/74 Pulse Oximetry 94 94 95 Oxygen Delivery Fraction of Inspired Oxygen 07/21/22 12:01 07/21/22 12:15 07/21/22 12:30 Temperature 36.9 C 36.9 C 36.9 C Pulse Rate 75 75 74 Respiratory Rate 20 20 20 Blood Pressure 130/73 Pulse Oximetry 95 95 95 Oxygen Delivery Fraction of Inspired Oxygen 07/21/22 12:31 07/21/22 12:45 07/21/22 13:00 Temperature 36.9 C 36.9 C 36.9 C Pulse Rate 74 74 74 Respiratory Rate 20 20 20 Blood Pressure 133/75 Pulse Oximetry 95 95 95 Oxygen Delivery Fraction of Inspired Oxygen 07/21/22 13:01 07/21/22 13:12 07/21/22 13:15 Temperature 36.9 C Pulse Rate 75 80 87 Respiratory Rate 20 20 20 Blood Pressure 133/75 Pulse Oximetry 95 91 90 Oxygen Delivery Fraction of Inspired Oxygen 07/21/22 15:08 07/21/22 15:09 07/21/22 15:14 Temperature Pulse Rate 69 69 74 Respiratory Rate 16 11 L 19 Blood Pressure 84/51 L 79/53 L Pulse Oximetry 100 100 99 Oxygen Delivery Fraction of Inspired Oxyg
[2022-07-22 11:48] LABS: Triglycerides 274 mg/dL (<150)
[2022-07-22 12:50] LABS: Glucose Point of Care 165 mg/dl (65-105)
[2022-07-22] MEDS: PROPOFOL IV EMULSION 100 ML 17.58 MG IV CONT ×3 (12:50→23:57)
[2022-07-22] MEDS: COSYNTROPIN 0.25 MG/ML VIAL IV PUSH (15:09)
[2022-07-22 15:29] LABS: Cortisol Baseline 8.99 ug/dL
[2022-07-22 17:24] LABS: Glucose Point of Care 206 mg/dl (65-105)
[2022-07-22] MEDS: INSULIN ASPART (*BKC) 100 UNITS/ML SUB-Q (18:00)
[2022-07-22] MEDS: cloNIDine HCL 0.1 MG TABLET FEED TUBE (18:33)
[2022-07-22] MEDS: LABETALOL HCL INJ 100 MG/20 ML VIAL 20 MG IV PUSH (20:15)
[2022-07-22] MEDS: hydrALAZINE HCL 20 MG/ML VIAL IV PUSH (23:08)
[2022-07-23] VITALS (21 sets, daily range): BP systolic 79–177; BP diastolic 53–83; PULSE 67–86; RESP 7–24; TEMP 35.7–37.1; O2SAT 91–97
[2022-07-23] MEDS: INSULIN ASPART (*BKC) 100 UNITS/ML SUB-Q (00:05)
[2022-07-23] MEDS: PROPOFOL IV EMULSION 100 ML 17.58 MG IV CONT (04:15)
[2022-07-23 04:25] LABS: Hematocrit 31.7 % (37.0-47.0); Hemoglobin 10.4 g/dL (12.0-15.0); Mean Corpuscular HGB Conc 32.8 g/dl (32-36); Mean Corpuscular Hemoglobin 28.6 pg (26-34); Mean Corpuscular Volume 87.1 fl (80-100); Mean Platelet Volume 9.4 fl (7.4-10.4); Platelet Count Result 286 k/mm3 (150-375); Red Blood Count 3.64 M/mm3 (4.2-5.4); Red Cell Distribution Width 16.7 % (11.5-14.5); White Blood Count 8.1 K/mm3 (4.5-10.0)
[2022-07-23] MEDS: CENTRAL LINE FLUSH 10 ML IV PUSH ×3 (04:28→22:00)
[2022-07-23 04:32] LABS: Glucose Point of Care 160 mg/dl (65-105)
[2022-07-23 04:45] LABS: Alveolar/Arterial O2 Gradient 140.1 mmHg; Base Excess ABG 0.7 mEq/l (+/-2.0); Carboxyhemoglobin 0.3 % THb (0-2.0); Fractional Inspired Oxygen 35 %; HCO3 ABG 23.5 mEq/l (22.0-26.0); Methemoglobin ABG 0.4 %THb (0-1.5); Oxygen Content ABG 14.9 %vol (16.0-22.0); Oxygen Saturation ABG 95.8 % (95.0-100.0); Oxyhemoglobin 93.4 % THb (90.0-100.0); PCO2 ABG 31.9 mmHg (35.0-45.0); PO2 ABG 72.4 mmHg (80.0-100.0); PO2 FiO2 Ratio Arterial Blood 2.07 %; Reduced Hemoglobin 5.9 %THb (0-5.0); Total Hemoglobin 11.3 g/dL (12.0-18.0); pH ABG 7.486 (7.350-7.450)
[2022-07-23 04:46] LABS: Alanine Aminotransferase 17 U/L (6-35); Albumin Level 3.1 g/dL (3.5-5.1); Alkaline Phosphatase 83 U/L (38-126); Anion Gap 14 mmol/L (8-16); Aspartate Amino Transferase 19 U/L (14-36); Bilirubin,Total 0.4 mg/dL (0.2-1.3); Blood Urea Nitrogen 77 mg/dL (7-17); Carbon Dioxide 25 mmol/L (22-30); Chloride 93 mmol/L (98-107); Estimated CRCL calculation 15 ml/min; Estimated Glomerular Filt Rate 9; Glucose 148 mg/dL (65-110); Potassium 2.8 mmol/L (3.4-5.0); Sodium 132 mmol/L (137-145)
[2022-07-23 04:50] LABS: Arterial Blood Gas PEEP 5 cmH2O; Arterial Blood Gas Vent Mode CMV; Arterial Blood Gas Ventilator rate 20 /MIN; Device VENTILATOR; Modified Allen's Test Pass; Site Drawn LEFT RADIAL
[2022-07-23 04:51] LABS: Arterial Blood Gas Tidal Volume 380 ml
[2022-07-23] MEDS: POTASSIUM CHLORIDE 20 MEQ PACKET (FOR LIQUID) 40 MEQ FEED TUBE (06:26)
[2022-07-23] MEDS: KCL 40 MEQ/WATER 100 ML 100 ML 25 ML IVPB (06:26)
[2022-07-23] MEDS: LABETALOL HCL INJ 100 MG/20 ML VIAL 20 MG IV PUSH (06:27)
--- NOTE | 2022-07-23 07:48 | WPDINTPN ---
Progress Note: A&P Assessment and Plan (1) Acute and chronic respiratory failure: Qualifiers: Respiratory failure complication: hypoxia and hypercapnia Qualified Code(s): J96.21 - Acute and chronic respiratory failure with hypoxia; J96.22 - Acute and chronic respiratory failure with hypercapnia Code(s): J96.20 - Acute and chronic respiratory failure, unspecified whether with hypoxia or hypercapnia Status: Acute Assessment and Plan: Acute Respiratory failure secondary to encephalopathy, renal failure, possible pneumonia CT chest on admission Focal subcutaneous emphysema of superomedial right chest wall Right upper extremity PIC catheter in very proximal superior vena cava Diffuse patchy groundglass density of the lungs suggesting small airways disease Bilateral lower lobe atelectasis/infiltrate Cardiomegaly Chest x-ray reviewed ABG and ventilator settings reviewed I placed patient on sedation holiday and will attempt a weaning trial today Continue full mechanical ventilation support to prevent hypoxemia/hypercarbia and end organ damage. Bronchodilators Empiric antibiotics as below (2) Acute osteomyelitis of right calcaneus: Code(s): M86.171 - Other acute osteomyelitis, right ankle and foot Status: Acute Assessment and Plan: Patient was on IV Rocephin as an outpatient. Currently on vancomycin and cefepime 07/21 Bilateral heel ulcer debridements with sharp scissor and scalpel of bone, subcutaneous tissue, and skin with placement of bilateral heel wound vacs 50 sq cm). now patient has wound VAC on both heels Continue empiric antibiotics vancomycin and cefepime right heel wound culture is growing Gram-positive cocci and Gram-negative bacilli. Cultures have been negative (3) Pressure ulcer, heel, left, unstageable: Code(s): L89.620 - Pressure ulcer of left heel, unstageable Status: Acute Assessment and Plan: Status post debridement 07/21 and currently has wound VAC wound care following (4) Sepsis: Code(s): A41.9 - Sepsis, unspecified organism Status: Acute Assessment and Plan: UA suggestive of UTI. Patient also has osteomyelitis although wound does not look overly infected. Chest x-ray suggest pneumonia but again not very impressive. She also has a PICC line was recently placed Lactic acid was normal Her blood pressure was in fact elevated She has received significant amount IV fluids will hold further IV fluids at this time Urine sputum and blood cultures are ordered and negative now She is afebrile and WBC has normalized continue empiric antibiotics vanc and cefepime right heel wound cultures growing Gram-positive cocci and Gram-negative bacilli. Cultures have been negative (5) Nodjx-tb-djqhheq kidney injury: Code(s): N17.9 - Acute kidney failure, unspecified; N18.9 - Chronic kidney disease, unspecified Status: Acute Assessment and Plan: Baseline creatinine around 2. Presented with creatinine of 6.4 Renal ultrasound done and shows unremarkable kidneys with no hydronephrosis Potassium level has improved with Lokelma 07/21 temporary hemodialysis catheter was placed. Hemodialysis session was attempted but had to be discontinued due to low blood pressure. Patient had just returned from surgery and had general anesthesia and was also received antihypertensive medications in the morning. 07/22 ultrafiltration was done but only 1 L fluid was removed due to catheter. She continues to have good urine output in response to Lasix although creatinine remained elevated Blood pressure now improved. Plan for hemodialysis session today nephrology following (6) Diabetes mellitus with hyperglycemia: Code(s): E11.65 - Type 2 diabetes mellitus with hyperglycemia Status: Acute Assessment and Plan: Sliding scale insulin (7) Encephalopathy acute: Code(s): G93.40 - Encephalopathy, unspecified Status: Acute
[2022-07-23] MEDS: FUROSEMIDE INJ 100 MG/10 ML VIAL 80 MG IV PUSH ×2 (08:16→17:11)
[2022-07-23] MEDS: MINERAL OIL/WHITE PETROLATUM OINTMENT 1 APPLIC EACH EYE (08:16)
[2022-07-23] MEDS: PANTOPRAZOLE SODIUM IV 40 MG VIAL IV PUSH (08:16)
[2022-07-23] MEDS: ENOXAPARIN 30 MG/0.3 ML SYRINGE SUB-Q (08:16)
[2022-07-23] MEDS: amLODIPine BESYLATE 5 MG TABLET PO (08:38)
[2022-07-23] MEDS: carvediloL 12.5 MG TABLET PO (08:38)
--- NOTE | 2022-07-23 08:42 | PM.PNNEP ---
Progress Note: A&P Assessment and Plan (1) Qwwmv-ee-rafgttw kidney injury: Code(s): N17.9 - Acute kidney failure, unspecified; N18.9 - Chronic kidney disease, unspecified Status: Acute Assessment and Plan: The patient has chronic kidney disease. Baseline creatinine is around 2 and her GFR is reflective of stage 4 chronic kidney disease. It is unclear if she sees anybody as an outpatient as she cannot give a history. Most likely this is due to diabetes and high blood pressure. The patient has acute kidney injury as well. urine electrolytes are pre renal. Renal ultrasound is normal. UA shows a few white cells and few red cells. CK is high but not enough to cause kidney disease She has CHRIS, most likely due to prior hypotension, infection, ATN creatinine is slowly improving. It is down to 5.1 today. It is a come down by 0.2 every day for the last 4 days. She is making some urine. Intake/ output was 1300 in and 2600 out and only 1002 that was dialysis. Her blood pressure seems to be pretty good except when she is on dialysis. why she drops her blood pressure is unclear. Her echocardiogram shows pretty good heart and no pericardial effusion. Cortrosyn stimulation test was normal. Perhaps she just has 3rd spaced fluid. Her chest x-ray does show mild pulmonary edema, however her FiO2 is only 35% in her minute volume is not very high either. Will increase diuretics and see how she does. Will talk with Dr. Lugo about the pluses and minuses of continued attempts at dry ultrafiltration. (2) Hyperkalemia: Code(s): E87.5 - Hyperkalemia Status: Acute Assessment and Plan: Resolved. (3) Metabolic acidosis with respiratory acidosis: Code(s): E87.4 - Mixed disorder of acid-base balance Status: Acute Assessment and Plan: improved (4) Sepsis: Code(s): A41.9 - Sepsis, unspecified organism Status: Acute Assessment and Plan: the patient has cultures done in and is on broad-spectrum antibiotics. Blood and urine cultures are negative. Wound cultures are preliminary. G stain of course shows some g positives and g negatives as expected. 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 She is on carvedilol and low dose amlodipine Subjective Date/time seen: 07/23/22 08:42 Interval history: Josy is intubated . Sedatives on hold temporarily to assess mental status. This just happened and she is not very alert right now. Dropped blood pressure yesterday on dialysis. Levophed was attempted but the blood pressure was still low. Not much fluid removed Exam Narrative: WDWN Female intubated and sedated in the ICU in NAD skin no rash or subQ nodules head ncat lungs course bilateral breath sounds cor reg no rub abd BS+ nontender and soft ext 1 + diffuse edema. Objective Data Vital Signs Vital Signs: Vital Signs - 24 hr 07/22/22 09:45 07/22/22 09:49 07/22/22 10:00 Temperature 97.8 F Pulse Rate 66 65 66 Respiratory Rate 20 Blood Pressure 120/57 L 128/63 106/57 L Pulse Oximetry 97 Oxygen Delivery Fraction of Inspired Oxygen 07/22/22 10:15 07/22/22 10:30 07/22/22 10:45 Temperature Pulse Rate 65 65 69 Respiratory Rate Blood Pressure 106/55 L 168/75 H 174/69 H Pulse Oximetry Oxygen Delivery Fraction of Inspired Oxygen 07/22/22 11:00
[2022-07-23 09:01] LABS: Alveolar/Arterial O2 Gradient 125.3 mmHg; Base Excess ABG -1.6 mEq/l (+/-2.0); Fractional Inspired Oxygen 35 %; HCO3 ABG 22.9 mEq/l (22.0-26.0); Oxygen Content ABG 14.6 %vol (16.0-22.0); Oxygen Saturation ABG 95.9 % (95.0-100.0); Oxyhemoglobin 93.6 % THb (90.0-100.0); PCO2 ABG 37.8 mmHg (35.0-45.0); PO2 ABG 80.3 mmHg (80.0-100.0); PO2 FiO2 Ratio Arterial Blood 2.29 %
[2022-07-23 09:02] LABS: Arterial Blood Gas PEEP 5 cmH2O; Arterial Blood Gas Pressure Support 5 cmH2O; Arterial Blood Gas Vent Mode SPONTANEOUS; Device VENTILATOR; Modified Allen's Test Pass; Site Drawn LEFT RADIAL
[2022-07-23] MEDS: metOLazone 5 MG TABLET PO (09:19)
--- NOTE | 2022-07-23 11:08 | PCFNICU ---
ICU Rounding Note: Pt current nutrition is NPO. Nutrition recommendation: Swallow evaluation to determine textures/safe swallow. Last recorded weight is 113.8 kg. Bowel Motility: +1 07/22/22 Labs Reviewed: hgb 10.4, Hct 31.7, Alb 3.1, Na 132, K+ 2.8, eGFR 9, BUN 77, Cre 5.1 Meds Noted: Lovenox, Lasix, protonix, zofran. Sedation is off Skin: Unstageable L heel. Stage IV R heel Additional Notes: Pt was extubated today. Sedation and tube feedings are discontinued. Awaiting speech evaluation for safe swallow. Following daily in ICU rounds. Monitor for restart of tube feedings. Follow daily in ICU, Follow up every Thursday and Thursday. .
[2022-07-23 11:27] LABS: Glucose Point of Care 168 mg/dl (65-105)
[2022-07-23 11:52] LABS: Glucose Point of Care 211 mg/dl (65-105)
[2022-07-23 12:49] LABS: Anion Gap 11 mmol/L (8-16); Blood Urea Nitrogen 78 mg/dL (7-17); Calcium 7.8 mg/dL (8.4-10.2); Carbon Dioxide 26 mmol/L (22-30); Chloride 95 mmol/L (98-107); Estimated CRCL calculation 15 ml/min; Estimated Glomerular Filt Rate 9; Glucose 155 mg/dL (65-110); Potassium 3.6 mmol/L (3.4-5.0); Sodium 132 mmol/L (137-145)
--- NOTE | 2022-07-23 15:17 | WPDPN ---
Progress Note: A&P Assessment and Plan (1) Chronic heel ulcer: Code(s): L97.409 - Non-pressure chronic ulcer of unspecified heel and midfoot with unspecified severity Status: Acute Assessment and Plan: Debrided bilateral heel ulcers look good. Wound vacs dressings were changed today with the wound care nurse at the bedside. No need for further debridement. (2) Acute renal failure: Code(s): N17.9 - Acute kidney failure, unspecified Status: Acute Assessment and Plan: Patient is able to have hemodialysis through the temporary right internal jugular vein Ian hemodialysis catheter. Management as per Nephrology. Subjective Date/time seen: 07/23/22 15:17 Interval history: The patient was successfully extubated today. She appears to be hemodynamically stable. She has been able to tolerate some hemodialysis with removal of some excess fluid. The bilateral heel wound VAC dressings were removed today and the wounds look clean without further need for surgical debridement. Exam Narrative: Bilateral heel ulcers clean without necrotic tissue. Viable granulation tissue bleed easily but stops with pressure. Wound measurements were taken and are documented in the wound care nurse's notes. No spreading cellulitic changes ascending on the bilateral lower legs or on the feet. Objective Data Vital Signs Vital Signs: Vital Signs - 24 hr 07/22/22 16:00 07/22/22 16:00 07/22/22 16:00 Temperature Pulse Rate 71 71 Respiratory Rate 20 Blood Pressure Pulse Oximetry 97 Oxygen Delivery Mechanical Ventilation Oxygen Flow Rate Fraction of Inspired Oxygen 35 35 07/22/22 15:30 07/22/22 15:45 07/22/22 16:00 Temperature 36.1 C L 36.1 C L 36.1 C L Pulse Rate 74 73 70 Respiratory Rate 20 20 20 Blood Pressure Pulse Oximetry 97 98 97 Oxygen Delivery Oxygen Flow Rate Fraction of Inspired Oxygen 07/22/22 16:02 07/22/22 16:15 07/22/22 16:30 Temperature 36.1 C L 36.1 C L 36.1 C L Pulse Rate 73 70 73 Respiratory Rate 20 20 20 Blood Pressure 137/66 Pulse Oximetry 97 98 98 Oxygen Delivery Oxygen Flow Rate Fraction of Inspired Oxygen 07/22/22 16:51 07/22/22 18:00 07/22/22 16:45 Temperature 36.1 C L Pulse Rate 74 70 75 Respiratory Rate 18 Blood Pressure Pulse Oximetry 97 96 Oxygen Delivery Mechanical Ventilation Oxygen Flow Rate Fraction of Inspired Oxygen 35 07/22/22 17:00 07/22/22 17:01 07/22/22 17:15 Temperature 36.1 C L 36.2 C L 36.2 C L Pulse Rate 74 73 70 Respiratory Rate 21 H 20 20 Blood Pressure 157/76 H Pulse Oximetry 97 97 97 Oxygen Delivery Oxygen Flow Rate Fraction of Inspired Oxygen 07/22/22 17:30 07/22/22 17:45 07/22/22 18:00 Temperature 36.2 C L 36.2 C L 36.1 C L Pulse Rate 70 71 71 Respiratory Rate 20 20 20 Blood Pressure Pulse Oximetry 96 96 96 Oxygen Delivery Oxygen Flow Rate Fraction of Inspired Oxygen 07/22/22 18:02 07/22/22 19:33 07/22/22 20:00 Temperature 36.1 C L 36.2 C L Pulse Rate 71 73 74 Respiratory Rate 20 20 Blood Pressure 167/73 H 173/79 H Pulse Oximetry 96 97 97 Oxygen Delivery Mechanical Ventilation Oxygen Flow Rate Fraction of Inspired Oxygen 35 07/22/22 20:00 07/22/22 20:00 07/22/22 20:00 Temperature Pulse Rate 75 Respiratory Rate Blood Pressure Pulse Oximetry 97 Oxygen Delivery Mechanical Ventilation Oxygen Flow Rate Fraction of Inspired Oxygen 35 35 07/22/22 20:15 07/22/22 21:00 07/22/22 22:00 Temperature Pulse Rate 75 85 Respiratory Rate Blood Pressure 162/70 H Pulse Oximetry Oxygen Delivery Oxygen Flow Rate Fraction of Inspired Oxygen 07/22/22 22:00 07/22/22 23:00 07/22/22 23:32 Temperature 36.2 C L Pulse Rate 85 78 80 Respiratory Rate 20 Blood Pressure 147/108 H 175/96 H Pulse Oximetry 94 96 Oxygen Delivery Mechanical Ventilation Oxygen Flow Rate
[2022-07-23 15:34] LABS: Osmolality, Urine 285 mOsm/kg (50-1200)
--- NOTE | 2022-07-23 15:59 | PCSTNOTE ---
Patient seen for bedside swallowing evaluation. Trials of thin liquids (water) were given by spoon in 3ml amounts. Patient was noted to cough following water boluses by spoon. Pureed consistency was trialed by spoon in 3 ml amounts. Again, patient was noted to cough following boluses. Bedside swallow study was stopped and nurse consulted. NPO is recommended at this time. A modified barium swallow study is also recommended for this patient. Thank you for the referral of this patient.
[2022-07-23 18:21] LABS: Glucose Point of Care 124 mg/dl (65-105)
--- NOTE | 2022-07-23 19:08 | PM.IMPN ---
Progress Note: A&P Assessment and Plan (1) Acute and chronic respiratory failure: Qualifiers: Respiratory failure complication: hypoxia and hypercapnia Qualified Code(s): J96.21 - Acute and chronic respiratory failure with hypoxia; J96.22 - Acute and chronic respiratory failure with hypercapnia Code(s): J96.20 - Acute and chronic respiratory failure, unspecified whether with hypoxia or hypercapnia Status: Acute Assessment and Plan: Acute Respiratory failure secondary to encephalopathy, sepsis, renal failure and possibly pneumonia. CT chest on admission showing focal SQ emphysema right supoeromedial chest wall, difuse patchy ground glass density of the lungs with bilateral LL airspace disease. ABG 7.08//72. Patient was intubated 07/18. Patient had clinical improvement. Able to tolerate vent wean. Patient extubated on 07/23. Sputum culutre negative. MRSA nasal swab negative. Continue bronchodilators and empiric antibiotics as below (2) Acute osteomyelitis of right calcaneus: Code(s): M86.171 - Other acute osteomyelitis, right ankle and foot Status: Acute Assessment and Plan: Patient was on IV Rocephin as an outpatient for osteo?. Currently on vancomycin and cefepime. Patient underwent bilateral heel ulcer debridements with sharp scissor and scalpel of bone, subcutaneous tissue, and skin with placement of bilateral heel wound vac on 07/21. BCx NGTD. Wound Cx growing EColi, Enterococcus avium and Providencia from right heel. Continue empiric antibiotics vancomycin and cefepime (3) Sepsis: Code(s): A41.9 - Sepsis, unspecified organism Status: Acute Assessment and Plan: UA suggestive of UTI by UCx negative. Patient also has osteomyelitis although wound does not look overly infected. Chest x-ray suggest pneumonia but again not very impressive. She also has a PICC line was recently placed but BCx NGTD. Lactic acid was normal Her blood pressure was in fact elevated She is afebrile and WBC has normalized Continue empiric antibiotics vanc and cefepime (4) Pressure ulcer, heel, left, unstageable: Code(s): L89.620 - Pressure ulcer of left heel, unstageable Status: Acute Assessment and Plan: Status post debridement 07/21 and currently has wound VAC. Wound care following. As above (5) Bpntr-tt-ynzpymf kidney injury: Code(s): N17.9 - Acute kidney failure, unspecified; N18.9 - Chronic kidney disease, unspecified Status: Acute Assessment and Plan: Baseline creatinine around 2. Presented with creatinine of 6.4. She had metabolic acidosis and hyperkalemia. Renal ultrasound shows unremarkable kidneys with no hydronephrosis Potassium level has improved with Lokelma 07/21 temporary hemodialysis catheter was placed. Hemodialysis session was attempted but had to be discontinued due to low blood pressure. Patient had just returned from surgery and had general anesthesia and was also received antihypertensive medications in the morning. 07/22 ultrafiltration was done but only 1 L fluid was removed due to catheter. She continues to have good urine output in response to Lasix although creatinine remained elevated Blood pressure now improved. Plan for hemodialysis session today. Apprecaite nephrology input (6) Diabetes mellitus with hyperglycemia: Code(s): E11.65 - Type 2 diabetes mellitus with hyperglycemia Status: Acute Assessment and Plan: Sliding scale insulin (7) Encephalopathy acute: Code(s): G93.40 - Encephalopathy, unspecified Status: Acute Assessment and Plan: Head CT was negative for acute change Normal ammonia level [place] AMS related to above. Patient improved. Follow (8) Electrolyte abnormality: Code(s): E87.8 - Other disorders of electrolyte and fluid balance, not elsewhere classified Status: Acute Assessment and Plan: low potassium replacement ordered r
[2022-07-24] VITALS (19 sets, daily range): BP systolic 111–193; BP diastolic 60–109; PULSE 62–81; RESP 6–17; TEMP 35.9–37; O2SAT 92–97
[2022-07-24 00:24] LABS: Glucose Point of Care 126 mg/dl (65-105)
[2022-07-24 04:54] LABS: Glucose Point of Care 116 mg/dl (65-105)
[2022-07-24 05:26] LABS: Hematocrit 31.5 % (37.0-47.0); Hemoglobin 9.8 g/dL (12.0-15.0); Mean Corpuscular HGB Conc 31.1 g/dl (32-36); Mean Corpuscular Hemoglobin 28.5 pg (26-34); Mean Corpuscular Volume 91.6 fl (80-100); Mean Platelet Volume 9.5 fl (7.4-10.4); Platelet Count Result 248 k/mm3 (150-375); Red Blood Count 3.44 M/mm3 (4.2-5.4); Red Cell Distribution Width 16.7 % (11.5-14.5)
[2022-07-24 05:38] LABS: Alanine Aminotransferase 13 U/L (6-35); Albumin Level 2.9 g/dL (3.5-5.1); Alkaline Phosphatase 86 U/L (38-126); Anion Gap 10 mmol/L (8-16); Aspartate Amino Transferase 18 U/L (14-36); Bilirubin,Total 0.5 mg/dL (0.2-1.3); Blood Urea Nitrogen 76 mg/dL (7-17); Calcium 7.7 mg/dL (8.4-10.2); Carbon Dioxide 28 mmol/L (22-30); Chloride 98 mmol/L (98-107); Estimated CRCL calculation 15 ml/min; Estimated Glomerular Filt Rate 9; Glucose 111 mg/dL (65-110); Phosphorus 10.3 mg/dL (2.5-4.5); Potassium 3.4 mmol/L (3.4-5.0); Sodium 136 mmol/L (137-145); Triglycerides 320 mg/dL (<150)
[2022-07-24] MEDS: CENTRAL LINE FLUSH 10 ML IV PUSH ×3 (06:14→20:48)
--- NOTE | 2022-07-24 08:43 | WPDINTPN ---
Progress Note: A&P Assessment and Plan (1) Acute and chronic respiratory failure: Qualifiers: Respiratory failure complication: hypoxia and hypercapnia Qualified Code(s): J96.21 - Acute and chronic respiratory failure with hypoxia; J96.22 - Acute and chronic respiratory failure with hypercapnia Code(s): J96.20 - Acute and chronic respiratory failure, unspecified whether with hypoxia or hypercapnia Status: Acute Assessment and Plan: Acute Respiratory failure secondary to encephalopathy, renal failure, possible pneumonia CT chest on admission Focal subcutaneous emphysema of superomedial right chest wall Right upper extremity PIC catheter in very proximal superior vena cava Diffuse patchy groundglass density of the lungs suggesting small airways disease Bilateral lower lobe atelectasis/infiltrate Cardiomegaly 07/24 extubated after a successful weaning trial. Well on nasal cannula add incentive spirometry Chest x-ray reviewed continue but decrease dose of diuretics Empiric antibiotics as below (2) Acute osteomyelitis of right calcaneus: Code(s): M86.171 - Other acute osteomyelitis, right ankle and foot Status: Acute Assessment and Plan: Patient was on IV Rocephin as an outpatient. Currently on vancomycin and cefepime 07/21 Bilateral heel ulcer debridements with sharp scissor and scalpel of bone, subcutaneous tissue, and skin with placement of bilateral heel wound vacs 50 sq cm). now patient has wound VAC on both heels Continue empiric antibiotics vancomycin and cefepime right heel wound culture is growing Providencia rettgeri Escherichia Coli Enterococcus avium blood Cultures have been negative (3) Pressure ulcer, heel, left, unstageable: Code(s): L89.620 - Pressure ulcer of left heel, unstageable Status: Acute Assessment and Plan: Status post debridement 07/21 and currently has wound VAC wound care following (4) Sepsis: Code(s): A41.9 - Sepsis, unspecified organism Status: Acute Assessment and Plan: UA suggestive of UTI. Patient also has osteomyelitis although wound does not look overly infected. Chest x-ray suggest pneumonia but again not very impressive. She also has a PICC line was recently placed Lactic acid was normal Her blood pressure was in fact elevated She has received significant amount IV fluids and now on diuretics Urine sputum and blood cultures are ordered and negative now She is afebrile and WBC has normalized Right heel wound culture is growing Providencia rettgeri Escherichia Coli Enterococcus avium Continue empiric antibiotics vanc and cefepime (5) Vnukh-qi-kzgkkox kidney injury: Code(s): N17.9 - Acute kidney failure, unspecified; N18.9 - Chronic kidney disease, unspecified Status: Acute Assessment and Plan: Baseline creatinine around 2. Presented with creatinine of 6.4 Renal ultrasound done and shows unremarkable kidneys with no hydronephrosis Potassium level has improved with Lokelma 07/21 temporary hemodialysis catheter was placed. Hemodialysis session was attempted but had to be discontinued due to low blood pressure. Patient had just returned from surgery and had general anesthesia and was also received antihypertensive medications in the morning. 07/22 ultrafiltration was done but only 1 L fluid was removed due to catheter. She continues to have good urine output in response to Lasix although creatinine remained elevated Blood pressure has improved significantly. I will decrease the dose of diuretics today nephrology following (6) Diabetes mellitus with hyperglycemia: Code(s): E11.65 - Type 2 diabetes mellitus with hyperglycemia Status: Acute Assessment and Plan: Sliding scale insulin (7) Encephalopathy acute: Code(s): G93.40 - Encephalopathy, unspecified Status: Acute Assessment and Plan: Head CT was negative for acute change Normal omar
--- NOTE | 2022-07-24 09:02 | PM.IMPN ---
Progress Note: A&P Assessment and Plan (1) Acute and chronic respiratory failure: Qualifiers: Respiratory failure complication: hypoxia and hypercapnia Qualified Code(s): J96.21 - Acute and chronic respiratory failure with hypoxia; J96.22 - Acute and chronic respiratory failure with hypercapnia Code(s): J96.20 - Acute and chronic respiratory failure, unspecified whether with hypoxia or hypercapnia Status: Acute Assessment and Plan: Acute Respiratory failure secondary to encephalopathy, sepsis, renal failure and possibly pneumonia. CT chest 07/18 on admission showing focal SQ emphysema right superomedial chest wall, diffuse patchy ground glass density of the lungs with bilateral LL airspace disease. ABG 7.08//72. Patient was intubated 07/18. Patient had clinical improvement. Fluid status improved. Able to tolerate vent wean. Patient extubated on 07/23. Sputum culture negative. MRSA nasal swab negative. No right chest wall SQ crepitus. Weaned to 3L. Has hypopnea when sleeping. She has CONNOR but intolerant to BiPAP. Will perform apnea link on 3L. Continue bronchodilators and empiric antibiotics as below. (2) Acute osteomyelitis of right calcaneus: Code(s): M86.171 - Other acute osteomyelitis, right ankle and foot Status: Acute Assessment and Plan: Patient was on IV Rocephin as an outpatient for osteo?. Currently on vancomycin and cefepime. Patient underwent bilateral heel ulcer debridements with sharp scissor and scalpel of bone, subcutaneous tissue, and skin with placement of bilateral heel wound vac on 07/21. BCx NGTD. Wound Cx growing EColi, Enterococcus avium and Providencia from right heel. Continue empiric antibiotics vancomycin and cefepime. Appreciate general surgery input. (3) Sepsis: Code(s): A41.9 - Sepsis, unspecified organism Status: Acute Assessment and Plan: UA suggestive of UTI but UCx negative. Patient also has osteomyelitis although wound does not look overly infected. Chest x-ray suggest pneumonia but again not very impressive. She also has a PICC line was recently placed but BCx NGTD. Lactic acid was normal She is afebrile and WBC has normalized Continue empiric antibiotics vanc and cefepime (4) Pressure ulcer, heel, left, unstageable: Code(s): L89.620 - Pressure ulcer of left heel, unstageable Status: Acute Assessment and Plan: Status post debridement 07/21 and currently has wound VAC. Wound care following. As above (5) Ekmyd-ou-xmssqwl kidney injury: Code(s): N17.9 - Acute kidney failure, unspecified; N18.9 - Chronic kidney disease, unspecified Status: Acute Assessment and Plan: Baseline creatinine around 2. Presented with creatinine of 6.4. She had metabolic acidosis and hyperkalemia. Renal ultrasound shows unremarkable kidneys with no hydronephrosis Potassium level has improved with Lokelma 07/21 temporary hemodialysis catheter was placed. Hemodialysis session was attempted but had to be discontinued due to low blood pressure. Patient had just returned from surgery and had general anesthesia and was also received antihypertensive medications in the morning. 07/22 ultrafiltration was done but only 1 L fluid was removed due to catheter. She continues to have good urine output in response to Lasix and metolazone although creatinine remains elevated Blood pressure noted. Appreciate nephrology input (6) Diabetes mellitus with hyperglycemia: Code(s): E11.65 - Type 2 diabetes mellitus with hyperglycemia Status: Acute Assessment and Plan: A1c 7.0. The patient's blood glucose was reviewed on 07/24 Glucose remains well controlled. Continue AccuCheks covering with sliding scale. Hypoglycemia protocol available as needed. Continue current medications. (7) Encephalopathy acute: Code(s): G93.40 - Encephalopathy, unspecified Status: Acute Assessment and Plan: He
[2022-07-24] MEDS: FUROSEMIDE INJ 40 MG/4 ML VIAL IV PUSH (09:17)
[2022-07-24] MEDS: PANTOPRAZOLE SODIUM IV 40 MG VIAL IV PUSH (09:17)
[2022-07-24] MEDS: ENOXAPARIN 30 MG/0.3 ML SYRINGE SUB-Q (09:18)
[2022-07-24] MEDS: KCL 40 MEQ/WATER 100 ML 100 ML 25 ML IVPB (09:35)
--- NOTE | 2022-07-24 10:52 | PCFNICU ---
ICU Rounding Note: Pt current nutrition is NPO. Last recorded weight is 112 kg. Bowel Motility:+Bm reported 07/22 Labs Reviewed:TG 320,BUN 76, Cr 5.2,Na 136, Hct 31.5,Hgb 9.8 Meds Noted:Lasix, Zofran, Lovenox, Protonix Skin: left heel-unstageable pressure ulcer, right heel-IV pressure ulcer Additional Notes: Patient has bee extubated. NPO at this time. Plans for MBS this afternoon. Will continue to monitor for diet supplements. Recommend Casimiro BID if allowed oral diet. Following daily in ICU rounds. Reassess every 3 days.
[2022-07-24 11:58] LABS: Glucose Point of Care 97 mg/dl (65-105)
--- NOTE | 2022-07-24 14:40 | PM.PNNEP ---
Progress Note: A&P Assessment and Plan (1) Zlrkc-rq-vvjehtb kidney injury: Code(s): N17.9 - Acute kidney failure, unspecified; N18.9 - Chronic kidney disease, unspecified Status: Acute Assessment and Plan: The patient has chronic kidney disease. Baseline creatinine is around 2 and her GFR is reflective of stage 4 chronic kidney disease. It is unclear if she sees anybody as an outpatient as she cannot give a history. Most likely this is due to diabetes and high blood pressure. The patient has acute kidney injury as well. urine electrolytes are pre renal. Renal ultrasound is normal. UA shows a few white cells and few red cells. CK is high but not enough to cause kidney disease She has CHRIS, most likely due to prior hypotension, infection, ATN creatinine had been falling but now seems to have stabilized. Yesterday was 5.1 and today it is 5.2. She is getting high-dose diuretics. Yesterday's intake/ output was 773/2685. Over diet it was . Diuretics decreased from 80 b.i.d. to 80 once a day and now 40 once a day. She is making some urine. Intake/ output was 1300 in and 2600 out and only 1002 that was dialysis. (2) Hyperkalemia: Code(s): E87.5 - Hyperkalemia Status: Acute Assessment and Plan: Resolved. (3) Metabolic acidosis with respiratory acidosis: Code(s): E87.4 - Mixed disorder of acid-base balance Status: Acute Assessment and Plan: improved (4) Sepsis: Code(s): A41.9 - Sepsis, unspecified organism Status: Acute Assessment and Plan: the patient has cultures done in and is on Vancomycin and cefepime.. Blood and urine cultures are negative. Wound cultures are preliminary. G stain of course shows some g positives and g negatives as expected. (5) Hyperglycemia due to type 2 diabetes mellitus: Qualifiers: Diabetes mellitus shelter insulin use: with shelter use Qualified Code(s): E11.65 - Type 2 diabetes mellitus with hyperglycemia; Z79.4 - snf (current) use of insulin Code(s): E11.65 - Type 2 diabetes mellitus with hyperglycemia Status: Acute Assessment and Plan: the patient is on Accu-Cheks and sliding scale insulin (6) Hypertension: Code(s): I10 - Essential (primary) hypertension Status: Acute Assessment and Plan: blood pressure is doing pretty well today. She is on carvedilol and low dose amlodipine Subjective Date/time seen: 07/24/22 14:40 Interval history: Josy is Looking much better. Extubated. She is about to go down for a swallowing study. Exam Narrative: WDWN Female intubated and sedated in the ICU in [facility] skin no rash or subQ nodules head ncat lungs course bilateral breath sounds cor reg no rub or gallop abd BS+ nontender and soft ext Trace edema Objective Data Vital Signs Vital Signs: Vital Signs - 24 hr 07/23/22 16:00 07/23/22 16:00 07/23/22 17:00 Temperature 98.7 F Pulse Rate 67 79 Respiratory Rate 9 L Blood Pressure 79/55 L 136/68 Pulse Oximetry 91 93 Oxygen Delivery Nasal Cannula Oxygen Flow Rate 1.5 07/23/22 16:45 07/23/22 16:00 07/23/22 18:00 Temperature Pulse Rate 74 68 78 Respiratory Rate Blood Pressure 117/61 Pulse Oximetry Oxygen Delivery Oxygen Flow Rate 07/23/22 18:00 07/23/22 20:00 07/23/22 20:00 Temperature 98.6 F 98.7 F Pulse Rate 78 79 79 Respiratory Rate 8 L 7 L Blood Pressure 122/70 114/61 Pulse Oximetry 93 95 Oxygen Delivery Oxygen Flow Rate 07/23/22 20:00 07/23/22 22:00 07/23/22 22:00 Temperature 98.7 F Pulse Rate 78 78 Respiratory Rate 15 Blood Pressure 104/53 L Pulse Oximetry 95 94 Oxygen Delivery Nasal Cannula Oxygen Flow Rate 1.5 07/24/22 00:00 07/24/22 00:00 07/24/22 00:00 Temperature 98.6 F Pulse Rate 77 62 Respiratory Rate 16 Blood Pressure 115/66 Pulse Oximetry
--- NOTE | 2022-07-24 15:27 | PCSTNOTE ---
Please refer to the Modified Barium Swallow Evaluation in the EMR.
[2022-07-24] MEDS: carvediloL 12.5 MG TABLET PO ×2 (16:22→20:48)
[2022-07-24 17:04] LABS: Glucose Point of Care 121 mg/dl (65-105)
[2022-07-24] MEDS: LABETALOL HCL INJ 100 MG/20 ML VIAL 20 MG IV PUSH (17:41)
[2022-07-24 19:04] LABS: Chloride Rand Ur 44 mmol/L (32-290); Chloride/Creatinine Rand Ur 60 (38-318); Creatinine Random Urine 73 mg/dL (20-275)
[2022-07-24 20:51] LABS: Glucose Point of Care 128 mg/dl (65-105)
[2022-07-25] VITALS (11 sets, daily range): BP systolic 143–177; BP diastolic 66–92; PULSE 67–76; RESP 8–20; TEMP 36.2–37.1; O2SAT 93–100
[2022-07-25] MEDS: CENTRAL LINE FLUSH 10 ML IV PUSH ×3 (05:16→21:22)
[2022-07-25 05:24] LABS: Hematocrit 31.5 % (37.0-47.0); Hemoglobin 9.8 g/dL (12.0-15.0); Mean Corpuscular HGB Conc 31.1 g/dl (32-36); Mean Corpuscular Hemoglobin 27.5 pg (26-34); Mean Corpuscular Volume 88.5 fl (80-100); Mean Platelet Volume 9.3 fl (7.4-10.4); Platelet Count Result 217 k/mm3 (150-375); Red Blood Count 3.56 M/mm3 (4.2-5.4); Red Cell Distribution Width 16.1 % (11.5-14.5)
[2022-07-25 05:42] LABS: Alanine Aminotransferase 15 U/L (6-35); Albumin Level 3.3 g/dL (3.5-5.1); Alkaline Phosphatase 79 U/L (38-126); Anion Gap 12 mmol/L (8-16); Aspartate Amino Transferase 22 U/L (14-36); Bilirubin,Total 0.5 mg/dL (0.2-1.3); Blood Urea Nitrogen 74 mg/dL (7-17); Carbon Dioxide 25 mmol/L (22-30); Chloride 97 mmol/L (98-107); Estimated CRCL calculation 16 ml/min; Estimated Glomerular Filt Rate 10; Glucose 110 mg/dL (65-110); Magnesium 1.9 mg/dL (1.6-2.3); Phosphorus 10.1 mg/dL (2.5-4.5); Potassium 4.1 mmol/L (3.4-5.0); Sodium 134 mmol/L (137-145)
[2022-07-25 06:09] LABS: Vancomycin Random 18.6 ug/mL (10-20)
[2022-07-25 08:14] LABS: Glucose Point of Care 98 mg/dl (65-105)
[2022-07-25] MEDS: ENOXAPARIN 30 MG/0.3 ML SYRINGE SUB-Q (08:37)
[2022-07-25] MEDS: carvediloL 12.5 MG TABLET PO ×2 (08:37→21:21)
[2022-07-25] MEDS: FUROSEMIDE INJ 40 MG/4 ML VIAL IV PUSH (08:37)
[2022-07-25] MEDS: PANTOPRAZOLE SODIUM IV 40 MG VIAL IV PUSH (08:37)
--- NOTE | 2022-07-25 09:05 | PM.PNNEP ---
Progress Note: A&P Assessment and Plan (1) Hlkxq-nt-ietglsl kidney injury: Code(s): N17.9 - Acute kidney failure, unspecified; N18.9 - Chronic kidney disease, unspecified Status: Acute Assessment and Plan: The patient has chronic kidney disease. Baseline creatinine is around 2 and her GFR is reflective of stage 4 chronic kidney disease. It is unclear if she sees anybody as an outpatient as she cannot give a history. Most likely this is due to diabetes and high blood pressure. The patient has acute kidney injury as well. urine electrolytes are pre renal. Renal ultrasound is normal. UA shows a few white cells and few red cells. CK is high but not enough to cause kidney disease She has CHRIS, most likely due to prior hypotension, infection, ATN Creatinine fell to 4.7 today. Just on Lasix 40 mg a day. Sodium barely low. Potassium is fine. Bicarbonate is 25. Will check another lab tomorrow. Continue diuretics as long as creatinine is improving. (2) Hyperkalemia: Code(s): E87.5 - Hyperkalemia Status: Acute Assessment and Plan: Resolved. (3) Metabolic acidosis with respiratory acidosis: Code(s): E87.4 - Mixed disorder of acid-base balance Status: Acute Assessment and Plan: Resolved (4) Sepsis: Code(s): A41.9 - Sepsis, unspecified organism Status: Acute Assessment and Plan: the patient has cultures done on Vancomycin and cefepime.. Blood and urine cultures are negative. Wound cultures are preliminary. G stain of course shows some g positives and g negatives as expected. (5) Hyperglycemia due to type 2 diabetes mellitus: Qualifiers: Diabetes mellitus mcfp insulin use: with mcfp use Qualified Code(s): E11.65 - Type 2 diabetes mellitus with hyperglycemia; Z79.4 - financial services manager (current) use of insulin Code(s): E11.65 - Type 2 diabetes mellitus with hyperglycemia Status: Acute Assessment and Plan: the patient is on Accu-Cheks and sliding scale insulin (6) Hypertension: Code(s): I10 - Essential (primary) hypertension Status: Acute Assessment and Plan: blood pressure is doing pretty well today. She is on carvedilol and low dose amlodipine Subjective Date/time seen: 07/25/22 09:05 Interval history: Josy is feeling okay. She wants to eat. Breathing okay. Resting comfortably in bed in semi-Gibbons's position Exam Narrative: WDWN Female intubated and sedated in the ICU in NAD skin no rash or subQ nodules head ncat lungs lungs fairly clear. cor reg no rub or gallop abd BS+ nontender and soft ext almost no edema Objective Data Vital Signs Vital Signs: Vital Signs - 24 hr 07/24/22 10:07 07/24/22 10:00 07/24/22 11:58 Temperature 96.7 F L 96.6 F L Pulse Rate 71 77 Respiratory Rate 6 L 13 Blood Pressure 128/68 125/79 Pulse Oximetry 97 97 95 Oxygen Delivery Nasal Cannula Oxygen Flow Rate 2 07/24/22 10:00 07/24/22 12:00 07/24/22 10:26 Temperature Pulse Rate 71 73 Respiratory Rate Blood Pressure Pulse Oximetry 93 Oxygen Delivery Nasal Cannula Oxygen Flow Rate 1 07/24/22 14:00 07/24/22 14:00 07/24/22 16:22 Temperature 97 F L Pulse Rate 67 67 69 Respiratory Rate 17 Blood Pressure 165/109 H Pulse Oximetry 97 Oxygen Delivery Oxygen Flow Rate 07/24/22 12:00 07/24/22 16:00 07/24/22 16:00 Temperature 96.9 F L Pulse Rate 67 Respiratory Rate 6 L Blood Pressure 155/81 H Pulse Oximetry 95 94 94 Oxygen Delivery Nasal Cannula Nasal Cannula Oxygen Flow Rate 1.5 1.5 07/24/22 16:00 07/24/22 17:41 07/24/22 17:35 Temperature Pulse Rate 67 70 Respiratory Rate Blood Pressure 193/100 H Pulse Oximetry Oxygen Delivery Oxygen Flow Rate 07/24/22 18:01 07/24/22 20:48 07/24/22 20:00 Temperature Pulse Rate 72 Respiratory Rate Blood Pressure 16
--- NOTE | 2022-07-25 11:19 | PCNFU ---
Nutrition Follow-Up Complete: Inadequate energy intake related to mechanical ventilation as evidenced by need for alternative nutrition support to meet estimated needs Meet estimated needs-progressing towards goal. Resume tube feedings at a goal rate of 45ml/hr to better meet nutrition needs-met goal. Pt current nutrition is Pureed, Level 4/DBCC Nutrition recommendation: Casimiro BID Last recorded weight is 111.2 kg. Bowel Motility:+BM reported 07/24 Labs Reviewed:Cr 4.7,K 4.7,BUN 74, GFR 10, Alb 3.3,Na 134, Hgb 9.8 Meds Noted:Lasix,Protonix, Lovenox, Zofran Skin: Left heel-unstageable pressure ulcer. right heel-stage IV pressure ulcer. Additional Notes: Diet order has advanced to a Pureed, Level 4/DBCC. Oral Intake 100% of meals. Diet supplements of Glucerna shakes have been added providing an additional 220 kcals and 10 gms protein. Recommend protein modular of Casimiro BID for wound healing. Monitor: reassessing every 5 days.
[2022-07-25 11:39] LABS: Glucose Point of Care 127 mg/dl (65-105)
--- NOTE | 2022-07-25 12:41 | PM.IMPN ---
Progress Note: A&P Assessment and Plan (1) Acute and chronic respiratory failure: Qualifiers: Respiratory failure complication: hypoxia and hypercapnia Qualified Code(s): J96.21 - Acute and chronic respiratory failure with hypoxia; J96.22 - Acute and chronic respiratory failure with hypercapnia Code(s): J96.20 - Acute and chronic respiratory failure, unspecified whether with hypoxia or hypercapnia Status: Acute Assessment and Plan: Acute Respiratory failure secondary to encephalopathy, sepsis, renal failure and possibly pneumonia. CT chest 07/18 on admission showing focal SQ emphysema right superomedial chest wall, diffuse patchy ground glass density of the lungs with bilateral LL airspace disease. ABG 7.08//72. Patient was intubated 07/18. Patient had clinical improvement. Fluid status improved. Able to tolerate vent wean. Patient extubated on 07/23. Sputum culture negative. MRSA nasal swab negative. No right chest wall SQ crepitus. Weaned to 2L. Has hypopnea when sleeping but no hypoxia with apnea link on 3L. She has CONNOR but intolerant to BiPAP. Continue bronchodilators and empiric antibiotics as below. (2) Acute osteomyelitis of right calcaneus: Code(s): M86.171 - Other acute osteomyelitis, right ankle and foot Status: Acute Assessment and Plan: Patient was on IV Rocephin as an outpatient for osteo?. Currently on vancomycin and cefepime. Patient underwent bilateral heel ulcer debridements with sharp scissor and scalpel of bone, subcutaneous tissue, and skin with placement of bilateral heel wound vac on 07/21. BCx NGTD. Rt heel wound Cx growing ESBL EColi, Enterococcus avium and Providencia from right heel. Lt heel wound Cx growing Staph haemolytics Sensitivities still pending for enterococcus and will have lab do sensitivities for Enterococcus. Continue empiric antibiotics vancomycin and cefepime for now but narow abx once more information obtained. Appreciate general surgery input. (3) Sepsis: Code(s): A41.9 - Sepsis, unspecified organism Status: Acute Assessment and Plan: UA suggestive of UTI but UCx negative. Patient also has osteomyelitis and cellulitis. Chest x-ray suggest pneumonia but again not very impressive. She also has a PICC line was recently placed but BCx NGTD. Lactic acid was normal She is afebrile and WBC has normalized Continue empiric antibiotics (4) Pressure ulcer, heel, left, unstageable: Code(s): L89.620 - Pressure ulcer of left heel, unstageable Status: Acute Assessment and Plan: Status post debridement 07/21 and currently has wound VAC. Wound care following. As above (5) Khvrf-ft-hjllthm kidney injury: Code(s): N17.9 - Acute kidney failure, unspecified; N18.9 - Chronic kidney disease, unspecified Status: Acute Assessment and Plan: Baseline creatinine around 2. Presented with creatinine of 6.4. She had metabolic acidosis and hyperkalemia. Renal ultrasound shows unremarkable kidneys with no hydronephrosis Potassium level has improved with Lokelma 07/21 temporary hemodialysis catheter was placed. Hemodialysis session was attempted but had to be discontinued due to low blood pressure. Patient had just returned from surgery and had general anesthesia and was also received antihypertensive medications in the morning. 07/22 ultrafiltration was done but only 1 L fluid was removed due to catheter. She continues to have good urine output in response to Lasix although creatinine remains elevated Blood pressure noted. Appreciate nephrology input (6) Diabetes mellitus with hyperglycemia: Code(s): E11.65 - Type 2 diabetes mellitus with hyperglycemia Status: Acute Assessment and Plan: A1c 7.0. The patient's blood glucose was reviewed on 07/25 Glucose remains well controlled. Continue AccuCheks covering with sliding scale. Hypoglycemia protocol available as needed. Continue lucy
[2022-07-25 17:17] LABS: Glucose Point of Care 120 mg/dl (65-105)
[2022-07-25] MEDS: ERTAPENEM SODIUM 0.5 GM in SODIUM CHLORIDE 0.9% IV 50 ML IVPB (19:47)
[2022-07-25 21:21] LABS: Glucose Point of Care 143 mg/dl (65-105)
--- NOTE | 2022-07-25 23:31 | PC.NURSE ---
This patient, Josy Perez, was transferred to [[facility] ] on 07/25/22 at 2307. Personal belongings sent with patient. Report given to [ Aubrie]. Appropriate documentation sent with patient.
[2022-07-26] VITALS (12 sets, daily range): BP systolic 136–169; BP diastolic 69–87; PULSE 64–77; RESP 12–20; TEMP 36.4–37.3; O2SAT 92–98
--- NOTE | 2022-07-26 04:43 | PC.NURSE ---
PT CONTINUES TO PULL OFF 02. I HAVE PLACED THE NC BACK ON THE PT MULTIPLE TIMES THROUGHOUT THE SHIFT PT IS ON 2L. PT NOW REFUSING TO WEAR NC STATING IT STINKS. 02 SAT 92% ON ROOM AIR.
[2022-07-26] MEDS: CENTRAL LINE FLUSH 10 ML IV PUSH ×2 (05:35→14:57)
[2022-07-26 05:41] LABS: Glucose Point of Care 124 mg/dl (65-105)
[2022-07-26 05:57] LABS: Hematocrit 31.6 % (37.0-47.0); Hemoglobin 9.9 g/dL (12.0-15.0); Mean Corpuscular HGB Conc 31.3 g/dl (32-36); Mean Corpuscular Volume 89.3 fl (80-100); Mean Platelet Volume 9.7 fl (7.4-10.4); Platelet Count Result 183 k/mm3 (150-375); Red Blood Count 3.54 M/mm3 (4.2-5.4); Red Cell Distribution Width 15.7 % (11.5-14.5); White Blood Count 9.8 K/mm3 (4.5-10.0)
[2022-07-26 06:10] LABS: Alanine Aminotransferase 15 U/L (6-35); Albumin Level 3.1 g/dL (3.5-5.1); Alkaline Phosphatase 82 U/L (38-126); Anion Gap 11 mmol/L (8-16); Aspartate Amino Transferase 26 U/L (14-36); Bilirubin,Total 0.5 mg/dL (0.2-1.3); Blood Urea Nitrogen 70 mg/dL (7-17); Calcium 7.8 mg/dL (8.4-10.2); Carbon Dioxide 27 mmol/L (22-30); Chloride 98 mmol/L (98-107); Estimated CRCL calculation 17 ml/min; Estimated Glomerular Filt Rate 11; Glucose 119 mg/dL (65-110); Magnesium 1.7 mg/dL (1.6-2.3); Potassium 3.7 mmol/L (3.4-5.0); Sodium 136 mmol/L (137-145)
[2022-07-26 07:56] LABS: Glucose Point of Care 134 mg/dl (65-105)
--- NOTE | 2022-07-26 08:03 | PM.PNNEP ---
Progress Note: A&P Assessment and Plan (1) Grejq-sr-qhqfzdb kidney injury: Code(s): N17.9 - Acute kidney failure, unspecified; N18.9 - Chronic kidney disease, unspecified Status: Acute Assessment and Plan: The patient has chronic kidney disease. Baseline creatinine is around 2 and her GFR is reflective of stage 4 chronic kidney disease. It is unclear if she sees anybody as an outpatient as she cannot give a history. Most likely this is due to diabetes and high blood pressure. The patient has acute kidney injury as well. urine electrolytes are pre renal. Renal ultrasound is normal. UA shows a few white cells and few red cells. CK is high but not enough to cause kidney disease She has CHRIS, most likely due to prior hypotension, infection, ATN She is on diuretics. Intake/output was 1300 in 2700 out. Creatinine fell to 4.3 today. Electrolytes doing well. Will change Lasix to p.o.. Check another lab tomorrow (2) Hyperkalemia: Code(s): E87.5 - Hyperkalemia Status: Acute Assessment and Plan: Resolved. (3) Metabolic acidosis with respiratory acidosis: Code(s): E87.4 - Mixed disorder of acid-base balance Status: Acute Assessment and Plan: Resolved (4) Sepsis: Code(s): A41.9 - Sepsis, unspecified organism Status: Acute Assessment and Plan: the patient has cultures done on Vancomycin and cefepime.. No fever. White count looks okay. (5) Hyperglycemia due to type 2 diabetes mellitus: Qualifiers: Diabetes mellitus skilled nursing insulin use: with skilled nursing use Qualified Code(s): E11.65 - Type 2 diabetes mellitus with hyperglycemia; Z79.4 - senior care (current) use of insulin Code(s): E11.65 - Type 2 diabetes mellitus with hyperglycemia Status: Acute Assessment and Plan: the patient is on Accu-Cheks and sliding scale insulin (6) Hypertension: Code(s): I10 - Essential (primary) hypertension Status: Acute Assessment and Plan: blood pressure is a bit high. Will change amlodipine to diltiazem because of all the protein in the urine. LVEF 60-65%. Subjective Date/time seen: 07/26/22 08:03 Interval history: Josy is feeling okay. She moved out of the ICU. Breathing comfortably lying flat in bed. Not much swelling Exam Narrative: WDWN Female intubated and sedated in the ICU in NAD skin no rash or subQ nodules head ncat lungs lungs clear to auscultation cor reg no rub or gallop abd BS+ nontender and soft ext almost no edema Objective Data Vital Signs Vital Signs: Vital Signs - 24 hr 07/25/22 08:37 07/25/22 12:23 07/25/22 12:00 Temperature 97.3 F L Pulse Rate 68 71 69 Respiratory Rate 13 Blood Pressure 151/84 H Pulse Oximetry 93 Oxygen Delivery Oxygen Flow Rate 07/25/22 16:00 07/25/22 16:00 07/25/22 21:21 Temperature 97.1 F L Pulse Rate 68 68 74 Respiratory Rate 20 Blood Pressure 177/92 H Pulse Oximetry 98 Oxygen Delivery Oxygen Flow Rate 07/25/22 20:00 07/25/22 20:00 07/25/22 20:00 Temperature 97.4 F L Pulse Rate 75 70 Respiratory Rate 20 Blood Pressure 147/66 H Pulse Oximetry 100 100 Oxygen Delivery Nasal Cannula Oxygen Flow Rate 2 07/26/22 00:00 07/26/22 00:00 07/26/22 04:45 Temperature 97.6 F Pulse Rate 77 75 Respiratory Rate 12 Blood Pressure 164/87 H Pulse Oximetry 97 92 Oxygen Delivery Room Air Oxygen Flow Rate 07/26/22 04:00 07/26/22 06:00 Temperature 99.2 F Pulse Rate 75 74 Respiratory Rate 14 Blood Pressure 169/83 H Pulse Oximetry 95 Oxygen Delivery Oxygen Flow Rate Intake/Output Intake/Output: Intake & Output 07/23/22 07/24/22 07/25/22 07/26/22 23:59 23:59 23:59 23:59 Intake Total 523 682 0904 200 Output Total 4707 7873 [address] [facility] -1912 -3035 -1390 -1100 Meds/Results Medications: Active Medications
[2022-07-26] MEDS: ENOXAPARIN 30 MG/0.3 ML SYRINGE SUB-Q (08:17)
[2022-07-26] MEDS: carvediloL 12.5 MG TABLET PO ×2 (08:17→21:06)
[2022-07-26] MEDS: PANTOPRAZOLE SODIUM IV 40 MG VIAL IV PUSH (08:18)
[2022-07-26] MEDS: FUROSEMIDE 40 MG TABLET PO (09:50)
[2022-07-26] MEDS: dilTIAZem HCL CD 180 MG CAP.ER.24H PO (09:50)
[2022-07-26 12:41] LABS: Glucose Point of Care 127 mg/dl (65-105)
--- NOTE | 2022-07-26 16:19 | PM.IMPN ---
Progress Note: A&P Assessment and Plan (1) Acute and chronic respiratory failure: Qualifiers: Respiratory failure complication: hypoxia and hypercapnia Qualified Code(s): J96.21 - Acute and chronic respiratory failure with hypoxia; J96.22 - Acute and chronic respiratory failure with hypercapnia Code(s): J96.20 - Acute and chronic respiratory failure, unspecified whether with hypoxia or hypercapnia Status: Acute Assessment and Plan: Acute Respiratory failure secondary to encephalopathy, sepsis, renal failure and possibly pneumonia. CT chest 07/18 on admission showing focal SQ emphysema right superomedial chest wall, diffuse patchy ground glass density of the lungs with bilateral LL airspace disease. ABG 7.08//72. Patient was intubated 07/18. Patient had clinical improvement. Fluid status improved. Able to tolerate vent wean. Patient extubated on 07/23. Sputum culture negative. MRSA nasal swab negative. No right chest wall SQ crepitus. Weaned to room air. Has hypopnea when sleeping but no hypoxia with apnea link on 3L. She has CONNOR but intolerant to BiPAP. Continue bronchodilators and empiric antibiotics as below. Continue O2 at 3L while sleeping. (2) Acute osteomyelitis of right calcaneus: Code(s): M86.171 - Other acute osteomyelitis, right ankle and foot Status: Acute Assessment and Plan: Patient was on IV Rocephin as an outpatient for osteo?. Started on vancomycin and cefepime. Patient underwent bilateral heel ulcer debridements with sharp scissor and scalpel of bone, subcutaneous tissue, and skin with placement of bilateral heel wound vac on 07/21. BCx NGTD. Rt heel wound Cx growing ESBL EColi, Enterococcus avium and Providencia from right heel. Lt heel wound Cx growing Staph haemolytics Sensitivities noted for most of the isolates but still pending for enterococcus. Antibiotics narrowed to Ertapenem. Appreciate general surgery input. Plan for 6 weeks of IV abx. PICC line in place. (3) Sepsis: Code(s): A41.9 - Sepsis, unspecified organism Status: Acute Assessment and Plan: UA suggestive of UTI but UCx negative. Source of sepsis most likely heel osteomyelitis and cellulitis. Chest x-ray suggest pneumonia but again not very impressive. She also has a PICC line was recently placed but BCx NGTD. Lactic acid was normal. She is afebrile and WBC has normalized. Continue antibiotics as above (4) Pressure ulcer, heel, left, unstageable: Code(s): L89.620 - Pressure ulcer of left heel, unstageable Status: Acute Assessment and Plan: Status post debridement 07/21 and currently has wound VAC. Wound care following. As above (5) Ownqk-hk-opwszcj kidney injury: Code(s): N17.9 - Acute kidney failure, unspecified; N18.9 - Chronic kidney disease, unspecified Status: Acute Assessment and Plan: Baseline creatinine around 2. Presented with creatinine of 6.4. She had metabolic acidosis and hyperkalemia. Renal ultrasound shows unremarkable kidneys with no hydronephrosis Potassium level has improved with Lokelma 07/21 temporary hemodialysis catheter was placed. Hemodialysis session was attempted but had to be discontinued due to low blood pressure. Patient had just returned from surgery and had general anesthesia and was also received antihypertensive medications in the morning. 07/22 ultrafiltration was done but only 1 L fluid was removed due to catheter. Proteinuria noted with Prot/Cr >3.8g She continues to have good urine output in response to Lasix although creatinine remains elevated Blood pressure noted. Appreciate nephrology input. Remove Chen. (6) Diabetes mellitus with hyperglycemia: Code(s): E11.65 - Type 2 diabetes mellitus with hyperglycemia Status: Acute Assessment and Plan: 8A1c 7.0. The patient's blood glucose was reviewed on 07/26 Glucose remains well controlled. Continue AccuCheks covering with sliding
[2022-07-26 17:33] LABS: Glucose Point of Care 146 mg/dl (65-105)
[2022-07-26] MEDS: ERTAPENEM SODIUM 0.5 GM in SODIUM CHLORIDE 0.9% IV 50 ML IVPB (17:55)
[2022-07-27] VITALS (11 sets, daily range): BP systolic 149–167; BP diastolic 72–80; PULSE 67–77; RESP 14–18; TEMP 36.5–37.1; O2SAT 94–99
[2022-07-27 00:45] LABS: Glucose Point of Care 147 mg/dl (65-105)
[2022-07-27] MEDS: CENTRAL LINE FLUSH 10 ML IV PUSH ×3 (06:03→21:57)
[2022-07-27 06:38] LABS: Hematocrit 31.6 % (37.0-47.0); Mean Corpuscular HGB Conc 31.6 g/dl (32-36); Mean Corpuscular Hemoglobin 28.6 pg (26-34); Mean Corpuscular Volume 90.3 fl (80-100); Mean Platelet Volume 9.5 fl (7.4-10.4); Platelet Count Result 178 k/mm3 (150-375); Red Cell Distribution Width 15.9 % (11.5-14.5); White Blood Count 9.7 K/mm3 (4.5-10.0)
[2022-07-27 06:48] LABS: Alanine Aminotransferase 14 U/L (6-35); Alkaline Phosphatase 86 U/L (38-126); Anion Gap 6 mmol/L (8-16); Aspartate Amino Transferase 26 U/L (14-36); Bilirubin,Total 0.5 mg/dL (0.2-1.3); Blood Urea Nitrogen 65 mg/dL (7-17); Calcium 7.8 mg/dL (8.4-10.2); Carbon Dioxide 30 mmol/L (22-30); Chloride 98 mmol/L (98-107); Estimated CRCL calculation 19 ml/min; Estimated Glomerular Filt Rate 12; Glucose 119 mg/dL (65-110); Magnesium 1.7 mg/dL (1.6-2.3); Phosphorus 7.3 mg/dL (2.5-4.5); Sodium 134 mmol/L (137-145)
[2022-07-27 08:14] LABS: Glucose Point of Care 112 mg/dl (65-105)
--- NOTE | 2022-07-27 08:23 | PM.PNNEP ---
Progress Note: A&P Assessment and Plan (1) Ucnqs-zr-rkrtppy kidney injury: Code(s): N17.9 - Acute kidney failure, unspecified; N18.9 - Chronic kidney disease, unspecified Status: Acute Assessment and Plan: The patient has chronic kidney disease. Baseline creatinine is around 2 and her GFR is reflective of stage 4 chronic kidney disease. It is unclear if she sees anybody as an outpatient as she cannot give a history. Most likely this is due to diabetes and high blood pressure. The patient has acute kidney injury as well. urine electrolytes are pre renal. Renal ultrasound is normal. UA shows a few white cells and few red cells. CK is high but not enough to cause kidney disease She has CHRIS, most likely due to prior hypotension, infection, ATN She is on oral diuretics now. Intake/output was 200 in and 2050 out. Creatinine fell to 3.9 today. Electrolytes doing well. Okay for discharge. Discussed with Dr. Burgos She has had a PICC line in for prior round of antibiotics. We can continue to use this and then remove it when done with this round of antibiotics. (2) Hyperkalemia: Code(s): E87.5 - Hyperkalemia Status: Acute Assessment and Plan: Resolved. (3) Metabolic acidosis with respiratory acidosis: Code(s): E87.4 - Mixed disorder of acid-base balance Status: Acute Assessment and Plan: Resolved (4) Sepsis: Code(s): A41.9 - Sepsis, unspecified organism Status: Acute Assessment and Plan: the patient has cultures done On ertapenem and amoxicillin along with vancomycin. (5) Hyperglycemia due to type 2 diabetes mellitus: Qualifiers: Diabetes mellitus terminal press operator insulin use: with terminal press operator use Qualified Code(s): E11.65 - Type 2 diabetes mellitus with hyperglycemia; Z79.4 - group home (current) use of insulin Code(s): E11.65 - Type 2 diabetes mellitus with hyperglycemia Status: Acute Assessment and Plan: the patient is on Accu-Cheks and sliding scale insulin (6) Hypertension: Code(s): I10 - Essential (primary) hypertension Status: Acute Assessment and Plan: blood pressure is a bit high. Will change amlodipine to diltiazem because of all the protein in the urine. LVEF 60-65%. Subjective Date/time seen: 07/27/22 08:23 Interval history: Josy is feeling okay. Resting comfortably in bed. Exam Narrative: WDWN Female intubated and sedated in the ICU in NAD skin no rash or subQ nodules head ncat lungs lungs clear bilaterally cor reg no rub or gallop abd BS+ nontender ext no edema and no cyanosis Objective Data Vital Signs Vital Signs: Vital Signs - 24 hr 07/26/22 08:28 07/26/22 12:04 07/26/22 15:00 Temperature Pulse Rate 74 Respiratory Rate Blood Pressure Pulse Oximetry Oxygen Delivery Room Air Room Air 07/26/22 15:03 07/26/22 16:00 07/26/22 21:06 Temperature 98.4 F Pulse Rate 73 73 64 Respiratory Rate 18 Blood Pressure 153/83 H Pulse Oximetry 96 Oxygen Delivery 07/26/22 21:29 07/26/22 20:00 07/26/22 20:00 Temperature 98.1 F Pulse Rate 71 69 Respiratory Rate 20 Blood Pressure 136/69 Pulse Oximetry 98 Oxygen Delivery Room Air 07/27/22 05:46 07/27/22 00:00 07/27/22 04:00 Temperature 97.7 F Pulse Rate 72 73 72 Respiratory Rate 14 Blood Pressure 149/72 H Pulse Oximetry 94 Oxygen Delivery Intake/Output Intake/Output: Intake & Output 07/24/22 07/25/22 07/26/22 07/27/22 23:59 23:59 23:59 23:59 Intake Total 250 1360 200 50 Output Total 3285 2700 2050 600 Balance -3035 -1340 -1850 -550 Meds/Results Medications: Active Medications Generic Name Dose Route Start Last Admin Trade Name Freq PRN Reason Stop Dose Admin Acetaminophen 650 mg 07/18/22 23:51 Acetaminophen Elixir 325 Mg/10.15 Ml Udc PO Q6H PRN Mild Pain (1-3) or Fever Albuter
[2022-07-27] MEDS: ENOXAPARIN 30 MG/0.3 ML SYRINGE SUB-Q (08:28)
[2022-07-27] MEDS: FUROSEMIDE 40 MG TABLET PO (08:29)
[2022-07-27] MEDS: PANTOPRAZOLE SODIUM IV 40 MG VIAL IV PUSH (08:29)
[2022-07-27] MEDS: carvediloL 12.5 MG TABLET PO ×2 (08:29→21:57)
[2022-07-27] MEDS: dilTIAZem HCL CD 180 MG CAP.ER.24H PO (08:29)
[2022-07-27] MEDS: AMOXICILLIN 500 MG CAPSULE PO ×3 (08:29→21:57)
[2022-07-27 12:23] LABS: Glucose Point of Care 139 mg/dl (65-105)
[2022-07-27 16:47] LABS: Glucose Point of Care 175 mg/dl (65-105)
--- NOTE | 2022-07-27 17:13 | PM.IMPN ---
Progress Note: A&P Assessment and Plan (1) Acute and chronic respiratory failure: Qualifiers: Respiratory failure complication: hypoxia and hypercapnia Qualified Code(s): J96.21 - Acute and chronic respiratory failure with hypoxia; J96.22 - Acute and chronic respiratory failure with hypercapnia Code(s): J96.20 - Acute and chronic respiratory failure, unspecified whether with hypoxia or hypercapnia Status: Acute Assessment and Plan: Acute Respiratory failure secondary to encephalopathy, sepsis, renal failure and possibly pneumonia. CT chest 07/18 on admission showing focal SQ emphysema right superomedial chest wall, diffuse patchy ground glass density of the lungs with bilateral LL airspace disease. ABG 7.08//72. Patient was intubated 07/18. Patient had clinical improvement. Fluid status improved. Able to tolerate vent wean. Patient extubated on 07/23. Sputum culture negative. MRSA nasal swab negative. No right chest wall SQ crepitus. Weaned to room air. Has hypopnea when sleeping but no hypoxia with apnea link on 3L. She has CONNOR but intolerant to BiPAP. Continue bronchodilators and empiric antibiotics as below. Continue O2 but decrease to 2L while sleeping. (2) Acute osteomyelitis of right calcaneus: Code(s): M86.171 - Other acute osteomyelitis, right ankle and foot Status: Acute Assessment and Plan: Patient was on IV Rocephin as an outpatient for osteo?. Started on vancomycin and cefepime. Patient underwent bilateral heel ulcer debridements with sharp scissor and scalpel of bone, subcutaneous tissue, and skin with placement of bilateral heel wound vac on 07/21. BCx NGTD. Rt heel wound Cx growing ESBL EColi, Enterococcus avium and Providencia from right heel. Lt heel wound Cx growing Staph haemolytics Sensitivities noted for the isolates. Sensitivities of the enterococcus noted. Antibiotics narrowed to Ertapenem. Appreciate general surgery input. Plan for 6 weeks of IV abx. PICC line in place. Add oral Amoxicillin. (3) Sepsis: Code(s): A41.9 - Sepsis, unspecified organism Status: Acute Assessment and Plan: Source of sepsis most likely heel osteomyelitis and cellulitis. Chest x-ray suggest pneumonia but again not very impressive. She also has a PICC line was recently placed but BCx NGTD. Lactic acid was normal. She is afebrile and WBC has normalized. Continue antibiotics as above (4) Pressure ulcer, heel, left, unstageable: Code(s): L89.620 - Pressure ulcer of left heel, unstageable Status: Acute Assessment and Plan: Status post debridement 07/21 and currently has wound VAC. Wound care following. As above (5) Fmpxz-oe-strkdzj kidney injury: Code(s): N17.9 - Acute kidney failure, unspecified; N18.9 - Chronic kidney disease, unspecified Status: Acute Assessment and Plan: Baseline creatinine around 2. Presented with creatinine of 6.4. She had metabolic acidosis and hyperkalemia. Renal ultrasound shows unremarkable kidneys with no hydronephrosis Potassium level has improved with Lokelma 07/21 temporary hemodialysis catheter was placed. Hemodialysis session was attempted but had to be discontinued due to low blood pressure. Patient had just returned from surgery and had general anesthesia and was also received antihypertensive medications in the morning. 07/22 ultrafiltration was done but only 1 L fluid was removed due to catheter. Proteinuria noted with Prot/Cr >3.8g She continues to have good urine output in response to Lasix. Creatinine remains elevated but trending down and now at 3.9 Blood pressure noted. Appreciate nephrology input. (6) Diabetes mellitus with hyperglycemia: Code(s): E11.65 - Type 2 diabetes mellitus with hyperglycemia Status: Acute Assessment and Plan: 8A1c 7.0. The patient's blood glucose was reviewed on 07/27 Glucose remains well controlled. Continue AccuCheks covering with sl
[2022-07-27] MEDS: ERTAPENEM SODIUM 0.5 GM in SODIUM CHLORIDE 0.9% IV 50 ML IVPB (17:51)
[2022-07-27 22:54] LABS: Glucose Point of Care 138 mg/dl (65-105)
[2022-07-28] VITALS (7 sets, daily range): BP systolic 117–170; BP diastolic 55–85; PULSE 65–73; RESP 14–18; TEMP 36.7–37.1; O2SAT 98–99
[2022-07-28] MEDS: CENTRAL LINE FLUSH 10 ML IV PUSH ×2 (04:59→14:43)
[2022-07-28] MEDS: AMOXICILLIN 500 MG CAPSULE PO (04:59)
[2022-07-28 05:05] LABS: Hematocrit 31.8 % (37.0-47.0); Hemoglobin 10.1 g/dL (12.0-15.0); Mean Corpuscular HGB Conc 31.8 g/dl (32-36); Mean Corpuscular Hemoglobin 28.5 pg (26-34); Mean Corpuscular Volume 89.6 fl (80-100); Mean Platelet Volume 9.4 fl (7.4-10.4); Platelet Count Result 182 k/mm3 (150-375); Red Blood Count 3.55 M/mm3 (4.2-5.4); Red Cell Distribution Width 15.4 % (11.5-14.5); White Blood Count 9.8 K/mm3 (4.5-10.0)
[2022-07-28 05:19] LABS: Alanine Aminotransferase 16 U/L (6-35); Alkaline Phosphatase 85 U/L (38-126); Anion Gap 5 mmol/L (8-16); Aspartate Amino Transferase 29 U/L (14-36); Bilirubin,Total 0.5 mg/dL (0.2-1.3); Blood Urea Nitrogen 62 mg/dL (7-17); Calcium 7.8 mg/dL (8.4-10.2); Carbon Dioxide 30 mmol/L (22-30); Chloride 98 mmol/L (98-107); Estimated CRCL calculation 20 ml/min; Estimated Glomerular Filt Rate 13; Glucose 130 mg/dL (65-110); Magnesium 1.6 mg/dL (1.6-2.3); Potassium 3.7 mmol/L (3.4-5.0); Sodium 133 mmol/L (137-145)
[2022-07-28 05:30] LABS: Vancomycin Random 13.4 ug/mL (10-20)
[2022-07-28 06:36] LABS: Glucose Point of Care 124 mg/dl (65-105)
[2022-07-28 08:22] LABS: Glucose Point of Care 137 mg/dl (65-105)
[2022-07-28] MEDS: carvediloL 12.5 MG TABLET PO (08:24)
[2022-07-28] MEDS: dilTIAZem HCL CD 180 MG CAP.ER.24H PO (08:25)
[2022-07-28] MEDS: PANTOPRAZOLE SODIUM IV 40 MG VIAL IV PUSH (08:25)
[2022-07-28] MEDS: FUROSEMIDE 40 MG TABLET PO (08:25)
[2022-07-28] MEDS: ENOXAPARIN 30 MG/0.3 ML SYRINGE SUB-Q (08:26)
--- NOTE | 2022-07-28 08:36 | PM.IMPN ---
Progress Note: A&P Assessment and Plan (1) Acute and chronic respiratory failure: Qualifiers: Respiratory failure complication: hypoxia and hypercapnia Qualified Code(s): J96.21 - Acute and chronic respiratory failure with hypoxia; J96.22 - Acute and chronic respiratory failure with hypercapnia Code(s): J96.20 - Acute and chronic respiratory failure, unspecified whether with hypoxia or hypercapnia Status: Acute Assessment and Plan: Acute Respiratory failure secondary to encephalopathy, sepsis, renal failure and possibly pneumonia. CT chest 07/18 on admission showing focal SQ emphysema right superomedial chest wall, diffuse patchy ground glass density of the lungs with bilateral LL airspace disease. ABG 7.08//72. Patient was intubated 07/18. Patient had clinical improvement. Fluid status improved. Able to tolerate vent wean. Patient extubated on 07/23. Sputum culture negative. MRSA nasal swab negative. No right chest wall SQ crepitus. Weaned to room air. Has hypopnea when sleeping but no hypoxia with apnea link on 3L. She has CONNOR but intolerant to BiPAP. Continue bronchodilators and empiric antibiotics as below. Continue O2 but decrease to 2L while sleeping. (2) Acute osteomyelitis of right calcaneus: Code(s): M86.171 - Other acute osteomyelitis, right ankle and foot Status: Acute Assessment and Plan: Patient was on IV Rocephin as an outpatient for osteo?. Started on vancomycin and cefepime. Patient underwent bilateral heel ulcer debridements with sharp scissor and scalpel of bone, subcutaneous tissue, and skin with placement of bilateral heel wound vac on 07/21. BCx NGTD. Rt heel wound Cx growing ESBL EColi, Enterococcus avium and Providencia from right heel. Lt heel wound Cx growing Staph haemolytics Sensitivities noted for the isolates. Sensitivities of the enterococcus noted. Antibiotics narrowed to Ertapenem and Vanco. Amox added but decided to keep her on Vanco. Appreciate general surgery input. Plan for 6 weeks of IV abx. PICC line in place. (3) Sepsis: Code(s): A41.9 - Sepsis, unspecified organism Status: Acute Assessment and Plan: Source of sepsis most likely heel osteomyelitis and cellulitis. Chest x-ray suggest pneumonia but again not very impressive. She also has a PICC line was recently placed but BCx NGTD. Lactic acid was normal. She is afebrile and WBC has normalized. Continue antibiotics as above (4) Pressure ulcer, heel, left, unstageable: Code(s): L89.620 - Pressure ulcer of left heel, unstageable Status: Acute Assessment and Plan: Status post debridement 07/21 and currently has wound VAC to both heels. Wound care following. As above (5) [id number] kidney injury: Code(s): N17.9 - Acute kidney failure, unspecified; N18.9 - Chronic kidney disease, unspecified Status: Acute Assessment and Plan: Baseline creatinine around 2. Presented with creatinine of 6.4. She had metabolic acidosis and hyperkalemia. Renal ultrasound shows unremarkable kidneys with no hydronephrosis Potassium level has improved with Lokelma 07/21 temporary hemodialysis catheter was placed. Hemodialysis session was attempted but had to be discontinued due to low blood pressure. Patient had just returned from surgery and had general anesthesia and was also received antihypertensive medications in the morning. 07/22 ultrafiltration was done but only 1 L fluid was removed due to catheter. Proteinuria noted with Prot/Cr >3.8g She continues to have good urine output in response to Lasix. Creatinine remains elevated but trending down and now at 3.6. HD line removed. Blood pressure noted with wide range. Appreciate nephrology input. (6) Diabetes mellitus with hyperglycemia: Code(s): E11.65 - Type 2 diabetes mellitus with hyperglycemia Status: Acute Assessment and Plan: 8A1c 7.0. The patient's blood glucose was revie
--- NOTE | 2022-07-28 11:28 | P.PNNP_ITS ---
Progress Note: A&P Assessment and Plan (1) CHRIS (acute kidney injury): Code(s): N17.9 - Acute kidney failure, unspecified Status: Acute Assessment and Plan: * due to previous hypotension + infection/sepsis leading to ATN * evaluation to date noted: * urine electrolytes prerenal * renal ultrasound normal * UA shows a few white cells and few red cells * CK was elevated but not enough to cause kidney disease * creatinine continues to improve * she may have a new baseline creatinine given the severity of the CHRIS * continue supportive therapy (2) Chronic kidney disease, stage 4 (severe): Code(s): N18.4 - Chronic kidney disease, stage 4 (severe) Status: Chronic Assessment and Plan: * baseline creatinine is around 2.0 - 2.5mg/dl * likely secondary to diabetes and high blood pressure (3) Hyperkalemia: Code(s): E87.5 - Hyperkalemia Status: Resolved Assessment and Plan: * resolved * due to CHRIS/ARF (4) Sepsis: Code(s): A41.9 - Sepsis, unspecified organism Status: Acute Assessment and Plan: * resolving * on antibiotics * culture data noted (5) Hypertension: Code(s): I10 - Essential (primary) hypertension Status: Acute Assessment and Plan: * up and down * continue current medications for now (recently started on diltiazem) * follow trend of hemodynamics (6) Hyperglycemia due to type 2 diabetes mellitus: Qualifiers: Diabetes mellitus terminal gauger insulin use: with terminal gauger use Qualified Code(s): E11.65 - Type 2 diabetes mellitus with hyperglycemia; Z79.4 - shelter (current) use of insulin Code(s): E11.65 - Type 2 diabetes mellitus with hyperglycemia Status: Acute Assessment and Plan: * follow accuchecks * glycemic control per hospitalists Will continue to follow. Subjective Date/time seen: 07/28/22 11:27 Chart reviewed -- assuming care from Dr. Aceves; no acute complaints voiced but asking me if I can change her diet; no apparent distress noted; no other issues/events overnight or earlier this AM; renal function continues to improve albeit slowly. Exam Narrative: General: WD/WN female in NAD Heart: normal S1 and S2; no rub Lungs: clear to auscultation Abdomen: soft, nontender, nondistended, positive bowel sounds Extremities: no cyanosis or clubbing; no edema Skin: warm and dry Objective Data Vital Signs Vital Signs: Vital Signs Temp Pulse Resp BP Pulse Ox O2 Del Method O2 Flow Rate 07/28/22 08:15 98 Nasal Cannula 2 07/28/22 08:24 98 Nasal Cannula 2 07/28/22 08:24 65 07/28/22 08:23 98.0 F 69 18 151/74 H 98 07/28/22 06:00 98.8 F 72 14 117/55 L 99 07/28/22 04:00 73 07/28/22 00:00 73 07/27/22 20:00 77 07/27/22 20:00 97 Nasal Cannula 2 07/27/22 21:57 71 07/27/22 21:23 98.1 F 71 16 167/80 H 97 07/27/22 16:00 68 07/27/22 14:00 98.7 F 70 18 160/80 H 99 Intake/Output Intake/Output: Intake & Output 07/25/22 07/26/22 07/27/22 07/28/22 23:59 23:59 23:59 23:59 Intake Total 1360 250 580 100 Output Total 2700 2050 900 300 Balance -1340 -1800 -320 -
--- NOTE | 2022-07-28 11:28 | PM.PNNEP ---
Progress Note: A&P Assessment and Plan (1) CHRIS (acute kidney injury): Code(s): N17.9 - Acute kidney failure, unspecified Status: Acute Assessment and Plan: due to previous hypotension + infection/sepsis leading to ATN evaluation to date noted: urine electrolytes prerenal renal ultrasound normal UA shows a few white cells and few red cells CK was elevated but not enough to cause kidney disease creatinine continues to improve she may have a new baseline creatinine given the severity of the CHRIS continue supportive therapy (2) Chronic kidney disease, stage 4 (severe): Code(s): N18.4 - Chronic kidney disease, stage 4 (severe) Status: Chronic Assessment and Plan: baseline creatinine is around 2.0 - 2.5mg/dl likely secondary to diabetes and high blood pressure (3) Hyperkalemia: Code(s): E87.5 - Hyperkalemia Status: Resolved Assessment and Plan: resolved due to CHRIS/ARF (4) Sepsis: Code(s): A41.9 - Sepsis, unspecified organism Status: Acute Assessment and Plan: resolving on antibiotics culture data noted (5) Hypertension: Code(s): I10 - Essential (primary) hypertension Status: Acute Assessment and Plan: up and down continue current medications for now (recently started on diltiazem) follow trend of hemodynamics (6) Hyperglycemia due to type 2 diabetes mellitus: Qualifiers: Diabetes mellitus nursing home insulin use: with nursing home use Qualified Code(s): E11.65 - Type 2 diabetes mellitus with hyperglycemia; Z79.4 - salvage determiner (current) use of insulin Code(s): E11.65 - Type 2 diabetes mellitus with hyperglycemia Status: Acute Assessment and Plan: follow accuchecks glycemic control per hospitalists Will continue to follow. Subjective Date/time seen: 07/28/22 11:27 Chart reviewed -- assuming care from Dr. Aceves; no acute complaints voiced but asking me if I can change her diet; no apparent distress noted; no other issues/events overnight or earlier this AM; renal function continues to improve albeit slowly. Exam Narrative: General: WD/WN female in NAD Heart: normal S1 and S2; no rub Lungs: clear to auscultation Abdomen: soft, nontender, nondistended, positive bowel sounds Extremities: no cyanosis or clubbing; no edema Skin: warm and dry Objective Data Vital Signs Vital Signs: Vital Signs Temp Pulse Resp BP Pulse Ox O2 Del Method O2 Flow Rate 07/28/22 08:15 98 Nasal Cannula 2 07/28/22 08:24 98 Nasal Cannula 2 07/28/22 08:24 65 07/28/22 08:23 98.0 F 69 18 151/74 H 98 07/28/22 06:00 98.8 F 72 14 117/55 L 99 07/28/22 04:00 73 07/28/22 00:00 73 07/27/22 20:00 77 07/27/22 20:00 97 Nasal Cannula 2 07/27/22 21:57 71 07/27/22 21:23 98.1 F 71 16 167/80 H 97 07/27/22 16:00 68 07/27/22 14:00 98.7 F 70 18 160/80 H 99 Intake/Output Intake/Output: Intake & Output 07/25/22 07/26/22 07/27/22 07/28/22 23:59 23:59 23:59 23:59 Intake Total 1360 250 580 100 Output Total 2700 2050 900 300 Balance -1340 -1800 -320 -200 Meds/Results Medications: Active Medications Generic Name Dose Route Start Last Admin Trade Name Freq PRN Reason Stop Dose Admin Acetaminophen 650 mg 07/18/22 23:51 Acetaminophen Elixir 325 Mg/10.15 Ml Udc PO Q6H PRN Mild Pain (1-3) or Fever Albuterol 2.5 mg 07/19/22 10:43 Albuterol Sulfate Neb 2.5 Mg/3 Ml Inh INHALATION Q4HRT PRN Wheezing Carvedilol 12.5 mg 07/20/22 09:00 07/28/22 08:24 Carvedilol 12.5 Mg Tablet PO 12.5 mg Q12HR GRANT Administration Clonidine HCl 0.1 mg 07/22/22 07:15 07/22/22 18:33 Clonidine Hcl 0.1 Mg Tablet FEED TUBE 0.1 mg Q6HR PRN Administration systolic above 160 Dextrose 12.5 gm 07/18/22 23:48 Dextrose 50% 25 Gm/50 Ml Syringe IV PUS
--- NOTE | 2022-07-28 12:28 | PM.PNGS ---
Progress Note: A&P Assessment and Plan (1) Chronic heel ulcer: Code(s): L97.409 - Non-pressure chronic ulcer of unspecified heel and midfoot with unspecified severity Status: Acute Assessment and Plan: S/p excisional debridement bilateral heel ulcers on 07/21/22. Bilateral heel wounds continue to heal well with wound vac therapy. No need for further debridement at this time. Okay to discharge from a surgical standpoint when medically stable, continue wound vac therapy on discharge. Will set up a follow-up with Dr. Chan in the wound clinic in a few weeks. (2) Acute osteomyelitis of right calcaneus: Code(s): M86.171 - Other acute osteomyelitis, right ankle and foot Status: Acute Assessment and Plan: Planning for 6 weeks of IV antibiotics, antibiotics narrowed to Ertapenem following cultures. Plan I have discussed the patient's case and plan of care with Dr. Chan. Subjective Subjective Date/Time Seen: 07/28/22 10:28 Interval history: The patient is seen today with the wound care nurses on the medical floor for wound vac dressing change. Per nursing, there is possibility of discharge today. Bilateral heel wound vacs were removed prior to my arrival by wound care. Exam Narrative: Bilateral heel ulcers with healthy viable granulation tissue forming, wound measurements are documented in the wound care nurse's assessment. Drainage in the wound vac is minimal serosanguineous drainage. On the right heel, there are two small areas of dusky tissue (< 10% of the wound bed) over the calcaneus noted, no significant necrotic tissue that wound need debridement, bone exposed. On the left heel, majority of the wound bed is viable granulation tissue with a tiny area of dark dusky tissue near the center of the wound (again <10% of the wound), no necrotic tissue that would require debridement. Objective Data Vital Signs Vital Signs: Vital Signs - 24 hr 07/27/22 14:00 07/27/22 16:00 07/27/22 21:23 Temperature 98.7 F 98.1 F Pulse Rate 70 68 71 Respiratory Rate 18 16 Blood Pressure 160/80 H 167/80 H Pulse Oximetry 99 97 Oxygen Delivery Oxygen Flow Rate 07/27/22 21:57 07/27/22 20:00 07/27/22 20:00 Temperature Pulse Rate 71 77 Respiratory Rate Blood Pressure Pulse Oximetry 97 Oxygen Delivery Nasal Cannula Oxygen Flow Rate 2 03/20/23 00:00 07/28/22 04:00 07/28/22 06:00 Temperature 98.8 F Pulse Rate 73 73 72 Respiratory Rate 14 Blood Pressure 117/55 L Pulse Oximetry 99 Oxygen Delivery Oxygen Flow Rate 07/28/22 08:23 07/28/22 08:24 07/28/22 08:24 Temperature 98.0 F Pulse Rate 69 65 Respiratory Rate 18 Blood Pressure 151/74 H Pulse Oximetry 98 98 Oxygen Delivery Nasal Cannula Oxygen Flow Rate 2 07/28/22 08:15 Temperature Pulse Rate Respiratory Rate Blood Pressure Pulse Oximetry 98 Oxygen Delivery Nasal Cannula Oxygen Flow Rate 2 Intake/Output Intake/Output: Intake & Output 07/25/22 07/26/22 07/27/22 07/28/22 23:59 23:59 23:59 23:59 Intake Total 1360 250 580 100 Output Total 2700 2050 900 300 Balance -1340 -1800 -320 -200 Meds/Results Medications: Active Medications Generic Name Dose Route Start Last Admin Trade Name Freq PRN Reason Stop Dose Admin Acetaminophen 650 mg 07/18/22 23:51 Acetaminophen Elixir 325 Mg/10.15 Ml Udc PO Q6H PRN Mild Pain (1-3) or Fever Albuterol 2.5 mg 07/19/22 10:43 Albuterol Sulfate Neb 2.5 Mg/3 Ml Inh INHALATION Q4HRT PRN Wheezing Carvedilol 12.5 mg 07/20/22 09:00 07/28/22 08:24 Carvedilol 12.5 Mg Tablet PO 12.5 mg Q12HR GRANT Administration Clonidine HCl 0.1 mg 07/22/22 07:15 07/22/22 18:33 Clonidine Hcl 0.1 Mg Tablet FEED TUBE 0.1 mg Q6HR PRN Administration systolic above 160 Dextrose 12.5 gm 07/18/22 23:48 Dextrose 50% 25 Gm/50 Ml Syringe IV PUSH PRN PRN Hypoglycemia Protocol Diltiaz
[2022-07-28 12:36] LABS: Glucose Point of Care 133 mg/dl (65-105)
--- NOTE | 2022-07-28 17:12 | PM.DS ---
DS: Admitting Diagnosis Discharge Date 07/28/22 Admitting Diagnosis Altered mental status DS: Discharge Diagnosis Discharge Diagnosis (1) Acute and chronic respiratory failure: Qualifiers: Respiratory failure complication: hypoxia and hypercapnia Qualified Code(s): J96.21 - Acute and chronic respiratory failure with hypoxia; J96.22 - Acute and chronic respiratory failure with hypercapnia Code(s): J96.20 - Acute and chronic respiratory failure, unspecified whether with hypoxia or hypercapnia Status: Acute (2) Acute osteomyelitis of right calcaneus: Code(s): M86.171 - Other acute osteomyelitis, right ankle and foot Status: Acute (3) Sepsis: Code(s): A41.9 - Sepsis, unspecified organism Status: Acute (4) Pressure ulcer, heel, left, unstageable: Code(s): L89.620 - Pressure ulcer of left heel, unstageable Status: Acute (5) [id number] kidney injury: Code(s): N17.9 - Acute kidney failure, unspecified; N18.9 - Chronic kidney disease, unspecified Status: Acute (6) Diabetes mellitus with hyperglycemia: Code(s): E11.65 - Type 2 diabetes mellitus with hyperglycemia Status: Acute (7) Encephalopathy acute: Code(s): G93.40 - Encephalopathy, unspecified Status: Acute (8) Hypertension, uncontrolled: Code(s): I10 - Essential (primary) hypertension Status: Acute DS: Summary Hospital Course Reason for hospitalization: 52yo female with DM, CKD, CHF and hepatitis-C presented with altered mental status. Please see H&P for details. Hospital Course: She developed acute Respiratory failure secondary to encephalopathy, sepsis, renal failure and possibly pneumonia. CT chest 07/18 on admission showing focal SQ emphysema right superomedial chest wall, diffuse patchy ground glass density of the lungs with bilateral LL airspace disease. ABG 7.08//72. Patient was intubated on 07/18. Patient had clinical improvement. Fluid status improved. Able to tolerate vent wean and extubated on 07/23. Sputum culture negative. MRSA nasal swab negative. No right chest wall SQ crepitus. Weaned to room air. Has hypopnea when sleeping but no hypoxia with apnea link on 3L. She has CONNOR but intolerant to BiPAP. Will plan to continue O2 at 2L while sleeping. Patient found to have acute osteomyelitis of right calcaneus. She was on IV Rocephin as an outpatient for probably osteomyelitis.? She was started on vancomycin and cefepime. Patient underwent bilateral heel ulcer debridements with sharp scissor and scalpel of bone, subcutaneous tissue, and skin with placement of bilateral heel wound vac on 07/21. BCx NGTD. Rt heel wound Cx growing ESBL EColi, Enterococcus avium and Providencia Lt heel wound Cx growing Staph haemolytics. Sensitivities noted for the isolates. Antibiotics narrowed to Ertapenem and Vanco with plans for 6 weeks of therapy. PICC line in place prior to admission.?Source of sepsis most likely heel osteomyelitis and cellulitis.? Chest x-ray suggest pneumonia but not very impressive.? She also has a PICC line was recently placed but BCx NGTD. Lactic acid was normal. She was afebrile and WBC has normalized. She also has eoyzl-rq-[id number] kidney injury. Baseline creatinine around 2 but presented with creatinine of 6.4. She had metabolic acidosis and hyperkalemia. Renal ultrasound shows unremarkable kidneys with no hydronephrosis. Potassium level improved with Lokelma. Temporary hemodialysis catheter was placed 07/21 but hemodialysis session was attempted but had to be discontinued due to low blood pressure. Ultrafiltration was done 07/22 but only 1 L fluid was removed. Proteinuria noted with Prot/Cr >3.8g. We held off on repeat dialysis since she was making urine. She responded to Lasix. Creatinine remained elevated but trended down and now at 3.6. HD line wsa removed. Blood pressure noted with wide range.A1c 7.0. The patient's blood glucose was monitored with AccuChe
[2022-07-28 17:31] LABS: Glucose Point of Care 173 mg/dl (65-105)
[2022-07-28] MEDS: ERTAPENEM SODIUM 0.5 GM in SODIUM CHLORIDE 0.9% IV 50 ML IVPB (18:07)
[2022-07-28 18:27] LABS: EDCOVIDSCREEN Negative (Negative)
== END 2022-07-28 19:29 | DRG 720 ==
LOC: ANHED 13:24 → ANHICU 17:34 → ANHIMU 07-25 15:38 → ANH2MED 07-25 23:18
PROVIDERS: Internal Medicine; Internal Medicine Nephrology; Physician Assistant; Student in an Organized Health Care Education/Training Program; Surgery; Admitting Provider Chiropractor; Emergency Provider Emergency Medicine; PCP Family Medicine; Visit Provider Internal Medicine
DX: A41.51 Sepsis due to Escherichia coli [E. coli] (principal); J96.21 Acute and chronic respiratory failure with hypoxia; N17.0 Acute kidney failure with tubular necrosis; G93.41 Metabolic encephalopathy; J18.9 Pneumonia, unspecified organism; E11.22 Type 2 diabetes mellitus with diabetic chronic kidney disease; N18.4 Chronic kidney disease, stage 4 (severe); A41.81 Sepsis due to Enterococcus; I12.9 Hypertensive chronic kidney disease with stage 1 through stage 4 chronic kidney disease, or unspecified chronic kidney disease; E86.0 Dehydration; M86.171 Other acute osteomyelitis, right ankle and foot; J96.22 Acute and chronic respiratory failure with hypercapnia; R65.20 Severe sepsis without septic shock; G47.33 Obstructive sleep apnea (adult) (pediatric); E11.65 Type 2 diabetes mellitus with hyperglycemia; L89.620 Pressure ulcer of left heel, unstageable; E87.5 Hyperkalemia; Z79.4 Long term (current) use of insulin; Z20.822 Contact with and (suspected) exposure to COVID-19; F17.210 Nicotine dependence, cigarettes, uncomplicated; E66.01 Morbid (severe) obesity due to excess calories; Z68.41 Body mass index [BMI] 40.0-44.9, adult
CPT/HCPCS: 36415; 36600; 70450; 71045; 71250; 73620; 74176; 76775; 77001; 80048; 80053; 80202; 81001; 82140; 82375; 82436; 82533; 82550; 82570; 82805; 82948; 83036; 83050; 83605; 83690; 83735; 83880; 83930; 83935; 84100; 84133; 84156; 84300; 84478; 84484; 85025; 85027; 85610; 85652; 85730; 85999; 86038; 86160; 86705; 86706; 87040; 87070; 87075; 87077; 87081; 87086; 87088; 87147; 87181; 87186; 87205; 87340; 87426; 87636; 92610; 92611; 93005; 94002; 94003; 94640; 94660; 94762; 96361; 96365; 96366; 96367; 96368; 96375; 99285; C1752; A9270; C9113; C9803; G0257; J0360; J0610; J0692; J0834; J1335; J1644; J1650; J1815; J1940; J1956; J2250; J2370; J2543; J2704; J3010; J3370; J3475; J3480; J7030; J7070; J7120; P9047